=== PATIENT | female | born 1950 | race Caucasian/White ===

== ENCOUNTER 2024-02-16 07:30 | Outpatient (RCR) | payer MEDICARE, MEDICAID, SELFPAY | END 2024-02-23 23:59 | disposition home or self-care (01) | LOC: INF 07:30 | PROVIDERS: Visit Provider Internal Medicine Hematology & Oncology | DX: C34.92 Malignant neoplasm of unspecified part of left bronchus or lung (principal) | CPT/HCPCS: G0463 ==

== ENCOUNTER 2024-03-08 07:42 | Outpatient (RCR) | payer MEDICARE, MEDICAID, SELFPAY | END 2024-03-25 23:59 | disposition home or self-care (01) | LOC: INF 07:42 | PROVIDERS: Visit Provider Internal Medicine Hematology & Oncology | DX: C34.92 Malignant neoplasm of unspecified part of left bronchus or lung (principal); F17.210 Nicotine dependence, cigarettes, uncomplicated; Z90.710 Acquired absence of both cervix and uterus; J43.9 Emphysema, unspecified | CPT/HCPCS: G0463 ==

== ENCOUNTER 2024-05-03 07:30 | Outpatient (RCR) | payer MEDICARE, MEDICAID, SELFPAY | END 2024-05-05 15:27 | disposition home or self-care (01) | LOC: INF 07:30 | PROVIDERS: Visit Provider Internal Medicine Hematology & Oncology | DX: C34.92 Malignant neoplasm of unspecified part of left bronchus or lung (principal) | CPT/HCPCS: G0463 ==

== ENCOUNTER 2024-06-02 13:08 | Outpatient (OUT) | payer MEDICARE, MEDICAID, SELFPAY ==
--- NOTE | 2024-06-02 13:10 | VEIN_ITS ---
[place] [address] Patient Name: NICOLAS PATEL MRN: [id number] date: 1950 Sex: F Assigned Patient Location: Current Patient Location: Accession/Order Number: [id number] Exam Date: 06/02/2024 13:10 Report Date: 06/02/2024 15:39 At the request of: EUNICE TAYLOR Procedure: VC US Carotid EXAM: VC US Carotid HISTORY: Bilateral carotid bruit R09.89 COMPARISON: None. TECHNIQUE: Grayscale, color and Doppler FINDINGS: Right carotid artery PSV/EDV centimeters per second: Moderate atherosclerotic plaque CCA: 91/28 ICA: 99/33 Bulb: 81/26 ECA: 93/40 Vertebral: 43/12, antegrade ICA/CCA ratio 1.3 Maximum area of reduction 56% in the proximal ICA Left carotid artery PSV/EDV centimeters per second: Moderate atherosclerotic plaque CCA: 83/26 ICA: 167/55 Bulb: 87/31 ECA: 91/20 Vertebral: 29/14, antegrade ICA/CCA ratio 2.6 Maximum area of reduction 58% in the bulb, 75% in the proximal ICA VEIN/VC US Carotid IMPRESSION: 56% area reduction proximal right ICA 75% area reduction proximal left ICA Electronically authenticated by: NIK MONTEIRO Date: 06/02/2024 15:39
--- NOTE | 2024-06-02 13:10 | VEIN_ITS ---
The [address] [address] Patient Name: NICOLAS PATEL MRN: [id number] date: 1950 Sex: F Assigned Patient Location: Current Patient Location: Accession/Order Number: [id number] Exam Date: 06/02/2024 13:10 Report Date: 06/02/2024 16:42 At the request of: EUNICE TAYLOR Procedure: VC SEGMENTAL PRESSURES EXAM: VC SEGMENTAL PRESSURES HISTORY: I73.9 Peripheral vascular disease COMPARISON: None. FINDINGS: Segmental pressures presented as follows (right, left) in mmHg. Brachial: 120, 121 Upper thigh: 131, 130 Lower thigh: 138, 135 Calf: 138, 117 DPA: 106, 127 SCRAP HANDLER: 113, 117 1st Toe: 83, 85 DHEERAJ: 0.93, 1.05 TBI: 0.69, 0.70 The ABIs demonstrates mild right arterial occlusive disease, normal left The TBI's are normal PVR waveforms: Right leg: Thigh: Normal Above knee: Normal Below knee: Normal Right ankle: Normal Metatarsal: Mild ischemia Left leg: Thigh: Normal Above knee: Normal Below knee: Normal Right ankle: Normal Metatarsal: Normal VEIN/VC SEGMENTAL PRESSURES IMPRESSION: Mild ischemic waveform right metatarsal Normal left Electronically authenticated by: NIK MONTEIRO Date: 06/02/2024 16:42
--- OUTSIDE RECORDS SUMMARY | 2024-06-02 13:23 | XMS_ITS | CCD ---
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 Name Role Phone House DO, Sr Miguel Vargas Primary Care Provider WILLIE FORTUNE Admitting Unavailable WILLIE OFRTUNE Attending Unavailable WILLIE FORTUNE Referring Unavailable HOUSE, SR MIGUEL Vargas Primary Care Unavailable HOUSE, DR RIVERA Admitting Unavailable HOUSE, DR RIVERA Attending Unavailable HOUSE, DR RIVERA Primary Care Unavailable HOUSE, DR RIVERA Admitting Unavailable HOUSE, DR RIVERA Attending Unavailable HOUSE, DR RIVERA Consulting Unavailable HOUSE, DR RIVERA Primary Care Unavailable House Miguel NIÑO Primary Care Provider House Miguel NIÑO Primary Care Provider Urszula Etienne Attending Unavailable Miguel Brock Primary Care Unavailable Anisha Wolf Referring Unavailable Urszula Etienne Admitting Unavailable DO Miguel Brock Primary Care Provider MD Urszula Etienne Attending Provider MD Anisha Wolf Referring Provider EILEEN FONSECA Admitting Unavailable EILEEN FONSECA Attending Unavailable HOUSE MIGUEL Sam Primary Care Unavailable EILEEN FONSECA Attending Unavailable EILEEN FONSECA M Referring Unavailable MIGUEL BROCK Primary Care Unavailable FELIX BURNS Attending Unavailable HOUSEMIGUEL Primary Care Unavailable EILEEN FONSECA M Admitting Unavailable RAYMUNDOEILEEN M Attending Unavailable MIGUEL BROCK Primary Care Unavailable PAULA CARNES Attending Unavailable HOUSE, MIGUEL Vargas Primary Care Unavailable RAYMUNDOEILEEN FERNANDEZ M Attending Unavailable RAYMUNDO, EILEEN M Referring Unavailable HOUSE, MIGUEL P Primary Care Unavailable EILEEN FONSECA M Attending Unavailable RAYMUNDOMIANA M Referring Unavailable HOUSE, MIGUEL P Primary Care Unavailable HOUSE, MIGUEL P Primary Care Unavailable TERI, CHAUNCEY L Attending Unavailable TERI, CHAUNCEY L Attending Unavailable TERI, CHAUNCEY L Referring Unavailable HOUSE, MIGUEL P Primary Care Unavailable TERI, CHAUNCEY L Attending Unavailable TERI, CHAUNCEY L Referring Unavailable HOUSE, MIGUEL P Primary Care Unavailable RAYMUNDO, EILEEN M Referring Unavailable HOUSE, MIGUEL P Primary Care Unavailable HOUSE, MIGUEL P Primary Care Unavailable GHENCIAFATEMEH Olson Attending Unavailable GHENCIAN, FATEMEH Attending Unavailable GHENCIAN, FATEMEH Referring Unavailable HOUSE, MIGUEL P Primary Care Unavailable RAYMUNDO, EILEEN M Referring Unavailable HOUSE, MIGUEL P Primary Care Unavailable ANISHA WOLF Referring Unavailable HOUSE, MIGUEL P Primary Care Unavailable HOUSE, MIGUEL P Referring Unavailable HOUSE, MIGUEL P Primary Care Unavailable HOUSE, MIGUEL P Referring Unavailable HOUSE, MIGUEL P Primary Care Unavailable RAYMUNDO, EILEEN M Referring Unavailable HOUSE, MIGUEL P Primary Care Unavailable HOUSE, MIGUEL P Primary Care Unavailable BREANNE ANNE Attending Unavailable MONICA MANUEL Attending Unavailable MONICA MANUEL Referring Unavailable HOUSE, MIGUEL P Primary Care Unavailable RAYMUNDO, EILEEN M Attending Unavailable RAYMUNDO, EILEEN M Referring Unavailable HOUSE, MIGUEL P Primary Care Unavailable RAYMUNDO, EILEEN M Attending Unavailable RAYMUNDO, EILEEN M Referring Unavailable HOUSE, MIGUEL P Primary Care Unavailable RAYMUNDO, EILEEN M Attending Unavailable RAYMUNDO, EILEEN M Referring Unavailable HOUSE, MIGUEL P Primary Care Unavailable HOUSE, MIGUEL P Primary Care Unavailable SYL AMARO Attending Unavailable BETO BLACKWOOD Admitting Unavailable CARDIOLOGY, [facility] Consulting Unavailable SYL AMARO Attending Unavailable SYL AMARO Referring Unavailable HOUSE, MIGUEL P Primary Care Unavailable RAYMUNDO, EILEEN M Attending Unavailable HOUSE, MIGUEL P Referring Unavailable HOUSE, MIGUEL P Primary Care Unavailable RAYMUNDO, EILEEN M Attending Unavailable HOUSE, MIGUEL P Referring Unavailable HOUSE, MIGUEL P Primary Care Unavailable RAYMUNDO, EILEEN M Attending Unavailable HOUSE, MIGUEL P Referring Unavailable HOUSE, MIGUEL P Primary Care Unavailable House, DO Rivera Primary Care Provider [phone] MD Urszula Etienne Attending Provider MD Anisha Wolf Referring Provider VINOD, MIGUEL P Primary Care Unavailable Renzo Gilliland MD Attending Unavailable HOUSE, MIGUEL P Admitting Unavailable HOUSE, MIGUEL P Attending Unavailable HOUSE, MIGUEL P Primary Care Unavailable HOUSE, MIGUEL P Primary Care Unavailable Renzo Gilliland MD Attending Unavailable HOUSE, MIGUEL Vargas Primary Care Unavailable HOUSE, MIGUEL Vargas Primary Care Unavailable Renzo Gilliland MD Attending Unavailable HOUSE, MIGUEL Vargas Primary Care Unavailable Renzo Gilliland MD Attending Unavailable Allergies Allergy Classification Reported Allergen(s) Allergy Type Date of Onset Reaction(s) Facility (2 sources) Sulfamethoxazole / Trimethoprim; Translations: [Bactrim] Drug Allergy [facility] Repository (10 sources) Sulfamethoxazole / Trimethoprim; Translations: [SULFAMETHOXAZOLE-TR IMETHOPRIM] Drug Allergy [employer] Medications Current Medications Medication Drug Class(es) Dates Sig (Normalized) Sig (Original) acetaminophen 325 mg oral tablet (2 sources) Start: 02-12-2021 acetaminophen (TYLENOL) tablet 650 mg End: 02-13-2021 take 2 tablets by mouth every six hours as needed for pain acetaminophen (TYLENOL) 325 MG tablet Take 650 mg by mouth every 6 hours as needed for Pain 0 02/13/2021 Discontinued (Stop Taking at Discharge) [id number] 200 actuat albuterol 0.09 mg/actuat metered dose inhaler (19 sources) beta2-Adrenergic Agonist Start: 08-03-2023 take 2 puff(s) by mouth every four hours as needed albuterol (PROVENTIL HFA;VENTOLIN HFA) 90 mcg/actuation inhaler Indications: Moderate COPD (chronic obstructive pulmonary disease) ([facility]) TAKE 2 PUFFS BY MOUTH EVERY 4 HOURS NEEDED FOR WHEEZE 6.7 g 11 08/03/2023 Active Start: 05-11-2023 take 1 dose by inhal ation four times daily as needed for wheezing albuterol (PROVENTIL,VENTOLIN) 2.5 mg /3 mL (0.083 %) nebulizer solution Indications: Chronic obstructive pulmonary disease, unspecified COPD type ([facility]) INHALE ONE VIAL VIA NEBULIZER FOUR TIMES A DAY NEEDED FOR WHEEZING 360 mL 10 05/11/2023 Active Start: 10-09-2020 take 2 puff(s) by mo uth every four hours as needed for wheezing albuterol sulfate HFA 108 (90 Base) MCG/ACT inhaler INHALE 2 PUFFS BY MOUTH EVERY 4 HOURS NEEDED FOR WHEEZING 0 10/09/2020 Active Start: 09-07-2020 albuterol (PRO VENTIL) (2.5 MG/3ML) 0.083% nebulizer solution INHALE 3 ML VIA NEBULIZER FOUR TIMES A DAY NEEDED FOR WHEEZING 0 09/07/2020 Active Start: 01-12-2019 take 2.5 mg by inhal ation every four hours Albuterol Sulfate Active 2.5 MG INHALATION Q4H January 12, 2019 12:00am take 2 puff(s) by in halation every six hours as needed for wheezing albuterol sulfate HFA 108 (90 BASE) MCG/ACT inhaler Inhale 2 puffs into the lungs every 6 hours as needed for Wheezing 0 Active apixaban 5 mg oral tablet (11 sources) Factor Xa Inhibitor Start: 01-12-2019 End: 02-13-2021 take 1 tablet by mouth twice daily ELIQUIS 5 mg tablet Indications: Paroxysmal atrial fibrillation (CMS-HCC) TAKE 1 TABLET BY MOUTH TWICE DAILY 60 tablet 10 05/06/2022 Active aspirin 81 mg delayed release oral tablet (10 sources) Platelet Aggregation Inhibitor, Nonsteroidal Anti-inflammatory Drug Start: 02-18-2021 take 1 tablet by mouth once daily aspirin 81 mg Take 1 tablet (81 mg total) by mouth daily. 60 tablet 1 02/18/2021 Active Start: 02-13-2021 take 1 tablet by denae th once daily aspirin 81 MG chewable tablet Take 1 tablet by mouth daily 30 tablet 3 02/13/2021 Active Start: 02-13-2021 aspirin chewab le tablet 81 mg Start: 12-04-2015 End: 02-11-2021 take 1 tablet by mouth once daily aspirin (GUILHERME ASPIRIN) 325 MG tablet Take 1 tablet by mouth daily 30 tablet 0 12/04/2015 02/11/2021 Discontinued (LIST CLEANUP) atorvastatin 80 mg oral tablet (1 source) HMG-CoA Reductase Inhibitor Start: 02-13-2021 take 1 tablet by mouth once daily atorvastatin (LIPITOR) 80 MG tablet Take 1 tablet by mouth daily 30 tablet 3 02/13/2021 Active Start: 02-13-2021 take 1 tablet by denae th once daily atorvastatin (LIPITOR) 80 MG tablet Take 1 tablet by mouth daily 30 tablet 3 02/13/2021 Active calcium carbonate 1250 mg / cholecalciferol 200 unt oral tablet (8 sources) Vitamin D Start: 03-26-2022 take 2 tablets by mouth three times daily at mealtime OYSTER SHELL CALCIUM-VIT D3 500 mg-5 mcg (200 unit) per tablet TAKE 2 TABLETS BY MOUTH THREE TIMES DAILY WITH MEALS 540 tablet 1 03/26/2022 Active take 1 tablet by denae th three times daily calcium-vitamin D (OSCAL-500) 500-200 MG -UNIT per tablet Take 1 tablet by mouth 3 times daily 0 Active clopidogrel 75 mg oral tablet (2 sources) [id number] Platelet Inhibitor Start: 02-13-2021 take 1 tablet by mouth once daily clopidogrel (PLAVIX) 75 MG tablet Take 1 tablet by mouth daily 30 tablet 3 02/13/2021 Active Start: 02-13-2021 clopidogrel (P LAVIX) tablet 75 mg colloidal oatmeaL (AVEENO SOOTHING BATH) packet (7 sources) Start: 12-16-2021 colloidal oatm eaL (AVEENO SOOTHING BATH) packet Apply 1 application topically daily. 8 packet 0 12/16/2021 Active 24 hr dilTIAZem hydrochloride 120 mg extended release oral capsule (10 sources) Calcium Channel Nataly Start: 04-18-2019 take 120 mg by mouth once daily Diltiazem Hcl Active 120 MG PO Daily April 18, 2019 12:00am doxycycline hyclate 100 mg oral capsule (2 sources) Tetracycline-cl ass Drug Start: 01-28-2024 End: 02-11-2024 take 1 capsule by mouth in the morning, then take 1 capsule by mouth at bedtime doxycycline (VIBRAMYCIN) 100 mg capsule Take 1 capsule (100 mg total) by mouth in the morning and 1 capsule (100 mg total) before bedtime. Do all this for 14 days. 28 capsule 0 01/28/2024 02/11/2024 Active Start: 10-19-2023 End: 10-29-2023 take 1 capsule by mouth in the morning, then take 1 capsule by mouth at bedtime doxycycline (VIBRAMYCIN) 100 mg capsule Take 1 capsule (100 mg total) by mouth in the morning and 1 capsule (100 mg total) before bedtime. Do all this for 10 days. 20 capsule 0 10/19/2023 10/29/2023 Active ezetimibe 10 mg oral tablet (7 sources) Dietary Cholesterol Absorption Inhibitor Start: 12-02-2022 ezetimibe (ZETIA) 10 mg tablet fluticasone propionate 0.05 mg/actuat metered dose nasal spray (7 sources) Corticosteroid Start: 03-03-2023 take 1 spray(s) nasal route once daily fluticasone propionate (FLONASE) 50 mcg/actuation nasal spray Indications: Acute sinusitis, recurrence not specified, unspecified location SPRAY 1 SPRAY INTO EACH NOSTRIL EVERY DAY 32 mL 4 03/03/2023 Active 60 actuat fluticasone propionate 0.25 mg/actuat / salmeterol 0.05 mg/actuat dry powder inhaler (10 sources) Corticosteroid, beta2-Adrenergic Agonist Start: 11-27-2021 take 1 puff(s) by mouth twice daily WIXELA INHUB 250-50 mcg/dose DISKUS TAKE 1 PUFF BY MOUTH TWICE A DAY 60 each 9 11/27/2021 Active Start: 01-12-2019 Fluticasone Pr opion-Salmeterol (Advair Diskus) 250-50 mcg/dose Blister With Device Active 1 INH INHALATION Twice daily January 12, 2019 12:00am take 1 puff(s) by in halation twice daily fluticasone-salmeterol (ADVAIR) 250-50 MCG/DOSE AEPB Inhale 1 puff into the lungs 2 times daily 0 Active [id number] IN (1 source) take 1 puff(s) by inhalation once daily [id number] IN Inhale 1 puff into the lungs daily 0 Active insulin glargine 100 unt/ml injectable solution (17 sources) Insulin Analog St ar t: 03 -2 0 19 inject 16 [IU] by subcutaneous injection once daily Insulin Glargine (Lantus U-100 Insulin) 100 unit/mL Solution Active 16 UNIT SUBCUT Daily January 12, 2019 12:00am Start: 12-13-2017 LANTUS SOLOSTA R U-100 INSULIN 100 unit/mL (3 mL) insulin pen 16 Units in the morning. 0 12/13/2017 Active inject 0.16 mL by christine bcutaneous injection once daily insulin glargine (LANTUS) 100 unit/mL injection Inject 0.16 mL (16 Units total) under the skin Daily at 0700. 0 Active insulin glargine (LANTUS) 100 UNIT/ML injection vial Inject 16 Units into the skin nightly 0 Active 24 hr isosorbide mononitrate 30 mg extended release oral tablet (8 sources) Nitrate Vasodilator Start: 08-28-2022 take 1 tablet by mouth once daily isosorbide mononitrate (IMDUR) 30 mg 24 hr tablet TAKE 1 TABLET BY MOUTH EVERY DAY 90 tablet 0 08/28/2022 Active End: 02-13-2021 take 1 tablet by mouth once daily isosorbide mononitrate (IMDUR) 30 MG extended release tablet Take 30 mg by mouth daily 0 02/13/2021 Discontinued (Stop Taking at Discharge) ammonium lactate 120 mg/ml topical lotion (7 sources) Start: 12-16-2021 ammonium lacta te (LAC-HYDRIN) 12 % lotion Apply 1 application topically as needed for dry skin. 400 g 0 12/16/2021 Active levothyroxine sodium 0.125 mg oral tablet (16 sources) l-Thyroxi ne Start: 12-03-2022 take 1 tablet by mouth once daily in the morning levothyroxine (SYNTHROID, LEVOTHROID) 125 MCG tablet Indications: S/P total thyroidectomy TAKE 1 TABLET BY MOUTH EVERY DAY IN THE MORNING 90 tablet 1 09/23/2023 Active Start: 02-07-2021 take 1 tablet by denae th once daily levothyroxine (SYNTHROID) 100 MCG tablet Take 100 mcg by mouth daily 0 02/07/2021 Active lidocaine 0.05 mg/mg medicated patch (1 source) Antiarrhythmic, Amide Local Anesthetic Start: 05-17-2024 apply 1 dose topically once daily Lidocaine Active 2 PATCH TOPICAL Daily May 17, 2024 12:00am leave on most painful area for up to 12 hrs 1 ml morphine sulfate 2 mg/ml cartridge (2 sources) Opioid Agonist Start: 02-12-2021 morphine (PF) injection 2 mg Start: 02-12-2021 End: 02-12-2021 morphine 2 MG/ML injection mupirocin 0.02 mg/mg topical ointment (20 sources) RNA Synthetase Inhibitor Antibacterial Start: 08-03-2023 mupirocin (BACTR OBAN) 2 % ointment Indications: Erysipelas APPLY 1 APPLICATION TOPICALLY TO AFFECTED AREA THREE TIMES A DAY 22 g 0 08/03/2023 Active Start: 01-15-2023 mupirocin (SREEDHAR TROBAN) 2 % ointment Indications: Erysipelas Apply 1 Application topically in the morning and 1 Application before bedtime. Apply to affected area t.i.d.. 22 g 0 01/15/2023 Active Start: 01-07-2022 mupirocin (SREEDHAR TROBAN) 2 % ointment Indications: Nasal vestibulitis Applied intranasally bilaterally 2 times daily 15 g 0 01/07/2022 Active nicotine 4 mg inhalation solution (7 sources) Cholinergic Nicotinic Agonist Start: 05-22-2021 nicotine (NICOTROL) 10 mg inhaler Indications: Tobacco abuse , Personal history of nicotine dependence , Cigarette nicotine dependence, uncomplicated 6 or more cartridges/day PRN [4 mg/cartridge]; do not exceed 16 cartridges/day 42 each 0 05/22/2021 Active nitroglycerin 0.4 mg sublingual tablet (8 sources) Nitrate Vasodilator Start: 02-05-2021 nitroglyce rin (NITROSTAT) 0.4 MG SL tablet 1 under the tongue as needed for angina, may repeat q5mins for up three doses 25 tablet 1 02/05/2021 Active nitroGLYCERIN (N ITROSTAT) 0.[address] 0.4 mg under the tongue every 5 minutes as needed for Chest pain up to max of 3 total doses. If no relief after 1 dose, call 911. 0 Active 2 ml ondansetron 2 mg/ml injection (1 source) Serotonin-3 Receptor Antagonist Start: 02-12-2021 ondansetron (ZOFRAN) injection 4 mg oxyCODONE hydrochloride 5 mg oral tablet (2 sources) Opioid Agonist Start: 04-25-2019 take 5 mg by mouth every six hours Oxycodone Active 5 MG PO Q6H 30 7 April 25, 2019 rosuvastatin calcium 40 mg oral tablet (7 sources) HMG-CoA Reductase Inhibitor Start: 10-16-2022 take 1 tablet by mouth once daily rosuvastatin (CRESTOR) 40 mg tablet Indications: Paroxysmal atrial fibrillation (CMS-HCC) , Cerebrovascular accident (CVA), unspecified mechanism (CMS-HCC) , Atherosclerosis of [place] coronary artery of [place] heart without angina pectoris , Status post insertion of drug eluting coronary artery stent TAKE 1 TABLET BY MOUTH EVERY DAY 30 tablet 2 10/16/2022 Active 1000 ml sodium chloride 9 mg/ml injection (5 sources) Start: 02-12-2021 sodium chloride flush 0.9 % injection 5-40 mL Start: 02-12-2021 0.9 % sodium c hloride infusion sotalol hydrochloride 120 mg oral tablet (2 sources) Antiarrhythmic Start: 04-23-2019 take 120 mg by mouth twice daily Sotalol Active 120 MG PO Twice daily 60 April 23, 2019 12:00am 10 actuat tiotropium 0.0025 mg/actuat inhalation spray (10 sources) Anticholinergic Start: 09-05-2021 take 2 puff(s) by inhalation once daily tiotropium bromide (SPIRIVA RESPIMAT) 2.5 mcg/actuation mist Indications: COPD without exacerbation ([facility]) Inhale 2 puffs daily. 4 g 10 09/05/2021 Active Start: 01-12-2019 End: 02-12-2021 take 1 capsule by inhalation once daily Tiotropium [place] (Spiriva With Handihaler) 18 mcg Capsule, W/Inhalation Device Active 1 CAP INHALATION Daily January 12, 2019 12:00am tiZANidine 4 mg oral tablet (7 sources) Central alpha-2 Adrenergic Agonist Start: 04-15-2022 take 2 mg by mouth every six hours as needed tiZANidine (ZANAFLEX) 4 mg tablet Take 0.5 tablets (2 mg total) by mouth every 6 (six) hours as needed for muscle spasms. 30 tablet 0 04/15/2022 Active Completed/Discontinued Medications Medication Drug Class(es) Dates Sig (Normalized) Sig (Original) acetylcysteine 100 mg/ml inhalation solution (5 sources) Antidote, Mucolytic, Antidote for Acetaminophen Overdose Start: 06-02-2023 End: 01-07-2024 take 4 mL by inhalation in the morning acetylcysteine (MUCOMYST) 100 mg/mL (10 %) nebulizer solution Indications: Moderate COPD (chronic obstructive pulmonary disease) ([facility]) , Cough, persistent Inhale 4 mL by nebulization in the morning and 4 mL before bedtime. 240 mL 3 06/02/2023 01/07/2024 Discontinued gabapentin 100 mg oral capsule (2 sources) Anti-epileptic Agent Start: 04-18-2019 End: 04-18-2019 Gabapentin Discontinued April 18, 2019 12:00am April 18, 2019 8:41am metFORMIN hydrochloride 500 mg oral tablet (1 source) Biguanide End: 02-11-2021 take 1 tablet by mouth twice daily at mealtime metFORMIN (GLUCOPHAGE) 500 MG tablet Take 500 mg by mouth 2 times daily (with meals) 0 02/11/2021 Discontinued (LIST CLEANUP) predniSONE 20 mg oral tablet (3 sources) Start: 04-13-2024 End: 04-13-2024 take 3 tablets by mouth once daily Prednisone Discontinued 20 MG PO Twice daily 60 April 13, 2024 12:00am April 13, 2024 11:40am Take three tablets by mouth daily. Start: 04-13-2024 End: 05-17-2024 take 3 tablets by mouth once daily at mealtime Prednisone Discontinued 60 MG PO Once 60 April 13, 2024 12:00am May 17, 2024 9:30am TAKE THREE TABLETS DAILY, IN THE MORNING WITH FOOD. End: 02-11-2021 take 1 tablet by mouth twice daily predniSONE (DELTASONE) 10 MG tablet Take 10 mg by mouth 2 times daily 0 02/11/2021 Discontinued (LIST CLEANUP) traMADol hydrochloride 50 mg oral tablet (2 sources) Opioid Agonist Start: 01-12-2019 End: 04-25-2019 take 50 mg by mouth every six hours Tramadol Discontinued 50 MG PO Q6H January 12, 2019 12:00am April 25, 2019 12:34pm Problems Active Problems Problem Classification Problem Date Documented Date Episodic/Chronic Acute cerebrovascular disease (7 sources) Cerebrovascular accident; Translations: [Cerebral infarction, unspecified] Onset: 02-14-2021 02-14-2021 Chronic Cancer of bronchus; lung (9 sources) Malignant neoplasm of upper lobe, left bronchus or lung; Translations: [Adenocarcinoma of left lung] Onset: 02-12-2024 02-24-2024 Chronic Cardiac and circulatory congenital anomalies (8 sources) Pulmonary arteriovenous malformation; 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] Onset: 05-26-2019 05-26-2019 Chronic Cardiac dysrhythmias (9 sources) Paroxysmal atrial fibrillation; Translations: [Paroxysmal atrial fibrillation] Onset: 12-10-2018 05-07-2020 Chronic Chronic obstructive pulmonary disease and bronchiectasis (15 sources) Moderate chronic obstructive pulmonary disease; Translations: [Chronic obstructive pulmonary disease, unspecified] Onset: 09-23-2018 07-17-2022 Chronic Complications of surgical procedures or medical care (8 sources) Postoperative hypothyroidism; Translations: [Postprocedural hypothyroidism] Onset: 09-01-2022 09-01-2022 Chronic Coronary atherosclerosis and other heart disease (14 sources) New onset angina; Translations: [Angina pectoris, unspecified] Onset: 02-05-2021 02-05-2021 Chronic Diabetes mellitus with complications (7 sources) Type 2 diabetes mellitus with peripheral angiopathy; Translations: [Type 2 diabetes mellitus with diabetic peripheral angiopathy without gangrene] Onset: 08-09-2020 09-19-2020 Chronic Diabetes mellitus without complication (3 sources) Diabetes mellitus; Translations: [Type 2 diabetes mellitus without complications] Onset: 01-25-2024 10-07-2023 Chronic Esophageal disorders (1 source) Gastro-esophageal reflux disease without esophagitis; Translations: [Gastro-esophageal reflux disease without esophagitis] Onset: 04-26-2024 Chronic Malaise and fatigue (2 sources) Other fatigue; Translations: [Weakness] Onset: 02-01-2024 Episodic Nonspecific chest pain (2 sources) Chest pain, unspecified; Translations: [Chest pain] Onset: 04-25-2024 Episodic Other aftercare (2 sources) Patient encounter status; Translations: [Encounter for palliative care] 03-07-2024 Episodic Other ear and sense organ disorders (7 sources) Hearing loss; Translations: [Unspecified hearing loss, unspecified ear] Onset: 10-03-2021 10-03-2021 Chronic Other lower respiratory disease (8 sources) Dyspnea; Translations: [Shortness of breath] Onset: 02-05-2021 02-05-2021 Episodic Other lower respiratory disease (1 source) Dyspnea on exertion; Translations: [Other forms of dyspnea] 01-07-2024 Episodic Other nervous system disorders (2 sources) Pain due to neoplastic disease; Translations: [Neoplasm related pain (acute) (chronic)] 03-07-2024 Chronic Other nutritional; endocrine; and metabolic disorders (8 sources) Glunu-1-ncivyiaakez deficiency; Translations: [Jqimw-0-jqtfjbjzgiq deficiency] Onset: 08-09-2020 08-09-2020 Chronic Other nutritional; endocrine; and metabolic disorders (1 source) Hypocalcemia; Translations: [Hypocalcemia] Onset: 04-25-2024 Chronic Other nutritional; endocrine; and metabolic disorders (1 source) Iefba-7-cjbwztlpxat deficiency; Translations: [Miecr-9-mwmplghfnrl deficiency] Onset: 08-09-2020 Chronic Other screening for suspected conditions (not mental disorders or infectious disease) (9 sources) CT of chest abnormal; Translations: [Abnormal findings on diagnostic imaging of other specified body structures] Onset: 09-23-2018 09-23-2018 Chronic Peripheral and visceral atherosclerosis (15 sources) Peripheral vascular disease, unspecified; Translations: [Peripheral vascular disease] Onset: 05-24-2019 Chronic Residual codes; unclassified (1 source) Genetic carrier of other disease; Translations: [Genetic carrier of other disease] Onset: 03-03-2024 Episodic Spondylosis; intervertebral disc disorders; other back problems (7 sources) Cervical spondylosis; Translations: [Spondylosis without myelopathy or radiculopathy, cervical region] Onset: 12-15-2018 12-15-2018 Chronic Thyroid disorders (1 source) Hypothyroidism, unspecified; Translations: [Hypothyroidism, unspecified] Onset: 01-25-2024 Chronic Unclassified (1 source) LANGULAR OBSTRUCTION AND CHRONIC COUGH Onset: 01-26-2024 Unclassified (1 source) Subacute cough; Translations: [Subacute cough] Onset: 02-01-2024 Unclassified (1 source) Post-op Problem Onset: 02-01-2024 Unclassified (1 source) congestion, eye issue Onset: 10-19-2023 Past or Other Problems Problem Classification Problem Date Documented Date Episodic/Chronic Alcohol-related disorders (7 sources) Alcohol intoxication; Translations: [Alcohol use, unspecified with intoxication, unspecified] Onset: 08-09-2020 08-09-2020 Episodic Cardiac dysrhythmias (1 source) Tachycardia, unspecified; Translations: [Tachycardia, unspecified] Onset: 10-19-2023 Episodic Fracture of upper limb (7 sources) Closed fracture proximal humerus, four part; Translations: [Other displaced fracture of upper end of left humerus, initial encounter for closed fracture] Onset: 09-14-2018 09-14-2018 Episodic Joint disorders and dislocations; trauma-related (7 sources) Dislocation of joint of upper limb; Translations: [Anterior dislocation of left humerus, initial encounter] Onset: 09-14-2018 09-14-2018 Episodic Mood disorders (7 sources) Mood disorders Onset: 06-05-2021 06-05-2021 Other connective tissue disease (8 sources) Full thickness rotator cuff tear; Translations: [Complete rotator cuff tear or rupture of left shoulder, not specified as traumatic] Onset: 12-04-2015 12-04-2015 Episodic Other lower respiratory disease (8 sources) Nodule of lung; Translations: [Solitary pulmonary nodule] Onset: 05-26-2019 05-26-2019 Episodic Other lower respiratory disease (3 sources) Solitary pulmonary nodule; Translations: [Solitary pulmonary nodule] Onset: 05-26-2019 Episodic Other lower respiratory disease (1 source) Shortness of breath; Translations: [Shortness of breath] Onset: 01-25-2024 Episodic Other lower respiratory disease (1 source) Chronic cough; Translations: [Chronic cough] Onset: 12-02-2023 Episodic Other lower respiratory disease (1 source) Other nonspecific abnormal finding of lung field; Translations: [Other nonspecific abnormal finding of lung field] Onset: 10-19-2023 Episodic Other lower respiratory disease (1 source) Cough Onset: 10-19-2023 Episodic Other lower respiratory disease (1 source) Other forms of dyspnea; Translations: [Other forms of dyspnea] Onset: 01-07-2024 Episodic Other screening for suspected conditions (not mental disorders or infectious disease) (9 sources) Cardiovascular stress test abnormal; Translations: [Abnormal result of other cardiovascular function study] Onset: 02-05-2021 Episodic Other upper respiratory disease (7 sources) Nasal vestibulitis; Translations: [Other specified disorders of nose and nasal sinuses] Onset: 01-07-2022 01-07-2022 Episodic Other upper respiratory infections (7 sources) Acute sinusitis; Translations: [Acute sinusitis, unspecified] Onset: 08-22-2021 Resolved: 09-05-2021 09-05-2021 Episodic Pathological fracture (7 sources) Pathological fracture of humerus due to osteoporosis; Translations: [Age-related osteoporosis with current pathological fracture, left humerus, initial encounter for fracture] Onset: 09-14-2018 09-14-2018 Episodic Residual codes; unclassified (8 sources) Tobacco user; Translations: [Tobacco use] Onset: 09-23-2018 05-07-2020 Episodic Residual codes; unclassified (7 sources) Genetic disorder carrier; Translations: [Genetic carrier of other disease] Onset: 09-23-2018 09-23-2018 Episodic Residual codes; unclassified (1 source) Tobacco use; Translations: [Tobacco use] Onset: 05-07-2020 Episodic Spondylosis; intervertebral disc disorders; other back problems (7 sources) Neck pain; Translations: [Cervicalgia] Onset: 12-15-2018 12-15-2018 Episodic Results Test Name Value Interpretation Reference Range Facility Consultation/Specialist Note on 05-26-2024 Consultation/Specialist Note [id number] Consultation/Specialist Note on 05-19-2024 Consultation/Specialist Note [id number] [address] Consultation/Specialist Note on 05-12-2024 Consultation/Specialist Note [id number] [address] Consultation/Specialist Note [id number] [address] [place] [address] CBC AND AUTO DIFFon 04-27-20 24 ABSOLUTE BASOPHIL 0.1 X10E9/L Normal 0.0-0.2 [facility] Comment on above: Performed By: #### C JORGE CMP, 73948-4 ####[facility] ([id number])[address] [place] [address] 09352 ABSOLUTE NEUTROPHIL 6.3 X10E9/L Normal 1.5-6.[address] [facility] Comment on above: Performed By: #### C JORGE CMP, 51075-0 ####[facility] ([id number])[address] [place] [address] 85044 Basophils/100 WBC (Bld) 1.2 % Normal [facility] Comment on above: Performed By: #### C MOJGAN PATEL, ####[facility] ([id number])[address] [place] [address] 78102 Eosinophils (Bld) [#/Vol] 0.2 10*3/uL Normal 0.0-0.4 [facility] Comment on above: Performed By: #### Neymar PATEL CMP, ####[facility] ([id number])[address] [place] [address] 99164 Eosinophils/100 WBC (Bld) 2.8 % Normal [facility] Comment on above: Performed By: #### Neymar PATEL CMP, ####[facility] ([id number])[address] [place] [address] 35561 Erythrocyte distribution width (RBC) [Ratio] 15.1 % High 11.5-15.0 [facility] Comment on above: Performed By: #### Nyemar PATEL CMP, ####[facility] ([id number])[address] [place] [address] 85836 Hematocrit (Bld) [Volume fraction] 37.9 % Normal 35-47 [facility] Comment on above: Performed By: #### Neymar PATEL CMP, ####[facility] ([id number])[address] [place] [address] 51403 Hemoglobin (Bld) [Mass/Vol] 13.0 g/dL Normal 11.7-15.5 [facility] Comment on above: Performed By: #### Neymar PATEL CMP, ####[facility] ([id number])[address] [place] [address] 88679 Lymphocytes (Bld) [#/Vol] 0.8 10*3/uL Low 1.0-3.5 [facility] Comment on above: Performed By: #### C MOJGAN PATEL, ####[facility] ([id number])[address] [place] [address] 11111 Lymphocytes/100 WBC (Bld) 10.3 % Normal [facility] Comment on above: Performed By: #### C JORGE, CMP, ####[facility] ([id number])[address] [place] [address] 23993 MCH (RBC) [Entitic mass] 31.0 pg Normal 27-34 [facility] Comment on above: Performed By: #### C JORGE, CMP, ####[facility] ([id number])[address] [place] [address] 08453 MCHC (RBC) [Mass/Vol] 34.4 g/dL Normal 32-36 [facility] Comment on above: Performed By: #### Neymar PATEL, CMP, ####[facility] ([id number])[address] [place] [address] 90997 MCV (RBC) [Entitic vol] 90 fL Normal 80-100 [facility] Comment on above: Performed By: #### Neymar PATEL, CMP, ####[facility] ([id number])[address] [place] [address] 57831 Monocytes (Bld) [#/Vol] 0.7 10*3/uL Normal 0-0.9 [facility] Comment on above: Performed By: #### C JORGE, CMP, ####[facility] ([id number])[address] [place] [address] 73020 Monocytes/100 WBC (Bld) 8.4 % Normal [facility] Comment on above: Performed By: #### Neymar PATEL, CMP, ####[facility] ([id number])[address] [place] [address] 41202 Neutrophils/100 WBC (Bld) 77.3 % Normal [facility] Comment on above: Performed By: #### Neymar PATEL CMP, ####[facility] ([id number])[address] [place] [address] 95406 Platelet mean volume (Bld) [Entitic vol] 8.4 fL Normal 7-12 [facility] Comment on above: Performed By: #### Neymar PATEL CMP, ####[facility] ([id number])[address] [place] [address] 62841 Platelets (Bld) [#/Vol] 171 10*3/uL Normal 150-450 [facility] Comment on above: Performed By: #### Neymar PATEL CMP, ####[facility] ([id number])[address] [place] [address] 55238 RBC COUNT 4.21 X10E12/L Normal 3.80-5.20 [facility] Comment on above: Performed By: #### Neymar PATEL CMP, ####[facility] ([id number])[address] [place] [address] 02785 WBC (Bld) [#/Vol] 8.1 10*3/uL Normal 4.0-11.0 [facility] Comment on above: Performed By: #### Neymar PATEL CMP, ####[facility] ([id number])[address] [place] [address] 66945 COMPREHENSIVE METABOLIC PANE Kemal 04-27-2024 Albumin [Mass/Vol] 3.0 g/dL Low 3.2-5.3 [facility] Comment on above: Performed By: #### Neymar PATEL CMP, ####[facility] ([id number])[address] [place] [address] 91819 ALP [Catalytic activity/Vol] 43 U/L Normal 39-130 [facility] Comment on above: Performed By: #### C JORGE CMP, ####[facility] ([id number])[address] [place] [address] [place] [address] ALT [Catalytic activity/Vol] 27 U/L Normal 0-31 [facility] Comment on above: Performed By: #### C BCA, CMP, ####[facility] ([id number])[address] [place] [address] 80631 Anion gap [Moles/Vol] 7 mmol/L Normal 5-15 [facility] Comment on above: Performed By: #### Neymar PATEL CMP, ####[facility] ([id number])[address] [place] [address] 99566 AST [Catalytic activity/Vol] 15 U/L Normal 0-41 [facility] Comment on above: Performed By: #### C BCA, CMP, ####[facility] ([id number])[address] [place] [address] 00447 Bilirubin [Mass/Vol] 0.9 mg/dL Normal 0.3-1.[address] [facility] Comment on above: Performed By: #### Neymar BCA, CMP, ####[facility] ([id number])[address] [place] [address] [place] [address] Calcium [Mass/Vol] 7.5 mg/dL Low 8.5-10.5 [facility] Comment on above: Performed By: #### C BCA, CMP, ####[facility] ([id number])[address] [place] [address] 15926 Chloride [Moles/Vol] 97 mmol/L Low 98-[address] [facility] Comment on above: Performed By: #### Neymar BCA, CMP, ####[facility] ([id number])[address] [place] [address] [place] [address] CO2 [Moles/Vol] 29 mmol/L Normal 22-32 [facility] Comment on above: Performed By: #### C MOJGAN PATEL, 42000-7 ####[facility] ([id number])[address] [place] [address] [place] [address] Creatinine [Mass/Vol] 0.88 mg/dL Normal 0.40-1.00 [facility] Comment on above: Result Comment: METH OD TRACEABLE TO IDMS STANDARD Performed By: #### C MOJGAN PATEL, ####[facility] ([id number])[address] [place] [address] 77748 GFR/1.73 sq M.predicted among non-blacks MDRD (S/P/Bld) [Vol rate/Area] 70 mL/min/{1.73_m2} Normal >59 [facility] Comment on above: Result Comment: Reported eGFR is based on the CKD-EPI 2020 equation that does not use a race coefficient. Performed By: #### C MOJGAN PATEL, ####[facility] ([id number])[address] [place] [address] 11048 Glucose [Mass/Vol] 104 mg/dL High 65-99 [facility] Comment on above: Performed By: #### C MOJGAN PATEL, ####[facility] ([id number])[address] [place] [address] [place] [address] Potassium [Moles/Vol] 3.1 mmol/L Low 3.5-5.0 [facility] Comment on above: Performed By: #### C MOJGAN PATEL, ####[facility] ([id number])[address] [place] [address] [place] [address] Protein [Mass/Vol] 5.9 g/dL Low 6.0-8.0 [facility] Comment on above: Performed By: #### C JORGE [facility], 74059-2 ####[facility] ([id number])[address] [place] [address] 44047 Sodium [Moles/Vol] 133 mmol/L Low 134-146 [facility] Comment on above: Performed By: #### C MOJGAN PATEL, 90334-1 ####[facility] ([id number])[address] [place] [address] 29315 Urea nitrogen [Mass/Vol] 20 mg/dL Normal 5-27 [facility] Comment on above: Performed By: #### C MOJGAN PATEL, 51441-1 ####[facility] ([id number])[address] [place] [address] 05988 Glucose Glucometer (BldC) [M ass/Vol]on 04-27-2024 Glucose [Mass/Vol] 325 mg/dL High 65-99 [facility] MAGNESIUMon 04-27-2024 Magnesium [Mass/Vol] 2.2 mg/dL Normal 1.8-2.[address] [facility] Comment on above: Performed By: #### C JORGE [facility], 64304-5 ####[facility] ([id number])[address] [place] [address] 21152 CBC AND AUTO DIFFon 04-26-20 24 ABSOLUTE BASOPHIL 0.0 X10E9/L Normal 0.0-0.2 [facility] Comment on above: Performed By: #### C OVFLR #### [facility] ([id number]) [address] [place] [address] 00443 ABSOLUTE NEUTROPHIL 10.7 X10E9/L High 1.5-6.6 [facility] Comment on above: Performed By: #### C OVFLR #### [facility] ([id number]) [address] [place] [address] 34786 Basophils/100 WBC (Bld) 0.3 % Normal [facility] Comment on above: Performed By: #### C OVFLR #### [facility] ([id number]) [address] [place] [address] 78752 Eosinophils (Bld) [#/Vol] 0.1 10*3/uL Normal 0.0-0.4 [facility] Comment on above: Performed By: #### C OVFLR #### [facility] ([id number]) [address] [place] [address] 90524 Eosinophils/100 WBC (Bld) 0.7 % Normal [facility] Comment on above: Performed By: #### C OVFLR #### [facility] ([id number]) [address] [place] [address] 15330 Erythrocyte distribution width (RBC) [Ratio] 14.8 % Normal 11.5-15.0 [facility] Comment on above: Performed By: #### C OVFLR #### [facility] ([id number]) [address] [place] [address] 74988 Hematocrit (Bld) [Volume fraction] 41.2 % Normal 35-47 [facility] Comment on above: Performed By: #### C OVFLR #### [facility] ([id number]) [address] [place] [address] 89161 Hemoglobin (Bld) [Mass/Vol] 14.0 g/dL Normal 11.7-15.5 [facility] Comment on above: Performed By: #### C OVFLR #### [facility] ([id number]) [address] [place] [address] 25658 Lymphocytes (Bld) [#/Vol] 0.5 10*3/uL Low 1.0-3.5 [facility] Comment on above: Performed By: #### C OVFLR #### [facility] ([id number]) [address] [place] [address] 47697 Lymphocytes/100 WBC (Bld) 4.4 % Normal [facility] Comment on above: Performed By: #### C OVFLR #### [facility] ([id number]) [address] [place] [address] 92087 MCH (RBC) [Entitic mass] 30.9 pg Normal 27-34 [facility] Comment on above: Performed By: #### C OVFLR #### [facility] ([id number]) [address] [place] [address] 46717 MCHC (RBC) [Mass/Vol] 33.9 g/dL Normal 32-36 [facility] Comment on above: Performed By: #### C OVFLR #### [facility] ([id number]) [address] [place] [address] 29513 MCV (RBC) [Entitic vol] 91 fL Normal 80-100 [facility] Comment on above: Performed By: #### C OVFLR #### [facility] ([id number]) [address] [place] [address] 47991 Monocytes (Bld) [#/Vol] 1.0 10*3/uL High 0-0.9 [facility] Comment on above: Performed By: #### C OVFLR #### [facility] ([id number]) [address] [place] [address] 43394 Monocytes/100 WBC (Bld) 7.8 % Normal [facility] Comment on above: Performed By: #### C OVFLR #### [facility] ([id number]) [address] [place] [address] 77620 Neutrophils/100 WBC (Bld) 86.8 % Normal [facility] Comment on above: Performed By: #### C OVFLR #### [facility] ([id number]) [address] [place] [address] 09242 Platelet mean volume (Bld) [Entitic vol] 8.3 fL Normal 7-12 [facility] Comment on above: Performed By: #### C OVFLR #### [facility] ([id number]) [address] [place] [address] 39537 Platelets (Bld) [#/Vol] 168 10*3/uL Normal 150-450 [facility] Comment on above: Performed By: #### C OVFLR #### [facility] ([id number]) [address] [place] [address] 27237 RBC COUNT 4.52 X10E12/L Normal 3.80-5.20 [facility] Comment on above: Performed By: #### C OVFLR #### [facility] ([id number]) [address] [place] [address] 04030 WBC (Bld) [#/Vol] 12.3 10*3/uL High 4.0-11.0 [facility] Comment on above: Performed By: #### C OVFLR #### [facility] ([id number]) [address] [place] [address] 86265 COMPREHENSIVE METABOLIC PANE Kemal 04-26-2024 Albumin [Mass/Vol] 3.1 g/dL Low 3.2-5.3 [facility] Comment on above: Performed By: #### C OVFLR #### [facility] ([id number]) [address] [place] [address] 33883 ALP [Catalytic activity/Vol] 43 U/L Normal 39-130 [facility] Comment on above: Performed By: #### C OVFLR #### [facility] ([id number]) [address] [place] [address] 96199 ALT [Catalytic activity/Vol] 36 U/L High 0-31 [facility] Comment on above: Result Comment: SPEC IMEN HEMOLYZED, RESULTS INCREASED Performed By: #### C OVFLR #### [facility] ([id number]) [address] [place] [address] 00718 Anion gap [Moles/Vol] 10 mmol/L Normal 5-15 [facility] Comment on above: Performed By: #### C OVFLR #### [facility] ([id number]) [address] [place] [address] [place] [address] AST [Catalytic activity/Vol] 21 U/L Normal 0-41 [facility] Comment on above: Result Comment: SPEC IMEN HEMOLYZED, RESULTS INCREASED Performed By: #### C OVFLR #### [facility] ([id number]) [address] [place] [address] 64847 Bilirubin [Mass/Vol] 1.7 mg/dL High 0.3-1.[address] [facility] Comment on above: Result Comment: RESU LTS QUESTIONABLE DUE TO HEMOLYSIS Performed By: #### C OVFLR #### [facility] ([id number]) [address] [place] [address] 03638 Calcium [Mass/Vol] 7.2 mg/dL Low 8.5-10.5 [facility] Comment on above: Performed By: #### C OVFLR #### [facility] ([id number]) [address] [place] [address] [place] [address] Chloride [Moles/Vol] 96 mmol/L Low 98-[address] [facility] Comment on above: Performed By: #### C OVFLR #### [facility] ([id number]) [address] [place] [address] 11857 CO2 [Moles/Vol] 29 mmol/L Normal 22-32 [facility] Comment on above: Performed By: #### C OVFLR #### [facility] ([id number]) [address] [place] [address] 98780 Creatinine [Mass/Vol] 0.88 mg/dL Normal 0.40-1.00 [facility] Comment on above: Result Comment: METH OD TRACEABLE TO IDMS STANDARD Performed By: #### C OVFLR #### [facility] ([id number]) [address] [place] [address] 08126 GFR/1.73 sq M.predicted among non-blacks MDRD (S/P/Bld) [Vol rate/Area] 70 mL/min/{1.73_m2} Normal >59 [facility] Comment on above: Result Comment: Reported eGFR is based on the CKD-EPI 2020 equation that does not use a race coefficient. Performed By: #### C OVFLR #### [facility] ([id number]) [address] [place] [address] 04844 Glucose [Mass/Vol] 134 mg/dL High 65-99 [facility] Comment on above: Performed By: #### C OVFLR #### [facility] ([id number]) [address] [place] [address] 69260 Potassium [Moles/Vol] 3.8 mmol/L Normal 3.5-5.0 [facility] Comment on above: Result Comment: SPEC IMEN HEMOLYZED, RESULTS INCREASED Performed By: #### C OVFLR #### [facility] ([id number]) [address] [place] [address] 48085 Protein [Mass/Vol] 5.9 g/dL Low 6.0-8.0 [facility] Comment on above: Performed By: #### C OVFLR #### [facility] ([id number]) [address] [place] [address] 04074 Sodium [Moles/Vol] 135 mmol/L Normal 134-146 [facility] Comment on above: Performed By: #### C OVFLR #### [facility] ([id number]) [address] [place] [address] 20435 Urea nitrogen [Mass/Vol] 16 mg/dL Normal 5-27 [facility] Comment on above: Performed By: #### C OVFLR #### [facility] ([id number]) [address] [place] [address] 96399 Glucose Glucometer (BldC) [M ass/Vol]on 04-26-2024 Glucose [Mass/Vol] 118 mg/dL High 65-99 [facility] Glucose [Mass/Vol] 367 mg/dL High 65-99 [facility] BEDSIDE GLUCOSE LAB >500 Critically high 65-99 [facility] Comment on above: Result Comment: SEE LAB RESULTS FOR CONFIRMATION Glucose [Mass/Vol] 230 mg/dL High 65-99 [facility] Glucose [Mass/Vol] 106 mg/dL High 65-99 [facility] LIPASEon 04-26-2024 Lipase [Catalytic activity/Vol] 100 U/L High 17-40 [facility] Comment on above: Performed By: #### C OVFLR #### [facility] ([id number]) [address] [place] [address] 66560 Lactate (P dannie) [Moles/Vol]o n 04-26-2024 LACTATE W/REFLEX 1.7 mmol/L Normal 0.4-2.0 [facility] Comment on above: Result Comment: Result did not trigger repeat Lactate, re-order if needed. Performed By: #### 3 2133-1 ####[facility] ([id number])[address] [place] [address] 80669 MAGNESIUMon 04-26-2024 Magnesium [Mass/Vol] 1.9 mg/dL Normal 1.8-2.[address] [facility] Comment on above: Result Comment: SPEC IMEN HEMOLYZED, RESULTS INCREASED Performed By: #### C OVFLR #### [facility] ([id number]) [address] [place] [address] 50733 Troponin I.cardiac High sens itivity method [Mass/Vol]on 04-26-2024 1 HOUR TROP I, HIGH SENSITIVITY 10 ng/L Normal <16 [facility] Comment on above: Performed By: #### C OVFLR #### [facility] ([id number]) [address] [place] [address] 46302 TROPONIN I, HIGH SENSITIVITY 9 ng/L Normal <16 [facility] Comment on above: Performed By: #### C OVFLR #### [facility] ([id number]) [address] [place] [address] 89117 ACUTE HEPATITIS PANELon ANTI HCV W/PCR REFLX Non-Reactive Normal NRCT [facility] Comment on above: Result Comment: If recent infection suspected, recommend repeat testing (>2 months). Hwykrx-ib-lfbhae ratio is <0.80. Performed By: #### C BCA, 25188-4, BMP, 86564-0, 10674-4 #### [facility] ([id number]) [address] [place] [address] 91269 HEPATITIS A IGM Non-Reactive Normal NRCT [facility] Comment on above: Performed By: #### C BCA, 96033-9, BMP, 64955-2, 78943-6 #### [facility] ([id number]) [address] [place] [address] 74394 HEPATITIS B CORE IGM Negative Normal NEG [facility] Comment on above: Performed By: #### C BCA, 41079-6, BMP, 09584-1, 30354-7 #### [facility] ([id number]) [address] [place] [address] 28404 HEPATITIS B SURF AG Negative Normal [facility]G [facility] Comment on above: Performed By: #### C BCA, 67873-1, BMP, 16604-6, 44209-4 #### [facility] ([id number]) [address] [place] [address] 40706 CBC AND AUTO DIFFon 04-25-20 24 ABSOLUTE BASOPHIL 0.1 X10E9/L Normal 0.0-0.2 [facility] Comment on above: Performed By: #### Neymar PATEL, 75704-5, BMP, 35743-3, 88517-6 #### [facility] ([id number]) [address] [place] [address] 06427 ABSOLUTE NEUTROPHIL 12.8 X10E9/L High 1.5-6.6 [facility] Comment on above: Performed By: #### Neymar PATEL, 34193-9, BMP, 44084-8, 65327-7 #### [facility] ([id number]) [address] [place] [address] 55142 Basophils/100 WBC (Bld) 0.7 % Normal [facility] Comment on above: Performed By: #### Neymar PATEL, 48545-1, BMP, 95428-7, 28085-8 #### [facility] ([id number]) [address] [place] [address] 64780 Eosinophils (Bld) [#/Vol] 0.2 10*3/uL Normal 0.0-0.4 [facility] Comment on above: Performed By: #### Neymar PATEL, 42372-3, BMP, 94154-8, 81343-2 #### [facility] ([id number]) [address] [place] [address] 70745 Eosinophils/100 WBC (Bld) 1.3 % Normal [facility] Comment on above: Performed By: #### Neymar PATEL, 12744-9, BMP, 45553-2, 67848-5 #### [facility] ([id number]) [address] [place] [address] 42520 Erythrocyte distribution width (RBC) [Ratio] 14.9 % Normal 11.5-15.0 [facility] Comment on above: Performed By: #### Neymar PATEL, 41149-2, BMP, 79976-0, 96652-9 #### [facility] ([id number]) [address] [place] [address] 01653 Hematocrit (Bld) [Volume fraction] 45.4 % Normal 35-47 [facility] Comment on above: Performed By: #### Neymar PATEL, 42751-3, BMP, 69092-3, 54889-0 #### [facility] ([id number]) [address] [place] [address] 99209 Hemoglobin (Bld) [Mass/Vol] 15.7 g/dL High 11.7-15.5 [facility] Comment on above: Performed By: #### Neymar PATEL, 68190-8, BMP, 65213-2, 77247-5 #### [facility] ([id number]) [address] [place] [address] 69117 Lymphocytes (Bld) [#/Vol] 0.9 10*3/uL Low 1.0-3.5 [facility] Comment on above: Performed By: #### Neymar PATEL, 93291-4, BMP, 82329-8, 31271-0 #### [facility] ([id number]) [address] [place] [address] 32470 Lymphocytes/100 WBC (Bld) 6.2 % Normal [facility] Comment on above: Performed By: #### Neymar PATEL, 96108-9, BMP, 40163-6, 21286-1 #### [facility] ([id number]) [address] [place] [address] 74448 MCH (RBC) [Entitic mass] 30.8 pg Normal 27-34 [facility] Comment on above: Performed By: #### Neymar PATEL, 43656-5, BMP, 61673-2, 06412-1 #### [facility] ([id number]) [address] [place] [address] 37750 MCHC (RBC) [Mass/Vol] 34.6 g/dL Normal 32-36 [facility] Comment on above: Performed By: #### Neymar PATEL, 85476-4, BMP, 67363-0, 05727-6 #### [facility] ([id number]) [address] [place] [address] 01122 MCV (RBC) [Entitic vol] 89 fL Normal 80-100 [facility] Comment on above: Performed By: #### Neymar PATEL, 61690-1, BMP, 22081-1, 88413-9 #### [facility] ([id number]) [address] [place] [address] 04367 Monocytes (Bld) [#/Vol] 0.6 10*3/uL Normal 0-0.9 [facility] Comment on above: Performed By: #### Neymar PATEL, 72484-0, BMP, 17667-9, 96532-4 #### [facility] ([id number]) [address] [place] [address] 12664 Monocytes/100 WBC (Bld) 4.3 % Normal [facility] Comment on above: Performed By: #### Neymar PATEL, 77296-1, BMP, 91329-9, 96506-1 #### [facility] ([id number]) [address] [place] [address] 08122 Neutrophils/100 WBC (Bld) 87.5 % Normal [facility] Comment on above: Performed By: #### Neymar PATEL, 75686-1, BMP, 36002-1, 03419-6 #### [facility] ([id number]) [address] [place] [address] 21293 Platelet mean volume (Bld) [Entitic vol] 7.8 fL Normal 7-12 [facility] Comment on above: Performed By: #### C BCA, 15279-0, BMP, 84106-9, 47133-8 #### [facility] ([id number]) [address] [place] [address] 05009 Platelets (Bld) [#/Vol] 203 10*3/uL Normal 150-450 [facility] Comment on above: Performed By: #### Neymar BCA, 94493-6, BMP, 60349-9, 67800-2 #### [facility] ([id number]) [address] [place] [address] 82498 RBC COUNT 5.11 X10E12/L Normal 3.80-5.20 [facility] Comment on above: Performed By: #### Neymar BCA, 89801-2, BMP, 36287-5, 81720-7 #### [facility] ([id number]) [address] [place] [address] 49265 WBC (Bld) [#/Vol] 14.7 10*3/uL High 4.0-11.0 [facility] Comment on above: Performed By: #### Neymar BCA, 86154-2, BMP, 13887-6, 62263-1 #### [facility] ([id number]) [address] [place] [address] 15459 COMPREHENSIVE METABOLIC PANE Kemal 04-25-2024 Albumin [Mass/Vol] 3.6 g/dL Normal 3.2-5.3 [facility] Comment on above: Performed By: #### Neymar BCA, 63503-2, BMP, 55903-7, 89683-9 #### [facility] ([id number]) [address] [place] [address] 48139 ALP [Catalytic activity/Vol] 56 U/L Normal 39-130 [facility] Comment on above: Performed By: #### Neymar BCA, 51606-4, BMP, 64568-5, 61518-1 #### [facility] ([id number]) [address] [place] [address] 07509 ALT [Catalytic activity/Vol] 62 U/L High 0-31 [facility] Comment on above: Performed By: #### C BCA, 28487-9, BMP, 26046-9, 51400-7 #### [facility] ([id number]) [address] [place] [address] 65603 Anion gap [Moles/Vol] 8 mmol/L Normal 5-15 [facility] Comment on above: Performed By: #### C BCA, 30842-2, BMP, 39866-9, 86576-0 #### [facility] ([id number]) [address] [place] [address] 39107 AST [Catalytic activity/Vol] 38 U/L Normal 0-41 [facility] Comment on above: Performed By: #### Neymar BCA, 59489-3, BMP, 25108-3, 36333-8 #### [facility] ([id number]) [address] [place] [address] 12771 Bilirubin [Mass/Vol] 0.5 mg/dL Normal 0.3-1.[address] [facility] Comment on above: Performed By: #### Neymar BCA, 67373-6, BMP, 48759-3, 23045-6 #### [facility] ([id number]) [address] [place] [address] 66967 Calcium [Mass/Vol] 6.5 mg/dL Critically low 8.5-10.5 [facility] Comment on above: Performed By: #### C BCA, 90737-4, BMP, 37836-2, 35938-2 #### [facility] ([id number]) [address] [place] [address] 91631 Chloride [Moles/Vol] 102 mmol/L Normal 98-[address] [facility] Comment on above: Performed By: #### Neymar BCA, 41945-3, BMP, 10834-5, 55722-2 #### [facility] ([id number]) [address] [place] [address] 20084 CO2 [Moles/Vol] 29 mmol/L Normal 22-32 [facility] Comment on above: Performed By: #### C BCA, 77020-7, BMP, 52276-3, 16502-3 #### [facility] ([id number]) [address] [place] [address] 88705 Creatinine [Mass/Vol] 1.05 mg/dL High 0.40-1.00 [facility] Comment on above: Result Comment: METH OD TRACEABLE TO IDMS STANDARD Performed By: #### C BCA, 25241-1, BMP, 57643-8, 71615-3 #### [facility] ([id number]) [address] [place] [address] 51909 GFR/1.73 sq M.predicted among non-blacks MDRD (S/P/Bld) [Vol rate/Area] 57 mL/min/{1.73_m2} Low >59 [facility] Comment on above: Result Comment: Reported eGFR is based on the CKD-EPI 2020 equation that does not use a race coefficient. Performed By: #### C BCA, 08503-9, BMP, 85399-5, 60645-6 #### [facility] ([id number]) [address] [place] [address] 56243 Glucose [Mass/Vol] 147 mg/dL High 65-99 [facility] Comment on above: Performed By: #### C BCA, 71922-9, BMP, 19884-1, 28488-5 #### [facility] ([id number]) [address] [place] [address] 57000 Potassium [Moles/Vol] 3.3 mmol/L Low 3.5-5.0 [facility] Comment on above: Performed By: #### C BCA, 54746-1, BMP, 27098-5, 66748-6 #### [facility] ([id number]) [address] [place] [address] Protein [Mass/Vol] 6.6 g/dL Normal 6.0-8.0 [facility] Comment on above: Performed By: #### C BCA, 96802-7, BMP, 45878-0, 53176-1 #### [facility] ([id number]) [address] [place] [address] 48516 Sodium [Moles/Vol] 139 mmol/L Normal 134-146 [facility] Comment on above: Performed By: #### C BCA, 49852-2, BMP, 58585-7, 80443-6 #### [facility] ([id number]) [address] [place] [address] 92946 Urea nitrogen [Mass/Vol] 22 mg/dL Normal 5-27 [facility] Comment on above: Performed By: #### C BCA, 46617-3, BMP, 74187-9, 07977-2 #### [facility] ([id number]) [address] [place] [address] CTA ABD AND PELVISon CT CTA ABD AND PELVIS CT CTA ABD AND PELVIS CLINICAL INFORMATION: , Epigastric pain; chest pain, r/o aortic abnormality TECHNIQUE: CT angiography of the abdomen and pelvis with intravenous contrast. MIP and/or 3D reformats were generated on a separate workstation under concurrent physician supervision and reviewed to further define anatomy and possible pathology. Automated exposure control was utilized. All CT scans at this facility use dose modulation, iterative reconstruction, and/or weight based dosing when appropriate to reduce radiation dose to as low as reasonably achievable. COMPARISON: No relevant prior studies available. FINDINGS: CT chest performed concurrently, but reported separately. Normal hepatic morphology. No focal intrahepatic lesions. Gallbladder present. No biliary dilatation or portal venous gas. The pancreas is unremarkable. Pancreatic divisum is noted with prominent pancreatic duct, but not dilated by measurement criteria. Spleen is normal in size. The adrenal glands and kidneys are unremarkable. Urinary bladder is within normal limits. Uterus and ovaries are not identified. 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 Proximal radiograph there is eccentric predominantly calcified atherosclerotic disease as before resulting in approximately 50% luminal narrowing. The origins of the celiac and superior mesenteric arteries are patent. There is mild to moderate stenosis of the superior mesenteric artery origin. Renal arteries are patent. IVC is right-sided. No enlarged abdominal or pelvic lymph nodes. No bowel dilatation. Colonic diverticulosis. No free air or free fluid. No peritoneal nodularity. The osseous structures are age compatible. No aggressive osseous lesions or acute osseous abnormalities are identified. 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 Finalized by Kenny Chapman MD on 04/25/2024 10:10 AM Normal [facility] CT CTA CHESTon 04-25-[address] CTA CHEST STUDY: CT angiography of the chest with contrast CLINICAL HISTORY: Chest pain, shortness of breath. COMPARISON: PET/CT 02/12/2024. TECHNIQUE: CT angiography of the chest was performed utilizing thin section axial images with coronal and sagittal reformatted images generated. 3-D maximum intensity projection coronal and sagittal reformatted images generated and reviewed. Images acquired following the uneventful administration of 100 cc Omnipaque 350 nonionic intravenous contrast. Automated exposure control was utilized. FINDINGS: Mild cardiomegaly. Severe calcified coronary arterial disease. No acute aortic pathology. Moderate atherosclerotic disease of the aorta, irregular plaque within the descending thoracic aorta [series 5 image #72].. Asymmetric atherosclerosis left carotid bifurcation. Suboptimal pulmonary arterial opacification, no central pulmonary embolus. Moderate to severe emphysema. Confluent opacity within the lingula, circumscribed 1.4 cm observation in this general vicinity, site of abnormality on recent PET. Mild central bronchial wall thickening, which may be seen in the setting of airway infection/inflammati on. No acute findings at the thoracic inlet. Left shoulder arthroplasty, associated streak artifact. No acute findings body wall. Abdomen dictated separately. No aggressive osseous lesions. IMPRESSION: Irregular descending thoracic plaque, likely sequelae of age-indeterminate, likely nonacute, ruptured plaque. No definite acute thoracic aortic pathology. Apparent asymmetric atherosclerotic disease left carotid bifurcation, consider correlation with neck vascular studies. Nodular abnormality within the lingula, 1.4 cm, site of prior FDG avid nodule; finding may relate to posttreatment appearance, correlate with patient history. All CT scans at this facility use dose modulation, iterative reconstruction, and/or weight based dosing when appropriate to reduce radiation dose to as low as reasonably achievable. Finalized by Brett Gaytan MD on 04/25/2024 9:54 AM Normal [facility] Glucose Glucometer (BldC) [M ass/Vol]on 04-25-2024 Glucose [Mass/Vol] 162 mg/dL High 65-99 [facility] LIPASEon 04-25-2024 Lipase [Catalytic activity/Vol] 54 U/L High 17-40 [facility] Comment on above: Performed By: #### C JORGE, 10182-9, BMP, 09215-4, 12116-5 #### [facility] ([id number]) [address] [place] [address] 81270 MAGNESIUMon 04-25-2024 Magnesium [Mass/Vol] 1.9 mg/dL Normal 1.8-2.[address] [facility] Comment on above: Performed By: #### Neymar PATEL, 05646-4, BMP, 01340-9, 98933-2 #### [facility] ([id number]) [address] [place] [address] 31901 Natriuretic peptide B [Mass/ Vol]on 04-25-2024 Natriuretic peptide B (Bld) [Mass/Vol] 47 pg/mL Normal <100.0 [facility] Comment on above: Performed By: #### Neymar PAETL, 18048-1, BMP, 03512-5, 13180-1 #### [facility] ([id number]) [address] [place] [address] 34587 PROTIME AND INRon 04-25-2024 INR Coag (PPP) [Relative time] 1.0 {INR} Normal 0.8-1.1 [facility] Comment on above: Performed By: #### Neymar PATEL, 86392-8, BMP, 25585-8, 24588-3 #### [facility] ([id number]) [address] [place] [address] 84964 PT Coag (PPP) [Time] 11.9 s Normal 9.8-13.[address] [facility] Comment on above: Result Comment: NEW REFERENCE RANGE Performed By: #### C JORGE, 70081-3, BMP, 57614-4, 04582-7 #### [facility] ([id number]) [address] [place] [address] 24220 Procalcitonin IA [Mass/Vol]o n 04-25-2024 PROCALCITONIN 0.08 ng/mL High <0.05 [facility] Comment on above: Result Comment: NOTE <0.50 ng/mL - Low risk of severe sepsis and/or septic shock. <2.00 ng/mL - Recommend retesting within 6-24 hours. >2.00 ng/mL - High risk of sepsis and/or septic shock. Performed By: #### C JORGE, 00475-1, BMP, 70003-2, 51683-8 #### [facility] ([id number]) [address] [place] [address] 36721 Troponin I.cardiac High sens itivity method [Mass/Vol]on 04-25-2024 1 HOUR TROP I, HIGH SENSITIVITY 10 ng/L Normal <16 [facility] Comment on above: Performed By: #### C OVFLR #### [facility] ([id number]) [address] [place] [address] 18043 TROPONIN I, HIGH SENSITIVITY 11 ng/L Normal <16 [facility] Comment on above: Performed By: #### C JORGE, 87073-9, BMP, 04547-0, 98121-1 #### [facility] ([id number]) [address] [place] [address] 27280 Vitamin D+Metabolites [Mass/ Vol]on 04-25-2024 VITAMIN D 25 HYD TOT 23.3 ng/mL Low 30-[address] [facility] Comment on above: Result Comment: Vitamin D status 25 OH Vitamin D Deficiency <20 ng/mL Insufficiency 20-29 ng/mL Sufficiency 30-100 ng/mL Toxicity >100 ng/mL NOTE: A pediatric reference range has not been established by the electrical tech of this kit. The [place] [employer] recommends a Vitamin D level of = or >20ng/mL in infants and children. Performed By: #### C BCA, 68112-5, BMP, 68095-3, 16611-8 #### [facility] ([id number]) [address] [place] [address] 97742 aPTT Coag (PPP) [Time]on aPTT Coag (Bld) [Time] 26 s Normal 26-37 [facility] Comment on above: Result Comment: NEW REFERENCE RANGE Performed By: #### C BCA, 77434-9, [facility], 16934-0, 52782-6 #### [facility] ([id number]) [address] [place] [address] 92734 Outside Recordson 04-21-2024 Outside Records [id number] #1.00OTGTIFF [facility] Outside Records [id number] [facility] [place] SWALLOW MOTILITY FUNCTION on 04-20-2024 FL SWALLOW MOTILITY FUNCTION FL SWALLOW MOTILITY FUNCTION Indication: Oropharyngeal dysphasia. Coughing. TECHNIQUE: Fluoroscopic imaging is performed from lateral projection during patient's ingestion of multiple consistencies of liquids and solids. Comparison is made to prior exam dated 07/24/2021. Reference air kerma 1.7 milligray. FINDINGS: Patient did well with thick consistency by spoon, cup, and straw. Patient did well with pudding consistency. There was early spillover center portions of fruit consistency with some delay in the swallow. Mild residual noted within vallecula cracker consistency which cleared with spontaneous second swallow. No significant penetration or aspiration identified. IMPRESSION: 1. No significant penetration or aspiration identified. Please also see speech pathologist full report and dietary recommendation. Finalized by Sanaz Granger MD on 04/20/2024 3:12 PM Normal [facility] CBC AND AUTO DIFFon 04-18-20 ABSOLUTE BASOPHIL 0.1 X10E9/L Normal 0.0-0.2 [facility] Comment on above: Performed By: #### C BCA, 23235-3, BMP, 24944-5, 62527-7 #### [facility] ([id number]) [address] [place] [address] 12907 ABSOLUTE NEUTROPHIL 7.4 X10E9/L High 1.5-6.[address] [facility] Comment on above: Performed By: #### Neymar BCA, 80505-5, BMP, 67533-7, 71177-9 #### [facility] ([id number]) [address] [place] [address] 19356 Basophils/100 WBC (Bld) 0.7 % Normal [facility] Comment on above: Performed By: #### C BCA, 50282-8, BMP, 47671-3, 66180-2 #### [facility] ([id number]) [address] [place] [address] 57182 Eosinophils (Bld) [#/Vol] 0.0 10*3/uL Normal 0.0-0.4 [facility] Comment on above: Performed By: #### C BCA, 08033-6, BMP, 20403-1, 16157-3 #### [facility] ([id number]) [address] [place] [address] 23382 Eosinophils/100 WBC (Bld) 0.1 % Normal [facility] Comment on above: Performed By: #### Neymar BCA, 22345-7, BMP, 97287-8, 76076-4 #### [facility] ([id number]) [address] [place] [address] 86916 Erythrocyte distribution width (RBC) [Ratio] 14.9 % Normal 11.5-15.0 [facility] Comment on above: Performed By: #### Neymar PATEL, 82459-4, BMP, 63379-4, 01971-3 #### [facility] ([id number]) [address] [place] [address] 13642 Hematocrit (Bld) [Volume fraction] 40.3 % Normal 35-47 [facility] Comment on above: Performed By: #### Neymar PATEL, 66732-8, BMP, 81127-5, 13304-9 #### [facility] ([id number]) [address] [place] [address] 92072 Hemoglobin (Bld) [Mass/Vol] 13.5 g/dL Normal 11.7-15.5 [facility] Comment on above: Performed By: #### Neymar PATEL, 97097-3, BMP, 10193-3, 69968-6 #### [facility] ([id number]) [address] [place] [address] 16572 Lymphocytes (Bld) [#/Vol] 0.6 10*3/uL Low 1.0-3.5 [facility] Comment on above: Performed By: #### Neymar PATEL, 40377-9, BMP, 76160-4, 99569-1 #### [facility] ([id number]) [address] [place] [address] 52671 Lymphocytes/100 WBC (Bld) 6.9 % Normal [facility] Comment on above: Performed By: #### Neymar PATEL, 25493-3, BMP, 79868-8, 56947-6 #### [facility] ([id number]) [address] [place] [address] 29017 MCH (RBC) [Entitic mass] 30.5 pg Normal 27-34 [facility] Comment on above: Performed By: #### Neymar BCA, 78816-7, BMP, 94210-0, 33654-9 #### [facility] ([id number]) [address] [place] [address] 85769 MCHC (RBC) [Mass/Vol] 33.6 g/dL Normal 32-36 [facility] Comment on above: Performed By: #### Neymar BCA, 59287-2, BMP, 01011-7, 24118-2 #### [facility] ([id number]) [address] [place] [address] 03897 MCV (RBC) [Entitic vol] 91 fL Normal 80-100 [facility] Comment on above: Performed By: #### Neymar PATEL, 50828-0, BMP, 22488-9, 74600-5 #### [facility] ([id number]) [address] [place] [address] 31064 Monocytes (Bld) [#/Vol] 0.1 10*3/uL Normal 0-0.9 [facility] Comment on above: Performed By: #### Neymar PATEL, 81530-4, BMP, 79263-3, 28367-4 #### [facility] ([id number]) [address] [place] [address] 04255 Monocytes/100 WBC (Bld) 1.6 % Normal [facility] Comment on above: Performed By: #### Neymar BCA, 07697-3, BMP, 91867-3, 68969-1 #### [facility] ([id number]) [address] [place] [address] 47500 Neutrophils/100 WBC (Bld) 90.7 % Normal [facility] Comment on above: Performed By: #### Neymar BCA, 14709-9, BMP, 14145-4, 28666-7 #### [facility] ([id number]) [address] [place] [address] 57405 Platelet mean volume (Bld) [Entitic vol] 8.2 fL Normal 7-12 [facility] Comment on above: Performed By: #### Neymar PATEL, 82141-1, BMP, 08274-9, 72775-7 #### [facility] ([id number]) [address] [place] [address] 35381 Platelets (Bld) [#/Vol] 220 10*3/uL Normal 150-450 [facility] Comment on above: Performed By: #### Neymar PATEL, 71026-5, BMP, 05011-4, 06044-4 #### [facility] ([id number]) [address] [place] [address] 17870 RBC COUNT 4.44 X10E12/L Normal 3.80-5.20 [facility] Comment on above: Performed By: #### Neymar PATEL, 83184-1, BMP, 72399-8, 99887-4 #### [facility] ([id number]) [address] [place] [address] 54976 WBC (Bld) [#/Vol] 8.1 10*3/uL Normal 4.0-11.0 [facility] Comment on above: Performed By: #### Neymar PATEL, 30367-4, BMP, 77325-1, 17550-6 #### [facility] ([id number]) [address] [place] [address] 04767 COMPREHENSIVE METABOLIC PANE [facility] 04-18-2024 Albumin [Mass/Vol] 3.9 g/dL Normal 3.2-5.3 [facility] Comment on above: Performed By: #### Neymar PATEL, 27204-2, BMP, 96952-8, 89277-4 #### [facility] ([id number]) [address] [place] [address] 80841 ALP [Catalytic activity/Vol] 68 U/L Normal 39-130 [facility] Comment on above: Performed By: #### C BCA, 49752-0, BMP, 86753-0, 78456-9 #### [facility] ([id number]) [address] [place] [address] 93683 ALT [Catalytic activity/Vol] 31 U/L Normal 0-31 [facility] Comment on above: Performed By: #### Neymar BCA, 26578-4, BMP, 94329-8, 18962-0 #### [facility] ([id number]) [address] [place] [address] 91121 Anion gap [Moles/Vol] 11 mmol/L Normal 5-15 [facility] Comment on above: Performed By: #### Neymar BCA, 03175-9, BMP, 10157-5, 65375-5 #### [facility] ([id number]) [address] [place] [address] 04789 AST [Catalytic activity/Vol] 25 U/L Normal 0-41 [facility] Comment on above: Performed By: #### C BCA, 91387-9, BMP, 92700-4, 51797-7 #### [facility] ([id number]) [address] [place] [address] 89024 Bilirubin [Mass/Vol] 0.7 mg/dL Normal 0.3-1.[address] [facility] Comment on above: Performed By: #### Neymar BCA, 06881-6, BMP, 32942-8, 73137-4 #### [facility] ([id number]) [address] [place] [address] 68586 Calcium [Mass/Vol] 7.0 mg/dL Low 8.5-10.5 [facility] Comment on above: Performed By: #### C BCA, 29756-3, BMP, 07426-1, 53044-2 #### [facility] ([id number]) [address] [place] [address] 61118 Chloride [Moles/Vol] 98 mmol/L Normal 98-[address] [facility] Comment on above: Performed By: #### C BCA, 97878-5, BMP, 78770-6, 60820-9 #### [facility] ([id number]) [address] [place] [address] 52728 CO2 [Moles/Vol] 24 mmol/L Normal 22-32 [facility] Comment on above: Performed By: #### C BCA, 24564-7, BMP, 27752-1, 74434-4 #### [facility] ([id number]) [address] [place] [address] 79419 Creatinine [Mass/Vol] 1.03 mg/dL High 0.40-1.00 [facility] Comment on above: Result Comment: METH OD TRACEABLE TO IDMS STANDARD Performed By: #### C JORGE, 98736-7, BMP, 11016-7, 11877-3 #### [facility] ([id number]) [address] [place] [address]1644 GFR/1.73 sq M.predicted among non-blacks MDRD (S/P/Bld) [Vol rate/Area] 58 mL/min/{1.73_m2} Low >59 [facility] Comment on above: Result Comment: Reported eGFR is based on the CKD-EPI 2020 equation that does not use a race coefficient. Performed By: #### C BCA, 99045-5, BMP, 03000-9, 70939-5 #### [facility] ([id number]) [address] [place] [address]709 Glucose [Mass/Vol] 391 mg/dL High 65-99 [facility] Comment on above: Performed By: #### C BCA, 11136-7, BMP, 96664-1, 85965-8 #### [facility] ([id number]) [address] [place] [address] 99518 Potassium [Moles/Vol] 3.8 mmol/L Normal 3.5-5.0 [facility] Comment on above: Performed By: #### C BCA, 62970-8, BMP, 38276-9, 96238-7 #### [facility] ([id number]) [address] [place] [address] 79805 Protein [Mass/Vol] 6.9 g/dL Normal 6.0-8.0 [facility] Comment on above: Performed By: #### C BCA, 37440-6, BMP, 98722-3, 58119-1 #### [facility] ([id number]) [address] [place] [address] 89671 Sodium [Moles/Vol] 133 mmol/L Low 134-146 [facility] Comment on above: Performed By: #### C BCA, 98199-7, BMP, 44081-6, 82428-9 #### [facility] ([id number]) [address] [place] [address] 21679 Urea nitrogen [Mass/Vol] 26 mg/dL Normal 5-27 [facility] Comment on above: Performed By: #### C BCA, 13678-7, BMP, 91945-0, 19283-7 #### [facility] ([id number]) [address] [place] [address] 97885 Fibrin D-dimer DDU (PPP) [Ma ss/Vol]on 04-18-2024 D DIMER 179 ng/mL DDU Normal <255 [facility] Comment on above: Result Comment: Results <255 ng/mL DDU: The presence of a VTE can safely be excluded with a negative D-Dimer result and Wells score. A negative result doesn't exclude the possibility of DIC. The test be repeated along with other diagnostic tests if the patient's symptoms persist or worsen. [email or web address] Performed By: #### C BCA, 34381-3, BMP, 04456-0, 52473-2 #### [facility] ([id number]) [address] [place] [address] 04028 MAGNESIUMon 04-18-2024 Magnesium [Mass/Vol] 1.9 mg/dL Normal 1.8-2.[address] [facility] Comment on above: Performed By: #### Neymar PATEL, 53735-0, BMP, 24349-7, 46901-3 #### [facility] ([id number]) [address] [place] [address] 08756 Troponin I.cardiac High sens itivity method [Mass/Vol]on 04-18-2024 1 HOUR TROP I, HIGH SENSITIVITY 9 ng/L Normal <16 [facility] Comment on above: Performed By: #### Neymar PATEL, 14822-4, BMP, 74568-1, 89224-0 #### [facility] ([id number]) [address] [place] [address] 01898 TROPONIN I, HIGH SENSITIVITY 8 ng/L Normal <16 [facility] Comment on above: Performed By: #### Neymar PATEL, 33594-3, BMP, 15371-1, 66508-0 #### [facility] ([id number]) [address] [place] [address] 23252 Consultation/Specialist Note on 03-31-2024 Consultation/Specialist Note [id number]#1.00[facility] Coding Summaryon 03-30-2024 Coding Summary HTMLBase 64 GtbitisrIYh0dAm+PGhl YWQ+AQ3LXYKtI55vbKIv oQ5uF1DITLrXTzggIQPL QToVHjMvzhMjDU9qbIVl ZXJu IC8+AB6eHVLyOgiflGQs w8B8fID7O98xwl1xOAxc aSV9XKGoVsJzhaxgh5cg tNt3XTvfXuqnEiOk ZSCpdK91GZN4pC87Vn12 dLAfrYNbi3pkhMt9TyUp YUStYJU6eLsiHHrzw1Pk WQVvW60mcLCkl9O7 IGNvbGxhcHNlOyBlbXB0 wU9tZFbqvqgye0cwmstq Ccz4sz46jCPri4M8rOF7 C5BmgpC0FMSriRPj VemtrKEKkW6quxexg4eo dgjgOaVgYJXbHVe1CFz3 VEFfxZrwNyHwKR35UBK8 JHGwkoDzT4FlWBEo eSziBsQ9f5K1Vh5ZK2ZL LhfiL1SGCGUTTKcvcOZ+ MK96mh24Y2JiArbeMhn0 GCLmQIB7lOZ9pV8l VEIlGTwcm3Y2sAG6O6Re utBxsz3jc5lgEIZjREhi Z53arVIcm7H7SXWduRX6 BBKuaVseGvDgkL78 Oyc+SRUrsZckv0IlLyti l1gda1truWe1PfadWCXl lwSecPyiZMF3u9WvNx0s OMLprXX4vUH4rM4u VdZuPlN0XVcyL684PwDc bJYnGbouM82pY3XpkFH+ WQIeJbm9UWIurQqdVX1m T5DzZBVchyksrYQn cYevXP3jYWHpugxmCVZo gD7uNMPqK0k5ReQbYkG1 PQliP8BqLIIlcuniEs70 gE5wVcUhDpA3QXgc B4McshA6INWgtYMaJGjg OEQ9R96kh4E4YAAiTXCp WGF8cZE9sN6jtZrqwbvg bGVmdDsgdmVydGlj ETaxYAnfS509XBBidUrh PkNvZGluZyBEYXRlOiAg MDYvMDUvMjAyNDwvdGQ+ UGGnOVB9yQodDHFa vXKrUEnaZe3yoXrtoXcg WJ6gMYGydqbpGJFscG1i DVBjjAHnyRaeXS6nUVPc bcgob267SdXwOPN0 VHHkwNKjW0HzkP9eTeFk VTFpUSZwO4WnzJMqEVjg R727OAsdAzO3AEXwotJp B5YdAMXitGxyRiM4 v5A1Jo5Dd4AnoejsN9Hy oNHoJqTxZeqqGSy8J8Ot PjwvdHI+DC23BSCdRF83 FWu0WOK2xCgjOIhr TDCaN4UjmI5qDyHvCDNr ZGRkOyc+PHRhYmxlIHdp ZHRoPScxMDAlJyBzdHls RP8zZw2cGLCpIJLu wFyigCYdStEtc3cqJFZp ZCgtVH8kuLuxE2VjvGK3 YCTxn2k7Tv96O94eO0Hd dXA+KKRlxFT9vVB6 eW8kLtHkWlC5VZihE023 KbMlhZVsFuplb1upr6mg wIx4IqZ9BVBsjlDseLda OIA2q9RmDi06Z91m IHdpZHRoPSIxNSUiIHZh cNtpfo0paU3iSn8+PGNv gYB5zGW5pC2yLwBtIpK3 IOuaP375NcLgxQQv Eiofc0uqy1xipJd2IfSb NYSemaQdhRteHWK5e4Wa Ym22S2FarNxbq8FsGtm5 lc26wAPkz6K3qYU1 Q0LkOALbloftuWFpqMfg LG4qNHRueadxCUCarS0n IEEvC5c3DeExVtB2AYhf L5ApxyF7PHBdaRIe YGGztEPRsR8drhbqf7wi grfaIzWyFTMpHAy4DQl6 CJGswLduMyEiTLU9WvS2 HWL9uRSsyZ4wgOdm phbtbM6tOup+USB7cJJt uAZCKS2eDwbkkLC+PHRk QBQ3aRwrGEvzYBPtcN4p MKWxJ7t5QaPuPuR6 HLhwX9BqpkZ7BROdgSHs COVkaMIGyJ0jofluk5rs uvqmTgAxGLVwAXu7YMy9 LWFsaWduOiBsZWZ0 IeW8EVF6hUXmpY4nmFur qrevtX8wYlw+QmlydGgg QAT7TAb2H4PdHtp7LTAx dKgaXJ5yqMIuYNhz Yk5qkImufHjtMK5pVYNm xaqsp008YiWdo4oqILDz nZNbTJivETB1U60bg2E0 TAWqSJHwLAM7uJT2 wT7etYzvvfkpvKRwgNfn nzPirTjqWIhtPLoaT860 VODqoRpuOyVuZYn2E5Ei Mpy9SVVogYqwNQ5f nTZcPDwvBk3ymChcsCyz GZ9fOMUydhgia877CyKw x1qbIBSlvLQtXGimJQC6 S93fe9O8ZNIqZTPf DLW9cDG6lJ2veUlycdgm bGVmdDsgdmVydGljYWwt YXzsR389JPKszLllUcXg bCl5X6QbHtm6VBZo pBmmJI0uyVDmWRrmCs8f qZqboTahNU0xMPXeejkz h564YvAev4woCJDgbAXk JJofJDF3T05ts6N7 UNQxCHTqJWZ6aEI5iC9m bGlnbjogbGVmdDsgdmVy yCrgCAneIBzlQ819RMPq cDsnPlBhdGllbnQg YYnnEQu2H5NzXyylwYK+ XB28WLNtMV39iLAvnCDr a9royTu6ShRjSWJbDMV3 gJrsTGrra9YvNFIx V53mkGOua4A6RUJbxSuo vQMxAqSutZI7xD3eFKqs weqyg2etittgVofjk5qe hg22zP44R86fWQqm ZHRoPSIzMCUiIHZhbGln zw2bfA3hTd9+PGNvbCB3 mYJ1rN3mUPKqKdO5SWfb D211CsTrhRTpIklq i1njl8kthBj2GaZ1MQZz xtDprDioYKL7s9QnAc84 H41bNMhnNRCpSQTeONWb FDYnbYxrhl6jrF3a Ii8+DXHnpNS8fSP4tE2x LvWpSrJ1TZnoL925RhPr dRCnUvohU94dU0EvcHS+ VHGwLeq7CBImmGhe VS8deVPzQQtwSp3dVSY0 CuSaIpXbSItlO7DeTCKx wkruazdeoMC0PLHkVLVf kK65Rj0lbXeeACPv hDJZwW6cwctgt0zewknd IrVwOEOnPXq5IHa0TQTq qTmkLiMpQGB8BvI9ORE6 hDRkkG4mvAhvictl eH2pU4DdKGXxuszkOr62 jV3bOzVxMwG4BZrsVpy+ QL1IKCYIZDWWKuHVAVSh UzwvdGQ+PHRkIHN0 cObbICanLFEohM2eJTJc N9v7FyJmHoR3DQzxY4Lm VRNzhfxtHl19wL4lUjJu LoL1KTtgH4ZokaR3 GHGxbGThZLiaNRG0H46b u3W8SLThSBUhGYL7uNX2 aL4adBribdbieHMnjZyo dmVydGljYWwtYWxp H068VBHauCakGhPpTdYq TcE2LTY8E6NcLos3LNZf jGvoLD2esSApANdsSu3r cWxhnKftTJ1xSWDo ukmnYDCvgC1uIUSpsSRn eGegAQ6oEXMhhmbxm322 OkTgGQJ3VMCmdUEjY4Xk eS5sPpYyVRLwXTDa A1XduJTtEIahZ399XWrz StH5DGNzryIyR6BjLEPb pUuyIyB4p2W2Ud99BCAX ZWFyczwvdGQ+PHRk MXH2gLpiOYloIORdjZ3q YXJcP8l2BqIpYxT8WDim Y5YaXNRznlkhTj05zD4v WwNiHfP5EElvH1Cz ctI5ORIwtETaVQilPEU3 N68xw4B9ZVZxQKAxCPK9 lIP7wB2cgXhsjbzlzNMy dDsgdmVydGljYWwt NFjjT272VHFidExbCpUB TUFMRTwvdGQ+PHRkIHN0 hLhnZVviYGCcpE3kGBHz Y7o1LzTdSyF6HGhl N9BiODMjahhaRd16zP9y TiApMyI2BAxoP7AghpX0 QLIyaXVbQUswCRC0O32g h5S1DRTyZAPcSAG4 gHN8mS4oaTzfyscvbWIk dDsgdmVydGljYWwtYWxp I945NZDinUqeXg5CTG44 OM14G7MzKhhbrIDq bGU+PHRhYmxlIHdpZHRo HXgwLQYvFnPbcFwgYG8e Ma0mXHGrGDVbkBexzBNm NtQav3ojZKSiWRpl CZ4krUxrJ7BvdLD4TWMw a6i2Tn16T82oB6IowUN+ FHFyoLJ1kYI1mZ0uLrDh ItE2BCzfE962OdEp gEYdQzhoj6zvi2ymeNm5 IjMwJSIgdmFsaWduPSJ0 w9OgEj39F28hNPiySQKa PSIyMCUiIHZhbGln te5ooL1iHs6+PGNvbCB3 aJY3wI3qUtJrVqS3YKsz W159CiXqkCIiKzpsM45w X2IlxFY+PHRyPjx0 XUAraEttDC2znYRcNNin Xt5fZHM3AjMwHgXeFMyy T0GsQLEejiumsnzutVE7 SGXdEUZypD58Ss1l zLxyBy8pGEYgVOH9RARs tWXzW0EfxP6iTjLxKUZl SZLsO3JguLKoIXbhR764 KKrsIxD1JQAlleOl X5EpFYLsjJzxYhM6y0Y0 Lx7GsUnyeFTmGM4aDfYm PCh9Z6LwXnj4ZCVevTvr OX3xmOHwZCnxZq2d qPcqhHzgYO0hCZRnrezm o507UnJuu4cdPYFfpEHb DFjgQSO2F63dp9H6XQYa TORaISL8wPM0dW9g bGlnbjogbGVmdDsgdmVy jYteXZklBFxuO168ACVf kWfkIqEEWrj9Z3JmLoc2 BAPpkTwkIY0yjSDe WZvwVj9jaDvdhRyiJT1d NQXhkjbka211VaMbx9px YHGwuXLfNNvsGDW6C27w w9O9YGCxBQIoFRQ2 eQO9tV5yqYovptagnULn dDsgdmVydGljYWwtYWxp R177JXAukOmbTe0YDoc5 Q7GrSqs3AQEjuVtc CR0qsKMeLXzhBa9jcHli vLcvRF2lJLFsdnhzx253 HwAft9fyBLIwhTUsZEqb LBI1Z73bj8I6FERm QECgDYB4oDA7aU8dfLpc bjogbGVmdDsgdmVydGlj LInbDCwbI885ELNghApd PlBheWVyOjwvdGQ+ BL54tc31W5AkZvclUax0 SQElGZI5zZS6nP2rTLBj BVttp1I4hPS1A3XfesHu ez0as4caJEGmIHdp Y29 (more content not included)... [facility] Reminder Messageson 03-23-20 24 Reminder Messages - From: MIGUEL BROCK DO To: [facility] Clinical Pool ([facility]); Sent: 03/22/2024 16:38:55 EDT ! Show up: 03/22/2024 16:38:55 EDT Subject: Results Follow Up Actions: Call the patient with result(s) Due Date/Time: 03/23/2024 16:38:00 EDT Reminder Comments: birads 2 looks good repeat in 1 year Results: Date Result Type Result Name 03/22/2024 16:30 Radiology US Breast Left Complete. lvm with results and recommendations returned call to patient and reviewed results and recommendation with patient [Electronically Signed on: 03/24/2024 14:53 EDT] Erlinda Odom [facility] Reminder Messages - From: MIGUEL BROCK DO To: [facility] Clinical Pool ([facility]); Sent: 03/22/2024 16:36:57 EDT ! Show up: 03/22/2024 16:36:57 EDT Subject: Results Follow Up Actions: Call the patient with result(s) Due Date/Time: 03/23/2024 16:36:00 EDT Reminder Comments: looks good birads 2 recheck 1 year Results: Date Result Type Result Name 03/22/2024 16:30 Radiology US Breast Left Complete. lvm with results and recommendations [facility] Reminder Messages - From: MIGUEL BROCK DO To: [facility] Clinical Pool ([facility]); Sent: 03/22/2024 16:38:13 EDT ! Show up: 03/22/2024 16:38:13 EDT Subject: Results Follow Up Actions: Call the patient with result(s) Due Date/Time: 03/23/2024 16:37:00 EDT Reminder Comments: looks good birads 2 repeat in 1 year Results: Date Result Type Result Name 03/22/2024 16:25 Radiology [place] Mammo Diagnostic 3D Bilateral. LVM with results and recommendations Normal [facility] Mammo Diagnostic 3D Bilat eral.on 03-22-2024 [place] Mammo Diagnostic 3D Bilateral. MAMMOGRAM DIAGNOSTIC 3-D BILATERAL CLINICAL DATA: Left breast pain/lump. TECHNIQUE: Diagnostic digital mammogram study of both breasts was performed with 2-D and 3-D tomosynthesis imaging. Study was compared to the prior exam performed at an outside institution dated 06/13/2015. FINDINGS: Breast tissue is heterogeneously dense bilaterally. There is no evidence of interval dominant spiculated mass, grouped microcalcifications, or skin thickening which could be suggestive of malignancy. There is architectural distortion on the right compatible with postoperative and/or postradiation fibrosis which appears similar to the prior study. A postoperative clip is seen on the right similar to the prior study. Mildly scattered benign-appearing calcifications bilaterally. R2 image Compressed Gases Tester was utilized for this study. IMPRESSION: No specific evidence of malignancy seen in either breast. BIRADS: 2 - Benign, no evidence of malignancy. Normal interval followup is recommended in 12 months. OVERALL ASSESSMENT- BENIGN A letter of notification will be sent to the patient regarding the results. Assessment / Recommendation: 2-1 Normal interval follow-up Breast density: Heterogeneously Dense Recall interval: 012 months Final Dictated by: Titi Chi MD Dictated DT/TM: 03/22/24 3:28 Signed (Electronic Signature): Titi Chi MD 03/22/24 4:23 pm Technologist: EM Assessment: 2-Benign finding Recommendation: Normal interval follow-up Normal [facility] US Breast Left Complete.on 0 03-22-2024 US Breast Left Complete. EXAM: US Breast Left Complete. HISTORY: Unspecified lump in the left breast, lower inner quadrant COMPARISON: Diagnostic mammogram study of the breasts performed earlier today on 03/22/2024 TECHNIQUE: Complete left breast ultrasound study was performed to include all 4 quadrants and the subareolar region. FINDINGS: There is dense fibroglandular tissue noted throughout. No obvious solid or cystic mass. No obvious solid vascular mass to suggest neoplasm. No obvious abnormal calcifications or vascularity. In the area of clinically palpable lump superiorly there is no obvious focal abnormality. IMPRESSION: Unremarkable left breast ultrasound study as described. No convincing evidence of neoplasm. BI-RADS Category 2: Benign. Final Dictated by: Titi Chi MD Dictated DT/TM: 03/22/24 3:35 Signed (Electronic Signature): Titi Chi MD 03/22/24 4:28 pm Technologist: SMITHA DIEGO [facility] Outside Recordson 03-14-2024 Outside Records [id number] #1.[facility] - Other Lab [facility] Lab - Other Lab Results [id number] #[facility] CULTURE(CONCENTRATED)on 03-01-2024 Mycobacterium sp identified Org specific cx Nom (Unsp spec) SPECIMEN NOTES SPECIMEN 1 AFB SMEAR NO ACID FAST BACILLI (CONCENTRATED SMEAR) CULTURE RESULTS NO ACID FAST BACILLI ISOLATED IN 8 WEEKS Normal [facility] Comment on above: Performed By: #### 5 43-9 ####[facility] ([id number])[address], [place] [address] AND DIFFon 2023 BODY FLUID COMMENT Interpreta tion-------- Normal [facility] Comment on above: Result Comment: Refe rence values for this fluid type are undefined, as fluid accumulation is considered abnormal. Assorted lining cells present. Performed By: #### B FCT #### [facility] ([id number]) [address], [address] [place] [address] FLUID CLARITY CLEAR Normal [facility] Comment on above: Performed By: #### B FCT #### [facility] ([id number]) [address], [address] [place] [address] FLUID COLOR COLORLESS Normal [facility] Comment on above: Performed By: #### B FCT #### [facility] ([id number]) [address], [address] [place] [address] FLUID LYMPHOCYTE 15 % Normal [facility] Comment on above: Performed By: #### B FCT #### [facility] ([id number]) [address], [address] [place] [address] FLUID NEUTROPHILS 50 % Normal [facility] Comment on above: Performed By: #### B FCT #### [facility] ([id number]) [address], [address] [place] [address] 42 /uL Normal [facility] Comment on above: Performed By: #### B FCT #### [facility] ([id number]) [address], [address] [place] [address] FLUID SPECIMEN TYPE BRONCHOALVEOLAR LAVAGE Normal [facility] Comment on above: Result Comment: RIGH T LUNG, MIDDLE LOBE Performed By: #### B FCT #### [facility] ([id number]) [address], [address] [place] [address] MACROPHAGES 35 % Normal [facility] Comment on above: Performed By: #### B FCT #### [facility] ([id number]) [address], [address] [place] [address] 38 /uL Normal [facility] Comment on above: Performed By: #### B FCT #### [facility] ([id number]) [address], [address] [place] [address] Cytologyon 03-01-2024 Cytology Normal [facility] Comment on above: Result Comment: [facility] [address] [place] [address] Cytology Consultation Patient Name:JAZZMINE PATEL:1950 (Age: 73)Gender:FTaken:5/7/2024Reported:03/03/2024 10:42Physician(s):EILEEN FONSECA DO ([phone])Copy To: Rec. #:[id number]: #[id number] Final Cytologic Diagnosis 1. 4L fine needle aspirate: No malignant epithelial cells identified. Adequate lymphoid sample 2. Right middle lobe bronchoalveolar lavage: No malignant cells identified. k/03/03/2024 [place] [address], License number: [id number].Electronically Signed Out By Sangeeta German MD Clinical History Adenocarcinoma of lingula. lung cancer, need for staging Rapid On Site Interpretation 1. 4L fine needle aspirate: Passes 1-3: Negative, adequate lymphoid cells Dr. Cortes Interpretation provided at [facility], [address] [place] [address]. Gross Description 1.Prepared in Endoscopy were 6 slides (3DQ). Also received was a needle rinse in CytoLyt for cellblock. Needle rinse obtained at 10:40 and placed in formalin at 15:00 with a total formalin fixation time of 10 hours. 2.Received was 15mL of cloudy colorless fluid unfixed labeled as Homler, Right middle lobe, BAL . CytoLyt added in lab. Specimen placed in formalin at 15:00 and had a total fixation time of 10 hours. Source of Specimen 1: 4L fine needle aspirate Cell block for Non-pattern grader cutter (M), Level 2 H&E, Slides Made x 6 2: Right middle lobe bronchoalveolar lavage Cell block for Non-pattern grader cutter (M), Level 2 H&E, Non INSOLE PRESSER ThinPrep Fee Code(s): 1; 00005, 08018, 26481 2; 87383, 29577 FUNGAL CULTUREon 03-01-2024 Fungus identified Cx Nom (Unsp spec) SPECIMEN NOTES SPECIMEN 1 FUNGAL SMEAR NO FUNGAL ELEMENTS SEEN ON CONCENTRATED SMEAR CULTURE RESULTS NO FUNGUS ISOLATED AFTER 4 WEEKS Normal [facility] Comment on above: Performed By: #### 5 80-1 ####[facility] ([id number])[address] [place] [address], [address], [place] [address] Glucose Glucometer (BldC) [M ass/Vol]on 03-01-2024 Glucose [Mass/Vol] 124 mg/dL High 65-99 [facility] LOWER RESPIRATORY CULTUREon 03-01-2024 Bacteria identified Respiratory culture Nom (Sput) SPECIMEN NOTES SPECIMEN 1 GRAM STAIN 1 to 9 WHITE BLOOD CELLS/LPF 0 SQUAMOUS EPITHELIAL CELLS/LPF 0 CILIATED EPITHELIAL CELLS/LPF NO ORGANISMS SEEN CULTURE RESULTS RARE LACTOSE FERMENTING GRAM NEGATIVE RODS CALL MICROBIOLOGY IF FURTHER WORK DESIRED. ISOLATES HELD FOR 7 DAYS PAST FINAL DATE. RARE NORMAL ORAL SANA RARE Streptococcus Pneumoniae [ S = SUSCEPTIBLE R = RESISTANT I = INTERMEDIATE S-DO = Susceptible-dose dependent NS = Non-suscceptible NO = No Interpretation ] Organism: STREPTOCOCCUS PNEUMONIAE Antibiotic Interpretation UNIQUE Status AZITHROMYCIN R F CEFOTAXIME(meningiti s) S 0.5 F CEFOTAXIME S 0.5 F CLSI guidelines interpret Cefotaxime MICs based upon meningitis vs. nonmeningitis criteria. CEFTRIAXONE(meningit is) S 0.5 F CEFTRIAXONE S 0.5 F CLSI guidelines interpret Ceftriaxone MICs based upon meningitis vs. nonmeningitis criteria. ERYTHROMYCIN R >=8 F LEVOFLOXACIN S 0.5 F VANCOMYCIN S <=0.12 F PENICILLIN(IV,mening itis) R 1 F PENICILLIN (oral) I 1 F High doses of Penicillin may effectively treat intermediately susceptible cases of Streptococcus pneumoniae except when complicated (e.g. as in meningitis, empyema, or endocarditis). PENICILLIN(IV,nonmen ing.) S 1 F Susceptible [facility] Comment on above: Performed By: #### 6 24-7 ####[facility] ([id number])0 [facility], [address] [place] [address] BASIC METABOLIC PANLon 02-25 Anion gap [Moles/Vol] 10 mmol/L Normal 5-15 [facility] Comment on above: Performed By: #### C BCA, 52920-7, BMP, 12475-8, 22999-6 #### [facility] ([id number]) [address] [place] [address], [place] [address] Calcium [Mass/Vol] 8.5 mg/dL Normal [facility]5-10.5 [facility] Comment on above: Performed By: #### C BCA, 38010-2, BMP, 70447-8, 56675-6 #### [facility] ([id number]) [address] [place] [address] Chloride [Moles/Vol] 99 mmol/L Normal 98-[address] [facility] Comment on above: Performed By: #### C BCA, 25630-3, BMP, 16473-3, 10258-2 #### [facility] ([id number]) [address] [place] [address]186 CO2 [Moles/Vol] 32 mmol/L Normal 22-32 [facility] Comment on above: Performed By: #### C JORGE, 16493-9, BMP, 22109-1, 10362-1 #### [facility] ([id number]) [address] [place] [address] 47987 Creatinine [Mass/Vol] 0.90 mg/dL Normal 0.40-1.00 [facility] Comment on above: Result Comment: METH OD TRACEABLE TO IDMS STANDARD Performed By: #### C JORGE, 36861-5, BMP, 82041-5, 35036-9 #### [facility] ([id number]) [address] [place] [address] GFR/1.73 sq M.predicted among non-blacks MDRD (S/P/Bld) [Vol rate/Area] 68 mL/min/{1.73_m2} Normal >59 [facility] Comment on above: Result Comment: Reported eGFR is based on the CKD-EPI 2020 equation that does not use a race coefficient. Performed By: #### C BCA, 90630-2, BMP, 22877-4, 52959-0 #### [facility] ([id number]) [address] [place] [address]25 Glucose [Mass/Vol] 92 mg/dL Normal 65-99 [facility] Comment on above: Performed By: #### C BCA, 89501-9, BMP, 68821-1, 66186-5 #### [facility] ([id number]) [address] [place] [address] 32954 Potassium [Moles/Vol] 4.0 mmol/L Normal 3.5-5.0 [facility] Comment on above: Performed By: #### Neymar BCA, 63049-9, BMP, 63000-8, 56635-9 #### [facility] ([id number]) [address] [place] [address] 55473 Sodium [Moles/Vol] 141 mmol/L Normal 134-146 [facility] Comment on above: Performed By: #### Neymar BCA, 05472-8, BMP, 01276-1, 25485-2 #### [facility] ([id number]) [address] [place] [address] 32311 Urea nitrogen [Mass/Vol] 21 mg/dL Normal 5-27 [facility] Comment on above: Performed By: #### Neymar BCA, 27187-5, BMP, 36525-7, 83539-1 #### [facility] ([id number]) [address] [place] [address]116 CBC AND AUTO DIFFon 02-26-20 24 ABSOLUTE BASOPHIL 0.1 X10E9/L Normal 0.0-0.2 [facility] Comment on above: Performed By: #### Neymar BCA, 25202-6, BMP, 05309-7, 98397-5 #### [facility] ([id number]) [address] [place] [address] 09645 ABSOLUTE NEUTROPHIL 3.8 X10E9/L Normal 1.5-6.[address] [facility] Comment on above: Performed By: #### Neymar BCA, 53774-2, BMP, 56699-9, 51068-8 #### [facility] ([id number]) [address] [place] [address] 99567 Basophils/100 WBC (Bld) 1.2 % Normal [facility] Comment on above: Performed By: #### C JORGE, 97186-0, BMP, 06016-0, 58157-0 #### [facility] ([id number]) [address] [place] [address] 94190 Eosinophils (Bld) [#/Vol] 0.2 10*3/uL Normal 0.0-0.4 [facility] Comment on above: Performed By: #### C JORGE, 12825-9, BMP, 63875-2, 64412-6 #### [facility] ([id number]) [address] [place] [address] 47675 Eosinophils/100 WBC (Bld) 2.9 % Normal [facility] Comment on above: Performed By: #### C JORGE, 20117-7, BMP, 67617-2, 35689-0 #### [facility] ([id number]) [address] [place] [address] 62738 Erythrocyte distribution width (RBC) [Ratio] 14.3 % Normal 11.5-15.0 [facility] Comment on above: Performed By: #### C JORGE, 35002-2, BMP, 36209-4, 81691-0 #### [facility] ([id number]) [address] [place] [address] 63[address] Hematocrit (Bld) [Volume fraction] 42.1 % Normal 35-47 [facility] Comment on above: Performed By: #### C BCA, 39580-5, BMP, 82472-4, 67535-0 #### [facility] ([id number]) [address] [place] [address] 90890 Hemoglobin (Bld) [Mass/Vol] 14.4 g/dL Normal 11.7-15.5 [facility] Comment on above: Performed By: #### C BCA, 82234-8, BMP, 45167-5, 00166-9 #### [facility] ([id number]) [address] [place] [address] 71472 Lymphocytes (Bld) [#/Vol] 2.3 10*3/uL Normal 1.0-3.5 [facility] Comment on above: Performed By: #### Neymar PATEL, 54086-5, BMP, 22780-3, 78933-8 #### [facility] ([id number]) [address] [place] [address] 46433 Lymphocytes/100 WBC (Bld) 33.4 % Normal [facility] Comment on above: Performed By: #### Neymar PATEL, 46630-6, BMP, 17725-2, 18148-3 #### [facility] ([id number]) [address] [place] [address] 03462 MCH (RBC) [Entitic mass] 30.3 pg Normal 27-34 [facility] Comment on above: Performed By: #### C JORGE, 35327-6, BMP, 14089-4, 19189-3 #### [facility] ([id number]) [address] [place] [address] 09759 MCHC (RBC) [Mass/Vol] 34.1 g/dL Normal 32-36 [facility] Comment on above: Performed By: #### Neymar PATEL, 08845-9, BMP, 83549-5, 70119-9 #### [facility] ([id number]) [address] [place] [address] 55432 MCV (RBC) [Entitic vol] 89 fL Normal 80-100 [facility] Comment on above: Performed By: #### Neymar PATEL, 76622-7, BMP, 34302-4, 27802-5 #### [facility] ([id number]) [address] [place] [address] 51427 Monocytes (Bld) [#/Vol] 0.5 10*3/uL Normal 0-0.9 [facility] Comment on above: Performed By: #### Neymar BCA, 03980-9, BMP, 92024-1, 28535-5 #### [facility] ([id number]) [address] [place] [address] 81875 Monocytes/100 WBC (Bld) 7.1 % Normal [facility] Comment on above: Performed By: #### Neymar BCA, 58023-5, BMP, 63520-6, 28672-1 #### [facility] ([id number]) [address] [place] [address] 30382 Neutrophils/100 WBC (Bld) 55.4 % Normal [facility] Comment on above: Performed By: #### Neymar PATEL, 26005-2, BMP, 80741-3, 12510-7 #### [facility] ([id number]) [address] [place] [address] [place] [address] Platelet mean volume (Bld) [Entitic vol] 9.1 fL Normal 7-12 [facility] Comment on above: Performed By: #### Neymar PATEL, 98341-5, BMP, 74235-5, 36005-9 #### [facility] ([id number]) [address] [place] [address] 84390 Platelets (Bld) [#/Vol] 252 10*3/uL Normal 150-450 [facility] Comment on above: Performed By: #### Neymar BCA, 54343-0, BMP, 61057-4, 76988-6 #### [facility] ([id number]) [address] [place] [address] 60312 RBC COUNT 4.73 X10E12/L Normal 3.80-5.20 [facility] Comment on above: Performed By: #### Neymar PATEL, 10377-5, BMP, 91171-6, 94829-8 #### [facility] ([id number]) [address] [place] [address] 52924 WBC (Bld) [#/Vol] 6.9 10*3/uL Normal 4.0-11.0 [facility] Comment on above: Performed By: #### C JORGE, 33517-3, BMP, 30807-8, 46868-3 #### [facility] ([id number]) [address] [place] [address] 89329 HGB A1C (GLYCO-HGB)on 2023 Glucose [Mass/Vol] 140 mg/dL [facility] Comment on above: Performed By: #### Neymar PATEL, 65878-9, DMITRY, 50490-5, 97550-6 #### [facility] ([id number]) [address] [place] [address] 60251 HbA1c (Bld) [Mass fraction] 6.5 % High 4.4-5.6 [facility] Comment on above: Result Comment: NOTE ADA Guidelines Result HgbA1c Normal : less than 5.7 % Prediabetes : 5.7 % to 6.4 % Diabetes : > 6.4 % Use with caution in patients with abnormal hemoglobin variants as the half-life of red blood cells and in vivo glycation rates are affected. Performed By: #### Neymar PATEL, 65605-6, DMITRY, 75017-0, 33833-5 #### [facility] ([id number]) [address] [place] [address] 42691 PROTIME AND INRon 02-26-2024 INR Coag (PPP) [Relative time] 1.0 {INR} Normal 0.8-1.1 [facility] Comment on above: Performed By: #### Neymar PATEL, 77105-0, BMP, 73195-5, 95133-1 #### [facility] ([id number]) [address] [place] [address], [place] [address] PT Coag (PPP) [Time] 11.2 s Normal 9.8-13.[address] [facility] Comment on above: Result Comment: NEW REFERENCE RANGE Performed By: #### C BCA, 50558-2, BMP, 63019-8, 09978-9 #### [facility] ([id number]) [address] [place] [address] 17207 aPTT Coag (PPP) [Time]on aPTT Coag (Bld) [Time] 36 s Normal 26-37 [facility] Comment on above: Result Comment: NEW REFERENCE RANGE Performed By: #### C BCA, 93198-4, BMP, 98300-0, 31640-9 #### [facility] ([id number]) [address] [place] [address] 31289 BASIC METABOLIC PANLon 02-22 Anion gap [Moles/Vol] 12 mmol/L Normal 5-15 [facility] Comment on above: Performed By: #### C BCA, 36488-9, BMP, 98429-4, 82063-2 #### [facility] ([id number]) [address] [place] [address] 47083 Calcium [Mass/Vol] 8.0 mg/dL Low 8.5-10.5 [facility] Comment on above: Performed By: #### C BCA, 65775-4, BMP, 78953-2, 77735-2 #### [facility] ([id number]) [address] [place] [address] 53772 Chloride [Moles/Vol] 100 mmol/L Normal 98-[address] [facility] Comment on above: Performed By: #### C BCA, 01149-5, BMP, 49556-4, 16067-6 #### [facility] ([id number]) [address] [place] [address] 76349 CO2 [Moles/Vol] 29 mmol/L Normal 22-32 [facility] Comment on above: Performed By: #### C BCA, 54079-8, BMP, 71711-7, 23122-9 #### [facility] ([id number]) [address] [place] [address] 44801 Creatinine [Mass/Vol] 0.88 mg/dL Normal 0.40-1.00 [facility] Comment on above: Result Comment: METH OD TRACEABLE TO IDMS STANDARD Performed By: #### C BCA, 12661-2, BMP, 95041-5, 23343-7 #### [facility] ([id number]) [address] [place] [address] 92791 GFR/1.73 sq M.predicted among non-blacks MDRD (S/P/Bld) [Vol rate/Area] 70 mL/min/{1.73_m2} Normal >59 [facility] Comment on above: Result Comment: Reported eGFR is based on the CKD-EPI 2020 equation that does not use a race coefficient. Performed By: #### C BCA, 78920-1, BMP, 83528-2, 56295-7 #### [facility] ([id number]) [address] [place] [address] 42422 Glucose [Mass/Vol] 129 mg/dL High 65-99 [facility] Comment on above: Performed By: #### C BCA, 34992-4, BMP, 69877-0, 69473-9 #### [facility] ([id number]) [address] [place] [address] 81227 Potassium [Moles/Vol] 4.1 mmol/L Normal 3.5-5.0 [facility] Comment on above: Performed By: #### C BCA, 71117-5, BMP, 99614-8, 77105-8 #### [facility] ([id number]) [address] [place] [address] 09481 Sodium [Moles/Vol] 141 mmol/L Normal 134-146 [facility] Comment on above: Performed By: #### C BCA, 83341-3, BMP, 89969-0, 99664-8 #### [facility] ([id number]) [address] [place] [address] 93018 Urea nitrogen [Mass/Vol] 16 mg/dL Normal 5-27 [facility] Comment on above: Performed By: #### C BCA, 44508-2, BMP, 07654-8, 99092-6 #### [facility] ([id number]) [address] [place] [address] 29060 Consultation/Specialist Note on 02-23-2024 Consultation/Specialist Note [id number] #1.00OTGTIFF Normal [facility] Lipid 1996 panelon Cholesterol [Mass/Vol] 124 mg/dL Low 150-200 [facility] Comment on above: Performed By: #### Neymar BCA, 26807-6, BMP, 89405-4, 87678-4 #### [facility] ([id number]) [address] [place] [address] 12025 Cholesterol in HDL [Mass/Vol] 54 mg/dL Normal >39 [facility] Comment on above: Result Comment: HDL <40 mg/dL - High Risk HDL > or = 40mg/dL- Desirable HDL >60 mg/dL - Negative Risk Performed By: #### C BCA, 93167-9, BMP, 94418-2, 10130-4 #### [facility] ([id number]) [address] [place] [address] 77250 Cholesterol in LDL [Mass/Vol] 50 mg/dL Normal <130 [facility] Comment on above: Result Comment: LDL <100 mg/dL - Desirable LDL >160 mg/dL - High Risk Performed By: #### C BCA, 72137-3, BMP, 92050-7, 92746-5 #### [facility] ([id number]) [address] [place] [address] 05818 Cholesterol in VLDL [Mass/Vol] 20 mg/dL Normal 0-30 [facility] Comment on above: Performed By: #### C BCA, 37723-3, BMP, 54599-1, 37940-9 #### [facility] ([id number]) [address] [place] [address] 26517 CHOLESTEROL:HDL 2.3 Normal 1.0-5.0 [facility] Comment on above: Performed By: #### C BCA, 38848-5, BMP, 28721-4, 27313-2 #### [facility] ([id number]) [address] [place] [address] 52470 Triglyceride [Mass/Vol] 98 mg/dL Normal 27-150 [facility] Comment on above: Performed By: #### C BCA, 55861-1, BMP, 23048-5, 28714-8 #### [facility] ([id number]) [address] [place] [address] 65882 MR BRAIN W WO CONTon 024 MR BRAIN W WO CONT MR BRAIN W WO CONT HISTORY: A 73-year-old female with the history of the carcinoma of the left lung. Memory loss. Intracranial metastasis is suspected. TECHNIQUE: Multiplanar and multisequence MRI examination of brain is performed without and with intravenous contrast administration. COMPARISON: Comparison is made with MRI examination of brain of 02/14/2021. FINDINGS: The ventricular system is normal in size and configuration. There is generalized cortical atrophy. There is a focal area of encephalomalacia with gliosis in the right occipital and posterior parietal lobe. This is likely to be a sequelae of the prior infarction. Diffusion-weighted study demonstrates no evidence of restricted diffusion to suggest acute or subacute age of infarction. There is no evidence of intracranial mass, hemorrhage or acute pathology. The cerebellum and brainstem are unremarkable. No mass effect, midline shift of the structures or extra-axial fluid collections are noted. Postcontrast examination reveals no abnormal meningeal or parenchymal enhancement. No evidence of intracranial metastatic disease. Both distal internal carotid and vertebrobasilar arteries are patent. Dural venous sinuses are patent. Visualized paranasal sinuses and mastoid air cells are clear. IMPRESSION: * No evidence of intracranial metastatic disease. * Focal encephalomalacia with gliosis in the right occipital and posterior parietal lobe. This is a sequelae of the prior infarction. * Mild degree of cortical atrophy. * No evidence of intracranial mass or abnormal enhancing pathology. Finalized by Tramaine You MD on 02/23/2024 12:27 PM Normal [facility] THYROID PROFILEon 02-23-2024 Free T4 [Mass/Vol] 0.67 ng/dL Normal 0.61-1.60 [facility] Comment on above: Performed By: #### C BCA, 82868-4, BMP, 47111-7, 70907-8 #### [facility] ([id number]) [address] [place] [address] 71283 TSH 0.50 uIU/mL Normal 0.49-4.67 [facility] Comment on above: Performed By: #### C BCA, 42160-5, BMP, 90348-3, 77040-0 #### [facility] ([id number]) [address] [place] [address] 37674 Lab - Other Lab Resultson Lab - Other Lab Results [id number] 8#1.00OTGTIFF Normal [facility] Rad - Other Radiology Report on 02-16-2024 Rad - Other Radiology Report [id number] 0#1.00OTGTIFF Normal [facility] PET CT SKULL TO THIGHon 01-[address] SKULL TO THIGH PET CT SKULL TO THIGH PET CT SKULL TO THIGH CLINICAL HISTORY: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 Fasting glucose was 85 mg/dL at the time of administration. CT was performed utilizing free breathing technique and nondiagnostic collimation for the purposes attenuation correction and localization of radiotracer activity. FINDINGS: Physiologic distribution of radiotracer within the neck and frontal soft tissues. No abnormal enlarged cervical, supraclavicular or axillary lymph nodes. There is artifact associated with left shoulder hardware. Left lower lobe opacity demonstrates focal radiotracer activity likely related to neoplasm with maximum SUV of 8.3 with linear extension to the pleura. Physiologic distribution radiotracer within the abdomen and pelvis. Physiologic bowel and urinary activity. There are no abnormal enlarged mesenteric, retroperitoneal or pelvic lymph nodes. IMPRESSION: 1. Focal activity seen within the inferior lingular lesion likely related to neoplasm associated with parenchymal scarring which does extend to the pleura. No abnormal enlarged mediastinal or hilar lymph nodes are scintigraphic evidence of distant metastatic disease. Finalized by Eber Kumar MD on 02/15/2024 9:25 AM Normal [facility] Lab - Other Pathology Report on 02-04-2024 Lab - Other Pathology Report [id number] #1.00OTGTIFF Normal [facility] Outside Recordson 02-04-2024 Outside Records [id number] #1.00OTGTIFF [facility] CBC AND AUTO DIFFon 02-01-20 24 ABSOLUTE BASOPHIL 0.1 X10E9/L Normal 0.0-0.2 [facility] Comment on above: Performed By: #### C BCA, 34553-5, BMP, 67467-6, 19447-2 #### [facility] ([id number]) [address] [place] [address], [place] [address] ABSOLUTE NEUTROPHIL 6.5 X10E9/L Normal 1.5-6.[address] [facility] Comment on above: Performed By: #### C BCA, 64537-8, BMP, 85876-8, 36726-3 #### [facility] ([id number]) [address] [place] [address] 35654 Basophils/100 WBC (Bld) 0.7 % Normal [facility] Comment on above: Performed By: #### Neymar PATEL, 51054-1, BMP, 99920-7, 13478-2 #### [facility] ([id number]) [address] [place] [address] 28097 Eosinophils (Bld) [#/Vol] 0.2 10*3/uL Normal 0.0-0.4 [facility] Comment on above: Performed By: #### Neymar PATEL, 23742-0, BMP, 04622-7, 70341-9 #### [facility] ([id number]) [address] [place] [address] 46692 Eosinophils/100 WBC (Bld) 1.9 % Normal [facility] Comment on above: Performed By: #### Neymar PATEL, 67989-3, BMP, 35527-8, 93944-0 #### [facility] ([id number]) [address] [place] [address] 56879 Erythrocyte distribution width (RBC) [Ratio] 14.1 % Normal 11.5-15.0 [facility] Comment on above: Performed By: #### Neymar BCA, 83422-0, BMP, 09619-4, 04163-7 #### [facility] ([id number]) [address] [place] [address] 17444 Hematocrit (Bld) [Volume fraction] 38.7 % Normal 35-47 [facility] Comment on above: Performed By: #### Neymar PATEL, 42528-8, BMP, 01262-7, 86987-9 #### [facility] ([id number]) [address] [place] [address] 42123 Hemoglobin (Bld) [Mass/Vol] 13.0 g/dL Normal 11.7-15.5 [facility] Comment on above: Performed By: #### C JORGE, 29222-2, BMP, 99673-1, 13679-4 #### [facility] ([id number]) [address] [place] [address] 04138 Lymphocytes (Bld) [#/Vol] 2.2 10*3/uL Normal 1.0-3.5 [facility] Comment on above: Performed By: #### Neymar PATEL, 66553-3, BMP, 97069-3, 63146-6 #### [facility] ([id number]) [address] [place] [address] 61501 Lymphocytes/100 WBC (Bld) 22.5 % Normal [facility] Comment on above: Performed By: #### Neymar PATEL, 25037-4, BMP, 22244-0, 42520-6 #### [facility] ([id number]) [address] [place] [address] 22319 MCH (RBC) [Entitic mass] 30.0 pg Normal 27-34 [facility] Comment on above: Performed By: #### Neymar PATEL, 26208-4, BMP, 74590-8, 54044-3 #### [facility] ([id number]) [address] [place] [address] 11119 MCHC (RBC) [Mass/Vol] 33.7 g/dL Normal 32-36 [facility] Comment on above: Performed By: #### Neymar PATEL, 92495-0, BMP, 06507-1, 35106-4 #### [facility] ([id number]) [address] [place] [address] 15049 MCV (RBC) [Entitic vol] 89 fL Normal 80-100 [facility] Comment on above: Performed By: #### C BCA, 08629-0, BMP, 97170-7, 56476-1 #### [facility] ([id number]) [address] [place] [address] 50778 Monocytes (Bld) [#/Vol] 0.7 10*3/uL Normal 0-0.9 [facility] Comment on above: Performed By: #### Neymar BCA, 65148-3, BMP, 58300-3, 13994-3 #### [facility] ([id number]) [address] [place] [address] 21449 Monocytes/100 WBC (Bld) 7.4 % Normal [facility] Comment on above: Performed By: #### Neymar BCA, 74942-4, BMP, 60697-3, 71028-8 #### [facility] ([id number]) [address] [place] [address] 97402 Neutrophils/100 WBC (Bld) 67.5 % Normal [facility] Comment on above: Performed By: #### Neymar PATEL, 55546-2, BMP, 00695-8, 19331-3 #### [facility] ([id number]) [address] [place] [address] 07078 Platelet mean volume (Bld) [Entitic vol] 8.4 fL Normal 7-12 [facility] Comment on above: Performed By: #### Neymar BCA, 74673-7, BMP, 32219-1, 81568-6 #### [facility] ([id number]) [address] [place] [address] 63517 Platelets (Bld) [#/Vol] 256 10*3/uL Normal 150-450 [facility] Comment on above: Performed By: #### Neymar BCA, 82355-4, BMP, 01427-5, 73499-8 #### [facility] ([id number]) [address] [place] [address] 76093 RBC COUNT 4.34 X10E12/L Normal 3.80-5.20 [facility] Comment on above: Performed By: #### C BCA, 19319-3, BMP, 26144-2, 86396-4 #### [facility] ([id number]) [address] [place] [address] 99811 WBC (Bld) [#/Vol] 9.6 10*3/uL Normal 4.0-11.0 [facility] Comment on above: Performed By: #### C BCA, 66234-9, BMP, 10171-6, 04612-0 #### [facility] ([id number]) [address] [place] [address] 62039 COMPREHENSIVE METABOLIC PANE Kemal 02-01-2024 Albumin [Mass/Vol] 3.4 g/dL Normal 3.2-5.3 [facility] Comment on above: Performed By: #### Neymar BCA, 45639-3, BMP, 01899-5, 16325-3 #### [facility] ([id number]) [address] [place] [address] 34886 ALP [Catalytic activity/Vol] 63 U/L Normal 39-130 [facility] Comment on above: Performed By: #### Neymar BCA, 04152-0, BMP, 15232-3, 78406-6 #### [facility] ([id number]) [address] [place] [address] 89873 ALT [Catalytic activity/Vol] 31 U/L Normal 0-31 [facility] Comment on above: Performed By: #### C BCA, 77358-3, BMP, 88269-4, 13734-6 #### [facility] ([id number]) [address] [place] [address] 19928 Anion gap [Moles/Vol] 6 mmol/L Normal 5-15 [facility] Comment on above: Performed By: #### Neymar BCA, 80485-8, BMP, 04934-8, 85136-1 #### [facility] ([id number]) [address] [place] [address] 52499 AST [Catalytic activity/Vol] 29 U/L Normal 0-41 [facility] Comment on above: Performed By: #### C BCA, 97620-8, BMP, 94555-1, 12470-9 #### [facility] ([id number]) [address] [place] [address] 67436 Bilirubin [Mass/Vol] 0.4 mg/dL Normal 0.3-1.[address] [facility] Comment on above: Performed By: #### Neymar BCA, 56899-4, BMP, 93409-5, 10879-5 #### [facility] ([id number]) [address] [place] [address] 94550 Calcium [Mass/Vol] 6.8 mg/dL Critically low 8.5-10.5 [facility] Comment on above: Performed By: #### C BCA, 98743-1, BMP, 64012-4, 64416-2 #### [facility] ([id number]) [address] [place] [address] 24180 Chloride [Moles/Vol] 103 mmol/L Normal 98-[address] [facility] Comment on above: Performed By: #### Neymar BCA, 77409-0, BMP, 85873-5, 18765-0 #### [facility] ([id number]) [address] [place] [address] 07908 CO2 [Moles/Vol] 27 mmol/L Normal 22-32 [facility] Comment on above: Performed By: #### Neymar BCA, 55216-1, BMP, 84414-3, 22885-3 #### [facility] ([id number]) [address] [place] [address] 66638 Creatinine [Mass/Vol] 0.88 mg/dL Normal 0.40-1.00 [facility] Comment on above: Result Comment: METH OD TRACEABLE TO IDMS STANDARD Performed By: #### C BCA, 10490-6, BMP, 47731-3, 44496-6 #### [facility] ([id number]) [address] [place] [address] 29550 GFR/1.73 sq M.predicted among non-blacks MDRD (S/P/Bld) [Vol rate/Area] 70 mL/min/{1.73_m2} Normal >59 [facility] Comment on above: Result Comment: Reported eGFR is based on the CKD-EPI 2020 equation that does not use a race coefficient. Performed By: #### C JORGE, 42511-3, BMP, 48463-3, 19136-3 #### [facility] ([id number]) [address] [place] [address] 88059 Glucose [Mass/Vol] 159 mg/dL High 65-99 [facility] Comment on above: Performed By: #### C JORGE, 67899-9, BMP, 43388-9, 39910-7 #### [facility] ([id number]) [address] [place] [address] 25959 Potassium [Moles/Vol] 3.4 mmol/L Low 3.5-5.0 [facility] Comment on above: Performed By: #### C JORGE, 05074-0, BMP, 06855-4, 64408-0 #### [facility] ([id number]) [address] [place] [address] 81493 Protein [Mass/Vol] 7.0 g/dL Normal 6.0-8.0 [facility] Comment on above: Performed By: #### C BCA, 89898-4, BMP, 59985-0, 05411-0 #### [facility] ([id number]) [address] [place] [address] 25999 Sodium [Moles/Vol] 136 mmol/L Normal 134-146 [facility] Comment on above: Performed By: #### C BCA, 81625-7, BMP, 60324-0, 07147-4 #### [facility] ([id number]) [address] [place] [address] 47422 Urea nitrogen [Mass/Vol] 15 mg/dL Normal 5-27 [facility] Comment on above: Performed By: #### C BCA, 67938-3, BMP, 53849-2, 54460-9 #### [facility] ([id number]) [address] [place] [address] 62868 MAGNESIUMon 02-01-2024 Magnesium [Mass/Vol] 1.9 mg/dL Normal 1.8-2.[address] [facility] Comment on above: Performed By: #### C JORGE, 05989-5, BMP, 50979-5, 13748-0 #### [facility] ([id number]) [address] [place] [address] 38175 TROPONIN Ion 02-01-2024 Troponin I.cardiac [Mass/Vol] 0.04 ng/mL Normal 0.00-0.04 [facility] Comment on above: Performed By: #### C BCA, 24655-7, BMP, 91643-3, 42464-7 #### [facility] ([id number]) [address] [place] [address] 97599 XR CHEST 2 VWSon 02-01-2024 XR CHEST 2 VWS XR CHEST 2 VWS History: [Cough. Shortness of breath. Post bronchoscopy complication.] Frontal and lateral chest radiographs demonstrate [that the patient is rotated to the right, limiting evaluation of the chest. There is a band of opacity in the lingular segment of the left upper lobe with air bronchograms, best seen on the lateral view. There may be volume loss associated with this. There is no definite pneumothorax, pleural effusion or other significant abnormality] Impression: [Airspace disease, likely atelectasis, in the lingular segment of left upper lobe.] Finalized by Jurgen Barnard MD on 02/01/2024 12:51 PM Normal [facility] Outside Recordson 01-27-2024 Outside Records [id number] Normal [facility] AFB CULTURE(CONCENTRATED)on 01-26-2024 Mycobacterium sp identified Org specific cx Nom (Unsp spec) AFB SMEAR NO ACID FAST BACILLI (CONCENTRATED SMEAR) CULTURE RESULTS NO ACID FAST BACILLI ISOLATED IN 8 WEEKS Normal [facility] Comment on above: Performed By: #### 5 43-9 #### [facility] ([id number]) [address] [place] [address] AND DIFFon 2023 BODY FLUID COMMENT Interpreta tion-------- Normal [facility] Comment on above: Result Comment: Refe rence values for this fluid type are undefined, as fluid accumulation is considered abnormal. Performed By: #### B FCT #### [facility] ([id number]) [address], [address] [place] [address] FLUID CLARITY HAZY Normal [facility] Comment on above: Performed By: #### B FCT #### [facility] LAB ([id number]) [address], [address] [place] [address] FLUID COLOR COLORLESS Normal [facility] Comment on above: Performed By: #### B FCT #### [facility] ([id number]) [address], [address] [place] [address] FLUID NEUTROPHILS 98 % Normal [facility] Comment on above: Performed By: #### B FCT #### [facility] ([id number]) [address], [address] [place] [address] 42 /uL Normal [facility] Comment on above: Performed By: #### B FCT #### [facility] ([id number]) [address] [place] [address], [address] [place] [address] FLUID SPECIMEN TYPE BRONCHOALVEOLAR LAVAGE Normal [facility] Comment on above: Performed By: #### B FCT #### [facility] ([id number]) [address] [place] [address] [address] [place] [address] MACROPHAGES 2 % Normal [facility] Comment on above: Performed By: #### B FCT #### [facility] ([id number]) [address] [place] [address], [facility] [address] [place] [address] 2180 /uL Normal [facility] Comment on above: Performed By: #### B FCT #### [facility] ([id number]) [address] [place] [address], [address] [address] Cytologyon 01-26-2024 Cytology Normal [facility] Comment on above: Result Comment: [facility] [address] [place] [address] Cytology Consultation Patient Name:JAZZMINE PATEL:1950 (Age: 73)Gender:FTaken:01/26/2024eported:02/02/2024 15:31Physician(s):EILEEN FONSECA DO ([phone])Copy To: Rec. #:[id number]: #[id number] Final Cytologic Diagnosis Bronchoalveolar lavage, lingula: Atypical cells are present. cjb/02/02/2024 Interpretation performed at [facility], [address] [place] [address], License number: [id number].Electronically Signed Out By Breonna Molina MD Clinical History Langular obstruction and chronic cough. Gross Description Received was 20mL of cloudy colorless fluid unfixed labeled as Homler, BAL, lingula . CytoLyt added in lab. Specimen placed in formalin at 17:00 and had a total fixation time of 8 hours. Source of Specimen Bronchoalveolar lavage, lingula Cell block for Non-pattern grader cutter (M), Level 2 H&E, Non INSOLE PRESSER ThinPrep Fee Code(s): 1; 41164, 57766 FUNGAL CULTUREon 01-26-2024 Fungus identified Cx Nom (Unsp spec) FUNGAL SMEAR NO FUNGAL ELEMENTS SEEN ON CONCENTRATED SMEAR CULTURE RESULTS NO FUNGUS ISOLATED AFTER 4 WEEKS Normal [facility] Comment on above: Performed By: #### 5 80-1 #### [facility] ([id number]) [address], [address] [place] [address] Glucose Glucometer (BldC) [M ass/Vol]on 01-26-2024 Glucose [Mass/Vol] 71 mg/dL Normal 65-99 [facility] Glucose [Mass/Vol] 73 mg/dL Normal 65-99 [facility] LOWER RESPIRATORY CULTUREon 01-26-2024 Bacteria identified Respiratory culture Nom (Sput) GRAM STAIN >25 WHITE BLOOD CELLS/LPF 0 SQUAMOUS EPITHELIAL CELLS/LPF 0 CILIATED EPITHELIAL CELLS/LPF FEW GRAM POSITIVE COCCI FEW GRAM NEGATIVE RODS CULTURE RESULTS MODERATE Haemophilus Influenzae BETA LACTAMASE NEGATIVE FEW Streptococcus Pneumoniae RARE KLEBSIELLA PNEUMONIAE [ S = SUSCEPTIBLE R = RESISTANT I = INTERMEDIATE S-DO = Susceptible-dose dependent NS = Non-suscceptible NO = No Interpretation ] Organism: STREPTOCOCCUS PNEUMONIAE Antibiotic Interpretation UNIQUE Status AZITHROMYCIN R F CEFOTAXIME(meningiti s) S 0.5 F CEFOTAXIME S 0.5 F CLSI guidelines interpret Cefotaxime MICs based upon meningitis vs. nonmeningitis criteria. CEFTRIAXONE(meningit is) S 0.5 F CEFTRIAXONE S 0.5 F CLSI guidelines interpret Ceftriaxone MICs based upon meningitis vs. nonmeningitis criteria. ERYTHROMYCIN R >=8 F LEVOFLOXACIN S 0.5 F VANCOMYCIN S <=0.12 F PENICILLIN(IV,mening itis) R 1 F PENICILLIN (oral) I 1 F High doses of Penicillin may effectively treat intermediately susceptible cases of Streptococcus pneumoniae except when complicated (e.g. as in meningitis, empyema, or endocarditis). PENICILLIN(IV,nonmen ing.) S 1 F Susceptible [facility] Comment on above: Performed By: #### 6 24-7 #### [facility] ([id number]) [address] [place] [address], [address] [place] [address] Surgical Pathologyon 024 Surgical Pathology Normal [facility] Comment on above: Result Comment: [facility] [address] [place] [address] Surgical Pathology Consultation Patient Name:JAZZMINE PATEL:1950 (Age: 73)Gender:FTaken:01/26/2024eported:02/02/2024hysician(s):EILEEN FONSECA DO ([phone])Copy To: Rec. 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 Internal consultation with one additional pathologist and this is the consensus diagnosis. Comment Immunostains were performed to help evaluate the lesion: TTF1 is strong positive, P40 is positive in the basal cell layer, sox10 and Napsin A are negative. These results are supportive of the above diagnosis. All controls are adequate. Although no invasion is identified in this specimen, the adenocarcinoma in situ is extensive and therefore the possibility of invasive carcinoma in a non-biopsied area cannot be rule out. Report Electronically Signed Out cjb/02/02/2024niesha Molina MD Interpretation performed at [facility], [address] [place] [address], License number: [id number]. Clinical History Lingular obstruction and chronic cough. Gross Description Received in formalin labeled AMANDA endobronchial lesion, lingula are multiple thurston bits of soft tissue, aggregating to 0.9 x 0.1 x 0.1 cm. Filtered and submitted in a single cassette. (1, ns, [id number], m5) MG mjg/01/26/2024SSI Specimen(s) Received Endobronchial lesion, lingula Fee Codes(s): 1; 35898, 21510, 18468(3) BASIC METABOLIC PANLon 01-24 Anion gap [Moles/Vol] 12 mmol/L Normal 5-15 [facility] Comment on above: Performed By: #### C BCA, 79970-0, BMP, 56468-3, 78579-5 #### [facility] ([id number]) [address] [place] [address] Calcium [Mass/Vol] 7.4 mg/dL Low 8.5-10.5 [facility] Comment on above: Performed By: #### C BCA, 35012-6, BMP, 89799-6, 07516-6 #### [facility] ([id number]) [address] [place] [address] Chloride [Moles/Vol] 101 mmol/L Normal 98-[address] [facility] Comment on above: Performed By: #### C BCA, 87264-1, BMP, 23325-5, 46239-3 #### [facility] ([id number]) [address] [place] [address] CO2 [Moles/Vol] 29 mmol/L Normal 22-32 [facility] Comment on above: Performed By: #### C BCA, 24642-3, BMP, 13013-8, 92779-8 #### [facility] ([id number]) [address] [place] [address] Creatinine [Mass/Vol] 0.82 mg/dL Normal 0.40-1.00 [facility] Comment on above: Result Comment: METH OD TRACEABLE TO IDMS STANDARD Performed By: #### C BCA, 17341-8, BMP, 74661-2, 81403-1 #### [facility] ([id number]) [address] [place] [address] GFR/1.73 sq M.predicted among non-blacks MDRD (S/P/Bld) [Vol rate/Area] 76 mL/min/{1.73_m2} Normal >59 [facility] Comment on above: Result Comment: Reported eGFR is based on the CKD-EPI 2021 equation that does not use a race coefficient. Performed By: #### C BCA, 35553-8, BMP, 95606-1, 23259-0 #### [facility] ([id number]) [address] [place] [address] Glucose [Mass/Vol] 112 mg/dL High 65-99 [facility] Comment on above: Performed By: #### C BCA, 45512-0, BMP, 77556-6, 46504-8 #### [facility] ([id number]) [address] [place] [address] Potassium [Moles/Vol] 3.6 mmol/L Normal 3.5-5.0 [facility] Comment on above: Performed By: #### C BCA, 32993-9, BMP, 41818-0, 32871-1 #### [facility] ([id number]) [address] [place] [address] Sodium [Moles/Vol] 142 mmol/L Normal 134-146 [facility] Comment on above: Performed By: #### C BCA, 05762-6, BMP, 86613-5, 45967-2 #### [facility] ([id number]) [address] [place] [address] Urea nitrogen [Mass/Vol] 16 mg/dL Normal 5-27 [facility] Comment on above: Performed By: #### C BCA, 65064-4, BMP, 24629-0, 88210-5 #### [facility] ([id number]) [address] [place] [address] CBC AND AUTO DIFFon 01-25-20 24 ABSOLUTE BASOPHIL 0.1 X10E9/L Normal 0.0-0.2 [facility] Comment on above: Performed By: #### C BCA, 45690-8, BMP, 13890-0, 41583-2 #### [facility] ([id number]) [address] [place] [address], [place] [address] ABSOLUTE NEUTROPHIL 4.3 X10E9/L Normal 1.5-6.[address] [facility] Comment on above: Performed By: #### Neymar PATEL, 45455-1, BMP, 17857-5, 50873-4 #### [facility] ([id number]) [address] [place] [address] Basophils/100 WBC (Bld) 1.4 % Normal [facility] Comment on above: Performed By: #### C JORGE, 04457-9, BMP, 39510-7, 20395-0 #### [facility] ([id number]) [address] [place] [address] Eosinophils (Bld) [#/Vol] 0.1 10*3/uL Normal 0.0-0.4 [facility] Comment on above: Performed By: #### Neymar PATEL, 73330-5, BMP, 67330-5, 58093-9 #### [facility] ([id number]) [address] [place] [address] Eosinophils/100 WBC (Bld) 0.8 % Normal [facility] Comment on above: Performed By: #### Neymar PATEL, 46389-4, BMP, 12452-0, 18002-3 #### [facility] ([id number]) [address] [place] [address] Erythrocyte distribution width (RBC) [Ratio] 14.0 % Normal 11.5-15.0 [facility] Comment on above: Performed By: #### Neymar PATEL, 04310-8, BMP, 74628-7, 24853-1 #### [facility] ([id number]) [address] [place] [address] Hematocrit (Bld) [Volume fraction] 41.3 % Normal 35-47 [facility] Comment on above: Performed By: #### Neymar PATEL, 15524-1, BMP, 57732-3, 84736-0 #### [facility] ([id number]) [address] [place] [address] Hemoglobin (Bld) [Mass/Vol] 14.2 g/dL Normal 11.7-15.5 [facility] Comment on above: Performed By: #### Neymar PATEL, 36901-9, BMP, 95257-2, 42528-6 #### [facility] ([id number]) [address] [place] [address] Lymphocytes (Bld) [#/Vol] 2.0 10*3/uL Normal 1.0-3.5 [facility] Comment on above: Performed By: #### Neymar PATEL, 66323-4, BMP, 56783-6, 80955-1 #### [facility] ([id number]) [address] [place] [address] 75801 Lymphocytes/100 WBC (Bld) 29.5 % Normal [facility] Comment on above: Performed By: #### Neymar PATEL, 97149-8, BMP, 04086-2, 48998-7 #### [facility] ([id number]) [address] [place] [address] 63355 MCH (RBC) [Entitic mass] 30.8 pg Normal 27-34 [facility] Comment on above: Performed By: #### Neymar PATEL, 44531-9, BMP, 53015-6, 58719-4 #### [facility] ([id number]) [address] [place] [address] 80835 MCHC (RBC) [Mass/Vol] 34.5 g/dL Normal 32-36 [facility] Comment on above: Performed By: #### Neymar PATEL, 87714-1, BMP, 81104-2, 76121-0 #### [facility] ([id number]) [address] [place] [address] 93765 MCV (RBC) [Entitic vol] 89 fL Normal 80-100 [facility] Comment on above: Performed By: #### Neymar BCA, 28206-4, BMP, 62953-5, 40690-4 #### [facility] ([id number]) [address] [place] [address] 10449 Monocytes (Bld) [#/Vol] 0.4 10*3/uL Normal 0-0.9 [facility] Comment on above: Performed By: #### Neymar BCA, 85379-9, BMP, 77614-6, 21138-9 #### [facility] ([id number]) [address] [place] [address] 83284 Monocytes/100 WBC (Bld) 5.6 % Normal [facility] Comment on above: Performed By: #### Neymar PATEL, 44914-1, BMP, 63121-4, 77988-2 #### [facility] ([id number]) [address] [place] [address] 81505 Neutrophils/100 WBC (Bld) 62.7 % Normal [facility] Comment on above: Performed By: #### Neymar PATEL, 09010-9, BMP, 09023-3, 50894-1 #### [facility] ([id number]) [address] [place] [address] 62435 Platelet mean volume (Bld) [Entitic vol] 8.8 fL Normal 7-12 [facility] Comment on above: Performed By: #### Neymar BCA, 22189-9, BMP, 54920-7, 76044-9 #### [facility] ([id number]) [address] [place] [address] 62299 Platelets (Bld) [#/Vol] 230 10*3/uL Normal 150-450 [facility] Comment on above: Performed By: #### Neymar PATEL, 19959-7, BMP, 37396-5, 57514-3 #### [facility] ([id number]) [address] [place] [address] 74624 RBC COUNT 4.62 X10E12/L Normal 3.80-5.20 [facility] Comment on above: Performed By: #### C JORGE, 78946-7, BMP, 96246-7, 30415-3 #### [facility] ([id number]) [address] [place] [address] 35519 WBC (Bld) [#/Vol] 6.9 10*3/uL Normal 4.0-11.0 [facility] Comment on above: Performed By: #### C JORGE, 38514-4, BMP, 66463-4, 49198-5 #### [facility] ([id number]) [address] [place] [address] 51946 HGB A1C (GLYCO-HGB)on 2023 Glucose [Mass/Vol] 146 mg/dL Normal [facility] Comment on above: Performed By: #### C JORGE, 06723-8, BMP, 80557-1, 04258-3 #### [facility] ([id number]) [address] [place] [address] 64719 HbA1c (Bld) [Mass fraction] 6.7 % High 4.4-5.6 [facility] Comment on above: Result Comment: NOTE ADA Guidelines Result HgbA1c Normal : less than 5.7 % Prediabetes : 5.7 % to 6.4 % Diabetes : > 6.4 % Use with caution in patients with abnormal hemoglobin variants as the half-life of red blood cells and in vivo glycation rates are affected. Performed By: #### Neymar PATEL, 43644-5, BMP, 71501-2, 83588-5 #### [facility] ([id number]) [address] [place] [address] 11470 Lipid 1996 panelon 4 Cholesterol [Mass/Vol] 97 mg/dL Low 150-200 [facility] Comment on above: Performed By: ###Lily Blackmon BCA, 82011-5, BMP, 40867-9, 49888-8 #### [facility] ([id number]) [address] [place] [address] 24444 Cholesterol in HDL [Mass/Vol] 44 mg/dL Normal >39 [facility] Comment on above: Result Comment: HDL <40 mg/dL - High Risk HDL > or = 40mg/dL- Desirable HDL >60 mg/dL - Negative Risk Performed By: ###Lily Blackmon BCA, 06167-3, BMP, 59547-3, 49242-0 #### [facility] ([id number]) [address] [place] [address] 19079 Cholesterol in LDL [Mass/Vol] 41 mg/dL Normal <130 [facility] Comment on above: Result Comment: LDL <100 mg/dL - Desirable LDL >160 mg/dL - High Risk Performed By: ###Lily Blackmon BCA, 11911-2, BMP, 29691-2, 13013-6 #### [facility] ([id number]) [address] [place] [address] 98482 Cholesterol in VLDL [Mass/Vol] 12 mg/dL Normal 0-30 [facility] Comment on above: Performed By: #Angelic Blackmon BCA, 57921-7, BMP, 04935-4, 59499-7 #### [facility] ([id number]) [address] [place] [address] 75982 CHOLESTEROL:HDL 2.2 Normal 1.0-5.0 [facility] Comment on above: Performed By: #### C BCA, 83695-2, BMP, 64790-7, 64746-2 #### [facility] ([id number]) [address] [place] [address] 82258 Triglyceride [Mass/Vol] 62 mg/dL Normal 27-150 [facility] Comment on above: Performed By: #### C BCA, 70492-7, BMP, 37097-3, 81755-6 #### [facility] ([id number]) [address] [place] [address] 39864 PROTIME AND INRon 01-25-2024 INR Coag (PPP) [Relative time] 1.1 {INR} Normal 0.8-1.1 [facility] Comment on above: Performed By: #### P INR, 46206-6 #### [facility] ([id number]) [address] [place] [address] 37813 PT Coag (PPP) [Time] 13.1 s Normal 9.8-13.[address] [facility] Comment on above: Result Comment: NEW REFERENCE RANGE Performed By: #### P INR, 83004-9 #### [facility] ([id number]) [address] [place] [address] 82357 THYROID PROFILEon 01-25-2024 Free T4 [Mass/Vol] 1.41 ng/dL Normal 0.61-1.60 [facility] Comment on above: Performed By: #### C BCA, 41790-0, BMP, 37364-7, 28938-2 #### [facility] ([id number]) [address] [place] [address] 13143 TSH 0.22 uIU/mL Low 0.49-4.67 [facility] Comment on above: Performed By: #### C BCA, 23889-2, BMP, 86878-3, 40546-4 #### [facility] ([id number]) [address] [place] [address] 93436 aPTT Coag (PPP) [Time]on aPTT Coag (Bld) [Time] 36 s Normal 26-37 [facility] Comment on above: Result Comment: NEW REFERENCE RANGE Performed By: #### P INR, 16515-6 #### [facility] ([id number]) [address] [place] [address] CT CHEST WO CONTon CT CHEST WO CONT CT CHEST WO CONT CT CHEST WITHOUT CONTRAST HISTORY: Cough, lung nodules COMPARISON: 05/05/2023 TECHNIQUE: Routine CT chest without contrast. All CT scans at this facility use dose modulation, iterative reconstruction, and/or weight based dosing when appropriate to reduce radiation dose to as low as reasonably achievable. FINDINGS: Emphysema. Unchanged chronic lingular atelectasis/consolid ation with some subsegmental lingular bronchial occlusion. A few scattered noncalcified lung nodules are unchanged with the largest measuring 0.4 cm in the left lower lobe (axial image 105). Sequela of old granulomatous disease. Normal heart size. Nonobstructing right renal stones. No pleural or pericardial effusions. Normal heart size. The thoracic aorta is unremarkable. The central pulmonary arteries are unremarkable. Coronary artery calcifications. No enlarged thoracic lymph nodes. Visualized chest wall structures are unremarkable. No acute osseous abnormalities or aggressive osseous lesions. IMPRESSION: * Unchanged chronic area of atelectasis/consolid ation in the lingula with lingular subsegmental bronchial occlusion. * A few scattered noncalcified lung nodules are unchanged measuring up to 0.4 cm. No new lung nodules. * Emphysema. Finalized by Lalo Markham MD on 12/03/2023 11:02 AM Normal [facility] BASIC METABOLIC PANLon 10-19 Anion gap [Moles/Vol] 11 mmol/L Normal 5-15 [facility] Comment on above: Performed By: #### C BCA, 47155-1, BMP, 82386-4, 68780-9 #### [facility] ([id number]) [address] [place] [address] Calcium [Mass/Vol] 7.2 mg/dL Low 8.5-10.5 [facility] Comment on above: Performed By: #### C BCA, 18372-1, BMP, 85334-2, 36009-7 #### [facility] ([id number]) [address] [place] [address] 14046 Chloride [Moles/Vol] 99 mmol/L Normal 98-[address] [facility] Comment on above: Performed By: #### C BCA, 33435-5, BMP, 87616-0, 62584-6 #### [facility] ([id number]) [address] [place] [address] 89813 CO2 [Moles/Vol] 30 mmol/L Normal 22-32 [facility] Comment on above: Performed By: #### C BCA, 05487-5, BMP, 32028-1, 12799-1 #### [facility] ([id number]) [address] [place] [address] 70926 Creatinine [Mass/Vol] 1.00 mg/dL Normal 0.40-1.00 [facility] Comment on above: Result Comment: METH OD TRACEABLE TO IDMS STANDARD Performed By: #### C BCA, 52299-8, BMP, 88029-0, 46720-8 #### [facility] ([id number]) [address] [place] [address] 34460 GFR/1.73 sq M.predicted among non-blacks MDRD (S/P/Bld) [Vol rate/Area] 61 mL/min/{1.73_m2} Normal >59 [facility] Comment on above: Result Comment: Reported eGFR is based on the CKD-EPI 2020 equation that does not use a race coefficient. Performed By: #### C BCA, 37776-0, BMP, 05388-9, 98514-9 #### [facility] ([id number]) [address] [place] [address] 11237 Glucose [Mass/Vol] 150 mg/dL High 65-99 [facility] Comment on above: Performed By: #### C BCA, 01283-8, BMP, 12896-3, 09194-0 #### [facility] ([id number]) [address] [place] [address] 05528 Potassium [Moles/Vol] 4.2 mmol/L Normal 3.5-5.0 [facility] Comment on above: Result Comment: SPEC IMEN HEMOLYZED, RESULTS INCREASED Performed By: #### C BCA, 84467-2, BMP, 88659-2, 94210-8 #### [facility] ([id number]) [address] [place] [address] 78769 Sodium [Moles/Vol] 140 mmol/L Normal 134-146 [facility] Comment on above: Performed By: #### Neymar BCA, 93016-9, BMP, 48657-1, 28264-8 #### [facility] ([id number]) [address] [place] [address] 04734 Urea nitrogen [Mass/Vol] 14 mg/dL Normal 5-27 [facility] Comment on above: Performed By: #### C BCA, 65066-9, BMP, 65028-4, 37322-2 #### [facility] ([id number]) [address] [place] [address] 85081 CBC AND AUTO DIFFon 12-20 23 ABSOLUTE BASOPHIL 0.1 X10E9/L Normal 0.0-0.2 [facility] Comment on above: Performed By: #### Neymar BCA, 01626-8, BMP, 91367-0, 84175-9 #### [facility] ([id number]) [address] [place] [address] 44385 ABSOLUTE NEUTROPHIL 8.2 X10E9/L High 1.5-6.[address] [facility] Comment on above: Performed By: #### Neymar BCA, 16040-9, BMP, 65286-3, 01856-5 #### [facility] ([id number]) [address] [place] [address] 73062 Basophils/100 WBC (Bld) 0.9 % Normal [facility] Comment on above: Performed By: #### C JORGE, 74216-3, BMP, 49179-8, 76184-4 #### [facility] ([id number]) [address] [place] [address] 26825 Eosinophils (Bld) [#/Vol] 0.1 10*3/uL Normal 0.0-0.4 [facility] Comment on above: Performed By: #### Neymar PATEL, 12024-6, BMP, 17869-7, 54185-7 #### [facility] ([id number]) [address] [place] [address] 11412 Eosinophils/100 WBC (Bld) 1.0 % Normal [facility] Comment on above: Performed By: #### Neymar PATEL, 95706-7, BMP, 91329-7, 33907-0 #### [facility] ([id number]) [address] [place] [address] 59127 Erythrocyte distribution width (RBC) [Ratio] 13.6 % Normal 11.5-15.0 [facility] Comment on above: Performed By: #### Neymar PATEL, 24823-9, BMP, 63536-5, 73286-6 #### [facility] ([id number]) [address] [place] [address] 27977 Hematocrit (Bld) [Volume fraction] 42.1 % Normal 35-47 [facility] Comment on above: Performed By: #### Neymar PATEL, 14563-6, BMP, 12964-4, 01736-0 #### [facility] ([id number]) [address] [place] [address] 03440 Hemoglobin (Bld) [Mass/Vol] 14.4 g/dL Normal 11.7-15.5 [facility] Comment on above: Performed By: #### C BCA, 57327-2, BMP, 90227-6, 50761-2 #### [facility] ([id number]) [address] [place] [address] 81213 Lymphocytes (Bld) [#/Vol] 1.7 10*3/uL Normal 1.0-3.5 [facility] Comment on above: Performed By: #### Neymar BCA, 19809-1, BMP, 32685-5, 35535-1 #### [facility] ([id number]) [address] [place] [address] 16203 Lymphocytes/100 WBC (Bld) 16.0 % Normal [facility] Comment on above: Performed By: #### Neymar BCA, 01160-2, BMP, 34675-1, 50485-2 #### [facility] ([id number]) [address] [place] [address] 96379 MCH (RBC) [Entitic mass] 31.1 pg Normal 27-34 [facility] Comment on above: Performed By: #### Neymar BCA, 61759-9, BMP, 23791-9, 70500-6 #### [facility] ([id number]) [address] [place] [address] 38227 MCHC (RBC) [Mass/Vol] 34.1 g/dL Normal 32-36 [facility] Comment on above: Performed By: #### Neymar BCA, 41488-9, BMP, 66847-5, 89107-6 #### [facility] ([id number]) [address] [place] [address] 47030 MCV (RBC) [Entitic vol] 91 fL Normal 80-100 [facility] Comment on above: Performed By: #### Neymar BCA, 85548-8, BMP, 01466-8, 47801-4 #### [facility] ([id number]) [address] [place] [address] 49366 Monocytes (Bld) [#/Vol] 0.7 10*3/uL Normal 0-0.9 [facility] Comment on above: Performed By: #### Neymar PATEL, 26116-6, BMP, 89010-4, 47315-9 #### [facility] ([id number]) [address] [place] [address] 27250 Monocytes/100 WBC (Bld) 6.3 % Normal [facility] Comment on above: Performed By: #### Neymar PATEL, 56885-4, BMP, 58541-0, 69261-8 #### [facility] ([id number]) [address] [place] [address] 46023 Neutrophils/100 WBC (Bld) 75.8 % Normal [facility] Comment on above: Performed By: #### Neymar PATEL, 97179-6, BMP, 88327-1, 26213-6 #### [facility] ([id number]) [address] [place] [address] 81996 Platelet mean volume (Bld) [Entitic vol] 8.3 fL Normal 7-12 [facility] Comment on above: Performed By: #### Neymar PATEL, 41793-9, BMP, 35793-1, 96473-6 #### [facility] ([id number]) [address] [place] [address] 03190 Platelets (Bld) [#/Vol] 308 10*3/uL Normal 150-450 [facility] Comment on above: Performed By: #### Neymar PATEL, 56082-5, BMP, 13288-9, 27261-1 #### [facility] ([id number]) [address] [place] [address] 44351 RBC COUNT 4.63 X10E12/L Normal 3.80-5.20 [facility] Comment on above: Performed By: #### Neymar PATEL, 77033-8, BMP, 21461-3, 78547-0 #### [facility] ([id number]) [address] [place] [address] 74104 WBC (Bld) [#/Vol] 10.8 10*3/uL Normal 4.0-11.0 [facility] Comment on above: Performed By: #### C BCA, 64159-0, BMP, 81175-4, 65971-4 #### [facility] ([id number]) [address] [place] [address] 51967 Fibrin D-dimer DDU (PPP) [Ma ss/Vol]on 10-19-2023 D DIMER 206 ng/mL DDU Normal <255 [facility] Comment on above: Result Comment: Results <255 ng/mL DDU: The presence of a VTE can safely be excluded with a negative D-Dimer result and Wells score. A negative result doesn't exclude the possibility of DIC. The test be repeated along with other diagnostic tests if the patient's symptoms persist or worsen. [email or web address] Performed By: #### C BCA, 74064-4, BMP, 33506-4, 56309-9 #### [facility] ([id number]) [address] [place] [address] 80222 Natriuretic peptide B [Mass/ Vol]on 10-19-2023 Natriuretic peptide B (Bld) [Mass/Vol] 57 pg/mL Normal <100.0 [facility] Comment on above: Performed By: #### C BCA, 33171-1, BMP, 86406-3, 60090-4 #### [facility] ([id number]) [address] [place] [address] 92640 SARS/FLU A+B/RSV by NAAT/Mol ecularon 10-19-2023 SARS/FLU A+B/RSV by NAAT/Molecular FLU A PCR Negative (qualifier value) FLU B PCR Negative (qualifier value) RSV by PCR Negative (qualifier value) SARS CoV 2 Not detected (qualifier value) NOTE The Xpert Xpress SARS-CoV-2/Flu/RSV Plus test is a rapid, multiplexed real-time RT-PCR test intended for the simultaneous qualitative detection and differentiation of SARS-CoV-2, influenza A, influenza B and respiratory syncytial virus (RSV) viral RNA from individuals suspected of respiratory viral infection consistent with COVID-19 by their healthcare provider. This test has not been validated in asymptomatic patients. The Xpert Xpress SARS-CoV-2 test is intended for use by qualified and trained operators who are performing tests using either [employer] or [employer] systems and is limited to laboratories that meet the CLIA requirements to perform high and moderate complexity tests. The Xpert Xpress SARS-CoV-2/Flu/RSV Plus is only for use under the Food and Drug Administration's Emergency Use Authorization. Results are for the simultaneous detection and differentiation of SARS-CoV-2, influenza A, influenza B and RSV nucleic acids in clinical specimens. SARS-CoV-2, influenza A, influenza B and RSV RNA identified by this test are generally detectable in upper respiratory samples during the acute phase of infection. Positive results are indicative of the presence of the identified virus, but do not rule out bacterial infection or co-infection with other pathogens not detected by this test. Clinical correlation with patient history and other diagnostic information is necessary to determine patient infection status. The agent detected may not be the definite cause of disease. Negative results do not preclude SARS-CoV-2, influenza A, influenza B and RSV infection and should not be used as the sole basis for treatment or other patient management decisions. Negative results must be combined with clinical observations, patient history and epidemiological information. An Invalid result may occur with specimen-associated inhibition unable to be resolved with specimen repeat. Fact Sheet for Healthcare Providers: https://www.fda.gov/ media/899686/downloa d Fact Sheet for Patients: https://www.fda.gov/ media/799526/downloa d [facility] Comment on above: Performed By: #### C OVFLR #### [facility] ([id number]) [address] [place] [address], [place] [address] TROPONIN Ion 10-19-2023 Troponin I.cardiac [Mass/Vol] ng/mL Normal 0.00-0.04 [facility] Comment on above: Performed By: #### C BCA, 38069-6, [facility], 95184-5, 63632-0 #### [facility] ([id number]) [address], [place] [address] XR CHEST 1 VWon 10-19-2023 XR CHEST 1 VW XR CHEST 1 VW XR CHEST 1 VW 10/19/2023 1:04 PM INDICATION: cough and shortness of breath COMPARISON: XR chest 08/18/2023, CT chest 05/05/2023 TECHNIQUE: AP upright view of the chest obtained. FINDINGS: Lines/tubes: None. Lungs: No pneumothorax, pleural effusion. Persistent left lingular airspace opacity. Hyperinflation with chronic emphysematous changes. Cardiomediastinum: Unchanged. Bones: Partially visualized reverse left shoulder arthroplasty. IMPRESSION: * Persistent left lingular pulmonary opacity. Given chronicity, consider atypical sources of infection such as fungal or mycobacterial etiology. Approved by Resident: Stanislav Stein MD on 10/19/2023 1:38 PM Lance Bui have personally reviewed the image(s) and agree with and/or edited the report Finalized by Lance Wagner on 10/19/2023 2:00 PM Normal [facility] Patient Provided Health Data on 08-13-2023 Patient Provided Health Data [id number] #1.00OTGTIFF Normal [facility] Patient Handouton 07-24-2023 Patient Handout [id number] #1.00OTGTIFF [facility] CREATININEon 08-15-2022 Creatinine [Mass/Vol] 1.10 mg/dL Critically high 0.55-1.02 [facility] Comment on above: Performed By: #### C TRUPTI #### [facility] [address] [address] [address] Becky Gauthier EGFR-AF MACANESE =60 Normal >=60 [facility] Comment on above: Performed By: #### C TRUPTI #### [facility] [address] [place], [place] [address] Dr. Becky Gauthier EGFR-NON AF MACANESE 49 mL/min/1.73m2 Critically low >=[address] [facility] Comment on above: Performed By: #### C TRUPTI #### [facility] [address] [place], [place] [address] Dr. Becky Gauthier Basic Metabolic PanelOrdered By: Willie Fortune on 02-13-2021 Anion gap [Moles/Vol] 13 mmol/L 9 - 17 mmol/L [employer] Phone: Calcium [Mass/Vol] 7.7 mg/dL Low 8.6 - 10. 4 mg/dL [employer] Phone: Chloride [Moles/Vol] 105 mmol/L 98 - 10 7 mmol/L [employer] Phone: CO2 [Moles/Vol] 24 mmol/L 20 - 31 mmol/L [employer] Phone: Creatinine [Mass/Vol] 1.38 mg/dL High 0.50 - 0.90 mg/dL [employer] Phone: GFR 46 mL/min Low >60 [employer] Phone: GFR Non- 38 mL/min Low >60 [employer] Phone: GFR/1.73 sq M.predicted MDRD (S/P/Bld) [Vol rate/Area] [employer] Phone: Comment on above: Average GFR for 60-6 9 years old: 85 mL/min/1.73sq m Chronic Kidney Disease: <60 mL/min/1.73sq m Kidney failure: <15 mL/min/1.73sq m eGFR calculated using average adult body mass. Additional eGFR calculator available at: http://www.SoloStocks.Babble/multiple_crcl_2012.htm GFR/1.73 sq M.predicted MDRD (S/P/Bld) [Vol rate/Area] NOT REPORTED [employer] Phone: Glucose [Mass/Vol] 94 mg/dL 70 - 99 mg/dL [facility] [employer] Phone: Interpretation and review of laboratory results Abnormal [facility]: Potassium [Moles/Vol] 3.6 mmol/L Low 3.7 - 5.3 mmol/L [facility]: Sodium [Moles/Vol] 142 mmol/L 135 - 144 mmol/L [facility]: Urea nitrogen (BldV) [Mass/Vol] 16 mg/dL 8 - 23 mg/dL [facility] Phone: Urea nitrogen/Creatinine (Bld) [Mass ratio] 12 [facility] Phone: Basic Metabolic Profon 02-13 (cont.) Normal [facility] Comment on above: Result Comment: Aver age GFR for 60-69 years old: 85 mL/min/1.73sq m Chronic Kidney Disease: <60 mL/min/1.73sq m Kidney failure: <15 mL/min/1.73sq m eGFR calculated using average adult body mass. Additional eGFR calculator available at: http://www.[employer]/multiple_crcl_2012.htm Performed By: #### B MP #### [facility] [address] [facility] [place], [place] [id number] [employer] Designer: Oscar Mane MD Anion gap [Moles/Vol] 13 mmol/L Normal 9-17 [facility] Comment on above: Performed By: #### B MP #### [facility] [address] [facility] [place] [address] [employer] Designer: Oscar Mane MD BUN/CRE Ratio 12 Normal 9-20 [facility] Comment on above: Performed By: #### B MP #### [facility] [address] [place] [address] [employer] Designer: Oscar Mane MD Calcium [Mass/Vol] 7.7 mg/dL Low 8.6-10.4 [facility] Comment on above: Performed By: #### B MP #### [facility] [address] [place] [address] [employer] Designer: Oscar Mane MD Chloride [Moles/Vol] 105 mmol/L Normal 98-107 [facility] Comment on above: Performed By: #### B MP #### [facility] [address] [place] [address] [employer] Designer: Oscar Mane MD CO2 [Moles/Vol] 24 mmol/L Normal 20-31 [facility] Comment on above: Performed By: #### B MP #### [facility] [address] [place] [address] [employer] Designer: Oscar Mane MD Creatinine [Mass/Vol] 1.38 mg/dL High 0.50-0.90 [facility] Comment on above: Performed By: #### B MP #### [facility] [address] [place] [address] [employer] Designer: Oscar Mane MD GFR, Amer 46 mL/min Low >60 [facility] Comment on above: Performed By: #### B MP #### [facility] [address] [place] [address] [employer] Designer: Oscar Mane MD GFR,non Amer 38 mL/min Low >60 [facility] Comment on above: Performed By: #### B MP #### [facility] [address] [place] [address] [employer] Designer: Oscar Mane MD Glucose [Mass/Vol] 94 mg/dL Normal 70-99 [facility] Comment on above: Performed By: #### B MP #### [facility] [address] [facility] [place] [address] [employer] Designer: Oscar Mane MD Potassium [Moles/Vol] 3.6 mmol/L Low 3.7-5.3 [facility] Comment on above: Performed By: #### B MP #### [facility] [address] [place] [address] [employer] Designer: Oscar Mane MD Sodium [Moles/Vol] 142 mmol/L Normal 135-144 [facility] Comment on above: Performed By: #### B MP #### [facility] [address] [place] [address] [employer] Designer: Oscar Mane MD Urea nitrogen [Mass/Vol] 16 mg/dL Normal 8-23 [facility] Comment on above: Performed By: #### B MP #### [facility] [facility] [place] [address] [employer] Designer: Oscar Mane MD Staging: NOT REPORTED Normal [facility] Comment on above: Performed By: #### B MP #### [facility] [place] [address] [employer] Designer: Oscar Mane MD EKG 12 leadOrdered By: Willie Fortune on 02-13-2021 Atrial Rate 69 BPM [employer] Work Phone: P Plains 86 degrees [employer] Phone: P-R Interval 134 ms [employer] Phone: Q-T Interval 444 ms [employer] Phone: QRS Duration 84 ms [employer] Phone: QTc Calculation (Bazett) 475 ms [employer] Phone: R Plains 78 degrees [employer] Phone: T Plains 135 degrees [employer] Phone: Ventricular Rate 69 BPM [employer] Phone: Sinus rhythm with marked sinus arrhythmia ST & T wave abnormality, consider anterolateral ischemia Prolonged QT Abnormal ECG No previous ECGs available [employer] Phone: [place], Mhpn Incoming Ekg Results From [employer] - 02/13/2021 8:17 AM EDT Sinus rhythm with marked sinus arrhythmia ST & T wave abnormality, consider anterolateral ischemia Prolonged QT Abnormal ECG No previous ECGs available [employer] Phone: BUN + Creatinineon 1 (cont.) Normal [facility] Comment on above: Result Comment: Aver age GFR for 60-69 years old: 85 mL/min/1.73sq m Chronic Kidney Disease: <60 mL/min/1.73sq m Kidney failure: <15 mL/min/1.73sq m eGFR calculated using average adult body mass. Additional eGFR calculator available at: http://www.Car[employer]/multiple_crcl_2012.htm Performed By: #### B UNCRT #### [facility] [address] [place] [address] [employer] Designer: Oscar Mane MD Creatinine [Mass/Vol] 0.92 mg/dL High 0.50-0.90 [facility] Comment on above: Performed By: #### B UNCRT #### [facility] [address] [place] [address] [employer] Designer: Oscar Mane MD GFR, Amer >60 Normal >60 [facility] Comment on above: Performed By: #### B UNCRT #### [facility] [address] [place] [address] [employer] Designer: Oscar Mane MD GFR,non Amer >60 Normal >60 [facility] Comment on above: Performed By: #### B UNCRT #### [facility] [address] [facility] [place] [address] [employer] Designer: Oscar Mane MD Urea nitrogen [Mass/Vol] 14 mg/dL Normal 8-23 [facility] Comment on above: Performed By: #### B UNCRT #### [facility] [address] [facility] [place] [address] [employer] Designer: Oscar Mane MD Staging: NOT REPORTED Normal [facility] Comment on above: Performed By: #### B UNCRT #### [facility] [address] [facility] [place] [address] [employer] Designer: Oscar Mane MD BUN + CreatinineOrdered By: Willie Fortune on 02-12-2021 Creatinine [Mass/Vol] 0.92 mg/dL High 0.50 - 0.90 mg/dL [employer] Phone: GFR >60 >60 mL/min [facility] [employer] Phone: GFR Non- >60 >60 mL/min [employer] Phone: GFR/1.73 sq M.predicted MDRD (S/P/Bld) [Vol rate/Area] [employer] Phone: Comment on above: Average GFR for 60-6 9 years old: 85 mL/min/1.73sq m Chronic Kidney Disease: <60 mL/min/1.73sq m Kidney failure: <15 mL/min/1.73sq m eGFR calculated using average adult body mass. Additional eGFR calculator available at: http://www.globalrp.com/multiple_crcl_2012.htm GFR/1.73 sq M.predicted MDRD (S/P/Bld) [Vol rate/Area] NOT REPORTED [employer] Phone: Interpretation and review of laboratory results Abnormal [employer] Phone: Urea nitrogen (BldV) [Mass/Vol] 14 mg/dL 8 - 23 mg/dL [employer] Phone: Catheterization and angiogra phy procedure details panelOrdered By: Willie Fortune on 02-12-2021 Cardiac Diagnostic + PCI Report Demographics Patient AMANDA Sears Date of Study 02/12/2021 Name Date of 1950 Gender Female Age 70 year(s) Race Room [id number]^FIDEL^WILLIE Height: 67 inch, 170.18 cm Number Corporate [id number] Weight: 132 pounds, 59.9 kg ID # Patient [id number] BSA: 1.69 m^2 BMI: 20.67 Acct # kg/m^2 MR # [id number] Performing Physician Willie Fortune Referring Physician # Assisting Physician Additional Comments H&P reviewed and patient examined by performing physician prior to the procedure on 02/12/2021 at 1315 No changes noted. If changes, see note below. ASA Classification II / Mallampati 2 : per Physician. Procedure Procedure Type: Diagnostic procedure: Lt Heart, Coronary Angio, LVgram PCI procedure: PTCA / Drug Eluting Stent:, RCA and / or branches Complications: - No complication Indications: - Abnormal Cardiolyte/Myoview - Angina - Uncontrolled by meds Conclusions Procedure Summary Multi-vessel Coronary Artery Disease. Normal LV contractility. Successful PCI / Drug Eluting Stent of the ostial Posterolateral Coronary Artery. Recommendations 1. DAPT with ASA and plavix for 1 month then Plavix and eliquis 2. Medical therapy 3. risk factor modification Signature ---- ---- Angiographic Findings Cardiac Arteries and Lesion Findings LMCA: Normal 0% stenosis. LAD: Mild irregularities 30-40%.Mid LAD has 50-60% stenosis after Diagonal #1. IFR measured 0.92. First diagonal branch has mild luminal irregularities. Lesion on Mid LAD: Mid subsection.60% stenosis 15 mm length. Pre procedure ERLIN III flow was noted. Good runoff was present. Devices used - Verrata Pressure Wire .014. Number of passes: 1. LCx: Mild irregularities 20-30%.The proximal circumflex has a 50% stenosis and the IFR was 0.97. The large OMB has minimal luminal irregularities Lesion on Mid CX: Proximal subsection.60% stenosis 12 mm length. Pre procedure ERLIN III flow was noted. Good runoff was present. Devices used - [employer]ata Pressure Wire .014. Number of passes: 1. RCA: Mild irregularities 30-40%.The proximal and mid RCA is mild to moderately calcified. The PDA is normal. The ostium of the PL branch has a 90% stenosis. Lesion on 1st RPL: Ostial.90% stenosis 12 mm length reduced to 0%. Pre procedure ERLIN III flow was noted. Post Procedure ERLIN III flow was present. Good runoff was present. The lesion was diagnosed as Low Risk (A). Devices used - Whisper Wire 190 cm. Number of passes: 1. - Trek Balloon 2.5mm x 12mm. 1 inflation(s) to a max pressure of: 16 tomasa. - Xience Connie 3.25 x 18 JANI. 1 inflation(s) to a max pressure of: 15 tomasa. - Xience Connie 3.25 x 12 JANI. 1 inflation(s) to a max pressure of: 12 tomasa. Valves +------+ +------ ----+ + !Valve !Stenosis !Insufficiency !Comments ! +------+ +------ ----+ + !Mitral! !No insufficiency ! ! +------+ +------ ----+ + !Aortic!No stenosis ! ! ! +------+ +------ ----+ + Coronary Tree Dominance: Right LV Analysis LV function assessed as:Normal. Ejection Fraction + +---+ !Method !EF%! + +---+ !LV gram !65 ! + +---+ LV Segment Contractility 1 - Normal 3 - Mild 5 - Severe 7 - Dyskinesis hypokinesis hypokinesis 2 - 4 - Moderate 6 - Akinesis 8 - Aneurysm Hypokinesis hypokinesis Procedure Data Procedure Start Time: 02/12/2021 13:40. Procedure End Time: 02/12/2021 14:21. The procedure was explained in detail to the patient. Risks, complications and alternative treatments were reviewed. Written consent was obtained. Diagnostic Cath Status: Elective Interventional Cath Status: Elective Entry Locations - Retrograde Percutaneous access was performed through the Right Radial artery. A 6 Fr sheath was inserted. Hemostasis was successfully obtained using TR Band. Procedure Medications: - Fentanyl I.V. 50 mcg. - Lidocaine HCl 1% 10mg/ml S.Q. 5 ml. - Verapamil I.A. 4 mg. - Nitroglycerin I (more content not included)... [employer] Phone: Roshan, Mhpn Incoming Cardio Results From [facility] - 02/12/2021 2:56 PM EDT Cardiac Diagnostic + PCI Report Demographics Patient AMANDA Sears Date of Study 02/12/2021 Name Date of 1950 Gender Female Age 70 year(s) Race Room [id number]^YVES Height: 67 inch, 170.18 cm Number Corporate [id number] Weight: 132 pounds, 59.9 kg ID # Patient [id number] BSA: 1.69 m^2 BMI: 20.67 Acct # kg/m^2 MR # [id number] Performing Physician Willie Fortune Referring Physician # Assisting Physician Additional Comments H&P reviewed and patient examined by performing physician prior to the procedure on 02/12/2021 at 1315 No changes noted. If changes, see note below. ASA Classification II / Mallampati 2 : per Physician. Procedure Procedure Type: Diagnostic procedure: Lt Heart, Coronary Angio, LVgram PCI procedure: PTCA / Drug Eluting Stent:, RCA and / or branches Complications: - No complication Indications: - Abnormal Cardiolyte/Myoview - Angina - Uncontrolled by meds Conclusions Procedure Summary Multi-vessel Coronary Artery Disease. Normal LV contractility. Successful PCI / Drug Eluting Stent of the ostial Posterolateral Coronary Artery. Recommendations 1. DAPT with ASA and plavix for 1 month then Plavix and eliquis 2. Medical therapy 3. risk factor modification Signature ---- ---- Angiographic Findings Cardiac Arteries and Lesion Findings LMCA: Normal 0% stenosis. LAD: Mild irregularities 30-40%.Mid LAD has 50-60% stenosis after Diagonal #1. IFR measured 0.92. First diagonal branch has mild luminal irregularities. Lesion on Mid LAD: Mid subsection.60% stenosis 15 mm length. Pre procedure ERLIN III flow was noted. Good runoff was present. Devices used - Verrata Pressure Wire .014. Number of passes: 1. LCx: Mild irregularities 20-30%.The proximal circumflex has a 50% stenosis and the IFR was 0.97. The large OMB has minimal luminal irregularities Lesion on Mid CX: Proximal subsection.60% stenosis 12 mm length. Pre procedure ERLIN III flow was noted. Good runoff was present. Devices used - Verrata Pressure Wire .014. Number of passes: 1. RCA: Mild irregularities 30-40%.The proximal and mid RCA is mild to moderately calcified. The PDA is normal. The ostium of the PL branch has a 90% stenosis. Lesion on 1st RPL: Ostial.90% stenosis 12 mm length reduced to 0%. Pre procedure ERLIN III flow was noted. Post Procedure ERLIN III flow was present. Good runoff was present. The lesion was diagnosed as Low Risk (A). Devices used - Whisper Wire 190 cm. Number of passes: 1. - Trek Balloon 2.5mm x 12mm. 1 inflation(s) to a max pressure of: 16 tomasa. - Xience Connie 3.25 x 18 JANI. 1 inflation(s) to a max pressure of: 15 tomasa. - Xience Connie 3.25 x 12 JANI. 1 inflation(s) to a max pressure of: 12 tomasa. Valves +------+ +------ ----+ + !Valve !Stenosis !Insufficiency !Comments ! +------+ +------ ----+ + !Mitral! !No insufficiency ! ! +------+ +------ ----+ + !Aortic!No stenosis ! ! ! +------+ +------ ----+ + Coronary Tree Dominance: Right LV Analysis LV function assessed as:Normal. Ejection Fraction + +--- + !Method !EF%! + +--- + !LV gram !65 ! + +--- + LV Segment Contractility 1 - Normal 3 - Mild 5 - Severe 7 - Dyskinesis hypokinesis hypokinesis 2 - 4 - Moderate 6 - Akinesis 8 - Aneurysm Hypokinesis hypokinesis Procedure Data Procedure Start Time: 02/12/2021 13:40. Procedure End Time: 02/12/2021 14:21. The procedure was explained in detail to the patient. Risks, complications and alternative treatments were reviewed. Written consent was obtained. Diagnostic Cath Status: Elective Interventional Cath Status: Elective Entry Locations - Retrograde Percutaneous access was performed through the Right Radial artery. A 6 Fr sheath was inserted. Hemostasis was successfully obtained using TR Band. Procedure Medications: - Fentanyl I.V. 50 mcg. - Lidocaine HCl 1% 10mg/ml S.Q. 5 ml. - Verapamil I.A. 4 mg. - Nitroglycerin I.A. 400 mcg. - Versed 1 mg. - Fentanyl I.V. 50 mcg. - Heparin I.V. bolus 4000 units. - Heparin (more content not included)... [employer] Phone: POC Glucose FingerstickOrd ed By: Willie Fortune on 02-12-2021 Glucose [Mass/Vol] 89 mg/dL 65 - 105 mg/dL [employer] Phone: Glucose [Mass/Vol] 79 mg/dL 65 - 105 mg/dL [employer] Phone: Glucose [Mass/Vol] 100 mg/dL 65 - 105 mg/dL [facility]: Vital Signs Date Time Vital Sign Value Performing Clinician Facility 05-17-2024 09:27-0400 Body height 170.18 cm DO [employer] Work Phone: [facility] 05-17-2024 09:27-0400 Body mass index (BMI) [Ratio] 19.1 kg/m2 DO [employer] Work Phone: [facility] 05-17-2024 09:27-0400 Body temperature 97.1 [degF] DO [employer] Work Phone: [facility] 05-17-2024 09:27-0400 Body weight 55.33 kg DO [employer] Work Phone: [facility] 05-17-2024 09:27-0400 Diastolic blood pressure 73 mm[Hg] DO Miguel [employer] Work Phone: [facility] 05-17-2024 09:27-0400 Heart rate 87 /min DO [employer] Work Phone: [facility] 05-17-2024 09:27-0400 Respiratory rate 16 /min DO [employer] Work Phone: [facility] 05-17-2024 09:27-0400 SaO2% (BldA) [Mass fraction] 99 % DO Miguel [employer] Work Phone: [facility] 05-17-2024 09:27-0400 Systolic blood pressure 120 mm[Hg] DO [employer] Work Phone: [facility] 03-15-2024 10:00-0400 Body temperature 97.6 [degF] DO Miguel [employer] Work Phone: [facility] 03-15-2024 10:00-0400 Body weight 52.61 kg DO [employer] Work Phone: [facility] 03-15-2024 10:00-0400 Diastolic blood pressure 85 mm[Hg] DO Miguel [employer] Work Phone: [facility] 03-15-2024 10:00-0400 Heart rate 96 /min DO Miguel [employer] Work Phone: [facility] 03-15-2024 10:00-0400 Respiratory rate 20 /min DO [employer] Work Phone: [facility] 03-15-2024 10:00-0400 SaO2% (BldA) [Mass fraction] 64 % DO Miguel [employer] Work Phone: [facility] 03-15-2024 10:00-0400 Systolic blood pressure 136 mm[Hg] DO Miguel [employer] Work Phone: [facility] 02-24-2024 15:03-0400 Body height 170.18 cm DO [employer] Work Phone: [facility] 02-24-2024 14:33-0400 Body height 170.18 cm DO [employer] Work Phone: [facility] 02-24-2024 14:33-0400 Body mass index (BMI) [Ratio] 18.4 kg/m2 DO [employer] Work Phone: [facility] 02-24-2024 14:33-0400 Body weight 53.52 kg DO Miguel [facility] Work Phone: [facility] 02-24-2024 14:33-0400 Diastolic blood pressure 75 mm[Hg] DO Miguel [employer] Work Phone: [facility] 02-24-2024 14:33-0400 Heart rate 73 /min DO Miguel [facility] Work Phone: [facility] 02-24-2024 14:33-0400 Respiratory rate 18 /min DO Miguel House Work Phone: [facility] 02-24-2024 14:33-0400 SaO2% (BldA) [Mass fraction] 97 % DO Miguel House Work Phone: [facility] 02-24-2024 14:33-0400 Systolic blood pressure 123 mm[Hg] DO Miguel Brock Work Phone: [facility] 01-07-2024 11:27-0400 Body height 170.2 cm Eileen Fonseca DO Work Phone: [facility] [employer] 01-07-2024 11:27-0400 Body mass index (BMI) [Ratio] 18.14 kg/m2 Eileen Fonseca DO Work Phone: [facility] [employer] 01-07-2024 11:27-0400 Body weight 52.53 kg E[facility] 01-07-2024 11:27-0400 Diastolic blood pressure 65 mm[Hg] Eileen [facility]onseca DO [facility] 01-07-2024 11:27-0400 Heart rate 71 /min Eileen [facility]onseca DO [facility] 01-07-2024 11:27-0400 SaO2% (BldA) [Mass fraction] 93 % Eileen Fonseca DO [facility] 01-07-2024 11:27-0400 Systolic blood pressure 109 mm[Hg] Eileen Fonseca DO [facility] 02-13-2021 11:04-0400 Body temperature 98.29 [degF] Willie Fortune MD Work Phone: [employer] Work Phone: 02-13-2021 11:04-0400 Diastolic blood pressure 61 mm[Hg] Willie Fortune MD Work Phone: [employer] Work Phone: 02-13-2021 11:04-0400 Heart rate 81 /min Willie Fortune MD Work Phone: [employer] Work Phone: 02-13-2021 11:04-0400 Respiratory rate 20 /min Willie Fortune MD Work Phone: [employer] Work Phone: 02-13-2021 11:04-0400 SaO2% (BldA) [Mass fraction] 93 % Willie Fortune MD Work Phone: [employer] Work Phone: 02-13-2021 11:04-0400 Systolic blood pressure 119 mm[Hg] Willie Fortune MD Work Phone: [employer] Work Phone: 02-12-2021 11:29-0400 Body height 170.2 cm Willie Fortune MD Work Phone: [employer] Work Phone: 02-12-2021 11:29-0400 Body mass index (BMI) [Ratio] 20.75 kg/m2 Willie Fortune MD Work Phone: [employer] Work Phone: 02-12-2021 11:29-0400 Body weight 60.1 kg Willie Fortune MD Work Phone: [employer] Work Phone: Encounters Encounter Date Encounter Type Care Provider Facility Start: 05-17-2024 End: 05-17-2024 ambulatory DO Miguel Brock Work Phone: [facility] Work Phone: Start: 05-17-2024 End: 05-17-2024 Patient encounter procedure DO Miguel House Work Phone: [facility] Work Phone: Start: 05-17-2024 Registered Recurring DO Saad sears House Work Phone: [facility] Work Phone: Start: 05-05-2024 End: 05-05-2024 ambulatory [facility] Start: 05-02-2024 Non-patient / Non-visit DO Arielle rles House Work Phone: [facility] Work Phone: Start: 04-25-2024 End: 04-28-2024 Emergency department patient visit SYL Hernández CHERIC [facility] Start: 04-25-2024 End: 04-27-2024 ambulatory [facility] Start: 04-20-2024 End: 04-20-2024 ambulatory [facility] Start: 04-20-2024 End: 04-21-2024 ambulatory [facility] Start: 04-19-2024 Non-patient / Non-visit DO Arielle rles House Work Phone: [facility] Work Phone: Start: 04-18-2024 End: 04-19-2024 Emergency department patient visit MONICA MANUEL [facility] Start: 04-12-2024 Non-patient / Non-visit DO Arielle rles House Work Phone: [facility] Work Phone: Start: 04-04-2024 Non-patient / Non-visit DO Arielle rles House Work Phone: [facility] Work Phone: Start: 03-23-2024 Non-patient / Non-visit DO Arielle rles House Work Phone: [facility] Work Phone: Start: 03-22-2024 End: 03-22-2024 [facility] Start: 03-15-2024 Non-patient / Non-visit DO Arielle rles House Work Phone: [facility] Work Phone: Start: 03-15-2024 Registered Recurring DO Saad s House [facility] Work [facility]: Start: 03-15-2024 End: 03-15-2024 ambulatory DO Miguel Brock Work Phone: [facility] Work Phone: Start: 03-15-2024 End: 03-15-2024 Patient encounter procedure DO Miguel Brock Work Phone: [facility] Work Phone: Start: 03-14-2024 End: 03-14-2024 ambulatory MIGUEL P WHEELWRIGHT Facility:[facility] Start: 03-03-2024 End: 03-03-2024 ambulatory [facility] Start: 03-02-2024 End: 03-02-2024 Evaluation and management of inpatient [facility] Start: 03-01-2024 End: 03-02-2024 Evaluation and management of inpatient [facility] Start: 02-26-2024 End: 02-26-2024 ambulatory [facility] Start: 02-24-2024 ambulatory Urszula Najerai lity:[facility] Start: 02-24-2024 End: 02-24-2024 Patient encounter procedure DO Miguel Brock Work Phone: [facility] Work Phone: Start: 02-23-2024 End: 02-23-2024 ambulatory MIGUEL [facility] Start: 02-12-2024 End: 02-12-2024 ambulatory [facility] Start: 02-05-2024 End: 02-24-2024 ambulatory MIGUEL P [facility] Start: 02-01-2024 End: 02-02-2024 Emergency department patient visit FATEMEH [facility] Start: 01-28-2024 Orders Only Eileen Dover Elsdonovan john DO Work Phone: [facility] Start: 01-27-2024 End: 01-27-2024 Evaluation and management of inpatient FELIX BURNS [facility] Start: 01-26-2024 End: 01-27-2024 Evaluation and management of inpatient [facility] Start: 01-25-2024 End: 01-25-2024 ambulatory [facility] Start: 01-25-2024 Encounter for other preprocedural examination MIGUEL BROCK [facility] Start: 01-07-2024 Documentation procedure Beulah owens RN [facility] Start: 01-07-2024 End: 01-07-2024 Office outpatient visit 25 minutes Eileen M Raymundo DO Work Phone: [facility] Comment on above: Moderate COPD (chron ic obstructive pulmonary disease) (CMS- HCC) (Primary Dx); Pulmonary nodule; 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[facility]); Dyspnea on exertion; Abnormal CT of the chest; Tobacco abuse Start: 01-07-2024 End: 01-07-2024 ambulatory [facility] Start: 12-31-2023 Telephone encounter Eileen Hernández damir DO Work Phone: [facility] Start: 12-07-2023 Telephone encounter [facility] Start: 12-02-2023 End: 12-02-2023 ambulatory [facility] Start: 11-18-2023 End: 11-18-2023 ambulatory Renzo Gilliland MD Facility:[facility] Start: 11-12-2023 End: 11-12-2023 ambulatory MIGUEL BROCK Facility:[facility] Start: 10-21-2023 Telephone encounter [facility] Start: 10-19-2023 End: 10-20-2023 Emergency department patient visit CHAUNCEY WILLIAMSON [facility] Start: 10-19-2023 End: 10-20-2023 Emergency department patient visit CHAUNCEY WILLIAMSON [facility] Start: 08-10-2023 End: 08-10-2023 ambulatory MIGUEL BROCK Facility:[facility] Start: 07-23-2023 End: 07-23-2023 ambulatory MIGUEL BROCK Facility:[facility] Start: 02-17-[address] MIGUEL BROCK Facili ty:[facility] Start: 08-15-2022 End: 08-16-[address] MIGUEL BROCK Facility:[facility] Start: 02-12-2021 End: 02-13-2021 ambulatory WILLIE FORTUNE [facility] Start: 02-12-2021 End: 02-13-2021 Subsequent hospital visit by physician Willie Fortuen MD Work Phone: [facility] Comment on above: Abnormal stress test (Primary Dx) Procedures Date Procedure Procedure Detail Performing Clinician Start: 01-07-2024 Follow-up visit Follow-up EILEEN FONSECA Start: 02-04-2023 Microalbumin [Mass/volume] in Urine by Test strip Angie Gunn LPN Start: 12-11-2021 Colonoscopy Angie Gunn LPN Start: 06-05-2021 Adult depression screening assessment Angie Gunn LPN Start: 02-28-2021 History of placement of stent for coronary artery disease Status post insertion of drug eluting coronary artery stent Angie Gunn LPN Start: 02-13-2021 Basic metabolic panel calcium total Willie Fortune MD Work Phone: Start: 02-12-2021 Glucose blood reagent strip Willie Fortune MD Work Phone: Start: 02-12-2021 Ecg routine ecg w/least 12 lds w/i&r Willie Fortune MD Work Phone: Start: 02-12-2021 Glucose blood reagent strip Willie Fortune MD Work Phone: Start: 02-12-2021 End: 02-12-2021 Cardiac catheterization Willie Fortune MD Work Phone: Start: 02-12-2021 End: 02-12-2021 Glucose blood reagent strip Willie Fortune MD Work Phone: Start: 08-23-2020 History of thyroidectomy S/P total thyroidectomy Angie dutton LPN Plan of Treatment Date Care Activity Detail Author Start: 06-04-2032 DTaP,Tdap and Td Vaccines (3 - Td or Tdap) DTaP,Tdap and Td Vaccines (3 - Td or Tdap) [facility] Start: 09-11-2028 DTaP/Tdap/Td vaccine (2 - Td) DTaP/Tdap/Td vaccine (2 - Td) [facility] Work Phone: Start: 12-11-2026 Screening for malign ant neoplasm of colon Colonoscopy [facility] Start: 01-25-2025 Tobacco Screening Tobacco Screening [facility] Start: 01-06-2025 Adult BMI Screening Adult BMI Screen ing [facility] Start: 01-06-2025 Tobacco Screening Tobacco Screening [facility] Start: 10-19-2024 Adult BMI Screening Adult BMI Screen ing [facility] Start: 10-19-2024 Tobacco Screening Tobacco Screening [facility] Start: 06-26-2024 Influenza vaccination Influenza Vacc ine [facility] Start: 03-03-2024 End: 03-03-2024 Patient encounter procedure 03/03/2024 2:00 PM EDT Office Visit [facility] [address] [place] [address] [place] [address] [place] [address] [facility] Start: 02-24-2024 Patient referral [facility] Work Phone: Start: 02-05-2024 Urine screening for protein Urine Microalbumin [facility] Start: 01-26-2024 End: 01-26-2024 Admission to same day surgery center 01/26/2024 12:00 PM EDT - 01/26/2024 1:00 PM EDT Surgery [facility] [address] [place] [phone] Eileen Fonseca, DO [address] [address] BRONCHOSCOPY ALVEOLAR LAVAGE [37812 (CPT )] [facility] Comment on above: BRONCHOSCOPY ALVEOLA R LAVAGE [90187 (CPT )] Start: 01-26-2024 End: 01-26-2024 [facility] BRONCHOSCOPY ALVEOLAR LAVAGE LANGULAR OBSTRUCTION AND CHRONIC COUGH 01/26/2024 12:00 PM EDT [facility] Start: 01-26-2024 Subsequent hospital visit by physician 01/26/2024 12:00 PM EDT Hospital Encounter [facility] [address] [place] [phone] Eileen Fonseca, DO [address] [address] [facility] Start: 01-19-2024 End: 01-19-2024 Admission to establishment 01/19/2024 10:00 AM EDT Support Visit [facility] [address] [address] [facility] Start: 01-07-2024 End: 01-07-2024 Patient encounter procedure 01/07/2024 11:30 AM EDT Office Visit [facility] [address] [place] [id number] [place] [address] [place] [address] [facility] Start: 12-24-2023 End: 12-24-2023 Patient encounter procedure 12/24/2023 3:45 PM EST Office Visit [facility] [address] [place] [address] Eileen Fonseca, DO [address] [place] [address] [facility] Start: 06-26-2023 COVID-19 Vaccine ( season) COVID-19 Vaccine ( season) [facility] Start: 06-05-2022 Depression Screening [facility] Start: 06-26-2021 Influenza vaccination Flu vacc ine (Season Ended) [employer] Phone: Start: 02-08-2021 Annual Wellness Visi t (AWV) Annual Wellness Visit (AWV) [employer] Phone: Start: 11-10-2020 Administration of varicella zoster vaccine Zoster (Shingles) Vaccine (2 of 2) [employer] Start: 2017 Fall Risk Screening Fall Risk Screen ing [employer] Start: 2017 Pneumococcal 65+ yea rs Vaccine (2 of 2 - PPSV23) Pneumococcal 65+ years Vaccine (2 of 2 - PPSV23) [employer] Phone: Start: 2007 Screening for osteoporosis DEXA (modify frequency per FRAX score) [employer] Phone: Start: 2002 Screening for malign ant neoplasm of breast Breast cancer screen [employer] Phone: Start: 2002 Screening for malign ant neoplasm of colon Colon cancer screen colonoscopy [employer] Phone: Start: 2002 Shingles Vaccine (1 of 2) Shingles Vaccine (1 of 2) [employer] Phone: Start: 1970 Adult BMI Follow Up Plan Adult BMI Follow Up Plan [employer] Start: 1970 Diabetic foot examination [facility]abetic Foot Exam [facility] Start: 1968 COVID-19 Vaccine (1) COVID-19 Vaccin e (1) [employer] Phone: Start: 1962 Lipid panel [facility] screen [facility] Work Phone: Start: 1952 Glaucoma screening Diabetic Op [facility]thalmology Exam [facility] Start: 1952 Hepatitis C screening Hepatitis C sc reen [employer] Work Phone: Start: 1952 Medicare Annual Well ness Visit Medicare Annual Wellness Visit [facility] Start: 1952 Tobacco Counseling Tobacco Counselin g [employer] CT Chest WO contrast [facility] End: 02-12-2021 Glucose [Mass/volume] in Serum or Plasma POCT Glucose Point of Care Testing Routine One Time for 1 Occurrences starting 02/12/2021 until 02/12/2021 [employer] Phone: Comment on above: One Time for 1 Occur rences starting 02/12/2021 until 02/12/2021 End: 01-06-2025 Home O2 eval (desaturation screen) Home O2 eval (desaturation screen) Respiratory Care Routine Dyspnea on exertion 1 Occurrences starting 01/07/2024 until 01/06/2025 [employer] Work Phone: Comment on above: 1 Occurrences starti ng 01/07/2024 until 01/06/2025 Oxygen therapy [[facility] Data Set] Initiate Oxygen Therapy Protocol Respiratory Care Routine Daily until discontinued starting 02/12/2021 [employer] Work Phone: Comment on above: Daily until disconti nued starting 02/12/2021 Patient referral [facility] Work Phone: [facility] Immunizations Immunization Date Immunization Notes Care Provider Marium chatman 08-10-2023 influenza virus vaccine, unspecified formulation Eileen Fonseca DO Work Phone: [facility] 06-04-2022 tetanus toxoid, redu anthony diphtheria toxoid, and acellular pertussis vaccine, adsorbed Angiejudy Gunn LPN [facility] 09-15-2020 zoster vaccine recombinant Angie Luis [employer] [facility] 09-15-2020 zoster vaccine, unspecified formulation Angie Luis [employer] [facility] 08-10-2020 pneumococcal conjuga te vaccine, 13 valent Angie Luis [employer] [facility] 09-23-2018 influenza, injectabl e, quadrivalent, preservative free Angie Luis [employer] [facility] 09-11-2018 tetanus toxoid, redu anthony diphtheria toxoid, and acellular pertussis vaccine, adsorbed [facility] 11-01-2015 influenza, seasonal, injectable, preservative free Angie Luis [employer] [facility] 09-13-2009 novel [id number], preservative-free, injectable Angie Luis [employer] [facility] Payers Date Payer Category Payer Self-pay 2020 [id number] 2020-Present [phone] [address] [place] [address] [id number] 2020 Medicaid [id number] 2019 Private Health Insurance [id number] 2019 Medicare [employer] MEDICARE UHC MEDICARE DUAL COMPLETE [id number] 2019-Present [phone] [address] [address] [place] [address] [id number] [id number] 2017 Medicare [id number] 1.2.840.850964.1.13.239. 2.7.3.925657.315 1952 Unknown [id number] 2.16.840.1.544495.3.579. 2.177 1952 Unknown [id number] 2.16.840.1.361335.3.579. 2.593 1952 Unknown [id number] 2.16.840.1.612225.3.579. 2.593 1952 Unknown [id number] 2.16.840.1.548928.3.579. 2.1285 1952 Unknown [id number] 2.16.840.1.043610.3.579. 2.1285 1952 Unknown [id number] 2.16.840.1.099558.3.579. 2.1285 1952 Unknown [id number] 2.16.840.1.197231.3.579. 2.1285 1952 Unknown [id number] 2.16.840.1.805340.3.579. 2.1285 1952 Unknown [id number] 2.16.840.1.223428.3.579. 2.1285 1952 Unknown [id number] 2.16.840.1.448765.3.579. 2.1285 1952 Unknown [id number] 2.16.840.1.449107.3.579. 2.1285 1952 Unknown [id number] 2.16.840.1.638141.3.579. 2.1285 1952 Unknown [id number] 2.16.840.1.864069.3.579. 2.1285 1952 Unknown [id number] 2.16.840.1.456557.3.579. 2.1285 1952 Unknown [id number] 2.16.840.1.940101.3.579. 2.1285 1952 Unknown [id number] 2.16.840.1.724469.3.579. 2.1285 1952 Unknown [id number] 2.16.840.1.080872.3.579. 2.1285 1952 Unknown [id number] 2.16.840.1.822335.3.579. 2.1285 1952 Unknown [id number] 2.16.840.1.122485.3.579. 2.1285 1952 Unknown [id number] 2.16.840.1.635951.3.579. 2.1285 1952 Unknown [id number] 2.16.840.1.370004.3.579. 2.1285 1952 Unknown [id number] 2.16.840.1.695814.3.579. 2.1285 1952 Unknown [id number] 2.16.840.1.309745.3.579. 2.1285 1952 Unknown [id number] 2.16.840.1.080764.3.579. 2.1285 1952 Unknown [id number] 2.16.840.1.227080.3.579. 2.1285 1952 Unknown [id number] 2.16.840.1.181627.3.579. 2.1285 1952 Unknown [id number] 2.16.840.1.075913.3.579. 2.1285 1952 Unknown [id number] 2.16.840.1.604966.3.579. 2.1285 1952 Unknown [id number] 2.16.840.1.041753.3.579. 2.1285 1952 Unknown [id number] 2.16.840.1.525340.3.579. 2.1285 1952 Unknown [id number] 2.16.840.1.275166.3.579. 2.1285 1952 Unknown [id number] 2.16.840.1.985006.3.579. 2.1285 1952 Unknown [id number] 2.16.840.1.402104.3.579. 2.1285 1952 Unknown [id number] 2.16.840.1.902644.3.579. 2.718 1952 Unknown [id number] 2.16.840.1.303568.3.579. 2.718 1952 Unknown [id number] 2.16.840.1.724651.3.579. 2.718 1952 Unknown [id number] 2.16.840.1.266428.3.579. 2.718 1952 Unknown [id number] 2.16.840.1.518269.3.579. 2.718 Medicare Medicare [id number] Unknown [id number] 2.16.840.1.378147.3.579. 2.531 Social History Date Type Detail Facility Start: 02-12-2021 End: 01-26-2024 Tobacco smoking status [facility] Start: 02-12-2021 End: 02-14-2021 Cigarettes smoked current (pack per day) - Reported [employer] Phone: Start: 02-12-2021 End: 01-26-2024 Tobacco use and exposure Never used [employer] Start: 02-12-2021 End: 01-26-2024 Alcohol intake Current drinker of alcohol (finding) [employer] Phone: Start: 11-22-2015 Alcohol Comment RARE 1 DRINK E VERY 6 MONTHS [employer] Phone: Start: 1950 Sex Assigned At Not on file [employer] Phone: Exposure to SARS-CoV -2 (event) Not sure [employer] End: 10-16-2023 History of tobacco use [facility] Start: 02-14-2021 End: 10-19-2023 Social connection and isolation panel [facility] Do you belong to any clubs or organizations such as islam groups, unions, fraternal or athletic groups, or school groups? No [facility] Attends Club or Organization Meetings Not on file [facility] How often to you hav e a drink containing alcohol? Monthly or less [facility] How many standard dr inks containing alcohol do you have on a typical day? 1 or 2 [facility] How often do you hav e 6 or more drinks on 1 occasion? Never [facility] Do you feel stress - tense, restless, nervous, or anxious, or unable to sleep at night because your mind is troubled all the time - these days [OSQ] Not at all [facility] Start: 02-14-2021 Alcohol Comment rare [facility] Start: 01-07-2024 Tobacco smoking stat [facility] Ex-smoker [facility] Start: 02-24-2024 End: 05-17-2024 History of tobacco use Current smoker [facility] Start: 1950 Sex Assigned At Female F [facility] Medical Equipment Procedure Code Equipment Code Equipment Origin al Text Equipment Identifier Dates AAA repair with graft GRAFT HEMASHIELD [id number] FDA Start: 04-18-2019 AAA repair with graft GRAFT HEMASHIELD [id number] FDA Start: 04-18-2019 Brng Hum 36-44mm Std Shldr - [id number] Start: 09-13-[address] c Rpl [id number] - [id number] Start: 09-13-2018 Cbl Orth Lcp 750 mm Ss 1.7mm - [id number] Start: 09-13-2018 Lens Iol Ultrase rt 20.5d - [id number] - [id number] Start: 09-02-2018 Ty Hum Cmprh 44m m Cocr +5mm - [id number] Start: 09-13-2018 Scr Bn 25mm 4.75 mm Fx Ang Lck - [id number] Start: 09-13-2018 USE DIRECTED WITH LANTUS DAILY [id number] Start: 08-25-2022 USE TO TEST 2 TI MES DAILY [id number] Start: 07-22-2022 Goals Date Patient Goal Desired Activity /State Personal health goal Comment on above: Formatting of this n ote might be different from the original. Evaluation of progress towards goal: Return home with self care, quit smoking. - SUBHA Chase 09/12/18 2:02 PM Clinical Notes 02-12-2021 to 04-18-2024 Beulah Cho RN - 01/07/2024 12:11 PM Salena Fonseca DO - 01/07/2024 11:30 AM EDTTelephone Encounter - Beulah Cho RN - 12/31/2023 4:22 PM ESTDischarge Instr - ActivityAttachments Note Date & Type Note Facility 04-18-2024 Note XR CHEST 1 VW Procedure: Chest x-ray performed Number of views:AP portable History:Shortness of breath and cough Comparison:02/01/2024 Findings: The heart and lungs show no acute findings, and the mediastinum and sylwia are grossly negative . There is a left shoulder replacement Impression: No acute change. Finalized by Sanaz Burns DO on 04/18/2024 1:42 PM [facility] 03-14-2024 Note Entered by MATILDA BROCK DO on March 14, 2024 07:37:29 EDT From: MIGUEL BROCK DO To: [facility]/pharmacy #[id number] Sent: 03/14/2024 07:37:29 EDT Subject: Medication Management Documented Complete:fluticasone nasal (fluticasone 50 mcg/inh nasal spray) Signed by MIGUEL BROCK DO 03/14/2024 07:37:00 EDT Approved fluticasone nasal (FLUTICASONE PROP 50 MCG SPRAY) SPRAY 1 SPRAY INTO EACH NOSTRIL EVERY DAY Qty: 32 mL Days Supply: 120 Refills: 4 Substitutions Allowed Route To Pharmacy - [facility]/pharmacy #[id number] Patient matched by MIGUEL BROCK DO on 03/14/2024 07:37:12 EDT From: [employer] [id number] To: MIGUEL BROCK DO Sent: March 12, 2024 6:55:34 AM CDT Subject: Medication Management Due: March 13, 2024 12:03:07 AM CDT On Hold Pending Signature Dispensed Drug: fluticasone nasal (fluticasone 50 mcg/inh nasal spray), SPRAY 1 SPRAY INTO EACH NOSTRIL EVERY DAY Quantity: 32 mL Days Supply: 120 Refills: 4 Substitutions Allowed Notes from Pharmacy: [facility] 01-11-2024 Note Entered by MATILDA BROCK DO on January 11, 2024 07:47:51 EDT From: MIGUEL BROCK DO To: [facility]/pharmacy #[id number] Sent: 01/11/2024 07:47:51 EDT Subject: Medication Management Approved Durable Medical Equipment for Prescription (ONE TOUCH ULTRA BLUE TEST STRP) TEST TWICE DAILY Qty: 100 Strip Days Supply: 30 Refills: 4 Substitutions Allowed Route To Pharmacy - [facility]/pharmacy #[id number] From: [employer] [id number] To: MIGUEL BROCK DO Sent: January 10, 2024 11:22:06 PM CDT Subject: Medication Management Due: January 11, 2024 12:31:07 AM CDT On Hold Pending Signature Dispensed Drug: ONE TOUCH ULTRA BLUE TEST STRP, TEST TWICE DAILY Quantity: 100 Strip Days Supply: 30 Refills: 4 Substitutions Allowed Notes from Pharmacy: [facility] 01-07-2024 History of Presen t illness Narrative SENT CARDIAC CLEARANCE LETTER TO DR Servando ELLIS FOR UPCOMING BRONCHOSCOPY WITH BAL UNDER GENERAL ANESTHESIA documented in this encounter [facility] 01-07-2024 History of Presen t illness Narrative Images from the original note were not included. [facility] Pulmonary [facility] Sleep Progress Note Patient - Jazzmine Patel Age - 73 y.o. - 1950 ASSESSMENT 1. Moderately severe COPD with emphysema 2. Bilateral multiple pulmonary nodules -new in December 2019 3. MIYA asymptomatic pulmonary AVM 4. Alpha-1 mutation 5. Tobacco use 6. Atelectasis of the lingula 7. Chronic cough PLAN Given symptoms and radiographic findings, bronchoscopy for direct airway evaluation, therapeutic aspiration and BAL is advised. Risk and benefit reviewed. She is agreeable to proceed Will need cardiology clearance and advisement on holding Eliquis Plan for procedure presently 01/25 Pending findings on bronchoscopy and culture data, may benefit from 3 times weekly azithromycin, hypertonic saline aerosols and vest therapy for mucus clearance. Advised ongoing albuterol aerosols with Wixela and Spiriva. Insurance does not cover triple Repeat home oxygen evaluation. Will need repeat CT chest imaging and PFT data. All questions answered. MARLINE Dover presents for follow up of her COPD and to Discussed most recent CT scan of the chest imaging. She has had some persistent atelectatic collapse of the lingula with concern for possible endobronchial obstruction. We have discussed previous bronchoscopy in the past. Overall she reports that she has been feeling worse over the last 6 months since she was last seen. She has poor energy, increased sleeping, chronic daily cough productive of copious amounts of thick mucus. Sometimes it is hard to get out of her mouth. She does know that once she is finally able to clear out the mucus her breathing is improved. Last office visit we prescribed Mucomyst to attempt to facilitate mucus clearance but she has not obtained. She has been taking Mucinex b.i.d.. She is also taking albuterol aerosols twice per day allowing with her Wixela and Spiriva. She feels that she is getting more winded with exertion. She does wheeze more at night. Again once she can relieve the mucus she feels somewhat better. No recent need for antibiotics or steroids. Last home O2 evaluation July 2022. Last PFT data December 2022. She does not have home pulse oximeter to measure her home oxygen levels. She does continue to smoke VITALS BP 109/65 Pulse 71 Ht 170.2 cm (5' 7 ) Wt 52.5 kg (115 lb 12.8 oz) LMP (LMP Unknown) SpO2 93% BMI 18.14 kg/m Exam General: Alert, oriented, chronic ill, nontoxic, thin HEENT: Moist mucosal membranes, no oral lesions or oral thrush, trachea midline Chest: Diminished throughout Normal AP diameter. CV: Regular rate regular rhythm Extremities: No edema, erythema, distal cyanosis, clubbing Integumentary: Warm and dry. No rash or lesion Neuro: No lateralizing deficits. No tremors Meds Medications Reviewed. Lab Results PFT Results Radiology CT CHEST WITHOUT CONTRAST 12/02/23 HISTORY: Cough, lung nodules COMPARISON: 05/05/2023 TECHNIQUE: Routine CT chest without contrast. All CT scans at this facility use dose modulation, iterative reconstruction, and/or weight based dosing when appropriate to reduce radiation dose to as low as reasonably achievable. FINDINGS: Emphysema. Unchanged chronic lingular atelectasis/consolidation with some subsegmental lingular bronchial occlusion. A few scattered noncalcified lung nodules are unchanged with the largest measuring 0.4 cm in the left lower lobe (axial image 105). Sequela of old granulomatous disease. Normal heart size. Nonobstructing right renal stones. No pleural or pericardial effusions. Normal heart size. The thoracic aorta is unremarkable. The central pulmonary arteries are unremarkable. Coronary artery calcifications. No enlarged thoracic lymph nodes. Visualized chest wall structures are unremarkable. No acute osseous abnormalities or aggressive osseous lesions. IMPRESSION: * Unchanged chronic area of atelectasis/consolidation in the lingula with lingular subsegmental bronchial occlusion. * A few scattered noncalcified lung nodules are unchanged measuring up to 0.4 cm. No new lung nodules. * Emphysema. Dr. Eileen Fonseca DO. [facility] Office: [phone] documented in this encounter [email or web address] 12-31-2023 Miscellaneous Notes PATIENT RETURNED CALL. NOT SURE WHO CALLED PATIENT. PLEASE CALL HER BACK AT [phone] documented in this encounter [facility] 12-31-2023 Telephone encounter Note PATIENT RETURNED CALL. NOT SURE WHO CALLED PATIENT. PLEASE CALL HER BACK AT [phone] [facility] 12-31-2023 Miscellaneous Notes She has abnormal imaging from 12/03 and has been scheduled and not shown it looks like twice? Can we reach out to her and see if she can come in and notify PCP of imaging and efforts please just so he is up to date? Thank you documented in this encounter [facility] 12-31-2023 Telephone encounter Note She has abnormal imaging from 12/03 and has been scheduled and not shown it looks like twice? Can we reach out to her and see if she can come in and notify PCP of imaging and efforts please just so he is up to date? Thank you [facility] 12-07-2023 Miscellaneous Notes ----- Message from Eileen Fonseca DO sent at 12/07/2023 10:35 AM EST ----- Can she come in on at 3:45? Functional Consultant spoke with patient and informed her that SE would like to see her on 12/24/2023 at 3:45pm if patient is available. Patient stated that she is able to come into the office on 12/24/2023 at 3:45pm. Appointment moved to 12/24/2023. documented in this encounter [facility] 12-07-2023 Telephone encounter Note ----- Message from Eileen Fonseca DO sent at 12/07/2023 10:35 AM EST ----- Can she come in on at 3:45? [facility] 12-07-2023 Telephone encounter Note Functional Consultant spoke with patient and informed her that SE would like to see her on 12/24/2023 at 3:45pm if patient is available. Patient stated that she is able to come into the office on 12/24/2023 at 3:45pm. Appointment moved to 12/24/2023. [facility] 10-21-2023 Miscellaneous Notes Pt called again on SE nurse line stating she needs a return phone call JAMEEL. Returned pt's call and informed her once SE is back and reviews everything/ lets us know where we can add her, we will call her. Pt is aware + agreeable. Pt returned call. Pt agreeable to schedule CT chest - number to central scheduling provided. Advised pt once CT is scheduled to call office for follow up. Pt agreeable. documented in this encounter [facility] 10-21-2023 Telephone encounter Note Pt called again on SE nurse line stating she needs a return phone call JAMEEL. Returned pt's call and informed her once SE is back and reviews everything/ lets us know where we can add her, we will call her. Pt is aware + agreeable. [facility] 10-21-2023 Telephone encounter Note Pt returned call. Pt agreeable to schedule CT chest - number to central scheduling provided. Advised pt once CT is scheduled to call office for follow up. Pt agreeable. [facility] 09-10-2023 Note Entered by MATILDA BROCK DO on September 10, 2023 08:32:46 EST From: MIGUEL BROCK DO To: [facility]/pharmacy #[id number] Sent: 09/10/2023 08:32:45 EST Subject: Medication Management Approved Order:calcium-vitamin D (calcium (as carbonate)-vitamin D 250 mg-125 intl units oral tablet) TAKE 1 TABLET BY MOUTH TWICE A DAY Qty: 180 tab(s) Days Supply: 90 Refills: 2 Substitutions Allowed Route To Pharmacy - [facility] Note from Pharmacy: REQUEST FOR 90 DAYS PRESCRIPTION. Signed by MIGUEL BROCK DO Cancelled: Discontinue:calcium-vitamin D (Oyster Shell Calcium with Vitamin D 250 mg-3.125 mcg (125 intl units) oral tablet) Signed by MIGUEL BROCK DO From: [facility] To: MIGUEL BROCK DO Sent: September 10, 2023 7:30:39 AM ORDER DISPATCHER CHIEF Subject: Medication Management Due: September 11, 2023 7:30:39 AM ORDER DISPATCHER CHIEF Originally Prescribed Drug: Drug: calcium-vitamin D (calcium (as carbonate)-vitamin D 250 mg-125 intl units oral tablet), TAKE 1 TABLET BY MOUTH TWICE A DAY Quantity: 60 tab(s) Days Supply: 30 Refills: 5 Substitutions Allowed Notes from Pharmacy: REQUEST FOR 90 DAYS PRESCRIPTION. On Hold Pending Signature Preferred Alternative Drug: calcium-vitamin D (calcium (as carbonate)-vitamin D 250 mg-125 intl units oral tablet), TAKE 1 TABLET BY MOUTH TWICE A DAY Quantity: 180 tab(s) Days Supply: 90 Refills: 2 Substitutions Allowed Notes from Pharmacy: REQUEST FOR 90 DAYS PRESCRIPTION. [facility] 02-13-2021 Hospital Discharg e instructions Riley Solis APRN - CNP - 02/13/2021 7:49 AM EDT Arm activity for 3-4 days. No lifting greater than 5 pounds. Ambika Sheriff RN - 02/13/2021 7:49 AM EDT Good nutrition is important when healing from an illness, injury, or surgery. Follow any nutrition recommendations given to you during your hospital stay. If you were given an oral nutrition supplement while in the hospital, continue to take this supplement at home. You can take it with meals, in-between meals, and/or before bedtime. These supplements can be purchased at most local grocery stores, pharmacies, and chain [employer]-stores. If you have any questions about your diet or nutrition, call the hospital and ask for the dietitian. Cardiac diet low in fat and sodium Riley Solis APRN - CNP - 02/13/2021 7:50 AM EDT Follow-up in [place] office in 7 to 10 days for cath site evaluation and continued monitoring. The following attachments cannot be sent through Care Everywhere.PCI (Percutaneous Coronary Intervention): Post-op ([place])PCI (Percutaneous Coronary Intervention): General Info ([place])atorvastatin ([place])clopidogrel ([place])documented in this encounter [facility]: 02-12-2021 History of Presen t illness Narrative Patient admitted to room 1011 from PACU. VS taken, telemetry placed and call light given/within reach. Patient A&O and given room orientation. Orders released/reviewed, initial assessment completed and navigator started. See chart for more detail. documented in this encounter [facility]: Evaluation note Diagnosis Abnormal stress test- Primary Other nonspecific abnormal cardiovascular system function study documented in this encounter [employer] [facility]: evaluation note* Diagnosis Moderate COPD (chronic obstructive pulmonary disease) ([facility])- Primary Pulmonary nodule Other diseases of lung, not elsewhere classified [id number] deficiency ([facility]) Lukyy-[id number] deficiency Dyspnea on exertion Other dyspnea and respiratory abnormality Abnormal CT of the chest Nonspecific (abnormal) findings on radiological and other examination of other intrathoracic organs Tobacco abuse Tobacco use disorder [facility] Diagnosis Onset Date Resolution Status 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 [facility] Work Phone: Evaluation note* Diagnosis Onset Date Resolution Status 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 [facility] Work Phone: InstructionsNot on filedocumented in this encounter [facility] on filedocumented in this encounter [facility]ructionsNot on filedocumented in this encounter [facility]ructionsNot on filedocumented in this encounter [facility]ructionsNot on filedocumented in this encounter [facility]ructionsNot on filedocumented in this encounter [facility] note Author Urszula Etienne [facility] March 15, 2024 11:42am Note Date/Time March 15, 2024 9:58a m 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 Patient has undergone bronchoscopy and is not considered a surgical candidate due to her severe obstructive pulmonary disease. PET shows lepidic pattern of spread disseminating along the fissure. While exact measurements are difficult it would appear there is involvement endobronchially extending approximately 5 cm to the left lung pleura. She returns to clinic today having undergone a screening EBUS in [place] on March 01, 2024. A single abnormal 4L lymph node was seen and FNA was negative. BAL was also negative. Patient declined chemotherapy. I recommend delivery of definitive radiation 60 Silverio in 15 fractions. I again provided a general overview of radiation treatment planning and delivery. We discussed the need for immobilization and CT simulation. Short and long-term side effects were reviewed in detail and her questions were answered. Patient is already experiencing pleuritic pain which is concordant with her imaging showing retraction of the pleura along the ribs near the tumor. I am gravely concerned regarding her COPD which appears to be end-stage. I emphasized at length that while radiation can treat this cancer her underlying lung damage may ultimately be her demise. She was encouraged to discuss with pulmonology as she continues to have multiple complaints regarding her breathing. We will attempt to expedite the PFTs. CHEMO PLAN No Active Chemotherapy History of Present Illness HPI 73-year-old female with past medical history notable for COPD as well as an alpha-1 mutation/alpha 1 antitrypsin deficiency. Oncologic history: December 03, 2023 CT of the chest showed a few scattered lung nodules measuring up to 4 mm in size largely unchanged. Chronic area of atelectasis and consolidation in the lingula with lingular subsegmental bronchial occlusion. January 26, 2024 bronchoscopy was completed. Patient was noted to have mucous plugging bilaterally. There was also abnormal tissue of the lingular inferior segment with purulent drainage from the lingula. She had bumpy abnormal tissue seen endobronchially in the left lingular region without clear obstructive tumor. Biopsies were taken. Biopsy revealed at least adenocarcinoma in situ involving the bronchial mucosa. TTF-1 was strongly positive. Although no invasive adenocarcinoma was identifiedin the specimen the in situ disease is extensive and invasive adenocarcinoma cannot be ruled out. document embedded image February 19, 2024 left lower lobe opacity demonstrates focal radiotracer activity right likely related to neoplasm with a maximum SUV of 8.3 with linear extensionto the pleura. PET notes focal activity with parenchymal scarring. There is noabnormal enlarged mediastinal nor hilar lymph nodes. Last PFTs were December 2022. FEV1 is 45% of predicted or 0.95 L. FVC is 71% of predicted. Significant postbronchodilator response with 17% improvement in FEV1. Impression was severe obstructive airflow defect with significant postbronchodilator response. I do not see a DLCO. Patient has smoked 5 packs/day in the past and continues to smoke occasionally. At consult she was accompanied by her sister. She has a chronic smoker's cough. Her brain MRI was done yesterday. Patient is concerned because her mother and brother had brain cancer . She also has peripheral vascular disease and has undergone bypass bilateral lower extremities. She also reported an aortic aneurysm. She also has injury to the left shoulder requiring pascual placement which limits her range of motion. Patient also reports left-sided flank pain consistent with the area of tumor. She returns to clinic today having undergone EBUS in [place]. EBUS was completedon March 01, 2024 copious amounts of mucus were noted in the bilateral left and right endobronchial tree with purulent drainage streaming from the medial subsegment of the lingula. Subsegments were irrigated with saline and aspiratedtill clear. The endobronchial ultrasound was passed through the tube into the trachea. EBUS survey of the bilateral hilar lymph nodes as well as the central mediastinum was done. The only enlarged lymph node greater than 5 mm identifiedfor biopsy with station 4L. This FNA was completed. Path from the EBUS for 4L was negative. There was an adequate lymphoid sample. BAL was also negative. Brain MRI was done and reported negative. I have images but no report today. She was placed on Levaquin for 10 days maintenance azithromycin 3 times weekly due to mucous. Also recommended for video swallow evaluation. She has not had her PFTs repeated apparently the order needed to be faxed to [facility]. Today she reports worsening shortness of breath and cough. She states the mucus is so thick she has to manually extracted from her throat. She has completed her antibiotic regimen. She continues on her nebulizers and inhaler. Intake Vitals/Pain Assessment 03/15/24 10:00 Weight 52.617 kg BP 136/85 Blood Pressure Location Lt brachial Position Sitting Temp 97.6 F Temp Source Temporal Pulse 96 Pulse Source NIBP Respiration 20 Pulse Oximetry (%) 64 L Oxygen Delivery Method room air Are you having pain? Yes Pain Location left rib Pain scale (0-10) 4 Intake Visit Reasons: Follow Up Prior to CT-SIM, follow up visit Allergies bactrim Adverse Reaction (Uncoded 03/15/24 10:04) Difficulty Breathing - Last Reconciled 03/15/24 by Leeanna Parsons albuterol sulfate 2.5 mg inhalation Q4H PRN apixaban (Eliquis) 5 mg PO BID diltiazem HCl ER 120 mg PO DAILY fluticasone propion-salmeterol 250-50 mcg/dose (Advair Diskus) 1 inh inhalation BID insulin glargine (Lantus U-100 Insulin) 16 units subcut DAILY oxycodone 5 mg PO Q6H PRN 7 days sotalol 120 mg PO BID tiotropium bromide (Spiriva with HandiHaler) 1 cap inhalation DAILY Gastrointestinal Bowel Protocol for Opioids Given: Yes Nurse's Note: Patient is here today for a 3 week follow up visit before [facility] Medical History Medical History Bronchiolo-alveolar adenocarcinoma of left lung Atrial fibrillation Diabetes COPD (chronic obstructive pulmonary disease) Surgical History Surgical History H/O repair of rotator cuff History of hysterectomy H/O shoulder replacement Family History Family History Father Myocardial infarction Lung cancer Brother Lung cancer Mother Brain cancer Social History Social History Smoking status: Current every day smoker Physical Exam EXAM Physical Exam: KPS 80 General: alert thin female in no acute distress HEENT: normocephalic, extra ocular movements intact Lungs: normal work of breathing on room air, decreased breath sounds bilaterally. Abdomen: non acute MSK: Left shoulder has limited external rotation as well as abduction. Neuro: grossly intact [facility] LAB RESULTS No Data to Display Dictated By: Urszula Etienne MD DD/ [id number] Signed By: <Electronically signed by Urszula Etienne MD> 03/15/24 1142 [facility] [facility] Work Phone: Reason for Referral Status Reason Specialty Diagnoses / Procedures Referred By Contact Referred To Contact Open Specialty Services Required Cardiac Rehabilitation Diagnoses Abnormal stress test [address] [address] Scheduling Instructions S/p stents Specialty Diagnoses / Procedures Referred By Contac t Referred To Contact Diagnoses Dyspnea on exertion Procedures Home O2 eval (desaturation screen) Eileen Fonseca DO [address] [address] Referral ID Status Reason Start Date Expiration Date V isits Requested Visits Authorized [id number] Pending Review 01/07/2024 01/06/2025 1 1 Advance Directives No Advanced Directives Records FoundDocuments on File Type Date Recorded 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 ACP-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 Latest Code Status on File Code Status Date Activated Date Inactivated Comments Full Code 02/12/2021 7:33 PM Full Code 12/04/2015 10:41 AM 12/04/2015 7:30 PM Documents on File Type Date Recorded 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 Latest Code Status on File Code Status Date Activated Date Inactivated Comments Full Code 08/09/2020 3:44 PM 08/10/2020 7:03 PM Code Status History Code Status Date Activated Date Inactivated Comments Full Code 09/12/2018 5:17 AM 09/16/2018 7:33 PM Documents on File Type Date Recorded 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 Latest Code Status on File Code Status Date Activated Date Inactivated Comments Full Code 08/09/2020 3:44 PM 08/10/2020 7:03 PM Code Status History Code Status Date Activated Date Inactivated Comments Full Code 09/12/2018 5:17 AM 09/16/2018 7:33 PM Advance Directive Response Recorded Date/ Time Advance Directives No March 15, 9 5:26pm Summary Purpose Family History No Family History Records Found Relationship Condition Age at Onset Recorded Date/T erum father Myocardial infarction Unknown Malignant neoplasm of lung Unknown brother Malignant neoplasm of lung Unknown Not Specified Malignant neoplasm of brain Unknown Relationship Condition Age at Onset Recorded Date/T erum father Myocardial infarction Unknown Malignant neoplasm of lung Unknown brother Malignant neoplasm of lung Unknown mother Malignant neoplasm of brain Unknown Chief Complaint and Reason for Visit Chief Complaint New Patient- Lung Ca ncer Follow Up Prior to CT-SIM Lung Cancer Reason for Visit 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 Chief Complaint New Patient- Lung Ca ncer Follow Up Prior to CT-SIM Lung Cancer Lung Cancer Lung Cancer Lung Cancer Lung Cancer Lung Cancer Lung Cancer Follow Up 1 Month Reason for Visit 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 Additional Source Comments Reason for Visit (unrecogniz ed section and content) Status Reason Specialty Diagnoses / Procedures Referre d By Contact Referred To Contact [facility] [address] [place] [address] [facility] Reason Comments Follow-up [id number] deficiencyPulmonary NoduleCT: 12/02/2023Lower Respiratory Culture: 06/12/2023 Ordered Prescriptions (unrec ognized section and content) Prescription Sig Dispensed Refills Start Date End Da te atorvastatin (LIPITOR) 80 MG tablet Take 1 tablet by mouth daily 30 tablet 3 02/13/2021 aspirin 81 MG chewable tablet Take 1 tablet by mouth daily 30 tablet 3 02/13/2021 clopidogrel (PLAVIX) 75 MG tablet Take 1 tablet by mouth daily 30 tablet 3 02/13/2021 INFORMATION SOURCE (unrecogn ized section and content) DATE CREATED AUTHOR 02/15/[address] [facility] DATE CREATED AUTHOR AUTHOR'S ORGANIZ ATION 03/03/2023 [facility] DATE CREATED AUTHOR AUTHOR'S ORGANIZ ATION 03/17/2024 [facility] DATE CREATED AUTHOR AUTHOR'S ORGANIZ ATION 04/27/2024 [facility] DATE CREATED AUTHOR AUTHOR'S ORGANIZ ATION 04/28/2024 [facility] DATE CREATED AUTHOR AUTHOR'S ORGANIZ ATION 05/11/2024 [facility] DATE CREATED AUTHOR AUTHOR'S ORGANIZ ATION 05/29/2024 [facility] Care Teams (unrecognized sec tion and content) 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 Start Date End Date Miguel Brock DO [address] [place] [address] PCP - General 10/17/16 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 Start Date End Date Miguel Brock DO [address] [place] [address] PCP - General 10/17/16 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 Start Date End Date Miguel Brock DO [address] [place] [address] PCP - General 10/17/16 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 Start Date End Date Migule Brock DO [address] [place] [id number] PCP - General Family Medicine 01/25/24 Team Status: Active Member Role Status Dates Miguel Brock DO Primary Care Provider Active Team Status: Inactive Member Role Status Dates Urszula Etienne MD Attending Provider Active Start: February 24, 2024 End: February 24, 2024 Miguel Brock DO Primary Care Provider Active Start: February 24, 2024 End: February 24, 2024 Anisha Wolf MD Referring Provider Active St art: February 24, 2024 End: February 24, 2024 Team Status: Inactive Member Role Status Dates Miguel Brock DO Primary Care Provider Active Start: March 15, 2024 End: March 15, 2024 Urszula Etienne MD Attending Provider Active Start: March 15, 2024 End: March 15, 2024 Team Status: Active Member Role Status Dates Miguel Brock DO Primary Care Provider Active Start: March 15, 2024 Urszula Etienne MD Attending Provider Active Start: March 15, 2024 Anisha Wolf MD Referring Provider Active St art: March 15, 2024 Team Status: Active Member Role Status Dates Miguel Brock DO Primary Care Provider Active Start: March 15, 2024 Urszula Etienne MD Attending Provid er, Other Provider Active Start: March 15, 2024 Anisha Wolf MD Referring Provider Active St art: March 15, 2024 Team Status: Active Member Role Status Dates Miguel Brock DO Primary Care Provider Active Start: March 23, 2024 Urszula Etienne MD Attending Provid er, Other Provider Active Start: March 23, 2024 Anisha Wolf MD Referring Provider Active St art: March 23, 2024 Team Status: Active Member Role Status Dates Miguel Brock DO Primary Care Provider Active Start: April 04, 2024 Urszula Etienne MD Attending Provid er, Other Provider Active Start: April 04, 2024 Anisha Wolf MD Referring Provider Active St art: April 04, 2024 Team Status: Active Member Role Status Dates Miguel Brock DO Primary Care Provider Active Start: April 12, 2024 Urszula Etienne MD Attending Provid er, Other Provider Active Start: April 12, 2024 Anisha Wolf MD Referring Provider Active St art: April 12, 2024 Team Status: Active Member Role Status Dates Miguel Brock DO Primary Care Provider Active Start: April 19, 2024 Urszula Etienne MD Attending Provid er, Other Provider Active Start: April 19, 2024 Anisha Wolf MD Referring Provider Active St art: April 19, 2024 Team Status: Active Member Role Status Dates Miguel Brock DO Primary Care Provider Active Start: May 02, 2024 Urszula Etienne MD Attending Provid er, Other Provider Active Start: May 02, 2024 Anisha Wolf MD Referring Provider Active St art: May 02, 2024 Team Status: Active Member Role Status Dates Miguel Brock DO Primary Care Provider Active Start: May 17, 2024 Urszula Etienne MD Attending Provider Active Start: May 17, 2024 Anisha Wolf MD Referring Provider Active St art: May 17, 2024 Team Status: Inactive Member Role Status Nikos Brock DO Primary Care Provider Active Start: May 17, 2024 End: May 17, 2024 Urszula Etienne MD Attending Provider Active Start: May 17, 2024 End: May 17, 2024 Goals (unrecognized section and content) Goals may be documented in a n alternate sectionGoals may be documented in an alternate section FOR RECORDS PERTAINING TO PATIENTS WHO ARE OR HAVE BEEN ENROLLED IN A CHEMICAL DEPENDENCY/SUBSTANCEABUSE PROGRAM, SOME INFORMATION MAY BE OMITTED. This clinical summary was aggregated from multiple sources. Caution should be exercised in using it in the provision of clinical care. This summary normalizes information from multiple sources, and as a consequence, information in this document may materially change the coding, format and clinical context of patient data. In addition, data may be omitted in some cases. CLINICAL DECISIONS SHOULD BE BASED ON THE PRIMARY CLINICAL RECORDS. [facility] [employer] provides no warranty or guarantee of the accuracy or completeness of information in this document.
== END 2024-06-02 13:09 | disposition home or self-care (01) ==
LOC: VC 13:08
PROVIDERS: Visit Provider Student in an Organized Health Care Education/Training Program
DX: R09.89 Other specified symptoms and signs involving the circulatory and respiratory systems (principal); I73.9 Peripheral vascular disease, unspecified
CPT/HCPCS: 93880; 93923

== ENCOUNTER 2024-06-21 07:59 | Outpatient (RCR) | payer MEDICARE, MEDICAID, SELFPAY | END 2024-06-25 23:59 | disposition home or self-care (01) | LOC: HEMC 07:59 | PROVIDERS: PCP Family Medicine; Visit Provider Internal Medicine Hematology & Oncology | DX: C34.92 Malignant neoplasm of unspecified part of left bronchus or lung (principal); R05.3 Chronic cough; R06.02 Shortness of breath | CPT/HCPCS: G0463 ==

== ENCOUNTER 2024-06-21 09:54 | Outpatient (OUT) | payer MEDICARE, MEDICAID, SELFPAY ==
--- OUTSIDE RECORDS SUMMARY | 2024-06-21 10:12 | XMS_ITS | CCD ---
Author Organization [facility] Care Team Providers Care School Psychology Specialist Name Role Phone House DO, Sr Miguel Vargas Primary Care Provider [phone] WILLIE FORTUNE Admitting Unavailable WILLIE FORTUNE Attending Unavailable WILLIE FORTUNE Referring Unavailable HOUSE, [...] Unavailable DO Miguel Brock Primary Care Provider [phone] MD Urszula Etienne Attending Provider MD Anisha [...] Unavailable House, DO Rivera Primary Care Provider MD Urszula Etienne Attending [...] Renzo Gilliland MD Attending Unavailable HOUSE, MIGUEL Vargsa Primary Care Unavailable Renzo Gilliland MD Attending Unavailable Allergies Allergy Classification Reported Allergen(s) Allergy Type Date of Onset Reaction(s) Facility (2 sources) Sulfamethoxazole / Trimethoprim; Translations: [Bactrim] Drug Allergy [facility] Repository (10 sources) Sulfamethoxazole / Trimethoprim; Translations: [SULFAMETHOXAZOLE-TR IMETHOPRIM] Drug Allergy [employer] Medications Current Medications Medication Drug Class(es) Dates Sig (Normalized) Sig (Original) acetaminophen 325 mg oral tablet (2 sources) Start: 02-12-2021 acetaminophen (TYLENOL) tablet 650 mg End: 02-13-2021 take 2 tablets by mouth every six hours as needed for pain acetaminophen (TYLENOL) 325 MG tablet Take 650 mg by mouth every 6 hours as needed for Pain 0 02/13/2021 Discontinued (Stop Taking at Discharge) [id number] 200 actuat albuterol 0.09 mg/actuat metered dose inhaler (19 sources) beta2-Adrenergic Agonist Start: 08-03-2023 take 2 puff(s) by mouth every four hours as needed albuterol (PROVENTIL HFA;VENTOLIN HFA) 90 mcg/actuation inhaler Indications: Moderate COPD (chronic obstructive pulmonary disease) ([facility]) TAKE 2 PUFFS BY MOUTH EVERY 4 HOURS NEEDED FOR WHEEZE 6.7 g 11 08/03/2023 Active Start: 05-11-2023 take 1 dose by inhal ation four times daily as needed for wheezing albuterol (PROVENTIL,VENTOLIN) 2.5 mg /3 mL (0.083 %) nebulizer solution Indications: Chronic obstructive pulmonary disease, unspecified COPD type ([facility]) INHALE ONE VIAL VIA NEBULIZER FOUR TIMES [...] the lungs 2 times daily 0 Active WPHGXQAKVTC-ZXNKJVSCF-OVVWDP IN (1 source) take 1 puff(s) by inhalation once daily BKXLVLFRFCI-NPFZXLCIX-GNBBEH IN Inhale 1 puff into the lungs [...] (CVA), unspecified mechanism (CMS-HCC) , Atherosclerosis of [place] coronary artery of [place] heart without angina pectoris , Status post [...] 2.5 mcg/actuation mist Indications: COPD without exacerbation ([facility]) Inhale 2 puffs daily. 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] Onset: 08-09-2020 08-09-2020 Chronic Other nutritional; endocrine; and metabolic disorders (1 source) Hypocalcemia; Translations: [Hypocalcemia] Onset: 04-25-2024 Chronic Other nutritional; endocrine; and metabolic disorders (1 source) Qqvak-5-oalsjzfbgux deficiency; 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-8-plctafqpijq deficiency] Onset: 08-09-2020 Chronic Other screening for [...] Facility Consultation/Specialist Note on 05-26-2024 Consultation/Specialist Note [id number] [address] Consultation/Specialist Note on 05-19-2024 Consultation/Specialist Note [id number] [address] Consultation/Specialist Note on 05-12-2024 Consultation/Specialist Note [id number] [address] Consultation/Specialist Note [id number] [address] [place] [address] CBC AND AUTO DIFFon 04-27-20 24 ABSOLUTE BASOPHIL 0.1 X10E9/L Normal 0.0-0.2 [facility] Comment on above: Performed By: #### C JORGE CMP, 41961-6 #### ([id number])[address] [place] [address] 57044 ABSOLUTE NEUTROPHIL 6.3 X10E9/L Normal 1.5-6.6 [facility] Comment on above: Performed By: #### C JORGE CMP, 65550-0 #### ([id number])[address] [place] [address] 39946 Basophils/100 WBC (Bld) 1.2 % Normal [facility] Comment on above: Performed By: #### C MOJGAN PATEL, #### ([id number])[address] [place] [address] 63102 Eosinophils (Bld) [#/Vol] 0.2 10*3/uL Normal 0.0-0.4 [facility] Comment on above: Performed By: #### Neymar PTAEL CMP, #### ([id number])[address] [place] [address] 20930 Eosinophils/100 WBC (Bld) 2.8 % Normal [facility] Comment on above: Performed By: #### Neymar PATEL CMP, #### ([id number])[address] [place] [address] 90829 Erythrocyte distribution width (RBC) [Ratio] 15.1 % High 11.5-15.0 [facility] Comment on above: Performed By: #### Neymar PATEL CMP, #### ([id number])[address] [place] [address] 99052 Hematocrit (Bld) [Volume fraction] 37.9 % Normal 35-47 [facility] Comment on above: Performed By: #### Neymar PATEL CMP, #### ([id number])[address] [place] [address] 98932 Hemoglobin (Bld) [Mass/Vol] 13.0 g/dL Normal 11.7-15.5 [facility] Comment on above: Performed By: #### Neymar PATEL CMP, #### ([id number])[address] [place] [address] 73399 Lymphocytes (Bld) [#/Vol] 0.8 10*3/uL Low 1.0-3.5 [facility] Comment on above: Performed By: #### C MOJGAN PATEL, #### ([id number])[address] [place] [address] 97426 Lymphocytes/100 WBC (Bld) 10.3 % Normal [facility] Comment on above: Performed By: #### C JORGE, CMP, #### ([id number])[address] [place] [address] 41718 MCH (RBC) [Entitic mass] 31.0 pg Normal 27-34 [facility] Comment on above: Performed By: #### C JORGE, CMP, #### ([id number])[address] [place] [address] 99966 MCHC (RBC) [Mass/Vol] 34.4 g/dL Normal 32-36 [facility] Comment on above: Performed By: #### Neymar PATEL, CMP, #### ([id number])[address] [place] [address] 69423 MCV (RBC) [Entitic vol] 90 fL Normal 80-100 [facility] Comment on above: Performed By: #### Neymar PATEL, CMP, #### ([id number])[address] [place] [address] 33594 Monocytes (Bld) [#/Vol] 0.7 10*3/uL Normal 0-0.9 [facility] Comment on above: Performed By: #### C JORGE, CMP, #### ([id number])[address] [place] [address] 68504 Monocytes/100 WBC (Bld) 8.4 % Normal [facility] Comment on above: Performed By: #### Neymar PATEL, CMP, #### ([id number])[address] [place] [address] 65139 Neutrophils/100 WBC (Bld) 77.3 % Normal [facility] Comment on above: Performed By: #### Neymar PATEL CMP, #### ([id number])[address] [place] [address] 16748 Platelet mean volume (Bld) [Entitic vol] 8.4 fL Normal 7-12 [facility] Comment on above: Performed By: #### Neymar PATEL CMP, #### ([id number])[address] [place] [address] 92138 Platelets (Bld) [#/Vol] 171 10*3/uL Normal 150-450 [facility] Comment on above: Performed By: #### Neymar PATEL CMP, #### ([id number])[address] [place] [address] 39722 RBC COUNT 4.21 X10E12/L Normal 3.80-5.20 [facility] Comment on above: Performed By: #### Neymar PATEL CMP, #### ([id number])[address] [place] [address] 86145 WBC (Bld) [#/Vol] 8.1 10*3/uL Normal 4.0-11.0 [facility] Comment on above: Performed By: #### Neymar PATEL CMP, #### ([id number])[address] [place] [address] 13434 COMPREHENSIVE METABOLIC PANE Kemal 04-27-2024 Albumin [Mass/Vol] 3.0 g/dL Low 3.2-5.3 [facility] Comment on above: Performed By: #### Neymar PATEL CMP, #### ([id number])[address] [place] [address] 39426 ALP [Catalytic activity/Vol] 43 U/L Normal 39-130 [facility] Comment on above: Performed By: #### C JORGE CMP, #### ([id number])[address] [place] [address] [place] [address] ALT [Catalytic activity/Vol] 27 U/L Normal 0-31 [facility] Comment on above: Performed By: #### C BCA, CMP, #### ([id number])[address] [place] [address] 38174 Anion gap [Moles/Vol] 7 mmol/L Normal 5-15 [facility] Comment on above: Performed By: #### Neymra PATEL CMP, #### ([id number])[address] [place] [address] 97226 AST [Catalytic activity/Vol] 15 U/L Normal 0-41 [facility] Comment on above: Performed By: #### C BCA, CMP, #### ([id number])[address] [place] [address] 91170 Bilirubin [Mass/Vol] 0.9 mg/dL Normal 0.3-1.2 [facility] Comment on above: Performed By: #### Neymar BCA, CMP, #### ([id number])[address] [place] [address] [place] [address] Calcium [Mass/Vol] 7.5 mg/dL Low 8.5-10.5 [facility] Comment on above: Performed By: #### C BCA, CMP, #### ([id number])[address] [place] [address] 76518 Chloride [Moles/Vol] 97 mmol/L Low 98-109 [facility] Comment on above: Performed By: #### Neymar BCA, CMP, #### ([id number])[address] [place] [address] [place] [address] CO2 [Moles/Vol] 29 mmol/L Normal 22-32 [facility] Comment on above: Performed By: #### C MOJGAN PATEL, 95993-7 #### ([id number])[address] [place] [address] [place] [address] Creatinine [Mass/Vol] 0.88 mg/dL Normal 0.40-1.00 [facility] Comment on above: Result Comment: METH OD TRACEABLE TO IDMS STANDARD Performed By: #### C MOJGAN PATEL, #### ([id number])[address] [place] [address] 71669 GFR/1.73 sq M.predicted among non-blacks MDRD (S/P/Bld) [Vol rate/Area] 70 mL/min/{1.73_m2} Normal >59 [facility] Comment on above: Result Comment: Reported eGFR is based on the CKD-EPI 2020 equation that does not use a race coefficient. Performed By: #### C MOJGAN PATEL, #### ([id number])[address] [place] [address] 16270 Glucose [Mass/Vol] 104 mg/dL High 65-99 [facility] Comment on above: Performed By: #### C MOJGAN PATEL, #### ([id number])[address] [place] [address] [place] [address] Potassium [Moles/Vol] 3.1 mmol/L Low 3.5-5.0 [facility] Comment on above: Performed By: #### C MOJGAN PATEL, #### ([id number])[address] [place] [address] [place] [address] Protein [Mass/Vol] 5.9 g/dL Low 6.0-8.0 [facility] Comment on above: Performed By: #### C JORGE [facility], 13266-1 #### ([id number])[address] [place] [address] 16043 Sodium [Moles/Vol] 133 mmol/L Low 134-146 [facility] Comment on above: Performed By: #### C MOJGAN PATEL, 88192-2 #### ([id number])[address] [place] [address] 51274 Urea nitrogen [Mass/Vol] 20 mg/dL Normal 5-27 [facility] Comment on above: Performed By: #### C MOJGAN PATEL, 38898-4 #### ([id number])[address] [place] [address] 72839 Glucose Glucometer (BldC) [M ass/Vol]on 04-27-2024 Glucose [Mass/Vol] 325 mg/dL High 65-99 [facility] MAGNESIUMon 04-27-2024 Magnesium [Mass/Vol] 2.2 mg/dL Normal 1.8-2.6 [facility] Comment on above: Performed By: #### C JORGE [facility], 01732-4 #### ([id number])[address] [place] [address] 18021 CBC AND AUTO DIFFon 04-26-20 24 ABSOLUTE BASOPHIL 0.0 X10E9/L Normal 0.0-0.2 [facility] Comment on above: Performed By: #### C OVFLR #### ([id number]) [address] [place] [address] 15463 ABSOLUTE NEUTROPHIL 10.7 X10E9/L High 1.5-6.6 [facility] Comment on above: Performed By: #### C OVFLR #### ([id number]) [address] [place] [address] 10565 Basophils/100 WBC (Bld) 0.3 % Normal [facility] Comment on above: Performed By: #### C OVFLR #### ([id number]) [address] [place] [address] 04824 Eosinophils (Bld) [#/Vol] 0.1 10*3/uL Normal 0.0-0.4 [facility] Comment on above: Performed By: #### C OVFLR #### ([id number]) [address] [place] [address] 24789 Eosinophils/100 WBC (Bld) 0.7 % Normal [facility] Comment on above: Performed By: #### C OVFLR #### ([id number]) [address] [place] [address] 94184 Erythrocyte distribution width (RBC) [Ratio] 14.8 % Normal 11.5-15.0 [facility] Comment on above: Performed By: #### C OVFLR #### ([id number]) [address] [place] [address] 43349 Hematocrit (Bld) [Volume fraction] 41.2 % Normal 35-47 [facility] Comment on above: Performed By: #### C OVFLR #### ([id number]) [address] [place] [address] 80852 Hemoglobin (Bld) [Mass/Vol] 14.0 g/dL Normal 11.7-15.5 [facility] Comment on above: Performed By: #### C OVFLR #### ([id number]) [address] [place] [address] 40126 Lymphocytes (Bld) [#/Vol] 0.5 10*3/uL Low 1.0-3.5 [facility] Comment on above: Performed By: #### C OVFLR #### ([id number]) [address] [place] [address] 36184 Lymphocytes/100 WBC (Bld) 4.4 % Normal [facility] Comment on above: Performed By: #### C OVFLR #### ([id number]) [address] [place] [address] 60711 MCH (RBC) [Entitic mass] 30.9 pg Normal 27-34 [facility] Comment on above: Performed By: #### C OVFLR #### ([id number]) [address] [place] [address] 95422 MCHC (RBC) [Mass/Vol] 33.9 g/dL Normal 32-36 [facility] Comment on above: Performed By: #### C OVFLR #### ([id number]) [address] [place] [address] 95638 MCV (RBC) [Entitic vol] 91 fL Normal 80-100 [facility] Comment on above: Performed By: #### C OVFLR #### ([id number]) [address] [place] [address] 46721 Monocytes (Bld) [#/Vol] 1.0 10*3/uL High 0-0.9 [facility] Comment on above: Performed By: #### C OVFLR #### ([id number]) [address] [place] [address] 14925 Monocytes/100 WBC (Bld) 7.8 % Normal [facility] Comment on above: Performed By: #### C OVFLR #### ([id number]) [address] [place] [address] 08105 Neutrophils/100 WBC (Bld) 86.8 % Normal [facility] Comment on above: Performed By: #### C OVFLR #### ([id number]) [address] [place] [address] 04083 Platelet mean volume (Bld) [Entitic vol] 8.3 fL Normal 7-12 [facility] Comment on above: Performed By: #### C OVFLR #### ([id number]) [address] [place] [address] 50256 Platelets (Bld) [#/Vol] 168 10*3/uL Normal 150-450 [facility] Comment on above: Performed By: #### C OVFLR #### ([id number]) [address] [place] [address] 16441 RBC COUNT 4.52 X10E12/L Normal 3.80-5.20 [facility] Comment on above: Performed By: #### C OVFLR #### ([id number]) [address] [place] [address] 45803 WBC (Bld) [#/Vol] 12.3 10*3/uL High 4.0-11.0 [facility] Comment on above: Performed By: #### C OVFLR #### ([id number]) [address] [place] [address] 21196 COMPREHENSIVE METABOLIC PANE Kemal 04-26-2024 Albumin [Mass/Vol] 3.1 g/dL Low 3.2-5.3 [facility] Comment on above: Performed By: #### C OVFLR #### ([id number]) [address] [place] [address] 44145 ALP [Catalytic activity/Vol] 43 U/L Normal 39-130 [facility] Comment on above: Performed By: #### C OVFLR #### ([id number]) [address] [place] [address] 51300 ALT [Catalytic activity/Vol] 36 U/L High 0-31 [facility] Comment on above: Result Comment: SPEC IMEN HEMOLYZED, RESULTS INCREASED Performed By: #### C OVFLR #### ([id number]) [address] [place] [address] 69689 Anion gap [Moles/Vol] 10 mmol/L Normal 5-15 [facility] Comment on above: Performed By: #### C OVFLR #### ([id number]) [address] [place] [address] [place] [address] AST [Catalytic activity/Vol] 21 U/L Normal 0-41 [facility] Comment on above: Result Comment: SPEC IMEN HEMOLYZED, RESULTS INCREASED Performed By: #### C OVFLR #### ([id number]) [address] [place] [address] 19203 Bilirubin [Mass/Vol] 1.7 mg/dL High 0.3-1.2 [facility] Comment on above: Result Comment: RESU LTS QUESTIONABLE DUE TO HEMOLYSIS Performed By: #### C OVFLR #### ([id number]) [address] [place] [address] 62470 Calcium [Mass/Vol] 7.2 mg/dL Low 8.5-10.5 [facility] Comment on above: Performed By: #### C OVFLR #### ([id number]) [address] [place] [address] [place] [address] Chloride [Moles/Vol] 96 mmol/L Low 98-109 [facility] Comment on above: Performed By: #### C OVFLR #### ([id number]) [address] [place] [address] 60391 CO2 [Moles/Vol] 29 mmol/L Normal 22-32 [facility] Comment on above: Performed By: #### C OVFLR #### ([id number]) [address] [place] [address] 01239 Creatinine [Mass/Vol] 0.88 mg/dL Normal 0.40-1.00 [facility] Comment on above: Result Comment: METH OD TRACEABLE TO IDMS STANDARD Performed By: #### C OVFLR #### ([id number]) [address] [place] [address] 67807 GFR/1.73 sq M.predicted among non-blacks MDRD (S/P/Bld) [Vol rate/Area] 70 mL/min/{1.73_m2} Normal >59 [facility] Comment on above: Result Comment: Reported eGFR is based on the CKD-EPI 2020 equation that does not use a race coefficient. Performed By: #### C OVFLR #### ([id number]) [address] [place] [address] 88354 Glucose [Mass/Vol] 134 mg/dL High 65-99 [facility] Comment on above: Performed By: #### C OVFLR #### ([id number]) [address] [place] [address] 85487 Potassium [Moles/Vol] 3.8 mmol/L Normal 3.5-5.0 [facility] Comment on above: Result Comment: SPEC IMEN HEMOLYZED, RESULTS INCREASED Performed By: #### C OVFLR #### ([id number]) [address] [place] [address] 38763 Protein [Mass/Vol] 5.9 g/dL Low 6.0-8.0 [facility] Comment on above: Performed By: #### C OVFLR #### ([id number]) [address] [place] [address] 97658 Sodium [Moles/Vol] 135 mmol/L Normal 134-146 [facility] Comment on above: Performed By: #### C OVFLR #### [facility] ([id number]) [address] [place] [address] 28739 Urea nitrogen [Mass/Vol] 16 mg/dL Normal 5-27 [facility] Comment on above: Performed By: #### C OVFLR #### ([id number]) [address] [place] [address] 50632 Glucose Glucometer (BldC) [M ass/Vol]on 04-26-2024 Glucose [Mass/Vol] 118 mg/dL High 65-99 [facility] Glucose [Mass/Vol] 367 mg/dL High 65-99 [facility] BEDSIDE GLUCOSE LAB >500 Critically high 65-99 [facility] Comment on above: Result Comment: SEE LAB RESULTS FOR CONFIRMATION Glucose [Mass/Vol] 230 mg/dL High 65-99 [facility] Glucose [Mass/Vol] 106 mg/dL High 65-99 [facility] LIPASEon 04-26-2024 Lipase [Catalytic activity/Vol] 100 U/L High 17-40 [facility] Comment on above: Performed By: #### C OVFLR #### ([id number]) [address] [place] [address] 38677 Lactate (P dannie) [Moles/Vol]o n 04-26-2024 LACTATE W/REFLEX 1.7 mmol/L Normal 0.4-2.0 [facility] Comment on above: Result Comment: Result did not trigger repeat Lactate, re-order if needed. Performed By: #### 3 2133-1 #### ([id number])[address] [place] [address] 50184 MAGNESIUMon 04-26-2024 Magnesium [Mass/Vol] 1.9 mg/dL Normal 1.8-2.6 [facility] Comment on above: Result Comment: SPEC IMEN HEMOLYZED, RESULTS INCREASED Performed By: #### C OVFLR #### ([id number]) [address] [place] [address] 41452 Troponin I.cardiac High sens itivity method [Mass/Vol]on 04-26-2024 1 HOUR TROP I, HIGH SENSITIVITY 10 ng/L Normal <16 [facility] Comment on above: Performed By: #### C OVFLR #### ([id number]) [address] [place] [address] 32627 TROPONIN I, HIGH SENSITIVITY 9 ng/L Normal <16 [facility] Comment on above: Performed By: #### C OVFLR #### ([id number]) [address] [place] [address] 32212 ACUTE HEPATITIS PANELon ANTI HCV W/PCR REFLX Non-Reactive Normal NRCT [facility] Comment on above: Result Comment: If recent infection suspected, recommend repeat testing (>2 months). Ngdoub-xd-jlsrcg ratio is <0.80. Performed By: #### C BCA, 00457-6, BMP, 68828-5, 87496-3 #### ([id number]) [address] [place] [address] 86196 HEPATITIS A IGM Non-Reactive Normal [facility] Comment on above: Performed By: #### C BCA, 02716-9, BMP, 50764-5, 48218-3 #### ([id number]) [address] [place] [address] 55056 HEPATITIS B CORE IGM Negative Normal NEG [facility] Comment on above: Performed By: #### C BCA, 62100-9, BMP, 81358-0, 09659-7 #### ([id number]) [address] [place] [address] 59880 HEPATITIS B SURF AG Negative Normal NEG [facility] Comment on above: Performed By: #### C BCA, 35681-0, BMP, 56995-6, 51399-3 #### ([id number]) [address] [place] [address] 28368 CBC AND AUTO DIFFon 04-25-20 24 ABSOLUTE BASOPHIL 0.1 X10E9/L Normal 0.0-0.2 [facility] Comment on above: Performed By: #### Neymar PATEL, 29932-7, BMP, 53622-6, 91262-0 #### ([id number]) [address] [place] [address] 94275 ABSOLUTE NEUTROPHIL 12.8 X10E9/L High 1.5-6.6 [facility] Comment on above: Performed By: #### Neymar PATEL, 17990-9, BMP, 19041-9, 36220-7 #### ([id number]) [address] [place] [address] 21964 Basophils/100 WBC (Bld) 0.7 % Normal [facility] Comment on above: Performed By: #### Neymar PATEL, 72154-2, BMP, 70528-8, 95485-2 #### ([id number]) [address] [place] [address] 65171 Eosinophils (Bld) [#/Vol] 0.2 10*3/uL Normal 0.0-0.4 [facility] Comment on above: Performed By: #### Neymar PATEL, 41707-7, BMP, 63885-8, 55327-2 #### ([id number]) [address] [place] [address] 32136 Eosinophils/100 WBC (Bld) 1.3 % Normal [facility] Comment on above: Performed By: #### Neymar PATEL, 76355-8, BMP, 78501-3, 64235-7 #### ([id number]) [address] [place] [address] 03134 Erythrocyte distribution width (RBC) [Ratio] 14.9 % Normal 11.5-15.0 [facility] Comment on above: Performed By: #### Neymar PATEL, 86786-1, BMP, 23114-6, 72061-3 #### ([id number]) [address] [place] [address] 67043 Hematocrit (Bld) [Volume fraction] 45.4 % Normal 35-47 [facility] Comment on above: Performed By: #### Neymar PATEL, 73702-5, BMP, 22366-8, 77570-8 #### ([id number]) [address] [place] [address] 25614 Hemoglobin (Bld) [Mass/Vol] 15.7 g/dL High 11.7-15.5 [facility] Comment on above: Performed By: #### Neymar PATEL, 95999-0, BMP, 95227-8, 68925-6 #### ([id number]) [address] [place] [address] 75186 Lymphocytes (Bld) [#/Vol] 0.9 10*3/uL Low 1.0-3.5 [facility] Comment on above: Performed By: #### Neymar PATEL, 00624-3, BMP, 49258-0, 08825-7 #### ([id number]) [address] [place] [address] 38970 Lymphocytes/100 WBC (Bld) 6.2 % Normal [facility] Comment on above: Performed By: #### Neymar PATEL, 05427-1, BMP, 81529-3, 09427-8 #### ([id number]) [address] [place] [address] 99539 MCH (RBC) [Entitic mass] 30.8 pg Normal 27-34 [facility] Comment on above: Performed By: #### Neymar PATEL, 67632-7, BMP, 93055-6, 32984-9 #### ([id number]) [address] [place] [address] 19752 MCHC (RBC) [Mass/Vol] 34.6 g/dL Normal 32-36 [facility] Comment on above: Performed By: #### Neymar PATEL, 57996-0, BMP, 98737-7, 48192-1 #### ([id number]) [address] [place] [address] 24607 MCV (RBC) [Entitic vol] 89 fL Normal 80-100 [facility] Comment on above: Performed By: #### Neymar PATEL, 71610-6, BMP, 06178-0, 35207-7 #### ([id number]) [address] [place] [address] 66039 Monocytes (Bld) [#/Vol] 0.6 10*3/uL Normal 0-0.9 [facility] Comment on above: Performed By: #### Neymar PATEL, 06369-4, BMP, 07529-0, 34317-5 #### ([id number]) [address] [place] [address] 06515 Monocytes/100 WBC (Bld) 4.3 % Normal [facility] Comment on above: Performed By: #### Neymar PATEL, 90995-5, BMP, 84873-7, 90001-6 #### ([id number]) [address] [place] [address] 74604 Neutrophils/100 WBC (Bld) 87.5 % Normal [facility] Comment on above: Performed By: #### Neymar PATEL, 08685-9, BMP, 77646-6, 85244-8 #### ([id number]) [address] [place] [address] 19269 Platelet mean volume (Bld) [Entitic vol] 7.8 fL Normal 7-12 [facility] Comment on above: Performed By: #### C BCA, 73918-6, BMP, 36963-4, 83435-7 #### ([id number]) [address] [place] [address] 65906 Platelets (Bld) [#/Vol] 203 10*3/uL Normal 150-450 [facility] Comment on above: Performed By: #### Neymar BCA, 93582-8, BMP, 70878-2, 69084-5 #### ([id number]) [address] [place] [address] 62956 RBC COUNT 5.11 X10E12/L Normal 3.80-5.20 [facility] Comment on above: Performed By: #### Neymar BCA, 41670-7, BMP, 83684-7, 29049-9 #### ([id number]) [address] [place] [address] 17438 WBC (Bld) [#/Vol] 14.7 10*3/uL High 4.0-11.0 [facility] Comment on above: Performed By: #### Neymar BCA, 26240-5, BMP, 62560-9, 35615-5 #### ([id number]) [address] [place] [address] 01504 COMPREHENSIVE METABOLIC PANE Kemal 04-25-2024 Albumin [Mass/Vol] 3.6 g/dL Normal 3.2-5.3 [facility] Comment on above: Performed By: #### Neymar BCA, 40880-7, BMP, 03849-8, 03103-7 #### ([id number]) [address] [place] [address] 94525 ALP [Catalytic activity/Vol] 56 U/L Normal 39-130 [facility] Comment on above: Performed By: #### Neymar BCA, 97183-1, BMP, 56196-5, 57786-6 #### ([id number]) [address] [place] [address] 44947 ALT [Catalytic activity/Vol] 62 U/L High 0-31 [facility] Comment on above: Performed By: #### C BCA, 78056-4, BMP, 48397-9, 19679-7 #### ([id number]) [address] [place] [address] 36003 Anion gap [Moles/Vol] 8 mmol/L Normal 5-15 [facility] Comment on above: Performed By: #### C BCA, 97759-8, BMP, 17885-9, 64788-9 #### ([id number]) [address] [place] [address] 21572 AST [Catalytic activity/Vol] 38 U/L Normal 0-41 [facility] Comment on above: Performed By: #### Neymar BCA, 74627-0, BMP, 18630-2, 67703-5 #### ([id number]) [address] [place] [address] 90548 Bilirubin [Mass/Vol] 0.5 mg/dL Normal 0.3-1.2 [facility] Comment on above: Performed By: #### Neymar BCA, 90009-6, BMP, 87960-5, 19961-5 #### ([id number]) [address] [place] [address] 09890 Calcium [Mass/Vol] 6.5 mg/dL Crit[facility] 8[facility]5-10.5 [facility] Comment on above: Performed By: #### C BCA, 34204-7, BMP, 70661-3, 85101-8 #### ([id number]) [address] [place] [address] 26582 Chloride [Moles/Vol] 102 mmol/L Normal 98-109 [facility] Comment on above: Performed By: #### Neymar BCA, 48002-8, BMP, 96785-2, 91873-7 #### ([id number]) [address] [place] [address] 41653 CO2 [Moles/Vol] 29 mmol/L Normal 22-32 [facility] Comment on above: Performed By: #### C BCA, 06672-1, BMP, 97432-8, 43129-8 #### ([id number]) [address] [place] [address] 58234 Creatinine [Mass/Vol] 1.05 mg/dL High 0.40-1.00 [facility] Comment on above: Result Comment: METH OD TRACEABLE TO IDMS STANDARD Performed By: #### C BCA, 66300-2, BMP, 32493-9, 28067-6 #### ([id number]) [address] [place] [address] 55818 GFR/1.73 sq M.predicted among non-blacks MDRD (S/P/Bld) [Vol rate/Area] 57 mL/min/{1.73_m2} Low >59 [facility] Comment on above: Result Comment: Reported eGFR is based on the CKD-EPI 2020 equation that does not use a race coefficient. Performed By: #### C BCA, 33276-7, BMP, 01371-3, 87664-8 #### ([id number]) [address] [place] [address] 25670 Glucose [Mass/Vol] 147 mg/dL High 65-99 [facility] Comment on above: Performed By: #### C BCA, 32335-9, BMP, 62465-5, 10842-7 #### ([id number]) [address] [place] [address] 22696 Potassium [Moles/Vol] 3.3 mmol/L Low 3.5-5.0 [facility] Comment on above: Performed By: #### C BCA, 69530-4, BMP, 71450-2, 45276-2 #### ([id number]) [address] [place] [address] Protein [Mass/Vol] 6.6 g/dL Normal 6.0-8.0 [facility] Comment on above: Performed By: #### C BCA, 40496-5, BMP, 91833-9, 11566-9 #### ([id number]) [address] [place] [address] 49575 Sodium [Moles/Vol] 139 mmol/L Normal 134-146 [facility] Comment on above: Performed By: #### C BCA, 19089-1, BMP, 69192-0, 28502-8 #### ([id number]) [address] [place] [address] 13370 Urea nitrogen [Mass/Vol] 22 mg/dL Normal 5-27 [facility] Comment on above: Performed By: #### C BCA, 81429-9, BMP, 35049-7, 84690-8 #### ([id number]) [address] [place] [address] CTA ABD AND PELVISon CT CTA [...] Chapman MD on 04/25/2024 10:10 AM Normal [facility] CT CTA CHESTon 04-25-2024 CT CTA [...] Gaytan MD on 04/25/2024 9:54 AM Normal [facility] Glucose Glucometer (BldC) [M ass/Vol]on 04-25-2024 Glucose [Mass/Vol] 162 mg/dL High 65-99 [facility] LIPASEon 04-25-2024 Lipase [Catalytic activity/Vol] 54 U/L High 17-40 [facility] Comment on above: Performed By: #### C JORGE, 09335-4, BMP, 67099-9, 19568-3 #### ([id number]) [address] [place] [address] 96900 MAGNESIUMon 04-25-2024 Magnesium [Mass/Vol] 1.9 mg/dL Normal 1.8-2.6 [facility] Comment on above: Performed By: #### Neymar PATEL, 94025-4, BMP, 24091-1, 64363-3 #### ([id number]) [address] [place] [address] 56930 Natriuretic peptide B [Mass/ Vol]on 04-25-2024 Natriuretic peptide B (Bld) [Mass/Vol] 47 pg/mL Normal <100.0 [facility] Comment on above: Performed By: #### Neymar PATEL, 06380-5, BMP, 19162-6, 62091-7 #### ([id number]) [address] [place] [address] 63787 PROTIME AND INRon 04-25-2024 INR Coag (PPP) [Relative time] 1.0 {INR} Normal 0.8-1.1 [facility] Comment on above: Performed By: #### Neymar PATEL, 59511-1, BMP, 36765-3, 61646-2 #### ([id number]) [address] [place] [address] 87880 PT Coag (PPP) [Time] 11.9 s Normal 9.8-13.2 [facility] Comment on above: Result Comment: NEW REFERENCE RANGE Performed By: #### C JORGE, 87472-7, BMP, 23503-7, 57411-4 #### ([id number]) [address] [place] [address] 81370 Procalcitonin IA [Mass/Vol]o n 04-25-2024 PROCALCITONIN 0.08 ng/mL High <0.05 [facility] Comment on above: Result Comment: NOTE <0.50 ng/mL - Low risk of severe sepsis and/or septic shock. <2.00 ng/mL - Recommend retesting within 6-24 hours. >2.00 ng/mL - High risk of sepsis and/or septic shock. Performed By: #### C JORGE, 91058-7, BMP, 80518-6, 68079-4 #### ([id number]) [address] [place] [address] 63223 Troponin I.cardiac High sens itivity method [Mass/Vol]on 04-25-2024 1 HOUR TROP I, HIGH SENSITIVITY 10 ng/L Normal <16 [facility] Comment on above: Performed By: #### C OVFLR #### ([id number]) [address] [place] [address] 86774 TROPONIN I, HIGH SENSITIVITY 11 ng/L Normal <16 [facility] Comment on above: Performed By: #### C JORGE, 25951-7, BMP, 18902-0, 41107-4 #### ([id number]) [address] [place] [address] 42499 Vitamin D+Metabolites [Mass/ Vol]on 04-25-2024 VITAMIN D 25 HYD TOT 23.3 ng/mL Low 30-100 [facility] Comment on above: Result Comment: Vitamin D status 25 [place] Vitamin D Deficiency <20 ng/mL Insufficiency 20-29 ng/mL Sufficiency 30-100 ng/mL Toxicity >100 ng/mL NOTE: A pediatric reference range has not been established by the application processor of this kit. The [place] [employer] recommends a Vitamin D level of = or >20ng/mL in infants and children. Performed By: #### C BCA, 86999-9, BMP, 51624-6, 68340-1 #### ([id number]) [address] [place] [address] 38216 aPTT Coag (PPP) [Time]on aPTT Coag (Bld) [Time] 26 s Normal 26-37 [facility] Comment on above: Result Comment: NEW REFERENCE RANGE Performed By: #### C BCA, 92117-6, [facility], 26426-8, 34131-6 #### ([id number]) [address] [place] [address] 33666 Outside Recordson 04-21-2024 Outside Records [id number] #1.00OTGTIFF [facility] Outside Records [id number] [facility] [place] SWALLOW MOTILITY FUNCTION on 04-20-2024 FL [...] Granger MD on 04/20/2024 3:12 PM Normal [facility] CBC AND AUTO DIFFon 04-18-20 ABSOLUTE BASOPHIL 0.1 X10E9/L Normal 0.0-0.2 [facility] Comment on above: Performed By: #### C BCA, 38555-0, BMP, 39545-9, 16943-1 #### ([id number]) [address] [place] [address] 51807 ABSOLUTE NEUTROPHIL 7.4 X10E9/L High 1.5-6.6 [facility] Comment on above: Performed By: #### Neymar BCA, 73262-6, BMP, 67435-1, 55976-9 #### ([id number]) [address] [place] [address] 51921 Basophils/100 WBC (Bld) 0.7 % Normal [facility] Comment on above: Performed By: #### C BCA, 27938-1, BMP, 07293-5, 77727-3 #### ([id number]) [address] [place] [address] 01490 Eosinophils (Bld) [#/Vol] 0.0 10*3/uL Normal 0.0-0.4 [facility] Comment on above: Performed By: #### C BCA, 92156-6, BMP, 99535-0, 60655-0 #### ([id number]) [address] [place] [address] 06745 Eosinophils/100 WBC (Bld) 0.1 % Normal [facility] Comment on above: Performed By: #### Neymar BCA, 56169-0, BMP, 95646-0, 68195-9 #### ([id number]) [address] [place] [address] 18887 Erythrocyte distribution width (RBC) [Ratio] 14.9 % Normal 11.5-15.0 [facility] Comment on above: Performed By: #### Neymar PATEL, 65858-1, BMP, 97167-1, 93061-5 #### ([id number]) [address] [place] [address] 95368 Hematocrit (Bld) [Volume fraction] 40.3 % Normal 35-47 [facility] Comment on above: Performed By: #### Neymar PATEL, 58598-5, BMP, 46806-7, 03569-1 #### ([id number]) [address] [place] [address] 58847 Hemoglobin (Bld) [Mass/Vol] 13.5 g/dL Normal 11.7-15.5 [facility] Comment on above: Performed By: #### Neymar PATEL, 16305-0, BMP, 31463-4, 40677-9 #### ([id number]) [address] [place] [address] 79766 Lymphocytes (Bld) [#/Vol] 0.6 10*3/uL Low 1.0-3.5 [facility] Comment on above: Performed By: #### Neymar PATEL, 37594-9, BMP, 97586-4, 79275-5 #### ([id number]) [address] [place] [address] 98483 Lymphocytes/100 WBC (Bld) 6.9 % Normal [facility] Comment on above: Performed By: #### Neymar PATEL, 10159-5, BMP, 32806-7, 11084-3 #### ([id number]) [address] [place] [address] 15515 MCH (RBC) [Entitic mass] 30.5 pg Normal 27-34 [facility] Comment on above: Performed By: #### Neymar BCA, 47328-7, BMP, 08512-6, 17444-9 #### ([id number]) [address] [place] [address] 37596 MCHC (RBC) [Mass/Vol] 33.6 g/dL Normal 32-36 [facility] Comment on above: Performed By: #### Neymar BCA, 52451-4, BMP, 19182-8, 97702-5 #### ([id number]) [address] [place] [address] 84421 MCV (RBC) [Entitic vol] 91 fL Normal 80-100 [facility] Comment on above: Performed By: #### Neymar PATEL, 92497-2, BMP, 77466-4, 29992-9 #### ([id number]) [address] [place] [address] 25553 Monocytes (Bld) [#/Vol] 0.1 10*3/uL Normal 0-0.9 [facility] Comment on above: Performed By: #### Neymar PATEL, 85437-2, BMP, 71184-9, 82770-2 #### ([id number]) [address] [place] [address] 43087 Monocytes/100 WBC (Bld) 1.6 % Normal [facility] Comment on above: Performed By: #### Neymar BCA, 62784-4, BMP, 68930-3, 06933-8 #### ([id number]) [address] [place] [address] 97106 Neutrophils/100 WBC (Bld) 90.7 % Normal [facility] Comment on above: Performed By: #### Neymar BCA, 16077-5, BMP, 48176-4, 55374-1 #### ([id number]) [address] [place] [address] 78353 Platelet mean volume (Bld) [Entitic vol] 8.2 fL Normal 7-12 [facility] Comment on above: Performed By: #### Neymar PATEL, 16791-7, BMP, 82436-4, 64713-2 #### ([id number]) [address] [place] [address] 27962 Platelets (Bld) [#/Vol] 220 10*3/uL Normal 150-450 [facility] Comment on above: Performed By: #### Neymar PATEL, 92433-7, BMP, 04644-2, 01148-7 #### ([id number]) [address] [place] [address] 03866 RBC COUNT 4.44 X10E12/L Normal 3.80-5.20 [facility] Comment on above: Performed By: #### Neymar PATEL, 86069-8, BMP, 29108-6, 47860-7 #### ([id number]) [address] [place] [address] 31641 WBC (Bld) [#/Vol] 8.1 10*3/uL Normal 4.0-11.0 [facility] Comment on above: Performed By: #### Neymar PATEL, 61103-6, BMP, 80524-6, 42764-2 #### ([id number]) [address] [place] [address] 21222 COMPREHENSIVE METABOLIC PANE [facility] 04-18-2024 Albumin [Mass/Vol] 3.9 g/dL Normal 3.2-5.3 [facility] Comment on above: Performed By: #### Neymar PATEL, 29902-8, BMP, 18394-9, 98352-5 #### ([id number]) [address] [place] [address] 33079 ALP [Catalytic activity/Vol] 68 U/L Normal 39-130 [facility] Comment on above: Performed By: #### C BCA, 90263-8, BMP, 25269-3, 28342-3 #### ([id number]) [address] [place] [address] 39889 ALT [Catalytic activity/Vol] 31 U/L Normal 0-31 [facility] Comment on above: Performed By: #### Neymar BCA, 40348-5, BMP, 94148-4, 90409-2 #### ([id number]) [address] [place] [address] 96857 Anion gap [Moles/Vol] 11 mmol/L Normal 5-15 [facility] Comment on above: Performed By: #### Neymar BCA, 56182-8, BMP, 88765-0, 61063-8 #### ([id number]) [address] [place] [address] 06484 AST [Catalytic activity/Vol] 25 U/L Normal 0-41 [facility] Comment on above: Performed By: #### C BCA, 90427-4, BMP, 87512-1, 53027-0 #### ([id number]) [address] [place] [address] 64530 Bilirubin [Mass/Vol] 0.7 mg/dL Normal 0.3-1.2 [facility] Comment on above: Performed By: #### Neyamr BCA, 24395-9, BMP, 97172-5, 01016-1 #### ([id number]) [address] [place] [address] 54198 Calcium [Mass/Vol] 7.0 mg/dL Low 8.5-10.5 [facility] Comment on above: Performed By: #### C BCA, 17248-3, BMP, 72963-2, 55627-7 #### ([id number]) [address] [place] [address] 08840 Chloride [Moles/Vol] 98 mmol/L Normal 98-109 [facility] Comment on above: Performed By: #### C BCA, 59246-3, BMP, 40581-2, 85202-4 #### ([id number]) [address] [place] [address] 60713 CO2 [Moles/Vol] 24 mmol/L Normal 22-32 [facility] Comment on above: Performed By: #### C BCA, 97575-7, BMP, 54402-4, 22475-9 #### ([id number]) [address] [place] [address] 58729 Creatinine [Mass/Vol] 1.03 mg/dL High 0.40-1.00 [facility] Comment on above: Result Comment: METH OD TRACEABLE TO IDMS STANDARD Performed By: #### C JORGE, 76394-0, BMP, 01595-4, 26829-9 #### ([id number]) [address] [place] [address] 64638 GFR/1.73 sq M.predicted among non-blacks MDRD (S/P/Bld) [Vol rate/Area] 58 mL/min/{1.73_m2} Low >59 [facility] Comment on above: Result Comment: Reported eGFR is based on the CKD-EPI 2020 equation that does not use a race coefficient. Performed By: #### C BCA, 67635-4, BMP, 82543-9, 90922-6 #### ([id number]) [address] [place] [address] 44049 Glucose [Mass/Vol] 391 mg/dL High 65-99 [facility] Comment on above: Performed By: #### C BCA, 07206-6, BMP, 37724-5, 98488-1 #### ([id number]) [address] [place] [address] 83191 Potassium [Moles/Vol] 3.8 mmol/L Normal 3.5-5.0 [facility] Comment on above: Performed By: #### C BCA, 34972-2, BMP, 79405-1, 10834-0 #### ([id number]) [address] [place] [address] 13518 Protein [Mass/Vol] 6.9 g/dL Normal 6.0-8.0 [facility] Comment on above: Performed By: #### C BCA, 19249-5, BMP, 74418-7, 47917-4 #### ([id number]) [address] [place] [address] 30419 Sodium [Moles/Vol] 133 mmol/L Low 134-146 [facility] Comment on above: Performed By: #### C BCA, 24969-5, BMP, 56970-5, 63011-4 #### ([id number]) [address] [place] [address] 25558 Urea nitrogen [Mass/Vol] 26 mg/dL Normal 5-27 [facility] Comment on above: Performed By: #### C BCA, 02373-6, BMP, 79835-0, 15980-6 #### ([id number]) [address] [place] [address] 30477 Fibrin D-dimer DDU (PPP) [Ma ss/Vol]on 04-18-2024 D DIMER 179 ng/mL DDU Normal <255 [facility] Comment on above: Result Comment: Results <255 ng/mL DDU: The presence of a VTE can safely be excluded with a negative D-Dimer result and Wells score. A negative result doesn't exclude the possibility of DIC. The test be repeated along with other diagnostic tests if the patient's symptoms persist or worsen. [email or web address] Performed By: #### C BCA, 00007-6, BMP, 44736-3, 11307-9 #### ([id number]) [address] [place] [address] 57011 MAGNESIUMon 04-18-2024 Magnesium [Mass/Vol] 1.9 mg/dL Normal 1.8-2.6 [facility] Comment on above: Performed By: #### Neymar PATEL, 43825-7, BMP, 38120-2, 41626-4 #### ([id number]) [address] [place] [address] 33892 Troponin I.cardiac High sens itivity method [Mass/Vol]on 04-18-2024 1 HOUR TROP I, HIGH SENSITIVITY 9 ng/L Normal <16 [facility] Comment on above: Performed By: #### Neymar PATEL, 51053-5, BMP, 35475-8, 29223-8 #### ([id number]) [address] [place] [address] 48610 TROPONIN I, HIGH SENSITIVITY 8 ng/L Normal <16 [facility] Comment on above: Performed By: #### Neymar PATEL, 06972-4, BMP, 75933-2, 74751-4 #### ([id number]) [address] [place] [address] 95635 Consultation/Specialist Note on 03-31-2024 Consultation/Specialist Note [id number] Summaryon 03-30-2024 Coding Summary HTMLBase 64 YbhlkztlZFg3gPx+PGhl YWQ+NW3ZLTQoF98tmYAz cB7gU7YSKGgUKdywTKBA FUdFFcTgeuCbSA6txMQa ZXJu IC8+VW5iYFOkBqdfxOWg j4L7gJK2U77rxz7jKYqz lNF5WMLnPvMwkpphz5bd mQn0JJsrMabbYwZo HTVosM14VHJ1aU95Az39 hKUcpVNbg2nxgXt9QmSg XHZiNWN9mAwcKLlwd8Au ESOpS90ybTImt3W1 IGNvbGxhcHNlOyBlbXB0 nC5cVLdgpjpef6gdpgdx Pyi1ql42bSTiu2O5fZC5 Z3XsftI5TAQkeWHp IrhgmQZEzL3qeuklz1bu zpyyZlOtPQDhUOd5ITb0 QBIcaCwdUhZzZL29NGZ0 JBNxfxNpV4BeYHQe cMmjBuB4p3O1Gr6TD7GZ BkarE6RIPOUDSRzcoDZ+ WJ46du07O3LmRoruZwf9 DHPyWRO4lLP8yW1p PDWtISugy7M2dUJ6X1Ey hnMkrh4at1bgHRIcXUfj N90ysHDgn6B3WFOdjGR2 VPStcPnoGiOatN80 Oyc+VYPztVtvv0TvLnri o8gdc7ccqJl6HbspMPSr qqTvqYadRVO3n5MxCh0l OHFvbYT4lIW0wB2q ZdTzCaD1XXeaE487NfNh sABoDmcxK07gZ2ZkjEX+ QATzTja3EIJcfGnqFO7g B5NxCZPzjmarvORo fEgeTZ1jOTPdsgurGZGd wU2eFXNkY1b5JyCyRcV8 IPsrM4PgYWSfzeqkAn82 pU3vVuHaHaU5KFda R5LpebJ8TLCenJSaVXxk WLD5K20ft1F6SEMvWKHt CPS0oAN5fV5jkRdovqyt bGVmdDsgdmVydGlj APbyHUkcW104UMTohBby PkNvZGluZyBEYXRlOiAg MDYvMDUvMjAyNDwvdGQ+ XAHbARO6wEnhCTZl fVMbGWmcDi1ulPrqzPjy VN2qUBChiqtsMWGfrT1s PCVkxIIpmQgzYK9yNPBh vzqhn960CtEgBOA8 OCBaqUNlF9FqkX3zBuWm UFCxMAJiN8PugEEuUXbu E627UArpNeA2WGIvlvId F0VoMPIqkPatKwL9 z8W6Ru2Hs8IblkduS3Cp zNJrIkUwFgezPZi5U8Mm PjwvdHI+YI02MJQwSY51 LLr7PYY6eKivCTea NRXqV8GfhL7sBmOxAQMn ZGRkOyc+PHRhYmxlIHdp ZHRoPScxMDAlJyBzdHls JC1kGk1oHMEcAFPd hOstbAPqBxXic9hqBUHi ZVlcIZ4irDucA7IuwUY3 ZPOzk7n4Zn16H14vI2Lx dXA+HNEniQU8tXN2 pR8nHuLkVhH4HTxhC957 GxFpmVGnSrteq5hfv9hd hCe3DyZ4EEFtsgVvuTfh CVR9i8DmLn87O48v IHdpZHRoPSIxNSUiIHZh oUmfih7hsX8xNh9+PGNv dEL0pVO4mH6pYkIxTnR8 OQveQ958AhSrkHYc Gusfz5xln7ojqWo5AzWp CRIhshYswGtwPIT1x4Al Il45Z3SnyTmhm7DdRdb4 ru51vKDzm0F3oQY6 A5EiDOEfaqclhWXnnPkd DT0vZFLwvbbqVJUngN6a KNGxI1v9VsFdAtS8UHnj T5HeitL5HQYgpBRf NCKhkUEHoI3rtfzeh1nh gzbfVoZbYANqQQv5PMp8 HFLzfRjuFqVzESO6BpA7 NVO8vIWkzN2ouLko lcimgF2uIje+VOT5xBSp mWCUTN5oTjzdzQV+PHRk VTY3kQcgREmtSVSshD4q EGNlT3r7RfIxFgF3 SMhhW2RtyuA6ITRwxCVt OVMdtPDHoH9nbqxus6fy zrvaOsRxRYDwTZc9VQe2 LWFsaWduOiBsZWZ0 GfB5NWS4oZSmjA2sdHgd pzdphM1vQmh+QmlydGgg OFH1QVo7M8AhHvv2FBOt sHvpPZ8ynJOdWXak Bf5uiRgvpBvaAB9fSCJz ercor153JfMlp6vdIQLq hTNbJZjvFHZ9P10bi8X0 ZBLnAUZiAXB7zEB9 sF9jwQwsolanlSYlbUdj ctTevHoyDUrwGUoxU933 MDWtiGofDpUuPLs1N9Ly Fcc9GRJnfLlxNW1e tZKbHJgjRg4giHurjDif FM2aGGZrfdtxe325UgLv s7chZFIxmHNiVVcjRIA7 A44kr1O2ABCzDERw CAX3uBP5jD1xkYsxctkq bGVmdDsgdmVydGljYWwt JMcfP618DDXpoUmjOaFu hIe7W0ObZtk1AOWo rWfrLH4acMGrIJfzMu2v sEitbCfqUF7aESTtyoxb o189SpUiz1ujNPElmGLi HXyvFTS5V98dq0T1 KUJxLKJmKCE7tUW4tB9m bGlnbjogbGVmdDsgdmVy tZvoPXfyEQbtU369DWKf cDsnPlBhdGllbnQg BUuhQOn7R1NeRhrjkLH+ ED11XDIeCT96cOCyaDWv u7wkbOv6LbRrHTWcCXB1 dWwsSVcnf0ChFXPp K29skPJdf5Y9LJYcnTed iVOzHvRsyBP9tS7dCVai ubvvu9saeizlJjwsy2rs zw00tV05S61iGNui ZHRoPSIzMCUiIHZhbGln sx6xqG9pKn6+PGNvbCB3 tJV2sY8uBUOmZhU9CPyv Y500NtWefEFdDsnf j5loj3covUw1VrZ4TRGd lrNtvZvmMOM0f7ZrBx52 E31mBTlxSDJjSXOdYDMe WAVjfRgbsd3ooT3x Ii8+HSMfjVN5eEB1pK6a ZqDdXgO2LAmqE857UcLh tZXeMelhD97cI6JdiMQ+ TZYzLqf0NEXwnQbv YP9mnHWoVHuoGt4aPSR4 NcOwInQxIUjrN6KdNUEg mxntksruiTT9CBToYMVb zJ04Uv3jiAtkLSHy vEYKnK6dcdjed1farweu WaRfBJUsVVh9TUr5FEJc fKxjBwOzCEE9BgZ1QLM9 kNTgyH6dhEppfbbb aG8cS0JmEVSdrwwkLa66 sT0mGlAvTnK6DBecHzh+ WT3KSHNXVAITRfZVIGBk UzwvdGQ+PHRkIHN0 pWywHFexYWQakS5qGGNs W4p5CeWaOyJ4CLxhY5Rj RESijqpsQg17hI1sArGu DaH0HDzmF1XgnoF1 AVGjcAHuSVktWLU4Z83k e9I4JTQxHJBqDWJ9xEX4 oI4lcRbrjohrvOHdiZuk dmVydGljYWwtYWxp T899GVWgjOuhCgQqKwKa SyY4GNC3U8MhOmd5HILd jZpoYO7iqNPjHOeuDx1o iQqvfLpvPP9vVRPl avjwAXEgaB9xEVSuyPKc eWocRL5hMMKulvtza081 IjQmFNG8BAGoeDVyZ1Hq dO4rGbWfZYGdSGOt C9AswFSyFFxpL593UFdc BbN2NNWsdgZvS1DcRIQr nFfiQyB2v1M4Ne84XUTH ZWFyczwvdGQ+PHRk FFU5xVjsDOguQXPciY2o UJZoO1e2OlTnDvR7LWks D1MgBZYodelvCr89aW7f DyAcNpE9XBiiX5Lc nhL2IHAbkHRnGPbqJNO0 M80od0U4EHBkCWRmWJA2 mHR1iD3rjZznkzaqcNWg dDsgdmVydGljYWwt HLblD304SZFesAodHpFG TUFMRTwvdGQ+PHRkIHN0 sAcsMWokDBHanU9jNZDk H7i4YlXfWiB9WTso I4RwMAIihkknXj82nE4c QiVcZgZ7VJmaQ9BwwtC7 PZIdhSEcSNwuULD8J68w m4F4LMXqJEKpNFO3 eMQ3fK2rsHpacjtaqICu dDsgdmVydGljYWwtYWxp Y301VEVwmIltPy5GSX11 WS27Q3JsDrvslQBp bGU+PHRhYmxlIHdpZHRo PVziXYAuJqBozLaqID2r Cy3sCKGhLOYwaHkdaMLa UjJkn5osQVLxRPjk KA9vhVdbO5PhlHM0WBVw x0f9Vr83V14xK0LunQL+ QYEipPS9xHL0mE0fIzOh EdG0FFbwT315VsYm oKNcEcqjc3bac9xypWd7 IjMwJSIgdmFsaWduPSJ0 m8KcRr66I34jVEceLFVf PSIyMCUiIHZhbGln ux0kiU0tKp6+PGNvbCB3 wLL1xZ0fQvGfJbN4QRdm J742FxIgiTQrKxuuA38z L4QcyAK+PHRyPjx0 NQErkFfkLR7iyEXzNXur Yn0lBDU8ImUvWjFjWLbq H9KlQKNqgtmjnlmnmTU2 FRAmNOZokB21Zh9n dXhuNm6sJBVeLRT3OQJm aVYfZ1CznU3yDyGoZBQq QVIjH9LkwENpOWmeL489 ACsqNkK1WMHhjkUn H2OhNDYfwJufUiI0n0L0 Ov6DiXamjCIgJY7lUtZd GGd8Z6GjBri4TKIkcLab AF4lnNDsBOolUr0i mFiiyBjzXB1mWRQegijp s795TtPeu7qzFDSbjMNt NIojHTE7J40cy8P0OQMz ATCiWOY5jLG0dV7p bGlnbjogbGVmdDsgdmVy gJdeYNdcFJzcZ203AVPv hGtmSzWFPyq9O9XwBvy6 IAXjqUrfOD9pdKFr OIkxWy5uzVpbqEzzAT9f CCLilrwap102KtIcr2yh IUZpzLEcTWzvQHT2K94j g7F4VIBdVIQnWES4 hSW5kA6yuTxaaopheINq dDsgdmVydGljYWwtYWxp N955FUGheDgvPj1DGfv8 N2LbAzt5FHShwRfo XN0vlMKgDEakHs1qkLlw dCetZZ6pGCLgmoaps906 TuLhm0mkLFMmaMEcWKwa VMG9S38al8T5NDKn DTZfSLZ7mCO3bB6abYmc bjogbGVmdDsgdmVydGlj TBauAOhpO659DXLsnFxo PlBheWVyOjwvdGQ+ HN65fz62T3GzDhzhKxg5 PGObNHO5wHZ0qP2lCMNj UVjqn7R7oJX3Y3GswxVo at9wx4gdKVGcOAwr Y29 (more content not included)... [facility] Reminder Messageson 03-23-20 24 Reminder Messages - From: MIGUEL BROCK DO To: [facility] Clinical Pool ([facility]); Sent: 03/22/2024 16:38:55 EDT ! [...] Signed on: 03/24/2024 14:53 EDT] Erlinda Odom [facility] Reminder Messages - From: MIGUEL BROCK DO To: [facility] [facility] ([facility] Sent: 03/22/2024 16:36:57 EDT ! Show up: 03/22/2024 16:36:57 EDT Subject: Results Follow Up Actions: Call the patient with result(s) Due Date/Time: 03/23/2024 16:36:00 EDT Reminder Comments: looks good birads 2 recheck 1 year Results: Date Result Type Result Name 03/22/2024 16:30 Radiology US Breast Left Complete. lvm with results and recommendations [facility] Reminder Messages - From: MIGUEL BROCK DO To: [facility] Clinical Pool ([facility]); Sent: 03/22/2024 16:38:13 EDT ! Show up: 03/22/2024 16:38:13 EDT Subject: Results Follow Up Actions: Call the patient with result(s) Due Date/Time: 03/23/2024 16:37:00 EDT Reminder Comments: looks good birads 2 repeat in 1 year Results: Date Result Type Result Name 03/22/2024 16:25 Radiology [place] Mammo Diagnostic 3D Bilateral. LVM with results and recommendations Normal [facility] Mammo Diagnostic 3D Bilat eral.on 03-22-2024 [facility] Mammo Diagnostic 3D Bilateral. MAMMOGRAM DIAGNOSTIC 3-D [...] Mildly scattered benign-appearing calcifications bilaterally. R2 image [employer] Developer was utilized for this study. IMPRESSION: No [...] 2-Benign finding Recommendation: Normal interval follow-up Normal [facility] US Breast Left Complete.on 0 03-22-2024 US [...] BI-RADS Category 2: Benign. Final Dictated by: iTti Chi MD Dictated DT/TM: 03/22/24 3:35 Signed (Electronic Signature): Titi Chi MD 03/22/24 4:28 pm Technologist: SMITHA DIEGO [facility] Outside [facility] 03-14-2024 Outside Records [id number] #1.00[facility] - Other Lab [facility] - Other Lab Results [id number] [facility](CONCENTRATED)on 03-01-2024 Mycobacterium sp identified Org specific cx Nom (Unsp spec) SPECIMEN NOTES SPECIMEN 1 AFB SMEAR NO ACID FAST BACILLI (CONCENTRATED SMEAR) CULTURE RESULTS NO ACID FAST BACILLI ISOLATED IN 8 WEEKS Normal [facility] Comment on above: Performed By: #### 5 43-9 ####[facility] ([id number])[address] [address] AND DIFFon 2023 BODY FLUID COMMENT Interpreta tion-------- Normal [facility] Comment on above: Result Comment: Refe rence values for this fluid type are undefined, as fluid accumulation is considered abnormal. Assorted lining cells present. Performed By: #### B FCT #### [facility] ([id number]) [address] [place] [address] FLUID CLARITY CLEAR Normal [facility] Comment on above: Performed By: #### B FCT #### [facility] ([id number]) [address], [address] [place] [address] FLUID COLOR COLORLESS Normal [facility] Comment on above: Performed By: #### B FCT #### [facility] ([id number]) [address] [place] [address] FLUID LYMPHOCYTE 15 % Normal [facility] Comment on above: Performed By: #### B FCT #### [facility] ([id number]) [address], [address] [place] [address] FLUID NEUTROPHILS 50 % Normal [facility] Comment on above: Performed By: #### B FCT #### [facility] ([id number]) [address] [place] [address] 42 /uL Normal [facility] Comment on above: Performed By: #### B FCT #### [facility] ([id number]) [address] [place] [address] FLUID SPECIMEN TYPE BRONCHOALVEOLAR LAVAGE Normal [facility] Comment on above: Result Comment: RIGH T LUNG, MIDDLE LOBE Performed By: #### B FCT #### [facility] ([id number]) [address] [place] [address] MACROPHAGES 35 % Normal [facility] Comment on above: Performed By: #### B FCT #### [facility] ([id number]) [address] [place] [address] 38 /uL Normal [facility] Comment on above: Performed By: #### B FCT #### [facility] ([id number]) [address] [place] [address] Cytologyon 03-01-2024 Cytology Normal [facility] Comment on above: Result Comment: [facility] [address] [place] [address] Cytology Consultation Patient Name:JAZZMINE PATEL:1950 (Age: 73)Gender:FTaken:5/7/2024Reported:03/03/2024 10:42Physician(s):EILEEN FONSECA DO ([phone])Copy To: Rec. #:[id number]: #[id number] Final Cytologic Diagnosis 1. 4L fine needle aspirate: No malignant epithelial cells identified. Adequate lymphoid sample 2. Right middle lobe bronchoalveolar lavage: No malignant cells identified. k/03/03/2024 [place] [address], License number: [id number].Electronically Signed Out By Sangeeta German MD Clinical History Adenocarcinoma of lingula. lung cancer, need for staging Rapid On Site Interpretation 1. 4L fine needle aspirate: Passes 1-3: Negative, adequate lymphoid cells Dr. Cortes Interpretation provided at [facility], [address] [place] [address]. Gross Description 1.Prepared in Endoscopy were 6 [...] 4L fine needle aspirate Cell block for Non-back feeder plywood layup line (M), Level 2 H&E, Slides Made x 6 2: Right middle lobe bronchoalveolar lavage Cell block for Non-back feeder plywood layup line (M), Level 2 H&E, Non WHEEL TRUER ThinPrep Fee Code(s): 1; 42584, 86808, 19605 2; 69624, 02512 FUNGAL CULTUREon 03-01-2024 Fungus identified Cx Nom (Unsp spec) SPECIMEN NOTES SPECIMEN 1 FUNGAL SMEAR NO FUNGAL ELEMENTS SEEN ON CONCENTRATED SMEAR CULTURE RESULTS NO FUNGUS ISOLATED AFTER 4 WEEKS Normal [facility] Comment on above: Performed By: #### 5 80-1 ####[facility] ([id number])[address] [place] [address], [address] [address] Glucose Glucometer (BldC) [M ass/Vol]on 03-01-2024 Glucose [Mass/Vol] 124 mg/dL High 65-99 [facility] LOWER RESPIRATORY CULTUREon 03-01-2024 Bacteria identified Respiratory [...] endocarditis). PENICILLIN(IV,nonmen ing.) S 1 F Susceptible [facility] Comment on above: Performed By: #### 6 24-7 ####[facility] ([id number])0 [facility], [address] [place] [address] BASIC METABOLIC PANLon 02-25 Anion gap [Moles/Vol] 10 mmol/L Normal 5-15 [facility] Comment on above: Performed By: #### C BCA, 24419-1, BMP, 20880-4, 85682-8 #### ([id number]) [address] [place] [address], [place] [address] Calcium [Mass/Vol] 8.5 mg/dL Normal 8.5-10.5 [facility] Comment on above: Performed By: #### C BCA, 94136-2, BMP, 22604-4, 50662-0 #### ([id number]) [address] [place] [address] 35823 Chloride [Moles/Vol] 99 mmol/L Normal 98-109 [facility] Comment on above: Performed By: #### C BCA, 00538-3, BMP, 71503-9, 93650-2 #### ([id number]) [address] [place] [address] 03685 CO2 [Moles/Vol] 32 mmol/L Normal 22-32 [facility] Comment on above: Performed By: #### C JORGE, 23808-7, BMP, 37176-8, 10536-1 #### ([id number]) [address] [place] [address] 84272 Creatinine [Mass/Vol] 0.90 mg/dL Normal 0.40-1.00 [facility] Comment on above: Result Comment: METH OD TRACEABLE TO IDMS STANDARD Performed By: #### C JORGE, 13618-5, BMP, 39709-8, 01780-7 #### ([id number]) [address] [place] [address] 05012 GFR/1.73 sq M.predicted among non-blacks MDRD (S/P/Bld) [Vol rate/Area] 68 mL/min/{1.73_m2} Normal >59 [facility] Comment on above: Result Comment: Reported eGFR is based on the CKD-EPI 2020 equation that does not use a race coefficient. Performed By: #### C BCA, 18348-3, BMP, 70679-7, 25294-4 #### ([id number]) [address] [place] [address] 68778 Glucose [Mass/Vol] 92 mg/dL Normal 65-99 [facility] Comment on above: Performed By: #### C BCA, 34536-3, BMP, 32224-8, 73126-0 #### ([id number]) [address] [place] [address]24 Potassium [Moles/Vol] 4.0 mmol/L Normal 3.5-5.0 [facility] Comment on above: Performed By: #### Neymar BCA, 20672-2, BMP, 68160-5, 80306-9 #### ([id number]) [address] [place] [address] 98716 Sodium [Moles/Vol] 141 mmol/L Normal 134-146 [facility] Comment on above: Performed By: #### Neymar BCA, 08602-5, BMP, 40646-0, 99349-4 #### ([id number]) [address] [place] [address] 60083 Urea nitrogen [Mass/Vol] 21 mg/dL Normal 5-27 [facility] Comment on above: Performed By: #### Neymar BCA, 82377-6, BMP, 85267-3, 69667-4 #### ([id number]) [address] [place] [address] 62117 CBC AND AUTO DIFFon 02-26-20 24 ABSOLUTE BASOPHIL 0.1 X10E9/L Normal 0.0-0.2 [facility] Comment on above: Performed By: #### Neymar BCA, 06101-1, BMP, 43967-6, 48297-9 #### ([id number]) [address] [place] [address] 60959 ABSOLUTE NEUTROPHIL 3.8 X10E9/L Normal 1.5-6.6 [facility] Comment on above: Performed By: #### Neymar BCA, 66195-2, BMP, 68723-5, 32168-7 #### ([id number]) [address] [place] [address] 46112 Basophils/100 WBC (Bld) 1.2 % Normal [facility] Comment on above: Performed By: #### C JORGE, 93759-5, BMP, 95619-6, 02131-9 #### ([id number]) [address] [place] [address] 91647 Eosinophils (Bld) [#/Vol] 0.2 10*3/uL Normal 0.0-0.4 [facility] Comment on above: Performed By: #### C JORGE, 89514-0, BMP, 55432-4, 25751-0 #### ([id number]) [address] [place] [address] 77352 Eosinophils/100 WBC (Bld) 2.9 % Normal [facility] Comment on above: Performed By: #### C JORGE, 54680-7, BMP, 97230-7, 54648-5 #### ([id number]) [address] [place] [address] 18893 Erythrocyte distribution width (RBC) [Ratio] 14.3 % Normal 11.5-15.0 [facility] Comment on above: Performed By: #### C JORGE, 63422-6, BMP, 46933-3, 45005-5 #### ([id number]) [address] [place] [address] 22925 Hematocrit (Bld) [Volume fraction] 42.1 % Normal 35-47 [facility] Comment on above: Performed By: #### C BCA, 19368-6, BMP, 52907-9, 45105-9 #### ([id number]) [address] [place] [address] 82169 Hemoglobin (Bld) [Mass/Vol] 14.4 g/dL Normal 11.7-15.5 [facility] Comment on above: Performed By: #### C BCA, 56410-9, BMP, 15673-5, 95421-1 #### ([id number]) [address] [place] [address] 75729 Lymphocytes (Bld) [#/Vol] 2.3 10*3/uL Normal 1.0-3.5 [facility] Comment on above: Performed By: #### Neymar PATEL, 22707-2, BMP, 40090-3, 87882-6 #### ([id number]) [address] [place] [address] 86157 Lymphocytes/100 WBC (Bld) 33.4 % Normal [facility] Comment on above: Performed By: #### Neymar PATEL, 14777-4, BMP, 37819-8, 79595-8 #### ([id number]) [address] [place] [address] 83525 MCH (RBC) [Entitic mass] 30.3 pg Normal 27-34 [facility] Comment on above: Performed By: #### C JORGE, 96623-0, BMP, 33066-3, 38590-8 #### ([id number]) [address] [place] [address] 87519 MCHC (RBC) [Mass/Vol] 34.1 g/dL Normal 32-36 [facility] Comment on above: Performed By: #### Neymar PATEL, 89527-4, BMP, 35544-9, 30785-0 #### ([id number]) [address] [place] [address] 69949 MCV (RBC) [Entitic vol] 89 fL Normal 80-100 [facility] Comment on above: Performed By: #### Neymar PATEL, 42356-8, BMP, 86488-0, 17487-2 #### ([id number]) [address] [place] [address] 55604 Monocytes (Bld) [#/Vol] 0.5 10*3/uL Normal 0-0.9 [facility] Comment on above: Performed By: #### Neymar BCA, 24320-3, BMP, 11389-5, 49250-1 #### ([id number]) [address] [place] [address] 38480 Monocytes/100 WBC (Bld) 7.1 % Normal [facility] Comment on above: Performed By: #### Neymar BCA, 03778-4, BMP, 27942-2, 85470-0 #### ([id number]) [address] [place] [address] 04031 Neutrophils/100 WBC (Bld) 55.4 % Normal [facility] Comment on above: Performed By: #### Neymar PATEL, 43807-5, BMP, 53440-3, 13730-5 #### ([id number]) [address] [place] [address] [place] [address] Platelet mean volume (Bld) [Entitic vol] 9.1 fL Normal 7-12 [facility] Comment on above: Performed By: #### Neymar PATEL, 70145-6, BMP, 95675-2, 91012-7 #### ([id number]) [address] [place] [address] 44023 Platelets (Bld) [#/Vol] 252 10*3/uL Normal 150-450 [facility] Comment on above: Performed By: #### Neymar BCA, 45337-8, BMP, 04139-0, 97198-9 #### ([id number]) [address] [place] [address] 25788 RBC COUNT 4.73 X10E12/L Normal 3.80-5.20 [facility] Comment on above: Performed By: #### Neymar PATEL, 92507-3, BMP, 21754-7, 68156-7 #### ([id number]) [address] [place] [address] 74366 WBC (Bld) [#/Vol] 6.9 10*3/uL Normal 4.0-11.0 [facility] Comment on above: Performed By: #### C JORGE, 21375-1, BMP, 19750-6, 55816-6 #### ([id number]) [address] [place] [address] 03496 HGB A1C (GLYCO-HGB)on 2023 Glucose [Mass/Vol] 140 mg/dL Normal [facility] Comment on above: Performed By: #### Neymar PATEL, 74070-7, MDITRY, 04268-6, 81783-2 #### ([id number]) [address] [place] [address] 06147 HbA1c (Bld) [Mass fraction] 6.5 % High 4.4-5.6 [facility] Comment on above: Result Comment: NOTE ADA Guidelines Result HgbA1c Normal : less than 5.7 % Prediabetes : 5.7 % to 6.4 % Diabetes : > 6.4 % Use with caution in patients with abnormal hemoglobin variants as the half-life of red blood cells and in vivo glycation rates are affected. Performed By: #### Neymar PATEL, 33903-9, DMITRY, 12023-4, 84956-2 #### ([id number]) [address] [place] [address] 20013 PROTIME AND INRon 02-26-2024 INR Coag (PPP) [Relative time] 1.0 {INR} Normal 0.8-1.1 [facility] Comment on above: Performed By: #### Neymar PATEL, 97483-9, BMP, 45234-2, 95988-2 #### ([id number]) [address] [place] [address], [place] [address] PT Coag (PPP) [Time] 11.2 s Normal 9.8-13.2 [facility] Comment on above: Result Comment: NEW REFERENCE RANGE Performed By: #### C BCA, 09309-3, BMP, 16329-4, 39308-3 #### ([id number]) [address] [place] [address] 69652 aPTT Coag (PPP) [Time]on aPTT Coag (Bld) [Time] 36 s Normal 26-37 [facility] Comment on above: Result Comment: NEW REFERENCE RANGE Performed By: #### C BCA, 16517-8, BMP, 48388-2, 26172-7 #### ([id number]) [address] [place] [address] 17067 BASIC METABOLIC PANLon 02-22 Anion gap [Moles/Vol] 12 mmol/L Normal 5-15 [facility] Comment on above: Performed By: #### C BCA, 92204-0, BMP, 84831-1, 43771-8 #### ([id number]) [address] [place] [address] 66845 Calcium [Mass/Vol] 8.0 mg/dL Low 8.5-10.5 [facility] Comment on above: Performed By: #### C BCA, 67002-0, BMP, 95370-2, 71053-4 #### ([id number]) [address] [place] [address] 51548 Chloride [Moles/Vol] 100 mmol/L Normal 98-109 [facility] Comment on above: Performed By: #### C BCA, 33065-4, BMP, 86575-1, 10376-9 #### ([id number]) [address] [place] [address] 03729 CO2 [Moles/Vol] 29 mmol/L Normal 22-32 [facility] Comment on above: Performed By: #### C BCA, 43997-2, BMP, 26451-7, 97968-9 #### ([id number]) [address] [place] [address] 76911 Creatinine [Mass/Vol] 0.88 mg/dL Normal 0.40-1.00 [facility] Comment on above: Result Comment: METH OD TRACEABLE TO IDMS STANDARD Performed By: #### C BCA, 46117-0, BMP, 64388-3, 64741-2 #### ([id number]) [address] [place] [address] 62394 GFR/1.73 sq M.predicted among non-blacks MDRD (S/P/Bld) [Vol rate/Area] 70 mL/min/{1.73_m2} Normal >59 [facility] Comment on above: Result Comment: Reported eGFR is based on the CKD-EPI 2020 equation that does not use a race coefficient. Performed By: #### C BCA, 72189-6, BMP, 05533-4, 08073-4 #### ([id number]) [address] [place] [address] 88089 Glucose [Mass/Vol] 129 mg/dL High 65-99 [facility] Comment on above: Performed By: #### C BCA, 09677-3, BMP, 69214-1, 91808-6 #### ([id number]) [address] [place] [address] 80840 Potassium [Moles/Vol] 4.1 mmol/L Normal 3.5-5.0 [facility] Comment on above: Performed By: #### C BCA, 93981-7, BMP, 20368-6, 78208-5 #### ([id number]) [address] [place] [address] 51019 Sodium [Moles/Vol] 141 mmol/L Normal 134-146 [facility] Comment on above: Performed By: #### C BCA, 68076-4, BMP, 13167-5, 14717-1 #### ([id number]) [address] [place] [address] 80584 Urea nitrogen [Mass/Vol] 16 mg/dL Normal 5-27 [facility] Comment on above: Performed By: #### C BCA, 76212-5, BMP, 93080-9, 03490-7 #### ([id number]) [address] [place] [address] 22862 Consultation/Specialist Note on 02-23-2024 Consultation/Specialist Note [id number] #1.00OTGTIFF Normal [facility] Lipid 1996 panelon Cholesterol [Mass/Vol] 124 mg/dL Low 150-200 [facility] Comment on above: Performed By: #### Neymar BCA, 71158-0, BMP, 50623-2, 72360-7 #### ([id number]) [address] [place] [address] 07869 Cholesterol in HDL [Mass/Vol] 54 mg/dL Normal >39 [facility] Comment on above: Result Comment: HDL <40 mg/dL - High Risk HDL > or = 40mg/dL- Desirable HDL >60 mg/dL - Negative Risk Performed By: #### C BCA, 26554-7, BMP, 80059-6, 42929-3 #### ([id number]) [address] [place] [address] 22500 Cholesterol in LDL [Mass/Vol] 50 mg/dL Normal <130 [facility] Comment on above: Result Comment: LDL <100 mg/dL - Desirable LDL >160 mg/dL - High Risk Performed By: #### C BCA, 92610-7, BMP, 92839-6, 50298-9 #### ([id number]) [address] [place] [address] 57062 Cholesterol in VLDL [Mass/Vol] 20 mg/dL Normal 0-30 [facility] Comment on above: Performed By: #### C BCA, 10257-5, BMP, 69993-8, 59244-2 #### ([id number]) [address] [place] [address] 75889 CHOLESTEROL:HDL 2.3 Normal 1.0-5.0 [facility] Comment on above: Performed By: #### C BCA, 48802-9, BMP, 15218-5, 19736-5 #### ([id number]) [address] [place] [address] 31002 Triglyceride [Mass/Vol] 98 mg/dL Normal 27-150 [facility] Comment on above: Performed By: #### C BCA, 79480-8, BMP, 00746-6, 09639-8 #### ([id number]) [address] [place] [address] 95486 MR BRAIN W WO CONTon 024 MR [...] You MD on 02/23/2024 12:27 PM Normal [facility] THYROID PROFILEon 02-23-2024 Free T4 [Mass/Vol] 0.67 ng/dL Normal 0.61-1.60 [facility] Comment on above: Performed By: #### C BCA, 47559-7, BMP, 27923-0, 96023-3 #### ([id number]) [address] [place] [address] 28209 TSH 0.50 uIU/mL Normal 0.49-4.67 [facility] Comment on above: Performed By: #### C BCA, 90487-4, BMP, 11405-5, 61747-3 #### ([id number]) [address] [place] [address] 01069 Lab - Other Lab [facility] Lab - Other Lab Results [id number] 8#1.00OTGTIFF Normal [facility] Rad - Other Radiology Report on 02-16-2024 Rad - Other Radiology Report [id number] 0#1.00OTGTIFF Normal [facility] PET CT SKULL TO THIGHon 01-25 PET [...] Kumar MD on 02/15/2024 9:25 AM Normal [facility] Lab - Other Pathology Report on 02-04-2024 Lab - Other Pathology Report [id number] #1.00OTGTIFF Normal [facility] Outside Recordson 02-04-2024 Outside Records [id number] #1.00OTGTIFF [facility] CBC AND AUTO DIFFon 02-01-20 24 ABSOLUTE BASOPHIL 0.1 X10E9/L Normal 0.0-0.2 [facility] Comment on above: Performed By: #### C BCA, 22290-7, BMP, 12525-8, 64381-1 #### ([id number]) [address] [place] [address], [place] [address] ABSOLUTE NEUTROPHIL 6.5 X10E9/L Normal 1.5-6.6 [facility] Comment on above: Performed By: #### C BCA, 62988-5, BMP, 44071-8, 68052-0 #### ([id number]) [address] [place] [address] 23185 Basophils/100 WBC (Bld) 0.7 % Normal [facility] Comment on above: Performed By: #### Neymar PATEL, 52973-7, BMP, 97144-8, 53239-0 #### ([id number]) [address] [place] [address] 37657 Eosinophils (Bld) [#/Vol] 0.2 10*3/uL Normal 0.0-0.4 [facility] Comment on above: Performed By: #### Neymar PATEL, 31552-4, BMP, 96657-3, 67140-3 #### ([id number]) [address] [place] [address] 45088 Eosinophils/100 WBC (Bld) 1.9 % Normal [facility] Comment on above: Performed By: #### Neymar PATEL, 04735-3, BMP, 74631-2, 78943-7 #### ([id number]) [address] [place] [address] 64915 Erythrocyte distribution width (RBC) [Ratio] 14.1 % Normal 11.5-15.0 [facility] Comment on above: Performed By: #### Neymar BCA, 11023-0, BMP, 44683-6, 89095-4 #### ([id number]) [address] [place] [address] 46790 Hematocrit (Bld) [Volume fraction] 38.7 % Normal 35-47 [facility] Comment on above: Performed By: #### Neymar PATEL, 69625-8, BMP, 39447-8, 99048-3 #### ([id number]) [address] [place] [address] 05487 Hemoglobin (Bld) [Mass/Vol] 13.0 g/dL Normal 11.7-15.5 [facility] Comment on above: Performed By: #### C JORGE, 44977-4, BMP, 02731-5, 83506-5 #### ([id number]) [address] [place] [address] 52466 Lymphocytes (Bld) [#/Vol] 2.2 10*3/uL Normal 1.0-3.5 [facility] Comment on above: Performed By: #### Neymar PATEL, 98043-3, BMP, 92396-5, 10750-5 #### ([id number]) [address] [place] [address] 79408 Lymphocytes/100 WBC (Bld) 22.5 % Normal [facility] Comment on above: Performed By: #### Neymar PATEL, 25020-4, BMP, 23699-8, 00243-1 #### ([id number]) [address] [place] [address] 92676 MCH (RBC) [Entitic mass] 30.0 pg Normal 27-34 [facility] Comment on above: Performed By: #### Neymar PATEL, 06098-7, BMP, 60292-0, 14845-4 #### ([id number]) [address] [place] [address] 06941 MCHC (RBC) [Mass/Vol] 33.7 g/dL Normal 32-36 [facility] Comment on above: Performed By: #### Neymar PATEL, 53812-4, BMP, 20815-8, 61615-9 #### ([id number]) [address] [place] [address] 84600 MCV (RBC) [Entitic vol] 89 fL Normal 80-100 [facility] Comment on above: Performed By: #### C BCA, 20682-6, BMP, 18767-5, 90183-6 #### ([id number]) [address] [place] [address] 00224 Monocytes (Bld) [#/Vol] 0.7 10*3/uL Normal 0-0.9 [facility] Comment on above: Performed By: #### Neymar BCA, 08142-1, BMP, 31881-6, 40941-0 #### ([id number]) [address] [place] [address] 98796 Monocytes/100 WBC (Bld) 7.4 % Normal [facility] Comment on above: Performed By: #### Neymar BCA, 60385-4, BMP, 26950-5, 14453-0 #### ([id number]) [address] [place] [address] 11613 Neutrophils/100 WBC (Bld) 67.5 % Normal [facility] Comment on above: Performed By: #### Neymar PATEL, 87792-0, BMP, 54453-7, 26507-8 #### ([id number]) [address] [place] [address] 95395 Platelet mean volume (Bld) [Entitic vol] 8.4 fL Normal 7-12 [facility] Comment on above: Performed By: #### Neymar BCA, 24146-8, BMP, 87346-0, 37353-5 #### ([id number]) [address] [place] [address] 93323 Platelets (Bld) [#/Vol] 256 10*3/uL Normal 150-450 [facility] Comment on above: Performed By: #### Neymar BCA, 90896-6, BMP, 59238-9, 43005-6 #### ([id number]) [address] [place] [address] 33787 RBC COUNT 4.34 X10E12/L Normal 3.80-5.20 [facility] Comment on above: Performed By: #### C BCA, 52469-9, BMP, 00560-5, 37303-5 #### ([id number]) [address] [place] [address] 48709 WBC (Bld) [#/Vol] 9.6 10*3/uL Normal 4.0-11.0 [facility] Comment on above: Performed By: #### C BCA, 32293-8, BMP, 71758-8, 95100-6 #### ([id number]) [address] [place] [address] 22937 COMPREHENSIVE METABOLIC PANE Kemal 02-01-2024 Albumin [Mass/Vol] 3.4 g/dL Normal 3.2-5.3 [facility] Comment on above: Performed By: #### Neymar BCA, 80230-2, BMP, 47934-3, 76657-9 #### ([id number]) [address] [place] [address] 15538 ALP [Catalytic activity/Vol] 63 U/L Normal 39-130 [facility] Comment on above: Performed By: #### Neymar BCA, 78017-0, BMP, 18980-6, 94212-7 #### ([id number]) [address] [place] [address] 25334 ALT [Catalytic activity/Vol] 31 U/L Normal 0-31 [facility] Comment on above: Performed By: #### C BCA, 30397-1, BMP, 37879-1, 01296-6 #### ([id number]) [address] [place] [address] 31838 Anion gap [Moles/Vol] 6 mmol/L Normal 5-15 [facility] Comment on above: Performed By: #### Neymar BCA, 33732-1, BMP, 81759-6, 27902-6 #### ([id number]) [address] [place] [address] 96152 AST [Catalytic activity/Vol] 29 U/L Normal 0-41 [facility] Comment on above: Performed By: #### C BCA, 67239-5, BMP, 98691-1, 38306-6 #### ([id number]) [address] [place] [address] 07211 Bilirubin [Mass/Vol] 0.4 mg/dL Normal 0.3-1.2 [facility] Comment on above: Performed By: #### Neymar BCA, 74649-3, BMP, 38104-8, 15408-4 #### ([id number]) [address] [place] [address] 21767 Calcium [Mass/Vol] 6.8 mg/dL Critically low 8.5-10.5 [facility] Comment on above: Performed By: #### C BCA, 76673-2, BMP, 28561-7, 21975-8 #### ([id number]) [address] [place] [address] 11717 Chloride [Moles/Vol] 103 mmol/L Normal 98-109 [facility] Comment on above: Performed By: #### Neymar BCA, 15827-8, BMP, 06289-7, 53701-1 #### ([id number]) [address] [place] [address] 90091 CO2 [Moles/Vol] 27 mmol/L Normal 22-32 [facility] Comment on above: Performed By: #### Neymar BCA, 97123-1, BMP, 41646-5, 49534-1 #### ([id number]) [address] [place] [address] 39412 Creatinine [Mass/Vol] 0.88 mg/dL Normal 0.40-1.00 [facility] Comment on above: Result Comment: METH OD TRACEABLE TO IDMS STANDARD Performed By: #### C BCA, 21870-8, BMP, 42283-5, 07689-9 #### ([id number]) [address] [place] [address] 11318 GFR/1.73 sq M.predicted among non-blacks MDRD (S/P/Bld) [Vol rate/Area] 70 mL/min/{1.73_m2} Normal >59 [facility] Comment on above: Result Comment: Reported eGFR is based on the CKD-EPI 2020 equation that does not use a race coefficient. Performed By: #### C JORGE, 56684-2, BMP, 58385-3, 63594-9 #### ([id number]) [address] [place] [address] 04624 Glucose [Mass/Vol] 159 mg/dL High 65-99 [facility] Comment on above: Performed By: #### C JORGE, 41985-1, BMP, 03127-6, 19538-8 #### ([id number]) [address] [place] [address] 76890 Potassium [Moles/Vol] 3.4 mmol/L Low 3.5-5.0 [facility] Comment on above: Performed By: #### C JORGE, 20646-7, BMP, 80630-3, 85020-8 #### ([id number]) [address] [place] [address] 68902 Protein [Mass/Vol] 7.0 g/dL Normal 6.0-8.0 [facility] Comment on above: Performed By: #### C BCA, 06170-9, BMP, 14635-9, 24343-0 #### ([id number]) [address] [place] [address] 15729 Sodium [Moles/Vol] 136 mmol/L Normal 134-146 [facility] Comment on above: Performed By: #### C BCA, 95826-1, BMP, 86929-6, 83052-3 #### ([id number]) [address] [place] [address] 04571 Urea nitrogen [Mass/Vol] 15 mg/dL Normal 5-27 [facility] Comment on above: Performed By: #### C BCA, 34244-2, BMP, 17051-0, 58227-3 #### ([id number]) [address] [place] [address] 45396 MAGNESIUMon 02-01-2024 Magnesium [Mass/Vol] 1.9 mg/dL Normal 1.8-2.6 [facility] Comment on above: Performed By: #### C JORGE, 28074-7, BMP, 70563-0, 38466-2 #### ([id number]) [address] [place] [address] 36568 TROPONIN Ion 02-01-2024 Troponin I.cardiac [Mass/Vol] 0.04 ng/mL Normal 0.00-0.04 [facility] Comment on above: Performed By: #### C BCA, 58217-9, BMP, 64476-4, 97457-5 #### ([id number]) [address] [place] [address] 84441 XR CHEST 2 VWSon 02-01-2024 XR CHEST [...] Barnard MD on 02/01/2024 12:51 PM Normal [facility] Outside Recordson 01-27-2024 Outside Records [id number] #[id number] Normal [facility] AFB CULTURE(CONCENTRATED)on 01-26-2024 Mycobacterium sp identified Org specific cx Nom (Unsp spec) AFB SMEAR NO ACID FAST BACILLI (CONCENTRATED SMEAR) CULTURE RESULTS NO ACID FAST BACILLI ISOLATED IN 8 WEEKS Normal [facility] Comment on above: Performed By: #### 5 43-9 #### [facility] ([id number]) [address] [place] [address] AND DIFFon 2023 BODY FLUID COMMENT Interpreta tion-------- Normal [facility] Comment on above: Result Comment: Refe rence values for this fluid type are undefined, as fluid accumulation is considered abnormal. Performed By: #### B FCT #### [facility] ([id number]) [address] [place] [address] FLUID CLARITY HAZY Normal [facility] Comment on above: Performed By: #### B FCT #### [facility] ([id number]) [address], [address] [place] [address] FLUID COLOR COLORLESS Normal [facility] Comment on above: Performed By: #### B FCT #### [facility] ([id number]) [address], [address] [place] [address] FLUID NEUTROPHILS 98 % Normal [facility] Comment on above: Performed By: #### B FCT #### [facility] ([id number]) [address] [place] [address] 42 /uL Normal [facility] Comment on above: Performed By: #### B FCT #### [facility] ([id number]) [address] [place] [address], [address] [place] [address] FLUID SPECIMEN TYPE BRONCHOALVEOLAR LAVAGE Normal [facility] Comment on above: Performed By: #### B FCT #### [facility] ([id number]) [address] [place] [address] [address] [place] [address] MACROPHAGES 2 % Normal [facility] Comment on above: Performed By: #### B FCT #### [facility] ([id number]) [address] [place] [address], [facility] [address] [place] [address] 2180 /uL Normal [facility] Comment on above: Performed By: #### B FCT #### [facility] ([id number]) [address] [place] [address], [address] [address] Cytologyon 01-26-2024 Cytology Normal [facility] Comment on above: Result Comment: [facility] [address] [place] [address] Cytology Consultation Patient Name:JAZZMINE PATEL:1950 (Age: 73)Gender:FTaken:01/26/2024eported:02/02/2024 15:31Physician(s):EILEEN FONSECA DO ([phone])Copy To: Rec. #:[id number]: #[id number] Final Cytologic Diagnosis Bronchoalveolar lavage, lingula: Atypical cells are present. cjb/02/02/2024 Interpretation performed at [facility], [address] [place] [address], License number: [id number].Electronically Signed Out By Breonna Molina MD Clinical History Langular obstruction and chronic cough. Gross Description Received was 20mL of cloudy colorless fluid unfixed labeled as Homler, BAL, lingula . CytoLyt added in lab. Specimen placed in formalin at 17:00 and had a total fixation time of 8 hours. Source of Specimen Bronchoalveolar lavage, lingula Cell block for Non-back feeder plywood layup line (M), Level 2 H&E, Non WHEEL TRUER ThinPrep Fee Code(s): 1; 80670, 98363 FUNGAL CULTUREon 01-26-2024 Fungus identified Cx Nom (Unsp spec) FUNGAL SMEAR NO FUNGAL ELEMENTS SEEN ON CONCENTRATED SMEAR CULTURE RESULTS NO FUNGUS ISOLATED AFTER 4 WEEKS Normal [facility] Comment on above: Performed By: #### 5 80-1 #### [facility] ([id number]) [address] [facility] [place] [address] Glucose Glucometer (BldC) [M ass/Vol]on 01-26-2024 Glucose [Mass/Vol] 71 mg/dL Normal 65-99 [facility] Glucose [Mass/Vol] 73 mg/dL Normal 65-99 [facility] LOWER RESPIRATORY CULTUREon 01-26-2024 Bacteria identified Respiratory [...] endocarditis). PENICILLIN(IV,nonmen ing.) S 1 F Susceptible [facility] Comment on above: Performed By: #### 6 24-7 #### [facility] ([id number]) [address] [place] [address], [address] [place] [address] Surgical Pathologyon 024 Surgical Pathology Normal [facility] Comment on above: Result Comment: [facility] [address] [place] [address] Surgical Pathology Consultation Patient Name:JAZZMINE PATEL:1950 (Age: 73)Gender:FTaken:01/26/2024eported:02/02/2024hysician(s):EILEEN FONSECA DO ([phone])Copy To: Rec. #:[id number]: #[id number] Final Pathologic Diagnosis Endobronchial lesion, lingula: AT [...] Out cjb/02/02/2024niesha Molina MD Interpretation performed at [facility], [address] [place] [address], License number: [id number]. Clinical History Lingular obstruction and chronic cough. Gross Description Received in formalin labeled AMANDA endobronchial lesion, lingula are multiple thurston bits of soft tissue, aggregating to 0.9 x 0.1 x 0.1 cm. Filtered and submitted in a single cassette. (1, ns, [id number], m5) MG mjg/01/26/2024SSI Specimen(s) Received Endobronchial lesion, lingula Fee Codes(s): 1; 56264, 35307, 04181(3) BASIC METABOLIC PANLon 01-24 Anion gap [Moles/Vol] 12 mmol/L Normal 5-15 [facility] Comment on above: Performed By: #### C BCA, 66261-7, BMP, 63566-0, 87481-2 #### ([id number]) [address] [place] [address] 06052 Calcium [Mass/Vol] 7.4 mg/dL Low 8.5-10.5 [facility] Comment on above: Performed By: #### C BCA, 73070-2, BMP, 14950-3, 31819-6 #### ([id number]) [address] [place] [address] 75839 Chloride [Moles/Vol] 101 mmol/L Normal 98-109 [facility] Comment on above: Performed By: #### C BCA, 58515-6, BMP, 17500-1, 43643-6 #### ([id number]) [address] [place] [address] 36729 CO2 [Moles/Vol] 29 mmol/L Normal 22-32 [facility] Comment on above: Performed By: #### C BCA, 76288-7, BMP, 93148-2, 24834-9 #### ([id number]) [address] [place] [address] 87886 Creatinine [Mass/Vol] 0.82 mg/dL Normal 0.40-1.00 [facility] Comment on above: Result Comment: METH OD TRACEABLE TO IDMS STANDARD Performed By: #### C BCA, 86916-3, BMP, 27556-5, 32597-4 #### ([id number]) [address] [place] [address] 88757 GFR/1.73 sq M.predicted among non-blacks MDRD (S/P/Bld) [Vol rate/Area] 76 mL/min/{1.73_m2} Normal >59 [facility] Comment on above: Result Comment: Reported eGFR is based on the CKD-EPI 2021 equation that does not use a race coefficient. Performed By: #### C BCA, 04470-5, BMP, 81335-8, 92420-1 #### ([id number]) [address] [place] [address] 57268 Glucose [Mass/Vol] 112 mg/dL High 65-99 [facility] Comment on above: Performed By: #### C BCA, 57569-0, BMP, 16056-1, 51299-4 #### ([id number]) [address] [place] [address] 40490 Potassium [Moles/Vol] 3.6 mmol/L Normal 3.5-5.0 [facility] Comment on above: Performed By: #### C BCA, 96649-9, BMP, 39803-2, 55131-6 #### ([id number]) [address] [place] [address] 61099 Sodium [Moles/Vol] 142 mmol/L Normal 134-146 [facility] Comment on above: Performed By: #### C BCA, 23017-6, BMP, 51467-8, 17360-8 #### ([id number]) [address] [place] [address] 46316 Urea nitrogen [Mass/Vol] 16 mg/dL Normal 5-27 [facility] Comment on above: Performed By: #### C BCA, 39997-2, BMP, 53568-8, 45472-9 #### ([id number]) [address] [place] [address] 31798 CBC AND AUTO DIFFon 01-25-20 24 ABSOLUTE BASOPHIL 0.1 X10E9/L Normal 0.0-0.2 [facility] Comment on above: Performed By: #### C BCA, 38562-0, BMP, 06823-7, 57601-7 #### ([id number]) [address] [place] [address], [place] [address] ABSOLUTE NEUTROPHIL 4.3 X10E9/L Normal 1.5-6.6 [facility] Comment on above: Performed By: #### Neymar PATEL, 51907-9, BMP, 52692-6, 52993-1 #### ([id number]) [address] [place] [address] 18515 Basophils/100 WBC (Bld) 1.4 % Normal [facility] Comment on above: Performed By: #### C JORGE, 88256-6, BMP, 01095-8, 58860-1 #### ([id number]) [address] [place] [address] 35480 Eosinophils (Bld) [#/Vol] 0.1 10*3/uL Normal 0.0-0.4 [facility] Comment on above: Performed By: #### Neymar PATEL, 13448-6, BMP, 05946-1, 78758-4 #### ([id number]) [address] [place] [address] 87267 Eosinophils/100 WBC (Bld) 0.8 % Normal [facility] Comment on above: Performed By: #### Neymar PATEL, 66637-0, BMP, 87395-8, 94127-7 #### ([id number]) [address] [place] [address] 76816 Erythrocyte distribution width (RBC) [Ratio] 14.0 % Normal 11.5-15.0 [facility] Comment on above: Performed By: #### Neymar PATEL, 97807-8, BMP, 30019-3, 08247-9 #### ([id number]) [address] [place] [address] 78278 Hematocrit (Bld) [Volume fraction] 41.3 % Normal 35-47 [facility] Comment on above: Performed By: #### Neymar PATEL, 51521-7, BMP, 97623-1, 01293-1 #### ([id number]) [address] [place] [address] 73616 Hemoglobin (Bld) [Mass/Vol] 14.2 g/dL Normal 11.7-15.5 [facility] Comment on above: Performed By: #### Neymar PATEL, 56802-6, BMP, 50646-8, 02914-7 #### ([id number]) [address] [place] [address] 07913 Lymphocytes (Bld) [#/Vol] 2.0 10*3/uL Normal 1.0-3.5 [facility] Comment on above: Performed By: #### Neymar PATEL, 80879-4, BMP, 01387-5, 98647-8 #### ([id number]) [address] [place] [address] 67039 Lymphocytes/100 WBC (Bld) 29.5 % Normal [facility] Comment on above: Performed By: #### Neymar PATEL, 66858-9, BMP, 85381-1, 07714-2 #### ([id number]) [address] [place] [address] 99885 MCH (RBC) [Entitic mass] 30.8 pg Normal 27-34 [facility] Comment on above: Performed By: #### Neymar PATEL, 34442-5, BMP, 84019-0, 42421-8 #### ([id number]) [address] [place] [address] 07621 MCHC (RBC) [Mass/Vol] 34.5 g/dL Normal 32-36 [facility] Comment on above: Performed By: #### Neymar PATEL, 61516-1, BMP, 82743-2, 30222-7 #### ([id number]) [address] [place] [address] 18059 MCV (RBC) [Entitic vol] 89 fL Normal 80-100 [facility] Comment on above: Performed By: #### Neymar BCA, 26000-7, BMP, 03582-1, 50453-6 #### ([id number]) [address] [place] [address] 74235 Monocytes (Bld) [#/Vol] 0.4 10*3/uL Normal 0-0.9 [facility] Comment on above: Performed By: #### Neymar BCA, 47541-3, BMP, 54393-0, 10376-6 #### ([id number]) [address] [place] [address] 74289 Monocytes/100 WBC (Bld) 5.6 % Normal [facility] Comment on above: Performed By: #### Neymar PATEL, 73584-2, BMP, 46596-3, 74699-8 #### ([id number]) [address] [place] [address] 36446 Neutrophils/100 WBC (Bld) 62.7 % Normal [facility] Comment on above: Performed By: #### Neymar PATEL, 19583-1, BMP, 06233-4, 93463-6 #### ([id number]) [address] [place] [address] 25095 Platelet mean volume (Bld) [Entitic vol] 8.8 fL Normal 7-12 [facility] Comment on above: Performed By: #### Neymar BCA, 16130-8, BMP, 90707-6, 59568-0 #### ([id number]) [address] [place] [address] 98763 Platelets (Bld) [#/Vol] 230 10*3/uL Normal 150-450 [facility] Comment on above: Performed By: #### Neymar PATEL, 21572-3, BMP, 72773-8, 13364-1 #### ([id number]) [address] [place] [address] 56628 RBC COUNT 4.62 X10E12/L Normal 3.80-5.20 [facility] Comment on above: Performed By: #### C JORGE, 87270-9, BMP, 12473-1, 46630-8 #### ([id number]) [address] [place] [address] 83300 WBC (Bld) [#/Vol] 6.9 10*3/uL Normal 4.0-11.0 [facility] Comment on above: Performed By: #### C JORGE, 60172-4, BMP, 27530-6, 85997-0 #### ([id number]) [address] [place] [address] 64643 HGB A1C (GLYCO-HGB)on 2023 Glucose [Mass/Vol] 146 mg/dL Normal [facility] Comment on above: Performed By: #### C JORGE, 27171-1, BMP, 00743-0, 84898-0 #### ([id number]) [address] [place] [address] 27645 HbA1c (Bld) [Mass fraction] 6.7 % High 4.4-5.6 [facility] Comment on above: Result Comment: NOTE ADA Guidelines Result HgbA1c Normal : less than 5.7 % Prediabetes : 5.7 % to 6.4 % Diabetes : > 6.4 % Use with caution in patients with abnormal hemoglobin variants as the half-life of red blood cells and in vivo glycation rates are affected. Performed By: #### Neymar PATEL, 16214-9, BMP, 01066-3, 32827-0 #### ([id number]) [address] [place] [address] 71643 Lipid 1996 panelon 4 Cholesterol [Mass/Vol] 97 mg/dL Low 150-200 [facility] Comment on above: Performed By: ###Lily Blackmon BCA, 66121-3, BMP, 37830-0, 61337-1 #### ([id number]) [address] [place] [address] 03102 Cholesterol in HDL [Mass/Vol] 44 mg/dL Normal >39 [facility] Comment on above: Result Comment: HDL <40 mg/dL - High Risk HDL > or = 40mg/dL- Desirable HDL >60 mg/dL - Negative Risk Performed By: ###Lily Blackmon BCA, 49207-0, BMP, 52414-8, 19533-2 #### ([id number]) [address] [place] [address] 54552 Cholesterol in LDL [Mass/Vol] 41 mg/dL Normal <130 [facility] Comment on above: Result Comment: LDL <100 mg/dL - Desirable LDL >160 mg/dL - High Risk Performed By: ###Lily Blackmon BCA, 30176-6, BMP, 42767-6, 59876-5 #### ([id number]) [address] [place] [address] 96201 Cholesterol in VLDL [Mass/Vol] 12 mg/dL Normal 0-30 [facility] Comment on above: Performed By: #Angelic Blackmon BCA, 55102-8, BMP, 81682-4, 27369-4 #### ([id number]) [address] [place] [address] 41945 CHOLESTEROL:HDL 2.2 Normal 1.0-5.0 [facility] Comment on above: Performed By: #### C BCA, 63758-7, BMP, 06459-0, 66507-9 #### ([id number]) [address] [place] [address] 99316 Triglyceride [Mass/Vol] 62 mg/dL Normal 27-150 [facility] Comment on above: Performed By: #### C BCA, 27349-8, BMP, 14014-9, 13886-7 #### ([id number]) [address] [place] [address] 01619 PROTIME AND INRon 01-25-2024 INR Coag (PPP) [Relative time] 1.1 {INR} Normal 0.8-1.1 [facility] Comment on above: Performed By: #### P INR, 44153-4 #### ([id number]) [address] [place] [address] 03462 PT Coag (PPP) [Time] 13.1 s Normal 9.8-13.2 [facility] Comment on above: Result Comment: NEW REFERENCE RANGE Performed By: #### P INR, 58695-2 #### ([id number]) [address] [place] [address] 82626 THYROID PROFILEon 01-25-2024 Free T4 [Mass/Vol] 1.41 ng/dL Normal 0.61-1.60 [facility] Comment on above: Performed By: #### C BCA, 43729-2, BMP, 27376-3, 74136-1 #### ([id number]) [address] [place] [address] 68895 TSH 0.22 uIU/mL Low 0.49-4.67 [facility] Comment on above: Performed By: #### C BCA, 48328-0, BMP, 23814-1, 19689-3 #### ([id number]) [address] [place] [address] 77064 aPTT Coag (PPP) [Time]on aPTT Coag (Bld) [Time] 36 s Normal 26-37 [facility] Comment on above: Result Comment: NEW REFERENCE RANGE Performed By: #### P INR, 54942-8 #### ([id number]) [address] [place] [address] CT CHEST WO CONTon CT CHEST WO [...] Markham MD on 12/03/2023 11:02 AM Normal [facility] BASIC METABOLIC PANLon 10-19 Anion gap [Moles/Vol] 11 mmol/L Normal 5-15 [facility] Comment on above: Performed By: #### C BCA, 78394-5, BMP, 01962-7, 25090-9 #### ([id number]) [address] [place] [address] Calcium [Mass/Vol] 7.2 mg/dL Low 8.5-10.5 [facility] Comment on above: Performed By: #### C BCA, 69471-3, BMP, 44358-5, 41083-7 #### ([id number]) [address] [place] [address] 07836 Chloride [Moles/Vol] 99 mmol/L Normal 98-109 [facility] Comment on above: Performed By: #### C BCA, 15124-3, BMP, 07990-7, 07820-0 #### ([id number]) [address] [place] [address] 14999 CO2 [Moles/Vol] 30 mmol/L Normal 22-32 [facility] Comment on above: Performed By: #### C BCA, 58070-1, BMP, 67649-5, 02674-3 #### ([id number]) [address] [place] [address] 00706 Creatinine [Mass/Vol] 1.00 mg/dL Normal 0.40-1.00 [facility] Comment on above: Result Comment: METH OD TRACEABLE TO IDMS STANDARD Performed By: #### C BCA, 06468-0, BMP, 94996-8, 35396-3 #### ([id number]) [address] [place] [address] 55569 GFR/1.73 sq M.predicted among non-blacks MDRD (S/P/Bld) [Vol rate/Area] 61 mL/min/{1.73_m2} Normal >59 [facility] Comment on above: Result Comment: Reported eGFR is based on the CKD-EPI 2020 equation that does not use a race coefficient. Performed By: #### C BCA, 77263-2, BMP, 18502-7, 64813-2 #### ([id number]) [address] [place] [address] 57463 Glucose [Mass/Vol] 150 mg/dL High 65-99 [facility] Comment on above: Performed By: #### C BCA, 61229-8, BMP, 97275-4, 09572-5 #### ([id number]) [address] [place] [address] 34751 Potassium [Moles/Vol] 4.2 mmol/L Normal 3.5-5.0 [facility] Comment on above: Result Comment: SPEC IMEN HEMOLYZED, RESULTS INCREASED Performed By: #### C BCA, 27077-2, BMP, 30302-3, 53948-9 #### ([id number]) [address] [place] [address] 04485 Sodium [Moles/Vol] 140 mmol/L Normal 134-146 [facility] Comment on above: Performed By: #### Neymar BCA, 59557-2, BMP, 04373-2, 39300-7 #### ([id number]) [address] [place] [address] 59213 Urea nitrogen [Mass/Vol] 14 mg/dL Normal 5-27 [facility] Comment on above: Performed By: #### C BCA, 93231-4, BMP, 87569-2, 16497-1 #### ([id number]) [address] [place] [address] 36773 CBC AND AUTO DIFFon 12-20 23 ABSOLUTE BASOPHIL 0.1 X10E9/L Normal 0.0-0.2 [facility] Comment on above: Performed By: #### Neymar BCA, 50861-4, BMP, 55587-8, 53695-6 #### ([id number]) [address] [place] [address] 62213 ABSOLUTE NEUTROPHIL 8.2 X10E9/L High 1.5-6.6 [facility] Comment on above: Performed By: #### Neymar BCA, 67461-4, BMP, 62886-6, 90324-4 #### ([id number]) [address] [place] [address] 99688 Basophils/100 WBC (Bld) 0.9 % Normal [facility] Comment on above: Performed By: #### C JORGE, 62420-8, BMP, 93729-3, 78739-1 #### ([id number]) [address] [place] [address] 90792 Eosinophils (Bld) [#/Vol] 0.1 10*3/uL Normal 0.0-0.4 [facility] Comment on above: Performed By: #### Neymar PATEL, 32682-1, BMP, 06157-5, 11107-0 #### ([id number]) [address] [place] [address] 27148 Eosinophils/100 WBC (Bld) 1.0 % Normal [facility] Comment on above: Performed By: #### Neymar PATEL, 17103-9, BMP, 57301-8, 54639-8 #### ([id number]) [address] [place] [address] 02023 Erythrocyte distribution width (RBC) [Ratio] 13.6 % Normal 11.5-15.0 [facility] Comment on above: Performed By: #### Neymar PATEL, 57575-4, BMP, 96777-3, 39512-9 #### ([id number]) [address] [place] [address] 15337 Hematocrit (Bld) [Volume fraction] 42.1 % Normal 35-47 [facility] Comment on above: Performed By: #### Neymar PATEL, 47320-9, BMP, 63198-5, 13098-1 #### ([id number]) [address] [place] [address] 67709 Hemoglobin (Bld) [Mass/Vol] 14.4 g/dL Normal 11.7-15.5 [facility] Comment on above: Performed By: #### C BCA, 42133-7, BMP, 75033-9, 40425-5 #### ([id number]) [address] [place] [address] 50658 Lymphocytes (Bld) [#/Vol] 1.7 10*3/uL Normal 1.0-3.5 [facility] Comment on above: Performed By: #### Neymar BCA, 74766-1, BMP, 56165-2, 34666-3 #### ([id number]) [address] [place] [address] 66022 Lymphocytes/100 WBC (Bld) 16.0 % Normal [facility] Comment on above: Performed By: #### Neymar BCA, 80963-8, BMP, 23231-0, 18812-3 #### ([id number]) [address] [place] [address] 37299 MCH (RBC) [Entitic mass] 31.1 pg Normal 27-34 [facility] Comment on above: Performed By: #### Neymar BCA, 02813-8, BMP, 85462-2, 46851-5 #### ([id number]) [address] [place] [address] 61096 MCHC (RBC) [Mass/Vol] 34.1 g/dL Normal 32-36 [facility] Comment on above: Performed By: #### Neymar BCA, 45199-2, BMP, 53568-1, 08101-8 #### ([id number]) [address] [place] [address] 44630 MCV (RBC) [Entitic vol] 91 fL Normal 80-100 [facility] Comment on above: Performed By: #### Neymar BCA, 57611-8, BMP, 41733-2, 64051-1 #### ([id number]) [address] [place] [address] 95763 Monocytes (Bld) [#/Vol] 0.7 10*3/uL Normal 0-0.9 [facility] Comment on above: Performed By: #### Neymar PATEL, 90928-2, BMP, 68323-6, 59740-9 #### ([id number]) [address] [place] [address] 74431 Monocytes/100 WBC (Bld) 6.3 % Normal [facility] Comment on above: Performed By: #### Neymar PATEL, 19574-4, BMP, 72338-9, 95479-3 #### ([id number]) [address] [place] [address] 80346 Neutrophils/100 WBC (Bld) 75.8 % Normal [facility] Comment on above: Performed By: #### Neymar PATEL, 80335-2, BMP, 38285-5, 47142-3 #### ([id number]) [address] [place] [address] 16655 Platelet mean volume (Bld) [Entitic vol] 8.3 fL Normal 7-12 [facility] Comment on above: Performed By: #### Neymar PATEL, 81682-3, BMP, 40748-3, 59475-7 #### ([id number]) [address] [place] [address] 66762 Platelets (Bld) [#/Vol] 308 10*3/uL Normal 150-450 [facility] Comment on above: Performed By: #### Neymar PATEL, 15291-5, BMP, 66908-4, 59105-0 #### ([id number]) [address] [place] [address] 45402 RBC COUNT 4.63 X10E12/L Normal 3.80-5.20 [facility] Comment on above: Performed By: #### Neymar PATEL, 82984-9, BMP, 77517-7, 99131-6 #### ([id number]) [address] [place] [address] 21113 WBC (Bld) [#/Vol] 10.8 10*3/uL Normal 4.0-11.0 [facility] Comment on above: Performed By: #### C BCA, 58339-0, BMP, 74253-1, 81417-5 #### ([id number]) [address] [place] [address] 78172 Fibrin D-dimer DDU (PPP) [Ma ss/Vol]on 10-19-2023 D DIMER 206 ng/mL DDU Normal <255 [facility] Comment on above: Result Comment: Results <255 ng/mL DDU: The presence of a VTE can safely be excluded with a negative D-Dimer result and Wells score. A negative result doesn't exclude the possibility of DIC. The test be repeated along with other diagnostic tests if the patient's symptoms persist or worsen. [email or web address] Performed By: #### C BCA, 15332-4, BMP, 81161-3, 39887-4 #### ([id number]) [address] [place] [address] 92159 Natriuretic peptide B [Mass/ Vol]on 10-19-2023 Natriuretic peptide B (Bld) [Mass/Vol] 57 pg/mL Normal <100.0 [facility] Comment on above: Performed By: #### C BCA, 49203-8, BMP, 82007-5, 05519-3 #### ([id number]) [address] [place] [address] 51145 SARS/FLU A+B/RSV by NAAT/Mol ecularon 10-19-2023 SARS/FLU [...] operators who are performing tests using either Versus DX or CAD Best systems and is limited to laboratories that [...] repeat. Fact Sheet for Healthcare Providers: https://www.fda.gov/ media/654153/downloa d Fact Sheet for Patients: https://www.fda.gov/ media/363844/downloa d [facility] Comment on above: Performed By: #### C OVFLR #### ([id number]) [address] [place] [address], [place] [address] TROPONIN Ion 10-19-2023 Troponin I.cardiac [Mass/Vol] ng/mL Normal 0.00-0.04 [facility] Comment on above: Performed By: #### C BCA, 64468-4, [facility], 96278-1, 51641-9 #### ([id number]) [address] [facility] [place] [address] XR CHEST 1 VWon 10-19-2023 XR CHEST [...] Lance Wagner on 10/19/2023 2:00 PM Normal [facility] Patient Provided Health Data on 08-13-2023 Patient Provided Health Data [id number] #1.00OTGTIFF Normal [facility] Patient Handouton 07-24-2023 Patient Handout [id number] #1.00OTGTIFF [facility] CREATININEon 08-15-2022 Creatinine [Mass/Vol] 1.10 mg/dL Critically high 0.55-1.02 [facility] Comment on above: Performed By: #### C TRUPTI #### [facility] [address] [address] [address] Becky Gauthier EGFR-AF PORTUGUESE =60 Normal >=60 [facility] Comment on above: Performed By: #### C TRUPTI #### [facility] [address] [place], [place] [address] Dr. Becky Gauthier EGFR-NON AF PORTUGUESE 49 mL/min/1.73m2 Critically low >=60 [facility] Comment on above: Performed By: #### C TRUPTI #### [facility] [address] [place], [place] [address] Dr. Becky Gauthier Basic Metabolic PanelOrdered By: Willie Fortune on 02-13-2021 Anion gap [Moles/Vol] 13 mmol/L 9 - 17 mmol/L [employer] Phone: Calcium [Mass/Vol] 7.7 mg/dL Low 8.6 - 10. 4 mg/dL [employer] Phone: Chloride [Moles/Vol] 105 mmol/L 98 - 10 7 mmol/L [employer] Phone: CO2 [Moles/Vol] 24 mmol/L 20 - 31 mmol/L [employer] Phone: Creatinine [Mass/Vol] 1.38 mg/dL High 0.50 - 0.90 mg/dL [employer] Phone: GFR 46 mL/min Low >60 [employer] Phone: GFR Non- 38 mL/min Low >60 [employer] Phone: GFR/1.73 sq M.predicted MDRD (S/P/Bld) [Vol rate/Area] [employer] Phone: Comment on above: Average GFR for 60-6 9 years old: 85 mL/min/1.73sq m Chronic Kidney Disease: <60 mL/min/1.73sq m Kidney failure: <15 mL/min/1.73sq m eGFR calculated using average adult body mass. Additional eGFR calculator available at: http://www.HunterOn.Eat Your Kimchi/multiple_crcl_2012.htm GFR/1.73 sq M.predicted MDRD (S/P/Bld) [Vol rate/Area] NOT REPORTED [employer] Phone: Glucose [Mass/Vol] 94 mg/dL 70 - 99 mg/dL [facility] Phone: Interpretation and review of laboratory results Abnormal [facility] Phone: Potassium [Moles/Vol] 3.6 mmol/L Low 3.7 - 5.3 mmol/L [facility] Phone: Sodium [Moles/Vol] 142 mmol/L 135 - 144 mmol/L [facility] Phone: Urea nitrogen (BldV) [Mass/Vol] 16 mg/dL 8 - 23 mg/dL [facility] Phone: Urea nitrogen/Creatinine (Bld) [Mass ratio] 12 [facility] Phone: Basic Metabolic Profon 02-13 (cont.) Normal [facility] [place] [facility] Comment on above: Result Comment: Aver age GFR for 60-69 years old: 85 mL/min/1.73sq m Chronic Kidney Disease: <60 mL/min/1.73sq m Kidney failure: <15 mL/min/1.73sq m eGFR calculated using average adult body mass. Additional eGFR calculator available at: http://www.Noosh/multiple_crcl_2012.htm Performed By: #### B MP #### [facility] [address] [facility] [place], [place] [id number] Television Presenter: Oscar Mane MD Anion gap [Moles/Vol] 13 mmol/L Normal 9-17 [facility] Comment on above: Performed By: #### B MP #### [facility] [address] [facility] [place] [address] Television Presenter: Oscar Mane MD BUN/CRE Ratio 12 Normal 9-20 [facility] [place] [facility] Comment on above: Performed By: #### B MP #### [facility] [address] [place] [address] Television Presenter: Oscar Mane MD Calcium [Mass/Vol] 7.7 mg/dL Low 8.6-10.4 [facility] [place] [facility] Comment on above: Performed By: #### B MP #### [facility] [address] [place] [address] Television Presenter: Oscar Mane MD Chloride [Moles/Vol] 105 mmol/L Normal 98-107 [facility] Comment on above: Performed By: #### B MP #### [facility] [address] [place] [address] Television Presenter: Oscar Mane MD CO2 [Moles/Vol] 24 mmol/L Normal 20-31 [facility] [place] [facility] Comment on above: Performed By: #### B MP #### [facility] [address] [place] [address] Television Presenter: Oscar Mane MD Creatinine [Mass/Vol] 1.38 mg/dL High 0.50-0.90 [facility] Comment on above: Performed By: #### B MP #### [facility] [address] [place] [address] Television Presenter: Oscar Mane MD GFR, Amer 46 mL/min Low >60 [facility] Comment on above: Performed By: #### B MP #### [facility] [address] [place] [address] Television Presenter: Oscar Mane MD GFR,non Amer 38 mL/min Low >60 [facility] Comment on above: Performed By: #### B MP #### [facility] [address] [place] [address] Television Presenter: Oscar Mane MD Glucose [Mass/Vol] 94 mg/dL Normal 70-99 [facility] [place] [facility] Comment on above: Performed By: #### B MP #### [facility] [address] [facility] [place] [address] Television Presenter: Oscar Mane MD Potassium [Moles/Vol] 3.6 mmol/L Low 3.7-5.3 [facility] Comment on above: Performed By: #### B MP #### [facility] [address] [place] [address] Television Presenter: Oscar Mane MD Sodium [Moles/Vol] 142 mmol/L Normal 135-144 [facility] [place] [facility] Comment on above: Performed By: #### B MP #### [facility] [address] [place] [address] Television Presenter: Oscar Mane MD Urea nitrogen [Mass/Vol] 16 mg/dL Normal 8-23 [facility] [place] [facility] Comment on above: Performed By: #### B MP #### [facility] [facility] [place] [address] Television Presenter: Oscar Mane MD Staging: NOT REPORTED Normal [facility] [place] [facility] Comment on above: Performed By: #### B MP #### [facility] [place] [address] Television Presenter: Oscar Mane MD EKG 12 leadOrdered By: Willie Fortune on 02-13-2021 Atrial Rate 69 BPM [employer] Work Phone: P [place] 86 degrees [employer] Phone: P-R Interval 134 ms [employer] Phone: Q-T Interval 444 ms [employer] Phone: QRS Duration 84 ms [employer] Phone: QTc Calculation (Bazett) 475 ms [employer] Phone: R [place] 78 degrees [employer] Phone: T [place] 135 degrees [employer] Phone: Ventricular Rate 69 BPM [employer] Phone: Sinus rhythm with marked sinus arrhythmia ST & T wave abnormality, consider anterolateral ischemia Prolonged QT Abnormal ECG No previous ECGs available [employer] Phone: [place], [employer] Incoming Ekg Results From [employer] - 02/13/2021 8:17 AM EDT Sinus rhythm with marked sinus arrhythmia ST & T wave abnormality, consider anterolateral ischemia Prolonged QT Abnormal ECG No previous ECGs available [employer] Phone: BUN + Creatinineon 1 (cont.) Normal [facility] [place] [facility] Comment on above: Result Comment: Aver age GFR for 60-69 years old: 85 mL/min/1.73sq m Chronic Kidney Disease: <60 mL/min/1.73sq m Kidney failure: <15 mL/min/1.73sq m eGFR calculated using average adult body mass. Additional eGFR calculator available at: http://www.Noosh/multiple_crcl_2012.htm Performed By: #### B UNCRT #### [facility] [address] [place] [address] Television Presenter: Oscar Mane MD Creatinine [Mass/Vol] 0.92 mg/dL High 0.50-0.90 [facility] Comment on above: Performed By: #### B UNCRT #### [facility] [address] [place] [address] Television Presenter: Oscar Mane MD GFR, Amer >60 Normal >60 [facility] Comment on above: Performed By: #### B UNCRT #### [facility] [address] [place] [address] Television Presenter: Oscar Mane MD GFR,non Amer >60 Normal >60 [facility] Comment on above: Performed By: #### B UNCRT #### [facility] [address] [facility] [place] [address] Television Presenter: Oscar Mane MD Urea nitrogen [Mass/Vol] 14 mg/dL Normal 8-23 [facility] [place] [facility] Comment on above: Performed By: #### B UNCRT #### [facility] [address] [facility] [place] [address] Television Presenter: Oscar Mane MD Staging: NOT REPORTED Normal [facility] [place] [facility] Comment on above: Performed By: #### B UNCRT #### [facility] [address] [facility] [place] [address] Television Presenter: Oscar Mane MD BUN + CreatinineOrdered By: Willie Fortune on 02-12-2021 Creatinine [Mass/Vol] 0.92 mg/dL High 0.50 - 0.90 mg/dL [employer] Phone: GFR >60 >60 mL/min [facility] Phone: GFR Non- >60 >60 mL/min [employer] Phone: GFR/1.73 sq M.predicted MDRD (S/P/Bld) [Vol rate/Area] [employer] Phone: Comment on above: Average GFR for 60-6 9 years old: 85 mL/min/1.73sq m Chronic Kidney Disease: <60 mL/min/1.73sq m Kidney failure: <15 mL/min/1.73sq m eGFR calculated using average adult body mass. Additional eGFR calculator available at: http://www.globalrp.com/multiple_crcl_2012.htm GFR/1.73 sq M.predicted MDRD (S/P/Bld) [Vol rate/Area] NOT REPORTED [employer] Phone: Interpretation and review of laboratory results Abnormal [employer] Phone: Urea nitrogen (BldV) [Mass/Vol] 14 mg/dL 8 - 23 mg/dL [employer] Phone: Catheterization and angiogra phy procedure details panelOrdered By: Willie Fortune on 02-12-2021 Cardiac Diagnostic + PCI Report Demographics Patient AMANDA Sears Date of Study 02/12/2021 Name Date of 1950 Gender Female Age 70 year(s) Race Room [id number]^FIDEL^WILLIE Height: 67 inch, 170.18 cm Number Corporate [id number] Weight: 132 pounds, 59.9 kg ID # Patient [id number] BSA: 1.69 m^2 BMI: 20.67 Acct # kg/m^2 MR # [id number] Performing Physician Willie Fortune Referring Physician # [...] therapy 3. risk factor modification Signature ---- Electronically signed by Willie Fortune([facility]) on 02/12/2021 14:56 ---- Angiographic Findings Cardiac Arteries and Lesion [...] - Nitroglycerin I (more content not included)... [employer] Phone: [place], Mhpn Incoming Cardio Results From [facility] - 02/12/2021 2:56 PM EDT Cardiac Diagnostic + PCI Report Demographics Patient AMANDA Sears Date of Study 02/12/2021 Name Date of 1950 Gender Female Age 70 year(s) Race Room [id number]^YVES Height: 67 inch, 170.18 cm Number Corporate [id number] Weight: 132 pounds, 59.9 kg ID # Patient [id number] BSA: 1.69 m^2 BMI: 20.67 Acct # kg/m^2 MR # [id number] Performing Physician Willie Fortune Referring Physician # [...] therapy 3. risk factor modification Signature ---- Electronically signed by Willie Fortune([facility]ician) on 02/12/2021 14:56 ---- Angiographic Findings Cardiac Arteries and Lesion [...] units. - Heparin (more content not included)... [employer] Phone: POC Glucose FingerstickOrd ed By: Willie Fortune on 02-12-2021 Glucose [Mass/Vol] 89 mg/dL 65 - 105 mg/dL [employer] Phone: Glucose [Mass/Vol] 79 mg/dL 65 - 105 mg/dL [employer] Phone: Glucose [Mass/Vol] 100 mg/dL 65 - 105 mg/dL [facility] Work Phone: Vital Signs Date Time Vital Sign Value Performing Clinician Facility 05-17-2024 09:27-0400 Body height 170.18 cm DO [employer] Work Phone: [facility] 05-17-2024 09:27-0400 Body mass index (BMI) [Ratio] 19.1 kg/m2 DO [employer] Work Phone: [facility] 05-17-2024 09:27-0400 Body temperature 97.1 [degF] DO [employer] Work Phone: [facility] 05-17-2024 09:27-0400 Body weight 55.33 kg DO [employer] Work Phone: [facility] 05-17-2024 09:27-0400 Diastolic blood pressure 73 mm[Hg] DO Miguel [employer] Work Phone: [facility] 05-17-2024 09:27-0400 Heart rate 87 /min DO [employer] Work Phone: [facility] 05-17-2024 09:27-0400 Respiratory rate 16 /min DO [employer] Work Phone: [facility] 05-17-2024 09:27-0400 SaO2% (BldA) [Mass fraction] 99 % DO Miguel [employer] Work Phone: [facility] 05-17-2024 09:27-0400 Systolic blood pressure 120 mm[Hg] DO [employer] Work Phone: [facility] 03-15-2024 10:00-0400 Body temperature 97.6 [degF] DO Miguel [employer] Work Phone: [facility] 03-15-2024 10:00-0400 Body weight 52.61 kg DO [employer] Work Phone: [facility] 03-15-2024 10:00-0400 Diastolic blood pressure 85 mm[Hg] DO Miguel [employer] Work Phone: [facility] 03-15-2024 10:00-0400 Heart rate 96 /min DO Miguel [employer] Work Phone: [facility] 03-15-2024 10:00-0400 Respiratory rate 20 /min DO Miguel [facility] Work Phone: [facility] 03-15-2024 10:00-0400 SaO2% (BldA) [Mass fraction] 64 % DO Miguel [facility] Work Phone: [facility] 03-15-2024 10:00-0400 Systolic blood pressure 136 mm[Hg] DO Miguel [facility] Work Phone: [facility] 02-24-2024 15:03-0400 Body height 170.18 cm DO Miguel [facility] Work Phone: [facility] 02-24-2024 14:33-0400 Body height 170.18 cm DO Miguel [facility] Work Phone: [facility] 02-24-2024 14:33-0400 Body mass index (BMI) [Ratio] 18.4 kg/m2 DO [facility] [employer] Work Phone: [facility] 02-24-2024 14:33-0400 Body weight 53.52 kg DO Miguel [facility] Work Phone: [facility] 02-24-2024 14:33-0400 Diastolic blood pressure 75 mm[Hg] DO Miguel [facility] Work Phone: [facility] 02-24-2024 14:33-0400 Heart rate 73 /min DO Miguel House Work Phone: [facility] 02-24-2024 14:33-0400 Respiratory rate 18 /min DO Miguel House Work Phone: [facility] 02-24-2024 14:33-0400 SaO2% (BldA) [Mass fraction] 97 % DO Miguel House Work Phone: [facility] 02-24-2024 14:33-0400 Systolic blood pressure 123 mm[Hg] DO Miguel Brock Work Phone: [facility] 01-07-2024 11:27-0400 Body height 170.2 cm Eileen Fonseca DO Work Phone: [facility] [employer] 01-07-2024 11:27-0400 Body mass index (BMI) [Ratio] 18.14 kg/m2 Eileen Fonseca DO Work Phone: [facility] [employer] 01-07-2024 11:27-0400 Body weight 52.53 kg Eileen Fonseca DO [facility]: [facility] 01-07-2024 11:27-0400 Diastolic blood pressure 65 mm[Hg] Eileen Fonseca DO Work Phone: [facility] 01-07-2024 11:27-0400 Heart rate 71 /min Eileen Fonseca DO Work Phone: [facility] 01-07-2024 11:27-0400 SaO2% (BldA) [Mass fraction] 93 % Eileen Fonseca DO Work [facility]: [facility] 01-07-2024 11:27-0400 Systolic blood pressure 109 mm[Hg] Eileen Fonseca DO Work Phone: [facility] 02-13-2021 11:04-0400 Body temperature 98.29 [degF] Willie Fortune MD Work Phone: [employer] Work Phone: 02-13-2021 11:04-0400 Diastolic blood pressure 61 mm[Hg] Willie Fortune MD Work Phone: [employer] Work Phone: 02-13-2021 11:04-0400 Heart rate 81 /min Willie Fortune MD Work Phone: [employer] Work Phone: 02-13-2021 11:04-0400 Respiratory rate 20 /min Willie Fortune MD Work Phone: [employer] Work Phone: 02-13-2021 11:04-0400 SaO2% (BldA) [Mass fraction] 93 % Willie Fortune MD Work Phone: [employer] Work Phone: 02-13-2021 11:04-0400 Systolic blood pressure 119 mm[Hg] Willie Fortune MD Work Phone: [employer] Work Phone: 02-12-2021 11:29-0400 Body height 170.2 cm Willie Fortune MD Work Phone: [employer] Work Phone: 02-12-2021 11:29-0400 Body mass index (BMI) [Ratio] 20.75 kg/m2 Willie Fortune MD Work Phone: [employer] Work Phone: 02-12-2021 11:29-0400 Body weight 60.1 kg Willie Fortune MD Work Phone: [employer] Work Phone: Encounters Encounter Date Encounter Type Care Provider Facility Start: 05-17-2024 End: 05-17-2024 ambulatory DO Miguel Brock Work Phone: [facility] Work Phone: Start: 05-17-2024 End: 05-17-2024 Patient encounter procedure DO Miguel House Work Phone: [facility] Work Phone: Start: 05-17-2024 Registered Recurring DO Saad sears House Work Phone: [facility] Work Phone: Start: 05-05-2024 End: 05-05-2024 ambulatory [facility] Start: 05-02-2024 Non-patient / Non-visit DO Arielle rles House Work Phone: [facility] Work Phone: Start: 04-25-2024 End: 04-28-2024 Emergency department patient visit SYL Hernández CHERIC [facility] Start: 04-25-2024 End: 04-27-2024 ambulatory [facility] Start: 04-20-2024 End: 04-20-2024 ambulatory [facility] Start: 04-20-2024 End: 04-21-2024 ambulatory [facility] Start: 04-19-2024 Non-patient / Non-visit DO Arielle rles House Work Phone: [facility] Work Phone: Start: 04-18-2024 End: 04-19-2024 Emergency department patient visit MONICA MANUEL [facility] Start: 04-12-2024 Non-patient / Non-visit DO Arielle rles House Work Phone: [facility] Work Phone: Start: 04-04-2024 Non-patient / Non-visit DO Arielle rles House Work Phone: [facility] Work Phone: Start: 03-23-2024 Non-patient / Non-visit DO Arielle rles House Work Phone: [facility] Work Phone: Start: 03-22-2024 End: 03-22-2024 [facility] [place] [facility] Start: 03-15-2024 Non-patient / Non-visit DO Arielle rles House Work Phone: [facility] Work Phone: Start: 03-15-2024 Registered Recurring DO Saad s House [facility] Work [facility]: Start: 03-15-2024 End: 03-15-2024 ambulatory DO Miguel Brock Work Phone: [facility] Work Phone: Start: 03-15-2024 End: 03-15-2024 Patient encounter procedure DO Miguel Brock Work Phone: [facility] Work Phone: Start: 03-14-2024 End: 03-14-2024 ambulatory [place]IGUEL P [place] Facility:[facility] [address] Start: 03-03-2024 End: 03-03-2024 ambulatory [facility] Start: 03-02-2024 End: 03-02-2024 Evaluation and management of inpatient [facility] Start: 03-01-2024 End: 03-02-2024 Evaluation and management of inpatient [facility] Start: 02-26-2024 End: 02-26-2024 ambulatory [facility] Start: 02-24-2024 ambulatory Urszula Najerai lity:[facility] Start: 02-24-2024 End: 02-24-2024 Patient encounter procedure DO Miguel Brock Work Phone: [facility] Work Phone: Start: 02-23-2024 End: 02-23-2024 ambulatory [facility] Start: 02-12-2024 End: 02-12-2024 ambulatory [facility] Start: 02-05-2024 End: 02-24-2024 ambulatory [facility] Start: 02-01-2024 End: 02-02-2024 Emergency department patient visit FATEMEH [facility] Start: 01-28-2024 Orders Only Eileen Dover Elsdonovan john DO Work Phone: [facility] Start: 01-27-2024 End: 01-27-2024 Evaluation and management of inpatient FELIX BURNS [facility] Start: 01-26-2024 End: 01-27-2024 Evaluation and management of inpatient [facility] Start: 01-25-2024 End: 01-25-2024 ambulatory [facility] Start: 01-25-2024 Encounter for other preprocedural examination MIGUEL BROCK [facility] Start: 01-07-2024 Documentation procedure Beulah owens RN [facility] Start: 01-07-2024 End: 01-07-2024 Office outpatient visit 25 minutes Eileen M Raymundo DO Work Phone: [facility] Comment on above: Moderate COPD (chron ic obstructive pulmonary disease) (CMS- HCC) (Primary Dx); Pulmonary nodule; Xlxgk-7-xhvzxhfesxg deficiency ([facility]-H[facility]); Dyspnea on exertion; Abnormal CT of the chest; Tobacco abuse Start: 01-07-2024 End: 01-07-2024 ambulatory [facility] Start: 12-31-2023 Telephone encounter Eileen Hernández damir DO Work Phone: [facility] Start: 12-07-2023 Telephone encounter [facility] Start: 12-02-2023 End: 12-02-2023 ambulatory [facility] Start: 11-18-2023 End: 11-18-2023 ambulatory Renzo Gilliland MD Facility:[facility] Start: 11-12-2023 End: 11-12-2023 ambulatory MIGUEL BROCK Facility:[facility] Start: 10-21-2023 Telephone encounter [facility] Start: 10-19-2023 End: 10-20-2023 Emergency department patient visit CHAUNCEY WILLIAMSON [facility] Start: 10-19-2023 End: 10-20-2023 Emergency department patient visit CHAUNCEY WILLIAMSON [facility] Start: 08-10-2023 End: 08-10-2023 ambulatory MIGUEL BROCK Facility:[facility] [address] Start: 07-23-2023 End: 07-23-2023 ambulatory MIGUEL BROCK Facility:[facility] [address] Start: 02-17-[address] MIGUEL BROCK Facili ty:[facility] Start: 08-15-2022 End: 08-16-[address] MIGUEL BROCK Facility:[facility] Start: 02-12-2021 End: 02-13-2021 ambulatory WILLIE FORTUNE [facility] Start: 02-12-2021 End: 02-13-2021 Subsequent hospital visit by physician Willie Fortune MD Work Phone: [facility] Comment on above: Abnormal [...] Td Vaccines (3 - Td or Tdap) [facility] Start: 09-11-2028 DTaP/Tdap/Td vaccine (2 - Td) DTaP/Tdap/Td vaccine (2 - Td) [facility] Work Phone: Start: 12-11-2026 Screening for malign ant neoplasm of colon Colonoscopy [facility] Start: 01-25-2025 Tobacco Screening Tobacco Screening [facility] Start: 01-06-2025 Adult BMI Screening Adult BMI Screen ing [facility] Start: 01-06-2025 Tobacco Screening Tobacco Screening [facility] Start: 10-19-2024 Adult BMI Screening Adult BMI Screen ing [facility] Start: 10-19-2024 Tobacco Screening Tobacco Screening [facility] Start: 06-26-2024 Influenza vaccination Influenza Vacc ine [facility] Start: 03-03-2024 End: 03-03-2024 Patient encounter procedure 03/03/2024 2:00 PM EDT Office Visit [facility] [address] [place] [address] [place] [address] [place] [address] [facility] Start: 02-24-2024 Patient referral [facility] Work Phone: Start: 02-05-2024 Urine screening for protein Urine Microalbumin [facility] Start: 01-26-2024 End: 01-26-2024 Admission to same day surgery center 01/26/2024 12:00 PM EDT - 01/26/2024 1:00 PM EDT Surgery [facility] [address] [place] [phone] Eileen Fonseca, DO [address] [address] BRONCHOSCOPY ALVEOLAR LAVAGE [24223 (CPT )] [facility] Comment on above: BRONCHOSCOPY ALVEOLA R LAVAGE [62723 (CPT )] Start: 01-26-2024 End: 01-26-2024 [facility] alveolar lavage BRONCHOSCOPY ALVEOLAR LAVAGE LANGULAR OBSTRUCTION AND CHRONIC COUGH 01/26/2024 12:00 PM EDT [facility] Start: 01-26-2024 Subsequent hospital visit by physician 01/26/2024 12:00 PM EDT Hospital Encounter [facility] [address] [place] [phone] Eileen Fonseca, DO [address] [address] [facility] Start: 01-19-2024 End: 01-19-2024 Admission to establishment 01/19/2024 10:00 AM EDT Support Visit [facility] [address] [address] [facility] Start: 01-07-2024 End: 01-07-2024 Patient encounter procedure 01/07/2024 11:30 AM EDT Office Visit [facility] [address] [place] [id number] [place] [address] [place] [id number] [facility] Start: 12-24-2023 End: 12-24-2023 Patient encounter procedure 12/24/2023 3:45 PM EST Office Visit [facility] [address] [place] [address] Eileen Fonseca, DO [address] [place] [address] [facility] Start: 06-26-2023 COVID-19 Vaccine ( season) COVID-19 Vaccine ( season) [facility] Start: 06-05-2022 [facility] Start: 06-26-2021 Influenza vaccination Flu vacc ine (Season Ended) [employer] Phone: Start: 02-08-2021 Annual Wellness Visi t (AWV) Annual Wellness Visit (AWV) [employer] Phone: Start: 11-10-2020 Administration of varicella zoster vaccine Zoster (Shingles) Vaccine (2 of 2) This Week In Start: 2017 Fall Risk Screening Fall Risk Screen ing This Week In Start: 2017 Pneumococcal 65+ yea rs Vaccine (2 of 2 - PPSV23) Pneumococcal 65+ years Vaccine (2 of 2 - PPSV23) [employer] Phone: Start: 2007 Screening for osteoporosis DEXA (modify frequency per FRAX score) [employer] Phone: Start: 2002 Screening for malign ant neoplasm of breast Breast cancer screen [employer] Phone: Start: 2002 Screening for malign ant neoplasm of colon Colon cancer screen colonoscopy [employer] Phone: Start: 2002 Shingles Vaccine (1 of 2) Shingles Vaccine (1 of 2) [employer] Phone: Start: 1970 Adult BMI Follow Up Plan Adult BMI Follow Up Plan This Week In Start: 1970 Diabetic foot examination Diabetic Foot Exam [facility] Start: 1968 COVID-19 Vaccine (1) COVID-19 Vaccin e (1) [employer] Phone: Start: 1962 Lipid panel Lipid screen [facility] Work Phone: Start: 1952 Glaucoma screening Diabetic Op hthalmology Exam [facility] Start: 1952 Hepatitis C screening Hepatitis C sc reen [employer] Work Phone: Start: 1952 Medicare Annual Well ness Visit Medicare Annual Wellness Visit [facility] Start: 1952 Tobacco Counseling Tobacco Counselin g This Week In CT Chest WO contrast [facility] End: 02-12-2021 Glucose [Mass/volume] in Serum or Plasma POCT Glucose Point of Care Testing Routine One Time for 1 Occurrences starting 02/12/2021 until 02/12/2021 [employer] Phone: Comment on above: One Time for 1 Occur rences starting 02/12/2021 until 02/12/2021 End: 01-06-2025 Home O2 eval (desaturation screen) Home O2 eval (desaturation screen) Respiratory Care Routine Dyspnea on exertion 1 Occurrences starting 01/07/2024 until 01/06/2025 [employer] Work Phone: Comment on above: 1 Occurrences starti ng 01/07/2024 until 01/06/2025 Oxygen therapy [[facility] Data Set] Initiate Oxygen Therapy Protocol Respiratory Care Routine Daily until discontinued starting 02/12/2021 [employer] Work Phone: Comment on above: Daily until disconti nued starting 02/12/2021 Patient referral [facility] Work Phone: [facility] Immunizations Immunization Date Immunization Notes Care Provider Marium chatman 08-10-2023 influenza virus vaccine, unspecified formulation Eileen Fonseca DO Work Phone: [facility] 06-04-2022 tetanus toxoid, redu anthony diphtheria toxoid, and acellular pertussis vaccine, adsorbed Angiejudy Gunn LPN [facility] 09-15-2020 zoster vaccine recombinant Angie Luis A PULMONARY DISEASE SPECIALIST [facility] 09-15-2020 zoster vaccine, unspecified formulation Angie Luis A PULMONARY DISEASE SPECIALIST [facility] 08-10-2020 pneumococcal conjuga te vaccine, 13 valent Angie Luis A PULMONARY DISEASE SPECIALIST [facility] 09-23-2018 influenza, injectabl e, quadrivalent, preservative free Angie Luis A PULMONARY DISEASE SPECIALIST [facility] 09-11-2018 tetanus toxoid, redu anthony diphtheria toxoid, and acellular pertussis vaccine, adsorbed [facility] 11-01-2015 influenza, seasonal, injectable, preservative free Angie Luis A PULMONARY DISEASE SPECIALIST [facility] 09-13-2009 novel [id number], preservative-free, injectable Angie Luis A PULMONARY DISEASE SPECIALIST [facility] Payers Date Payer Category Payer Self-pay 2020 Medicaid [place]ICAID [id number] ONLY [id number] 2020-Present [phone] [address] [place] [address] [id number] 2020 Medicaid [id number] 2019 Private Health Insurance [id number] 2019 Medicare [employer] MEDICARE UHC MEDICARE DUAL COMPLETE [id number] 2019-Present [phone] [address] [address] [place] [address] [id number]. [id number] 2017 Medicare [id number] 1.2.840.453028.1.13.239. 2.7.3.950112.315 1952 Unknown [id number] 2.16.840.1.109104.3.579. 2.177 1952 Unknown [id number] 2.16.840.1.208496.3.579. 2.593 1952 Unknown [id number] 2.16.840.1.847707.3.579. 2.593 1952 Unknown [id number] 2.16.840.1.811801.3.579. 2.1285 1952 Unknown [id number] 2.16.840.1.149398.3.579. 2.1285 1952 Unknown [id number] 2.16.840.1.770873.3.579. 2.1285 1952 Unknown [id number] 2.16.840.1.674010.3.579. 2.1285 1952 Unknown [id number] 2.16.840.1.971372.3.579. 2.1285 1952 Unknown [id number] 2.16.840.1.462670.3.579. 2.1285 1952 Unknown [id number] 2.16.840.1.123386.3.579. 2.1285 1952 Unknown [id number] 2.16.840.1.039304.3.579. 2.1285 1952 Unknown [id number] 2.16.840.1.123614.3.579. 2.1285 1952 Unknown [id number] 2.16.840.1.102674.3.579. 2.1285 1952 Unknown [id number] 2.16.840.1.933541.3.579. 2.1285 1952 Unknown [id number] 2.16.840.1.738229.3.579. 2.1285 1952 Unknown [id number] 2.16.840.1.211182.3.579. 2.1285 1952 Unknown [id number] 2.16.840.1.473249.3.579. 2.1285 1952 Unknown [id number] 2.16.840.1.285473.3.579. 2.1285 1952 Unknown [id number] 2.16.840.1.898502.3.579. 2.1285 1952 Unknown [id number] 2.16.840.1.756077.3.579. 2.1285 1952 Unknown [id number] 2.16.840.1.581689.3.579. 2.1285 1952 Unknown [id number] 2.16.840.1.009406.3.579. 2.1285 1952 Unknown [id number] 2.16.840.1.645140.3.579. 2.1285 1952 Unknown [id number] 2.16.840.1.643741.3.579. 2.1285 1952 Unknown [id number] 2.16.840.1.711078.3.579. 2.1285 1952 Unknown [id number] 2.16.840.1.499153.3.579. 2.1285 1952 Unknown [id number] 2.16.840.1.471921.3.579. 2.1285 1952 Unknown [id number] 2.16.840.1.975150.3.579. 2.1285 1952 Unknown [id number] 2.16.840.1.866138.3.579. 2.1285 1952 Unknown [id number] 2.16.840.1.128609.3.579. 2.1285 1952 Unknown [id number] 2.16.840.1.505019.3.579. 2.1285 1952 Unknown [id number] 2.16.840.1.474211.3.579. 2.1285 1952 Unknown [id number] 2.16.840.1.064471.3.579. 2.1285 1952 Unknown [id number] 2.16.840.1.117693.3.579. 2.718 1952 Unknown [id number] 2.16.840.1.883020.3.579. 2.718 1952 Unknown [id number] 2.16.840.1.246200.3.579. 2.718 1952 Unknown [id number] 2.16.840.1.556177.3.579. 2.718 1952 Unknown [id number] 2.16.840.1.115458.3.579. 2.718 Medicare Medicare [id number] Unknown [id number] 2.16.840.1.617683.3.579. 2.531 Social History Date Type Detail Facility Start: 02-12-2021 End: 01-26-2024 Tobacco smoking status [facility]oker [facility] Start: 02-12-2021 End: 02-14-2021 Cigarettes smoked current (pack per day) - Reported [employer] Phone: Start: 02-12-2021 End: 01-26-2024 Tobacco use and exposure Never used [employer] Start: 02-12-2021 End: 01-26-2024 Alcohol intake Current drinker of alcohol (finding) [employer] Phone: Start: 11-22-2015 Alcohol Comment RARE 1 DRINK E VERY 6 MONTHS [employer] Phone: Start: 1950 Sex Assigned At Not on file [facility] Phone: Exposure to SARS-CoV -2 (event) Not sure [employer] End: 10-16-2023 History of tobacco use Cigarette Smoker [facility] Start: 02-14-2021 End: 10-19-2023 Social connection and isolation panel [facility] [employer] [facility] Do you belong to any clubs or organizations such as buddhist groups, unions, fraternal or athletic groups, or school groups? No [facility] Attends Club or Organization Meetings Not on file [facility] How often to you hav e a drink containing alcohol? Monthly or less [facility] How many standard dr inks containing alcohol do you have on a typical day? 1 or 2 [facility] How often do you hav e 6 or more drinks on 1 occasion? Never [facility] Do you feel stress - tense, restless, nervous, or anxious, or unable to sleep at night because your mind is troubled all the time - these days [OSQ] Not at all [facility] Start: 02-14-2021 Alcohol Comment rare [facility] Start: 01-07-2024 Tobacco smoking stat [facility] Ex-smoker [facility] Start: 02-24-2024 End: 05-17-2024 History of tobacco use Current smoker [facility] Start: 1950 Sex Assigned At Female F [facility] Medical Equipment Procedure Code Equipment Code Equipment Origin al Text Equipment Identifier Dates AAA repair with graft GRAFT HEMASHIELD [id number] FDA Start: 04-18-2019 AAA repair with graft GRAFT HEMASHIELD [id number] FDA Start: 04-18-2019 Brng Hum 36-44mm Std Shldr - [id number] Start: 09-13-[address] c Rpl [id number] - [id number] Start: 09-13-2018 Cbl Orth Lcp 750 mm Ss 1.7mm - [id number] Start: 09-13-2018 Lens Iol Ultrase rt 20.5d - [id number] - [id number] Start: 09-02-2018 Ty Hum Cmprh 44m m Cocr +5mm - [id number] Start: 09-13-2018 Scr Bn 25mm 4.75 mm Fx Ang Lck - [id number] Start: 09-13-2018 USE DIRECTED WITH LANTUS DAILY [id number] Start: 08-25-2022 USE TO TEST 2 TI MES DAILY [id number] Start: 07-22-2022 Goals Date Patient Goal Desired Activity /State Personal health goal Comment on above: Formatting of this n ote might be different from the original. Evaluation of progress towards goal: Return home with self care, quit smoking. - SUBHA Chase 09/12/18 2:02 PM Clinical Notes 02-12-2021 to 04-18-2024 Beulah Coh RN - 01/07/2024 12:11 PM Salena Fonseca [...] Sanaz Burns DO on 04/18/2024 1:42 PM [facility] 03-14-2024 Note Entered by MATILDA BROCK DO on March 14, 2024 07:37:29 EDT From: MIGUEL BROCK DO To: [facility]/pharmacy #[id number] Sent: 03/14/2024 07:37:29 EDT Subject: Medication Management Documented Complete:fluticasone nasal (fluticasone 50 mcg/inh nasal spray) Signed by MIGUEL BROCK DO 03/14/2024 07:37:00 EDT Approved fluticasone nasal (FLUTICASONE PROP 50 MCG SPRAY) SPRAY 1 SPRAY INTO EACH NOSTRIL EVERY DAY Qty: 32 mL Days Supply: 120 Refills: 4 Substitutions Allowed Route To Pharmacy - [facility]/pharmacy #[id number] Patient matched by MIGUEL BROCK DO on 03/14/2024 07:37:12 EDT From: [employer] [id number] To: MIGUEL BROCK DO Sent: March 12, 2024 6:55:34 AM CDT Subject: Medication Management Due: March 13, 2024 12:03:07 AM CDT On Hold Pending Signature Dispensed Drug: fluticasone nasal (fluticasone 50 mcg/inh nasal spray), SPRAY 1 SPRAY INTO EACH NOSTRIL EVERY DAY Quantity: 32 mL Days Supply: 120 Refills: 4 Substitutions Allowed Notes from Pharmacy: [facility] 01-11-2024 Note Entered by MATILDA BROCK DO on January 11, 2024 07:47:51 EDT From: MIGUEL BROCK DO To: [facility]/pharmacy #[id number] Sent: 01/11/2024 07:47:51 EDT Subject: Medication Management Approved Durable Medical Equipment for Prescription (ONE TOUCH ULTRA BLUE TEST STRP) TEST TWICE DAILY Qty: 100 Strip Days Supply: 30 Refills: 4 Substitutions Allowed Route To Pharmacy - [facility]/pharmacy #[id number] From: [employer] [id number] To: MIGUEL BROCK DO Sent: January 10, 2024 11:22:06 PM CDT Subject: Medication Management Due: January 11, 2024 12:31:07 AM CDT On Hold Pending Signature Dispensed Drug: ONE TOUCH ULTRA BLUE TEST STRP, TEST TWICE DAILY Quantity: 100 Strip Days Supply: 30 Refills: 4 Substitutions Allowed Notes from Pharmacy: [facility] 01-07-2024 History of Presen t illness Narrative SENT CARDIAC CLEARANCE LETTER TO DR Servando ELLIS FOR UPCOMING BRONCHOSCOPY WITH BAL UNDER GENERAL ANESTHESIA documented in this encounter [facility] 01-07-2024 History of Presen t illness Narrative Images from the original note were not included. [facility] Sleep Progress Note Patient - [...] nodules. * Emphysema. Dr. Eileen Fonseca DO. [facility] Office: [phone] documented in this encounter This Week In 12-31-2023 Miscellaneous Notes PATIENT RETURNED CALL. NOT SURE WHO CALLED PATIENT. PLEASE CALL HER BACK AT [phone] documented in this encounter [facility] 12-31-2023 Telephone encounter Note PATIENT RETURNED CALL. NOT SURE WHO CALLED PATIENT. PLEASE CALL HER BACK AT [phone] [facility] 12-31-2023 Miscellaneous Notes She has abnormal imaging from 12/03 and has been scheduled and not shown it looks like twice? Can we reach out to her and see if she can come in and notify PCP of imaging and efforts please just so he is up to date? Thank you documented in this encounter [facility] 12-31-2023 Telephone encounter Note She has abnormal imaging from 12/03 and has been scheduled and not shown it looks like twice? Can we reach out to her and see if she can come in and notify PCP of imaging and efforts please just so he is up to date? Thank you [facility] 12-07-2023 Miscellaneous Notes ----- Message from Eileen Fonseca DO sent at 12/07/2023 10:35 AM EST ----- Can she come in on at 3:45? Division Order Analyst spoke with patient and informed her that SE would like to see her on 12/24/2023 at 3:45pm if patient is available. Patient stated that she is able to come into the office on 12/24/2023 at 3:45pm. Appointment moved to 12/24/2023. documented in this encounter [facility] 12-07-2023 Telephone encounter Note ----- Message from Eileen Fonseca DO sent at 12/07/2023 10:35 AM EST ----- Can she come in on at 3:45? [facility] 12-07-2023 Telephone encounter Note Division Order Analyst spoke with patient and informed her that SE would like to see her on 12/24/2023 at 3:45pm if patient is available. Patient stated that she is able to come into the office on 12/24/2023 at 3:45pm. Appointment moved to 12/24/2023. [facility] 10-21-2023 Miscellaneous Notes Pt called again [...] up. Pt agreeable. documented in this encounter [facility] 10-21-2023 Telephone encounter Note Pt called again on SE nurse line stating she needs a return phone call JAMEEL. Returned pt's call and informed her once SE is back and reviews everything/ lets us know where we can add her, we will call her. Pt is aware + agreeable. [facility] 10-21-2023 Telephone encounter Note Pt returned call. Pt agreeable to schedule CT chest - number to central scheduling provided. Advised pt once CT is scheduled to call office for follow up. Pt agreeable. [facility] 09-10-2023 Note Entered by MATILDA BROCK DO on September 10, 2023 08:32:46 EST From: MIGUEL BROCK DO To: [facility]/pharmacy #[id number] Sent: 09/10/2023 08:32:45 EST Subject: Medication Management Approved Order:calcium-vitamin D (calcium (as carbonate)-vitamin D 250 mg-125 intl units oral tablet) TAKE 1 TABLET BY MOUTH TWICE A DAY Qty: 180 tab(s) Days Supply: 90 Refills: 2 Substitutions Allowed Route To Pharmacy - [facility] Note from Pharmacy: REQUEST FOR 90 DAYS PRESCRIPTION. Signed by MIGUEL BROCK DO Cancelled: Discontinue:calcium-vitamin D (Oyster Shell Calcium with Vitamin D 250 mg-3.125 mcg (125 intl units) oral tablet) Signed by MIGUEL BROCK DO From: [facility] To: MIGUEL BROCK DO Sent: September 10, 2023 7:30:39 AM NEEDLE BAR MOLDER Subject: Medication Management Due: September 11, 2023 7:30:39 AM NEEDLE BAR MOLDER Originally Prescribed Drug: Drug: calcium-vitamin D (calcium [...] from Pharmacy: REQUEST FOR 90 DAYS PRESCRIPTION. [facility] 02-13-2021 Hospital Discharg e instructions Riley Solis [...] most local grocery stores, pharmacies, and chain [employer]. If you have any questions about your diet or nutrition, call the hospital and ask for the dietitian. Cardiac diet low in fat and sodium Riley Solis APRN - CNP - 02/13/2021 7:50 AM EDT Follow-up in [place] office in 7 to 10 days for cath site evaluation and continued monitoring. The following attachments cannot be sent through Care Everywhere.PCI (Percutaneous Coronary Intervention): Post-op (Gambian)PCI (Percutaneous Coronary Intervention): General Info (Gambian)atorvastatin (Gambian)clopidogrel (Gambian)documented in this encounter [facility] Phone: 02-12-2021 History of Presen t illness Narrative Patient admitted to room 1011 from PACU. VS taken, telemetry placed and call light given/within reach. Patient A&O and given room orientation. Orders released/reviewed, initial assessment completed and navigator started. See chart for more detail. 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[facility]) Axvjo-4-myspoxixbik deficiency Dyspnea on exertion Other dyspnea and respiratory abnormality Abnormal CT of the chest Nonspecific (abnormal) findings on radiological and other examination of other intrathoracic organs Tobacco abuse Tobacco use disorder [facility] Diagnosis Onset Date Resolution Status 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 [facility] Work Phone: Evaluation note* Diagnosis Onset Date Resolution Status 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 March 15, 2024 11:42am Note Date/Time March 15, 2024 9:58a m [facility] [place] [address] Cancer Center Note Signed Patient: Jazzmine Patel MR#: [id number] : 1950 Acct:[id number] Age/Sex: 73 / F Type: DEP AMB [...] today having undergone a screening EBUS in [place] on March 01, 2024. A single abnormal [...] to clinic today having undergone EBUS in [place]. EBUS was completedon March 01, 2024 copious [...] a 3 week follow up visit before [facility] Medical History Medical History Bronchiolo-alveolar adenocarcinoma of [...] signed by Urszula Etienne MD> 03/15/24 1142 [facility] Work Phone: Reason for Referral Status Reason Specialty Diagnoses / Procedures Referred By Contact Referred To Contact Open Specialty Services Required Cardiac Rehabilitation Diagnoses Abnormal stress test [address] [address] Scheduling Instructions S/p stents Specialty Diagnoses / Procedures Referred By Contac t Referred To Contact Diagnoses Dyspnea on exertion Procedures Home O2 eval (desaturation screen) Eileen Fonseca DO [address] [address] Referral ID Status Reason Start Date Expiration Date V isits Requested Visits Authorized [id number] Pending Review 01/07/2024 01/06/2025 1 1 Advance Directives No Advanced Directives Records FoundDocuments on File Type Date Recorded 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 [employer] anation ACP-Advance Directive ACP-Power of Access Nurse Latest Code Status on File Code Status Date Activated Date Inactivated Comments Full Code 02/12/2021 7:33 PM Full Code 12/04/2015 10:41 AM 12/04/2015 7:30 PM Documents on File Type Date Recorded 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 [employer] Durable Power of Access Nurse Latest Code Status on File Code Status Date Activated Date Inactivated Comments Full Code 08/09/2020 3:44 PM 08/10/2020 7:03 PM Code Status History Code Status Date Activated Date Inactivated Comments Full Code 09/12/2018 5:17 AM 09/16/2018 7:33 PM Documents on File Type Date Recorded 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 DATE CREATED AUTHOR AUTHOR'S ORGANIZ ATION 03/03/2023 [facility] DATE CREATED AUTHOR AUTHOR'S ORGANIZ ATION 03/17/2024 [facility] DATE CREATED AUTHOR AUTHOR'S ORGANIZ ATION 04/27/2024 [facility] DATE CREATED AUTHOR AUTHOR'S ORGANIZ ATION 04/28/2024 [facility] DATE CREATED AUTHOR AUTHOR'S ORGANIZ ATION 05/11/2024 [facility] DATE CREATED AUTHOR AUTHOR'S ORGANIZ ATION 05/29/2024 [facility] Care Teams (unrecognized sec tion and content) [employer] Specialist Relationship Specialty Start Date End Date Miguel Brock DO [address] [place] [address] PCP - General 10/17/16 School Psychology Specialist Relationship Specialty Start Date End Date Miguel Brock DO [address] [place] [address] PCP - General 10/17/16 School Psychology Specialist Relationship Specialty Start Date End Date Miguel Brock DO [address] [place] [address] PCP - General 10/17/16 School Psychology Specialist Relationship Specialty Start Date End Date Miguel Brock DO [address] [place] [id number] PCP - General Family Medicine 01/25/24 Team [...] Provider Active Start: April 12, 2024 Urszula Eteinne MD Attending Provid er, Other Provider Active [...] BE BASED ON THE PRIMARY CLINICAL RECORDS. [facility] [employer] provides no warranty or guarantee of the accuracy or completeness of information in this document.
--- NOTE | 2024-06-21 10:17 | CT_ITS ---
[address] [address] Patient Name: NICOLAS PATEL MRN: [id number] date: 1950 Sex: F Assigned Patient Location: CT Current Patient Location: Accession/Order Number: [id number] Exam Date: 06/21/2024 10:10 Report Date: 06/22/2024 05:26 At the request of: NON-STAFF PHYSICIAN Procedure: CT chest wo con EXAMINATION: CT chest wo con HISTORY: Bronchiolo-Alveolar Adenocarcinoma Of Left Lung ; history of left lung cancer; post radiation treatment COMPARISON: CT chest 10/22/2016 TECHNIQUE: Axial, Coronal, and Sagittal images were created without the administration of IV contrast material. Dose reduction techniques were achieved by using automated exposure control and/or adjustment of mA and/or kV according to patient size and/or use of iterative reconstruction technique. FINDINGS: LUNGS: Thick curvilinear soft tissue opacity within posterior aspect of lingula extending from near hilum to the lateral chest wall, 4.3 x 1.2 x 2.6 cm. Moderate emphysematous changes throughout the lungs. A few scattered tiny nodules within left lung. Mild biapical pleural scarring. PLEURA: No mass, effusion, or pneumothorax. VASCULATURE: No abnormality. CRISTINA: No mass or pathologic adenopathy. MEDIASTINUM: No mass or pathologic adenopathy. CARDIAC: No enlargement, pericardial thickening, or pericardial effusion. Coronary Artery calcifications: Coronary calcifications are moderate. AORTA: Marked atherosclerotic disease of the descending thoracic and upper abdominal aorta. The CHEST WALL: No mass or axillary adenopathy BONES: No bone lesion or fracture. LIMITED ABDOMEN: No suspicious findings. Limited images of the upper abdomen. OTHER: Negative. CT/CT chest wo con IMPRESSION: 1. Thickened band of soft tissue within lingula extending from near the hilum to the lateral chest wall 4.3 x 1.2 x 2.6 cm of uncertain etiology. This was not present on 10/22/2016. Postsurgical scarring versus infiltrates versus neoplasm. 2. Moderate emphysematous changes. 3. Marked atherosclerotic disease of descending thoracic and upper abdominal aorta. Electronically authenticated by: ANTHONY PALOMARES Date: 06/22/2024 05:26
== END 2024-06-21 09:55 | disposition home or self-care (01) ==
LOC: CT 09:54
PROVIDERS: PCP Family Medicine
DX: C34.92 Malignant neoplasm of unspecified part of left bronchus or lung (principal); R05.3 Chronic cough; R06.02 Shortness of breath
CPT/HCPCS: 71250; G0463

== ENCOUNTER 2024-07-07 07:50 | Outpatient (RCR) | payer MEDICARE, MEDICAID, SELFPAY | END 2024-07-25 23:59 | disposition home or self-care (01) | LOC: HEMC 07:50 | PROVIDERS: PCP Family Medicine; Visit Provider Internal Medicine Hematology & Oncology | DX: C34.92 Malignant neoplasm of unspecified part of left bronchus or lung (principal); R06.02 Shortness of breath; R05.3 Chronic cough | CPT/HCPCS: G0463 ==

== ENCOUNTER 2024-08-04 08:00 | Outpatient (RCR) | payer MEDICARE, SELFPAY | END 2024-08-25 23:59 | disposition home or self-care (01) | LOC: HEMC 08:00 | PROVIDERS: PCP Family Medicine; Visit Provider Internal Medicine Hematology & Oncology | DX: C34.92 Malignant neoplasm of unspecified part of left bronchus or lung (principal); F17.210 Nicotine dependence, cigarettes, uncomplicated; J43.9 Emphysema, unspecified | CPT/HCPCS: G0463 ==

== ENCOUNTER 2024-08-10 08:58 | Outpatient (OUT) | payer MEDICARE, SELFPAY ==
--- OUTSIDE RECORDS SUMMARY | 2024-08-10 09:11 | XMS_ITS | CCD ---
Author Organization [facility] InformFormerly [facility] Care Team Providers Care Brick Paver Name Role Phone House DO, Sr Miguel Vargas Primary Care Provider WILLIE PARRA Admitting Unavailable WILLIE PARRA Attending Unavailable WILLIE PARRA Referring Unavailable HOUSE, SR MIGUEL Vargas Primary [...] Attending Provider MD Anisha Wolf Referring Provider [phone] MIGUEL BROCK Primary Care Unavailable CHAUNCEY WILLIAMSON Attending Unavailable CHAUNCEY WILLIAMSON Attending Unavailable CHAUNCEY WILLIAMSON Referring Unavailable MIGUEL BROCK Primary Care Unavailable CHAUNCEY WILLIAMSON Attending Unavailable TERIGALLOA L Referring Unavailable MIGUEL BROCK Primary Care Unavailable EILEEN FONSECA Referring Unavailable VINOD, MIGUEL Vargas Primary Care Unavailable MIGUEL BROCK Primary Care Unavailable FATEMEH ALAMO Attending Unavailable FATEMEH ALAMO Attending Unavailable FATEMEH ALAMO Referring Unavailable MIGUEL BROCK Primary Care Unavailable EILEEN FONSECA Referring Unavailable VINOD, MIGUEL Vargas Primary Care Unavailable BRENNON, ANISHA Referring Unavailable HOUSE, MIGUEL P Primary Care Unavailable HOUSE, MIGUEL P Referring Unavailable HOUSE, MIGUEL P Primary Care Unavailable HOUSE, MIGUEL P Referring Unavailable HOUSE, MIGUEL P Primary Care Unavailable LOLA, EILEEN M Referring Unavailable HOUSE, MIGUEL P Primary Care Unavailable HOUSE, MIGUEL P Primary Care Unavailable BREANNE ANNE Attending Unavailable MONICA MANUEL Attending Unavailable MONICA MANUEL Referring Unavailable HOUSE, MIGUEL P Primary Care Unavailable LOLA, EILEEN M Attending Unavailable LOLA, EILEEN M Referring Unavailable HOUSE, MIGUEL P Primary Care Unavailable LOLA, EILEEN M Attending Unavailable LOLA, EILEEN M Referring Unavailable HOUSE, MIGUEL P Primary Care Unavailable LOLA, EILEEN M Attending Unavailable LOLA, EILEEN M Referring Unavailable HOUSE, MIGUEL P Primary Care Unavailable HOUSE, MIGUEL P Primary Care Unavailable SYL AMARO Attending Unavailable BETO BLACKWOOD Admitting Unavailable [facility]ARDIOLOG[facility], [facility] Consult[facility] Unavailable SYL AMARO Attending Unavailable SYL AMARO Referring Unavailable HOUSE, MIGUEL P Primary Care Unavailable [place], DO Rivera Primary Care Provider MD Urszula Etienne Attending Provider MD Anisha Wolf Referring Provider [phone] DO Miguel Brock Primary Care Provider MD Urszula Etienne Attending Provider MD Anisha Wolf Referring Provider EILEEN FONSECA Admitting Unavailable LOLAMIANA M Attending Unavailable HOUSE, MIGUEL P Primary Care Unavailable LOLA, EILEEN M Attending Unavailable LOLA, EILEEN M Referring Unavailable HOUSE, MIGUEL P Primary Care Unavailable FELIX BURNS Attending Unavailable HOUSE, MIGUEL P Primary Care Unavailable LOLA, EILEEN M Admitting Unavailable LOLA, EILEEN M Attending Unavailable HOUSE, MIGUEL P Primary Care Unavailable PAULA CARNES Attending Unavailable HOUSE, MIGUEL P Primary Care Unavailable LOLA, EILEEN M Attending Unavailable LOLA, EILEEN M Referring Unavailable HOUSE, MIGUEL P Primary Care Unavailable LOLA, EILEEN M Attending Unavailable LOLA, EILEEN M Referring Unavailable HOUSE, MIGUEL P Primary Care Unavailable HOUSE, MIGUEL P Referring Unavailable HOUSE, MIGUEL P Primary Care Unavailable LOLA, EILEEN M Attending Unavailable HOUSE, MIGUEL P Referring Unavailable HOUSE, MIGUEL P Primary Care Unavailable LOLA, EILEEN M Attending Unavailable HOUSE, MIGUEL P Referring Unavailable HOUSE, MIGUEL P Primary Care Unavailable LOLAEILEEN M Attending Unavailable HOUSE, MIGUEL P Referring Unavailable HOUSE, MIGUEL P Primary Care Unavailable LOLA, EILEEN M Attending Unavailable HOUSE, IMGUEL P Referring Unavailable HOUSE, MIGUEL P Primary Care Unavailable House DO, Miguel Vargas Primary Care Provider HOUSE, MIGUEL P Primary Care Unavailable Renzo Gilliland MD Attending Unavailable HOUSE, MIGUEL P Primary Care Unavailable Renzo Gilliland MD Attending Unavailable HOUSE, MIGUEL P Primary Care Unavailable Renzo Gilliland MD Attending Unavailable HOUSE, DO MIGUEL P Admitting Unavailable HOUSE, DO MIGUEL P Attending Unavailable HOUSE, MIGUEL P Primary Care Unavailable HOUSE, MIGUEL P Primary Care Unavailable Allergies Allergy Classification Reported Allergen(s) Allergy Type Date of Onset Reaction(s) Facility (2 sources) Sulfamethoxazole / Trimethoprim; Translations: [Bactrim] Drug Allergy [facility] Repository (11 sources) Sulfamethoxazole / Trimethoprim; Translations: [SULFAMETHOXAZOLE-TR IMETHOPRIM] Drug Allergy [facility] Medications Current Medications Medication Drug Class(es) Dates Sig (Normalized) Sig (Original) acetaminophen 325 mg oral tablet (2 sources) Start: 02-12-2021 acetaminophen (TYLENOL) tablet 650 mg End: 02-13-2021 take 2 tablets by mouth every six hours as needed for pain acetaminophen (TYLENOL) 325 MG tablet Take 650 mg by mouth every 6 hours as needed for Pain 0 02/13/2021 Discontinued (Stop Taking at Discharge) [id number] 200 actuat albuterol 0.09 mg/actuat metered dose inhaler (20 sources) beta2-Adrenergic Agonist Start: 04-27-2024 take 2 puff(s) by inhalation every four hours as needed for wheezing albuterol (PROVENTIL HFA;VENTOLIN HFA) 90 mcg/actuation inhaler Indications: Moderate COPD (chronic obstructive pulmonary disease) ([facility]) Inhale 2 puffs every 4 (four) hours as needed for wheezing. 6.7 g 11 04/27/2024 Active Start: 08-03-2023 take 2 puff(s) by mo uth every four hours as needed albuterol (PROVENTIL HFA;VENTOLIN HFA) 90 mcg/actuation inhaler Indications: Moderate COPD (chronic obstructive pulmonary disease) ([place]) TAKE 2 PUFFS BY MOUTH EVERY 4 HOURS NEEDED FOR WHEEZE 6.7 g 11 08/03/2023 Active Start: 05-11-2023 take 1 dose by inhal ation four times daily as needed for wheezing albuterol (PROVENTIL,VENTOLIN) 2.5 mg /3 mL (0.083 %) nebulizer solution Indications: Chronic obstructive pulmonary disease, unspecified COPD type ([place]) INHALE ONE VIAL VIA NEBULIZER FOUR TIMES [...] 0 Active apixaban 5 mg oral tablet (13 sources) Factor Xa Inhibitor Start: 05-06-2022 take 1 tablet by mouth twice daily ELIQUIS 5 mg tablet Indications: Paroxysmal atrial fibrillation ([place]) TAKE 1 TABLET BY MOUTH TWICE DAILY 60 tablet 10 05/06/2022 Active Start: 01-12-2019 End: 02-13-2021 take 1 tablet by mouth twice daily Apixaban (Eliquis) 5 mg Tablet Active 5 MG PO Twice daily January 12, 2019 12:00am aspirin 81 mg chewable tablet (12 sources) Platelet Aggregation Inhibitor, Nonsteroidal Anti-inflammatory Drug Start: 06-16-2024 aspirin 81 mg chewable tablet Chew 1 tablet (81 mg total) and swallow in the morning. 90 tablet 4 06/16/2024 Active Start: 02-18-2021 take 1 tablet by denae th once daily aspirin 81 mg Take 1 [...] mouth daily 30 tablet 3 02/13/2021 Active 120 actuat budesonide 0.16 mg/actuat / formoterol fumarate 0.0048 mg/actuat / glycopyrrolate 0.009 mg/actuat metered dose inhaler (1 source) Corticosteroid, beta2-Adrenergic Agonist take 2 puff(s) by inhalation at bedtime wwansqdpto-mjwibwvl-rsxtzamdrj (BREZTRI AEROSPHERE) 160-9-4.8 mcg/actuation HFA aerosol inhaler Inhale 2 puffs in the morning and at bedtime. Active calcium carbonate 1250 mg / cholecalciferol 200 unt oral tablet (9 sources) Vitamin D Sta rt: 2 take 2 tablets by mouth three times [...] mg colloidal oatmeaL (AVEENO SOOTHING BATH) packet (8 sources) Start: 12-16-2021 colloidal oatm eaL (AVEENO SOOTHING BATH) packet Apply 1 application topically daily. 8 packet 12/16/2021 Active Start: 12-16-2021 colloidal oatm eaL (AVEENO SOOTHING BATH) packet Apply 1 application topically daily. 8 packet 0 12/16/2021 Active 24 hr dilTIAZem hydrochloride 180 mg extended release oral capsule (12 sources) Calcium Channel Nataly Start: 04-28-2024 take 1 capsule by mouth every twenty-four hours in the morning dilTIAZem CD (CARDIZEM CD) 180 mg 24 hr capsule Take 1 capsule (180 mg total) by mouth in the morning. 30 capsule 04/28/2024 Active Start: 04-18-2019 take 120 mg by mouth once ivania y Diltiazem Hcl Active 120 MG PO Daily April 18, 2019 12:00am doxycycline hyclate 100 mg oral capsule (3 sources) Tetracycline-class Drug Start: 05-06-2024 End: 08-04-2024 take 1 capsule by mouth three times weekly doxycycline (VIBRAMYCIN) 100 mg capsule Indications: Moderate COPD (chronic obstructive pulmonary disease) ([facility]) , Bronchiectasis without complication ([facility]) Take 1 capsule (100 mg total) by mouth 3 (three) times a week for 90 days. 36 capsule 3 05/06/2024 08/04/2024 Active Start: 01-28-2024 End: 02-11-2024 take 1 capsule [...] 10/29/2023 Active ezetimibe 10 mg oral tablet (8 sources) Dietary Cholesterol Absorption Inhibitor Start: 12-02-2022 take 1 tablet by mouth in the morning ezetimibe (ZETIA) 10 mg tablet Take 1 tablet (10 mg total) by mouth in the morning. 12/02/2022 Active fluticasone propionate 0.05 mg/actuat metered dose nasal spray (7 sources) Corticosteroid Start: 03-03-2023 take 1 spray(s) nasal route once daily fluticasone propionate (FLONASE) 50 mcg/actuation nasal spray Indications: Acute sinusitis, recurrence not specified, unspecified location SPRAY 1 SPRAY INTO EACH NOSTRIL EVERY DAY 32 mL 4 03/03/2023 Active 60 actuat fluticasone propionate 0.25 mg/actuat / salmeterol 0.05 mg/actuat dry powder inhaler (11 sources) Corticosteroid, beta2-Adrenergic Agonist Start: 11-27-2021 take [...] the lungs 2 times daily 0 Active FSWKPRBWNHN-JSEGSBUCR-GQYWSD IN (1 source) take 1 puff(s) by inhalation once daily OEMUMXRDZQJ-BWVMCGSRH-ARTSDM IN Inhale 1 puff into the lungs daily 0 Active 12 hr guaiFENesin 600 mg extended release oral tablet (1 source) St ar t: 24 guaiFENesin (MUCINEX) 600 mg tablet extended release 12hr Indications: Moderate COPD (chronic obstructive pulmonary disease) ([facility]) , Bronchiectasis without complication ([facility]) Take 2 tablets (1,200 mg total) by mouth every 12 (twelve) hours. 120 tablet 6 05/05/2024 Active 3 ml insulin glargine 100 unt/ml pen injector (20 sources) Insulin Analog St ar t: 10 inject 100 [IU] by subcutaneous injection in the morning insulin glargine (LANTUS SOLOSTAR U-100 INSULIN) 100 unit/mL (3 mL) insulin pen Inject 100 Units under the skin in the morning. 08/10/2023 Active Start: 01-12-2019 inject 16 [IU] by christine bcutaneous injection once daily Insulin Glargine (Lantus U-100 [...] total) under the skin Daily at 0700. Active insulin glargine (LANTUS) 100 UNIT/ML injection vial Inject 16 Units into the skin nightly 0 Active 24 hr isosorbide mononitrate 30 mg extended release oral tablet (9 sources) Nitrate Vasodilator Start: 08-28-2022 take 1 tablet by mouth once daily isosorbide mononitrate (IMDUR) 30 mg 24 hr tablet Take 1 tablet (30 mg total) by mouth daily. 07/07/2023 Active End: 02-13-2021 take 1 tablet by [...] Active levothyroxine sodium 0.125 mg oral tablet (17 sources) l-Thyrox ine Start: 12-03-2022 take 1 tablet by mouth in the morning levothyroxine (SYNTHROID) 125 MCG tablet Indications: Postoperative hypothyroidism Take 1 tablet (125 mcg total) by mouth in the morning. 30 tablet 1 12/03/2022 Active Start: 02-07-2021 take 1 tablet by denae th once daily levothyroxine (SYNTHROID) 100 MCG tablet Take 100 mcg by mouth daily 0 02/07/2021 Active lidocaine 0.05 mg/mg medicated patch (2 sources) Antiarrhythmic, Amide Local Anesthetic Start: 05-17-2024 apply [...] intranasally bilaterally 2 times daily 15 g 01/07/2022 Active nicotine 4 mg inhalation solution [...] mg oxyCODONE hydrochloride 5 mg oral tablet (3 sources) Opioid Agonist Start: 04-25-2019 take 5 mg by mouth every six hours Oxycodone Active 5 MG PO Q6H 30 April 25, 2019 rosuvastatin calcium 5 mg oral tablet (9 sources) HMG-CoA Reductase Inhibitor Start: 06-16-2024 take 1 tablet by mouth in the morning rosuvastatin (CRESTOR) 5 mg tablet Take 1 tablet (5 mg total) by mouth in the morning. 90 tablet 4 06/16/2024 Active Start: 10-16-2022 take 1 tablet by denae th once daily rosuvastatin (CRESTOR) 40 mg tablet Indications: Paroxysmal atrial fibrillation ([facility]) , Cerebrovascular accident (CVA), unspecified mechanism (CMS-HCC) , Atherosclerosis of [place] coronary artery of [place] heart without angina pectoris , Status post insertion of drug eluting coronary artery stent TAKE 1 TABLET BY MOUTH EVERY DAY 30 tablet 2 10/16/2022 Active sodium chloride 30 mg/ml inhalation solution (6 sources) Start: 05-05-2024 take 120 mL by inhalation once daily sodium chloride 3 % nebulizer solution Indications: Moderate COPD (chronic obstructive pulmonary disease) (CMS-HCC) , Bronchiectasis without complication ([facility]) Inhale by nebulization daily. 120 mL 12 05/05/2024 Active Start: 02-12-2021 sodium chlorid e flush 0.9 % injection 5-40 mL Start: 02-12-2021 0.9 % sodium c hloride infusion sotalol hydrochloride 120 mg oral tablet (3 sources) Antiarrhythmic Start: 04-23-2019 take 120 mg by mouth twice daily Sotalol Active 120 MG PO Twice daily 60 April 23, 2019 12:00am 10 actuat tiotropium 0.0025 mg/actuat inhalation spray (11 sources) Anticholinergic Start: 09-05-2021 take 2 puff(s) by inhalation once daily tiotropium bromide (SPIRIVA RESPIMAT) 2.5 mcg/actuation mist Indications: COPD without exacerbation ([facility]) Inhale 2 puffs daily. 4 g 10 09/05/2021 Active Start: 01-12-2019 End: 02-12-2021 take 1 capsule by inhalation once daily Tiotropium Ulysses (Spiriva With Handihaler) 18 mcg Capsule, W/Inhalation [...] Indications: Moderate COPD (chronic obstructive pulmonary disease) ([facility]) , Cough, persistent Inhale 4 mL by nebulization in the morning and 4 mL before bedtime. 240 mL 3 06/02/2023 01/07/2024 Discontinued gabapentin 100 mg oral capsule (3 sources) Anti-epileptic Agent Start: 04-18-2019 End: 04-18-2019 Gabapentin Discontinued April 18, 2019 12:00am April 18, 2019 8:41am metFORMIN hydrochloride 500 mg oral tablet (1 source) Biguanide End: 02-11-2021 take 1 tablet by mouth twice daily at mealtime metFORMIN (GLUCOPHAGE) 500 MG tablet Take 500 mg by mouth 2 times daily (with meals) 0 02/11/2021 Discontinued (LIST CLEANUP) predniSONE 20 mg oral tablet (5 sources) Start: 04-13-2024 End: 04-13-2024 take 3 [...] CLEANUP) traMADol hydrochloride 50 mg oral tablet (3 sources) Opioid Agonist Start: 01-12-2019 End: 04-25-2019 take 50 mg by mouth every six hours Tramadol Discontinued 50 MG PO Q6H January 12, 2019 12:00am April 25, 2019 12:34pm Problems Active Problems Problem Classification Problem Date Documented Date Episodic/Chronic Acute cerebrovascular disease (8 sources) Cerebrovascular accident; Translations: [Cerebral infarction, unspecified] Onset: 02-14-2021 02-14-2021 Chronic Cancer of bronchus; lung (15 sources) Malignant neoplasm of upper lobe, left bronchus or lung; Translations: [Adenocarcinoma of left lung] Onset: 05-26-2019 02-24-2024 Chronic Cardiac and circulatory congenital anomalies (9 sources) Pulmonary arteriovenous malformation; 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] Onset: 05-26-2019 05-26-2019 Chronic Cardiac dysrhythmias (11 sources) Paroxysmal atrial fibrillation; Translations: [Paroxysmal atrial fibrillation] Onset: 12-10-2018 05-07-2020 Chronic Chronic obstructive pulmonary disease and bronchiectasis (20 sources) Moderate chronic obstructive pulmonary disease; Translations: [Chronic obstructive pulmonary disease, unspecified] Onset: 09-23-2018 07-17-2022 Chronic Complications of surgical procedures or medical care (9 sources) Postoperative hypothyroidism; Translations: [Postprocedural hypothyroidism] Onset: 09-01-2022 09-01-2022 Chronic Coronary atherosclerosis and other heart disease (16 sources) New onset angina; Translations: [Angina pectoris, unspecified] Onset: 02-05-2021 1 Chronic Diabetes mellitus with complications (8 sources) Type 2 diabetes mellitus with peripheral angiopathy; Translations: [Type 2 diabetes mellitus with diabetic peripheral angiopathy without gangrene] Onset: 08-09-2020 09-19-2020 Chronic Diabetes mellitus without complication (4 sources) Diabetes mellitus; Translations: [Type 2 diabetes mellitus without complications] Onset: 01-25-2024 10-07-2023 Chronic Disorders of lipid metabolism (1 source) Mixed hyperlipidemia; Translations: [Mixed hyperlipidemia] Onset: 04-25-2024 04-25-2024 Chronic Esophageal disorders (2 sources) Gastro-esophageal reflux disease without esophagitis; Translations: [Gastroesophageal reflux disease without esophagitis] Onset: 04-26-2024 04-26-2024 Chronic Malaise and fatigue (2 sources) Other fatigue; Translations: [Weakness] Onset: 02-01-2024 Episodic Occlusion or stenosis of precerebral arteries (1 source) Bilateral stenosis of carotid arteries; Translations: [Occlusion and stenosis of bilateral carotid arteries] Onset: 06-16-2024 06-16-2024 Chronic Other aftercare (3 sources) Patient encounter status; Translations: [Encounter for palliative care] 03-07-2024 Episodic Other circulatory disease (1 source) Carotid bruit; Translations: [Other specified symptoms and signs involving the circulatory and respiratory systems] Onset: 05-26-2024 05-26-2024 Episodic Other ear and sense organ disorders (8 sources) Hearing loss; Translations: [Unspecified hearing loss, unspecified ear] Onset: 10-03-2021 10-03-2021 Chronic Other lower respiratory disease (1 source) Dyspnea on exertion; Translations: [Other forms of dyspnea] 01-07-2024 Episodic Other nervous system disorders (3 sources) Pain due to neoplastic disease; Translations: [Neoplasm related pain (acute) (chronic)] 03-07-2024 Chronic Other nutritional; endocrine; and metabolic disorders (8 sources) Qmyyz-3-inyyljgijvo deficiency; Translations: [Mppph-0-zxlfkmsbqoj deficiency] Onset: 08-09-2020 08-09-2020 Chronic Other nutritional; endocrine; and metabolic disorders (1 source) Hypocalcemia; Translations: [Hypocalcemia] Onset: 04-25-2024 Chronic Other nutritional; endocrine; and metabolic disorders (1 source) Uspcg-1-ugczojyghjm deficiency; Translations: [Nzpjl-7-rmnkrjzujcd deficiency] Onset: 08-09-2020 Chronic Other nutritional; endocrine; and metabolic disorders (1 source) Hypocalcemia; Translations: [Hypocalcemia] Onset: 04-25-2024 04-25-2024 Chronic Other screening for suspected conditions (not mental disorders or infectious disease) (10 sources) CT of chest abnormal; Translations: [Abnormal findings on diagnostic imaging of other specified body structures] Onset: 09-23-2018 Resolved: 07-28-2024 09-23-2018 Chronic Peripheral and visceral atherosclerosis (20 sources) Peripheral vascular disease, unspecified; Translations: [Peripheral vascular disease] Onset: 05-24-2019 Chronic Residual codes; unclassified (10 sources) Tobacco user; Translations: [Tobacco use] Onset: 09-23-2018 05-07-2020 Episodic Residual codes; unclassified (10 sources) Genetic disorder carrier; Translations: [Genetic carrier of other disease] Onset: 09-23-2018 Resolved: 03-03-2024 09-23-2018 Episodic Spondylosis; intervertebral disc disorders; other back problems (8 sources) Cervical spondylosis; Translations: [Spondylosis without myelopathy or radiculopathy, cervical region] Onset: 12-15-2018 12-15-2018 Chronic Substance-related disorders (1 source) Cigarette smoker ; Translations: [Nicotine dependence, cigarettes, uncomplicated] Onset: 06-16-2024 06-16-2024 Chronic Thyroid disorders (2 sources) Hypothyroidism, unspecified; Translations: [Hypothyroidism] Onset: 01-25-2024 04-25-2024 Chronic Unclassified (1 source) Subacute cough; Translations: [Subacute cough] Onset: 02-01-2024 Unclassified (1 source) Post-op Problem Onset: 02-01-2024 Unclassified (1 source) congestion, eye issue Onset: 10-19-2023 Unclassified (1 source) LANGULAR OBSTRUCTION AND CHRONIC COUGH Onset: 01-26-2024 Past or Other Problems Problem Classification Problem Date Documented Date Episodic/Chronic Alcohol-related disorders (8 sources) Alcohol intoxication; Translations: [Alcohol use, unspecified with intoxication, unspecified] Onset: 08-09-2020 08-09-2020 Episodic Cardiac dysrhythmias (1 source) Tachycardia, unspecified; Translations: [Tachycardia, unspecified] Onset: 10-19-2023 Episodic Fluid and electrolyte disorders (1 source) Hypokalemia; Translations: [Hypokalemia] Onset: 04-25-2024 04-25-2024 Episodic Fracture of upper limb (8 sources) Closed fracture proximal humerus, four part; Translations: [Other displaced fracture of upper end of left humerus, initial encounter for closed fracture] Onset: 09-14-2018 09-14-2018 Episodic Joint disorders and dislocations; trauma-related (8 sources) Dislocation of joint of upper limb; Translations: [Anterior dislocation of left humerus, initial encounter] Onset: 09-14-2018 09-14-2018 Episodic Mood disorders (8 sources) Mood disorders Onset: 06-05-2021 06-05-2021 Nonspecific chest pain (3 sources) Chest pain, unspecified; Translations: [Chest pain] Onset: 04-25-2024 04-25-2024 Episodic Other connective tissue disease (9 sources) Full thickness rotator cuff tear; Translations: [Complete rotator cuff tear or rupture of left shoulder, not specified as traumatic] Onset: 12-04-2015 12-04-2015 Episodic Other lower respiratory disease (8 sources) Nodule of lung; Translations: [Solitary pulmonary nodule] Onset: 05-26-2019 05-26-2019 Episodic Other lower respiratory disease (9 sources) Dyspnea; Translations: [Shortness of breath] Onset: 02-05-2021 02-05-2021 Episodic Other lower respiratory disease (3 sources) [...] conditions (not mental disorders or infectious disease) (11 sources) Cardiovascular stress test abnormal; Translations: [Abnormal result of other cardiovascular function study] Onset: 02-05-2021 Episodic Other upper respiratory disease (8 sources) Nasal vestibulitis; Translations: [Other specified disorders of nose and nasal sinuses] Onset: 01-07-2022 01-07-2022 Episodic Other upper respiratory infections (8 sources) Acute sinusitis; Translations: [Acute sinusitis, unspecified] Onset: 08-22-2021 Resolved: 09-05-2021 09-05-2021 Episodic Pathological fracture (8 sources) Pathological fracture of humerus due to osteoporosis; Translations: [Age-related osteoporosis with current pathological fracture, left humerus, initial encounter for fracture] Onset: 09-14-2018 09-14-2018 Episodic Residual codes; unclassified (1 source) Genetic carrier of other disease; Translations: [Genetic carrier of other disease] Onset: 03-03-2024 Episodic Residual codes; unclassified (1 source) Tobacco use; Translations: [Tobacco use] Onset: 05-07-2020 Episodic Spondylosis; intervertebral disc disorders; other back problems (8 sources) Neck pain; Translations: [Cervicalgia] Onset: 12-15-2018 12-15-2018 Episodic Results Test Name Value Interpretation Reference Range Facility Consultation/Specialist Note on 08-08-2024 Consultation/Specialist Note [id number] 7#1.00[facility] Rad - CT Reporton 07-20-2024 Rad - CT Report [id number] 6#2.00[facility] Consultation/Specialist Note on 07-12-2024 Consultation/Specialist Note [id number] 4#1.00[facility] Consultation/Specialist Note on 07-08-2024 Consultation/Specialist Note [id number]# 1.00[facility] Consultation/Specialist Note on 06-22-2024 Consultation/Specialist Note [id number] 6#1.00[facility] Consultation/Specialist Note [id number] 5#1.00[facility] Consultation/Specialist Note on 05-26-2024 Consultation/Specialist Note [id number] 59#1.00[facility] Consultation/Specialist Note on 05-19-2024 Consultation/Specialist Note [id number] #1.00[facility] Consultation/Specialist Note on 05-12-2024 Consultation/Specialist Note [id number] 8#1.00[facility] Consultation/Specialist Note [id number] 8#[address] CBC AND AUTO DIFFon 04-27-20 24 ABSOLUTE BASOPHIL 0.1 X10E9/L Normal 0.0-0.2 [facility] Comment on above: Performed By: #### C JORGE [facility], ####[facility] ([id number])[address] [place] [address] 12783 ABSOLUTE NEUTROPHIL 6.3 X10E9/L Normal 1.5-6.6 [facility] Comment on above: Performed By: #### C JORGE [facility], 62260-9 ####[facility] ([id number])[address] [place] [address] 21721 Basophils/100 WBC (Bld) 1.2 % Normal P [facility] Comment on above: Performed By: #### C JORGE [facility], ####[facility] ([id number])[address] [place] [address] 24854 Eosinophils (Bld) [#/Vol] 0.2 10*3/uL Normal 0.0-0.4 [facility] Comment on above: Performed By: #### C MOJGAN PATEL, ####[facility] ([id number])[address] [place] [address] 49516 Eosinophils/100 WBC (Bld) 2.8 % Normal [facility] Comment on above: Performed By: #### Neymar PATEL CMP, ####[facility] ([id number])[address] [place] [address] 67499 Erythrocyte distribution width (RBC) [Ratio] 15.1 % High 11.5-15.0 [facility] Comment on above: Performed By: #### Neymar PATEL CMP, ####[facility] ([id number])[address] [place] [address] 68848 Hematocrit (Bld) [Volume fraction] 37.9 % Normal 35-47 [facility] Comment on above: Performed By: #### Neymar PATEL [facility], ####[facility] ([id number])[address] [place] [address] 53184 Hemoglobin (Bld) [Mass/Vol] 13.0 g/dL Normal 11.7-15.5 [facility] Comment on above: Performed By: #### Neymar PATEL CMP, ####[facility] ([id number])[address] [place] [address] 50861 Lymphocytes (Bld) [#/Vol] 0.8 10*3/uL Low 1.0-3.5 [facility] Comment on above: Performed By: #### Neymar PATEL CMP, ####[facility] ([id number])[address] [place] [address] 52187 Lymphocytes/100 WBC (Bld) 10.3 % Normal [facility] Comment on above: Performed By: #### Neymar PATEL CMP, ####[facility] ([id number])[address] [place] [address] 73026 MCH (RBC) [Entitic mass] 31.0 pg Normal 27-34 [facility] Comment on above: Performed By: #### Neymar PATEL CMP, ####[facility] ([id number])[address] [place] [address] 86355 MCHC (RBC) [Mass/Vol] 34.4 g/dL Normal 32-36 [facility] Comment on above: Performed By: #### Neymar PATEL CMP, ####[facility] ([id number])[address] [place] [address] 84954 MCV (RBC) [Entitic vol] 90 fL Normal 80-100 [facility] Comment on above: Performed By: #### Neymar PATEL CMP, ####[facility] ([id number])[address] [place] [address] 09980 Monocytes (Bld) [#/Vol] 0.7 10*3/uL Normal 0-0.9 [facility] Comment on above: Performed By: #### Neymar PATEL CMP, ####[facility] ([id number])[address] [place] [address] 44931 Monocytes/100 WBC (Bld) 8.4 % Normal [facility] Comment on above: Performed By: #### Neymar PATEL, CMP, ####[facility] ([id number])[address] [place] [address] 39865 Neutrophils/100 WBC (Bld) 77.3 % Normal [facility] Comment on above: Performed By: #### Neymar PATEL, CMP, ####[facility] ([id number])[address] [place] [address] 99979 Platelet mean volume (Bld) [Entitic vol] 8.4 fL Normal 7-12 [facility] Comment on above: Performed By: #### C JORGE CMP, 59527-0 ####[facility] ([id number])[address] [place] [address] 03633 Platelets (Bld) [#/Vol] 171 10*3/uL Normal 150-450 [facility] Comment on above: Performed By: #### Neymar PATEL CMP, 13171-5 ####[facility] ([id number])[address] [place] [address] 03410 RBC COUNT 4.21 X10E12/L Normal 3.80-5.20 [facility] Comment on above: Performed By: #### Neymar PATEL CMP, 50328-5 ####[facility] ([id number])[address] [place] [address] 79603 WBC (Bld) [#/Vol] 8.1 10*3/uL Normal 4.0-11.0 [facility] Comment on above: Performed By: #### Neymar PATEL CMP, 18931-1 ####[facility] ([id number])[address] [place] [address] 98031 COMPREHENSIVE METABOLIC PANE Kemal 04-27-2024 Albumin [Mass/Vol] 3.0 g/dL Low 3.2-5.3 [facility] Comment on above: Performed By: #### C JORGE CMP, 92696-7 ####[facility] ([id number])[address] [place] [address] 84212 ALP [Catalytic activity/Vol] 43 U/L Normal 39-130 [facility] Comment on above: Performed By: #### C BCA, CMP, 92559-2 ####[facility] ([id number])[address] [place] [address] 64100 ALT [Catalytic activity/Vol] 27 U/L Normal 0-31 [facility] Comment on above: Performed By: #### C BCA, CMP, 88710-0 ####[facility] ([id number])[address] [place] [address] 17135 Anion gap [Moles/Vol] 7 mmol/L Normal 5-15 [facility] Comment on above: Performed By: #### C BCA, CMP, ####[facility] ([id number])[address] [place] [address] [place] [address] AST [Catalytic activity/Vol] 15 U/L Normal 0-41 [facility] Comment on above: Performed By: #### C BCA, CMP, ####[facility] ([id number])[address] [place] [address] 19820 Bilirubin [Mass/Vol] 0.9 mg/dL Normal 0.3-1.2 [facility] Comment on above: Performed By: #### C BCA, CMP, ####[facility] ([id number])[address] [place] [address] 93388 Calcium [Mass/Vol] 7.5 mg/dL Low 8.5-10.5 [facility] Comment on above: Performed By: #### C BCA, CMP, ####[facility] ([id number])[address] [place] [address] [place] [address] Chloride [Moles/Vol] 97 mmol/L Low 98-109 [facility] Comment on above: Performed By: #### C BCA, CMP, ####[facility] ([id number])[address] [place] [address] 01265 CO2 [Moles/Vol] 29 mmol/L Normal 22-32 [facility] Comment on above: Performed By: #### C BCA, CMP, ####[facility] ([id number])[address] [place] [address] 63727 Creatinine [Mass/Vol] 0.88 mg/dL Normal 0.40-1.00 [facility] Comment on above: Result Comment: METH OD TRACEABLE TO IDMS STANDARD Performed By: #### C MOJGAN PATEL, ####[facility] ([id number])[address] [place] [address] 97583 GFR/1.73 sq M.predicted among non-blacks MDRD (S/P/Bld) [Vol rate/Area] 70 mL/min/{1.73_m2} Normal >59 [facility] Comment on above: Result Comment: Reported eGFR is based on the CKD-EPI 2020 equation that does not use a race coefficient. Performed By: #### C MOJGAN PATEL, ####[facility] ([id number])[address] [place] [address] 33831 Glucose [Mass/Vol] 104 mg/dL High 65-99 [facility] Comment on above: Performed By: #### C MOJGAN PATEL, ####[facility] ([id number])[address] [place] [address] 65859 Potassium [Moles/Vol] 3.1 mmol/L Low 3.5-5.0 [facility] Comment on above: Performed By: #### C MOJGAN PATEL, ####[facility] ([id number])[address] [place] [address] 37740 Protein [Mass/Vol] 5.9 g/dL Low 6.0-8.0 [facility] Comment on above: Performed By: #### C MOJGAN PATEL, ####[facility] ([id number])[address] [place] [address] 43475 Sodium [Moles/Vol] 133 mmol/L Low 134-146 [facility] Comment on above: Performed By: #### C MOJGAN PATEL, 52327-0 ####[facility] ([id number])[address] [place] [address] 70599 Urea nitrogen [Mass/Vol] 20 mg/dL Normal 5-27 [facility] Comment on above: Performed By: #### C MOJGAN PATEL, 78123-8 ####[facility] ([id number])[address] [place] [address] 34824 Glucose Glucometer (BldC) [M ass/Vol]on 04-27-2024 Glucose [Mass/Vol] 325 mg/dL High 65-99 [facility] MAGNESIUMon 04-27-2024 Magnesium [Mass/Vol] 2.2 mg/dL Normal 1.8-2.6 [facility] Comment on above: Performed By: #### C MOJGAN PATEL, 28873-0 ####[facility] ([id number])[address] [place] [address] 75225 CBC AND AUTO DIFFon 04-26-20 24 ABSOLUTE BASOPHIL 0.0 X10E9/L Normal 0.0-0.2 [facility] Comment on above: Performed By: #### C OVFLR #### [facility] ([id number]) [address] [place] [address] 35964 ABSOLUTE NEUTROPHIL 10.7 X10E9/L High 1.5-6.6 [facility] Comment on above: Performed By: #### C OVFLR #### [facility] ([id number]) [address] [place] [address] 85621 Basophils/100 WBC (Bld) 0.3 % Normal P [facility] Comment on above: Performed By: #### C OVFLR #### [facility] ([id number]) [address] [place] [address] 46959 Eosinophils (Bld) [#/Vol] 0.1 10*3/uL Normal 0.0-0.4 [facility] Comment on above: Performed By: #### C OVFLR #### [facility] ([id number]) [address] [place] [address] 93140 Eosinophils/100 WBC (Bld) 0.7 % Normal [facility] Comment on above: Performed By: #### C OVFLR #### [facility] ([id number]) [address] [place] [address] 36889 Erythrocyte distribution width (RBC) [Ratio] 14.8 % Normal 11.5-15.0 [facility] Comment on above: Performed By: #### C OVFLR #### [facility] ([id number]) [address] [place] [address] 99398 Hematocrit (Bld) [Volume fraction] 41.2 % Normal 35-47 [facility] Comment on above: Performed By: #### C OVFLR #### [facility] ([id number]) [address] [place] [address] 06465 Hemoglobin (Bld) [Mass/Vol] 14.0 g/dL Normal 11.7-15.5 [facility] Comment on above: Performed By: #### C OVFLR #### [facility] ([id number]) [address] [place] [address] 89245 Lymphocytes (Bld) [#/Vol] 0.5 10*3/uL Low 1.0-3.5 [facility] Comment on above: Performed By: #### C OVFLR #### [facility] ([id number]) [address] [place] [address] 00461 Lymphocytes/100 WBC (Bld) 4.4 % Normal [facility] Comment on above: Performed By: #### C OVFLR #### [facility] ([id number]) [address] [place] [address] 07307 MCH (RBC) [Entitic mass] 30.9 pg Normal 27-34 [facility] Comment on above: Performed By: #### C OVFLR #### [facility] ([id number]) [address] [place] [address] 81055 MCHC (RBC) [Mass/Vol] 33.9 g/dL Normal 32-36 [facility] Comment on above: Performed By: #### C OVFLR #### [facility] ([id number]) [address] [place] [address] 96870 MCV (RBC) [Entitic vol] 91 fL Normal 80-100 [facility] Comment on above: Performed By: #### C OVFLR #### [facility] ([id number]) [address] [place] [address] 02762 Monocytes (Bld) [#/Vol] 1.0 10*3/uL High 0-0.9 [facility] Comment on above: Performed By: #### C OVFLR #### [facility] ([id number]) [address] [place] [address] 01861 Monocytes/100 WBC (Bld) 7.8 % Normal [facility] Comment on above: Performed By: #### C OVFLR #### [facility] ([id number]) [address] [place] [address] 03228 Neutrophils/100 WBC (Bld) 86.8 % Normal [facility] Comment on above: Performed By: #### C OVFLR #### [facility] ([id number]) [address] [place] [address] 83155 Platelet mean volume (Bld) [Entitic vol] 8.3 fL Normal 7-12 [facility] Comment on above: Performed By: #### C OVFLR #### [facility] ([id number]) [address] [place] [address] 73291 Platelets (Bld) [#/Vol] 168 10*3/uL Normal 150-450 [facility] Comment on above: Performed By: #### C OVFLR #### [facility] ([id number]) [address] [place] [address] 50847 RBC COUNT 4.52 X10E12/L Normal 3.80-5.20 [facility] Comment on above: Performed By: #### C OVFLR #### [facility] ([id number]) [address] [place] [address] 59339 WBC (Bld) [#/Vol] 12.3 10*3/uL High 4.0-11.0 [facility] Comment on above: Performed By: #### C OVFLR #### [facility] ([id number]) [address] [place] [address] 80209 COMPREHENSIVE METABOLIC PANE Kemal 04-26-2024 Albumin [Mass/Vol] 3.1 g/dL Low 3.2-5.3 [facility] Comment on above: Performed By: #### C OVFLR #### [facility] ([id number]) [address] [place] [address] 34744 ALP [Catalytic activity/Vol] 43 U/L Normal 39-130 [facility] Comment on above: Performed By: #### C OVFLR #### [facility] ([id number]) [address] [place] [address] 40869 ALT [Catalytic activity/Vol] 36 U/L High 0-31 [facility] Comment on above: Result Comment: SPEC IMEN HEMOLYZED, RESULTS INCREASED Performed By: #### C OVFLR #### [facility] ([id number]) [address] [place] [address] 92414 Anion gap [Moles/Vol] 10 mmol/L Normal 5-15 [facility] Comment on above: Performed By: #### C OVFLR #### [facility] ([id number]) [address] [place] [address] 69159 AST [Catalytic activity/Vol] 21 U/L Normal 0-41 [facility] Comment on above: Result Comment: SPEC IMEN HEMOLYZED, RESULTS INCREASED Performed By: #### C OVFLR #### [facility] ([id number]) [address] [place] [address] 29400 Bilirubin [Mass/Vol] 1.7 mg/dL High 0.3-1.2 [facility] Comment on above: Result Comment: RESU LTS QUESTIONABLE DUE TO HEMOLYSIS Performed By: #### C OVFLR #### [facility] ([id number]) [address] [place] [address] 56183 Calcium [Mass/Vol] 7.2 mg/dL Low 8.5-10.5 [facility] Comment on above: Performed By: #### C OVFLR #### [facility] ([id number]) [address] [place] [address] 32714 Chloride [Moles/Vol] 96 mmol/L Low 98-109 [facility] Comment on above: Performed By: #### C OVFLR #### [facility] ([id number]) [address] [place] [address] 79731 CO2 [Moles/Vol] 29 mmol/L Normal 22-32 [facility] Comment on above: Performed By: #### C OVFLR #### [facility] ([id number]) [address] [place] [address] 38869 Creatinine [Mass/Vol] 0.88 mg/dL Normal 0.40-1.00 [facility] Comment on above: Result Comment: METH OD TRACEABLE TO IDMS STANDARD Performed By: #### C OVFLR #### [facility] ([id number]) [address] [place] [address] 78808 GFR/1.73 sq M.predicted among non-blacks MDRD (S/P/Bld) [Vol rate/Area] 70 mL/min/{1.73_m2} Normal >59 [facility] Comment on above: Result Comment: Reported eGFR is based on the CKD-EPI 2020 equation that does not use a race coefficient. Performed By: #### C OVFLR #### [facility] ([id number]) [address] [place] [address] 44674 Glucose [Mass/Vol] 134 mg/dL High 65-99 [facility] Comment on above: Performed By: #### C OVFLR #### [facility] ([id number]) [address] [place] [address] 57984 Potassium [Moles/Vol] 3.8 mmol/L Normal 3.5-5.0 [facility] Comment on above: Result Comment: SPEC IMEN HEMOLYZED, RESULTS INCREASED Performed By: #### C OVFLR #### [facility] ([id number]) [address] [place] [address] 51250 Protein [Mass/Vol] 5.9 g/dL Low 6.0-8.0 [facility] Comment on above: Performed By: #### C OVFLR #### [facility] ([id number]) [address] [place] [address] 40741 Sodium [Moles/Vol] 135 mmol/L Normal 134-146 [facility] Comment on above: Performed By: #### C OVFLR #### [facility] ([id number]) [address] [place] [address] 55011 Urea nitrogen [Mass/Vol] 16 mg/dL Normal 5-27 [facility] Comment on above: Performed By: #### C OVFLR #### [facility] ([id number]) [address] [place] [address] 46576 Glucose Glucometer (BldC) [M ass/Vol]on 04-26-2024 Glucose [Mass/Vol] 118 mg/dL High 65-99 [facility] Glucose [Mass/Vol] 367 mg/dL High 65-99 [facility] BEDSIDE GLUCOSE LAB >500 Critically high 65-99 [facility] Comment on above: Result Comment: SEE LAB RESULTS FOR CONFIRMATION Glucose [Mass/Vol] 230 mg/dL High 65-99 [facility] Glucose [Mass/Vol] 106 mg/dL High 65-99 [facility] LIPASEon 04-26-2024 Lipase [Catalytic activity/Vol] 100 U/L High 17-40 [facility] Comment on above: Performed By: #### C OVFLR #### [facility] ([id number]) [address] [place] [address] 30280 Lactate (P dannie) [Moles/Vol]o n 04-26-2024 LACTATE W/REFLEX 1.7 mmol/L Normal 0.4-2.[address] [facility] Comment on above: Result Comment: Result did not trigger repeat Lactate, re-order if needed. Performed By: #### 3 2133-1 ####[facility] ([id number])[address] [place] [address] 34778 MAGNESIUMon 04-26-2024 Magnesium [Mass/Vol] 1.9 mg/dL Normal 1.8-2.6 [facility] Comment on above: Result Comment: SPEC IMEN HEMOLYZED, RESULTS INCREASED Performed By: #### C OVFLR #### [facility] ([id number]) [address] [place] [address] 64844 Troponin I.cardiac High sens itivity method [Mass/Vol]on 04-26-2024 1 HOUR TROP I, HIGH SENSITIVITY 10 ng/L Normal <16 [facility] Comment on above: Performed By: #### C OVFLR #### [facility] ([id number]) [address] [place] [address] 97499 TROPONIN I, HIGH SENSITIVITY 9 ng/L Normal <16 [facility] Comment on above: Performed By: #### C OVFLR #### [facility] ([id number]) [address] [place] [address] 61862 ACUTE HEPATITIS PANELon 07-0 ANTI HCV W/PCR REFLX Non-Reactive Normal NRCT Pr [facility] Comment on above: Result Comment: If recent infection suspected, recommend repeat testing (>2 months). Ersmpy-jq-ffemut ratio is <0.80. Performed By: #### C BCA, 19719-2, BMP, 63627-0, 15909-4 #### [facility] ([id number]) [address] [place] [address] 72648 HEPATITIS A IGM Non-Reactive Normal NRCT [facility] Comment on above: Performed By: #### C BCA, 41435-4, BMP, 76688-2, 16495-7 #### [facility] ([id number]) [address] [place] [address] 80647 HEPATITIS B CORE IGM Negative Normal NEG [facility] Comment on above: Performed By: #### C BCA, 45152-9, BMP, 28037-0, 47597-6 #### [facility] ([id number]) [address] [place] [address] 49059 HEPATITIS B SURF AG Negative Normal NEG [facility] Comment on above: Performed By: #### C BCA, 60688-2, BMP, 79673-8, 64683-6 #### [facility] ([id number]) [address] [place] [address] 80110 CBC AND AUTO DIFFon 04-25-20 24 ABSOLUTE BASOPHIL 0.1 X10E9/L Normal 0.0-0.2 [facility] Comment on above: Performed By: #### C BCA, 78359-1, BMP, 19822-6, 58118-4 #### [facility] ([id number]) [address] [place] [address] 92905 ABSOLUTE NEUTROPHIL 12.8 X10E9/L High 1.5-6.6 [facility] Comment on above: Performed By: #### Neymar PATEL, 71589-1, BMP, 15492-7, 21623-6 #### [facility] ([id number]) [address] [place] [address] 38926 Basophils/100 WBC (Bld) 0.7 % Normal [facility] Comment on above: Performed By: #### Neymar PATEL, 86722-2, BMP, 66976-7, 13071-1 #### [facility] ([id number]) [address] [place] [address] 45681 Eosinophils (Bld) [#/Vol] 0.2 10*3/uL Normal 0.0-0.4 [facility] Comment on above: Performed By: #### Neymar PATEL, 60381-7, BMP, 61605-1, 58024-3 #### [facility] ([id number]) [address] [place] [address] 61157 Eosinophils/100 WBC (Bld) 1.3 % Normal [facility] Comment on above: Performed By: #### Neymar PATEL, 52795-0, BMP, 98851-0, 90640-5 #### [facility] ([id number]) [address] [place] [address] 33906 Erythrocyte distribution width (RBC) [Ratio] 14.9 % Normal 11.5-15.0 [facility] Comment on above: Performed By: #### Neymar PATEL, 88594-5, BMP, 89935-2, 92942-1 #### [facility] ([id number]) [address] [place] [address] 18502 Hematocrit (Bld) [Volume fraction] 45.4 % Normal 35-47 [facility] Comment on above: Performed By: #### Neymar BCA, 25677-7, BMP, 27649-5, 74694-7 #### [facility] ([id number]) [address] [place] [address] 64884 Hemoglobin (Bld) [Mass/Vol] 15.7 g/dL High 11.7-15.5 [facility] Comment on above: Performed By: #### Neymar BCA, 93225-2, BMP, 10699-8, 16062-8 #### [facility] ([id number]) [address] [place] [address] 76672 Lymphocytes (Bld) [#/Vol] 0.9 10*3/uL Low 1.0-3.5 [facility] Comment on above: Performed By: #### Neymar PATEL, 88593-5, BMP, 55291-9, 70023-3 #### [facility] ([id number]) [address] [place] [address] 90987 Lymphocytes/100 WBC (Bld) 6.2 % Normal [facility] Comment on above: Performed By: #### Neymar PATEL, 20623-8, BMP, 12077-7, 21748-0 #### [facility] ([id number]) [address] [place] [address] 99715 MCH (RBC) [Entitic mass] 30.8 pg Normal 27-34 [facility] Comment on above: Performed By: #### Neymar BCA, 08978-7, BMP, 18682-7, 49532-7 #### [facility] ([id number]) [address] [place] [address] 94536 MCHC (RBC) [Mass/Vol] 34.6 g/dL Normal 32-36 [facility] Comment on above: Performed By: #### Neymar PATEL, 53573-9, BMP, 60433-4, 88620-4 #### [facility] ([id number]) [address] [place] [address] 39814 MCV (RBC) [Entitic vol] 89 fL Normal 80-100 [facility] Comment on above: Performed By: #### Neymar PATEL, 90326-2, BMP, 04654-2, 80360-6 #### [facility] ([id number]) [address] [place] [address] 16130 Monocytes (Bld) [#/Vol] 0.6 10*3/uL Normal 0-0.9 [facility] Comment on above: Performed By: #### Neymar PATEL, 16239-7, BMP, 61027-3, 02089-3 #### [facility] ([id number]) [address] [place] [address] 98198 Monocytes/100 WBC (Bld) 4.3 % Normal [facility] Comment on above: Performed By: #### Neymar PATEL, 03211-0, BMP, 65310-2, 05511-0 #### [facility] ([id number]) [address] [place] [address] 06347 Neutrophils/100 WBC (Bld) 87.5 % Normal [facility] Comment on above: Performed By: #### Neymar PATEL, 84515-5, BMP, 23327-4, 43439-6 #### [facility] ([id number]) [address] [place] [address] 67862 Platelet mean volume (Bld) [Entitic vol] 7.8 fL Normal 7-12 [facility] Comment on above: Performed By: #### Neymar PATEL, 67032-8, BMP, 61562-8, 07140-7 #### [facility] ([id number]) [address] [place] [address] 23654 Platelets (Bld) [#/Vol] 203 10*3/uL Normal 150-450 [facility] Comment on above: Performed By: #### C BCA, 05368-3, BMP, 57504-4, 64594-5 #### [facility] ([id number]) [address] [place] [address] 17677 RBC COUNT 5.11 X10E12/L Normal 3.80-5.20 [facility] Comment on above: Performed By: #### C BCA, 91699-6, BMP, 52824-1, 30609-3 #### [facility] ([id number]) [address] [place] [address] 77268 WBC (Bld) [#/Vol] 14.7 10*3/uL High 4.0-11.0 [facility] Comment on above: Performed By: #### C BCA, 07272-2, BMP, 23428-9, 32105-3 #### [facility] ([id number]) [address] [place] [address] 25824 COMPREHENSIVE METABOLIC PANE [facility] 04-25-2024 Albumin [Mass/Vol] 3.6 g/dL Normal 3.2-5.3 [facility] Comment on above: Performed By: #### C BCA, 22218-8, BMP, 95632-9, 13168-5 #### [facility] ([id number]) [address] [place] [address] 92292 ALP [Catalytic activity/Vol] 56 U/L Normal 39-130 [facility] Comment on above: Performed By: #### C BCA, 59902-1, BMP, 33194-3, 39376-7 #### [facility] ([id number]) [address] [place] [address] 58809 ALT [Catalytic activity/Vol] 62 U/L High 0-31 [facility] Comment on above: Performed By: #### C BCA, 81788-8, BMP, 18769-3, 04079-1 #### [facility] ([id number]) [address] [place] [address] 44536 Anion gap [Moles/Vol] 8 mmol/L Normal 5-15 [facility] Comment on above: Performed By: #### C BCA, 39843-7, BMP, 45359-0, 52053-4 #### [facility] ([id number]) [address] [place] [address] 51170 AST [Catalytic activity/Vol] 38 U/L Normal 0-41 [facility] Comment on above: Performed By: #### C BCA, 91870-5, BMP, 44915-9, 24193-7 #### [facility] ([id number]) [address] [place] [address] 04770 Bilirubin [Mass/Vol] 0.5 mg/dL Normal 0.3-1.2 [facility] Comment on above: Performed By: #### Neymar BCA, 91072-3, BMP, 07903-9, 31452-5 #### [facility] ([id number]) [address] [place] [address] 91972 Calcium [Mass/Vol] 6.5 mg/dL Critically low 8.5-10.5 [facility] Comment on above: Performed By: #### Neymar BCA, 59853-1, BMP, 03956-2, 38828-7 #### [facility] ([id number]) [address] [place] [address] 03285 Chloride [Moles/Vol] 102 mmol/L Normal 98-109 [facility] Comment on above: Performed By: #### C BCA, 08610-3, BMP, 36330-8, 08214-9 #### [facility] ([id number]) [address] [place] [address] 27909 CO2 [Moles/Vol] 29 mmol/L Normal 22-32 [facility] Comment on above: Performed By: #### Neymar BCA, 21311-4, BMP, 15109-5, 83649-2 #### [facility] ([id number]) [address] [place] [address] 35893 Creatinine [Mass/Vol] 1.05 mg/dL High 0.40-1.00 [facility] Comment on above: Result Comment: METH OD TRACEABLE TO IDMS STANDARD Performed By: #### C BCA, 42843-7, BMP, 92734-0, 25136-1 #### [facility] ([id number]) [address] [place] [address] 31809 GFR/1.73 sq M.predicted among non-blacks MDRD (S/P/Bld) [Vol rate/Area] 57 mL/min/{1.73_m2} Low >59 [facility] Comment on above: Result Comment: Reported eGFR is based on the CKD-EPI 2020 equation that does not use a race coefficient. Performed By: #### C BCA, 67880-9, BMP, 86510-0, 92727-6 #### [facility] ([id number]) [address] [place] [address] 02515 Glucose [Mass/Vol] 147 mg/dL High 65-99 [facility] Comment on above: Performed By: #### C BCA, 20160-8, BMP, 82902-3, 10534-5 #### [facility] ([id number]) [address] [place] [address] 30897 Potassium [Moles/Vol] 3.3 mmol/L Low 3.5-5.0 [facility] Comment on above: Performed By: #### C BCA, 93385-0, BMP, 72727-3, 65942-0 #### [facility] ([id number]) [address] [place] [address] 08185 Protein [Mass/Vol] 6.6 g/dL Normal 6.0-8.0 [facility] Comment on above: Performed By: #### C BCA, 35401-4, BMP, 71260-5, 23696-5 #### [facility] ([id number]) [address] [place] [address] Sodium [Moles/Vol] 139 mmol/L Normal 134-146 [facility] Comment on above: Performed By: #### C BCA, 41679-1, BMP, 51069-9, 47434-6 #### [facility] ([id number]) [address] [place] [address] Urea nitrogen [Mass/Vol] 22 mg/dL Normal 5-27 [facility] Comment on above: Performed By: #### C BCA, 79151-9, BMP, 61370-8, 05299-9 #### [facility] ([id number]) [address] [place] [address] CT CTA ABD AND PELVISon 07-0 CT CTA ABD AND PELVIS CT CTA [...] Chapman MD on 04/25/2024 10:10 AM Normal [facility] CT CTA CHESTon 04-25-2024 CT CTA CHEST [...] Gaytan MD on 04/25/2024 9:54 AM Normal [facility] Glucose Glucometer (BldC) [M ass/Vol]on 04-25-2024 Glucose [Mass/Vol] 162 mg/dL High 65-99 [facility] LIPASEon 04-25-2024 Lipase [Catalytic activity/Vol] 54 U/L High 17-40 [facility] Comment on above: Performed By: #### Neymar PATEL, 46325-5, DMITRY, 92883-9, 70167-5 #### [facility] ([id number]) [address] [place] [address] 83936 MAGNESIUMon 04-25-2024 Magnesium [Mass/Vol] 1.9 mg/dL Normal 1.8-2.6 [facility] Comment on above: Performed By: #### Neymar PATEL, 44989-7, DMITRY, 09907-6, 05378-6 #### [facility] ([id number]) [address] [place] [address] 03763 Natriuretic peptide B [Mass/ Vol]on 04-25-2024 Natriuretic peptide B (Bld) [Mass/Vol] 47 pg/mL Normal <100.0 [facility] Comment on above: Performed By: #### Neymar PATEL, 81102-4, DMITRY, 52616-6, 55895-3 #### [facility] ([id number]) [address] [place] [address] 34681 PROTIME AND INRon 04-25-2024 INR Coag (PPP) [Relative time] 1.0 {INR} Normal 0.8-1.1 [facility] Comment on above: Performed By: #### Neymar PATEL, 63571-2, DMITRY, 46612-0, 84357-5 #### [facility] ([id number]) [address] [place] [address] 33241 PT Coag (PPP) [Time] 11.9 s Normal 9.8-13.2 [facility] Comment on above: Result Comment: NEW REFERENCE RANGE Performed By: #### Neymar PATEL, 17773-3, BMP, 44277-1, 29664-7 #### [facility] ([id number]) [address] [place] [address] 41821 Procalcitonin IA [Mass/Vol]o n 04-25-2024 PROCALCITONIN 0.08 ng/mL High <0.05 [facility] Comment on above: Result Comment: NOTE <0.50 ng/mL - Low risk of severe sepsis and/or septic shock. <2.00 ng/mL - Recommend retesting within 6-24 hours. >2.00 ng/mL - High risk of sepsis and/or septic shock. Performed By: #### C JORGE, 54342-8, [facility], 41746-5, 21910-0 #### [facility] ([id number]) [address] [place] [address] 52989 Troponin I.cardiac High sens itivity method [Mass/Vol]on 04-25-2024 1 HOUR TROP I, HIGH SENSITIVITY 10 ng/L Normal <16 [facility] Comment on above: Performed By: #### C OVFLR #### [facility] ([id number]) [address] [place] [address] 95835 TROPONIN I, HIGH SENSITIVITY 11 ng/L Normal <16 [facility] Comment on above: Performed By: #### C JORGE, 16620-4, [facility], 42510-6, 58689-0 #### [facility] ([id number]) [address] [place] [address] 97240 Vitamin D+Metabolites [Mass/ Vol]on 04-25-2024 VITAMIN D 25 HYD TOT 23.3 ng/mL Low 30-100 [facility] Comment on above: Result Comment: Vitamin D status 25 [place] Vitamin D Deficiency <20 ng/mL Insufficiency 20-29 ng/mL Sufficiency 30-100 ng/mL Toxicity >100 ng/mL NOTE: A pediatric reference range has not been established by the java j2ee software engineer of this kit. The [place] [employer] recommends a Vitamin D level of = or >20ng/mL in infants and children. Performed By: #### C JORGE, 76808-6, BMP, 60441-6, 69049-5 #### [facility] ([id number]) [address] [place] [address] aPTT Coag (PPP) [Time]on aPTT Coag (Bld) [Time] 26 s Normal 26-37 Pr [facility] Comment on above: Result Comment: NEW REFERENCE RANGE Performed By: #### C JORGE, 24026-4, [facility], 97202-7, 93353-6 #### [facility] ([id number]) [address] [place] [address] Outside Recordson 04-21-2024 Outside Records [id number] #1.00OT[facility]IFF [facility] Outside Records [id number] [facility] [place] [facility] on 04-20-2024 [...] Granger MD on 04/20/2024 3:12 PM Normal [facility] CBC AND AUTO DIFFon 06-24-20 24 ABSOLUTE BASOPHIL 0.1 X10E9/L Normal 0.0-0.2 [facility] Comment on above: Performed By: #### Neymar PATEL, 28487-9, BMP, 38868-0, 74874-1 #### [facility] ([id number]) [address] [place] [address] 62634 ABSOLUTE NEUTROPHIL 7.4 X10E9/L High 1.5-6.6 [facility] Comment on above: Performed By: #### Neymar PATEL, 72970-2, BMP, 29945-2, 44788-5 #### [facility] ([id number]) [address] [place] [address] 31453 Basophils/100 WBC (Bld) 0.7 % Normal [facility] Comment on above: Performed By: #### Neymar PATEL, 00962-7, BMP, 66670-7, 95365-4 #### [facility] ([id number]) [address] [place] [address] 71759 Eosinophils (Bld) [#/Vol] 0.0 10*3/uL Normal 0.0-0.4 [facility] Comment on above: Performed By: #### Neymra PATEL, 08803-6, BMP, 85576-9, 41669-8 #### [facility] ([id number]) [address] [place] [address] 15494 Eosinophils/100 WBC (Bld) 0.1 % Normal [facility] Comment on above: Performed By: #### Neymar PATEL, 10955-6, BMP, 16908-4, 69950-3 #### [facility] ([id number]) [address] [place] [address] 49798 Erythrocyte distribution width (RBC) [Ratio] 14.9 % Normal 11.5-15.0 [facility] Comment on above: Performed By: #### Neymar PATEL, 52266-2, BMP, 61333-2, 47631-6 #### [facility] ([id number]) [address] [place] [address] 84335 Hematocrit (Bld) [Volume fraction] 40.3 % Normal 35-47 [facility] Comment on above: Performed By: #### Neymar PATEL, 06937-6, BMP, 16720-6, 57191-4 #### [facility] ([id number]) [address] [place] [address] 00820 Hemoglobin (Bld) [Mass/Vol] 13.5 g/dL Normal 11.7-15.5 [facility] Comment on above: Performed By: #### Neymar PATEL, 07063-1, BMP, 24276-5, 52702-1 #### [facility] ([id number]) [address] [place] [address] 56464 Lymphocytes (Bld) [#/Vol] 0.6 10*3/uL Low 1.0-3.5 [facility] Comment on above: Performed By: #### Neymar PATEL, 23015-7, BMP, 79995-4, 97583-2 #### [facility] ([id number]) [address] [place] [address] 61609 Lymphocytes/100 WBC (Bld) 6.9 % Normal [facility] Comment on above: Performed By: #### Neymar PATEL, 43221-1, BMP, 32448-2, 42734-5 #### [facility] ([id number]) [address] [place] [address] 67258 MCH (RBC) [Entitic mass] 30.5 pg Normal 27-34 [facility] Comment on above: Performed By: #### Neymar PATEL, 61412-2, BMP, 35698-9, 63546-5 #### [facility] ([id number]) [address] [place] [address] 56762 MCHC (RBC) [Mass/Vol] 33.6 g/dL Normal 32-36 [facility] Comment on above: Performed By: #### Neymar PATEL, 16770-4, BMP, 58348-4, 16595-7 #### [facility] ([id number]) [address] [place] [address] 40857 MCV (RBC) [Entitic vol] 91 fL Normal 80-100 [facility] Comment on above: Performed By: #### Neymar PATEL, 16666-6, BMP, 30978-1, 00808-1 #### [facility] ([id number]) [address] [place] [address] 30955 Monocytes (Bld) [#/Vol] 0.1 10*3/uL Normal 0-0.9 [facility] Comment on above: Performed By: #### Neymar PATEL, 29068-5, BMP, 27389-7, 05571-6 #### [facility] ([id number]) [address] [place] [address] 66325 Monocytes/100 WBC (Bld) 1.6 % Normal [facility] Comment on above: Performed By: #### Neymar PATEL, 12550-4, BMP, 02298-1, 56447-8 #### [facility] ([id number]) [address] [place] [address] 74917 Neutrophils/100 WBC (Bld) 90.7 % Normal [facility] Comment on above: Performed By: #### Neymar PATEL, 16452-4, BMP, 50247-0, 00975-7 #### [facility] ([id number]) [address] [place] [address] 19510 Platelet mean volume (Bld) [Entitic vol] 8.2 fL Normal 7-12 [facility] Comment on above: Performed By: #### Neymar PATEL, 91577-0, BMP, 05635-1, 00277-7 #### [facility] ([id number]) [address] [place] [address] [place] [address] Platelets (Bld) [#/Vol] 220 10*3/uL Normal 150-450 [facility] Comment on above: Performed By: #### C BCA, 36112-7, BMP, 77380-5, 90243-1 #### [facility] ([id number]) [address] [place] [address] 24926 RBC COUNT 4.44 X10E12/L Normal 3.80-5.20 [facility] Comment on above: Performed By: #### C BCA, 96338-0, BMP, 25878-4, 18853-1 #### [facility] ([id number]) [address] [place] [address] 76281 WBC (Bld) [#/Vol] 8.1 10*3/uL Normal 4.0-11.0 [facility] Comment on above: Performed By: #### C JORGE, 80682-9, BMP, 85308-1, 20774-7 #### [facility] ([id number]) [address] [place] [address] 92251 COMPREHENSIVE METABOLIC PANE [facility] 04-18-2024 Albumin [Mass/Vol] 3.9 g/dL Normal 3.2-5.3 [facility] Comment on above: Performed By: #### C JORGE, 82601-9, BMP, 58886-7, 48125-3 #### [facility] ([id number]) [address] [place] [address] 86489 ALP [Catalytic activity/Vol] 68 U/L Normal 39-130 [facility] Comment on above: Performed By: #### C BCA, 43641-1, BMP, 89136-2, 97538-2 #### [facility] ([id number]) [address] [place] [address] 96789 ALT [Catalytic activity/Vol] 31 U/L Normal 0-31 [facility] Comment on above: Performed By: #### C JORGE, 98177-5, BMP, 03067-1, 97647-8 #### [facility] ([id number]) [address] [place] [address] 05268 Anion gap [Moles/Vol] 11 mmol/L Normal 5-15 [facility] Comment on above: Performed By: #### Neymar BCA, 76818-7, BMP, 09804-4, 62270-1 #### [facility] ([id number]) [address] [place] [address] 27872 AST [Catalytic activity/Vol] 25 U/L Normal 0-41 [facility] Comment on above: Performed By: #### Neymar BCA, 64586-0, BMP, 37884-6, 62738-2 #### [facility] ([id number]) [address] [place] [address] 69170 Bilirubin [Mass/Vol] 0.7 mg/dL Normal 0.3-1.2 [facility] Comment on above: Performed By: #### C BCA, 16173-9, BMP, 91967-1, 94672-8 #### [facility] ([id number]) [address] [place] [address] 44637 Calcium [Mass/Vol] 7.0 mg/dL Low 8.5-10.5 [facility] Comment on above: Performed By: #### C BCA, 39409-0, BMP, 56591-4, 92481-4 #### [facility] ([id number]) [address] [place] [address] 18789 Chloride [Moles/Vol] 98 mmol/L Normal 98-109 [facility] Comment on above: Performed By: #### C BCA, 44442-5, BMP, 26250-3, 74128-5 #### [facility] ([id number]) [address] [place] [address] 74328 CO2 [Moles/Vol] 24 mmol/L Normal 22-32 [facility] Comment on above: Performed By: #### C BCA, 20398-4, BMP, 31831-1, 03976-6 #### [facility] ([id number]) [address] [place] [address] 06476 Creatinine [Mass/Vol] 1.03 mg/dL High 0.40-1.00 [facility] Comment on above: Result Comment: METH OD TRACEABLE TO IDMS STANDARD Performed By: #### C BCA, 09760-2, BMP, 09102-3, 43519-7 #### [facility] ([id number]) [address] [place] [address] 49959 GFR/1.73 sq M.predicted among non-blacks MDRD (S/P/Bld) [Vol rate/Area] 58 mL/min/{1.73_m2} Low >59 [facility] Comment on above: Result Comment: Reported eGFR is based on the CKD-EPI 2020 equation that does not use a race coefficient. Performed By: #### C BCA, 43864-5, BMP, 91680-8, 30892-4 #### [facility] ([id number]) [address] [place] [address] 12688 Glucose [Mass/Vol] 391 mg/dL High 65-99 [facility] Comment on above: Performed By: #### C BCA, 60978-6, BMP, 98263-3, 36573-1 #### [facility] ([id number]) [address] [place] [address] 12091 Potassium [Moles/Vol] 3.8 mmol/L Normal 3.5-5.0 [facility] Comment on above: Performed By: #### C BCA, 66800-5, BMP, 19902-6, 28939-9 #### [facility] ([id number]) [address] [place] [address] 22975 Protein [Mass/Vol] 6.9 g/dL Normal 6.0-8.0 [facility] Comment on above: Performed By: #### C JORGE, 98792-2, BMP, 04596-2, 82614-2 #### [facility] ([id number]) [address] [place] [address] 55692 Sodium [Moles/Vol] 133 mmol/L Low 134-146 [facility] Comment on above: Performed By: #### C JORGE, 45148-4, BMP, 24439-3, 83092-7 #### [facility] ([id number]) [address] [place] [address] 64834 Urea nitrogen [Mass/Vol] 26 mg/dL Normal 5-27 [facility] Comment on above: Performed By: #### C JORGE, 02713-3, BMP, 86941-3, 53839-4 #### [facility] ([id number]) [address] [place] [address] 68732 Fibrin D-dimer DDU (PPP) [Ma ss/Vol]on 04-18-2024 D DIMER 179 ng/mL DDU Normal <255 [facility] Comment on above: Result Comment: Results <255 ng/mL DDU: The presence of a VTE can safely be excluded with a negative D-Dimer result and Wells score. A negative result doesn't exclude the possibility of DIC. The test be repeated along with other diagnostic tests if the patient's symptoms persist or worsen. [email or web address] Performed By: #### C BCA, 64591-4, BMP, 73563-5, 82808-7 #### [facility] ([id number]) [address] [place] [address] 72723 MAGNESIUMon 04-18-2024 Magnesium [Mass/Vol] 1.9 mg/dL Normal 1.8-2.6 [facility] Comment on above: Performed By: #### C JORGE, 12168-7, BMP, 24162-6, 36762-2 #### [facility] ([id number]) [address] [place] [address] 19535 Troponin I.cardiac High sens itivity method [Mass/Vol]on 04-18-2024 1 HOUR TROP I, HIGH SENSITIVITY 9 ng/L Normal <16 [facility] Comment on above: Performed By: #### C BCA, 83929-1, BMP, 91272-7, 11037-6 #### [facility] ([id number]) [address] [place] [address] 83877 TROPONIN I, HIGH SENSITIVITY 8 ng/L Normal <16 [facility] Comment on above: Performed By: #### C BCA, 26177-9, BMP, 28960-8, 70219-2 #### [facility] ([id number]) [address] [place] [address] 68388 Consultation/Specialist Note on 03-31-2024 Consultation/Specialist Note [id number]#1.00OTGTIFF [facility] Coding Summaryon 03-30-2024 Coding Summary [employer] 64 XzqfpioqENw7lUz+PGhl YWQ+HX8AQQPwH28knWXi cO1uV3GTSRdBOxbtGOZJ MEaDQfXlcmIyUF6grUIk ZXJu IC8+FR1rKNZwMrxuwKTt m1Y9rKE0Y00fby9kJYic dFV8QNBuJaBfixqlo9it fFj1IJagCyrxKiTe JLMpvI74PZS6tD11Rv71 fAPmkIKor3tlgMn7PcQn BNToHDP4lAyjKTbpp8Il ODMcG71peLLff4L5 IGNvbGxhcHNlOyBlbXB0 sO3bOVhheommh7ckwqqq Ezw6rc59tWIvf0W0cBK9 N1IwocI2VFDllHYa MmylmJTUjL8ebgfua3zf hdnoAfLzNWPlXTj3YTx6 GTLzhLojWaJhIE47XJS9 JZBzvuAcT8OaECKf uNiwGkZ2t8W2Rh2BO8MT BedqF5KELTNDEAuvpGM+ IP65ig87Y0PxNqlpOkg8 JXKqKWC0zIA3oG7v UQMyKQvfg8E5fTV2P6Py ogZiuy4es7fmZXBjKHgl V05whIWuo3D4UTMpzGM0 NLXedCrwUkIgfY53 Oyc+SOPrpRxdq6HiNiwa y4tvv8jodOt4PleoEOPa hsKzkGdoZTK2d7KqDv4t LLGvuNY5hTK9dH5j HtWvGkT3KSnlM588DvEd cKZaKhrmO35mN5TpqUQ+ HLSgBzd0NTVzmIdnOM0s H9SsFKGdhvxtyCMn oRblKF7eBBLigvjcNIRq aU6tVLRsK5s0CgMaWaZ3 EFkeD9PhKAKjpnsnVr19 bQ1rXeTtPcU9NPjb U0AomlG1HXYjnDCeMOcg RSD0R30am1V3ZPIyCYTm TQR2fKU9nT9agIqhihtr bGVmdDsgdmVydGlj UPktXVnjL621QIAsvAid PkNvZGluZyBEYXRlOiAg MDYvMDUvMjAyNDwvdGQ+ LMHuWEQ4aFheBETc oHJtCMmaUd6ibFbhvWtc EQ3oNPRwrikpESGtlV1q VYApjMSzmYlmNH7zFMYi wmrct557PiHgMQK1 OENzgRGtS0RdqD5xUsTy BIIbGVWwF4PupSCtPDyn L409LIasNsG7BJMtgiYx D2HeKJCxnWmgWkZ0 a0H4Nw7Bp2ChvfxhP7Vl yGAqYaDgHxbiITg5N2Wk PjwvdHI+YH92MMSwZP11 QEs3JNO0fPwoMLfx XKNdW3EhdU3aKbMtTRGa ZGRkOyc+PHRhYmxlIHdp ZHRoPScxMDAlJyBzdHls TP8vEf5qGXWhGQDd mNqjlGUeNiOyx9dsAJRi UXzuHW5qwLtyS9SxsDY1 GZQsb2t9Gr24I60zQ8Av dXA+JMNdtVO6lLI1 wD1aXwGkKnM8EFllR912 AcKlnXCdNkrqs8mwv2vi iHj4LtI8GKFllsRjiPav FER2e5VtFz33X86d IHdpZHRoPSIxNSUiIHZh jHgycf0zaV3aPq3+PGNv tAD5xDO5jG6lZzUuNqW6 FXixN624ShUgsLTe Civyj3zha9vwlUw5JbJz JNHiyhGrkXyaYJQ9w3Qh Dk98X0JihYcio4GtNgk6 xy41tBZkt4E9wNP1 T6GxDKTiqaczzJAafLqj OP1rZOIuezeaPQZlsH8r CAYsA1q1SeKxDvR7FKsb O5KxexE8VHLimOMh BTFmeNNRdB3qzebnj0bc rpwuOdEwWXNmNDf3KMx7 IPZvmBwhKuLdPBP4OiR2 DGF0yJLicJ0zlJww lecmvG4gPdo+VVO1dGSj kVTHPU9gFbzfdMR+PHRk DFS3xVytSJobLCKwpO3p GPPhS7b9BsTxLzM8 ITlqI0PswwQ6YLRveBMo TPLuhPNPkT7ckmkpd6kt snxxThQgVOBvYJk7EMm4 LWFsaWduOiBsZWZ0 RxK1QIZ7dVTaiI5wfJht vhminD1zWkw+QmlydGgg MKA9IZo1Z3AuIzt9HJSv aZwbVX8ylLLgCJqs Qi4jvAvzhPdxIQ3sVJAn uhyfs408HgInr0inLFYv aFPrIKidNPG5Y37mx0N9 FPTcIRGhXAB7jZJ2 xG9vaLphilmzaMUedAby bcCizXhoXAfpAZznD576 JSAjwCfgDoOkNBi0E3Ot Zqx0WBJhbFbnMX1h uXNjPHzbGk3gePhblPli JS6cVNIwmdobt381HtJi l3bpPOWojGPuTImqTWM9 X93ww8S3NNRoSZGz XMG6iLX9fO1lpDzqmzve bGVmdDsgdmVydGljYWwt BYlyJ934WYXgrYuiQqDh lUu4Y2MlDzv2RCRl dTksCG8fmVEkPHjuSk4s gJlsnCphMO5vZGEntcel o138YuEbb9rdUJXkfENa CBktAJM7L69zt3W8 FHBoOIUwMYV1rBX1wX6a bGlnbjogbGVmdDsgdmVy vVjrECxxGHvtJ852VSZp cDsnPlBhdGllbnQg REjnHXd0P6IvVqlsdPK+ EK16EOIpNG06eKLjiRPq q0ebsIi8VkGtLHSuDZS6 wFmwHGlza9NeLXUb N43knZDzb6S8VNLvvFev pRUfBrTthDA7mB0gFAhu emhjc0ylhmfjYpedt6dv so99rU96S73fREzx ZHRoPSIzMCUiIHZhbGln wb7piE5aCk9+PGNvbCB3 nOK9eO9dXIWsZyO9HHrw E253TeSomOLwLegn m8szc1bgaIx2XaH7HZDm poCxxYnmKKD2u2CpQv41 O17dNXrdGQOnSIJwHAGi XGZmcCaeis7bwZ2d Ii8+TQHwoAU4pKM5cD4l NlUhSuK4IBjvD034KuLp kZDtGyygU61oR7VrhQL+ ESGeGcr9TPAuqEfa KN0bkHQbFAvfHd5yUUD1 FbUaSaTtMVuxT9WyXPFy ddlfyysjoYZ3WZInAOIu tH75Mb9ydPeqULXp dNLRaM8ahtddz2hmcnwp DnDeZBReZSb1GCz5YELy dLavFqMgHNE5RdL4BJF8 lKJykZ5hbKehrimn nB1vQ4NsSKStmdkfEe49 uB1nGkPrRtJ7FMlgHnj+ QA9TIRVAOBDUMwRQXLLy UzwvdGQ+PHRkIHN0 qDqaCMdpCSXmrJ4gHHSk Q7d2KqPqPyF1WHgbC2Nc ZTUwstktVd04mW9pMzOe VbM4IPcnQ5NlzcS5 WPRaeJIbFSxgSXD6G65t p0O2FTQeFZZwKGO4lMW5 hU3kzNkbvnpvwWCxsQzg dmVydGljYWwtYWxp D895SAAriKbnWaQqKjGv TvB8HKZ2E2WuYow8WEUn fBigUB3iwKJbRKlyUd5z kIkfwCioMU4oLBVp tkkzNQWlbL0jCFHncMBm oJvgLV9yDTHxjpezd646 DnIcPSS6CWJujEGzU8It jL2dCbOkHMReRDTa W0NsiIQwQDymL819BMqb IgB9JZDpxpUnC5LdCRWf kVlkOqJ6c7T1Tg83FUFD ZWFyczwvdGQ+PHRk FMO9sXryHVvkWLBebX3w MENdT5m7ZtAhLmO0IHht Y7DzUVIqulpjGw74yZ9h WaLhQsB4GSkwK6Ae jaH2AHBynHVdNMwzDSW2 W11zz9S2FNQgRGOxXLJ1 gIT9yI0nkVqcwlsxmGYt dDsgdmVydGljYWwt FDdqF219ILKzkJzmXwGQ TUFMRTwvdGQ+PHRkIHN0 hWwbCEiwVVGwkL1kKYTi C5d4YjVnAbP2YFvv E0IeQTMewqzkPi92xV1f VhXcRqI6GCwuE2AphxK7 JJJspYWqRClaQPA5B60n c2W9ZGOcGNOeRWX7 sYN5fF0qeOcxnwcvhSYz dDsgdmVydGljYWwtYWxp P005XAJycPzlUo4ROS42 GW80N8AdCepnvFLg bGU+PHRhYmxlIHdpZHRo ZCqcIJGbBrQunHrsNR5q Jz6cRRYnZUNqoSrkeYFn PfZek6reKFCnWKix SW3waYvoP8JdtRI3IXYs y4h5Ih35H10iJ6XidNA+ DOHxoAF0vXJ8yP1kDkWy BvQ0DEkjE680FgZd wIMiBklju3nfs3qbqTj7 IjMwJSIgdmFsaWduPSJ0 k6MuQk09N13oJCfxZAQe PSIyMCUiIHZhbGln nm8heJ1cWk5+PGNvbCB3 xLK0sY7iLbOeDrU3WXjn T020JkAlzUKfJngaE12v F3ZfsRL+PHRyPjx0 CGDzsHobUE7jeCIdWOvg Qm8cUZI1KfXyCfFhKSwk I2EqXXAudxiscmjrnMV1 SUNqREEpsT50Rs0p sSrnMr9lLVJyVOS5BCEu nVBkO7HlbZ5dUkJoDPCb GHLbU4NmtSDwNZbjT536 OAlhXkK3FHBepoXo D3QbZLJymBawGfN7h3X5 Ql4FoEinaUNwKT2kQfHz IGo0C2HxOfj1HOMttKys DS6pvMZxNTjmQi1w eJkjnStwCA8oVVBbcitq z476OuYfm6wuYIOhkHUm CLnfPIH6X57hq3K6YVQv BKObJEE0zPT2cE6g bGlnbjogbGVmdDsgdmVy zNqiYCjrAKuyK512PBZu jNfoKeGQKlu0X9RrHnn4 TTYmpEsuMY5jqVXa KUxrFa4cyTlmeIgeLT3d XNZrbvrxa013KbMfs4dd ANElyLNgOUerBMA2H83l s5I6YNIiGMKsGRE8 lDP8iI2miGnnyykacOZn dDsgdmVydGljYWwtYWxp V793QSUmvJmwPr1WIbd9 D1HiVim8GUQatOjz EA4cbFLoAYbwNa5uhEwj uQukOW2uWPKwdzfbx905 SkHmv9stVTBdsFDxQQlk KNX8Y65ox0W4ZZXd WSByQPB7aJQ5vG9wxNtl bjogbGVmdDsgdmVydGlj RJyrJZkhZ140LDKbhSlr PlBheWVyOjwvdGQ+ EV74nl88H6LzPwjjGeq8 WEGvUOQ8cQK0tR7aTVBi WQfmm8O4xPC0Y6RwrzVs sy2mi9tdWUJwJAsl Y29 (more content not included)... Normal [facility] Reminder Messageson 03-23-20 24 Reminder Messages - From: MIGUEL BROCK DO To: [facility] Clinical Pool ([facility] Sent: 03/22/2024 16:38:55 EDT ! Show up: [...] patient [Electronically Signed on: 03/24/2024 14:53 EDT] Lei Erlinda [facility] Reminder Messages - From: MIGUEL BROCK DO To: [facility] Clinical Pool ([facility]); Sent: 03/22/2024 16:36:57 EDT ! Show up: 03/22/2024 16:36:57 EDT Subject: Results Follow Up Actions: Call the patient with result(s) Due Date/Time: 03/23/2024 16:36:00 EDT Reminder Comments: looks good birads 2 recheck 1 year Results: Date Result Type Result Name 03/22/2024 16:30 Radiology US Breast Left Complete. lvm with results and recommendations [facility] Reminder Messages - From: MIGUEL BROCK DO To: [facility] Clinical Pool ([facility] Sent: 03/22/2024 16:38:13 EDT ! Show up: 03/22/2024 16:38:13 EDT Subject: Results Follow Up Actions: Call the patient with result(s) Due Date/Time: 03/23/2024 16:37:00 EDT Reminder Comments: looks good birads 2 repeat in 1 year Results: Date Result Type Result Name 03/22/2024 16:25 Radiology [place] Mammo Diagnostic 3D Bilateral. LVM with results and recommendations [facility] Mammo Diagnostic 3D Bilat eral.on 03-22-2024 [place] Mammo Diagnostic 3D Bilateral. MAMMOGRAM DIAGNOSTIC 3-D [...] Mildly scattered benign-appearing calcifications bilaterally. R2 image Investigator Vice was utilized for this study. IMPRESSION: No [...] Titi Chi MD 03/22/24 4:23 pm Technologist: YVETTE Assessment: 2-Benign finding Recommendation: Normal interval follow-up [facility] US Breast Left Complete.on 0 03-22-2024 [...] MD 03/22/24 4:28 pm Technologist: SMITHA DIEGO [facility] Outside Recordson 03-14-2024 Outside Records [id number] #1.00OTGTIFF Normal [facility] Lab - Other Lab [facility] Lab - Other Lab Results [id number] #1.00OTGTIFF Normal [facility] AFB CULTURE(CONCENTRATED)on 03-01-2024 Mycobacterium sp identified Org specific cx Nom (Unsp spec) SPECIMEN NOTES SPECIMEN 1 AFB SMEAR NO ACID FAST BACILLI (CONCENTRATED SMEAR) CULTURE RESULTS NO ACID FAST BACILLI ISOLATED IN 8 WEEKS Normal [facility] Comment on above: Performed By: #### 5 43-9 ####[facility] ([id number])[address], [place] [address] AND DIFFon 2023 BODY FLUID COMMENT Interpreta tion-------- Normal [facility] Comment on above: Result Comment: Refe rence values for this fluid type are undefined, as fluid accumulation is considered abnormal. Assorted lining cells present. Performed By: #### B FCT #### [facility] ([id number]) [address], [address] [place] [address] FLUID CLARITY CLEAR Normal [facility] Comment on above: Performed By: #### B FCT #### [facility] ([id number]) [address], [address] [place] [address] FLUID COLOR COLORLESS Normal [facility] Comment on above: Performed By: #### B FCT #### [facility] ([id number]) [address], [address] [place] [address] FLUID LYMPHOCYTE 15 % Normal [facility] Comment on above: Performed By: #### B FCT #### [facility] ([id number]) [address], [address] [place] [address] FLUID NEUTROPHILS 50 % Normal [facility] Comment on above: Performed By: #### B FCT #### [facility] ([id number]) [address] [place] [address], [address] [place] [address] 42 /uL Normal [facility] Comment on above: Performed By: #### B FCT #### [facility] ([id number]) [address] [place] [address], [address] [place] [address] FLUID SPECIMEN TYPE BRONCHOALVEOLAR LAVAGE Normal [facility] Comment on above: Result Comment: RIGH T LUNG, MIDDLE LOBE Performed By: #### B FCT #### [facility] ([id number]) [address] [place] [address], [address] [place] [address] MACROPHAGES 35 % Normal [facility] Comment on above: Performed By: #### B FCT #### [facility] ([id number]) [address] [place] [address], [address] [place] [address] 38 /uL Normal [facility] Comment on above: Performed By: #### B FCT #### [facility] ([id number]) [address] [place] [address], [address] [place] [address] Cytologyon 03-01-2024 Cytology Normal [facility] Comment on above: Result Comment: [facility] [address] [place] [address] Cytology Consultation Patient Name:JAZZMINE PATEL:1950 (Age: 73)Gender:FTaken:03/01/2024eported:03/03/2024 10:42Physician(s):EILEEN FONSECA DO ([phone])Copy To: Rec. #:[id number]: #[id number] Final Cytologic Diagnosis 1. 4L fine needle aspirate: No malignant epithelial cells identified. Adequate lymphoid sample 2. Right middle lobe bronchoalveolar lavage: No malignant cells identified. nsk/03/03/2024 Interpretation performed at [facility], [address] [place] [address], License number: [id number].Electronically Signed Out By Sangeeta German MD Clinical History Adenocarcinoma of lingula. lung cancer, need for staging Rapid On Site Interpretation 1. 4L fine needle aspirate: Passes 1-3: Negative, adequate lymphoid cells Dr. Cortes Interpretation provided at [facility], [address] [place] [address]. Gross Description 1.Prepared in Endoscopy were 6 [...] 4L fine needle aspirate Cell block for Non-winch operator (M), Level 2 H&E, Slides Made x 6 2: Right middle lobe bronchoalveolar lavage Cell block for Non-winch operator (M), Level 2 H&E, Non BATCH TESTER ThinPrep Fee Code(s): 1; 95222, 03588, 94801 2; 98962, 48205 FUNGAL CULTUREon 03-01-2024 Fungus identified Cx Nom (Unsp spec) SPECIMEN NOTES SPECIMEN 1 FUNGAL SMEAR NO FUNGAL ELEMENTS SEEN ON CONCENTRATED SMEAR CULTURE RESULTS NO FUNGUS ISOLATED AFTER 4 WEEKS Normal [facility] Comment on above: Performed By: #### 5 80-1 ####[facility] ([id number])[address] [place], [place] [address] Glucose Glucometer (BldC) [M ass/Vol]on 03-01-2024 Glucose [Mass/Vol] 124 mg/dL High 65-99 [facility] LOWER RESPIRATORY CULTUREon 03-01-2024 Bacteria identified Respiratory [...] Interpretation ] Organism: STREPTOCOCCUS PNEUMONIAE Antibiotic Interpretation UNIQEU Status AZITHROMYCIN R F CEFOTAXIME(meningiti s) S [...] endocarditis). PENICILLIN(IV,nonmen ing.) S 1 F Susceptible [facility] Comment on above: Performed By: #### 6 24-7 ####[facility] ([id number])[address] [place] [address], [address] [place] [address] BASIC METABOLIC PANLon 02-25 Anion gap [Moles/Vol] 10 mmol/L Normal 5-15 [facility] Comment on above: Performed By: #### C JORGE, 07845-6, BMP, 16448-2, 93612-3 #### [facility] ([id number]) [address] [place] [address]45 Calcium [Mass/Vol] 8.5 mg/dL Normal 8.5-10.5 [facility] Comment on above: Performed By: #### C JORGE, 47181-7, BMP, 68282-0, 11510-8 #### [facility] ([id number]) [address] [place] [address] 97148 Chloride [Moles/Vol] 99 mmol/L Normal 98-109 [facility] Comment on above: Performed By: #### C BCA, 42824-9, BMP, 87232-0, 52625-7 #### [facility] ([id number]) [address] [place] [address] 27795 CO2 [Moles/Vol] 32 mmol/L Normal 22-32 [facility] Comment on above: Performed By: #### C BCA, 33170-6, BMP, 49245-3, 99035-9 #### [facility] ([id number]) [address] [place] [address] 74297 Creatinine [Mass/Vol] 0.90 mg/dL Normal 0.40-1.00 [facility] Comment on above: Result Comment: METH OD TRACEABLE TO IDMS STANDARD Performed By: #### C JORGE, 19239-3, BMP, 17172-0, 78164-9 #### [facility] ([id number]) [address] [place] [address] 82621 GFR/1.73 sq M.predicted among non-blacks MDRD (S/P/Bld) [Vol rate/Area] 68 mL/min/{1.73_m2} Normal >59 [facility] Comment on above: Result Comment: Reported eGFR is based on the CKD-EPI 2020 equation that does not use a race coefficient. Performed By: #### C BCA, 47805-8, BMP, 27712-0, 06314-3 #### [facility] ([id number]) [address] [place] [address] 02995 Glucose [Mass/Vol] 92 mg/dL Normal 65-99 [facility] Comment on above: Performed By: #### C BCA, 65461-5, BMP, 84770-3, 37589-6 #### [facility] ([id number]) [address] [place] [address] 76909 Potassium [Moles/Vol] 4.0 mmol/L Normal 3.5-5.0 [facility] Comment on above: Performed By: #### C BCA, 08697-4, BMP, 28092-1, 31558-6 #### [facility] ([id number]) [address] [place] [address] 03181 Sodium [Moles/Vol] 141 mmol/L Normal 134-146 [facility] Comment on above: Performed By: #### Neymar BCA, 73984-2, BMP, 83615-4, 30341-3 #### [facility] ([id number]) [address] [place] [address] 63065 Urea nitrogen [Mass/Vol] 21 mg/dL Normal 5-27 [facility] Comment on above: Performed By: #### Neymar BCA, 89552-6, BMP, 53518-4, 50339-1 #### [facility] ([id number]) [address] [place] [address] 43228 CBC AND AUTO DIFFon 02-26-20 24 ABSOLUTE BASOPHIL 0.1 X10E9/L Normal 0.0-0.2 [facility] Comment on above: Performed By: #### Neymar BCA, 51033-3, BMP, 70235-2, 83742-9 #### [facility] ([id number]) [address] [place] [address] 82201 ABSOLUTE NEUTROPHIL 3.8 X10E9/L Normal 1.5-6.6 [facility] Comment on above: Performed By: #### C BCA, 01839-8, BMP, 65189-8, 37603-6 #### [facility] ([id number]) [address] [place] [address] 00287 Basophils/100 WBC (Bld) 1.2 % Normal [facility] Comment on above: Performed By: #### Neymar BCA, 99702-1, BMP, 38197-2, 04524-3 #### [facility] ([id number]) [address] [place] [address] 09287 Eosinophils (Bld) [#/Vol] 0.2 10*3/uL Normal 0.0-0.4 [facility] Comment on above: Performed By: #### Neymar PATEL, 39885-0, BMP, 22988-1, 31349-8 #### [facility] ([id number]) [address] [place] [address] 89091 Eosinophils/100 WBC (Bld) 2.9 % Normal [facility] Comment on above: Performed By: #### Neymar PATEL, 50301-0, BMP, 98331-1, 70745-7 #### [facility] ([id number]) [address] [place] [address] 36617 Erythrocyte distribution width (RBC) [Ratio] 14.3 % Normal 11.5-15.0 [facility] Comment on above: Performed By: #### Neymar PATEL, 47067-4, BMP, 10520-9, 33136-9 #### [facility] ([id number]) [address] [place] [address] 27485 Hematocrit (Bld) [Volume fraction] 42.1 % Normal 35-47 [facility] Comment on above: Performed By: #### Neymar PATEL, 86172-2, BMP, 53080-2, 08174-0 #### [facility] ([id number]) [address] [place] [address] 67369 Hemoglobin (Bld) [Mass/Vol] 14.4 g/dL Normal 11.7-15.5 [facility] Comment on above: Performed By: #### Neymar PATEL, 45588-7, BMP, 41918-9, 05762-6 #### [facility] ([id number]) [address] [place] [address] 72807 Lymphocytes (Bld) [#/Vol] 2.3 10*3/uL Normal 1.0-3.5 [facility] Comment on above: Performed By: #### C JORGE, 22961-0, BMP, 05959-1, 98268-7 #### [facility] ([id number]) [address] [place] [address] 77074 Lymphocytes/100 WBC (Bld) 33.4 % Normal [facility] Comment on above: Performed By: #### Neymar PATEL, 05991-3, BMP, 95299-0, 98647-2 #### [facility] ([id number]) [address] [place] [address] 17361 MCH (RBC) [Entitic mass] 30.3 pg Normal 27-34 [facility] Comment on above: Performed By: #### Neymar PATEL, 84806-4, BMP, 35149-0, 29266-1 #### [facility] ([id number]) [address] [place] [address] 89837 MCHC (RBC) [Mass/Vol] 34.1 g/dL Normal 32-36 [facility] Comment on above: Performed By: #### Neymar PATEL, 71978-6, BMP, 96062-0, 91548-2 #### [facility] ([id number]) [address] [place] [address] 26858 MCV (RBC) [Entitic vol] 89 fL Normal 80-100 [facility] Comment on above: Performed By: #### Neymar PATEL, 44346-4, BMP, 31693-0, 85339-0 #### [facility] ([id number]) [address] [place] [address] 49981 Monocytes (Bld) [#/Vol] 0.5 10*3/uL Normal 0-0.9 [facility] Comment on above: Performed By: #### Neymar PATEL, 89828-2, BMP, 48064-0, 47757-5 #### [facility] ([id number]) [address] [place] [address] 10610 Monocytes/100 WBC (Bld) 7.1 % Normal [facility] Comment on above: Performed By: #### Neymar BCA, 26633-1, BMP, 49274-6, 96853-9 #### [facility] ([id number]) [address] [place] [address] 77390 Neutrophils/100 WBC (Bld) 55.4 % Normal [facility] Comment on above: Performed By: #### Neymar BCA, 35547-6, BMP, 43092-3, 45716-0 #### [facility] ([id number]) [address] [place] [address] 19170 Platelet mean volume (Bld) [Entitic vol] 9.1 fL Normal 7-12 [facility] Comment on above: Performed By: #### Neymar PATEL, 84664-7, BMP, 91112-9, 09366-1 #### [facility] ([id number]) [address] [place] [address] 31492 Platelets (Bld) [#/Vol] 252 10*3/uL Normal 150-450 [facility] Comment on above: Performed By: #### Neymar PATEL, 23441-6, BMP, 26496-8, 87740-1 #### [facility] ([id number]) [address] [place] [address] 22752 RBC COUNT 4.73 X10E12/L Normal 3.80-5.20 [facility] Comment on above: Performed By: #### Neymar BCA, 46743-5, BMP, 35605-0, 10723-0 #### [facility] ([id number]) [address] [place] [address] 91065 WBC (Bld) [#/Vol] 6.9 10*3/uL Normal 4.0-11.0 [facility] Comment on above: Performed By: #### Neymar BCA, 78963-6, BMP, 54573-6, 68405-1 #### [facility] ([id number]) [address] [place] [address] 68284 HGB A1C (GLYCO-HGB)on 2023 Glucose [Mass/Vol] 140 mg/dL Normal [facility] Comment on above: Performed By: #### C JORGE, 01000-2, BMP, 46801-8, 99335-3 #### [facility] ([id number]) [address] [place] [address] 69673 HbA1c (Bld) [Mass fraction] 6.5 % High 4.4-5.6 [facility] Comment on above: Result Comment: NOTE ADA Guidelines Result HgbA1c Normal : less than 5.7 % Prediabetes : 5.7 % to 6.4 % Diabetes : > 6.4 % Use with caution in patients with abnormal hemoglobin variants as the half-life of red blood cells and in vivo glycation rates are affected. Performed By: #### C JORGE, 32628-3, BMP, 67510-2, 29545-9 #### [facility] ([id number]) [address] [place] [address] 02142 PROTIME AND INRon 02-26-2024 INR Coag (PPP) [Relative time] 1.0 {INR} Normal 0.8-1.1 [facility] Comment on above: Performed By: #### Neymar PATEL, 47066-9, BMP, 94080-9, 20996-2 #### [facility] ([id number]) [address] [place] [address] 23765 PT Coag (PPP) [Time] 11.2 s Normal 9.8-13.2 [facility] Comment on above: Result Comment: NEW REFERENCE RANGE Performed By: #### Neymar PATEL, 46199-3, BMP, 08031-4, 63250-1 #### [facility] ([id number]) [address] [place] [address] 67449 aPTT Coag (PPP) [Time]on aPTT Coag (Bld) [Time] 36 s Normal 26-37 [facility] Comment on above: Result Comment: NEW REFERENCE RANGE Performed By: #### C BCA, 71305-5, BMP, 10274-3, 07920-5 #### [facility] ([id number]) [address] [place] [address] 44256 BASIC METABOLIC PANLon 02-22 Anion gap [Moles/Vol] 12 mmol/L Normal 5-15 [facility] Comment on above: Performed By: #### C BCA, 64351-6, BMP, 18932-6, 04307-2 #### [facility] ([id number]) [address] [place] [address] 95004 Calcium [Mass/Vol] 8.0 mg/dL Low 8.5-10.5 [facility] Comment on above: Performed By: #### C BCA, 30904-4, BMP, 29741-0, 31785-6 #### [facility] ([id number]) [address] [place] [address] 97875 Chloride [Moles/Vol] 100 mmol/L Normal 98-109 [facility] Comment on above: Performed By: #### Neymar BCA, 80931-0, BMP, 49248-8, 23691-3 #### [facility] ([id number]) [address] [place] [address] 20466 CO2 [Moles/Vol] 29 mmol/L Normal 22-32 [facility] Comment on above: Performed By: #### C BCA, 95977-3, BMP, 32844-6, 73574-4 #### [facility] ([id number]) [address] [place] [address] 79734 Creatinine [Mass/Vol] 0.88 mg/dL Normal 0.40-1.00 [facility] Comment on above: Result Comment: METH OD TRACEABLE TO IDMS STANDARD Performed By: #### C JORGE, 49485-8, BMP, 22622-5, 67564-0 #### [facility] ([id number]) [address] [place] [address] 71745 GFR/1.73 sq M.predicted among non-blacks MDRD (S/P/Bld) [Vol rate/Area] 70 mL/min/{1.73_m2} Normal >59 [facility] Comment on above: Result Comment: Reported eGFR is based on the CKD-EPI 2020 equation that does not use a race coefficient. Performed By: #### C JORGE, 31109-2, BMP, 60567-3, 63867-6 #### [facility] ([id number]) [address] [place] [address] 87735 Glucose [Mass/Vol] 129 mg/dL High 65-99 [facility] Comment on above: Performed By: #### C JORGE, 24810-6, BMP, 07907-7, 68519-1 #### [facility] ([id number]) [address] [place] [address] 45531 Potassium [Moles/Vol] 4.1 mmol/L Normal 3.5-5.0 [facility] Comment on above: Performed By: #### C JORGE, 48124-1, BMP, 70061-9, 64564-7 #### [facility] ([id number]) [address] [place] [address] 41455 Sodium [Moles/Vol] 141 mmol/L Normal 134-146 [facility] Comment on above: Performed By: #### C JORGE, 27626-9, BMP, 80023-9, 19019-3 #### [facility] ([id number]) [address] [place] [address] 95299 Urea nitrogen [Mass/Vol] 16 mg/dL Normal 5-27 [facility] Comment on above: Performed By: #### Neymar PATEL, 28244-3, BMP, 38870-7, 00805-2 #### [facility] ([id number]) [address] [place] [address] 19672 Consultation/Specialist Note on 02-23-2024 Consultation/Specialist Note [id number] #1.00[facility] Lipid 1996 panelon Cholesterol [Mass/Vol] 124 mg/dL Low 150-200 [facility] Comment on above: Performed By: ###Lily Blackmon BCA, 09725-8, BMP, 10558-6, 34668-4 #### [facility] ([id number]) [address] [place] [address] 95411 Cholesterol in HDL [Mass/Vol] 54 mg/dL Normal >39 [facility] Comment on above: Result Comment: HDL <40 mg/dL - High Risk HDL > or = 40mg/dL- Desirable HDL >60 mg/dL - Negative Risk Performed By: ##Kamila Blackmon BCA, 25387-7, BMP, 90920-3, 72770-6 #### [facility] ([id number]) [address] [place] [address] 50180 Cholesterol in LDL [Mass/Vol] 50 mg/dL Normal <130 [facility] Comment on above: Result Comment: LDL <100 mg/dL - Desirable LDL >160 mg/dL - High Risk Performed By: ###Lily Blackmon BCA, 34788-1, BMP, 46194-5, 05577-2 #### [facility] ([id number]) [address] [place] [address] 33507 Cholesterol in VLDL [Mass/Vol] 20 mg/dL Normal 0-30 [facility] Comment on above: Performed By: #### C BCA, 56347-5, BMP, 30238-8, 72198-4 #### [facility] ([id number]) [address] [place] [address] 35957 CHOLESTEROL:HDL 2.3 Normal 1.0-5.0 [facility] Comment on above: Performed By: #### C BCA, 15461-4, BMP, 30620-0, 32810-1 #### [facility] ([id number]) [address] [place] [address] 47047 Triglyceride [Mass/Vol] 98 mg/dL Normal 27-150 P [facility] Comment on above: Performed By: #### C BCA, 19206-6, BMP, 58435-7, 91719-2 #### [facility] ([id number]) [address] [place] [address] 28176 MR BRAIN W WO CONTon 024 MR [...] You MD on 02/23/2024 12:27 PM Normal [facility] THYROID PROFILEon 02-23-2024 Free T4 [Mass/Vol] 0.67 ng/dL Normal 0.61-1.60 [facility] Comment on above: Performed By: #### C BCA, 06311-6, BMP, 40023-4, 82063-2 #### [facility] ([id number]) [address] [place] [address] 40990 TSH 0.50 uIU/mL Normal 0.49-4.67 [facility] Comment on above: Performed By: #### C BCA, 04508-3, BMP, 95162-8, 39592-3 #### [facility] ([id number]) [address] [place] [address] 69418 Lab - Other Lab Resultson Lab - Other Lab Results [id number] 8#1.00OTGTIFF [facility] Rad - Other Radiology Report on 02-16-2024 Rad - Other Radiology Report [id number] 0#1.00OTGTIFF [facility] PET CT SKULL TO THIGHon 01-25 [...] Kumar MD on 02/15/2024 9:25 AM Normal [facility] Lab - Other Pathology Report on 02-04-2024 Lab - Other Pathology Report [id number] #1.00OTGTIFF [facility] Outside Recordson 02-04-2024 Outside Records [id number] [facility] AND [facility]O DIFFon 02-01-20 24 ABSOLUTE BASOPHIL 0.1 X10E9/L Normal 0.0-0.2 [facility] Comment on above: Performed By: #### C JORGE, 54615-3, [facility], 67508-3, 34116-0 #### [facility] ([id number]) [address] [place] [address] 75845 ABSOLUTE NEUTROPHIL 6.5 X10E9/L Normal 1.5-6.6 [facility] Comment on above: Performed By: #### C JORGE, 99265-3, [facility], 30072-8, 57685-2 #### [facility] ([id number]) [address] [place] [address] 76371 Basophils/100 WBC (Bld) 0.7 % Normal [facility] Comment on above: Performed By: #### C BCA, 46475-1, BMP, 58477-8, 09933-9 #### [facility] ([id number]) [address] [place] [address] Eosinophils (Bld) [#/Vol] 0.2 10*3/uL Normal 0.0-0.4 [facility] Comment on above: Performed By: #### Neymar BCA, 89243-2, BMP, 55365-4, 44638-9 #### [facility] ([id number]) [address] [place], [place] [address] Eosinophils/100 WBC (Bld) 1.9 % Normal [facility] Comment on above: Performed By: #### Neymar PATEL, 25163-3, BMP, 42929-3, 67752-9 #### [facility] ([id number]) [address] [place], [place] [address] Erythrocyte distribution width (RBC) [Ratio] 14.1 % Normal 11.5-15.0 [facility] Comment on above: Performed By: #### Neymar PATEL, 84416-7, BMP, 61824-2, 69160-6 #### [facility] ([id number]) [address] [place], [place] [address] Hematocrit (Bld) [Volume fraction] 38.7 % Normal 35-47 [facility] Comment on above: Performed By: #### Neymar BCA, 58487-4, BMP, 42068-0, 88163-3 #### [facility] ([id number]) [address] [place], [place] [address] Hemoglobin (Bld) [Mass/Vol] 13.0 g/dL Normal 11.7-15.5 [facility] Comment on above: Performed By: #### Neymar PATEL, 67922-2, BMP, 16133-9, 56686-9 #### [facility] ([id number]) [address] [place] [address] 94324 Lymphocytes (Bld) [#/Vol] 2.2 10*3/uL Normal 1.0-3.5 [facility] Comment on above: Performed By: #### Neymar BCA, 92149-3, BMP, 43453-6, 27373-3 #### [facility] ([id number]) [address] [place] [address] 77057 Lymphocytes/100 WBC (Bld) 22.5 % Normal [facility] Comment on above: Performed By: #### Neymar PATEL, 65301-2, BMP, 97307-8, 83698-1 #### [facility] ([id number]) [address] [place] [address] 77709 MCH (RBC) [Entitic mass] 30.0 pg Normal 27-34 [facility] Comment on above: Performed By: #### Neymar PATEL, 92158-5, BMP, 89317-0, 12469-9 #### [facility] ([id number]) [address] [place] [address] 40122 MCHC (RBC) [Mass/Vol] 33.7 g/dL Normal 32-36 [facility] Comment on above: Performed By: #### Neymar PATEL, 19916-8, BMP, 31037-2, 11964-9 #### [facility] ([id number]) [address] [place] [address] 57950 MCV (RBC) [Entitic vol] 89 fL Normal 80-100 [facility] Comment on above: Performed By: #### Neymar PATEL, 80823-9, BMP, 32128-0, 79410-0 #### [facility] ([id number]) [address] [place] [address] 40995 Monocytes (Bld) [#/Vol] 0.7 10*3/uL Normal 0-0.9 [facility] Comment on above: Performed By: #### Neymar BCA, 93955-7, BMP, 58963-6, 66857-6 #### [facility] ([id number]) [address] [place] [address] 44088 Monocytes/100 WBC (Bld) 7.4 % Normal [facility] Comment on above: Performed By: #### Neymar BCA, 53539-3, BMP, 75202-8, 69171-9 #### [facility] ([id number]) [address] [place] [address] 78143 Neutrophils/100 WBC (Bld) 67.5 % Normal [facility] Comment on above: Performed By: #### Neymar BCA, 76607-5, BMP, 47604-7, 33950-2 #### [facility] ([id number]) [address] [place] [address] 36191 Platelet mean volume (Bld) [Entitic vol] 8.4 fL Normal 7-12 [facility] Comment on above: Performed By: #### Neymar PATEL, 83425-6, BMP, 46867-3, 42721-3 #### [facility] ([id number]) [address] [place] [address] 88932 Platelets (Bld) [#/Vol] 256 10*3/uL Normal 150-450 [facility] Comment on above: Performed By: #### Neymar BCA, 17807-6, BMP, 08790-2, 10786-6 #### [facility] ([id number]) [address] [place] [address] 99527 RBC COUNT 4.34 X10E12/L Normal 3.80-5.20 [facility] Comment on above: Performed By: #### Neymar BCA, 69138-1, BMP, 35459-4, 46413-5 #### [facility] ([id number]) [address] [place] [address] 11396 WBC (Bld) [#/Vol] 9.6 10*3/uL Normal 4.0-11.0 [facility] Comment on above: Performed By: #### C BCA, 41717-0, BMP, 38232-9, 66417-4 #### [facility] ([id number]) [address] [place] [address] 64843 COMPREHENSIVE METABOLIC PANE Kemal 02-01-2024 Albumin [Mass/Vol] 3.4 g/dL Normal 3.2-5.3 [facility] Comment on above: Performed By: #### C BCA, 07818-5, BMP, 40778-1, 46224-3 #### [facility] ([id number]) [address] [place] [address] 15844 ALP [Catalytic activity/Vol] 63 U/L Normal 39-130 [facility] Comment on above: Performed By: #### Neymar BCA, 80897-0, BMP, 11832-4, 62182-7 #### [facility] ([id number]) [address] [place] [address] 51767 ALT [Catalytic activity/Vol] 31 U/L Normal 0-31 [facility] Comment on above: Performed By: #### Neymar BCA, 38281-5, BMP, 93388-8, 82445-4 #### [facility] ([id number]) [address] [place] [address] 11904 Anion gap [Moles/Vol] 6 mmol/L Normal 5-15 [facility] Comment on above: Performed By: #### C BCA, 06018-3, BMP, 10157-8, 81259-7 #### [facility] ([id number]) [address] [place] [address] 45620 AST [Catalytic activity/Vol] 29 U/L Normal 0-41 [facility] Comment on above: Performed By: #### Neymar BCA, 96896-9, BMP, 65498-1, 06206-5 #### [facility] ([id number]) [address] [place] [address] 91101 Bilirubin [Mass/Vol] 0.4 mg/dL Normal 0.3-1.2 [facility] Comment on above: Performed By: #### C BCA, 83616-7, BMP, 26659-7, 37094-8 #### [facility] ([id number]) [address] [place] [address] 14695 Calcium [Mass/Vol] 6.8 mg/dL Critically low 8.5-10.5 [facility] Comment on above: Performed By: #### C BCA, 16231-4, BMP, 75595-1, 43636-6 #### [facility] ([id number]) [address] [place] [address] 84272 Chloride [Moles/Vol] 103 mmol/L Normal 98-109 [facility] Comment on above: Performed By: #### C BCA, 60572-3, BMP, 07898-9, 09049-4 #### [facility] ([id number]) [address] [place] [address] 92143 CO2 [Moles/Vol] 27 mmol/L Normal 22-32 [facility] Comment on above: Performed By: #### C BCA, 54477-7, BMP, 83509-8, 79915-6 #### [facility] ([id number]) [address] [place] [address] 05764 Creatinine [Mass/Vol] 0.88 mg/dL Normal 0.40-1.00 [facility] Comment on above: Result Comment: METH OD TRACEABLE TO IDMS STANDARD Performed By: #### C BCA, 96577-4, BMP, 87873-8, 23762-1 #### [facility] ([id number]) [address] [place] [address] 16766 GFR/1.73 sq M.predicted among non-blacks MDRD (S/P/Bld) [Vol rate/Area] 70 mL/min/{1.73_m2} Normal >59 [facility] Comment on above: Result Comment: Reported eGFR is based on the CKD-EPI 2020 equation that does not use a race coefficient. Performed By: #### C BCA, 01351-1, BMP, 16091-4, 58414-4 #### [facility] ([id number]) [address] [place] [address] 65378 Glucose [Mass/Vol] 159 mg/dL High 65-99 [facility] Comment on above: Performed By: #### C BCA, 67101-4, BMP, 49631-6, 84628-4 #### [facility] ([id number]) [address] [place] [address] 69085 Potassium [Moles/Vol] 3.4 mmol/L Low 3.5-5.0 [facility] Comment on above: Performed By: #### C BCA, 04538-6, BMP, 35669-3, 09513-2 #### [facility] ([id number]) [address] [place] [address] 38206 Protein [Mass/Vol] 7.0 g/dL Normal 6.0-8.0 [facility] Comment on above: Performed By: #### C BCA, 32390-7, BMP, 14741-2, 47643-5 #### [facility] ([id number]) [address] [place] [address] 40354 Sodium [Moles/Vol] 136 mmol/L Normal 134-146 [facility] Comment on above: Performed By: #### C BCA, 21727-8, BMP, 67742-4, 83611-3 #### [facility] ([id number]) [address] [place] [address] 47719 Urea nitrogen [Mass/Vol] 15 mg/dL Normal 5-27 [facility] Comment on above: Performed By: #### C BCA, 64770-7, BMP, 23147-5, 07952-4 #### [facility] ([id number]) [address] [place] [address] 53816 MAGNESIUMon 02-01-2024 Magnesium [Mass/Vol] 1.9 mg/dL Normal 1.8-2.6 [facility] Comment on above: Performed By: #### C BCA, 17856-9, BMP, 80289-3, 96345-9 #### [facility] ([id number]) [address] [place] [address] 68794 TROPONIN Ion 02-01-2024 Troponin I.cardiac [Mass/Vol] 0.04 ng/mL Normal 0.00-0.04 [facility] Comment on above: Performed By: #### C BCA, 84826-7, BMP, 50043-3, 62689-6 #### [facility] ([id number]) [address] [place] [address] 51265 XR CHEST 2 VWSon 02-01-2024 XR CHEST [...] Barnard MD on 02/01/2024 12:51 PM Normal [facility] Outside Recordson 01-27-2024 Outside Records [id number] #1.00OTGTIFF Normal [facility] AFB CULTURE(CONCENTRATED)on 01-26-2024 Mycobacterium sp identified Org specific cx Nom (Unsp spec) AFB SMEAR NO ACID FAST BACILLI (CONCENTRATED SMEAR) CULTURE RESULTS NO ACID FAST BACILLI ISOLATED IN 8 WEEKS Normal [facility] Comment on above: Performed By: #### 5 43-9 #### [facility] ([id number]) [address], [address] [place] [address] AND DIFFon 2023 BODY FLUID COMMENT Interpreta tion-------- Normal [facility] Comment on above: Result Comment: Refe rence values for this fluid type are undefined, as fluid accumulation is considered abnormal. Performed By: #### B FCT #### [facility] ([id number]) [address], [address] [place] [address] FLUID CLARITY HAZY Normal [facility] Comment on above: Performed By: #### B FCT #### [facility] ([id number]) [address], [address] [place] [address] FLUID COLOR COLORLESS Normal [facility] Comment on above: Performed By: #### B FCT #### [facility] ([id number]) [address], [address] [place] [address] FLUID NEUTROPHILS 98 % Normal [facility] Comment on above: Performed By: #### B FCT #### [facility] ([id number]) [address], [address] [place] [address] 42 /uL Normal [facility] Comment on above: Performed By: #### B FCT #### [facility] ([id number]) [address], [address] [place] [address] FLUID SPECIMEN TYPE BRONCHOALVEOLAR LAVAGE Normal [facility] Comment on above: Performed By: #### B FCT #### [facility] ([id number]) [address], [address] [place] [address] MACROPHAGES 2 % Normal [facility] Comment on above: Performed By: #### B FCT #### [facility] ([id number]) [address] [place] [address], [address] [place] [address] 2180 /uL Normal [facility] Comment on above: Performed By: #### B FCT #### [facility] ([id number]) [address] [place] [address], [address] [place] [address] Cytologyon 01-26-2024 Cytology Normal [facility] Comment on above: Result Comment: [facility] [address] [place] [address] Cytology Consultation Patient Name:JAZZMINE PATEL:1950 (Age: 73)Gender:FTaken:01/26/2024eported:02/02/2024 15:31Physician(s):EILEEN FONSECA DO ([phone])Copy To: Rec. #:[id number]: #[id number] Final Cytologic Diagnosis Bronchoalveolar lavage, lingula: Atypical cells are present. cjb/02/02/2024 Interpretation performed at [facility], [address] [place] [address], License number: [id number].Electronically Signed Out By Breonna Molina MD Clinical History Langular obstruction and chronic cough. Gross Description Received was 20mL of cloudy colorless fluid unfixed labeled as Homler, BAL, lingula . CytoLyt added in lab. Specimen placed in formalin at 17:00 and had a total fixation time of 8 hours. Source of Specimen Bronchoalveolar lavage, lingula Cell block for Non-winch operator (M), Level 2 H&E, Non BATCH TESTER ThinPrep Fee Code(s): 1; 25836, 67070 FUNGAL CULTUREon 01-26-2024 Fungus identified Cx Nom (Unsp spec) FUNGAL SMEAR NO FUNGAL ELEMENTS SEEN ON CONCENTRATED SMEAR CULTURE RESULTS NO FUNGUS ISOLATED AFTER 4 WEEKS Normal [facility] Comment on above: Performed By: #### 5 80-1 #### [facility] ([id number]) [address] [place] [address], [address] [place] [address] Glucose Glucometer (BldC) [M ass/Vol]on 01-26-2024 Glucose [Mass/Vol] 71 mg/dL Normal 65-99 [facility] Glucose [Mass/Vol] 73 mg/dL Normal 65-99 [facility] LOWER RESPIRATORY CULTUREon 01-26-2024 Bacteria identified Respiratory [...] endocarditis). PENICILLIN(IV,nonmen ing.) S 1 F Susceptible [facility] Comment on above: Performed By: #### 6 24-7 #### [facility] ([id number]) [address] [place] [address], [address] [place] [address] Surgical Pathologyon 024 Surgical Pathology Normal [facility] Comment on above: Result Comment: [facility] [address] [place] [address] Surgical Pathology Consultation Patient Name:JAZZMINE PATEL:1950 (Age: 73)Gender:FTaken:4Reported:02/02/2024hysician(s):EILEEN FONSECA DO ([phone])Copy To: Rec. #:[id number]: #[id number] Final Pathologic Diagnosis Endobronchial lesion, lingula: AT [...] be rule out. Report Electronically Signed Out cjb/4Cniesha Molina MD Interpretation performed at [facility], [address] [place] [address], License number: [id number]. Clinical History Lingular obstruction and chronic cough. Gross Description Received in formalin labeled AMANDA endobronchial lesion, lingula are multiple thurston bits of soft tissue, aggregating to 0.9 x 0.1 x 0.1 cm. Filtered and submitted in a single cassette. (1, ns, X40-63120, m5) MG mj/01/26/2024SSI Specimen(s) Received Endobronchial lesion, lingula Fee Codes(s): 1; 62286, 12393, 30658(3) BASIC METABOLIC PANLon 01-24 Anion gap [Moles/Vol] 12 mmol/L Normal 5-15 [facility] Comment on above: Performed By: #### C BCA, 77105-5, BMP, 67277-9, 55313-4 #### [facility] ([id number]) [address] [place] [address], [place] [address] Calcium [Mass/Vol] 7.4 mg/dL Low 8.5-10.5 [facility] Comment on above: Performed By: #### C BCA, 01884-1, BMP, 88264-3, 82266-1 #### [facility] ([id number]) [address] [place] [address] 57566 Chloride [Moles/Vol] 101 mmol/L Normal 98-109 [facility] Comment on above: Performed By: #### C BCA, 97159-8, BMP, 11108-9, 39092-4 #### [facility] ([id number]) [address] [place] [address] 03694 CO2 [Moles/Vol] 29 mmol/L Normal 22-32 [facility] Comment on above: Performed By: #### C BCA, 69571-7, BMP, 62174-7, 72518-7 #### [facility] ([id number]) [address] [place] [address] 75475 Creatinine [Mass/Vol] 0.82 mg/dL Normal 0.40-1.00 [facility] Comment on above: Result Comment: METH OD TRACEABLE TO IDMS STANDARD Performed By: #### C BCA, 99548-3, BMP, 78678-1, 43824-7 #### [facility] ([id number]) [address] [place] [address] 01691 GFR/1.73 sq M.predicted among non-blacks MDRD (S/P/Bld) [Vol rate/Area] 76 mL/min/{1.73_m2} Normal >59 [facility] Comment on above: Result Comment: Reported eGFR is based on the CKD-EPI 2020 equation that does not use a race coefficient. Performed By: #### C BCA, 48964-9, BMP, 47614-5, 32560-1 #### [facility] ([id number]) [address] [place] [address] 00128 Glucose [Mass/Vol] 112 mg/dL High 65-99 [facility] Comment on above: Performed By: #### C BCA, 71836-8, BMP, 24398-6, 59090-9 #### [facility] ([id number]) [address] [place] [address] 41607 Potassium [Moles/Vol] 3.6 mmol/L Normal 3.5-5.0 [facility] Comment on above: Performed By: #### Neymar BCA, 06546-9, BMP, 37207-4, 99417-9 #### [facility] ([id number]) [address] [place] [address] 58989 Sodium [Moles/Vol] 142 mmol/L Normal 134-146 [facility] Comment on above: Performed By: #### Neymar BCA, 95197-1, BMP, 17743-5, 13137-0 #### [facility] ([id number]) [address] [place] [address] 22453 Urea nitrogen [Mass/Vol] 16 mg/dL Normal 5-27 [facility] Comment on above: Performed By: #### C BCA, 32627-2, BMP, 46632-3, 90750-6 #### [facility] ([id number]) [address] [place] [address] 89414 CBC AND AUTO DIFFon 01-25-20 24 ABSOLUTE BASOPHIL 0.1 X10E9/L Normal 0.0-0.2 [facility] Comment on above: Performed By: #### C BCA, 51132-1, BMP, 85747-5, 01404-0 #### [facility] ([id number]) [address] [place] [address] 81618 ABSOLUTE NEUTROPHIL 4.3 X10E9/L Normal 1.5-6.6 [facility] Comment on above: Performed By: #### Neymar BCA, 63319-3, BMP, 41044-3, 19189-6 #### [facility] ([id number]) [address] [place] [address] 53620 Basophils/100 WBC (Bld) 1.4 % Normal [facility] Comment on above: Performed By: #### C JORGE, 90915-5, BMP, 61622-7, 91948-6 #### [facility] ([id number]) [address] [place] [address] 67545 Eosinophils (Bld) [#/Vol] 0.1 10*3/uL Normal 0.0-0.4 [facility] Comment on above: Performed By: #### C JORGE, 98456-8, BMP, 98087-2, 52249-9 #### [facility] ([id number]) [address] [place] [address] 56101 Eosinophils/100 WBC (Bld) 0.8 % Normal [facility] Comment on above: Performed By: #### Neymar PATEL, 57462-9, BMP, 88374-6, 57685-4 #### [facility] ([id number]) [address] [place] [address] 02026 Erythrocyte distribution width (RBC) [Ratio] 14.0 % Normal 11.5-15.0 [facility] Comment on above: Performed By: #### Neymar PATEL, 88789-9, BMP, 61003-3, 86282-1 #### [facility] ([id number]) [address] [place] [address] 63866 Hematocrit (Bld) [Volume fraction] 41.3 % Normal 35-47 [facility] Comment on above: Performed By: #### Neymar PATEL, 50336-5, BMP, 57225-0, 80717-8 #### [facility] ([id number]) [address] [place] [address] 34218 Hemoglobin (Bld) [Mass/Vol] 14.2 g/dL Normal 11.7-15.5 [facility] Comment on above: Performed By: #### Neymar PATEL, 67183-6, BMP, 10067-1, 12421-1 #### [facility] ([id number]) [address] [place] [address] 40760 Lymphocytes (Bld) [#/Vol] 2.0 10*3/uL Normal 1.0-3.5 [facility] Comment on above: Performed By: #### C BCA, 09890-0, BMP, 06691-5, 15103-0 #### [facility] ([id number]) [address] [place] [address] 81098 Lymphocytes/100 WBC (Bld) 29.5 % Normal [facility] Comment on above: Performed By: #### C BCA, 77478-7, BMP, 16734-1, 52476-9 #### [facility] ([id number]) [address] [place] [address] 07140 MCH (RBC) [Entitic mass] 30.8 pg Normal 27-34 [facility] Comment on above: Performed By: #### C BCA, 48194-0, BMP, 53858-2, 05252-9 #### [facility] ([id number]) [address] [place] [address] 76828 MCHC (RBC) [Mass/Vol] 34.5 g/dL Normal 32-36 [facility] Comment on above: Performed By: #### C BCA, 64110-3, BMP, 14481-2, 43851-6 #### [facility] ([id number]) [address] [place] [address] 18971 MCV (RBC) [Entitic vol] 89 fL Normal 80-100 [facility] Comment on above: Performed By: #### C BCA, 26071-0, BMP, 59663-6, 25511-9 #### [facility] ([id number]) [address] [place] [address] 79540 Monocytes (Bld) [#/Vol] 0.4 10*3/uL Normal 0-0.9 [facility] Comment on above: Performed By: #### Neymar PATEL, 34899-4, BMP, 51382-2, 90911-4 #### [facility] ([id number]) [address] [place] [address] 32060 Monocytes/100 WBC (Bld) 5.6 % Normal [facility] Comment on above: Performed By: #### Neymar BCA, 75679-6, BMP, 48441-6, 74646-9 #### [facility] ([id number]) [address] [place] [address] 49085 Neutrophils/100 WBC (Bld) 62.7 % Normal [facility] Comment on above: Performed By: #### Neymar PATEL, 24064-4, BMP, 77488-7, 78807-0 #### [facility] ([id number]) [address] [place] [address] 82843 Platelet mean volume (Bld) [Entitic vol] 8.8 fL Normal 7-12 [facility] Comment on above: Performed By: #### Neymar PATEL, 00287-3, BMP, 06934-4, 31310-7 #### [facility] ([id number]) [address] [place] [address] 53735 Platelets (Bld) [#/Vol] 230 10*3/uL Normal 150-450 [facility] Comment on above: Performed By: #### Neymar BCA, 65488-0, BMP, 06760-6, 27464-5 #### [facility] ([id number]) [address] [place] [address] 08454 RBC COUNT 4.62 X10E12/L Normal 3.80-5.20 [facility] Comment on above: Performed By: #### Neymar PATEL, 84488-8, BMP, 39126-9, 70112-8 #### [facility] ([id number]) [address] [place] [address] 03990 WBC (Bld) [#/Vol] 6.9 10*3/uL Normal 4.0-11.0 [facility] Comment on above: Performed By: #### C JORGE, 88905-6, BMP, 48837-1, 14170-9 #### [facility] ([id number]) [address] [place] [address] 89887 HGB A1C (GLYCO-HGB)on 2023 Glucose [Mass/Vol] 146 mg/dL Normal [facility] Comment on above: Performed By: #### C JORGE, 19824-0, BMP, 08256-7, 59829-7 #### [facility] ([id number]) [address] [place] [address] 53066 HbA1c (Bld) [Mass fraction] 6.7 % High 4.4-5.6 [facility] Comment on above: Result Comment: NOTE ADA Guidelines Result HgbA1c Normal : less than 5.7 % Prediabetes : 5.7 % to 6.4 % Diabetes : > 6.4 % Use with caution in patients with abnormal hemoglobin variants as the half-life of red blood cells and in vivo glycation rates are affected. Performed By: #### C JORGE, 61814-3, DMITRY, 34651-8, 52729-5 #### [facility] ([id number]) [address] [place] [address] 99028 Lipid 1996 panelon Cholesterol [Mass/Vol] 97 mg/dL Low 150-200 Pr [facility] Comment on above: Performed By: #### C JORGE, 14920-5, BMP, 36855-5, 22503-4 #### [facility] ([id number]) [address] [place] [address] 92635 Cholesterol in HDL [Mass/Vol] 44 mg/dL Normal >39 [facility] Comment on above: Result Comment: HDL <40 mg/dL - High Risk HDL > or = 40mg/dL- Desirable HDL >60 mg/dL - Negative Risk Performed By: ###Lily Blackmon BCA, 78699-0, BMP, 41164-0, 64329-4 #### [facility] ([id number]) [address] [place] [address] 63172 Cholesterol in LDL [Mass/Vol] 41 mg/dL Normal <130 [facility] Comment on above: Result Comment: LDL <100 mg/dL - Desirable LDL >160 mg/dL - High Risk Performed By: ###Lily Blackmon BCA, 69861-4, BMP, 58989-5, 33099-1 #### [facility] ([id number]) [address] [place] [address] 73012 Cholesterol in VLDL [Mass/Vol] 12 mg/dL Normal 0-30 [facility] Comment on above: Performed By: ###Lily Blackmon BCA, 57049-4, BMP, 64420-5, 78764-7 #### [facility] ([id number]) [address] [place] [address] 55904 CHOLESTEROL:HDL 2.2 Normal 1.0-5.0 [facility] Comment on above: Performed By: ##Kamila Blackmon BCA, 71480-2, BMP, 73368-2, 98912-0 #### [facility] ([id number]) [address] [place] [address] 87040 Triglyceride [Mass/Vol] 62 mg/dL Normal 27-150 [facility] Comment on above: Performed By: #### Neymar PATEL, 55568-4, BMP, 53057-5, 54386-6 #### [facility] ([id number]) [address] [place] [address] 06775 PROTIME AND INRon 01-25-2024 INR Coag (PPP) [Relative time] 1.1 {INR} Normal 0.8-1.1 [facility] Comment on above: Performed By: #### P INR, 61250-2 #### [facility] ([id number]) [address] [place] [address] 07907 PT Coag (PPP) [Time] 13.1 s Normal 9.8-13.2 [facility] Comment on above: Result Comment: NEW REFERENCE RANGE Performed By: #### P INR, 98519-6 #### [facility] ([id number]) [address] [place] [address] 98389 THYROID PROFILEon 01-25-2024 Free T4 [Mass/Vol] 1.41 ng/dL Normal 0.61-1.60 [facility] Comment on above: Performed By: #### C JORGE, 75768-2, BMP, 17897-1, 67782-3 #### [facility] ([id number]) [address] [place] [address] 07087 TSH 0.22 uIU/mL Low 0.49-4.67 [facility] Comment on above: Performed By: #### C JORGE, 53563-8, BMP, 71518-2, 75670-4 #### [facility] ([id number]) [address] [place] [address] 98633 aPTT Coag (PPP) [Time]on aPTT Coag (Bld) [Time] 36 s Normal 26-37 [facility] Comment on above: Result Comment: NEW REFERENCE RANGE Performed By: #### P INR, 03680-7 #### [facility] ([id number]) [address] [place] [address] CHEST WO CONTon CT CHEST WO [...] Markham MD on 12/03/2023 11:02 AM Normal [facility] BASIC METABOLIC PANLon 10-19 Anion gap [Moles/Vol] 11 mmol/L Normal 5-15 [facility] Comment on above: Performed By: #### C BCA, 25618-9, BMP, 68216-4, 63827-6 #### [facility] ([id number]) [address] [place] [address] 30250 Calcium [Mass/Vol] 7.2 mg/dL Low 8.5-10.5 [facility] Comment on above: Performed By: #### C BCA, 43774-7, BMP, 89523-1, 86878-6 #### [facility] ([id number]) [address] [place] [address] 44330 Chloride [Moles/Vol] 99 mmol/L Normal 98-109 [facility] Comment on above: Performed By: #### C BCA, 03142-4, BMP, 34738-1, 03759-7 #### [facility] ([id number]) [address] [place] [address] 46618 CO2 [Moles/Vol] 30 mmol/L Normal 22-32 [facility] Comment on above: Performed By: #### C BCA, 74614-7, BMP, 50992-1, 64619-4 #### [facility] ([id number]) [address] [place] [address] 85593 Creatinine [Mass/Vol] 1.00 mg/dL Normal 0.40-1.00 [facility] Comment on above: Result Comment: METH OD TRACEABLE TO IDMS STANDARD Performed By: #### C JORGE, 74021-9, BMP, 29154-2, 79256-1 #### [facility] ([id number]) [address] [place] [address] 86381 GFR/1.73 sq M.predicted among non-blacks MDRD (S/P/Bld) [Vol rate/Area] 61 mL/min/{1.73_m2} Normal >59 [facility] Comment on above: Result Comment: Reported eGFR is based on the CKD-EPI 2020 equation that does not use a race coefficient. Performed By: #### C BCA, 30049-2, BMP, 95432-1, 89230-0 #### [facility] ([id number]) [address] [place] [address] 89724 Glucose [Mass/Vol] 150 mg/dL High 65-99 [facility] Comment on above: Performed By: #### C BCA, 64011-2, BMP, 44635-3, 51234-4 #### [facility] ([id number]) [address] [place] [address] 39932 Potassium [Moles/Vol] 4.2 mmol/L Normal 3.5-5.0 [facility] Comment on above: Result Comment: SPEC IMEN HEMOLYZED, RESULTS INCREASED Performed By: #### C BCA, 79796-2, BMP, 14328-7, 09979-6 #### [facility] ([id number]) [address] [place] [address] 36933 Sodium [Moles/Vol] 140 mmol/L Normal 134-146 [facility] Comment on above: Performed By: #### C BCA, 01531-5, BMP, 37223-8, 18010-4 #### [facility] ([id number]) [address] [place] [address] 20309 Urea nitrogen [Mass/Vol] 14 mg/dL Normal 5-27 [facility] Comment on above: Performed By: #### Neymar PATEL, 84759-3, BMP, 05332-8, 58167-2 #### [facility] ([id number]) [address] [place] [address] 89093 CBC AND AUTO DIFFon 10-19- 23 ABSOLUTE BASOPHIL 0.1 X10E9/L Normal 0.0-0.2 [facility] Comment on above: Performed By: #### Neymar BCA, 89789-1, BMP, 48712-4, 81229-9 #### [facility] ([id number]) [address] [place] [address] 02656 ABSOLUTE NEUTROPHIL 8.2 X10E9/L High 1.5-6.6 [facility] Comment on above: Performed By: #### C BCA, 32392-1, BMP, 03677-0, 08471-6 #### [facility] ([id number]) [address] [place] [address] 80751 Basophils/100 WBC (Bld) 0.9 % Normal [facility] Comment on above: Performed By: #### Neymar BCA, 03705-2, BMP, 87007-1, 41372-8 #### [facility] ([id number]) [address] [place] [address] 96922 Eosinophils (Bld) [#/Vol] 0.1 10*3/uL Normal 0.0-0.4 [facility] Comment on above: Performed By: #### Neymar PATEL, 17114-4, BMP, 54037-1, 69560-3 #### [facility] ([id number]) [address] [place] [address] 02643 Eosinophils/100 WBC (Bld) 1.0 % Normal [facility] Comment on above: Performed By: #### Neymar PATEL, 89553-5, BMP, 22363-5, 35614-7 #### [facility] ([id number]) [address] [place] [address] 47246 Erythrocyte distribution width (RBC) [Ratio] 13.6 % Normal 11.5-15.0 [facility] Comment on above: Performed By: #### Neymar PATEL, 27376-2, BMP, 41587-9, 25905-4 #### [facility] ([id number]) [address] [place] [address] 82415 Hematocrit (Bld) [Volume fraction] 42.1 % Normal 35-47 [facility] Comment on above: Performed By: #### Neymar PATEL, 62369-2, BMP, 94190-8, 57568-0 #### [facility] ([id number]) [address] [place] [address] 07687 Hemoglobin (Bld) [Mass/Vol] 14.4 g/dL Normal 11.7-15.5 [facility] Comment on above: Performed By: #### Neymar PATEL, 16905-1, BMP, 92334-8, 04914-8 #### [facility] ([id number]) [address] [place] [address] 85242 Lymphocytes (Bld) [#/Vol] 1.7 10*3/uL Normal 1.0-3.5 [facility] Comment on above: Performed By: #### Neymar PATEL, 64560-2, BMP, 24584-5, 33749-1 #### [facility] ([id number]) [address] [place] [address] 44995 Lymphocytes/100 WBC (Bld) 16.0 % Normal [facility] Comment on above: Performed By: #### Neymar PATEL, 46742-3, BMP, 57930-7, 92656-5 #### [facility] ([id number]) [address] [place] [address] 74555 MCH (RBC) [Entitic mass] 31.1 pg Normal 27-34 [facility] Comment on above: Performed By: #### Neymar PATEL, 49269-4, BMP, 69964-0, 05993-5 #### [facility] ([id number]) [address] [place] [address] 84778 MCHC (RBC) [Mass/Vol] 34.1 g/dL Normal 32-36 [facility] Comment on above: Performed By: #### Neymar PATEL, 69524-3, BMP, 30195-9, 63188-1 #### [facility] ([id number]) [address] [place] [address] 98553 MCV (RBC) [Entitic vol] 91 fL Normal 80-100 [facility] Comment on above: Performed By: #### Neymar PATEL, 20749-4, BMP, 64791-5, 96717-7 #### [facility] ([id number]) [address] [place] [address] 11478 Monocytes (Bld) [#/Vol] 0.7 10*3/uL Normal 0-0.9 [facility] Comment on above: Performed By: #### Neymar PATEL, 65359-9, BMP, 98445-9, 81090-7 #### [facility] ([id number]) [address] [place] [address] 76415 Monocytes/100 WBC (Bld) 6.3 % Normal [facility] Comment on above: Performed By: #### Neymar PATEL, 34247-1, BMP, 06289-9, 79931-7 #### [facility] ([id number]) [address] [place] [address] 25333 Neutrophils/100 WBC (Bld) 75.8 % Normal [facility] Comment on above: Performed By: #### Neymar BCA, 18239-0, BMP, 91819-5, 37133-2 #### [facility] ([id number]) [address] [place] [address] 72912 Platelet mean volume (Bld) [Entitic vol] 8.3 fL Normal 7-12 [facility] Comment on above: Performed By: #### Nemyar PATEL, 57112-2, BMP, 14581-8, 08204-4 #### [facility] ([id number]) [address] [place] [address] 03727 Platelets (Bld) [#/Vol] 308 10*3/uL Normal 150-450 [facility] Comment on above: Performed By: #### Neymar PATEL, 83254-0, BMP, 82454-6, 62081-3 #### [facility] ([id number]) [address] [place] [address] 81531 RBC COUNT 4.63 X10E12/L Normal 3.80-5.20 [facility] Comment on above: Performed By: #### Neymar BCA, 60367-4, BMP, 97575-3, 98937-4 #### [facility] ([id number]) [address] [place] [address] 72028 WBC (Bld) [#/Vol] 10.8 10*3/uL Normal 4.0-11.0 [facility] Comment on above: Performed By: #### Neymar PATEL, 26757-9, BMP, 70981-8, 84973-5 #### [facility] ([id number]) [address] [place] [address] 20624 Fibrin D-dimer DDU (PPP) [Ma ss/Vol]on 10-19-2023 D DIMER 206 ng/mL DDU Normal <255 [facility] Comment on above: Result Comment: Results <255 ng/mL DDU: The presence of a VTE can safely be excluded with a negative D-Dimer result and Wells score. A negative result doesn't exclude the possibility of DIC. The test be repeated along with other diagnostic tests if the patient's symptoms persist or worsen. [email or web address] Performed By: #### C BCA, 04268-2, BMP, 53307-6, 25880-6 #### [facility] ([id number]) [address] [place] [address] 30213 Natriuretic peptide B [Mass/ Vol]on 10-19-2023 Natriuretic peptide B (Bld) [Mass/Vol] 57 pg/mL Normal <100.0 [facility] Comment on above: Performed By: #### C BCA, 66445-6, BMP, 46405-9, 72446-7 #### [facility] ([id number]) [address] [place] [address] 38257 SARS/FLU A+B/RSV by NAAT/Mol ecularon 10-19-2023 SARS/FLU [...] operators who are performing tests using either [employer] or [employer] systems and is limited to laboratories that [...] repeat. Fact Sheet for Healthcare Providers: https://www.fda.gov/ media/880957/downloa d Fact Sheet for Patients: https://www.fda.gov/ media/549979/downloa d Normal [facility] Comment on above: Performed By: #### C OVFLR #### [facility] ([id number]) [address] [place] [address] 54567 TROPONIN Ion 10-19-2023 Troponin I.cardiac [Mass/Vol] ng/mL Normal 0.00-0.04 [facility] Comment on above: Performed By: #### C BCA, 78358-6, BMP, 87593-4, 61917-1 #### [facility] ([id number]) [address] [place] [address] 40222 XR CHEST 1 VWon 10-19-2023 XR CHEST [...] Lance Wagner on 10/19/2023 2:00 PM Normal [facility] CREATININEon 08-15-2022 Creatinine [Mass/Vol] 1.10 mg/dL Critically high 0.55-1.02 [facility] Comment on above: Performed By: #### C TRUPTI #### [facility] [address] [address] [address] Becky Gauthier EGFR-AF ENGLISH =60 Normal >=60 [facility] Comment on above: Performed By: #### C TRUPTI #### [facility] [address] [address] [address] Becky Gauthier EGFR-NON AF ENGLISH 49 mL/min/1.73m2 Critically low >=60 [facility] Comment on above: Performed By: #### C TRUPTI #### [facility] [address] [address] [address] Becky Gauthier Basic Metabolic PanelOrdered By: Willie Parra on 02-13-2021 Anion gap [Moles/Vol] 13 mmol/L 9 - 17 mmol/L [employer] Phone: Calcium [Mass/Vol] 7.7 mg/dL Low 8.6 - 10. 4 mg/dL [employer] Phone: Chloride [Moles/Vol] 105 mmol/L 98 - 10 7 mmol/L [employer] Phone: CO2 [Moles/Vol] 24 mmol/L 20 - 31 mmol/L [employer] Phone: Creatinine [Mass/Vol] 1.38 mg/dL High 0.50 - 0.90 mg/dL [employer] Phone: GFR 46 mL/min Low >60 [employer] Phone: GFR Non- 38 mL/min Low >60 [employer] Phone: GFR/1.73 sq M.predicted MDRD (S/P/Bld) [Vol rate/Area] [employer] Phone: Comment on above: Average GFR for 60-6 9 years old: 85 mL/min/1.73sq m Chronic Kidney Disease: <60 mL/min/1.73sq m Kidney failure: <15 mL/min/1.73sq m eGFR calculated using average adult body mass. Additional eGFR calculator available at: http://www.[employer]multiple_crcl_2012.htm GFR/1.73 sq M.predicted MDRD (S/P/Bld) [Vol rate/Area] NOT REPORTED [facility] Phone: Glucose [Mass/Vol] 94 mg/dL 70 - 99 mg/dL [facility] [employer] Phone: Interpretation and review of laboratory results Abnormal [facility] Phone: Potassium [Moles/Vol] 3.6 mmol/L Low 3.7 - 5.3 mmol/L [employer] Phone: Sodium [Moles/Vol] 142 mmol/L 135 - 144 mmol/L [facility] Phone: Urea nitrogen (BldV) [Mass/Vol] 16 mg/dL 8 - 23 mg/dL [employer] Phone: Urea nitrogen/Creatinine (Bld) [Mass ratio] 12 [facility] Work Phone: Basic Metabolic Profon 02-13 (cont.) Normal [facility] Comment on above: Result Comment: Aver age GFR for 60-69 years old: 85 mL/min/1.73sq m Chronic Kidney Disease: <60 mL/min/1.73sq m Kidney failure: <15 mL/min/1.73sq m eGFR calculated using average adult body mass. Additional eGFR calculator available at: http://www.[employer]multiple_crcl_2012.htm Performed By: #### B MP #### [facility] [address] [place] [address] Upkeep Mechanic: Oscar Mane MD Anion gap [Moles/Vol] 13 mmol/L Normal 9-17 [facility] Comment on above: Performed By: #### B MP #### [facility] [address] [place] [address] Upkeep Mechanic: Oscar Mane MD BUN/CRE Ratio 12 Normal 9-20 [facility] Comment on above: Performed By: #### B MP #### [facility] [address] [place] [address] Upkeep Mechanic: Oscar Mane MD Calcium [Mass/Vol] 7.7 mg/dL Low 8.6-10.4 [facility] Comment on above: Performed By: #### B MP #### [facility] [address] [place] [address] Upkeep Mechanic: Oscar Mane MD Chloride [Moles/Vol] 105 mmol/L Normal 98-107 [facility] Comment on above: Performed By: #### B MP #### [facility] [address] [place] [address] Upkeep Mechanic: Oscar Mane MD CO2 [Moles/Vol] 24 mmol/L Normal 20-31 [facility] Comment on above: Performed By: #### B MP #### [facility] [address] [place] [address] Upkeep Mechanic: Oscar Mane MD Creatinine [Mass/Vol] 1.38 mg/dL High 0.50-0.90 [facility] Comment on above: Performed By: #### B MP #### [facility] [address] [place] [address] Upkeep Mechanic: Oscar Mane MD GFR, Amer 46 mL/min Low >60 [facility] Comment on above: Performed By: #### B MP #### [facility] [address] [place] [address] Upkeep Mechanic: Oscar Mane MD GFR,non Amer 38 mL/min Low >60 [facility] Comment on above: Performed By: #### B MP #### [facility] [address] [place] [address] Upkeep Mechanic: Oscar Mane MD Glucose [Mass/Vol] 94 mg/dL Normal 70-99 [facility] Comment on above: Performed By: #### B MP #### [facility] [address] [place] [address] Upkeep Mechanic: Oscar Mane MD Potassium [Moles/Vol] 3.6 mmol/L Low 3.7-5.3 [facility] Comment on above: Performed By: #### B MP #### [facility] [address] [place] [address] Upkeep Mechanic: Oscar Mane MD Sodium [Moles/Vol] 142 mmol/L Normal 135-144 [facility] Comment on above: Performed By: #### B MP #### [facility] [address] [facility] [place] [address] Upkeep Mechanic: Oscar Mane MD Urea nitrogen [Mass/Vol] 16 mg/dL Normal 8-23 [facility] Comment on above: Performed By: #### B MP #### [facility] [address] [facility] [place] [address] Upkeep Mechanic: Oscar Mane MD Staging: NOT REPORTED Normal [facility] Comment on above: Performed By: #### B MP #### [facility] [address] [facility] [place] [address] Upkeep Mechanic: Oscar Mane MD EKG 12 leadOrdered By: Willie Parra on 02-13-2021 Atrial Rate 69 BPM [employer] Work Phone: P [place] 86 degrees [employer] Phone: P-R Interval 134 ms [employer] Phone: Q-T Interval 444 ms [employer] Phone: QRS Duration 84 ms [employer] Phone: QTc Calculation (Bazett) 475 ms [employer] Phone: R [place] 78 degrees [employer] Phone: T [place] 135 degrees [employer] Phone: Ventricular Rate 69 BPM [employer] Work Phone: Sinus rhythm with marked sinus arrhythmia ST & T wave abnormality, consider anterolateral ischemia Prolonged QT Abnormal ECG No previous ECGs available [employer] Phone: Ros[place], pn Incoming Ekg Results From [facility] - 02/13/2021 8:17 AM EDT Sinus rhythm with marked sinus arrhythmia ST & T wave abnormality, consider anterolateral ischemia Prolonged QT Abnormal ECG No previous ECGs available [facility] Work Phone: BUN + Creatinineon 1 (cont.) Normal [facility] Comment on above: Result Comment: Aver age GFR for 60-69 years old: 85 mL/min/1.73sq m Chronic Kidney Disease: <60 mL/min/1.73sq m Kidney failure: <15 mL/min/1.73sq m eGFR calculated using average adult body mass. Additional eGFR calculator available at: http://www.[employer]multiple_crcl_2012.htm Performed By: #### B UNCRT #### [facility] [address] [facility] [place] [address] Upkeep Mechanic: Oscar Mane MD Creatinine [Mass/Vol] 0.92 mg/dL High 0.50-0.90 [facility] Comment on above: Performed By: #### B UNCRT #### [facility] [address] [facility] [place] [address] Upkeep Mechanic: Oscar Mane MD GFR, Amer >60 Normal >60 [facility] Comment on above: Performed By: #### B UNCRT #### [facility] [address] [place] [address] Upkeep Mechanic: Oscar Mane MD GFR,non Amer >60 Normal >60 [facility] Comment on above: Performed By: #### B UNCRT #### [facility] [address] [facility] [place] [address] Upkeep Mechanic: Oscar Mane MD Urea nitrogen [Mass/Vol] 14 mg/dL Normal 8-23 [facility] Comment on above: Performed By: #### B UNCRT #### [facility] [address] [facility], [place] [id number] Upkeep Mechanic: Oscar Mane MD Staging: NOT REPORTED Normal [facility] Comment on above: Performed By: #### B UNCRT #### [facility] [address] [place], [place] [address] Upkeep Mechanic: Oscar Mane MD BUN + CreatinineOrdered By: Willie Parra on 02-12-2021 Creatinine [Mass/Vol] 0.92 mg/dL High 0.50 - 0.90 mg/dL [employer] Phone: GFR >60 >60 mL/min [employer] Phone: GFR Non- >60 >60 mL/min [facility] [facility] Phone: GFR/1.73 sq M.predicted MDRD (S/P/Bld) [Vol rate/Area] [employer] Phone: Comment on above: Average GFR for 60-6 9 years old: 85 mL/min/1.73sq m Chronic Kidney Disease: <60 mL/min/1.73sq m Kidney failure: <15 mL/min/1.73sq m eGFR calculated using average adult body mass. Additional eGFR calculator available at: http://www.[employer]multiple_crcl_2012.htm GFR/1.73 sq M.predicted MDRD (S/P/Bld) [Vol rate/Area] NOT REPORTED [employer] Phone: Interpretation and review of laboratory results Abnormal [employer] Phone: Urea nitrogen (BldV) [Mass/Vol] 14 mg/dL 8 - 23 mg/dL [employer] Phone: Catheterization and angiogra phy procedure details panelOrdered By: Willie Parra on 02-12-2021 Cardiac Diagnostic + PCI Report Demographics Patient AMANDA Sears Date of Study 02/12/2021 Name Date of 1950 Gender Female Age 70 year(s) Race Room [id number]^YVES Height: 67 inch, 170.18 cm Number Corporate [id number] Weight: 132 pounds, 59.9 kg ID # Patient [id number] BSA: 1.69 m^2 BMI: 20.67 Acct # kg/m^2 MR # [id number] Performing Physician FidelWillie Referring Physician # Assisting Physician Additional Comments [...] branch has a 90% stenosis. 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 [employer] Phone: Roshan, pn Incoming Cardio Results From [facility]/ - 02/12/2021 2:56 PM EDT Cardiac Diagnostic + PCI Report Demographics Patient AMANDA DOVER S Date of Study 02/12/2021 Name Date of 1950 Gender Female Age 70 year(s) Race Room [id number]^FIDEL^WILLIE Height: 67 inch, 170.18 cm Number Corporate [id number] Weight: 132 pounds, 59.9 kg ID # Patient [id number] BSA: 1.69 m^2 BMI: 20.67 Acct # kg/m^2 MR # [id number] Performing Physician Willie Parra Referring Physician # Assisting Physician Additional Comments [...] units. - Heparin (more content not included)... [employer] Phone: POC Glucose FingerstickOrder ed By: Willie Parra on 02-12-2021 Glucose [Mass/Vol] 89 mg/dL 65 - 105 mg/dL [employer] Phone: Glucose [Mass/Vol] 79 mg/dL 65 - 105 mg/dL [employer] Phone: Glucose [Mass/Vol] 100 mg/dL 65 - 105 mg/dL [employer] Phone: Vital Signs Date Time Vital Sign Value Performing Clinician Facility 07-28-2024 13:29-0400 Body height 170.2 cm [facility] Phone: [facility] 07-28-2024 13:29-0400 Body mass index (BMI) [Ratio] 18.78 kg/m2 [facility] Phone: [facility] 07-28-2024 13:29-0400 Body weight 54.39 kg [facility] Phone: [facility] 07-28-2024 13:29-0400 Diastolic blood pressure 66 mm[Hg] Eileen Fonseca DO Work Phone: [facility] 07-28-2024 13:29-0400 Heart rate 91 /min Eileen Fonseca DO Work Phone: [facility] 07-28-2024 13:29-0400 SaO2% (BldA) [Mass fraction] 100 % Eileen Fonseca DO Work Phone: [facility] 07-28-2024 13:29-0400 Systolic blood pressure 106 mm[Hg] Eileen Fonseca DO Work Phone: [facility] 05-17-2024 09:27-0400 Body height 170.18 cm DO Miguel House Work Phone: [facility] 05-17-2024 09:27-0400 Body mass index (BMI) [Ratio] 19.1 kg/m2 DO Miguel House Work Phone: [facility] 05-17-2024 09:27-0400 Body temperature 97.1 [degF] DO Miguel House Work Phone: [facility] 05-17-2024 09:27-0400 Body weight 55.33 kg DO Miguel House Work Phone: [facility] 05-17-2024 09:27-0400 Diastolic blood pressure 73 mm[Hg] DO Miguel House Work Phone: [facility] 05-17-2024 09:27-0400 Heart rate 87 /min DO Miguel House Work Phone: [facility] 05-17-2024 09:27-0400 Respiratory rate 16 /min DO Miguel House Work Phone: [facility] 05-17-2024 09:27-0400 SaO2% (BldA) [Mass fraction] 99 % DO Miguel House Work Phone: [facility] 05-17-2024 09:27-0400 Systolic blood pressure 120 mm[Hg] DO Miguel House Work Phone: [facility] 03-15-2024 10:00-0400 Body temperature 97.6 [degF] DO Miguel House Work Phone: [facility] 03-15-2024 10:00-0400 Body weight 52.61 kg DO Miguel House Work Phone: [facility] 03-15-2024 10:00-0400 Diastolic blood pressure 85 mm[Hg] DO Miguel House Work Phone: [facility] 03-15-2024 10:00-0400 Heart rate 96 /min DO Miguel House Work Phone: [facility] 03-15-2024 10:00-0400 Respiratory rate 20 /min DO Miguel House Work Phone: [facility] 03-15-2024 10:00-0400 SaO2% (BldA) [Mass fraction] 64 % DO Miguel House Work Phone: [facility] 03-15-2024 10:00-0400 Systolic blood pressure 136 mm[Hg] DO Miguel House Work Phone: [facility] 02-24-2024 15:03-0400 Body height 170.18 cm DO Miguel House Work Phone: [facility] 02-24-2024 14:33-0400 Body height 170.18 cm DO Miguel House Work Phone: [facility] 02-24-2024 14:33-0400 Body mass index (BMI) [Ratio] 18.4 kg/m2 DO Miguel House Work Phone: [facility] 02-24-2024 14:33-0400 Body weight 53.52 kg DO Miguel House Work Phone: [facility] 02-24-2024 14:33-0400 Diastolic blood pressure 75 mm[Hg] DO Miguel House Work Phone: [facility] 02-24-2024 14:33-0400 Heart rate 73 /min DO Miguel Brock Work Phone: [facility] 02-24-2024 14:33-0400 Respiratory rate 18 /min DO Miguel Brock Work Phone: [facility] 02-24-2024 14:33-0400 SaO2% (BldA) [Mass fraction] 97 % DO Miguel Brock Work Phone: [facility] 02-24-2024 14:33-0400 Systolic blood pressure 123 mm[Hg] DO Miguel Brock Work Phone: [facility] 01-07-2024 11:27-0400 Body height 170.2 cm Eileen Fonseca DO Work Phone: [facility] [employer] [facility] 01-07-2024 11:27-0400 Body mass index (BMI) [Ratio] 18.14 kg/m2 Eileen Fonseca DO Work Phone: [facility] 01-07-2024 11:27-0400 Body weight 52.53 kg Eileen Fonseca DO Work Phone: [facility] 01-07-2024 11:27-0400 Diastolic blood pressure 65 mm[Hg] Eileen Fonseca DO Work Phone: [facility] 01-07-2024 11:27-0400 Heart rate 71 /min Eileen Fonseca DO Work Phone: [facility] [employer] 01-07-2024 11:27-0400 SaO2% (BldA) [Mass fraction] 93 % Eileen Fonseca DO Work Phone: [facility] [employer] 01-07-2024 11:27-0400 Systolic blood pressure 109 mm[Hg] Eileen Fonseca DO Work Phone: [facility] [employer] [facility] 02-13-2021 11:04-0400 Body temperature 98.29 [degF] Willie Parra MD Work Phone: [employer] Work Phone: 02-13-2021 11:04-0400 Diastolic blood pressure 61 mm[Hg] Willie Parra MD Work Phone: [employer] Work Phone: 02-13-2021 11:04-0400 Heart rate 81 /min Willie Parra MD Work Phone: [employer] Work Phone: 02-13-2021 11:04-0400 Respiratory rate 20 /min Willie Parra MD Work Phone: [employer] Work Phone: 02-13-2021 11:04-0400 SaO2% (BldA) [Mass fraction] 93 % Willie Parra MD Work Phone: [employer] Work Phone: 02-13-2021 11:04-0400 Systolic blood pressure 119 mm[Hg] Willie Parra MD Work Phone: [employer] Work Phone: 02-12-2021 11:29-0400 Body height 170.2 cm Willie Parra MD Work Phone: [employer] Work Phone: 02-12-2021 11:29-0400 Body mass index (BMI) [Ratio] 20.75 kg/m2 Willie Parra MD Work Phone: [employer] Work Phone: 02-12-2021 11:29-0400 Body weight 60.1 kg Willie Parra MD Work Phone: [employer] Work Phone: Encounters Encounter Date Encounter Type Care Provider Facility Start: 07-28-2024 End: 07-28-2024 ambulatory EILEEN FONSECA [facility] Start: 07-28-2024 End: 07-28-2024 Office outpatient visit 25 minutes Eileen Fonseca DO Work Phone: [facility] Comment on above: Moderate COPD (chron ic obstructive pulmonary disease) ([facility]) (Primary Dx); Tobacco abuse; 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; Primary lung adenocarcinoma, left ([place]) Start: 07-13-2024 ambulatory MIGUEL BROCK [facility] Start: 07-12-2024 Registered Recurring DO Saad sears House Work Phone: [facility] Work Phone: Start: 07-12-2024 End: 07-12-2024 ambulatory DO Miguel Brock Work Phone: [facility] Work Phone: Start: 07-12-2024 End: 07-12-2024 Patient encounter procedure DO Miguel Brock Work Phone: [facility] Work Phone: Start: 05-17-2024 End: 05-17-2024 ambulatory DO Miguel Brock Work Phone: [facility] Work Phone: Start: 05-17-2024 End: 05-17-2024 Patient encounter procedure DO Miguel Brock Work Phone: [facility] Work Phone: Start: 05-17-2024 Registered Recurring DO Saad Brock Work Phone: [facility] Work Phone: Start: 05-05-2024 End: 05-05-2024 [facility] Start: 05-02-2024 Non-patient / Non-visit DO Arielle culver House Work Phone: [facility] Work Phone: Start: 04-25-2024 End: 04-28-2024 Emergency department patient visit SYL AMARO [facility] Start: 04-25-2024 End: 04-27-2024 ambulatory MIGUEL P HOUSE [facility] Start: 04-20-2024 End: 04-20-[address] [facility] Start: 04-20-2024 End: 04-21-[address] [facility] Start: 04-19-2024 Non-patient / Non-visit DO Arielle rles House Work Phone: [facility] Work Phone: Start: 04-18-2024 End: 04-19-2024 Emergency department [facility] Start: 04-12-2024 Non-patient / Non-visit DO Arielle rles House Work Phone: [facility] Work Phone: Start: 04-04-2024 Non-patient / Non-visit DO Arielle rles House Work Phone: [facility] Work Phone: Start: 03-23-2024 Non-patient / Non-visit DO Arielle rles House Work Phone: [facility] Work Phone: Start: 03-22-2024 End: 03-22-2024 ambulatory DO MIGUEL P HOUSE Facility:[facility] Start: 03-15-2024 Non-patient / Non-visit DO Arielle rles House Work Phone: [facility] Work Phone: Start: 03-15-2024 Registered Recurring DO Saad s House Work Phone: [facility] Work Phone: Start: 03-15-2024 End: 03-15-2024 ambulatory DO Miguel House Work Phone: [facility] Work Phone: Start: 03-15-2024 End: 03-15-2024 Patient encounter procedure DO Miguel Brock Work Phone: [facility] Work Phone: Start: 03-14-2024 End: 03-14-2024 ambulatory [facility] Facility:[facility] Start: 03-03-2024 End: 03-03-2024 ambulatory [facility] Start: 03-02-2024 End: 03-02-2024 [facility] Start: 03-01-2024 End: 03-02-2024 Evaluation and management of inpatient [facility] Start: 02-26-2024 End: 02-26-[address] [facility] Start: 02-24-2024 ambulatory Urszula Najerai lity:[facility] Start: 02-24-2024 End: 02-24-2024 Patient encounter procedure DO Miguel Brock Work Phone: [facility] Work Phone: Start: 02-23-2024 End: 02-23-2024 ambulatory [facility] Start: 02-12-2024 End: 02-12-[address] [facility] Start: 02-05-2024 End: 02-24-2024 ambulatory [facility] Start: 02-01-2024 End: 02-02-2024 Emergency department patient visit [facility] Start: 01-28-2024 Orders Only Eileen lopez DO [facility] Start: 01-27-2024 End: 01-27-2024 Evaluation and management of inpatient [facility]ELIX [facility] Start: 01-26-2024 End: 01-27-2024 Evaluation and management of inpatient [facility] Start: 01-25-2024 End: 01-25-[address] [facility] Start: 01-25-2024 Encounter for other preprocedural examination MIGUEL BROCK [facility] Start: 01-07-2024 Documentation procedure [facility] Start: 01-07-2024 End: 01-07-2024 Office outpatient visit 25 minutes [facility] DO Work Phone: [facility] Comment on above: Moderate COPD (chron ic obstructive pulmonary disease) ([facility]) (Primary Dx); Pulmonary nodule; Hmuie-6-gciegjhlphq deficiency ([facility]); Dyspnea on exertion; Abnormal CT of the chest; Tobacco abuse Start: 01-07-2024 End: 01-07-2024 ambulatory [facility] Start: 12-31-2023 Telephone encounter Eileen reich DO Work Phone: [facility] Start: 12-07-2023 Telephone encounter [facility] Start: 12-02-2023 End: 12-02-[address] [facility] Start: 11-18-2023 End: 11-18-2023 ambulatory MIGUEL BROCK Facility:[facility] Start: 11-12-2023 End: 11-12-2023 ambulatory MIGUEL BROCK Facility:[facility] Start: 10-21-2023 Telephone encounter [facility] Start: 10-19-2023 End: 10-20-2023 Emergency department patient visit [facility] Start: 10-19-2023 End: 10-20-2023 [facility] Start: 08-10-2023 End: 08-10-2023 ambulatory MIGUEL BROCK Facility:[facility] Start: 02-17-[address] MIGUEL BROCK Facili ty:[facility] Start: 08-15-2022 End: 10-22-[address] MIGUEL BROCK Facility:[facility] Start: 02-12-2021 End: 02-13-2021 ambulatory WILLIE PARRA [facility] Start: 02-12-2021 End: 02-13-2021 Subsequent hospital visit by physician Willie Parra MD Work Phone: [facility] Comment on above: Abnormal stress [...] 02-13-2021 Basic metabolic panel calcium total Willie Parra MD Work Phone: Start: 02-12-2021 Glucose blood reagent strip Willie Parra MD Work Phone: Start: 02-12-2021 Ecg routine ecg w/least 12 lds w/i&r Willie Parra MD Work Phone: Start: 02-12-2021 Glucose blood reagent strip Willie Parra MD Work Phone: Start: 02-12-2021 End: 02-12-2021 Cardiac catheterization Willie Parra MD Work Phone: Start: 02-12-2021 End: 02-12-2021 Glucose blood reagent strip Willie Parra MD Work Phone: Start: 08-23-2020 History of thyroidectomy S/P total thyroidectomy Angie dutton LPN Plan of Treatment Date Care Activity Detail Author Start: 06-04-2032 DTaP,Tdap and Td Vaccines (3 - Td or Tdap) DTaP,Tdap and Td Vaccines (3 - Td or Tdap) [facility] Start: 09-11-2028 DTaP/Tdap/Td vaccine (2 - Td) DTaP/Tdap/Td vaccine (2 - Td) [employer] [facility] Work Phone: Start: 12-11-2026 Screening for malign ant neoplasm of colon Colonoscopy [facility] Start: 07-28-2025 Adult BMI Screening Adult BMI Screen ing [facility] Start: 07-28-2025 Tobacco Screening Tobacco Screening [facility] Start: 01-25-2025 Tobacco Screening Tobacco Screening [facility] Start: 01-06-2025 Adult BMI Screening Adult BMI Screen ing [facility] Start: 01-06-2025 Tobacco Screening Tobacco Screening [facility] Start: 11-03-2024 End: 11-03-2024 Patient encounter procedure 11/03/2024 1:30 PM EST Office Visit [facility] [address] [place] [address] Eileen Fonseca, DO [address] [address] [facility] Start: 10-19-2024 Adult BMI Screening Adult BMI Screen ing [facility] Start: 10-19-2024 Tobacco Screening Tobacco Screening [facility] Start: 06-26-2024 Influenza vaccination Influenza Vacc ine [facility] Start: 03-03-2024 End: 03-03-2024 Patient encounter procedure 03/03/2024 2:00 PM EDT Office Visit [facility] [address] [place] [address] Eileen Fonseca, DO [address] [address] [facility] Start: 02-24-2024 Patient referral [facility] Work Phone: Start: 02-05-2024 Urine screening for protein Urine Microalbumin [facility] Start: 01-26-2024 End: 01-26-2024 Admission to same day surgery center 01/26/2024 12:00 PM EDT - 01/26/2024 1:00 PM EDT Surgery [facility] [address] [place] [phone] Eileen Fonseca, DO [address] [address] BRONCHOSCOPY ALVEOLAR LAVAGE [44369 (CPT )] [facility] Comment on above: BRONCHOSCOPY ALVEOLA R LAVAGE [35370 (CPT )] Start: 01-26-2024 End: 01-26-2024 Brncc w/brncl alveolar lavage BRONCHOSCOPY ALVEOLAR LAVAGE LANGULAR OBSTRUCTION AND CHRONIC COUGH 01/26/2024 12:00 PM EDT [facility] Start: 01-26-2024 Subsequent hospital visit by physician 01/26/2024 12:00 PM EDT Hospital Encounter [facility] [address] [place] [phone] Eileen Fonseca, DO [address] [address] [facility] Start: 01-19-2024 End: 01-19-2024 Admission to establishment 01/19/2024 10:00 AM EDT Support Visit [facility] [address] [address] [facility] Start: 01-07-2024 End: 01-07-2024 Patient encounter procedure 01/07/2024 11:30 AM EDT Office Visit [facility] [address] [place] [address] [place] [address] [place] [address] [facility] Start: 12-24-2023 End: 12-24-2023 Patient encounter procedure 12/24/2023 3:45 PM EST Office Visit [facility] [address] [address] Eileen Fonseca, [address] [address] [facility] Start: 06-26-2023 COVID-19 Vaccine ( season) COVID-19 Vaccine ( season) [facility] Start: 06-05-2022 Depression Screening [facility] Scre ening [facility] Start: 09-11-2021 COVID-19 Vaccine (3 - Moderna risk series) COVID-19 Vaccine (3 - Moderna risk series) [facility] Start: 06-26-2021 Influenza vaccination Flu vacc ine (Season Ended) [employer] Phone: Start: 02-08-2021 Annual Wellness Visi t (AWV) Annual Wellness Visit (AWV) [employer] Phone: Start: 11-10-2020 Administration of varicella zoster vaccine Zoster (Shingles) Vaccine (2 of 2) [facility] Start: 2017 Fall Risk Screening Fall Risk Screen ing [facility] Start: 2017 Pneumococcal 65+ yea rs Vaccine (2 of 2 - PPSV23) Pneumococcal 65+ years Vaccine (2 of 2 - PPSV23) [employer] Phone: Start: 2007 Screening for osteoporosis DEXA (modify frequency per FRAX score) [employer] Phone: Start: 2002 Screening for malign ant neoplasm of breast Breast cancer screen [employer] Phone: Start: 2002 Screening for malign ant neoplasm of colon Colon cancer screen colonoscopy [employer] Phone: Start: 2002 Shingles Vaccine (1 of 2) Shingles Vaccine (1 of 2) [employer] Phone: Start: 1970 Adult BMI Follow Up Plan Adult BMI Follow Up Plan [facility] Start: 1970 Diabetic foot examination Diabetic Foot Exam [facility] Start: 1968 COVID-19 Vaccine (1) COVID-19 Vaccin e (1) [employer] Phone: Start: 1964 Depression Screening Depression Scre ening [facility] Start: 1962 Lipid panel Lipid screen [facility] [place] Work Phone: Start: 1950 Glaucoma screening Diabetic Op [facility]thalmology Exam [facility] Start: 1950 Hepatitis C screening Hepatitis C sc reen [employer] Phone: Start: 1950 Medicare Annual Well ness Visit Medicare Annual Wellness Visit [facility] Start: 1952 Tobacco Counseling Tobacco Counselin g [facility] WO contrast [facility] End: 02-12-2021 Glucose [Mass/volume] in Serum or Plasma POCT Glucose Point of Care Testing Routine One Time for 1 Occurrences starting 02/12/2021 until 02/12/2021 [employer] Phone: Comment on above: One Time for 1 Occur rences starting 02/12/2021 until 02/12/2021 End: 01-06-2025 Home O2 eval (desaturation screen) Home O2 eval (desaturation screen) Respiratory Care Routine Dyspnea on exertion 1 Occurrences starting 01/07/2024 until 01/06/2025 [email or web address] Phone: Comment on above: 1 Occurrences starti ng 01/07/2024 until 01/06/2025 Oxygen therapy [[facility] Data Set] Initiate Oxygen Therapy Protocol Respiratory Care Routine Daily until discontinued starting 02/12/2021 [employer] Phone: Comment on above: Daily until disconti nued starting 02/12/2021 [facility] Work Phone: [facility] Immunizations Immunization Date Immunization Notes Care Provider Marium chatman 08-10-2023 influenza virus vaccine, unspecified formulation Eileen Fonseca DO Work Phone: [facility] 06-04-2022 tetanus toxoid, redu anthony diphtheria toxoid, and acellular pertussis vaccine, adsorbed Angie Luis A BRONZE CHASER [facility] 09-15-2020 zoster vaccine recombinant Angie Luis A BRONZE CHASER [facility] 09-15-2020 zoster vaccine, unspecified formulation Angie Luis A BRONZE CHASER [facility] 08-10-2020 pneumococcal conjuga te vaccine, 13 valent Angie Luis A BRONZE CHASER [facility] 09-23-2018 influenza, injectabl e, quadrivalent, preservative free Angie Luis A BRONZE CHASER [facility] 09-11-2018 tetanus toxoid, redu anthony diphtheria toxoid, and acellular pertussis vaccine, adsorbed Angie Luis A BRONZE CHASER [facility] 11-01-2015 influenza, seasonal, injectable, preservative free Angie Luis A BRONZE CHASER [facility] 09-13-2009 novel [id number], preservative-free, injectable Angie Luis A BRONZE CHASER [facility] Payers Date Payer Category Payer Self-pay 2020 Medicaid [id number] 2020-Present [phone] [address] [place] [address] [id number] 2020 Medicaid [id number] 2019 Private Health Insurance [id number] 2019 Medicare [employer] MEDICARE UHC MEDICARE DUAL COMPLETE [id number] 2019-Present [phone] [address] [address] [place] [address] [id number] 2017 Medicare [id number] [id number] 1952 Unknown [id number] 2.16.840.1.335996.3.579. 2.177 1952 Unknown [id number] 2.16.840.1.685556.3.579. 2.593 1952 Unknown [id number] 2.16.840.1.246737.3.579. 2.593 1952 Unknown [id number] 2.16.840.1.613831.3.579. 2.1286 1952 Unknown [id number] 2.16.840.1.759128.3.579. 2.6 1952 Unknown [id number] 2.16.840.1.952814.3.579. 2.1286 1952 Unknown [id number] 2.16.840.1.797422.3.579. 2.1286 1952 Unknown [id number] 2.16.840.1.189432.3.579. 2.1286 1952 Unknown [id number] 2.16.840.1.064814.3.579. 2.1286 1952 Unknown [id number] 2.16.840.1.487678.3.579. 2.1286 1952 Unknown [id number] 2.16.840.1.943406.3.579. 2.1286 1952 Unknown [id number] 2.16.840.1.369966.3.579. 2.128 1952 Unknown [id number] 2.16.840.1.864096.3.579. 2.128 1952 Unknown [id number] 2.16.840.1.031181.3.579. 2.128 1952 Unknown [id number] 2.16.840.1.247072.3.579. 2.1281953 Unknown [id number] 2.16.840.1.588115.3.579. 2.1285 1952 Unknown [id number] 2.16.840.1.706184.3.579. 2.1285 1950 Unknown [id number] 2.16.840.1.302328.3.579. 2.1285 1950 Unknown [id number] 2.16.840.1.766981.3.579. 2.1285 1950 Unknown [id number] 2.16.840.1.049490.3.579. 2.1285 1950 Unknown [id number] 2.16.840.1.265734.3.579. 2.1285 1950 Unknown [id number] 2.16.840.1.579943.3.579. 2.1285 1950 Unknown [id number] 2.16.840.1.520608.3.579. 2.1285 1950 Unknown [id number] 2.16.840.1.897002.3.579. 2.1285 1950 Unknown [id number] 2.16.840.1.355683.3.579. 2.1285 1950 Unknown [id number] 2.16.840.1.831429.3.579. 2.1285 1950 Unknown [id number] 2.16.840.1.639159.3.579. 2.1285 1950 Unknown [id number] 2.16.840.1.835551.3.579. 2.1285 1950 Unknown [id number] 2.16.840.1.845206.3.579. 2.1285 1950 Unknown [id number] 2.16.840.1.914898.3.579. 2.1285 1950 Unknown [id number] 2.16.840.1.175635.3.579. 2.1286 1950 Unknown [id number] 2.16.840.1.385333.3.579. 2.1286 1950 Unknown [id number] 2.16.840.1.053922.3.579. 2.6 1950 Unknown [id number] 2.16.840.1.317937.3.579. 2.1286 1950 Unknown [id number] 2.16.840.1.295142.3.579. 2.1286 1950 Unknown [id number] 2.16.840.1.638006.3.579. 2.8 1950 Unknown [id number] 2.16.840.1.336364.3.579. 2.718 1950 Unknown [id number] 2.16.840.1.657925.3.579. 2.718 1950 Unknown [id number] 2.16.840.1.143767.3.579. 2.718 Medicare Medicare [id number] Unknown [id number] 2.16.840.1.755677.3.579. 2.531 Social History Date Type Detail Facility Start: 02-12-2021 End: 01-26-2024 Tobacco smoking status [facility] Current every day smoker [facility] Start: 02-12-2021 End: 02-14-2021 Cigarettes smoked current (pack per day) - Reported [employer] Phone: Start: 02-12-2021 End: 04-25-2024 Tobacco use and exposure Never used [employer] Start: 02-12-2021 End: 01-26-2024 Alcohol intake Current drinker of alcohol (finding) [employer] Phone: Start: 11-22-2015 Alcohol Comment RARE 1 DRINK E VERY 6 MONTHS [employer] Work Phone: Start: 1950 Sex Assigned At Not on file M [employer] Work Phone: Exposure to SARS-CoV -2 (event) Not sure [employer] End: 10-16-2023 History of tobacco use Cigarette Smoker [facility] [employer] Start: 02-14-2021 End: 06-16-2024 Social connection and isolation panel [facility] Do you belong to any clubs or organizations such as voodoo groups, unions, fraternal or athletic groups, or school groups? No [facility] Attends Club or Organization Meetings Not on file [facility] How often to you hav e a drink containing alcohol? Monthly or less [facility] How many standard dr inks containing alcohol do you have on a typical day? 1 or 2 [facility] How often do you hav e 6 or more drinks on 1 occasion? Never [facility] Do you feel stress - tense, restless, nervous, or anxious, or unable to sleep at night because your mind is troubled all the time - these days [OSQ] Not at all [facility] Start: 02-14-2021 Alcohol Comment rare [facility] Start: 01-07-2024 Tobacco smoking stat [facility] Ex-smoker [facility] Start: 02-24-2024 End: 05-17-2024 History of tobacco use Current smoker [facility] Start: 1950 Sex Assigned At Female F [facility] Start: 04-25-2024 Tobacco smoking stat [facility] Occasional tobacco smoker [facility] Start: 07-28-2024 Alcoholic beverage intake Ex-drinker (finding) [facility] Has the [employer], [employer], or water company threatened to shut off services in your home in past 12Mo Yes [facility] Start: 04-25-2024 Tobacco Comment Every now and then will have a cigarrette [facility] Medical Equipment Procedure Code Equipment Code Equipment Origin al Text Equipment Identifier Dates AAA repair with graft GRAFT HEMASHIELD [id number] FDA Start: 04-18-2019 AAA repair with graft GRAFT HEMASHIELD [id number] FDA Start: 04-18-2019 AAA repair with graft GRAFT HEMASHIELD [id number] FDA Start: 04-18-2019 Brng Hum 36-44mm Std Shldr - [id number] Start: 09-13-[address] c Rpl [id number] - [id number] Start: 09-13-2018 Cbl Orth Lcp 750 mm Ss 1.7mm - [id number] Start: 09-13-2018 Lens Iol Ultrase rt 20.5d - [id number] - [id number] Start: 09-02-2018 Ty Hum Cmprh 44m m Cocr +5mm - [id number] Start: 09-13-2018 Scr Bn 25mm 4.75 mm Fx Ang Lck - [id number] Start: 09-13-2018 [id number] Start: 07-22-2022 USE TO TEST 2 TI MES DAILY [id number] Start: 07-22-2022 Plg Bn Cmnt Med 11-13mm Im Cnl - [id number] Start: 09-13-2018 Gd Pin Orth 3.2m m 9in Stnm - [id number] Start: 09-13-2018 Bsplt Kim Cmprh 25mm Mn Tpr - [id number] Start: 09-13-2018 Bsplt Kim 36mm Cmprh - [id number] Start: 09-13-2018 Stm Hum 122mm 10 mm Cmprh Por - [id number] Start: 09-13-2018 Scr Bn 20mm 4.75 mm Fx Ang Lck - [id number] Start: 09-13-2018 Scr Bn 25mm 6.5m m Cntr Hex - [id number] Start: 09-13-2018 Scr Bn 20mm 4.75 mm Va Nonlock - [id number] Start: 09-13-2018 Scr Bn 15mm 4.75 mm Va Nonlock - [id number] Start: 09-13-2018 Goals Date Patient Goal Desired Activity /State Personal health goal Comment on above: Formatting of this n ote might be different from the original. Evaluation of progress towards goal: Return home with self care, quit smoking. - SUBHA Chase 09/12/18 2:02 PM Personal health goal Comment on above: Formatting of this n ote might be different from the original. Evaluation of progress towards goal: does not feel well Clinical Notes 02-12-2021 to 07-28-2024 Eileen Fonseca, DO - 07/28/2024 1:15 PM EDTCkizzy Cho RN - 01/07/2024 12:11 PM Salena Fonseca, DO - 01/07/2024 11:30 AM EDTTelephone Encounter - Beulah Cho RN - 12/31/2023 4:22 PM EST Note Date & Type Note Facility 07-28-2024 History of Presen t illness Narrative [facility] Progress Note Patient - Jazzmine Patel Age - 73 y.o. 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 She is agreeable to prescription and will proceed with set up. Rx has already been sent to the DME and awaiting delivery Continue Breztri with spacer along with albuterol aerosols up to 4 times daily Continue doxycycline 1 capsule 3 times weekly Hold off on therapeutic bronchoscopy given patient's report of improved mucus symptoms with flutter valve Ongoing follow-up with her oncology and radiation oncology team Age-appropriate routine vaccination advised Tobacco cessation discussed and she has no plans to quit She was requested to schedule PFT that has been ordered since February RTC in 3 months or earlier if needed. MARLINE [place] presents for follow-up of her COPD, tobacco use, history of endobronchial adenocarcinoma status post radiation. She continues to follow-up with radiation and Oncology. She has had issues with mucus production, chronic bronchitis features. She has been very fatigued since radiation and feels as though she can sleep all the time. She denies any recent exacerbation requiring antibiotics or steroids. No episodes of hemoptysis. No unintentional weight loss. She recently had home oxygen evaluation and did not qualify for supplemental oxygen therapy while awake but did drop her oxygen levels with sleep and qualified for 2 L with supplemental oxygen with sleep. She has not yet received equipment and due to need for lnrm-pl-hhxz apparently in additional documentation from the DME. She reports that her mucus has actually been significantly improved most recently. She has been using her flutter valve which does help and her mucus has not been sick for several weeks. It was a little bit more yellow today. She has not been using her hypertonic saline aerosols. She has not felt the need to use her p.r.n. rescue aerosols. VITALS BP 106/66 Pulse 91 Ht 170.2 cm (5' 7 ) Wt 54.4 kg (119 lb 14.4 oz) LMP (LMP Unknown) SpO2 100% BMI 18.78 kg/m Exam General: Alert, oriented, no acute distress, Chest: Clear to auscultation bilaterally without any crackles, wheezes, rhonchi. Increased AP diameter. CV: Regular rate regular rhythm Extremities: No edema, erythema, distal cyanosis, clubbing Integumentary: Warm and dry. No rash or lesion Neuro: No lateralizing deficits. No tremors Meds Medications Reviewed. Radiology CTA CHEST 04/25/24 STUDY: CT angiography of the chest with [...] be seen in the setting of airway infection/inflammation. No acute findings at the thoracic inlet. [...] to posttreatment appearance, correlate with patient history. Dr. Eileen Fonseca DO. [facility] Office: [phone] documented in this encounter [facility] 04-18-2024 Note XR CHEST 1 VW Procedure: Chest x-ray performed Number of views:AP portable History:Shortness of breath and cough Comparison:02/01/2024 Findings: The heart and lungs show no acute findings, and the mediastinum and sylwia are grossly negative . There is a left shoulder replacement Impression: No acute change. Finalized by Sanaz Burns DO on 04/18/2024 1:42 PM [facility] 03-14-2024 Note Entered by MATILDA BROCK DO on March 14, 2024 07:37:29 EDT From: MIGUEL BROCK DO To: [facility]/pharmacy #[id number] Sent: 03/14/2024 07:37:29 EDT Subject: Medication Management Documented Complete:fluticasone nasal (fluticasone 50 mcg/inh nasal spray) Signed by MIGUEL BROCK DO 03/14/2024 07:37:00 EDT Approved fluticasone nasal (FLUTICASONE PROP 50 MCG SPRAY) SPRAY 1 SPRAY INTO EACH NOSTRIL EVERY DAY Qty: 32 mL Days Supply: 120 Refills: 4 Substitutions Allowed Route To Pharmacy - [id number] Patient matched by MIGUEL BROCK DO on 03/14/2024 07:37:12 EDT From: [employer] [id number] To: MIGUEL BROCK DO Sent: March 12, 2024 6:55:34 AM CDT Subject: Medication Management Due: March 13, 2024 12:03:07 AM CDT On Hold Pending Signature Dispensed Drug: fluticasone nasal (fluticasone 50 mcg/inh nasal spray), SPRAY 1 SPRAY INTO EACH NOSTRIL EVERY DAY Quantity: 32 mL Days Supply: 120 Refills: 4 Substitutions Allowed Notes from Pharmacy: [facility] 01-11-2024 Note Entered by MATILDA BROCK DO on January 11, 2024 07:47:51 EDT From: MIGUEL BROCK DO To: [facility]/pharmacy #[id number] Sent: 01/11/2024 07:47:51 EDT Subject: Medication Management Approved Durable Medical Equipment for Prescription (ONE TOUCH ULTRA BLUE TEST STRP) TEST TWICE DAILY Qty: 100 Strip Days Supply: 30 Refills: 4 Substitutions Allowed Route To Pharmacy - [facility]/pharmacy #[id number] From: [employer] [id number] To: MIGUEL BROCK DO Sent: January 10, 2024 11:22:06 PM CDT Subject: Medication Management Due: January 11, 2024 12:31:07 AM CDT On Hold Pending Signature Dispensed Drug: ONE TOUCH ULTRA BLUE TEST STRP, TEST TWICE DAILY Quantity: 100 Strip Days Supply: 30 Refills: 4 Substitutions Allowed Notes from Pharmacy: [facility] 01-07-2024 History of Presen t illness Narrative SENT CARDIAC CLEARANCE LETTER TO DR Servando ELLIS FOR UPCOMING BRONCHOSCOPY WITH BAL UNDER GENERAL ANESTHESIA documented in this encounter [facility] 01-07-2024 History of Presen t illness Narrative Images from the original note were not included. [facility] Progress Note [...] nodules. * Emphysema. Dr. Eileen Fonseca DO. [facility] Office: [phone] documented in this encounter [facility] 12-31-2023 Miscellaneous Notes PATIENT RETURNED CALL. NOT SURE WHO CALLED PATIENT. PLEASE CALL HER BACK AT [phone] documented in this encounter [facility] 12-31-2023 Telephone encounter Note PATIENT RETURNED CALL. NOT SURE WHO CALLED PATIENT. PLEASE CALL HER BACK AT [phone] [facility] 12-31-2023 Miscellaneous Notes She has abnormal imaging from 12/03 and has been scheduled and not shown it looks like twice? Can we reach out to her and see if she can come in and notify PCP of imaging and efforts please just so he is up to date? Thank you documented in this encounter [facility] 12-31-2023 Telephone encounter Note She has abnormal imaging from 12/03 and has been scheduled and not shown it looks like twice? Can we reach out to her and see if she can come in and notify PCP of imaging and efforts please just so he is up to date? Thank you [facility] 12-07-2023 Miscellaneous Notes ----- Message from Eileen Fonseca DO sent at 12/07/2023 10:35 AM EST ----- Can she come in on at 3:45? Signwriter spoke with patient and informed her that SE would like to see her on 12/24/2023 at 3:45pm if patient is available. Patient stated that she is able to come into the office on 12/24/2023 at 3:45pm. Appointment moved to 12/24/2023. documented in this encounter [facility] 12-07-2023 Telephone encounter Note ----- Message from Eileen Fonseca DO sent at 12/07/2023 10:35 AM EST ----- Can she come in on at 3:45? [facility] 12-07-2023 Telephone encounter Note Signwriter spoke with patient and informed her that SE would like to see her on 12/24/2023 at 3:45pm if patient is available. Patient stated that she is able to come into the office on 12/24/2023 at 3:45pm. Appointment moved to 12/24/2023. [facility] 10-21-2023 Miscellaneous Notes Pt called again on [...] up. Pt agreeable. documented in this encounter [facility] 10-21-2023 Telephone encounter Note Pt called again on SE nurse line stating she needs a return phone call JAMEEL. Returned pt's call and informed her once SE is back and reviews everything/ lets us know where we can add her, we will call her. Pt is aware + agreeable. [facility] 10-21-2023 Telephone encounter Note Pt returned call. Pt agreeable to schedule CT chest - number to central scheduling provided. Advised pt once CT is scheduled to call office for follow up. Pt agreeable. [facility] 09-10-2023 Note Entered by MATILDA BROCK DO on September 10, 2023 08:32:46 EST From: MIGUEL BROCK DO To: [facility]/pharmacy #[id number] Sent: 09/10/2023 08:32:45 EST Subject: Medication Management Approved Order:calcium-vitamin D (calcium (as carbonate)-vitamin D 250 mg-125 intl units oral tablet) TAKE 1 TABLET BY MOUTH TWICE A DAY Qty: 180 tab(s) Days Supply: 90 Refills: 2 Substitutions Allowed Route To Pharmacy - [id number] Note from Pharmacy: REQUEST FOR 90 DAYS PRESCRIPTION. Signed by MIGUEL BROCK DO Cancelled: Discontinue:calcium-vitamin D (Oyster Shell Calcium with Vitamin D 250 mg-3.125 mcg (125 intl units) oral tablet) Signed by MIGUEL BROCK DO From: [id number] To: MIGUEL BROCK DO Sent: September 10, 2023 7:30:39 AM MORTGAGE LOAN ORIGINATOR Subject: Medication Management Due: September 11, 2023 7:30:39 AM MORTGAGE LOAN ORIGINATOR Originally Prescribed Drug: Drug: calcium-vitamin D (calcium [...] from Pharmacy: REQUEST FOR 90 DAYS PRESCRIPTION. [facility] 02-13-2021 Hospital Discharg e Riley Hurst APRN - CNP - 02/13/2021 7:49 AM [...] most local grocery stores, pharmacies, and chain super-stores. If you have any questions about your diet or nutrition, call the hospital and ask for the dietitian. Cardiac diet low in fat and sodium Riley Solis APRN - CNP - 02/13/2021 7:50 AM EDT Follow-up in [place] office in 7 to 10 days for cath site evaluation and continued monitoring. The following attachments cannot be sent through Care Everywhere.PCI (Percutaneous Coronary Intervention): Post-op (Urdu)PCI (Percutaneous Coronary Intervention): General Info (Urdu)atorvastatin (Urdu)clopidogrel (Urdu)documented in this encounter [employer] Phone: 02-12-2021 History of Presen t illness Narrative Patient admitted to room 1011 from PACU. VS taken, telemetry placed and call light given/within reach. Patient A&O and given room orientation. Orders released/reviewed, initial assessment completed and navigator started. See chart for more detail. 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 Dyspnea on exertion Other dyspnea and respiratory abnormality Abnormal CT of the chest Nonspecific (abnormal) findings on radiological and other examination of other intrathoracic organs Tobacco abuse Tobacco use disorder [facility] Diagnosis Onset Date Resolution Status 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 [facility] Work Phone: Evaluation note* Diagnosis Onset Date Resolution Status 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 [facility] Work Phone: Evaluation note* Diagnosis Moderate COPD (chronic obstructive pulmonary disease) ([facility])- Primary Tobacco abuse Tobacco use disorder 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 Primary lung adenocarcinoma, left ([facility]) documented [facility] filedocumented in this encounter [facility] on filedocumented in this encounter [facility]ructions[facility] on filedocumented in this encounter [facility] on filedocumented in this encounter [facility]ructions[facility] on filedocumented in this encounter [facility] on filedocumented in this encounter [facility]ructionsNot on filedocumented in this encounter [facility] Author Urszula Etienne [facility] March 15, 2024 11:42am Note Date/Time March 15, 2024 9:58a m [facility] [place] [address] Cancer Center Note Signed Patient: Jazzmine Patel MR#: [id number] : 1950 Acct:[id number] Age/Sex: 73 / F Type: DEP AMB Date of Service: 03/15/24 Copies to: MD Miguel Estrada, DO~ Assessment [...] today having undergone a screening EBUS in [place] on March 01, 2024. A single abnormal [...] to clinic today having undergone EBUS in [place]. EBUS was completedon March 01, 2024 copious [...] the order needed to be faxed to [place]. Today she reports worsening shortness of breath [...] a 3 week follow up visit before [facility] Medical History Medical History Bronchiolo-alveolar adenocarcinoma [...] signed by Urszula Etienne MD> 03/15/24 1142 [facility] Work Phone: Reason for Referral Status Reason Specialty Diagnoses / Procedures Referred By Contact Referred To Contact [facility] Required Cardiac Rehabilitation Diagnoses Abnormal stress test [facility] [address] [place] [id number] Scheduling Instructions S/p stents Specialty Diagnoses / Procedures Referred By Contac t Referred To Contact Diagnoses Dyspnea on exertion Procedures Home O2 eval (desaturation screen[place] [address] [place] [id number] Referral ID Status Reason Start Date Expiration Date V isits Requested Visits Authorized [id number] Pending Review 01/07/2024 01/06/2025 1 1 Advance Directives No Advanced Directives Records FoundDocuments on File Type Date Recorded Patient Pasting Inspector Expl anation Durable Power of Prison Officer Date Activated Date Inactivated Comments 04/25/2024 11:30 AM 04/27/2024 3:46 PM Date Activated Date Inactivated Comments 08/09/2020 3:44 PM 08/10/2020 7:03 PM Date Activated Date Inactivated Comments 09/12/2018 5:17 AM 09/16/2018 7:33 PM Documents on File Type Date Recorded Patient Pasting Inspector Expl anation ACP-Advance Directive ACP-Power of Prison Officer Latest Code Status on File Code Status Date Activated Date Inactivated Comments Full Code 02/12/2021 7:33 PM Full Code 12/04/2015 10:41 AM 12/04/2015 7:30 PM Latest Code Status on File Code Status Date Activated Date Inactivated Comments Full Code 08/09/2020 3:44 PM 08/10/2020 7:03 PM Code Status History Code Status Date Activated Date Inactivated Comments Full Code 09/12/2018 5:17 AM 09/16/2018 7:33 PM Documents on File Type Date Recorded Patient Pasting Inspector Expl anation Durable Power of Prison Officer Latest Code Status on File Code Status [...] Bronchiolo-alveolar adenocarcinoma of left lung Chief Complaint Lung Cancer Lung Cancer Follow Up 1 Month Follow Up after CT Lung Cancer Reason for Visit 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 Additional Source Comments Reason for Visit (unrecogniz ed section and content) Status Reason Specialty Diagnoses / Procedures Referre d By Contact Referred To Contact Stasangita Roving Department End Finder [address] [place] [address] [facility] Reason Comments Follow-up Cspvq-7-dwsgzctyaku deficiencyPulmonary NoduleCT: 12/02/2023Lower Respiratory Culture: 06/12/2023 Reason Comments COPD Home O2 Evaluation: 07/15/2024 Follow-up Ordered Prescriptions (unrec ognized section and content) [...] section and content) DATE CREATED AUTHOR 02/15/2021 [facility] DATE CREATED AUTHOR AUTHOR'S ORGANIZ ATION 03/03/2023 [facility] DATE CREATED AUTHOR AUTHOR'S ORGANIZ ATION 03/17/2024 [facility] DATE CREATED AUTHOR AUTHOR'S ORGANIZ ATION 04/28/2024 [facility] DATE CREATED AUTHOR AUTHOR'S ORGANIZ ATION 07/15/2024 [facility] DATE CREATED AUTHOR AUTHOR'S ORGANIZ ATION 07/30/2024 [facility] DATE CREATED AUTHOR AUTHOR'S ORGANIZ ATION 08/09/2024 [facility] l Care Teams (unrecognized sec tion and content) Team Status: Active Member Role Status Dates Miguel Brock DO Primary Care Provider Active Team Status: Active Member Role Status Dates Miguel Brock DO Primary Care Provider Active Start: April 19, 2024 Urszula Etienne MD Attending [facility] er, Other Provider Active Start: April 19, 2024 Anisha Wolf MD Referring Provider Active St art: April 19, 2024 Team Status: Active Member Role Status Dates Miguel Brock DO Primary Care Provider Active Start: May 02, 2024 Urszula Etienne MD Attending [facility] er, Other Provider Active Start: May 02, 2024 Anisha Wolf MD Referring Provider Active St art: May 02, 2024 Team Status: Inactive Member Role Status Dates Miguel Brock DO Primary Care Provider Active Start: May 17, 2024 End: May 17, 2024 Urszula Etienne MD Attending Provider Active Start: May 17, 2024 End: May 17, 2024 Team Status: Inactive Member Role Status Dates Miguel Brock DO Primary Care Provider Active Start: July 12, 2024 End: July 12, 2024 Urszula Etienne MD Attending Provider Active Start: July 12, 2024 End: July 12, 2024 Team Status: Active Member Role Status Dates Miguel Brock DO Primary Care Provider Active Start: July 12, 2024 Urszula Etienne MD Attending Provider Active Start: July 12, 2024 Anisha Wolf MD Referring Provider Active St art: July 12, 2024 Brick Paver Relationship Specialty Start Date End Date Miguel Brock DO [address] [place] [address] PCP - General 10/17/16 Brick Paver Relationship Specialty Start Date End Date Miguel Brock DO [address] [place] [address] PCP - General 10/17/16 Brick Paver Relationship Specialty Start Date End Date Miguel Brock DO [address] [place] [address] PCP - General 10/17/16 Brick Paver Relationship Specialty Start Date End Date Miguel Brock DO [address] [place] [id number] PCP - General Family Medicine 01/25/24 Team Status: Inactive Member Role Status Dates [...] Provider Active St art: May 17, 2024 Brick Paver Relationship Specialty Start Date End Date Miguel Brock DO [address] [place] [address] PCP - General Family Medicine 04/25/24 Goals (unrecognized section and content) Goals may be documented in a n alternate sectionGoals may be documented in an alternate sectionGoals may be documented in an [...] BE BASED ON THE PRIMARY CLINICAL RECORDS. [facility] [email or web address] [facility]. provides no warranty or guarantee of the accuracy or completeness of information in this document.
--- NOTE | 2024-08-10 09:12 | CT_ITS ---
[address] [address] Patient Name: NICOLAS PATEL MRN: [id number] date: 1950 Sex: F Assigned Patient Location: LAB Current Patient Location: LAB Accession/Order Number: [id number] Exam Date: 08/10/2024 09:30 Report Date: 08/11/2024 11:30 At the request of: WEI WILLETT Procedure: CT soft tissue neck w con EXAMINATION: CT soft tissue neck w con HISTORY: Malignant Neoplasm Of Lung. Difficulty swallowing. Lump at the right side of the neck. COMPARISON: CT chest 06/21/2024. TECHNIQUE: CT images through the soft tissues of the neck with intravenous contrast. Dose reduction techniques were achieved by using: automated exposure control and/or adjustment of mA and /or kV according to patient size and/or use of iterative reconstruction technique. FINDINGS: No focal lesions in the included brain. No mass lesions in the nasopharynx, oropharynx, oral cavity, hypopharynx. No lesions in the larynx and upper trachea. No cervical adenopathy. The thyroid gland is not definitively identified, which could be hypoplastic or surgically removed. The bilateral submandibular glands are symmetric. There is a BB placed on the skin at the right side of the neck, directly overlying the right submandibular glands. There may be subtle hyperemia of the bilateral submandibular glands. No ductal dilatation or calculi. No lesions in the parotid glands. Heavy atherosclerotic calcification of the bilateral carotid bulbs. Significant stenosis of the origin of the left internal carotid artery may appear present on this CT of the neck. Heavy atherosclerotic calcification of the bilateral vertebral arteries with possible significant stenosis on the left at the level of the skull base. No airspace consolidation in the included lung apices. CT/CT soft tissue neck w con IMPRESSION: 1. There is a skin marker placed at the right side of the neck, designating area of palpable concern. This directly overlies the right submandibular gland. The bilateral submandibular glands are symmetric, and may be mildly hyperemic, which could potentially be secondary to subtle bilateral sialoadenitis. No ductal dilatation or calculi. 2. No mass lesions in the pharyngeal mucosal spaces. No mass lesions or adenopathy in the remaining neck. 3. Heavy atherosclerotic calcification at the bilateral carotid bulbs, with significant stenosis of the origin of the left internal carotid artery suspected. There is also atherosclerotic calcification of the distal bilateral vertebral arteries at the level of the skull base, with possible significant stenosis of the left vertebral artery at the skull base. Please refer to carotid ultrasound 06/02/2024 for additional details. Electronically authenticated by: LATA QUACH Date: 08/11/2024 11:30
[2024-08-10 09:17] LABS: Estimated GFR (African America 53 (>=60 mL/min/1.73m^2); Estimated GFR (Non-African Ame 44 (>=60 mL/min/1.73m^2)
== END 2024-08-10 08:59 | disposition home or self-care (01) ==
LOC: LAB 08:58
PROVIDERS: PCP Family Medicine; Visit Provider Internal Medicine Hematology & Oncology
DX: C34.92 Malignant neoplasm of unspecified part of left bronchus or lung (principal); R22.1 Localized swelling, mass and lump, neck
CPT/HCPCS: 36415; 70491; 82565; 84520; Q9967

== ENCOUNTER 2024-10-11 07:33 | Outpatient (RCR) | payer MEDICARE, SELFPAY ==
--- OUTSIDE RECORDS SUMMARY | 2024-10-11 07:37 | XMS_ITS | CCD ---
Author Organization [facility] Care Team Providers Care Securities Teller Name Role Phone House , Sr Miguel Vargas Primary Care Provider [phone] WILLIE PARRA Admitting Unavailable WILLIE PARRA Attending Unavailable WILLIE PARRA Referring Unavailable MILLER PLACE, SR MIGUEL Vargas Primary Care Unavailable MILLER PLACE, DR BLISS Admitting Unavailable MILLER PLACE, DR BLISS Attending Unavailable MILLER PLACE, DR BLISS Primary Care Unavailable MILLER PLACE, DR BLISS Admitting Unavailable MILLER PLACE, DR BLISS Attending Unavailable MILLER PLACE, DR BLISS Consulting Unavailable MILLER PLACE, DR BLISS Primary Care Unavailable House Miguel NIÑO Primary Care Provider Miguel Brock DO Primary Care Provider DO Miguel Brock Primary Care Provider MD Urszula Etienne Attending Provider MD Anisha Wolf Referring Provider DO Miguel Brock Primary Care Provider MD Urszula Etienne Attending Provider MD Anisha Wolf Referring Provider DO Miguel Brock Primary Care Provider MD Urszula Etienne Attending Provider MD Anisha Wolf Referring Provider [phone] EILEEN FONSECA Admitting Unavailable EILEEN FONSECA Attending Unavailable MIGUEL BROCK Primary Care Unavailable EILEEN FONSECA Attending Unavailable EILEEN FONSECA Referring Unavailable MIGUEL BROCK Primary Care Unavailable FELIX BURNS Attending Unavailable HOUSE, MIGUEL P Primary Care Unavailable LOLAEILEEN M Admitting Unavailable LOLA, EILEEN M Attending [...] P Primary Care Unavailable House DO, Miguel P Primary Care Provider HOUSE, MIGUEL P Primary Care Unavailable Renzo Gilliland MD Attending Unavailable HOUSE, MIGUEL P Primary Care Unavailable HOUSE, MIGUEL P Primary Care Unavailable Renzo Gilliland MD Attending Unavailable HOUSE, MIGUEL P Primary Care Unavailable HOUSE, DO MIGUEL P Admitting Unavailable HOUSE, DO MIGUEL P Attending Unavailable House DO, Miguel P Primary Care Provider HOUSE, MIGUEL P Primary Care Unavailable CHAUNCEY WILLIAMSON Attending Unavailable TERICHAUNCEY Attending Unavailable TERI, CHAUNCEY L Referring Unavailable HOUSE, MIGULE P Primary Care Unavailable TERICHAUNCEY L Attending Unavailable TERI, CHAUNCEY L Referring Unavailable HOUSE, MIGUEL P Primary Care Unavailable LOLAEILEEN M Referring Unavailable HOUSE, MIGUEL P Primary Care Unavailable HOUSE, MIGUEL P Primary Care Unavailable GHENCIAFATEMEH Lopez Attending Unavailable GHENCIANFATEMEH Attending Unavailable GHENCIAN, FATEMEH Referring Unavailable HOUSE, MIGUEL P Primary Care Unavailable LOLA, EILEEN M Referring Unavailable HOUSE, MIGUEL P Primary Care Unavailable HOUSE, MIGUEL P Primary Care Unavailable BRENNON, ANISHA Referring Unavailable HOUSE, MIGUEL P Referring Unavailable HOUSE, MIGUEL P Primary Care Unavailable HOUSE, MIGUEL P Referring Unavailable HOUSE, MIGUEL P Primary Care Unavailable LOLA, EILEEN M Referring Unavailable HOUSE, MIGUEL P Primary Care Unavailable HOUSE, MIGUEL P Primary Care Unavailable BREANNE ANNE Attending Unavailable MONICA MANUEL Attending Unavailable MONICA MANUEL Referring Unavailable HOUSE, MIGUEL P Primary Care Unavailable EILEEN FONSECA Attending Unavailable LOLAEILEEN Referring Unavailable HOUSE, MIGUEL P Primary Care Unavailable EILEEN FONSECA Attending Unavailable EILEEN FONSECA Referring Unavailable HOUSE, MIGUEL P Primary Care Unavailable LOLA, EILEEN Dover Attending Unavailable LOLA, EILEEN Dover Referring Unavailable HOUSE, MIGUEL P Primary Care Unavailable HOUSE, MIGUEL P Primary Care Unavailable SYL AMARO Attending Unavailable BETO BLACKWOOD Admitting Unavailable [facility] Consulting Unavailable SYL AMARO Attending Unavailable SYL AMARO Referring Unavailable HOUSE, MIGUEL P Primary Care Unavailable HOUSE, MIGUEL P Primary Care Unavailable MARCO DOHERTY Attending Unavailable EILEEN FONSECA Attending Unavailable EILEEN FONSECA Referring Unavailable HOUSE, MIGUEL P Primary Care Unavailable LOLA, EILEEN Dover Referring Unavailable HOUSE, MIGUEL P Primary Care Unavailable LowellUrszula collins R Admitting Unavailable Urszula Etienne R Attending Unavailable Anisha Wolf Referring Unavailable House, Miguel Primary Care Unavailable Allergies Allergy Classification Reported Allergen(s) Allergy Type Date of Onset Reaction(s) Facility (2 sources) Sulfamethoxazole / Trimethoprim; Translations: [Bactrim] Drug Allergy [facility] (17 sources) Sulfamethoxazole / Trimethoprim; Translations: [SULFAMETHOXAZOLE-TR IMETHOPRIM] Drug Allergy 1 [facility] Medications Current Medications Medication Drug Class(es) Dates Sig (Normalized) Sig (Original) acetaminophen 325 mg oral tablet (2 sources) Start: 02-12-2021 acetaminophen (TYLENOL) tablet 650 mg End: 02-13-2021 take 2 tablets by mouth every six hours as needed for pain acetaminophen (TYLENOL) 325 MG tablet Take 650 mg by mouth every 6 hours as needed for Pain 0 02/13/2021 Discontinued (Stop Taking at Discharge) [id number] 200 actuat albuterol 0.09 mg/actuat metered dose inhaler (20 sources) beta2-Adrenergic Agonist Start: 04-27-2024 take 2 puff(s) by inhalation every four hours as needed for wheezing albuterol (PROVENTIL HFA;VENTOLIN HFA) 90 mcg/actuation inhaler Indications: Moderate COPD (chronic obstructive pulmonary disease) ([facility]) Inhale 2 puffs every 4 (four) hours as needed for wheezing. 6.7 g 11 04/27/2024 Active Start: 08-03-2023 take 2 puff(s) by mo uth every four hours as needed albuterol (PROVENTIL HFA;VENTOLIN HFA) 90 mcg/actuation inhaler Indications: Moderate COPD (chronic obstructive pulmonary disease) ([facility] TAKE 2 PUFFS BY MOUTH EVERY 4 HOURS NEEDED FOR WHEEZE 6.7 g 11 08/03/2023 Active Start: 05-11-2023 take 1 dose by inhal ation four times daily as needed for wheezing albuterol (PROVENTIL,VENTOLIN) 2.5 mg /3 mL (0.083 %) nebulizer solution Indications: Chronic obstructive pulmonary disease, unspecified COPD type ([facility] [place]) INHALE ONE VIAL VIA NEBULIZER FOUR TIMES [...] 0 Active apixaban 5 mg oral tablet (19 sources) Factor Xa Inhibitor Start: 05-06-2022 take 1 tablet by mouth twice daily ELIQUIS 5 mg tablet Indications: Paroxysmal atrial fibrillation ([facility] [place]) TAKE 1 TABLET BY MOUTH TWICE DAILY 60 tablet 05/06/2022 Active Start: 01-12-2019 End: 02-13-2021 take 1 tablet by mouth twice daily Apixaban (Eliquis) 5 mg Tablet Active 5 MG PO Twice daily January 12, 2019 12:00am aspirin 81 mg chewable tablet (20 sources) Platelet Aggregation Inhibitor, Nonsteroidal Anti-inflammatory Drug [...] mouth daily 30 tablet 3 02/13/2021 Active azithromycin 250 mg oral tablet (3 sources) Macrolide Antimicrobial Start: 09-27-2024 End: 10-01-2024 azithromycin (ZITHROMAX) 250 mg tablet Take 2 by mouth today then 1 daily for 4 days 6 tablet 09/27/2024 10/01/2024 Active 120 actuat budesonide 0.16 mg/actuat / formoterol fumarate 0.0048 mg/actuat / glycopyrrolate 0.009 mg/actuat metered dose inhaler (7 sources) Corticosteroid, beta2-Adrenergic Agonist take 2 puff(s) by inhalation at bedtime budesonide-glycop yr-formoterol (BREZTRI AEROSPHERE) 160-9-4.8 mcg/actuation HFA aerosol inhaler Inhale 2 puffs in the morning and at bedtime. Active calcium carbonate 1250 mg / cholecalciferol 200 unt oral tablet (15 sources) Vitamin D Start: 03-26-2022 take 2 [...] by mouth 3 times daily 0 Active cefdinir 300 mg oral capsule (3 sources) Cephalosporin Antibacterial Start: 09-27-2024 End: 10-07-2024 take 1 capsule by mouth in the morning, then take 1 capsule by mouth at bedtime cefDINIR (OMNICEF) 300 mg capsule Take 1 capsule (300 mg total) by mouth in the morning and 1 capsule (300 mg total) before bedtime. Do all this for 10 days. 20 capsule 09/27/2024 10/07/2024 Active clopidogrel 75 mg oral tablet (2 sources) P2Y12 Platelet Inhibitor Start: 02-13-2021 take 1 tablet by mouth once daily clopidogrel (PLAVIX) 75 MG tablet Take 1 tablet by mouth daily 30 tablet 3 02/13/2021 Active Start: 02-13-2021 clopidogrel (P LAVIX) tablet 75 mg colloidal oatmeaL (AVEENO SOOTHING BATH) packet (14 sources) Start: 12-16-2021 colloidal oatm eaL (AVEENO SOOTHING BATH) packet Apply 1 application topically daily. 8 packet 12/16/2021 Active Start: 12-16-2021 colloidal oatm eaL (AVEENO SOOTHING BATH) packet Apply 1 application topically daily. 8 packet 0 12/16/2021 Active 24 hr dilTIAZem hydrochloride 180 mg extended release oral capsule (18 sources) Calcium Channel Nataly Start: 04-28-2024 take [...] Indications: Moderate COPD (chronic obstructive pulmonary disease) ([facility]) , Bronchiectasis without complication ([facility]) Take 1 capsule (100 mg total) [...] 10/29/2023 Active ezetimibe 10 mg oral tablet (14 sources) Dietary Cholesterol Absorption Inhibitor Start: 12-02-2022 [...] the lungs 2 times daily 0 Active MQRPHTRDIUN-RVFHUGSPD-KPVMLZ IN (1 source) take 1 puff(s) by inhalation once daily [id number]-BHAPJEUBK-RNDSQJ IN Inhale 1 puff into the lungs daily 0 Active 12 hr guaiFENesin 600 mg extended release oral tablet (7 sources) [facility] t: 24 guaiFENesin (MUCINEX) 600 mg tablet extended release 12hr Indications: Moderate COPD (chronic obstructive pulmonary disease) ([facility]) , Bronchiectasis without complication ([facility]) Take 2 tablets (1,200 mg total) by mouth every 12 (twelve) hours. 120 tablet 6 05/05/2024 Active 3 ml insulin glargine 100 unt/ml pen injector (20 sources) Insulin Analog [facility] t: 23 inject 100 [IU] by subcutaneous injection in [...] mononitrate 30 mg extended release oral tablet (15 sources) Nitrate Vasodilator Start: 08-28-2022 take 1 [...] Active levothyroxine sodium 0.125 mg oral tablet (20 sources) l-Thyrox ine Start: 12-03-2022 take 1 [...] PO Q6H 30 7 April 25, 2019 predniSONE 10 mg oral tablet (8 sources) Start: 09-27-2024 predniSONE (DELTASONE) 10 mg tablet Take 4 tabs daily x 3 days, then take 3 tabs daily x 3 days, then take 2 tabs daily x 3 days, then take 1 tab daily x 3 days 31 tablet 09/27/2024 Active Start: 04-13-2024 End: 04-13-2024 take 3 tablets [...] times daily 0 02/11/2021 Discontinued (LIST CLEANUP) rosuvastatin calcium 5 mg oral tablet (20 sources) HMG-CoA Reductase Inhibitor Start: 06-16-2024 take 1 tablet by mouth in the morning rosuvastatin (CRESTOR) 5 mg tablet Take 1 tablet (5 mg total) by mouth in the morning. 90 tablet 4 06/16/2024 Active Start: 10-16-2022 take 1 tablet by denae th once daily rosuvastatin (CRESTOR) 40 mg tablet Indications: Paroxysmal atrial fibrillation ([facility]) , Cerebrovascular accident (CVA), unspecified mechanism ([facility]) , Atherosclerosis of [place] coronary artery of [place] heart without angina pectoris , Status post insertion of drug eluting coronary artery stent TAKE 1 TABLET BY MOUTH EVERY DAY 30 tablet 2 10/16/2022 Active sodium chloride 30 mg/ml inhalation solution (12 sources) Start: 05-05-2024 take 120 mL by inhalation once daily sodium chloride 3 % nebulizer solution Indications: Moderate COPD (chronic obstructive pulmonary disease) ([facility]) , Bronchiectasis without complication ([facility]) Inhale by nebulization daily. 120 mL 12 [...] 2.5 mcg/actuation mist Indications: COPD without exacerbation ([facility]) Inhale 2 puffs daily. 4 g 10 09/05/2021 Active Start: 01-12-2019 End: 02-12-2021 take 1 capsule by inhalation once daily Tiotropium [place] (Spiriva With Handihaler) 18 mcg Capsule, W/Inhalation [...] Indications: Moderate COPD (chronic obstructive pulmonary disease) ([facility]) , Cough, persistent Inhale 4 mL by [...] (with meals) 0 02/11/2021 Discontinued (LIST CLEANUP) traMADol hydrochloride 50 mg oral tablet (3 sources) Opioid Agonist Start: 01-12-2019 End: 04-25-2019 take 50 mg by mouth every six hours Tramadol Discontinued 50 MG PO Q6H January 12, 2019 12:00am April 25, 2019 12:34pm Problems Active Problems Problem Classification Problem Date Documented Date Episodic/Chronic Acute cerebrovascular disease (14 sources) Cerebrovascular accident; Translations: [Cerebral infarction, unspecified] Onset: 02-14-2021 02-14-2021 Chronic Cancer of bronchus; lung (20 sources) Adenocarcinoma of left lung; Translations: [Malignant neoplasm of unspecified part of left bronchus or lung] Onset: 05-26-2019 02-24-2024 Chronic Cardiac and circulatory congenital anomalies (15 sources) Pulmonary arteriovenous malformation; 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] Onset: 05-26-2019 05-26-2019 Chronic Cardiac dysrhythmias (17 sources) Paroxysmal atrial fibrillation; Translations: [Paroxysmal atrial fibrillation] Onset: 12-10-2018 05-07-2020 Chronic Chronic obstructive pulmonary disease and bronchiectasis (20 sources) Moderate chronic obstructive pulmonary disease; Translations: [Chronic obstructive pulmonary disease, unspecified] Onset: 09-23-2018 07-17-2022 Chronic Chronic obstructive pulmonary disease and bronchiectasis (1 source) Bronchitis, not specified as acute or chronic; Translations: [Bronchitis, not specified as acute or chronic] Onset: 08-17-2024 Episodic Complications of surgical procedures or medical care (15 sources) Postoperative hypothyroidism; Translations: [Postprocedural hypothyroidism] Onset: 09-01-2022 09-01-2022 Chronic Coronary atherosclerosis and other heart disease (20 sources) New onset angina; Translations: [Angina pectoris, unspecified] Onset: 02-05-2021 02-05-2021 Chronic Diabetes mellitus with complications (14 sources) Type 2 diabetes mellitus with peripheral angiopathy; Translations: [Type 2 diabetes mellitus with diabetic peripheral angiopathy without gangrene] Onset: 08-09-2020 09-19-2020 Chronic Diabetes mellitus without complication (4 sources) Diabetes mellitus; Translations: [Type 2 diabetes mellitus without complications] Onset: 01-25-2024 10-07-2023 Chronic Disorders of lipid metabolism (7 sources) Mixed hyperlipidemia; Translations: [Mixed hyperlipidemia] Onset: 04-25-2024 04-25-2024 Chronic Esophageal disorders (8 sources) Gastroesophageal reflux disease without esophagitis; Translations: [Gastro-esophageal reflux disease without esophagitis] Onset: 04-26-2024 04-26-2024 Chronic Occlusion or stenosis of precerebral arteries (7 sources) Bilateral stenosis of carotid arteries; Translations: [Occlusion and stenosis of bilateral carotid arteries] Onset: 06-16-2024 06-16-2024 Chronic Other aftercare (3 sources) Patient encounter status; Translations: [Encounter for palliative care] 03-07-2024 Episodic Other ear and sense organ disorders (14 sources) Hearing loss; Translations: [Unspecified hearing loss, unspecified ear] Onset: 10-03-2021 10-03-2021 Chronic Other lower respiratory disease (1 source) Dyspnea on exertion; Translations: [Other forms of dyspnea] 01-07-2024 Episodic Other nervous system disorders (3 sources) Pain due to neoplastic disease; Translations: [Neoplasm related pain (acute) (chronic)] 03-07-2024 Chronic Other nutritional; endocrine; and metabolic disorders (8 sources) Vrzcl-8-igbfyklbfpf deficiency; Translations: [Tvxxw-7-icszvifsxsj deficiency] Onset: 08-09-2020 08-09-2020 Chronic Other nutritional; endocrine; and metabolic disorders (1 source) Tethf-9-cryqyzyrtuq deficiency; Translations: [Sewth-3-tgbwerwmkjt deficiency] Onset: 08-09-2020 Chronic Other nutritional; endocrine; and metabolic disorders (7 sources) Hypocalcemia; Translations: [Hypocalcemia] Onset: 04-25-2024 04-25-2024 Chronic Other nutritional; endocrine; and metabolic disorders (1 source) Hypocalcemia; Translations: [Hypocalcemia] Onset: 04-25-2024 Chronic Peripheral and visceral atherosclerosis (20 sources) Peripheral vascular disease, unspecified; Translations: [Peripheral vascular disease] Onset: 05-24-2019 Chronic Pneumonia (except that caused by tuberculosis or sexually transmitted disease) (1 source) Left lower zone pneumonia; Translations: [Pneumonia, unspecified organism] 09-27-2024 Episodic Spondylosis; intervertebral disc disorders; other back problems (14 sources) Cervical spondylosis; Translations: [Spondylosis without myelopathy or radiculopathy, cervical region] Onset: 12-15-2018 12-15-2018 Chronic Substance-related disorders (7 sources) Cigarette smoker ; Translations: [Nicotine dependence, cigarettes, uncomplicated] Onset: 06-16-2024 06-16-2024 Chronic Thyroid disorders (8 sources) Hypothyroidism; Translations: [Hypothyroidism, unspecified] Onset: 01-25-2024 04-25-2024 Chronic Unclassified (1 source) LANGULAR OBSTRUCTION AND CHRONIC COUGH Onset: 01-26-2024 Unclassified (1 source) Cold Like Symptoms Onset: 08-17-2024 Unclassified (1 source) Subacute cough; Translations: [Subacute cough] Onset: 02-01-2024 Unclassified (1 source) Post-op Problem Onset: 02-01-2024 Unclassified (1 source) congestion, eye issue Onset: 10-19-2023 Past or Other Problems Problem Classification Problem Date Documented Date Episodic/Chronic Alcohol-related disorders (14 sources) Alcohol intoxication; Translations: [Alcohol use, unspecified with intoxication, unspecified] Onset: 08-09-2020 08-09-2020 Episodic Cardiac dysrhythmias (1 source) Tachycardia, unspecified; Translations: [Tachycardia, unspecified] Onset: 10-19-2023 Episodic Fluid and electrolyte disorders (7 sources) Hypokalemia; Translations: [Hypokalemia] Onset: 04-25-2024 04-25-2024 Episodic Fracture of upper limb (14 sources) Closed fracture proximal humerus, four part; Translations: [Other displaced fracture of upper end of left humerus, initial encounter for closed fracture] Onset: 09-14-2018 09-14-2018 Episodic Joint disorders and dislocations; trauma-related (14 sources) Dislocation of joint of upper limb; Translations: [Anterior dislocation of left humerus, initial encounter] Onset: 09-14-2018 09-14-2018 Episodic Malaise and fatigue (2 sources) Other fatigue; Translations: [Weakness] Onset: 02-01-2024 Episodic Mood disorders (14 sources) Mood disorders Onset: 06-05-2021 06-05-2021 Nonspecific chest pain (10 sources) Chest pain; Translations: [Chest pain, unspecified] Onset: 04-25-2024 04-25-2024 Episodic Other circulatory disease (7 sources) Carotid bruit; Translations: [Other specified symptoms and signs involving the circulatory and respiratory systems] Onset: 05-26-2024 05-26-2024 Episodic Other connective tissue disease (15 sources) Full thickness rotator cuff tear; Translations: [Complete rotator cuff tear or rupture of left shoulder, not specified as traumatic] Onset: 12-04-2015 12-04-2015 Episodic Other lower respiratory disease (8 sources) Nodule of lung; Translations: [Solitary pulmonary nodule] Onset: 05-26-2019 05-26-2019 Episodic Other lower respiratory disease (15 sources) Dyspnea; Translations: [Shortness of breath] Onset: 02-05-2021 02-05-2021 Episodic Other lower respiratory disease (3 sources) Solitary pulmonary nodule; Translations: [Solitary pulmonary nodule] Onset: 05-26-2019 Episodic Other lower respiratory disease (1 source) Other forms of dyspnea; Translations: [Other forms of dyspnea] Onset: 01-07-2024 Episodic Other lower respiratory disease (1 source) [...] (1 source) Cough Onset: 10-19-2023 Episodic Other screening for suspected conditions (not mental disorders or infectious disease) (16 sources) CT of chest abnormal; Translations: [Abnormal findings on diagnostic imaging of other specified body structures] Onset: 09-23-2018 Resolved: 07-28-2024 09-23-2018 Chronic Other screening for suspected conditions (not mental disorders or infectious disease) (20 sources) Cardiovascular stress test abnormal; Translations: [Abnormal result of other cardiovascular function study] Onset: 02-05-2021 Episodic Other upper respiratory disease (14 sources) Nasal vestibulitis; Translations: [Other specified disorders of nose and nasal sinuses] Onset: 01-07-2022 01-07-2022 Episodic Other upper respiratory infections (14 sources) Acute sinusitis; Translations: [Acute sinusitis, unspecified] Onset: 08-22-2021 Resolved: 09-05-2021 09-05-2021 Episodic Pathological fracture (14 sources) Pathological fracture of humerus due to osteoporosis; Translations: [Age-related osteoporosis with current pathological fracture, left humerus, initial encounter for fracture] Onset: 09-14-2018 09-14-2018 Episodic Residual codes; unclassified (16 sources) Tobacco user; Translations: [Tobacco use] Onset: 09-23-2018 05-07-2020 Episodic Residual codes; unclassified (20 sources) Genetic disorder carrier; Translations: [Genetic carrier of other disease] Onset: 09-23-2018 Resolved: 03-03-2024 09-23-2018 Episodic Residual codes; unclassified (1 source) Genetic carrier of other disease; Translations: [Genetic carrier of other disease] Onset: 03-03-2024 Episodic Residual codes; unclassified (1 source) Tobacco use; Translations: [Tobacco use] Onset: 05-07-2020 Episodic Spondylosis; intervertebral disc disorders; other back problems (14 sources) Neck pain; Translations: [Cervicalgia] Onset: 12-15-2018 12-15-2018 Episodic Results Test Name Value Interpretation Reference Range Facility CT chest wo [facility] 10-06-2024 CT chest [place] [facility] [place] [address] CT Scan Report Signed Patient: Jazzmine Patel MR#: [id number] : 1950 Acct:[id number] Age/Sex: 73 / F ADM Date: 10/06/24 Loc: Room: Type: [facility] Attending Dr: Urszula Etienne MD Copies to: Urszula Etienne MD Ordering Provider: Urszula Etienne MD Date of Service: 10/06/24 CT/CT chest wo con: C34.92 - Malignant neoplasm of unspecified part of left b... CT CHEST WITHOUT IV CONTRAST: CLINICAL HISTORY: Lung cancer follow-up COMPARISON: Outside CT chest 06/21/2024 no report TECHNIQUE: Spiral images were obtained through the chest without IV contrast. This CT exam was performed using one or more following dose reduction techniques: Automated exposure control, adjustment of the mA and/or kV according to patient size, or use of iterative reconstruction technique. FINDINGS: Mediastinum:Thoracic aorta demonstrates moderate calcification without aneurysm. Pulmonary trunk appears nondilated. No pericardial effusion or lymphadenopathy. The esophagus is grossly unremarkable. Lungs:Emphysema. Presumed posttreatment changes are seen involving the lingula. Finding is similar to the prior study. New noncalcified pulmonary nodule involving the left lower lobe measuring 6 mm series 4 image 41. Calcified granulomas. No pneumothorax or pleural effusion. Abd:No acute findings. Bilateral nephrolithiasis. Soft tissues/Bones: No acute findings. Osseous structures demonstrate degenerative change. CT/CT chest wo con IMPRESSION: Two new noncalcified pulmonary nodules involving the left lung, largest measuring 6 mm within the left lower lobe. Progression of disease cannot BE excluded. Impression dictated by: Jose Kimbrough Jr., D.O.10/06/2024 10:44 AM Dictation Location: [place] [address] Transcribed By: [facility] 10/06/24 1044 Dictated By: Jose Kimbrough Jr, DO 10/06/24 1041 Signed By: 10/06/24 1044 Normal [facility] BASIC METABOLIC PANLon 09-27 Anion gap [Moles/Vol] 13 mmol/L Normal 5-15 [facility] Comment on above: Performed By: #### 4 [id number] ####[facility] ([id number])[address] [place] [id number]#### CBCA, BMP ####[facility] ([id number])[address], [address] [place] [id number] Calcium [Mass/Vol] 6.7 mg/dL Critically low 8.5-10.5 [facility] Comment on above: Performed By: #### 4 [id number] ####[facility] ([id number])[address] [place] [id number]#### CBCA, BMP ####[facility] ([id number])[address], [address] [place] [address] Chloride [Moles/Vol] 101 mmol/L Normal 98-109 [facility] Comment on above: Performed By: #### 4 8066-5 ####[facility] ([id number])[address] [place] [address] 7[address]40#### CBCA, BMP ####[facility] ([id number])[address], [address] [address] CO2 [Moles/Vol] 28 mmol/L Normal 22-32 [facility] Comment on above: Performed By: #### 4 8066-5 ####[facility] ([id number])[address] [place] [address] 44002#### CBCA, BMP ####[facility] ([id number])[address], [address] [place] [address] Creatinine [Mass/Vol] 0.89 mg/dL Normal 0.40-1.00 [facility] Comment on above: Result Comment: METH OD TRACEABLE TO IDMS STANDARD Performed By: #### 4 8066-5 ####[facility] ([id number])[address] [place] [address] 43935#### CBCA, BMP ####[facility] ([id number])[address] [address] GFR/1.73 sq M.predicted among non-blacks MDRD (S/P/Bld) [Vol rate/Area] 69 mL/min/{1.73_m2} Normal >59 [facility] Comment on above: Result Comment: Reported eGFR is based on the CKD-EPI 1 equation that does not use a race coefficient. Performed By: #### 4 8066-5 ####[facility] ([id number])[address] [place] [address] 80934#### CBCA, BMP ####[facility] ([id number])[address] [address] Glucose [Mass/Vol] 147 mg/dL High 65-99 [facility] Comment on above: Performed By: #### 4 8066-5 ####[facility] ([id number])[address] [place] [address] 19038#### CBCA, BMP ####[facility] ([id number])[address], [address] [place] [address] Potassium [Moles/Vol] 3.8 mmol/L Normal 3.5-5.0 [facility] Comment on above: Performed By: #### 4 8066-5 ####[facility] ([id number])[address] [place] [address] 49704#### CBCA, BMP ####[facility] ([id number])[address], [address] [place] [address] Sodium [Moles/Vol] 142 mmol/L Normal 134-146 [facility] Comment on above: Performed By: #### 4 8066-5 ####[facility] ([id number])[address] [place] [address] 66213#### CBCA, BMP ####[facility] ([id number])[address], [address], [place] [address] Urea nitrogen [Mass/Vol] 18 mg/dL Normal 5-27 [facility] Comment on above: Performed By: #### 4 8066-5 ####[facility] ([id number])[address] [place] [address] 06726#### CBCA, BMP ####[facility] ([id number])[address], [address], [place] [address] CBC AND AUTO DIFFon 09-27-20 24 ABSOLUTE BASOPHIL 0.1 X10E9/L Normal 0.0-0.2 [facility] Comment on above: Performed By: #### 4 8066-5 ####[facility] ([id number])[address] [place] [address] 86131#### CBCA, BMP ####[facility] ([id number])[address], [address], [place] [address] ABSOLUTE NEUTROPHIL 5.3 X10E9/L Normal 1.5-6.6 [facility] Comment on above: Performed By: #### 4 8066-5 ####[facility] ([id number])[address] [place] [address] 53262#### CBCA, BMP ####[facility] ([id number])[address], [address] [place] [address] Basophils/100 WBC (Bld) 1.7 % Normal [facility] Comment on above: Performed By: #### 4 8066-5 ####[facility] ([id number])[address] [place] [address] 54834#### CBCA, BMP ####[facility] ([id number])[address], [address] [place] [address] Eosinophils (Bld) [#/Vol] 0.1 10*3/uL Normal 0.0-0.4 [facility] Comment on above: Performed By: #### 4 8066-5 ####[facility] ([id number])[address] [place] [address] 73489#### CBCA, BMP ####[facility] ([id number])[address], [address] [place] [address]398 Eosinophils/100 WBC (Bld) 1.5 % Normal [facility] Comment on above: Performed By: #### 4 8066-5 ####[facility] ([id number])[address] [place] [address] 81073#### CBCA, BMP ####[facility] ([id number])[address], [address] [place] [address] Erythrocyte distribution width (RBC) [Ratio] 14.3 % Normal 11.5-15.0 [facility] Comment on above: Performed By: #### 4 8066-5 ####[facility] ([id number])[address] [place] [address] 64718#### CBCNetta, BMP ####[facility] ([id number])[address], [address], [place] [address] Hematocrit (Bld) [Volume fraction] 37.3 % Normal 35-47 [facility] Comment on above: Performed By: #### 4 8066-5 ####[facility] ([id number])[address] [place] [address] 22589#### CBCNetta, BMP ####[facility] ([id number])[address], [address] [place] [address] Hemoglobin (Bld) [Mass/Vol] 12.5 g/dL Normal 11.7-15.5 [facility] Comment on above: Performed By: #### 4 8066-5 ####[facility] ([id number])[address] [place] [address] 53212#### CBCNetta, BMP ####[facility] ([id number])[address], [address] [place] [address] Lymphocytes (Bld) [#/Vol] 1.1 10*3/uL Normal 1.0-3.5 [facility] Comment on above: Performed By: #### 4 8066-5 ####[facility] ([id number])[address] [place] [address] 23949#### CBCNetta, BMP ####[facility] ([id number])[address], [address] [place] [address] Lymphocytes/100 WBC (Bld) 15.4 % Normal [facility] Comment on above: Performed By: #### 4 8066-5 ####[facility] ([id number])[address] [place] [address] 10090#### CBCA, BMP ####[facility] ([id number])[address], [address] [place] [address] 16393 MCH (RBC) [Entitic mass] 30.4 pg Normal 27-34 [facility] Comment on above: Performed By: #### 4 8066-5 ####[facility] ([id number])[address] [place] [address] 75842#### CBCA, BMP ####[facility] ([id number])[address], [address] [place] [address]9086 MCHC (RBC) [Mass/Vol] 33.6 g/dL Normal 32-36 [facility] Comment on above: Performed By: #### 4 8066-5 ####[facility] ([id number])[address] [place] [address] 68847#### CBCA, BMP ####[facility] ([id number])[address], [address] [place] [address]776 MCV (RBC) [Entitic vol] 91 fL Normal 80-100 P [facility] Comment on above: Performed By: #### 4 8066-5 ####[facility] ([id number])[address] [place] [address] 58190#### CBCA, BMP ####[facility] ([id number])[address] [address] [place] [address]361 Monocytes (Bld) [#/Vol] 0.5 10*3/uL Normal 0-0.9 [facility] Comment on above: Performed By: #### 4 8066-5 ####[facility] ([id number])[address] [place] [address] 90322#### CBCA, BMP ####[facility] ([id number])[address], [address], [place] [address] Monocytes/100 WBC (Bld) 7.3 % Normal [facility] Comment on above: Performed By: #### 4 8066-5 ####[facility] ([id number])[address] [place] [address] 45444#### CBCA, BMP ####[facility] ([id number])[address], [address], [place] [address] Neutrophils/100 WBC (Bld) 74.1 % Normal [facility] Comment on above: Performed By: #### 4 8066-5 ####[facility] ([id number])[address] [place] [address] 35044#### CBCA, BMP ####[facility] ([id number])[address] [address] [place] [address] Platelet mean volume (Bld) [Entitic vol] 7.8 fL Normal 7-12 [facility] Comment on above: Performed By: #### 4 8066-5 ####[facility] ([id number])[address] [place] [address] 34158#### CBCA, BMP ####[facility] ([id number])[address] [address], [place] [address] Platelets (Bld) [#/Vol] 279 10*3/uL Normal 150-450 [facility] Comment on above: Performed By: #### 4 8066-5 ####[facility] ([id number])[address] [place] [address] 38855#### CBCA, BMP ####[facility] ([id number])[address] [address] [address] RBC COUNT 4.12 X10E12/L Normal 3.80-5.20 [facility] Comment on above: Performed By: #### 4 8066-5 ####[facility] ([id number])[address] [place] [address] 69836#### CBCA, BMP ####[facility] ([id number])[address], [address] [place] [address] 26152 WBC (Bld) [#/Vol] 7.1 10*3/uL Normal 4.0-11.0 [facility] Comment on above: Performed By: #### 4 8066-5 ####[facility] ([id number])[address] [place] [address] 90395#### CBCA, BMP ####[facility] ([id number])[address], [address] [place] [address] Fibrin D-dimer DDU (PPP) [Ma ss/Vol]on 09-27-2024 D DIMER 212 ng/mL DDU Normal <255 [facility] Comment on above: Result Comment: Results <255 ng/mL DDU: The presence of a VTE can safely be excluded with a negative D-Dimer result and Wells score. A negative result doesn't exclude the possibility of DIC. The test be repeated along with other diagnostic tests if the patient's symptoms persist or worsen. [email or web address] Performed By: #### 4 8066-5 ####[facility] ([id number])[address] [place] [address] 31125#### CBCA, BMP ####[facility] ([id number])[address], [address] [place] [address] 18270 XR CHEST 2 VWSon 09-27-2024 XR CHEST 2 VWS XR CHEST 2 VWS PA and lateral chest: HISTORY: Chest pain. 2 views of the chest are obtained. Cardiac and mediastinal contours are within normal limits. There is left lower lobe infiltrate or atelectasis. Upper lobe vessels are attenuated suggesting COPD. No pneumothorax seen. IMPRESSION: COPD and left lower lobe infiltrate. Recommend follow-up until complete clearance. Finalized by Garo Ernst MD on 09/27/2024 1:35 PM Normal [facility] SARS/FLU A+B/RSV by NAAT/Mol ecularon 08-17-2024 SARS/FLU A+B/RSV by NAAT/Molecular FLU A PCR [...] operators who are performing tests using either [employer] or [employer] systems and is limited to laboratories that [...] repeat. Fact Sheet for Healthcare Providers: https://www.fda.gov/ media/929509/downloa d Fact Sheet for Patients: https://www.fda.gov/ media/083556/downloa d [facility] Comment on above: Performed By: #### C OVFLR ####[facility] ([id number])[address] [place] [address] XR CHEST 1 VWon 08-17-2024 XR CHEST 1 VW XR CHEST 1 VW Portable chest: HISTORY: Cough. Single view the chest was obtained and compared to prior exam dated 04/18/2024. Cardiac and mediastinal contours are unchanged. Left lower lobe opacity again seen, as visualized on previous CT dated 04/25/2024. No pneumothorax seen. Upper lobe vessels are attenuated suggesting COPD. IMPRESSION: Suspect COPD. Left lower lobe opacity, also visualized previously. Please correlate clinically. Finalized by Garo Ernst MD on 08/17/2024 11:52 AM [facility] Rad - CT Reporton 08-11-2024 Rad - CT Report [id number] 0#1.00[facility] Consultation/Specialist Note on 08-08-2024 Consultation/Specialist Note [id number] 7#1.00[facility] Reporton 07-20-2024 Rad - CT Report [id number] 6#2.00[facility] Consultation/Specialist Note on 07-12-2024 Consultation/Specialist Note [id number] 4[facility] 07-08-2024 Consultation/Specialist Note [id number]# 1[facility]Specialist Note on 06-22-2024 Consultation/Specialist Note [id number] 6#1.00[facility] Consultation/Specialist Note [id number] 5#1.00[facility] Consultation/Specialist Note on 05-26-2024 Consultation/Specialist Note [id number] 59#1.00[facility] Consultation/Specialist Note on 05-19-2024 Consultation/Specialist Note [id number] #1.00[facility] Consultation/Specialist Note on 05-12-2024 Consultation/Specialist Note [id number] 8#1.00[facility] Consultation/Specialist Note [id number] 8#1.00[facility] CBC AND AUTO DIFFon 04-27-20 24 ABSOLUTE BASOPHIL 0.1 X10E9/L Normal 0.0-0.2 [facility] Comment on above: Performed By: #### C JORGE [facility], 06331-0 ####[facility] ([id number])[address] [place] [address] ABSOLUTE NEUTROPHIL 6.3 X10E9/L Normal 1.5-6.6 [facility] Comment on above: Performed By: #### C JORGE CMP, 72557-4 ####[facility] ([id number])[address] [place] [address] 47501 Basophils/100 WBC (Bld) 1.2 % Normal [facility] Comment on above: Performed By: #### C JORGE [facility], ####[facility] ([id number])[address] [place] [address] 66386 Eosinophils (Bld) [#/Vol] 0.2 10*3/uL Normal 0.0-0.4 [facility] Comment on above: Performed By: #### Neymar PATEL CMP, ####[facility] ([id number])[address] [place] [address] 69285 Eosinophils/100 WBC (Bld) 2.8 % Normal [facility] Comment on above: Performed By: #### Neymar PATEL CMP, ####[facility] ([id number])[address] [place] [address] 08961 Erythrocyte distribution width (RBC) [Ratio] 15.1 % High 11.5-15.0 [facility] Comment on above: Performed By: #### Neymar PATEL CMP, ####[facility] ([id number])[address] [place] [address] 29492 Hematocrit (Bld) [Volume fraction] 37.9 % Normal 35-47 [facility] Comment on above: Performed By: #### Neymar PATEL [facility], ####[facility] ([id number])[address] [place] [address] 66133 Hemoglobin (Bld) [Mass/Vol] 13.0 g/dL Normal 11.7-15.5 [facility] Comment on above: Performed By: #### Neymar PATEL CMP, ####[facility] ([id number])[address] [place] [address] 06434 Lymphocytes (Bld) [#/Vol] 0.8 10*3/uL Low 1.0-3.5 [facility] Comment on above: Performed By: #### Neymar PATEL CMP, ####[facility] ([id number])[address] [place] [address] 31199 Lymphocytes/100 WBC (Bld) 10.3 % Normal [facility] Comment on above: Performed By: #### C JORGE, CMP, ####[facility] ([id number])[address] [place] [address] 24106 MCH (RBC) [Entitic mass] 31.0 pg Normal 27-34 [facility] Comment on above: Performed By: #### Neymar PATEL, CMP, ####[facility] ([id number])[address] [place] [address] 01565 MCHC (RBC) [Mass/Vol] 34.4 g/dL Normal 32-36 [facility] Comment on above: Performed By: #### Neymar PATEL CMP, ####[facility] ([id number])[address] [place] [address] 68856 MCV (RBC) [Entitic vol] 90 fL Normal 80-100 [facility] Comment on above: Performed By: #### Neymar PATEL, CMP, ####[facility] ([id number])[address] [place] [address] 45930 Monocytes (Bld) [#/Vol] 0.7 10*3/uL Normal 0-0.9 [facility] Comment on above: Performed By: #### Neymar PATEL, CMP, ####[facility] ([id number])[address] [place] [address] 81483 Monocytes/100 WBC (Bld) 8.4 % Normal [facility] Comment on above: Performed By: #### C JORGE, CMP, ####[facility] ([id number])[address] [place] [address] 26537 Neutrophils/100 WBC (Bld) 77.3 % Normal [facility] Comment on above: Performed By: #### Neymar PATEL, CMP, ####[facility] ([id number])[address] [place] [address] 32045 Platelet mean volume (Bld) [Entitic vol] 8.4 fL Normal 7-12 [facility] Comment on above: Performed By: #### C JORGE, CMP, 98426-4 ####[facility] ([id number])[address] [place] [address] 47866 Platelets (Bld) [#/Vol] 171 10*3/uL Normal 150-450 [facility] Comment on above: Performed By: #### C JORGE, CMP, 73124-5 ####[facility] ([id number])[address] [place] [address] 64327 RBC COUNT 4.21 X10E12/L Normal 3.80-5.20 [facility] Comment on above: Performed By: #### Neymar PATEL, CMP, ####[facility] ([id number])[address] [place] [address] 23767 WBC (Bld) [#/Vol] 8.1 10*3/uL Normal 4.0-11.0 [facility] Comment on above: Performed By: #### Neymar PATEL, CMP, ####[facility] ([id number])[address] [place] [address] 74367 COMPREHENSIVE METABOLIC PANE Kemal 04-27-2024 Albumin [Mass/Vol] 3.0 g/dL Low 3.2-5.3 [facility] Comment on above: Performed By: #### Neymar BCA, CMP, ####[facility] ([id number])[address] [place] [address] 03312 ALP [Catalytic activity/Vol] 43 U/L Normal 39-130 [facility] Comment on above: Performed By: #### Neymar BCA, CMP, ####[facility] ([id number])[address] [place] [address], [place] [address] ALT [Catalytic activity/Vol] 27 U/L Normal 0-31 [facility] Comment on above: Performed By: #### C JORGE [facility], ####[facility] ([id number])[address] [place] [address], [place] [address] Anion gap [Moles/Vol] 7 mmol/L Normal 5-15 [facility] Comment on above: Performed By: #### C JORGE [facility], ####[facility] ([id number])[address] [place] [address] [place] [address] AST [Catalytic activity/Vol] 15 U/L Normal 0-41 [facility] Comment on above: Performed By: #### C JORGE [facility], ####[facility] ([id number])[address] [place] [address], [place] [address] Bilirubin [Mass/Vol] 0.9 mg/dL Normal 0.3-1.2 [facility] Comment on above: Performed By: #### C JORGE [facility], ####[facility] ([id number])[address] [place] [address] [place] [address] Calcium [Mass/Vol] 7.5 mg/dL Low 8.5-10.5 [facility] Comment on above: Performed By: #### C JORGE [facility], ####[facility] ([id number])[address] [place] [address], [place] [address] Chloride [Moles/Vol] 97 mmol/L Low 98-109 [facility] Comment on above: Performed By: #### C JORGE CMP, ####[facility] ([id number])[address] [place] [address], [place] [address] CO2 [Moles/Vol] 29 mmol/L Normal 22-32 [facility] Comment on above: Performed By: #### C MOJGAN PATEL, ####[facility] ([id number])[address] [place] [address] 04029 Creatinine [Mass/Vol] 0.88 mg/dL Normal 0.40-1.00 [facility] Comment on above: Result Comment: METH OD TRACEABLE TO IDMS STANDARD Performed By: #### C JORGE [facility], ####[facility] ([id number])[address] [place] [address] 58839 GFR/1.73 sq M.predicted among non-blacks MDRD (S/P/Bld) [Vol rate/Area] 70 mL/min/{1.73_m2} Normal >59 [facility] Comment on above: Result Comment: Reported eGFR is based on the CKD-EPI 2020 equation that does not use a race coefficient. Performed By: #### C JORGE [facility], ####[facility] ([id number])[address] [place] [address] 43837 Glucose [Mass/Vol] 104 mg/dL High 65-99 [facility] Comment on above: Performed By: #### C JORGE [facility], 00625-6 ####[facility] ([id number])[address] [place] [address] 56120 Potassium [Moles/Vol] 3.1 mmol/L Low 3.5-5.0 [facility] Comment on above: Performed By: #### C JORGE [facility], ####[facility] ([id number])[address] [place] [address] 71574 Protein [Mass/Vol] 5.9 g/dL Low 6.0-8.0 [facility] Comment on above: Performed By: #### C JORGE [facility], ####[facility] ([id number])[address] [place] [address] 63663 Sodium [Moles/Vol] 133 mmol/L Low 134-146 [facility] Comment on above: Performed By: #### C MOJGAN PATEL, 16600-3 ####[facility] ([id number])[address] [place] [address] 18045 Urea nitrogen [Mass/Vol] 20 mg/dL Normal 5-27 [facility] Comment on above: Performed By: #### C MOJGAN PATEL, 83168-0 ####[facility] ([id number])[address] [place] [address] 26342 Glucose Glucometer (BldC) [M ass/Vol]on 04-27-2024 Glucose [Mass/Vol] 325 mg/dL High 65-99 [facility] MAGNESIUMon 04-27-2024 Magnesium [Mass/Vol] 2.2 mg/dL Normal 1.8-2.6 [facility] Comment on above: Performed By: #### C MOJGAN PATEL, [id number] ####[facility] ([id number])[address] [place] [address] 32619 CBC AND AUTO DIFFon 04-26-20 24 ABSOLUTE BASOPHIL 0.0 X10E9/L Normal 0.0-0.2 [facility] Comment on above: Performed By: #### C OVFLR #### [facility] ([id number]) [address] [place] [address] 98748 ABSOLUTE NEUTROPHIL 10.7 X10E9/L High 1.5-6.6 [facility] Comment on above: Performed By: #### C OVFLR #### [facility] ([id number]) [address] [place] [address] 31717 Basophils/100 WBC (Bld) 0.3 % Normal P [facility] Comment on above: Performed By: #### C OVFLR #### [facility] [facility] ([id number]) [address] [place] [address] [place] [address] Eosinophils (Bld) [#/Vol] 0.1 10*3/uL Normal 0.0-0.4 [facility] Comment on above: Performed By: #### C OVFLR #### [facility] ([id number]) [address] [place] [address] 56119 Eosinophils/100 WBC (Bld) 0.7 % Normal [facility] Comment on above: Performed By: #### C OVFLR #### [facility] ([id number]) [address] [place] [address] 50163 Erythrocyte distribution width (RBC) [Ratio] 14.8 % Normal 11.5-15.0 [facility] Comment on above: Performed By: #### C OVFLR #### [facility] ([id number]) [address] [place] [address] 84576 Hematocrit (Bld) [Volume fraction] 41.2 % Normal 35-47 [facility] Comment on above: Performed By: #### C OVFLR #### [facility] ([id number]) [address] [place] [address] 73933 Hemoglobin (Bld) [Mass/Vol] 14.0 g/dL Normal 11.7-15.5 [facility] Comment on above: Performed By: #### C OVFLR #### [facility] ([id number]) [address] [place] [address] 85551 Lymphocytes (Bld) [#/Vol] 0.5 10*3/uL Low 1.0-3.5 [facility] Comment on above: Performed By: #### C OVFLR #### [facility] ([id number]) [address] [place] [address] 12220 Lymphocytes/100 WBC (Bld) 4.4 % Normal [facility] Comment on above: Performed By: #### C OVFLR #### [facility] ([id number]) [address] [place] [address] 75978 MCH (RBC) [Entitic mass] 30.9 pg Normal 27-34 [facility] Comment on above: Performed By: #### C OVFLR #### [facility] ([id number]) [address] [place] [address] 72278 MCHC (RBC) [Mass/Vol] 33.9 g/dL Normal 32-36 [facility] Comment on above: Performed By: #### C OVFLR #### [facility] ([id number]) [address] [place] [address] 71871 MCV (RBC) [Entitic vol] 91 fL Normal 80-100 [facility] Comment on above: Performed By: #### C OVFLR #### [facility] ([id number]) [address] [place] [address] 58433 Monocytes (Bld) [#/Vol] 1.0 10*3/uL High 0-0.9 [facility] Comment on above: Performed By: #### C OVFLR #### [facility] ([id number]) [address] [place] [address] 08693 Monocytes/100 WBC (Bld) 7.8 % Normal [facility] Comment on above: Performed By: #### C OVFLR #### [facility] ([id number]) [address] [place] [address] 67861 Neutrophils/100 WBC (Bld) 86.8 % Normal [facility] Comment on above: Performed By: #### C OVFLR #### [facility] ([id number]) [address] [place] [address] 79784 Platelet mean volume (Bld) [Entitic vol] 8.3 fL Normal 7-12 [facility] Comment on above: Performed By: #### C OVFLR #### [facility] ([id number]) [address] [place] [address] 26122 Platelets (Bld) [#/Vol] 168 10*3/uL Normal 150-450 [facility] Comment on above: Performed By: #### C OVFLR #### [facility] ([id number]) [address] [place] [address] 44026 RBC COUNT 4.52 X10E12/L Normal 3.80-5.20 [facility] Comment on above: Performed By: #### C OVFLR #### [facility] ([id number]) [address] [place] [address] 11288 WBC (Bld) [#/Vol] 12.3 10*3/uL High 4.0-11.0 [facility] Comment on above: Performed By: #### C OVFLR #### [facility] ([id number]) [address] [place] [address] 25927 COMPREHENSIVE METABOLIC PANE Kemal 04-26-2024 Albumin [Mass/Vol] 3.1 g/dL Low 3.2-5.3 [facility] Comment on above: Performed By: #### C OVFLR #### [facility] ([id number]) [address] [place] [address] 07417 ALP [Catalytic activity/Vol] 43 U/L Normal 39-130 [facility] Comment on above: Performed By: #### C OVFLR #### [facility] ([id number]) [address] [place] [address] 71310 ALT [Catalytic activity/Vol] 36 U/L High 0-31 [facility] Comment on above: Result Comment: SPEC IMEN HEMOLYZED, RESULTS INCREASED Performed By: #### C OVFLR #### [facility] ([id number]) [address] [place] [address] 13901 Anion gap [Moles/Vol] 10 mmol/L Normal 5-15 [facility] Comment on above: Performed By: #### C OVFLR #### [facility] ([id number]) [address] [place] [address] 27182 AST [Catalytic activity/Vol] 21 U/L Normal 0-41 [facility] Comment on above: Result Comment: SPEC IMEN HEMOLYZED, RESULTS INCREASED Performed By: #### C OVFLR #### [facility] ([id number]) [address] [place] [address] 85956 Bilirubin [Mass/Vol] 1.7 mg/dL High 0.3-1.2 [facility] Comment on above: Result Comment: RESU LTS QUESTIONABLE DUE TO HEMOLYSIS Performed By: #### C OVFLR #### [facility] ([id number]) [address] [place] [address] 07283 Calcium [Mass/Vol] 7.2 mg/dL Low 8.5-10.5 [facility] Comment on above: Performed By: #### C OVFLR #### [facility] ([id number]) [address] [place] [address] 68376 Chloride [Moles/Vol] 96 mmol/L Low 98-109 [facility] Comment on above: Performed By: #### C OVFLR #### [facility] ([id number]) [address] [place] [address] 99077 CO2 [Moles/Vol] 29 mmol/L Normal 22-32 [facility] Comment on above: Performed By: #### C OVFLR #### [facility] ([id number]) [address] [place] [address] 98569 Creatinine [Mass/Vol] 0.88 mg/dL Normal 0.40-1.00 [facility] Comment on above: Result Comment: METH OD TRACEABLE TO IDMS STANDARD Performed By: #### C OVFLR #### [facility] ([id number]) [address] [place] [address] 75891 GFR/1.73 sq M.predicted among non-blacks MDRD (S/P/Bld) [Vol rate/Area] 70 mL/min/{1.73_m2} Normal >59 [facility] Comment on above: Result Comment: Reported eGFR is based on the CKD-EPI 2020 equation that does not use a race coefficient. Performed By: #### C OVFLR #### [facility] ([id number]) [address] [place] [address] 37963 Glucose [Mass/Vol] 134 mg/dL High 65-99 [facility] Comment on above: Performed By: #### C OVFLR #### [facility] ([id number]) [address] [place] [address] 03026 Potassium [Moles/Vol] 3.8 mmol/L Normal 3.5-5.0 [facility] Comment on above: Result Comment: SPEC IMEN HEMOLYZED, RESULTS INCREASED Performed By: #### C OVFLR #### [facility] ([id number]) [address] [place] [address] 18190 Protein [Mass/Vol] 5.9 g/dL Low 6.0-8.0 [facility] Comment on above: Performed By: #### C OVFLR #### [facility] ([id number]) [address] [place] [address] 52779 Sodium [Moles/Vol] 135 mmol/L Normal 134-146 [facility] Comment on above: Performed By: #### C OVFLR #### [facility] ([id number]) [address] [place] [address] 31897 Urea nitrogen [Mass/Vol] 16 mg/dL Normal 5-27 [facility] Comment on above: Performed By: #### C OVFLR #### [facility] ([id number]) [address] [place] [address] 06741 Glucose Glucometer (BldC) [M ass/Vol]on 04-26-2024 Glucose [Mass/Vol] 118 mg/dL High 65-99 [facility] Glucose [Mass/Vol] 367 mg/dL High 65-99 [facility] BEDSIDE GLUCOSE LAB >500 Critically high 65-99 [facility] Comment on above: Result Comment: SEE LAB RESULTS FOR CONFIRMATION Glucose [Mass/Vol] 230 mg/dL High 65-99 [facility] Glucose [Mass/Vol] 106 mg/dL High 65-99 [facility] LIPASEon 04-26-2024 Lipase [Catalytic activity/Vol] 100 U/L High 17-40 [facility] Comment on above: Performed By: #### C OVFLR #### [facility] ([id number]) [address] [place] [address] 18044 Lactate (P dannie) [Moles/Vol]o n 04-26-2024 LACTATE W/REFLEX 1.7 mmol/L Normal 0.4-2.0 [facility] Comment on above: Result Comment: Result did not trigger repeat Lactate, re-order if needed. Performed By: #### 3 2133-1 ####[facility] ([id number])[address] [place] [address] 09922 MAGNESIUMon 04-26-2024 Magnesium [Mass/Vol] 1.9 mg/dL Normal 1.8-2.6 [facility] Comment on above: Result Comment: SPEC IMEN HEMOLYZED, RESULTS INCREASED Performed By: #### C OVFLR #### [facility] ([id number]) [address] [place] [address] 56629 Troponin I.cardiac High sens itivity method [Mass/Vol]on 04-26-2024 1 HOUR TROP I, HIGH SENSITIVITY 10 ng/L Normal <16 [facility] Comment on above: Performed By: #### C OVFLR #### [facility] ([id number]) [address] [place] [address] 79658 TROPONIN I, HIGH SENSITIVITY 9 ng/L Normal <16 [facility] Comment on above: Performed By: #### C OVFLR #### [facility] ([id number]) [address] [place] [address] 02964 ACUTE HEPATITIS PANELon 07-0 ANTI HCV W/PCR REFLX Non-Reactive Normal NRCT Pr [facility] Comment on above: Result Comment: If recent infection suspected, recommend repeat testing (>2 months). Kktjyo-wv-mhtxbk ratio is <0.80. Performed By: #### C BCA, 20464-0, BMP, 96033-3, 07207-5 #### [facility] ([id number]) [address] [place] [address] 05934 HEPATITIS A IGM Non-Reactive Normal NRCT [facility] Comment on above: Performed By: #### C BCA, 10569-2, BMP, 39201-6, 75258-6 #### [facility] ([id number]) [address] [place] [address] 78676 HEPATITIS B CORE IGM Negative Normal NEG [facility] Comment on above: Performed By: #### C BCA, 92486-4, BMP, 33908-6, 76930-5 #### [facility] ([id number]) [address] [place] [address] 88139 HEPATITIS B SURF AG Negative Normal NEG [facility] Comment on above: Performed By: #### C BCA, 11437-7, BMP, 18905-0, 30612-4 #### [facility] ([id number]) [address] [place] [address] 57623 CBC AND AUTO DIFFon 04-25-20 24 ABSOLUTE BASOPHIL 0.1 X10E9/L Normal 0.0-0.2 [facility] Comment on above: Performed By: #### Neymar PATEL, 84822-6, BMP, 72815-3, 46506-2 #### [facility] ([id number]) [address] [place] [address] 86873 ABSOLUTE NEUTROPHIL 12.8 X10E9/L High 1.5-6.6 [facility] Comment on above: Performed By: #### Neymar PATEL, 85935-6, BMP, 91698-7, 09161-1 #### [facility] ([id number]) [address] [place] [address] 33314 Basophils/100 WBC (Bld) 0.7 % Normal [facility] Comment on above: Performed By: #### Neymar PATEL, 40184-5, BMP, 99937-6, 70037-1 #### [facility] ([id number]) [address] [place] [address] 68629 Eosinophils (Bld) [#/Vol] 0.2 10*3/uL Normal 0.0-0.4 [facility] Comment on above: Performed By: #### Neymar PATEL, 59649-7, BMP, 84609-4, 65815-6 #### [facility] ([id number]) [address] [place] [address] 52851 Eosinophils/100 WBC (Bld) 1.3 % Normal [facility] Comment on above: Performed By: #### Neymar PATEL, 67125-3, BMP, 50025-7, 73823-7 #### [facility] ([id number]) [address] [place] [address] 89706 Erythrocyte distribution width (RBC) [Ratio] 14.9 % Normal 11.5-15.0 [facility] Comment on above: Performed By: #### Neymar PATEL, 66744-4, BMP, 79956-8, 08104-3 #### [facility] ([id number]) [address] [place] [address] 48865 Hematocrit (Bld) [Volume fraction] 45.4 % Normal 35-47 [facility] Comment on above: Performed By: #### C JORGE, 04364-0, BMP, 20072-1, 21922-0 #### [facility] ([id number]) [address] [place] [address] 32833 Hemoglobin (Bld) [Mass/Vol] 15.7 g/dL High 11.7-15.5 [facility] Comment on above: Performed By: #### C JORGE, 13741-8, BMP, 41584-1, 80074-4 #### [facility] ([id number]) [address] [place] [address] 69189 Lymphocytes (Bld) [#/Vol] 0.9 10*3/uL Low 1.0-3.5 [facility] Comment on above: Performed By: #### C JORGE, 75711-4, BMP, 41451-1, 84127-7 #### [facility] ([id number]) [address] [place] [address] 77642 Lymphocytes/100 WBC (Bld) 6.2 % Normal [facility] Comment on above: Performed By: #### C JORGE, 17383-7, BMP, 04930-0, 41684-1 #### [facility] ([id number]) [address] [place] [address] 46542 MCH (RBC) [Entitic mass] 30.8 pg Normal 27-34 [facility] Comment on above: Performed By: #### Neymar PATEL, 92047-7, BMP, 87783-6, 78661-2 #### [facility] ([id number]) [address] [place] [address] 53320 MCHC (RBC) [Mass/Vol] 34.6 g/dL Normal 32-36 [facility] Comment on above: Performed By: #### C BCA, 50850-2, BMP, 80903-5, 02751-8 #### [facility] ([id number]) [address] [place] [address] 45248 MCV (RBC) [Entitic vol] 89 fL Normal 80-100 [facility] Comment on above: Performed By: #### Neymar PATEL, 44266-3, BMP, 85255-4, 87592-9 #### [facility] ([id number]) [address] [place] [address] 89848 Monocytes (Bld) [#/Vol] 0.6 10*3/uL Normal 0-0.9 [facility] Comment on above: Performed By: #### Neymar PATEL, 97740-3, BMP, 17449-3, 62761-8 #### [facility] ([id number]) [address] [place] [address] 65111 Monocytes/100 WBC (Bld) 4.3 % Normal [facility] Comment on above: Performed By: #### Neymar PATEL, 76946-5, BMP, 63114-0, 52708-4 #### [facility] ([id number]) [address] [place] [address] 78712 Neutrophils/100 WBC (Bld) 87.5 % Normal [facility] Comment on above: Performed By: #### Neymar PATEL, 80542-6, BMP, 43029-9, 03414-1 #### [facility] ([id number]) [address] [place] [address] 78021 Platelet mean volume (Bld) [Entitic vol] 7.8 fL Normal 7-12 [facility] Comment on above: Performed By: #### Neymar PATEL, 61774-0, BMP, 10029-9, 90508-7 #### [facility] ([id number]) [address] [place] [address] 70750 Platelets (Bld) [#/Vol] 203 10*3/uL Normal 150-450 [facility] Comment on above: Performed By: #### C BCA, 23033-8, BMP, 01420-8, 80127-4 #### [facility] ([id number]) [address] [place] [address] 42479 RBC COUNT 5.11 X10E12/L Normal 3.80-5.20 [facility] Comment on above: Performed By: #### C BCA, 01953-4, BMP, 87294-3, 79530-8 #### [facility] ([id number]) [address] [place] [address] 43126 WBC (Bld) [#/Vol] 14.7 10*3/uL High 4.0-11.0 [facility] Comment on above: Performed By: #### Neymar BCA, 06703-5, BMP, 63433-4, 32586-7 #### [facility] ([id number]) [address] [place] [address] 66449 COMPREHENSIVE METABOLIC PANE Kemal 04-25-2024 Albumin [Mass/Vol] 3.6 g/dL Normal 3.2-5.3 [facility] Comment on above: Performed By: #### C BCA, 43911-4, BMP, 87651-9, 94023-1 #### [facility] ([id number]) [address] [place] [address] 78734 ALP [Catalytic activity/Vol] 56 U/L Normal 39-130 [facility] Comment on above: Performed By: #### C BCA, 58739-9, BMP, 17688-6, 23922-1 #### [facility] ([id number]) [address] [place] [address] 46603 ALT [Catalytic activity/Vol] 62 U/L High 0-31 [facility] Comment on above: Performed By: #### C BCA, 69864-4, BMP, 79076-9, 40223-9 #### [facility] ([id number]) [address] [place] [address] 88600 Anion gap [Moles/Vol] 8 mmol/L Normal 5-15 [facility] Comment on above: Performed By: #### C BCA, 69461-4, BMP, 48499-1, 38228-8 #### [facility] ([id number]) [address] [place] [address] 36491 AST [Catalytic activity/Vol] 38 U/L Normal 0-41 [facility] Comment on above: Performed By: #### Neymar BCA, 57820-3, BMP, 49580-4, 27948-9 #### [facility] ([id number]) [address] [place] [address] 73342 Bilirubin [Mass/Vol] 0.5 mg/dL Normal 0.3-1.2 [facility] Comment on above: Performed By: #### Neymar BCA, 60164-6, BMP, 32901-0, 59284-0 #### [facility] ([id number]) [address] [place] [address] 93422 Calcium [Mass/Vol] 6.5 mg/dL Critically low 8.5-10.5 [facility] Comment on above: Performed By: #### Neymar BCA, 75827-4, BMP, 93023-6, 82576-1 #### [facility] ([id number]) [address] [place] [address] 95581 Chloride [Moles/Vol] 102 mmol/L Normal 98-109 [facility] Comment on above: Performed By: #### Neymar BCA, 10074-2, BMP, 70007-2, 20250-5 #### [facility] ([id number]) [address] [place] [address] 06291 CO2 [Moles/Vol] 29 mmol/L Normal 22-32 [facility] Comment on above: Performed By: #### C BCA, 98030-8, BMP, 34202-1, 11075-9 #### [facility] ([id number]) [address] [place] [address] 76643 Creatinine [Mass/Vol] 1.05 mg/dL High 0.40-1.00 [facility] Comment on above: Result Comment: METH OD TRACEABLE TO IDMS STANDARD Performed By: #### C BCA, 38943-1, BMP, 72588-7, 58400-0 #### [facility] ([id number]) [address] [place] [address] 11976 GFR/1.73 sq M.predicted among non-blacks MDRD (S/P/Bld) [Vol rate/Area] 57 mL/min/{1.73_m2} Low >59 [facility] Comment on above: Result Comment: Reported eGFR is based on the CKD-EPI 2020 equation that does not use a race coefficient. Performed By: #### C BCA, 25267-5, BMP, 81528-0, 14349-0 #### [facility] ([id number]) [address] [place] [address] 65656 Glucose [Mass/Vol] 147 mg/dL High 65-99 [facility] Comment on above: Performed By: #### C BCA, 15641-6, BMP, 82693-2, 07356-4 #### [facility] ([id number]) [address] [place] [address] 40115 Potassium [Moles/Vol] 3.3 mmol/L Low 3.5-5.0 [facility] Comment on above: Performed By: #### C BCA, 39592-6, BMP, 91168-5, 58601-1 #### [facility] ([id number]) [address] [place] [address] 59088 Protein [Mass/Vol] 6.6 g/dL Normal 6.0-8.0 [facility] Comment on above: Performed By: #### C BCA, 67414-4, BMP, 05166-3, 72376-8 #### [facility] ([id number]) [address] [place] [address] 39124 Sodium [Moles/Vol] 139 mmol/L Normal 134-146 [facility] Comment on above: Performed By: #### C BCA, 16955-0, BMP, 27242-4, 76652-8 #### [facility] ([id number]) [address] [place] [address] 68899 Urea nitrogen [Mass/Vol] 22 mg/dL Normal 5-27 [facility] Comment on above: Performed By: #### C BCA, 26270-7, BMP, 20797-2, 06691-3 #### [facility] ([id number]) [address] [place] [address] CTA ABD AND PELVISon CT CTA [...] Chapman MD on 04/25/2024 10:10 AM Normal [facility] CT CTA CHESTon 04-25-2024 CT CTA CHEST [...] Gaytan MD on 04/25/2024 9:54 AM Normal [facility] Glucose Glucometer (BldC) [M ass/Vol]on 04-25-2024 Glucose [Mass/Vol] 162 mg/dL High 65-99 [facility] LIPASEon 04-25-2024 Lipase [Catalytic activity/Vol] 54 U/L High 17-40 [facility] Comment on above: Performed By: #### C JORGE, 36713-3, BMP, 51501-3, 15643-7 #### [facility] ([id number]) [address] [place] [address] 12104 MAGNESIUMon 04-25-2024 Magnesium [Mass/Vol] 1.9 mg/dL Normal 1.8-2.6 [facility] Comment on above: Performed By: #### Neymar PATEL, 40922-6, BMP, 91482-2, 52881-9 #### [facility] ([id number]) [address] [place] [address] 17141 Natriuretic peptide B [Mass/ Vol]on 04-25-2024 Natriuretic peptide B (Bld) [Mass/Vol] 47 pg/mL Normal <100.0 [facility] Comment on above: Performed By: #### Neymar PATEL, 87280-8, BMP, 38976-8, 22317-2 #### [facility] ([id number]) [address] [place] [address] 57076 PROTIME AND INRon 04-25-2024 INR Coag (PPP) [Relative time] 1.0 {INR} Normal 0.8-1.1 [facility] Comment on above: Performed By: #### Neymar PATEL, 06290-7, BMP, 80768-7, 94956-7 #### [facility] ([id number]) [address] [place] [address] 75990 PT Coag (PPP) [Time] 11.9 s Normal 9.8-13.2 [facility] Comment on above: Result Comment: NEW REFERENCE RANGE Performed By: #### C JORGE, 86908-7, DMITRY, 93358-6, 32844-9 #### [facility] ([id number]) [address] [place] [address]190 Procalcitonin IA [Mass/Vol]o n 04-25-2024 PROCALCITONIN 0.08 ng/mL High <0.05 [facility] Comment on above: Result Comment: NOTE <0.50 ng/mL - Low risk of severe sepsis and/or septic shock. <2.00 ng/mL - Recommend retesting within 6-24 hours. >2.00 ng/mL - High risk of sepsis and/or septic shock. Performed By: #### C JORGE, 11103-7, DMITRY, 27180-4, 54404-7 #### [facility] ([id number]) [address] [place] [address] 41081 Troponin I.cardiac High sens itivity method [Mass/Vol]on 04-25-2024 1 HOUR TROP I, HIGH SENSITIVITY 10 ng/L Normal <16 [facility] Comment on above: Performed By: #### C OVFLR #### [facility] ([id number]) [address] [place] [address] 41237 TROPONIN I, HIGH SENSITIVITY 11 ng/L Normal <16 [facility] Comment on above: Performed By: #### C JORGE, 21696-0, DMITRY, 63797-7, 80001-9 #### [facility] ([id number]) [address] [place] [address] 36551 Vitamin D+Metabolites [Mass/ Vol]on 04-25-2024 VITAMIN D 25 HYD TOT 23.3 ng/mL Low 30-100 [facility] Comment on above: Result Comment: Vitamin D status 25 [place] Vitamin D Deficiency <20 ng/mL Insufficiency 20-29 ng/mL Sufficiency 30-100 ng/mL Toxicity >100 ng/mL NOTE: A pediatric reference range has not been established by the director of group counseling program of this kit. The [place] [employer] recommends a Vitamin D level of = or >20ng/mL in infants and children. Performed By: #### C BCA, 86812-7, BMP, 15876-6, 16760-7 #### [facility] ([id number]) [address] [place] [address] 17245 aPTT Coag (PPP) [Time]on aPTT Coag (Bld) [Time] 26 s Normal 26-37 [facility] Comment on above: Result Comment: NEW REFERENCE RANGE Performed By: #### C BCA, 89715-7, BMP, 72690-6, 05043-5 #### [facility] ([id number]) [address] [place] [address] [employer] 04-21-2024 Outside Records [id number] #1.00OTGTIFF [facility] Outside Records [id number] #1.00OTGTIFF [facility] FL SWALLOW MOTILITY FUNCTION on 04-20-2024 FL [...] Granger MD on 04/20/2024 3:12 PM Normal [facility] CBC AND AUTO DIFFon 04-18-20 ABSOLUTE BASOPHIL 0.1 X10E9/L Normal 0.0-0.2 [facility] Comment on above: Performed By: #### Neymar PATEL, 53010-9, BMP, 82698-6, 89408-7 #### [facility] ([id number]) [address] [place] [address] 81555 ABSOLUTE NEUTROPHIL 7.4 X10E9/L High 1.5-6.6 [facility] Comment on above: Performed By: #### Neymar PATEL, 05925-3, BMP, 67942-9, 05961-1 #### [facility] ([id number]) [address] [place] [address] 94028 Basophils/100 WBC (Bld) 0.7 % Normal [facility] Comment on above: Performed By: #### Neymar PATEL, 34457-5, BMP, 49782-2, 25159-6 #### [facility] ([id number]) [address] [place] [address] 99827 Eosinophils (Bld) [#/Vol] 0.0 10*3/uL Normal 0.0-0.4 [facility] Comment on above: Performed By: #### Neymar PATEL, 37343-3, BMP, 14738-0, 19647-3 #### [facility] ([id number]) [address] [place] [address] 64646 Eosinophils/100 WBC (Bld) 0.1 % Normal [facility] Comment on above: Performed By: #### Neymar PATEL, 82337-0, BMP, 28184-7, 52347-7 #### [facility] ([id number]) [address] [place] [address] 51558 Erythrocyte distribution width (RBC) [Ratio] 14.9 % Normal 11.5-15.0 [facility] Comment on above: Performed By: #### C BCA, 80153-8, BMP, 26647-2, 21824-0 #### [facility] ([id number]) [address] [place] [address] 99926 Hematocrit (Bld) [Volume fraction] 40.3 % Normal 35-47 [facility] Comment on above: Performed By: #### Nemyar BCA, 44591-5, BMP, 60515-4, 64068-2 #### [facility] ([id number]) [address] [place] [address] 43982 Hemoglobin (Bld) [Mass/Vol] 13.5 g/dL Normal 11.7-15.5 [facility] Comment on above: Performed By: #### Neymar BCA, 32349-6, BMP, 76096-3, 16328-0 #### [facility] ([id number]) [address] [place] [address] 57362 Lymphocytes (Bld) [#/Vol] 0.6 10*3/uL Low 1.0-3.5 [facility] Comment on above: Performed By: #### Neymar PATEL, 43332-8, BMP, 63472-4, 04485-8 #### [facility] ([id number]) [address] [place] [address] 16219 Lymphocytes/100 WBC (Bld) 6.9 % Normal [facility] Comment on above: Performed By: #### C BCA, 01352-8, BMP, 81419-5, 71882-7 #### [facility] ([id number]) [address] [place] [address] 41283 MCH (RBC) [Entitic mass] 30.5 pg Normal 27-34 [facility] Comment on above: Performed By: #### Neymar BCA, 35411-0, BMP, 03266-1, 05627-6 #### [facility] ([id number]) [address] [place] [address] MCHC (RBC) [Mass/Vol] 33.6 g/dL Normal 32-36 [facility] Comment on above: Performed By: #### Neymar PATEL, 70147-3, BMP, 44084-5, 26617-6 #### [facility] ([id number]) [address] [place] [address] 30551 MCV (RBC) [Entitic vol] 91 fL Normal 80-100 [facility] Comment on above: Performed By: #### Neymar PATEL, 36347-9, BMP, 67984-0, 94842-9 #### [facility] ([id number]) [address] [place] [address] 20110 Monocytes (Bld) [#/Vol] 0.1 10*3/uL Normal 0-0.9 [facility] Comment on above: Performed By: #### Neymar PATEL, 28128-7, BMP, 38586-7, 51796-7 #### [facility] ([id number]) [address] [place] [address] 34147 Monocytes/100 WBC (Bld) 1.6 % Normal [facility] Comment on above: Performed By: #### Neymar PATEL, 61516-5, BMP, 75684-0, 40095-9 #### [facility] ([id number]) [address] [place] [address] 43364 Neutrophils/100 WBC (Bld) 90.7 % Normal [facility] Comment on above: Performed By: #### Neymar PATEL, 41714-4, BMP, 24098-2, 24077-6 #### [facility] ([id number]) [address] [place] [address] 83493 Platelet mean volume (Bld) [Entitic vol] 8.2 fL Normal 7-12 [facility] Comment on above: Performed By: #### Neymar PATEL, 99164-4, BMP, 16451-5, 78587-7 #### [facility] ([id number]) [address] [place] [address] 86428 Platelets (Bld) [#/Vol] 220 10*3/uL Normal 150-450 [facility] Comment on above: Performed By: #### Neymar BCA, 73453-8, BMP, 72001-0, 06306-4 #### [facility] ([id number]) [address] [place] [address] 55824 RBC COUNT 4.44 X10E12/L Normal 3.80-5.20 [facility] Comment on above: Performed By: #### Neymar BCA, 05271-5, BMP, 44412-2, 31476-2 #### [facility] ([id number]) [address] [place] [address] 79594 WBC (Bld) [#/Vol] 8.1 10*3/uL Normal 4.0-11.0 [facility] Comment on above: Performed By: #### C BCA, 91932-9, BMP, 01619-3, 78560-1 #### [facility] ([id number]) [address] [place] [address] 16588 COMPREHENSIVE METABOLIC PANE Kemal 04-18-2024 Albumin [Mass/Vol] 3.9 g/dL Normal 3.2-5.3 [facility] Comment on above: Performed By: #### Neymar BCA, 93303-3, BMP, 47045-8, 63791-2 #### [facility] ([id number]) [address] [place] [address] 15105 ALP [Catalytic activity/Vol] 68 U/L Normal 39-130 [facility] Comment on above: Performed By: #### Neymar BCA, 08351-4, BMP, 59330-3, 18535-9 #### [facility] ([id number]) [address] [place] [address] ALT [Catalytic activity/Vol] 31 U/L Normal 0-31 [facility] Comment on above: Performed By: #### C BCA, 33801-7, BMP, 82415-4, 06476-3 #### [facility] ([id number]) [address] [place] [address] 71673 Anion gap [Moles/Vol] 11 mmol/L Normal 5-15 [facility] Comment on above: Performed By: #### C BCA, 22672-0, BMP, 28999-8, 01244-6 #### [facility] ([id number]) [address] [place] [address] 16240 AST [Catalytic activity/Vol] 25 U/L Normal 0-41 [facility] Comment on above: Performed By: #### Neymar BCA, 37274-4, BMP, 42229-5, 29284-7 #### [facility] ([id number]) [address] [place] [address] 30829 Bilirubin [Mass/Vol] 0.7 mg/dL Normal 0.3-1.2 [facility] Comment on above: Performed By: #### C BCA, 23111-9, BMP, 11322-2, 11738-0 #### [facility] ([id number]) [address] [place] [address] 57449 Calcium [Mass/Vol] 7.0 mg/dL Low 8.5-10.5 [facility] Comment on above: Performed By: #### C BCA, 72029-9, BMP, 86459-4, 78337-9 #### [facility] ([id number]) [address] [place] [address] 39763 Chloride [Moles/Vol] 98 mmol/L Normal 98-109 [facility] Comment on above: Performed By: #### Neymar BCA, 66173-6, BMP, 08015-8, 68777-6 #### [facility] ([id number]) [address] [place] [address] 03023 CO2 [Moles/Vol] 24 mmol/L Normal 22-32 [facility] Comment on above: Performed By: #### C BCA, 40698-8, BMP, 68320-7, 62615-9 #### [facility] ([id number]) [address] [place] [address] 74952 Creatinine [Mass/Vol] 1.03 mg/dL High 0.40-1.00 [facility] Comment on above: Result Comment: METH OD TRACEABLE TO IDMS STANDARD Performed By: #### C BCA, 38719-6, BMP, 92186-8, 11488-5 #### [facility] ([id number]) [address] [place] [address] 30395 GFR/1.73 sq M.predicted among non-blacks MDRD (S/P/Bld) [Vol rate/Area] 58 mL/min/{1.73_m2} Low >59 [facility] Comment on above: Result Comment: Reported eGFR is based on the CKD-EPI 2020 equation that does not use a race coefficient. Performed By: #### C BCA, 40021-4, BMP, 59957-0, 29101-9 #### [facility] ([id number]) [address] [place] [address] 30565 Glucose [Mass/Vol] 391 mg/dL High 65-99 [facility] Comment on above: Performed By: #### C BCA, 98828-8, BMP, 42224-3, 86492-1 #### [facility] ([id number]) [address] [place] [address] 80876 Potassium [Moles/Vol] 3.8 mmol/L Normal 3.5-5.0 [facility] Comment on above: Performed By: #### C BCA, 81441-8, BMP, 20031-4, 01648-0 #### [facility] ([id number]) [address] [place] [address] 95856 Protein [Mass/Vol] 6.9 g/dL Normal 6.0-8.0 [facility] Comment on above: Performed By: #### C BCA, 66758-2, BMP, 40740-2, 95096-7 #### [facility] ([id number]) [address] [place] [address] 95746 Sodium [Moles/Vol] 133 mmol/L Low 134-146 [facility] Comment on above: Performed By: #### C BCA, 37990-6, BMP, 14178-8, 58621-6 #### [facility] ([id number]) [address] [place] [address] 17844 Urea nitrogen [Mass/Vol] 26 mg/dL Normal 5-27 [facility] Comment on above: Performed By: #### C BCA, 57139-8, BMP, 19014-8, 85798-3 #### [facility] ([id number]) [address] [place] [address] 31321 Fibrin D-dimer DDU (PPP) [Ma ss/Vol]on 04-18-2024 D DIMER 179 ng/mL DDU Normal <255 [facility] Comment on above: Result Comment: Results <255 ng/mL DDU: The presence of a VTE can safely be excluded with a negative D-Dimer result and Wells score. A negative result doesn't exclude the possibility of DIC. The test be repeated along with other diagnostic tests if the patient's symptoms persist or worsen. [email or web address] Performed By: #### C BCA, 63007-1, BMP, 05048-6, 83809-7 #### [facility] ([id number]) [address] [place] [address] 50452 MAGNESIUMon 04-18-2024 Magnesium [Mass/Vol] 1.9 mg/dL Normal 1.8-2.6 [facility] Comment on above: Performed By: #### C JORGE, 36981-7, BMP, 40264-4, 68315-8 #### [facility] ([id number]) [address] [place] [address] 27559 Troponin I.cardiac High sens itivity method [Mass/Vol]on 04-18-2024 1 HOUR TROP I, HIGH SENSITIVITY 9 ng/L Normal <16 [facility] Comment on above: Performed By: #### C JORGE, 91236-9, BMP, 14035-6, 76974-6 #### [facility] ([id number]) [address] [place] [address] 94699 TROPONIN I, HIGH SENSITIVITY 8 ng/L Normal <16 [facility] Comment on above: Performed By: #### Neymar PATEL, 70333-1, BMP, 64684-4, 13246-8 #### [facility] ([id number]) [address] [place] [address] 42585 Consultation/Specialist Note on 03-31-2024 Consultation/Specialist Note [id number] 28#1.00OTGTIFF [facility] Coding Summaryon 03-30-2024 [facility] QppihirnXJq9wVx+PGhl YWQ+HA0OIELpW61ghKUg xL1oP4HAYZqNEjxnPVXN GPvUJpFbxnMgRT9leNBl ZXJu IC8+EI0aZIZxZessqDZd v1H9iOH6B15cvb1hDBen mJP9ENYkKtSxxrxim9lc xYy0EKkjMhilHrLz CVYuxW20RMZ5lH71Ll84 yOKeyRTpk4xpjNh7YkPn LWEaZBH4pOooUBrek0Eq NWSjZ63ebUObe1F6 IGNvbGxhcHNlOyBlbXB0 nT4wAZhpsanwm8lfoqyk Rxv0cc25bUAgc0P9jOA1 E8FrutB7JLIvvRYk MdalkWIQwO3zlttlf1jt saxbDdAeLNSwAQe4MJf2 LAZhnOtdEyEoOJ25GVV8 ZUBoqlUaA2XcILGm vBabDyS1y9P7Cd8WY0BD RssnQ0ZKVVONTHblgFI+ KJ68mh39F1DxNqwqLsj9 KLWxLNY1xFU2nF9e KAIrQDsjb4G8bBM1Y1Qo iuSfeq5yq6joOUZlMEsy B77ygYVcm8U1KJJmhXJ0 DVFagEysUlHpnS52 Oyc+XYFkwRdci9AzVegu k5hht9tddRm2HauyZHPs qyQyuMeoOLS8m0GrJm0v HRTcxXN2xJP6gH3a YnJlAgN2MBaqY839VyPk gPJrPorlG28pI2PzmTK+ FSDyDvr0LYJktKrjMD7o C6AeFCVedttitLGm uLafGR7wTZXnqdexIMTb nT8lWWSzW0q4QpHzZlZ2 MElhO0OpOPHlumpfYa82 pV5bFyRyDgZ4YPwz T4CirnF5UTVslMMdBUdg KWR8H53yd0G4TJPxPSRs LVA9yHW3eN8rtDopfnlz bGVmdDsgdmVydGlj ICjeMGosV388FKXafMzl PkNvZGluZyBEYXRlOiAg MDYvMDUvMjAyNDwvdGQ+ ISVnOUG8tUhpSRGk oKTpPNqhVs3icNytcGdg BG1xIHXixqbpVKPuwL9v EYZohKQgvLfkIX3tPFLi mkcwr799YwWnNYN9 PTKyiMMnJ4SlnI5bBdTs QIElYSIkL7EzoEAiVIqb I081NKvyEbL0SDQeoyFd I6ImXMYzcNxeEpM7 j9K9Ti5Rw0PukzrfX3Ra kAUpAgJiPtmtWEe2U8Uv PjwvdHI+GA82ROInLP34 TLz0AGI1vUkzGBvr WJJiU6ShfE9sLyYlGTNq ZGRkOyc+PHRhYmxlIHdp ZHRoPScxMDAlJyBzdHls VH0nTu7xFJRzILFz bKwrgLTcBkFtq2cnSVCv IFmyGC9cbTxgH2PnxVC8 RJRzq9w1Ih74F31sW4Fj dXA+PFIpwUK1iQA1 jN9yLrHpUwT7PDhyJ011 AeRgbINuWljkg5mwx2of hLl8ApE3JDAwalPxvBtc XNV8y9KvFg99C67g IHdpZHRoPSIxNSUiIHZh bIiqrp8suV7oOh5+PGNv dFO4ySW4iP9eNiWkFbY6 YOojX330SuFxkKRr Lyorv9vys9pguFv6SbMg CMStgoGufDftOFS4w1Xa Zk38I0TyuSpga7ToVtv9 ms56mDRxp8J1lXV1 D1TnDJSufvcfyGXdyXmj UD5kESPjwvquMPOqaU9t ZTVhJ9g9AzGzWkG6ZJny D9HqyvN2HEMneUDs ZRSxqUDCqC7xtisev4of iyppRpRiNOXlTTe2ZJm8 GZSxzSjnBqPmMCN0ZeP6 IFX1bRPbtR1reDvg luichH2sZzm+RTQ6sADs nPYIOM3pHpzllQX+PHRk WKK3vHvnVTqmUNGgqK8i HYSdP7h4IcPvUdI9 IVvuS7QngeC7XSDyrZMm QZIikGTQkE3ariiqb7oi utcoVyYbGMEcPXv1QKv5 LWFsaWduOiBsZWZ0 BdT0OUR4oAErnL3ssJgf lnywrY4xMev+QmlydGgg DVG0XDf8I9NvQjp7DWIl fVwtUO1vcKQqRWgi Df8goZshbGbdZZ6kNHBt inkyq588NoFei2qfDHCv hTGeRFnyKQJ1U72qn4V8 PGPkHYYkXWV4dLB4 mQ4akHnxlwshtNSvrJcf heGuiIejVGseUWhwC554 OOEtlNywMcXzLZb3V5Qc Vwm1JAUokCtpUY2e mUIlZVtuAc5arYcmpRic HY5zHRCubfcfx015YpJy d1uaYDQkgKQeMPgtNBY3 N91yr0G3FDOiUCXk LAH7uIX9gQ9feNnfmdaz bGVmdDsgdmVydGljYWwt IBcnQ266VLDgkWbsAwFq iCy8D0UqAuz1EQHt dLwcRF7nqZRqSUzlTs1r vSzmhDjqJK2tPUUeyusp f519HnOhq2qiCXQggCIb VLwcRFP7D10me7T1 YYYsUODtQEN3eYN5sW1z bGlnbjogbGVmdDsgdmVy sQsvLPwmYSlsG245VHCi cDsnPlBhdGllbnQg YFgrBUa5P1NhFuyokSQ+ CT82OUIkCW59qKEvfMYa m4yfvCv8YqLnTWXcODR2 iOeoEKkmg6VrNYOk K45upVCbq8S0LZBzqYsz fVBrUiPcyKV8vU1rYRph joslc5ruyahbCdfjo4wm nh00xS50F21rJUyi ZHRoPSIzMCUiIHZhbGln yp6swL4nKc5+PGNvbCB3 hNX3wS2gUZNbDkJ0VNsg Q284TbGcsMSaDdge l0now7jioQh4YlU7RUHc zxNdgCpjPOA1f5XxKz56 K90dIXxyBUPhOHSdWLTe HTRekXqrma3fjC5u Ii8+RFBuuUM3aTH3uJ7q LuJpWpV5PPkeQ185QeAg aOKoZwyzB21wS4JikPV+ JLDrGkr0PHUauMhz JK8kaIIwGEsdUp5aFSW1 QlErTfGxKQslP2AxWPXb pwsxakcybUB6AKDmNOSp dI37St4rwBhbKIYo iGGIfO2ydhsjy9gnlpik DtYxQTBrKWe3WAc5GCXv sJvmEdMeRLS3BfW1WXD3 oEKwiX8suYrgezsc eF8pH3VpQBRjidybYm87 nB0qDeBvWjA1JUeqCls+ AY3PXZTPTQNPUyVHFZSj UzwvdGQ+PHRkIHN0 pSwoGQspZBGjlC3aLTFe Y3s9RyFqQnE4EIfzT4Bt TBWsvsegSp86vX4hGwPt MzS5WNsbL2DcxpF6 SVLknTLnVFflDNP1O40p g6T5AKBnUPWfHQH8gGX4 rG9dwYegftepnJHqxYka dmVydGljYWwtYWxp W257ZIVziZrcOnKnVaCs RzR7EGP1E8EfLda1DDCd bOziQB1vmZHgICoaCp8f oYnajSonMD4rGTIj ovepFNVouF6eGVAwsDGx aNofXM8zEPSowspfq089 LePpLRL1PGCxdPVrU3Km bF8eOfRwQFJlKABr J8ErrQEtUPkiN522UZic KwP8DKMhpoWvY6BpCZIa lVraZhF6x0O9Kv29BRBG ZWFyczwvdGQ+PHRk CJM3nRozBAwaJHTedR6d YRUpG4c1IeJjIbV9NVte G1PzULXwziraOy65pU6o LdKfGxJ3IYnfG2Sf kuF9KHNapTDfHXwdHRO4 B47zd9D6ZEAgSVDkTGO1 bPE7cJ5lyNtxvxqjeQEt dDsgdmVydGljYWwt KDgqG128CXPdzPmxPjEP TUFMRTwvdGQ+PHRkIHN0 lHcyMYclKFOpoV9fMMSz I6i2VpGuBnA9JCwr L8GdOFFvlekfXq66yV5c HgSiJsJ4QZokG6TqnbB1 CAHsbFHbADlrHZK4Z60z u5V7CEPiDOAbKLF1 eKT3nH1fqKimfentyOPd dDsgdmVydGljYWwtYWxp M908WIYevOimDb2KLQ32 CY22U9ZsMrfejCBm bGU+PHRhYmxlIHdpZHRo PPqvYZDpHrUkxBokRG9l Am3cXTEnNBWmzIosxJGv QjZsr1mkGSPoJMxh GV7leQvgZ7OspSU6CAIy i1s0Ri47X49dQ0YiaIA+ RHPtcOI3sIE1aC6kMsKv XhJ0XAbaV739IkPx sQTbSptzl5qhk5pziWf6 IjMwJSIgdmFsaWduPSJ0 k6TcOd91Z00vYBqlGXSh PSIyMCUiIHZhbGln ge2agO9fSk2+PGNvbCB3 oAN0xT6sCjJrClQ3KOsr M590XzGmtCOnFsjaB09s W1BpeQY+PHRyPjx0 QXDoiZkiFL0alURdPBiw Qw2eWXJ7RsHwNnDeYMbo O3ScEZRacqwldabgcBT4 TYYhSVPjqE96Yi0a pSveVv4oCTDqEPH0CXBv hASuR3HggU8mIeDhQNMa GNOkH3BefOToQRhvN206 RJkpYcH3UXLaypBx A3VfZDNfiAblDgV9x9I5 Xi3WuZlhuTMzCG0dOfKp ZGo7G9SbKie7KFLlhMrp GU5clQCrRRjcRs5q dTdrdTjsKP1vBDFwnadg k547VwBrv8olNGKcpARg UCcfJHL7G86vh3C1KHTl DCOrPQH6lNP6uA3y bGlnbjogbGVmdDsgdmVy gGrxCDarXDfiO174BOKl vDbuQtBPEnz8A9UpVis6 EWYlnGfaUS9ilETa CUowEq9uhVwdqPuqJT6p NYRffnwxu220IyZrr9ym PFUraWQaYEobJGZ6S32i n2J5LFYqMENvEBK1 aDG7kQ9fjKdbqrozzXAw dDsgdmVydGljYWwtYWxp B682ODVxaGgfLl2XGed4 I5LlOmi2CDWuiBmc MR7joVJsMEaeKe9vvDnb zHbuPA8tJPKvhuime433 YiDjd6rjVZMjySPgVGfv ACT1U00zh7I6HMXz ZKJkUSJ5cUP6tX4jvQhe bjogbGVmdDsgdmVydGlj NUzmMBuyU569ZRAmwPmf PlBheWVyOjwvdGQ+ OT47xs62X7OwNcrvWze1 NSZcJQF3aPZ8vX5bLGDc DWieh9W8yBN0D7ZkgbMq pg5xn4mxOGTbHPft Y29 (more content not included)... Normal [facility] Reminder Messageson 03-23-20 24 Reminder Messages - From: MIGUEL BROCK DO To: [facility] [place] [place] Sent: 03/22/2024 16:38:55 EDT ! Show up: [...] Signed on: 03/24/2024 14:53 EDT] Erlinda Odom [facility] Reminder Messages - From: MIGUEL BROCK DO To: [facility] [place] [place] Sent: 03/22/2024 16:36:57 EDT ! Show up: 03/22/2024 16:36:57 EDT Subject: Results Follow Up Actions: Call the patient with result(s) Due Date/Time: 03/23/2024 16:36:00 EDT Reminder Comments: looks good birads 2 recheck 1 year Results: Date Result Type Result Name 03/22/2024 16:30 Radiology US Breast Left Complete. lvm with results and recommendations [facility] Reminder Messages - From: MIGUEL BROCK DO To: [facility] Clinical [place] [place] Sent: 03/22/2024 16:38:13 EDT ! Show up: 03/22/2024 16:38:13 EDT Subject: Results Follow Up Actions: Call the patient with result(s) Due Date/Time: 03/23/2024 16:37:00 EDT Reminder Comments: looks good birads 2 repeat in 1 year Results: Date Result Type Result Name 03/22/2024 16:25 Radiology [place] Mammo Diagnostic 3D Bilateral. LVM with results and recommendations [facility] Mammo Diagnostic 3D Bilat eral.on 03-22-2024 [place] Mammo Diagnostic 3D Bilateral. MAMMOGRAM DIAGNOSTIC 3-D [...] Mildly scattered benign-appearing calcifications bilaterally. R2 image Rotary Planer Set Up Operator was utilized for this study. IMPRESSION: No [...] 2-Benign finding Recommendation: Normal interval follow-up Normal [facility] US Breast Left Complete.on 0 03-22-2024 [...] MD 03/22/24 4:28 pm Technologist: SMITHA DIEGO [facility] Outside Recordson 03-14-2024 Outside Records [id number] #[facility] Result[facility] Lab - Other Lab Results [id number] [facility]00[facility](CONCENTRATED)on 03-01-2024 Mycobacterium sp identified Org specific cx Nom (Unsp spec) SPECIMEN NOTES SPECIMEN 1 AFB SMEAR NO ACID FAST BACILLI (CONCENTRATED SMEAR) CULTURE RESULTS NO ACID FAST BACILLI ISOLATED IN 8 WEEKS Normal [facility] Comment on above: Performed By: #### 5 43-9 ####[facility] ([id number])[address], [place] [address] AND DIFFon 2023 BODY FLUID COMMENT Interpreta tion-------- Normal [facility] Comment on above: Result Comment: Refe rence values for this fluid type are undefined, as fluid accumulation is considered abnormal. Assorted lining cells present. Performed By: #### B FCT #### [facility] ([id number]) [address], [address] [place] [address] FLUID CLARITY CLEAR Normal [facility] Comment on above: Performed By: #### B FCT #### [facility] ([id number]) [address], [address] [place] [address] FLUID COLOR COLORLESS Normal [facility] Comment on above: Performed By: #### B FCT #### [facility] ([id number]) [address], [address] [place] [address] FLUID LYMPHOCYTE 15 % Normal [facility] Comment on above: Performed By: #### B FCT #### [facility] ([id number]) [address], [address] [place] [address] FLUID NEUTROPHILS 50 % Normal [facility] Comment on above: Performed By: #### B FCT #### [facility] ([id number]) [address], [address] [place] [address] 42 /uL Normal [facility] Comment on above: Performed By: #### B FCT #### [facility] ([id number]) [address], [address] [place] [address] FLUID SPECIMEN TYPE BRONCHOALVEOLAR LAVAGE Normal [facility] Comment on above: Result Comment: RIGH T LUNG, MIDDLE LOBE Performed By: #### B FCT #### [facility] ([id number]) [address], [address] [place] [address] MACROPHAGES 35 % Normal [facility] Comment on above: Performed By: #### B FCT #### [facility] ([id number]) [address], [address] [place] [address] 38 /uL Normal [facility] Comment on above: Performed By: #### B FCT #### [facility] ([id number]) [address], [address] [place] [address] Cytologyon 03-01-2024 Cytology Normal [facility] Comment on above: Result Comment: [facility] [address] [place] [address] Cytology Consultation Patient Name:JAZZMINE PATEL:1950 (Age: 73)Gender:FTaken:03/01/2024eported:03/03/2024 10:42Physician(s):EILEEN FONSECA DO ([phone])Copy To: Rec. #:[id number]: #[id number] Final Cytologic Diagnosis 1. 4L fine needle aspirate: No malignant epithelial cells identified. Adequate lymphoid sample 2. Right middle lobe bronchoalveolar lavage: No malignant cells identified. k/03/03/2024 Interpretation performed at [facility], [address] [place] [address], License number: [id number].Electronically Signed Out By Sangeeta German MD Clinical History Adenocarcinoma of lingula. lung cancer, need for staging Rapid On Site Interpretation 1. 4L fine needle aspirate: Passes 1-3: Negative, adequate lymphoid cells Dr. Cortes Interpretation provided at [facility], [address] [place] [address]. Gross Description 1.Prepared in Endoscopy were 6 [...] 4L fine needle aspirate Cell block for Non-weight control engineer (M), Level 2 H&E, Slides Made x 6 2: Right middle lobe bronchoalveolar lavage Cell block for Non-weight control engineer (M), Level 2 H&E, Non MOLDER CLOSED MOLDS ThinPrep Fee Code(s): 1; 38627, 69235, 71135 2; 93184, 28805 FUNGAL CULTUREon 03-01-2024 Fungus identified Cx Nom (Unsp spec) SPECIMEN NOTES SPECIMEN 1 FUNGAL SMEAR NO FUNGAL ELEMENTS SEEN ON CONCENTRATED SMEAR CULTURE RESULTS NO FUNGUS ISOLATED AFTER 4 WEEKS Normal [facility] Comment on above: Performed By: #### 5 80-1 ####[facility] ([id number])0 [facility], [address] [place] [address] Glucose Glucometer (BldC) [M ass/Vol]on 03-01-2024 Glucose [Mass/Vol] 124 mg/dL High 65-99 [facility] LOWER RESPIRATORY CULTUREon 03-01-2024 Bacteria identified [...] endocarditis). PENICILLIN(IV,nonmen ing.) S 1 F Susceptible [facility] Comment on above: Performed By: #### 6 24-7 ####[facility] ([id number])[address] [place] [address], [address] [place] [address] BASIC METABOLIC PANLon 02-25 Anion gap [Moles/Vol] 10 mmol/L Normal 5-15 [facility] Comment on above: Performed By: #### C BCA, 91488-6, BMP, 41453-9, 04017-6 #### [facility] ([id number]) [address] [place] [address], [place] [address] Calcium [Mass/Vol] 8.5 mg/dL Normal 8.5-10.5 [facility] Comment on above: Performed By: #### C BCA, 27290-1, BMP, 75910-9, 49514-7 #### [facility] ([id number]) [address] [place] [address] Chloride [Moles/Vol] 99 mmol/L Normal 98-109 [facility] Comment on above: Performed By: #### C BCA, 60562-3, BMP, 57824-8, 43071-1 #### [facility] ([id number]) [address] [place] [address] 98327 CO2 [Moles/Vol] 32 mmol/L Normal 22-32 [facility] Comment on above: Performed By: #### C BCA, 05630-0, BMP, 96289-7, 32393-9 #### [facility] ([id number]) [address] [place] [address] 58460 Creatinine [Mass/Vol] 0.90 mg/dL Normal 0.40-1.00 [facility] Comment on above: Result Comment: METH OD TRACEABLE TO IDMS STANDARD Performed By: #### C BCA, 23183-8, BMP, 98249-5, 29037-8 #### [facility] ([id number]) [address] [place] [address] 97274 GFR/1.73 sq M.predicted among non-blacks MDRD (S/P/Bld) [Vol rate/Area] 68 mL/min/{1.73_m2} Normal >59 [facility] Comment on above: Result Comment: Reported eGFR is based on the CKD-EPI 1 equation that does not use a race coefficient. Performed By: #### C BCA, 79665-5, BMP, 09297-8, 65313-5 #### [facility] ([id number]) [address] [place] [address] 10697 Glucose [Mass/Vol] 92 mg/dL Normal 65-99 [facility] Comment on above: Performed By: #### C BCA, 67359-7, BMP, 58729-4, 73588-2 #### [facility] ([id number]) [address] [place] [address] 32051 Potassium [Moles/Vol] 4.0 mmol/L Normal 3.5-5.0 [facility] Comment on above: Performed By: #### C JORGE, 82866-1, BMP, 72938-4, 70162-9 #### [facility] ([id number]) [address] [place] [address] 05970 Sodium [Moles/Vol] 141 mmol/L Normal 134-146 [facility] Comment on above: Performed By: #### C JORGE, 13829-3, BMP, 59322-6, 67392-1 #### [facility] ([id number]) [address] [place] [address] 23419 Urea nitrogen [Mass/Vol] 21 mg/dL Normal 5-27 [facility] Comment on above: Performed By: #### Neymar PATEL, 58509-9, BMP, 62336-4, 47670-1 #### [facility] ([id number]) [address] [place] [address] 66250 CBC AND AUTO DIFFon 02-26-20 24 ABSOLUTE BASOPHIL 0.1 X10E9/L Normal 0.0-0.2 [facility] Comment on above: Performed By: #### C JORGE, 54087-2, BMP, 66615-7, 57940-7 #### [facility] ([id number]) [address] [place] [address] 50883 ABSOLUTE NEUTROPHIL 3.8 X10E9/L Normal 1.5-6.6 [facility] Comment on above: Performed By: #### Neymar PATEL, 23938-9, BMP, 76646-9, 27286-6 #### [facility] ([id number]) [address] [place] [address] 93845 Basophils/100 WBC (Bld) 1.2 % Normal [facility] Comment on above: Performed By: #### C JORGE, 27948-1, BMP, 49469-6, 07147-0 #### [facility] ([id number]) [address] [place] [address] 79817 Eosinophils (Bld) [#/Vol] 0.2 10*3/uL Normal 0.0-0.4 [facility] Comment on above: Performed By: #### Neymar PATEL, 46659-6, BMP, 52736-5, 66261-2 #### [facility] ([id number]) [address] [place] [address] 46566 Eosinophils/100 WBC (Bld) 2.9 % Normal [facility] Comment on above: Performed By: #### Neymar PATEL, 66895-3, BMP, 05688-5, 13247-3 #### [facility] ([id number]) [address] [place] [address] 86954 Erythrocyte distribution width (RBC) [Ratio] 14.3 % Normal 11.5-15.0 [facility] Comment on above: Performed By: #### Neymar PATEL, 79502-4, BMP, 77469-2, 12151-9 #### [facility] ([id number]) [address] [place] [address] 14380 Hematocrit (Bld) [Volume fraction] 42.1 % Normal 35-47 [facility] Comment on above: Performed By: #### Neymar PATEL, 73008-0, BMP, 40971-2, 73666-1 #### [facility] ([id number]) [address] [place] [address] 40917 Hemoglobin (Bld) [Mass/Vol] 14.4 g/dL Normal 11.7-15.5 [facility] Comment on above: Performed By: #### Neymar PATEL, 93817-1, BMP, 58400-8, 60884-3 #### [facility] ([id number]) [address] [place] [address] 54764 Lymphocytes (Bld) [#/Vol] 2.3 10*3/uL Normal 1.0-3.5 [facility] Comment on above: Performed By: #### C BCA, 67061-4, BMP, 18053-1, 57512-7 #### [facility] ([id number]) [address] [place] [address] 05361 Lymphocytes/100 WBC (Bld) 33.4 % Normal [facility] Comment on above: Performed By: #### Neymar BCA, 98959-1, BMP, 75781-0, 24610-4 #### [facility] ([id number]) [address] [place] [address] 93982 MCH (RBC) [Entitic mass] 30.3 pg Normal 27-34 [facility] Comment on above: Performed By: #### Neymar PATEL, 92482-3, BMP, 30676-8, 66106-2 #### [facility] ([id number]) [address] [place] [address] 26851 MCHC (RBC) [Mass/Vol] 34.1 g/dL Normal 32-36 [facility] Comment on above: Performed By: #### Neymar PATEL, 08902-2, BMP, 64711-7, 16959-5 #### [facility] ([id number]) [address] [place] [address] 89044 MCV (RBC) [Entitic vol] 89 fL Normal 80-100 [facility] Comment on above: Performed By: #### Neymar BCA, 39878-0, BMP, 91038-2, 49803-7 #### [facility] ([id number]) [address] [place] [address] 85095 Monocytes (Bld) [#/Vol] 0.5 10*3/uL Normal 0-0.9 [facility] Comment on above: Performed By: #### Neymar PATEL, 90412-6, BMP, 31446-6, 27266-4 #### [facility] ([id number]) [address] [place] [address] 64091 Monocytes/100 WBC (Bld) 7.1 % Normal [facility] Comment on above: Performed By: #### Neymar BCA, 60403-6, BMP, 32532-9, 38618-7 #### [facility] ([id number]) [address] [place] [address] 04586 Neutrophils/100 WBC (Bld) 55.4 % Normal [facility] Comment on above: Performed By: #### Neymar BCA, 30845-7, BMP, 73433-8, 98091-6 #### [facility] ([id number]) [address] [place] [address] 29539 Platelet mean volume (Bld) [Entitic vol] 9.1 fL Normal 7-12 [facility] Comment on above: Performed By: #### Neymar PATEL, 46373-8, BMP, 88798-9, 71573-3 #### [facility] ([id number]) [address] [place] [address] 24963 Platelets (Bld) [#/Vol] 252 10*3/uL Normal 150-450 [facility] Comment on above: Performed By: #### Neymar PATEL, 31225-8, BMP, 10452-9, 06089-4 #### [facility] ([id number]) [address] [place] [address] 60106 RBC COUNT 4.73 X10E12/L Normal 3.80-5.20 [facility] Comment on above: Performed By: #### Neymar BCA, 01173-5, BMP, 10178-9, 60336-2 #### [facility] ([id number]) [address] [place] [address] 20310 WBC (Bld) [#/Vol] 6.9 10*3/uL Normal 4.0-11.0 [facility] Comment on above: Performed By: #### C JORGE, 66047-7, BMP, 28525-3, 08911-1 #### [facility] ([id number]) [address] [place] [address] 66759 HGB A1C (GLYCO-HGB)on 2023 Glucose [Mass/Vol] 140 mg/dL Normal [facility] Comment on above: Performed By: #### C JORGE, 30914-7, BMP, 29376-4, 31072-4 #### [facility] ([id number]) [address] [place] [address] 99569 HbA1c (Bld) [Mass fraction] 6.5 % High 4.4-5.6 [facility] Comment on above: Result Comment: NOTE ADA Guidelines Result HgbA1c Normal : less than 5.7 % Prediabetes : 5.7 % to 6.4 % Diabetes : > 6.4 % Use with caution in patients with abnormal hemoglobin variants as the half-life of red blood cells and in vivo glycation rates are affected. Performed By: #### C JORGE, 43562-7, DMITRY, 28494-4, 65590-2 #### [facility] ([id number]) [address] [place] [address] 99745 PROTIME AND INRon 02-26-2024 INR Coag (PPP) [Relative time] 1.0 {INR} Normal 0.8-1.1 [facility] Comment on above: Performed By: #### Neymar PATEL, 52047-7, BMP, 72594-4, 97548-4 #### [facility] ([id number]) [address] [place] [address] 90199 PT Coag (PPP) [Time] 11.2 s Normal 9.8-13.2 [facility] Comment on above: Result Comment: NEW REFERENCE RANGE Performed By: #### Neymar PATEL, 44337-5, BMP, 30084-7, 16842-9 #### [facility] ([id number]) [address] [place] [address] 66453 aPTT Coag (PPP) [Time]on aPTT Coag (Bld) [Time] 36 s Normal 26-37 [facility] Comment on above: Result Comment: NEW REFERENCE RANGE Performed By: #### C BCA, 00913-5, BMP, 28523-4, 17161-1 #### [facility] ([id number]) [address] [place] [address] 30539 BASIC METABOLIC PANLon 02-22 Anion gap [Moles/Vol] 12 mmol/L Normal 5-15 [facility] Comment on above: Performed By: #### C BCA, 24854-3, BMP, 87187-3, 17326-9 #### [facility] ([id number]) [address] [place] [address] 09879 Calcium [Mass/Vol] 8.0 mg/dL Low 8.5-10.5 [facility] Comment on above: Performed By: #### C BCA, 77523-4, BMP, 44116-1, 77814-1 #### [facility] ([id number]) [address] [place] [address] 06827 Chloride [Moles/Vol] 100 mmol/L Normal 98-109 [facility] Comment on above: Performed By: #### C BCA, 23927-9, BMP, 15438-8, 88441-9 #### [facility] ([id number]) [address] [place] [address] 78753 CO2 [Moles/Vol] 29 mmol/L Normal 22-32 [facility] Comment on above: Performed By: #### C BCA, 95797-0, BMP, 02259-0, 89907-3 #### [facility] ([id number]) [address] [place] [address] 50123 Creatinine [Mass/Vol] 0.88 mg/dL Normal 0.40-1.00 [facility] Comment on above: Result Comment: METH OD TRACEABLE TO IDMS STANDARD Performed By: #### C BCA, 43779-2, BMP, 69986-3, 16389-9 #### [facility] ([id number]) [address] [place] [address] 69531 GFR/1.73 sq M.predicted among non-blacks MDRD (S/P/Bld) [Vol rate/Area] 70 mL/min/{1.73_m2} Normal >59 [facility] Comment on above: Result Comment: Reported eGFR is based on the CKD-EPI 2020 equation that does not use a race coefficient. Performed By: #### C BCA, 91721-6, BMP, 82649-9, 74178-4 #### [facility] ([id number]) [address] [place] [address] 84766 Glucose [Mass/Vol] 129 mg/dL High 65-99 [facility] Comment on above: Performed By: #### C BCA, 61586-1, BMP, 37556-8, 04516-9 #### [facility] ([id number]) [address] [place] [address] 46394 Potassium [Moles/Vol] 4.1 mmol/L Normal 3.5-5.0 [facility] Comment on above: Performed By: #### C BCA, 75195-7, BMP, 80996-7, 23371-6 #### [facility] ([id number]) [address] [place] [address] 24647 Sodium [Moles/Vol] 141 mmol/L Normal 134-146 [facility] Comment on above: Performed By: #### C BCA, 82981-7, BMP, 42739-2, 34829-7 #### [facility] ([id number]) [address] [place] [address] 53352 Urea nitrogen [Mass/Vol] 16 mg/dL Normal 5-27 [facility] Comment on above: Performed By: ###Lily Blackmon BCA, 81502-3, DMITRY, 43106-8, 86162-7 #### [facility] ([id number]) [address] [place] [address] 06913 Consultation/Specialist Note on 02-23-2024 Consultation/Specialist Note [id number] #1.00OTGTIFF [facility] Lipid 1996 panelon Cholesterol [Mass/Vol] 124 mg/dL Low 150-200 [facility] Comment on above: Performed By: ###Lily Blackmon BCA, 89882-4, DMITRY, 49379-7, 23706-9 #### [facility] ([id number]) [address] [place] [address] 42006 Cholesterol in HDL [Mass/Vol] 54 mg/dL Normal >39 [facility] Comment on above: Result Comment: HDL <40 mg/dL - High Risk HDL > or = 40mg/dL- Desirable HDL >60 mg/dL - Negative Risk Performed By: ###Lily Blackmon BCA, 60789-7, DMITRY, 36964-8, 95318-2 #### [facility] ([id number]) [address] [place] [address] 20861 Cholesterol in LDL [Mass/Vol] 50 mg/dL Normal <130 [facility] Comment on above: Result Comment: LDL <100 mg/dL - Desirable LDL >160 mg/dL - High Risk Performed By: #### Neymar PATEL, 28235-2, BMP, 19780-5, 75623-1 #### [facility] ([id number]) [address] [place] [address] 15680 Cholesterol in VLDL [Mass/Vol] 20 mg/dL Normal 0-30 [facility] Comment on above: Performed By: #### C BCA, 96851-6, BMP, 78327-7, 96940-9 #### [facility] ([id number]) [address] [place] [address] 59770 CHOLESTEROL:HDL 2.3 Normal 1.0-5.0 [facility] Comment on above: Performed By: #### C BCA, 35373-6, BMP, 02506-4, 11158-7 #### [facility] ([id number]) [address] [place] [address] 41993 Triglyceride [Mass/Vol] 98 mg/dL Normal 27-150 [facility] Comment on above: Performed By: #### C BCA, 39762-1, BMP, 66891-1, 16082-0 #### [facility] ([id number]) [address] [place] [address] 28921 MR BRAIN W WO CONTon 024 MR [...] You MD on 02/23/2024 12:27 PM Normal [facility] THYROID PROFILEon 02-23-2024 Free T4 [Mass/Vol] 0.67 ng/dL Normal 0.61-1.60 [facility] Comment on above: Performed By: #### C BCA, 28793-7, BMP, 88226-5, 58277-2 #### [facility] ([id number]) [address] [place] [address] TSH 0.50 uIU/mL Normal 0.49-4.67 [facility] Comment on above: Performed By: #### C BCA, 65165-6, BMP, 59295-2, 66681-7 #### [facility] ([id number]) [address] [place] [address] Lab - Other Lab Resultson Lab - Other Lab Results [id number] 8#[facility] Rad - Other Radiology Report on 02-16-2024 Rad - Other Radiology Report [id number] 0#1.00OTGTIFF [facility] PET CT SKULL TO THIGHon [...] Kumar MD on 02/15/2024 9:25 AM Normal [facility] Lab - Other Pathology Report on 02-04-2024 Lab - Other Pathology Report [id number] #1.00OTGTIFF [facility] Outside Recordson 02-04-2024 Outside Records [id number] #1.[facility] CBC AND AUTO DIFFon 02-01-20 24 ABSOLUTE BASOPHIL 0.1 X10E9/L Normal 0.0-0.2 [facility] Comment on above: Performed By: #### C BCA, 33447-2, BMP, 45880-6, 96591-5 #### [facility] ([id number]) [address] [place] [address] ABSOLUTE NEUTROPHIL 6.5 X10E9/L Normal 1.5-6.6 [facility] Comment on above: Performed By: #### C BCA, 44209-3, BMP, 27039-3, 81422-9 #### [facility] ([id number]) [address] [place] [address] 96100 Basophils/100 WBC (Bld) 0.7 % Normal [facility] Comment on above: Performed By: #### C JORGE, 45374-2, BMP, 25689-8, 73628-7 #### [facility] ([id number]) [address] [place] [address] 96890 Eosinophils (Bld) [#/Vol] 0.2 10*3/uL Normal 0.0-0.4 [facility] Comment on above: Performed By: #### Neymar PATEL, 95134-7, BMP, 21113-9, 05669-6 #### [facility] ([id number]) [address] [place] [address] 21147 Eosinophils/100 WBC (Bld) 1.9 % Normal [facility] Comment on above: Performed By: #### Neymar PATEL, 52223-0, BMP, 16010-1, 94846-8 #### [facility] ([id number]) [address] [place] [address] 78594 Erythrocyte distribution width (RBC) [Ratio] 14.1 % Normal 11.5-15.0 [facility] Comment on above: Performed By: #### Neymar PATEL, 93630-0, BMP, 15873-3, 10355-1 #### [facility] ([id number]) [address] [place] [address] 08669 Hematocrit (Bld) [Volume fraction] 38.7 % Normal 35-47 [facility] Comment on above: Performed By: #### Neymar PATEL, 22755-3, BMP, 58956-8, 20770-8 #### [facility] ([id number]) [address] [place] [address] 11785 Hemoglobin (Bld) [Mass/Vol] 13.0 g/dL Normal 11.7-15.5 [facility] Comment on above: Performed By: #### Neymar PATEL, 76275-9, BMP, 01416-8, 47027-1 #### [facility] ([id number]) [address] [place] [address] 03741 Lymphocytes (Bld) [#/Vol] 2.2 10*3/uL Normal 1.0-3.5 [facility] Comment on above: Performed By: #### Neymar PATEL, 48246-3, BMP, 84592-3, 13222-9 #### [facility] ([id number]) [address] [place] [address] 57586 Lymphocytes/100 WBC (Bld) 22.5 % Normal [facility] Comment on above: Performed By: #### Neymar PATEL, 73439-1, BMP, 63260-4, 04702-7 #### [facility] ([id number]) [address] [place] [address] 51352 MCH (RBC) [Entitic mass] 30.0 pg Normal 27-34 [facility] Comment on above: Performed By: #### Neymar PATEL, 85013-8, BMP, 80888-6, 38595-7 #### [facility] ([id number]) [address] [place] [address] 81948 MCHC (RBC) [Mass/Vol] 33.7 g/dL Normal 32-36 [facility] Comment on above: Performed By: #### Neymar PATEL, 71464-4, BMP, 09211-9, 91091-9 #### [facility] ([id number]) [address] [place] [address] 52064 MCV (RBC) [Entitic vol] 89 fL Normal 80-100 [facility] Comment on above: Performed By: #### Neymar PATEL, 42988-6, BMP, 02324-9, 41115-8 #### [facility] ([id number]) [address] [place] [address] 24387 Monocytes (Bld) [#/Vol] 0.7 10*3/uL Normal 0-0.9 [facility] Comment on above: Performed By: #### Neymar BCA, 24578-0, BMP, 58833-1, 83723-0 #### [facility] ([id number]) [address] [place] [address] 35138 Monocytes/100 WBC (Bld) 7.4 % Normal [facility] Comment on above: Performed By: #### Neymar BCA, 28443-8, BMP, 08127-6, 16558-2 #### [facility] ([id number]) [address] [place] [address] 79312 Neutrophils/100 WBC (Bld) 67.5 % Normal [facility] Comment on above: Performed By: #### Neymar PATEL, 09800-0, BMP, 33587-8, 86474-2 #### [facility] ([id number]) [address] [place] [address] 77711 Platelet mean volume (Bld) [Entitic vol] 8.4 fL Normal 7-12 [facility] Comment on above: Performed By: #### Neymar BCA, 56459-7, BMP, 47144-1, 18038-3 #### [facility] ([id number]) [address] [place] [address] 47107 Platelets (Bld) [#/Vol] 256 10*3/uL Normal 150-450 [facility] Comment on above: Performed By: #### Neymar BCA, 98526-0, BMP, 59693-1, 60228-4 #### [facility] ([id number]) [address] [place] [address] 90292 RBC COUNT 4.34 X10E12/L Normal 3.80-5.20 [facility] Comment on above: Performed By: #### Neymar BCA, 21662-4, BMP, 22777-9, 60902-3 #### [facility] ([id number]) [address] [place] [address] 80418 WBC (Bld) [#/Vol] 9.6 10*3/uL Normal 4.0-11.0 [facility] Comment on above: Performed By: #### C BCA, 79297-7, BMP, 16400-7, 24122-8 #### [facility] ([id number]) [address] [place] [address] 60387 COMPREHENSIVE METABOLIC PANE Kemal 02-01-2024 Albumin [Mass/Vol] 3.4 g/dL Normal 3.2-5.3 [facility] Comment on above: Performed By: #### C BCA, 73182-2, BMP, 41874-9, 91302-9 #### [facility] ([id number]) [address] [place] [address] 55484 ALP [Catalytic activity/Vol] 63 U/L Normal 39-130 [facility] Comment on above: Performed By: #### C BCA, 17897-8, BMP, 29412-3, 01682-5 #### [facility] ([id number]) [address] [place] [address] 41450 ALT [Catalytic activity/Vol] 31 U/L Normal 0-31 [facility] Comment on above: Performed By: #### C BCA, 41037-8, BMP, 32897-6, 38809-6 #### [facility] ([id number]) [address] [place] [address] 55778 Anion gap [Moles/Vol] 6 mmol/L Normal 5-15 [facility] Comment on above: Performed By: #### C BCA, 46909-1, BMP, 04640-6, 32533-4 #### [facility] ([id number]) [address] [place] [address] 35777 AST [Catalytic activity/Vol] 29 U/L Normal 0-41 [facility] Comment on above: Performed By: #### C BCA, 47274-8, BMP, 08521-5, 20513-1 #### [facility] ([id number]) [address] [place] [address] 84275 Bilirubin [Mass/Vol] 0.4 mg/dL Normal 0.3-1.2 [facility] Comment on above: Performed By: #### C BCA, 78706-7, BMP, 38693-7, 50262-8 #### [facility] ([id number]) [address] [place] [address] 89549 Calcium [Mass/Vol] 6.8 mg/dL Critically low 8.5-10.5 [facility] Comment on above: Performed By: #### C BCA, 28802-5, BMP, 13004-7, 56021-0 #### [facility] ([id number]) [address] [place] [address] 19713 Chloride [Moles/Vol] 103 mmol/L Normal 98-109 [facility] Comment on above: Performed By: #### C BCA, 75499-9, BMP, 19696-4, 57771-4 #### [facility] ([id number]) [address] [place] [address] 20190 CO2 [Moles/Vol] 27 mmol/L Normal 22-32 [facility] Comment on above: Performed By: #### C BCA, 89576-3, BMP, 26920-3, 14375-3 #### [facility] ([id number]) [address] [place] [address] 42014 Creatinine [Mass/Vol] 0.88 mg/dL Normal 0.40-1.00 [facility] Comment on above: Result Comment: METH OD TRACEABLE TO IDMS STANDARD Performed By: #### C BCA, 35289-9, BMP, 91215-6, 95638-9 #### [facility] ([id number]) [address] [place] [address] 10867 GFR/1.73 sq M.predicted among non-blacks MDRD (S/P/Bld) [Vol rate/Area] 70 mL/min/{1.73_m2} Normal >59 [facility] Comment on above: Result Comment: Reported eGFR is based on the CKD-EPI 2020 equation that does not use a race coefficient. Performed By: #### C BCA, 94575-3, BMP, 43438-3, 75678-9 #### [facility] ([id number]) [address] [place] [address] 06831 Glucose [Mass/Vol] 159 mg/dL High 65-99 [facility] Comment on above: Performed By: #### C BCA, 47237-7, BMP, 74461-0, 07128-9 #### [facility] ([id number]) [address] [place] [address] 55569 Potassium [Moles/Vol] 3.4 mmol/L Low 3.5-5.0 [facility] Comment on above: Performed By: #### C BCA, 83223-2, BMP, 63316-7, 49089-0 #### [facility] ([id number]) [address] [place] [address] 92563 Protein [Mass/Vol] 7.0 g/dL Normal 6.0-8.0 [facility] Comment on above: Performed By: #### C BCA, 56179-6, BMP, 42058-8, 16287-0 #### [facility] ([id number]) [address] [place] [address] 93906 Sodium [Moles/Vol] 136 mmol/L Normal 134-146 [facility] Comment on above: Performed By: #### C BCA, 32036-8, BMP, 32914-5, 84856-3 #### [facility] ([id number]) [address] [place] [address] 89236 Urea nitrogen [Mass/Vol] 15 mg/dL Normal 5-27 [facility] Comment on above: Performed By: #### C BCA, 51678-5, BMP, 19028-3, 66661-7 #### [facility] ([id number]) [address] [place] [address] 14539 MAGNESIUMon 02-01-2024 Magnesium [Mass/Vol] 1.9 mg/dL Normal 1.8-2.6 [facility] Comment on above: Performed By: #### C BCA, 71903-8, BMP, 54203-0, 68047-3 #### [facility] ([id number]) [address] [place] [address] 11472 TROPONIN Ion 02-01-2024 Troponin I.cardiac [Mass/Vol] 0.04 ng/mL Normal 0.00-0.04 [facility] Comment on above: Performed By: #### C JORGE, 15383-7, BMP, 63995-9, 53441-3 #### [facility] ([id number]) [address] [place] [address] 09850 XR CHEST 2 VWSon 02-01-2024 XR CHEST [...] segment of left upper lobe.] Finalized by Jugren Barnard MD on 02/01/2024 12:51 PM Normal [facility] Outside Recordson 01-27-2024 Outside Records [id number] #[id number] Normal [facility] AFB CULTURE(CONCENTRATED)on 01-26-2024 Mycobacterium sp identified Org specific cx Nom (Unsp spec) AFB SMEAR NO ACID FAST BACILLI (CONCENTRATED SMEAR) CULTURE RESULTS NO ACID FAST BACILLI ISOLATED IN 8 WEEKS Normal [facility] Comment on above: Performed By: #### 5 43-9 #### [facility] ([id number]) [address] [place] [address] AND DIFFon 2023 BODY FLUID COMMENT Interpreta tion-------- Normal [facility] Comment on above: Result Comment: Refe rence values for this fluid type are undefined, as fluid accumulation is considered abnormal. Performed By: #### B FCT #### [facility] ([id number]) [address] [place] [address] FLUID CLARITY HAZY Normal [facility] Comment on above: Performed By: #### B FCT #### [facility] ([id number]) [address], [address] [place] [address] FLUID COLOR COLORLESS Normal [facility] Comment on above: Performed By: #### B FCT #### [facility] ([id number]) [address] [place] [address] FLUID NEUTROPHILS 98 % Normal [facility] Comment on above: Performed By: #### B FCT #### [facility] ([id number]) [address] [place] [address] 42 /uL Normal [facility] Comment on above: Performed By: #### B FCT #### [facility] ([id number]) [address] [place] [address] FLUID SPECIMEN TYPE BRONCHOALVEOLAR LAVAGE Normal [facility] Comment on above: Performed By: #### B FCT #### [facility] ([id number]) [address] [place] [address], [address] [place] [address] MACROPHAGES 2 % Normal [facility] Comment on above: Performed By: #### B FCT #### [facility] ([id number]) [address] [place] [address], [address] [place] [address] 2180 /uL Normal [facility] Comment on above: Performed By: #### B FCT #### [facility] ([id number]) [address] [place] [address], [address] [place] [address] Cytologyon 01-26-2024 Cytology Normal [facility] Comment on above: Result Comment: [facility] [address] [place] [address] Cytology Consultation Patient Name:JAZZMINE PATEL:1950 (Age: 73)Gender:FTaken:01/26/2024eported:02/02/2024 15:31Physician(s):EILEEN FONSECA DO ([phone])Copy To: Rec. #:[id number]: #[id number] Final Cytologic Diagnosis Bronchoalveolar lavage, lingula: Atypical cells are present. cjb/02/02/2024 Interpretation performed at [facility], [address] [place] [address], License number: [id number].Electronically Signed Out By Breonna Molina MD Clinical History Langular obstruction and chronic cough. Gross Description Received was 20mL of cloudy colorless fluid unfixed labeled as Homler, BAL, lingula . CytoLyt added in lab. Specimen placed in formalin at 17:00 and had a total fixation time of 8 hours. Source of Specimen Bronchoalveolar lavage, lingula Cell block for Non-weight control engineer (M), Level 2 H&E, Non MOLDER CLOSED MOLDS ThinPrep Fee Code(s): 1; 18857, 02286 FUNGAL CULTUREon 01-26-2024 Fungus identified Cx Nom (Unsp spec) FUNGAL SMEAR NO FUNGAL ELEMENTS SEEN ON CONCENTRATED SMEAR CULTURE RESULTS NO FUNGUS ISOLATED AFTER 4 WEEKS Normal [facility] Comment on above: Performed By: #### 5 80-1 #### [facility] ([id number]) [address] [place] [address], [address] [place] [address] Glucose Glucometer (BldC) [M ass/Vol]on 01-26-2024 Glucose [Mass/Vol] 71 mg/dL Normal 65-99 [facility] Glucose [Mass/Vol] 73 mg/dL Normal 65-99 [facility] LOWER RESPIRATORY CULTUREon 01-26-2024 Bacteria identified [...] endocarditis). PENICILLIN(IV,nonmen ing.) S 1 F Susceptible [facility] Comment on above: Performed By: #### 6 24-7 #### [facility] ([id number]) [address] [place] [address], [address] [place] [address] Surgical Pathologyon 024 Surgical Pathology Normal [facility] Comment on above: Result Comment: [facility] [address] [place] [address] Surgical Pathology Consultation Patient Name:JAZZMINE PATEL:1950 (Age: 73)Gender:FTaken:01/26/2024eported:02/02/2024hysician(s):EILEEN FONSECA DO ([phone])Copy To: Rec. #:[id number]: #[id number] Final Pathologic Diagnosis Endobronchial lesion, lingula: AT [...] Out cjb/02/02/2024niesha Molina MD Interpretation performed at [facility], [address] [place] [address], License number: [id number]. Clinical History Lingular obstruction and chronic cough. Gross Description Received in formalin labeled AMANDA endobronchial lesion, lingula are multiple thurston bits of soft tissue, aggregating to 0.9 x 0.1 x 0.1 cm. Filtered and submitted in a single cassette. (1, ns, [id number], m5) MG [facility]/01/26/2024SSI Specimen(s) Received Endobronchial lesion, lingula Fee Codes(s): 1; 40998, 18577, 81780(3) BASIC METABOLIC PANLon 01-24 Anion gap [Moles/Vol] 12 mmol/L Normal 5-15 [facility] Comment on above: Performed By: #### C BCA, 02258-8, BMP, 58919-1, 29183-9 #### [facility] ([id number]) [address] [place] [address] Calcium [Mass/Vol] 7.4 mg/dL Low 8.5-10.5 [facility] Comment on above: Performed By: #### C BCA, 03292-6, BMP, 05679-4, 55839-2 #### [facility] ([id number]) [address] [place] [address] 37687 Chloride [Moles/Vol] 101 mmol/L Normal 98-109 [facility] Comment on above: Performed By: #### C BCA, 82979-0, BMP, 67268-6, 41129-0 #### [facility] ([id number]) [address] [place] [address] 61197 CO2 [Moles/Vol] 29 mmol/L Normal 22-32 [facility] Comment on above: Performed By: #### C BCA, 65618-6, BMP, 56433-9, 44444-5 #### [facility] ([id number]) [address] [place] [address] 55024 Creatinine [Mass/Vol] 0.82 mg/dL Normal 0.40-1.00 [facility] Comment on above: Result Comment: METH OD TRACEABLE TO IDMS STANDARD Performed By: #### C BCA, 81171-6, BMP, 14149-1, 56323-2 #### [facility] ([id number]) [address] [place] [address] 64195 GFR/1.73 sq M.predicted among non-blacks MDRD (S/P/Bld) [Vol rate/Area] 76 mL/min/{1.73_m2} Normal >59 [facility] Comment on above: Result Comment: Reported eGFR is based on the CKD-EPI 2020 equation that does not use a race coefficient. Performed By: #### C BCA, 72719-5, BMP, 20529-7, 78593-7 #### [facility] ([id number]) [address] [place] [address] 31494 Glucose [Mass/Vol] 112 mg/dL High 65-99 [facility] Comment on above: Performed By: #### Neymar PATEL, 83931-5, BMP, 08950-3, 82858-3 #### [facility] ([id number]) [address] [place] [address] 77520 Potassium [Moles/Vol] 3.6 mmol/L Normal 3.5-5.0 [facility] Comment on above: Performed By: #### C BCA, 91999-6, BMP, 99043-7, 12495-0 #### [facility] ([id number]) [address] [place] [address] 16805 Sodium [Moles/Vol] 142 mmol/L Normal 134-146 [facility] Comment on above: Performed By: #### Neymar PATEL, 88193-5, BMP, 62185-5, 28126-6 #### [facility] ([id number]) [address] [place] [address] 09026 Urea nitrogen [Mass/Vol] 16 mg/dL Normal 5-27 [facility] Comment on above: Performed By: #### Neymar PATEL, 54522-1, BMP, 52564-3, 23021-3 #### [facility] ([id number]) [address] [place] [address] 97362 CBC AND AUTO DIFFon 01-25-20 24 ABSOLUTE BASOPHIL 0.1 X10E9/L Normal 0.0-0.2 [facility] Comment on above: Performed By: #### Neymar PATEL, 13696-6, BMP, 95464-7, 51219-4 #### [facility] ([id number]) [address] [place] [address] 00025 ABSOLUTE NEUTROPHIL 4.3 X10E9/L Normal 1.5-6.6 [facility] Comment on above: Performed By: #### Neymar BCA, 45868-4, BMP, 64876-3, 90707-3 #### [facility] ([id number]) [address] [place] [address] 48740 Basophils/100 WBC (Bld) 1.4 % Normal [facility] Comment on above: Performed By: #### C BCA, 63734-1, BMP, 45036-5, 08673-0 #### [facility] ([id number]) [address] [place] [address] 78439 Eosinophils (Bld) [#/Vol] 0.1 10*3/uL Normal 0.0-0.4 [facility] Comment on above: Performed By: #### Neymar PATEL, 96445-4, BMP, 53170-1, 94053-9 #### [facility] ([id number]) [address] [place] [address] 26349 Eosinophils/100 WBC (Bld) 0.8 % Normal [facility] Comment on above: Performed By: #### Neymar PATEL, 77419-6, BMP, 13426-7, 86427-2 #### [facility] ([id number]) [address] [place] [address] 00825 Erythrocyte distribution width (RBC) [Ratio] 14.0 % Normal 11.5-15.0 [facility] Comment on above: Performed By: #### Neymar PATEL, 71195-8, BMP, 97886-7, 56616-1 #### [facility] ([id number]) [address] [place] [address] 03847 Hematocrit (Bld) [Volume fraction] 41.3 % Normal 35-47 [facility] Comment on above: Performed By: #### Neymar BCA, 45488-8, BMP, 75423-3, 02876-5 #### [facility] ([id number]) [address] [place] [address] 36195 Hemoglobin (Bld) [Mass/Vol] 14.2 g/dL Normal 11.7-15.5 [facility] Comment on above: Performed By: #### C BCA, 27151-6, BMP, 73824-4, 74033-8 #### [facility] ([id number]) [address] [place] [address] 85175 Lymphocytes (Bld) [#/Vol] 2.0 10*3/uL Normal 1.0-3.5 [facility] Comment on above: Performed By: #### Neymar BCA, 41378-3, BMP, 02756-4, 80743-8 #### [facility] ([id number]) [address] [place] [address] 82710 Lymphocytes/100 WBC (Bld) 29.5 % Normal [facility] Comment on above: Performed By: #### Neymar PATEL, 43247-3, BMP, 73855-0, 91015-6 #### [facility] ([id number]) [address] [place] [address] 34624 MCH (RBC) [Entitic mass] 30.8 pg Normal 27-34 [facility] Comment on above: Performed By: #### Neymar BCA, 04603-7, BMP, 29935-6, 18517-0 #### [facility] ([id number]) [address] [place] [address] 18316 MCHC (RBC) [Mass/Vol] 34.5 g/dL Normal 32-36 [facility] Comment on above: Performed By: #### Neymar BCA, 03050-9, BMP, 21010-8, 10743-4 #### [facility] ([id number]) [address] [place] [address] 98285 MCV (RBC) [Entitic vol] 89 fL Normal 80-100 [facility] Comment on above: Performed By: #### Neymar BCA, 37268-4, BMP, 50271-3, 45472-9 #### [facility] ([id number]) [address] [place] [address] 68420 Monocytes (Bld) [#/Vol] 0.4 10*3/uL Normal 0-0.9 [facility] Comment on above: Performed By: #### C BCA, 52543-1, BMP, 49667-3, 57759-7 #### [facility] ([id number]) [address] [place] [address] 08883 Monocytes/100 WBC (Bld) 5.6 % Normal [facility] Comment on above: Performed By: #### Neymar PATEL, 99163-8, BMP, 47901-2, 99420-7 #### [facility] ([id number]) [address] [place] [address] 49283 Neutrophils/100 WBC (Bld) 62.7 % Normal [facility] Comment on above: Performed By: #### Neymar PATEL, 59384-1, BMP, 23789-0, 71886-0 #### [facility] ([id number]) [address] [place] [address] 23488 Platelet mean volume (Bld) [Entitic vol] 8.8 fL Normal 7-12 [facility] Comment on above: Performed By: #### Neymar PATEL, 36640-4, BMP, 15828-8, 61763-6 #### [facility] ([id number]) [address] [place] [address] 88679 Platelets (Bld) [#/Vol] 230 10*3/uL Normal 150-450 [facility] Comment on above: Performed By: #### Neymar PATEL, 87461-1, BMP, 18394-8, 51587-0 #### [facility] ([id number]) [address] [place] [address] 97898 RBC COUNT 4.62 X10E12/L Normal 3.80-5.20 [facility] Comment on above: Performed By: #### C BCA, 46551-6, BMP, 19196-5, 68259-5 #### [facility] ([id number]) [address] [place] [address] 03262 WBC (Bld) [#/Vol] 6.9 10*3/uL Normal 4.0-11.0 [facility] Comment on above: Performed By: #### Neymar PATEL, 18471-7, BMP, 69149-4, 62682-4 #### [facility] ([id number]) [address] [place] [address] 28047 HGB A1C (GLYCO-HGB)on 2023 Glucose [Mass/Vol] 146 mg/dL Normal [facility] Comment on above: Performed By: #### Neymar PATEL, 88435-9, BMP, 32045-8, 71268-1 #### [facility] ([id number]) [address] [place] [address] 89217 HbA1c (Bld) [Mass fraction] 6.7 % High 4.4-5.6 [facility] Comment on above: Result Comment: NOTE ADA Guidelines Result HgbA1c Normal : less than 5.7 % Prediabetes : 5.7 % to 6.4 % Diabetes : > 6.4 % Use with caution in patients with abnormal hemoglobin variants as the half-life of red blood cells and in vivo glycation rates are affected. Performed By: #### C JORGE, 19788-6, BMP, 89299-3, 97701-0 #### [facility] ([id number]) [address] [place] [address] 95844 Lipid 1996 panelon 4 Cholesterol [Mass/Vol] 97 mg/dL Low 150-200 [facility] Comment on above: Performed By: #### Neymar PATEL, 97453-1, BMP, 31566-4, 72326-0 #### [facility] ([id number]) [address] [place] [address] 97499 Cholesterol in HDL [Mass/Vol] 44 mg/dL Normal >39 [facility] Comment on above: Result Comment: HDL <40 mg/dL - High Risk HDL > or = 40mg/dL- Desirable HDL >60 mg/dL - Negative Risk Performed By: #### Neymar PATEL, 65446-1, BMP, 99679-0, 48776-0 #### [facility] ([id number]) [address] [place] [address] 65393 Cholesterol in LDL [Mass/Vol] 41 mg/dL Normal <130 [facility] Comment on above: Result Comment: LDL <100 mg/dL - Desirable LDL >160 mg/dL - High Risk Performed By: ###Lily Blackmon BCA, 47613-7, BMP, 42045-0, 64048-2 #### [facility] ([id number]) [address] [place] [address] 27636 Cholesterol in VLDL [Mass/Vol] 12 mg/dL Normal 0-30 [facility] Comment on above: Performed By: ###Lily Blackmon BCA, 12743-8, BMP, 86980-8, 80864-8 #### [facility] ([id number]) [address] [place] [address] 72046 CHOLESTEROL:HDL 2.2 Normal 1.0-5.0 [facility] Comment on above: Performed By: ###Lily Blackmon BCA, 38787-7, BMP, 11508-7, 73815-6 #### [facility] ([id number]) [address] [place] [address] Triglyceride [Mass/Vol] 62 mg/dL Normal 27-150 [facility] Comment on above: Performed By: #### C BCA, 57968-3, BMP, 96790-0, 83876-4 #### [facility] ([id number]) [address] [place] [address] 57633 PROTIME AND INRon 01-25-2024 INR Coag (PPP) [Relative time] 1.1 {INR} Normal 0.8-1.1 [facility] Comment on above: Performed By: #### P INR, 66779-3 #### [facility] ([id number]) [address] [place] [address] 86142 PT Coag (PPP) [Time] 13.1 s Normal 9.8-13.2 [facility] Comment on above: Result Comment: NEW REFERENCE RANGE Performed By: #### P INR, 38468-8 #### [facility] ([id number]) [address] [place] [address] 42492 THYROID PROFILEon 01-25-2024 Free T4 [Mass/Vol] 1.41 ng/dL Normal 0.61-1.60 [facility] Comment on above: Performed By: #### C BCA, 45730-0, BMP, 72943-6, 68773-1 #### [facility] ([id number]) [address] [place] [address] 29533 TSH 0.22 uIU/mL Low 0.49-4.67 [facility] Comment on above: Performed By: #### C BCA, 20549-2, BMP, 99689-0, 10688-9 #### [facility] ([id number]) [address] [place] [address] 87752 aPTT Coag (PPP) [Time]on aPTT Coag (Bld) [Time] 36 s Normal 26-37 [facility] Comment on above: Result Comment: NEW REFERENCE RANGE Performed By: #### P INR, 23403-1 #### [facility] ([id number]) [address] [place] [address] CHEST WO CONTon CT CHEST WO [...] Markham MD on 12/03/2023 11:02 AM Normal [facility] BASIC METABOLIC PANLon 10-19 Anion gap [Moles/Vol] 11 mmol/L Normal 5-15 [facility] Comment on above: Performed By: #### C BCA, 45914-1, BMP, 30078-1, 75110-9 #### [facility] ([id number]) [address] [place] [address] 54941 Calcium [Mass/Vol] 7.2 mg/dL Low 8.5-10.5 [facility] Comment on above: Performed By: #### C BCA, 76391-3, BMP, 87948-5, 01129-1 #### [facility] ([id number]) [address] [place] [address] 73714 Chloride [Moles/Vol] 99 mmol/L Normal 98-109 [facility] Comment on above: Performed By: #### C BCA, 60981-4, BMP, 19754-2, 67733-8 #### [facility] ([id number]) [address] [place] [address] 69380 CO2 [Moles/Vol] 30 mmol/L Normal 22-32 [facility] Comment on above: Performed By: #### C BCA, 94563-2, BMP, 89599-7, 56232-5 #### [facility] ([id number]) [address] [place] [address] 30565 Creatinine [Mass/Vol] 1.00 mg/dL Normal 0.40-1.00 [facility] Comment on above: Result Comment: METH OD TRACEABLE TO IDMS STANDARD Performed By: #### C BCA, 91963-8, BMP, 98262-6, 04913-5 #### [facility] ([id number]) [address] [place] [address] 44076 GFR/1.73 sq M.predicted among non-blacks MDRD (S/P/Bld) [Vol rate/Area] 61 mL/min/{1.73_m2} Normal >59 [facility] Comment on above: Result Comment: Reported eGFR is based on the CKD-EPI 1 equation that does not use a race coefficient. Performed By: #### C BCA, 41145-4, BMP, 77349-7, 61019-2 #### [facility] ([id number]) [address] [place] [address] 00686 Glucose [Mass/Vol] 150 mg/dL High 65-99 [facility] Comment on above: Performed By: #### C BCA, 31920-3, BMP, 73347-9, 22872-2 #### [facility] ([id number]) [address] [place] [address] 27637 Potassium [Moles/Vol] 4.2 mmol/L Normal 3.5-5.0 [facility] Comment on above: Result Comment: SPEC IMEN HEMOLYZED, RESULTS INCREASED Performed By: #### C JORGE, 67490-1, BMP, 59095-5, 89236-4 #### [facility] ([id number]) [address] [place] [address] 52504 Sodium [Moles/Vol] 140 mmol/L Normal 134-146 [facility] Comment on above: Performed By: #### Neymar PATEL, 14617-6, BMP, 79726-6, 90133-5 #### [facility] ([id number]) [address] [place] [address] 16518 Urea nitrogen [Mass/Vol] 14 mg/dL Normal 5-27 [facility] Comment on above: Performed By: #### Neymar PATEL, 21770-9, BMP, 42245-7, 34831-7 #### [facility] ([id number]) [address] [place] [address] 77533 CBC AND AUTO DIFFon 12-20 23 ABSOLUTE BASOPHIL 0.1 X10E9/L Normal 0.0-0.2 [facility] Comment on above: Performed By: #### Neymar PATEL, 31091-0, BMP, 80287-6, 87808-7 #### [facility] ([id number]) [address] [place] [address] 72512 ABSOLUTE NEUTROPHIL 8.2 X10E9/L High 1.5-6.6 [facility] Comment on above: Performed By: #### Neymar BCA, 94597-5, BMP, 69178-8, 50445-6 #### [facility] ([id number]) [address] [place] [address] 84085 Basophils/100 WBC (Bld) 0.9 % Normal [facility] Comment on above: Performed By: #### C JORGE, 86503-2, BMP, 99028-8, 38039-8 #### [facility] ([id number]) [address] [place] [address] 19289 Eosinophils (Bld) [#/Vol] 0.1 10*3/uL Normal 0.0-0.4 [facility] Comment on above: Performed By: #### Neymar PATEL, 52965-6, BMP, 13409-6, 76308-6 #### [facility] ([id number]) [address] [place] [address] 46619 Eosinophils/100 WBC (Bld) 1.0 % Normal [facility] Comment on above: Performed By: #### Neymar PATEL, 67769-1, BMP, 05203-1, 76601-3 #### [facility] ([id number]) [address] [place] [address] 00999 Erythrocyte distribution width (RBC) [Ratio] 13.6 % Normal 11.5-15.0 [facility] Comment on above: Performed By: #### Neymar PATEL, 15422-5, BMP, 58331-8, 41212-5 #### [facility] ([id number]) [address] [place] [address] 04773 Hematocrit (Bld) [Volume fraction] 42.1 % Normal 35-47 [facility] Comment on above: Performed By: #### Neymar PATEL, 64474-1, BMP, 12934-7, 90733-6 #### [facility] ([id number]) [address] [place] [address] 16393 Hemoglobin (Bld) [Mass/Vol] 14.4 g/dL Normal 11.7-15.5 [facility] Comment on above: Performed By: #### Neymar PATEL, 99762-9, BMP, 87432-3, 51907-2 #### [facility] ([id number]) [address] [place] [address] 55887 Lymphocytes (Bld) [#/Vol] 1.7 10*3/uL Normal 1.0-3.5 [facility] Comment on above: Performed By: #### Neymar PATEL, 66102-4, BMP, 40071-5, 00132-4 #### [facility] ([id number]) [address] [place] [address] 23119 Lymphocytes/100 WBC (Bld) 16.0 % Normal [facility] Comment on above: Performed By: #### Neymar PATEL, 95641-8, BMP, 51485-0, 31682-2 #### [facility] ([id number]) [address] [place] [address] 90503 MCH (RBC) [Entitic mass] 31.1 pg Normal 27-34 [facility] Comment on above: Performed By: #### Neymar PATEL, 35184-0, BMP, 47624-8, 83967-1 #### [facility] ([id number]) [address] [place] [address] 63744 MCHC (RBC) [Mass/Vol] 34.1 g/dL Normal 32-36 [facility] Comment on above: Performed By: #### Neymar PATEL, 15393-2, BMP, 65097-9, 89475-9 #### [facility] ([id number]) [address] [place] [address] 03802 MCV (RBC) [Entitic vol] 91 fL Normal 80-100 [facility] Comment on above: Performed By: #### Neymar PATEL, 91534-9, BMP, 18173-2, 98990-3 #### [facility] ([id number]) [address] [place] [address] 52871 Monocytes (Bld) [#/Vol] 0.7 10*3/uL Normal 0-0.9 [facility] Comment on above: Performed By: #### C BCA, 21957-7, BMP, 19428-4, 53470-7 #### [facility] ([id number]) [address] [place] [address] 59415 Monocytes/100 WBC (Bld) 6.3 % Normal [facility] Comment on above: Performed By: #### Neymar BCA, 29101-6, BMP, 61428-8, 95368-5 #### [facility] ([id number]) [address] [place] [address] 78351 Neutrophils/100 WBC (Bld) 75.8 % Normal [facility] Comment on above: Performed By: #### Neymar BCA, 27824-0, BMP, 30018-4, 99169-9 #### [facility] ([id number]) [address] [place] [address] 42045 Platelet mean volume (Bld) [Entitic vol] 8.3 fL Normal 7-12 [facility] Comment on above: Performed By: #### Neymar BCA, 47527-3, BMP, 28438-9, 69319-1 #### [facility] ([id number]) [address] [place] [address] 46831 Platelets (Bld) [#/Vol] 308 10*3/uL Normal 150-450 [facility] Comment on above: Performed By: #### Neymar BCA, 30170-9, BMP, 90888-8, 98931-8 #### [facility] ([id number]) [address] [place] [address] 22121 RBC COUNT 4.63 X10E12/L Normal 3.80-5.20 [facility] Comment on above: Performed By: #### Neymar BCA, 64457-3, BMP, 23252-9, 83885-6 #### [facility] ([id number]) [address] [place] [address] 60984 WBC (Bld) [#/Vol] 10.8 10*3/uL Normal 4.0-11.0 [facility] Comment on above: Performed By: #### C JORGE, 92252-4, BMP, 30632-2, 45570-5 #### [facility] ([id number]) [address] [place] [address] 42637 Fibrin D-dimer DDU (PPP) [Ma ss/Vol]on 10-19-2023 D DIMER 206 ng/mL DDU Normal <255 [facility] Comment on above: Result Comment: Results <255 ng/mL DDU: The presence of a VTE can safely be excluded with a negative D-Dimer result and Wells score. A negative result doesn't exclude the possibility of DIC. The test be repeated along with other diagnostic tests if the patient's symptoms persist or worsen. [email or web address] Performed By: #### C JORGE, 24901-8, DMITRY, 60717-4, 31928-7 #### [facility] ([id number]) [address] [place] [address] 03707 Natriuretic peptide B [Mass/ Vol]on 10-19-2023 Natriuretic peptide B (Bld) [Mass/Vol] 57 pg/mL Normal <100.0 [facility] Comment on above: Performed By: #### C JORGE, 22873-3, BMP, 29564-9, 05498-6 #### [facility] ([id number]) [address] [place] [address] 38699 SARS/FLU A+B/RSV by NAAT/Mol ecularon 10-19-2023 SARS/FLU [...] operators who are performing tests using either [employer] or [employer] systems and is limited to laboratories that [...] repeat. Fact Sheet for Healthcare Providers: https://www.fda.gov/ media/482048/downloa d Fact Sheet for Patients: https://www.fda.gov/ media/681365/downloa d Normal [facility] Comment on above: Performed By: #### C OVFLR #### [facility] ([id number]) [address] [place] [address], [place] [address] TROPONIN Ion 10-19-2023 Troponin I.cardiac [Mass/Vol] ng/mL Normal 0.00-0.04 [facility] Comment on above: Performed By: #### C BCA, 60018-8, [facility], 75736-3, 09227-1 #### [facility] ([id number]) [address] [place] [address] XR CHEST 1 VWon 10-19-2023 XR CHEST [...] Lance Wagner on 10/19/2023 2:00 PM Normal [facility] CREATININEon 08-15-2022 Creatinine [Mass/Vol] 1.10 mg/dL Critically high 0.55-1.02 [facility] Comment on above: Performed By: #### C TRUPTI #### [facility] [address] [place] [address] Dr. Becky Gauthier EGFR-AF PALAUAN =60 Normal >=60 [facility] Comment on above: Performed By: #### C TRUPTI #### [facility] [address] [address] [address] Becky Gauthier EGFR-NON AF PALAUAN 49 mL/min/1.73m2 Critically low >=60 [facility] Comment on above: Performed By: #### C TRUPTI #### [facility] [address] [address] [address] Becky Gauthier Basic Metabolic PanelOrdered By: Willie Parra on 02-13-2021 Anion gap [Moles/Vol] 13 mmol/L 9 - 17 mmol/L [employer] Work Phone: Calcium [Mass/Vol] 7.7 mg/dL Low 8.6 - 10. 4 mg/dL [employer] Phone: Chloride [Moles/Vol] 105 mmol/L 98 - 10 7 mmol/L [facility] Phone: CO2 [Moles/Vol] 24 mmol/L 20 - 31 mmol/L [facility] Phone: Creatinine [Mass/Vol] 1.38 mg/dL High 0.50 - 0.90 mg/dL [employer] Phone: GFR 46 mL/min Low >60 [employer] Phone: GFR Non- 38 mL/min Low >60 [employer] Phone: GFR/1.73 sq M.predicted MDRD (S/P/Bld) [Vol rate/Area] [facility] Phone: Comment on above: Average GFR for 60-6 9 years old: 85 mL/min/1.73sq m Chronic Kidney Disease: <60 mL/min/1.73sq m Kidney failure: <15 mL/min/1.73sq m eGFR calculated using average adult body mass. Additional eGFR calculator available at: http://www.Pristine.io/multiple_crcl_2012.htm GFR/1.73 sq M.predicted MDRD (S/P/Bld) [Vol rate/Area] NOT REPORTED [facility] Phone: Glucose [Mass/Vol] 94 mg/dL 70 - 99 mg/dL [facility] [employer] Phone: Interpretation and review of laboratory results Abnormal [employer] Phone: Potassium [Moles/Vol] 3.6 mmol/L Low 3.7 - 5.3 mmol/L [facility] Phone: Sodium [Moles/Vol] 142 mmol/L 135 - 144 mmol/L [facility] Phone: Urea nitrogen (BldV) [Mass/Vol] 16 mg/dL 8 - 23 mg/dL [facility] Work Phone: Urea nitrogen/Creatinine (Bld) [Mass ratio] 12 [facility] Work Phone: Basic Metabolic Profon 02-13 (cont.) Normal [facility] Comment on above: Result Comment: Aver age GFR for 60-69 years old: 85 mL/min/1.73sq m Chronic Kidney Disease: <60 mL/min/1.73sq m Kidney failure: <15 mL/min/1.73sq m eGFR calculated using average adult body mass. Additional eGFR calculator available at: http://www.Pristine.io/multiple_crcl_2011.htm Performed By: #### B MP #### [facility] [address] [facility] [place] [address] Gauge And Instrument Inspector: Oscar Mane MD Anion gap [Moles/Vol] 13 mmol/L Normal 9-17 [facility] Comment on above: Performed By: #### B MP #### [facility] [address] [facility] [place] [address] Gauge And Instrument Inspector: Oscar Mane MD BUN/CRE Ratio 12 Normal 9-20 [facility] Comment on above: Performed By: #### B MP #### [facility] [address] [facility] [place] [address] Gauge And Instrument Inspector: Oscar Mane MD Calcium [Mass/Vol] 7.7 mg/dL Low 8.6-10.4 [facility] Comment on above: Performed By: #### B MP #### [facility] [address] [facility] [facility] [place] [address] Gauge And Instrument Inspector: Oscar Mane MD Chloride [Moles/Vol] 105 mmol/L Normal 98-107 [facility] Comment on above: Performed By: #### B MP #### [facility] [address] [place] [address] Gauge And Instrument Inspector: Oscar Mane MD CO2 [Moles/Vol] 24 mmol/L Normal 20-31 [facility] Comment on above: Performed By: #### B MP #### [facility] [address] [place] [address] Gauge And Instrument Inspector: Osacr Mane MD Creatinine [Mass/Vol] 1.38 mg/dL High 0.50-0.90 [facility] Comment on above: Performed By: #### B MP #### [facility] [address] [place] [address] Gauge And Instrument Inspector: Oscar Mane MD GFR, Amer 46 mL/min Low >60 [facility] Comment on above: Performed By: #### B MP #### [facility] [address] [place] [address] Gauge And Instrument Inspector: Oscar Mane MD GFR,non Amer 38 mL/min Low >60 [facility] Comment on above: Performed By: #### B MP #### [facility] [address] [place] [address] Gauge And Instrument Inspector: Oscar Mane MD Glucose [Mass/Vol] 94 mg/dL Normal 70-99 [facility] Comment on above: Performed By: #### B MP #### [facility] [address] [place] [address] Gauge And Instrument Inspector: Oscar Mane MD Potassium [Moles/Vol] 3.6 mmol/L Low 3.7-5.3 [facility] Comment on above: Performed By: #### B MP #### [facility] [address] [place] [address] Gauge And Instrument Inspector: Oscar Mane MD Sodium [Moles/Vol] 142 mmol/L Normal 135-144 [facility] Comment on above: Performed By: #### B MP #### [facility] [address] [place] [address] Gauge And Instrument Inspector: Oscar Mane MD Urea nitrogen [Mass/Vol] 16 mg/dL Normal 8-23 [facility] Comment on above: Performed By: #### B MP #### [facility] [address] [facility] [place] [address] Gauge And Instrument Inspector: Oscar Mane MD Staging: NOT REPORTED Normal [facility] Comment on above: Performed By: #### B MP #### [facility] [address] [facility] [place] [address] Gauge And Instrument Inspector: Oscar Mane MD EKG 12 leadOrdered By: Willie Parra on 02-13-2021 Atrial Rate 69 BPM [employer] Phone: P [place] 86 degrees [employer] Phone: P-R Interval 134 ms [employer] Phone: Q-T Interval 444 ms [employer] Phone: QRS Duration 84 ms [employer] Phone: QTc Calculation (Bazett) 475 ms [employer] Phone: R [place] 78 degrees [employer] Phone: T [place] 135 degrees [employer] Phone: Ventricular Rate 69 BPM [employer] Phone: Sinus rhythm with marked sinus arrhythmia ST & T wave abnormality, consider anterolateral ischemia Prolonged QT Abnormal ECG No previous ECGs available [employer] Phone: [place], Mhpn Incoming Ekg Results From [facility] - 02/13/2021 8:17 AM EDT Sinus rhythm with marked sinus arrhythmia ST & T wave abnormality, consider anterolateral ischemia Prolonged QT Abnormal ECG No previous ECGs available [facility] Work Phone: BUN + Creatinineon 1 (cont.) Normal [facility] Comment on above: Result Comment: Aver age GFR for 60-69 years old: 85 mL/min/1.73sq m Chronic Kidney Disease: <60 mL/min/1.73sq m Kidney failure: <15 mL/min/1.73sq m eGFR calculated using average adult body mass. Additional eGFR calculator available at: http://www.Pristine.io/multiple_crcl_2011.htm Performed By: #### B UNCRT #### [facility] [place] [address] Gauge And Instrument Inspector: Oscar Mane MD Creatinine [Mass/Vol] 0.92 mg/dL High 0.50-0.90 [facility] Comment on above: Performed By: #### B UNCRT #### [facility] [place] [address] Gauge And Instrument Inspector: Oscar Mane MD GFR, Amer >60 Normal >60 [facility] Comment on above: Performed By: #### B UNCRT #### [facility] [address] [place] [address] Gauge And Instrument Inspector: Oscar Mane MD GFR,non Amer >60 Normal >60 [facility] Comment on above: Performed By: #### B UNCRT #### [facility] [place] [address] Gauge And Instrument Inspector: Oscar Mane MD Urea nitrogen [Mass/Vol] 14 mg/dL Normal 8-23 [facility] Comment on above: Performed By: #### B UNCRT #### [facility] [address] [facility] [place] [address] Gauge And Instrument Inspector: Oscar Mane MD Staging: NOT REPORTED Normal [facility] Comment on above: Performed By: #### B UNCRT #### [facility] [address] [facility] [place] [address] Gauge And Instrument Inspector: Oscar Mane MD BUN + CreatinineOrdered By: Willie Parra on 02-12-2021 Creatinine [Mass/Vol] 0.92 mg/dL High 0.50 - 0.90 mg/dL [employer] Phone: GFR >60 >60 mL/min [employer] Phone: GFR Non- >60 >60 mL/min [employer] Phone: GFR/1.73 sq M.predicted MDRD (S/P/Bld) [Vol rate/Area] [employer] Phone: Comment on above: Average GFR for 60-6 9 years old: 85 mL/min/1.73sq m Chronic Kidney Disease: <60 mL/min/1.73sq m Kidney failure: <15 mL/min/1.73sq m eGFR calculated using average adult body mass. Additional eGFR calculator available at: http://www.[employer]Tapsy.Avenida/multiple_crcl_2012.htm GFR/1.73 sq M.predicted MDRD (S/P/Bld) [Vol rate/Area] NOT REPORTED [employer] Phone: Interpretation and review of laboratory results Abnormal [employer] Phone: Urea nitrogen (BldV) [Mass/Vol] 14 mg/dL 8 - 23 mg/dL [employer] Phone: Catheterization and angiogra phy procedure details panelOrdered By: Willie Parra on 02-12-2021 Cardiac Diagnostic + PCI Report Demographics Patient AMANDA Flores Date of Study 02/12/2021 Name Date of 1950 Gender Female Age 70 year(s) Race Room [id number]^FIDELMarvWILLIE Height: 67 inch, 170.18 cm Number Corporate [id number] Weight: 132 pounds, 59.9 kg ID # Patient [id number] BSA: 1.69 m^2 BMI: 20.67 Acct # kg/m^2 MR # [id number] Performing Physician Willie Parra Referring Physician # [...] - Nitroglycerin I (more content not included)... [employer] Phone: Roshan, pn Incoming Cardio Results From [facility] - 02/12/2021 2:56 PM EDT Cardiac Diagnostic + PCI Report Demographics Patient AMANDA DOVER S Date of Study 02/12/2021 Name Date of 1950 Gender Female Age 70 year(s) Race Room [id number]^FIDELMarvWILLIE Height: 67 inch, 170.18 cm Number Corporate [id number] Weight: 132 pounds, 59.9 kg ID # Patient [id number] BSA: 1.69 m^2 BMI: 20.67 Acct # kg/m^2 MR # [id number] Performing Physician Willie Parra Referring Physician # [...] units. - Heparin (more content not included)... [employer] Phone: POC Glucose FingerstickOrd ed By: Willie Parra on 02-12-2021 Glucose [Mass/Vol] 89 mg/dL 65 - 105 mg/dL [employer] Phone: Glucose [Mass/Vol] 79 mg/dL 65 - 105 mg/dL [employer] Phone: Glucose [Mass/Vol] 100 mg/dL 65 - 105 mg/dL [employer] Phone: Vital Signs Date Time Vital Sign Value Performing Clinician Facility 07-28-2024 13:29-0400 Body height 170.2 cm Eileen Fonseca [employer] Work Phone: [employer] 07-28-2024 13:29-0400 Body mass index (BMI) [Ratio] 18.78 kg/m2 Eileen Fonseca DO Work Phone: [employer] 07-28-2024 13:29-0400 Body weight 54.39 kg Eileen Fonseca DO Work Phone: [facility] 07-28-2024 13:29-0400 Diastolic blood pressure 66 mm[Hg] Eileen Fonseca DO Work Phone: [facility] 07-28-2024 13:29-0400 Heart rate 91 /min Eileen Fonseca DO Work Phone: [facility] 07-28-2024 13:29-0400 SaO2% (BldA) [Mass fraction] 100 % Eileen Fonseca DO Work Phone: [facility] 07-28-2024 13:29-0400 Systolic blood pressure 106 mm[Hg] Eileen Fonseca DO Work Phone: [facility] 05-17-2024 09:27-0400 Body height 170.18 cm DO Miguel House Work Phone: [facility] 05-17-2024 09:27-0400 Body mass index (BMI) [Ratio] 19.1 kg/m2 DO Miguel House Work Phone: [facility] 05-17-2024 09:27-0400 Body temperature 97.1 [degF] DO Miguel House Work Phone: [facility] 05-17-2024 09:27-0400 Body weight 55.33 kg DO Miguel House Work Phone: [facility] 05-17-2024 09:27-0400 Diastolic blood pressure 73 mm[Hg] DO Miguel House Work Phone: [facility] 05-17-2024 09:27-0400 Heart rate 87 /min DO Miguel House Work Phone: [facility] 05-17-2024 09:27-0400 Respiratory rate 16 /min DO Miguel House Work Phone: [facility] 05-17-2024 09:27-0400 SaO2% (BldA) [Mass fraction] 99 % DO Miguel House Work Phone: [facility] 05-17-2024 09:27-0400 Systolic blood pressure 120 mm[Hg] DO Miguel House Work Phone: [facility] 03-15-2024 10:00-0400 Body temperature 97.6 [degF] DO Miguel House Work Phone: [facility] 03-15-2024 10:00-0400 Body weight 52.61 kg DO Miguel House Work Phone: [facility] 03-15-2024 10:00-0400 Diastolic blood pressure 85 mm[Hg] DO Miguel House Work Phone: [facility] 03-15-2024 10:00-0400 Heart rate 96 /min DO Miguel House Work Phone: [facility] 03-15-2024 10:00-0400 Respiratory rate 20 /min DO Miguel House Work Phone: [facility] 03-15-2024 10:00-0400 SaO2% (BldA) [Mass fraction] 64 % DO Miguel House Work Phone: [facility] 03-15-2024 10:00-0400 Systolic blood pressure 136 mm[Hg] DO Miguel House Work Phone: [facility] 02-24-2024 15:03-0400 Body height 170.18 cm DO Miguel House Work Phone: [facility] 02-24-2024 14:33-0400 Body height 170.18 cm DO Miguel House Work Phone: [facility] 02-24-2024 14:33-0400 Body mass index (BMI) [Ratio] 18.4 kg/m2 DO Miguel House Work Phone: [facility] 02-24-2024 14:33-0400 Body weight 53.52 kg DO Miguel House Work Phone: [facility] 02-24-2024 14:33-0400 Diastolic blood pressure 75 mm[Hg] DO Miguel House Work Phone: [facility] 02-24-2024 14:33-0400 Heart rate 73 /min DO Miguel House Work Phone: [facility] 02-24-2024 14:33-0400 Respiratory rate 18 /min DO Miguel House Work Phone: [facility] 02-24-2024 14:33-0400 SaO2% (BldA) [Mass fraction] 97 % DO Miguel House Work Phone: [facility] 02-24-2024 14:33-0400 Systolic blood pressure 123 mm[Hg] DO Miguel House Work Phone: [facility] 01-07-2024 11:27-0400 Body height 170.2 cm Eileen Fonseca DO Work Phone: [facility] 01-07-2024 11:27-0400 Body mass index (BMI) [Ratio] 18.14 kg/m2 Eileen Fonseca DO Work Phone: [facility] [employer] [facility] 01-07-2024 11:27-0400 Body weight 52.53 kg Eileen Fonseca DO Work Phone: [facility] [employer] [facility] 01-07-2024 11:27-0400 Diastolic blood pressure 65 mm[Hg] Eileen Fonseca DO Work Phone: [facility] [employer] [facility] 01-07-2024 11:27-0400 Heart rate 71 /min Eileen Fonseca DO Work Phone: [facility] [employer] 01-07-2024 11:27-0400 SaO2% (BldA) [Mass fraction] 93 % Eileen Fonseca DO Work Phone: [facility] 01-07-2024 11:27-0400 Systolic blood pressure 109 mm[Hg] Eileen Fonseca DO Work Phone: [facility] 02-13-2021 11:04-0400 Body temperature 98.29 [degF] Willie Parra MD Work Phone: [facility] Work Phone: 02-13-2021 11:04-0400 Diastolic blood pressure 61 mm[Hg] Willie Parra MD Work Phone: [employer] Work Phone: 02-13-2021 11:04-0400 Heart rate 81 /min Willie Parra MD Work Phone: [facility] Work Phone: 02-13-2021 11:04-0400 Respiratory rate 20 /min Willie Parra MD Work Phone: [employer] Work Phone: 02-13-2021 11:04-0400 SaO2% (BldA) [Mass fraction] 93 % Willie Parra MD Work Phone: [facility] Work Phone: 02-13-2021 11:04-0400 Systolic blood pressure 119 mm[Hg] Willie Parra MD Work Phone: [employer] Work Phone: 02-12-2021 11:29-0400 Body height 170.2 cm Willie Parra MD Work Phone: [facility] Work Phone: 02-12-2021 11:29-0400 Body mass index (BMI) [Ratio] 20.75 kg/m2 Willie Parra MD Work Phone: [facility] Work Phone: 02-12-2021 11:29-0400 Body weight 60.1 kg Willie Parra MD Work Phone: [employer] Work Phone: Encounters Encounter Date Encounter Type Care Provider Facility Start: 09-27-2024 End: 09-27-2024 Orders Only Eileen Fonseca DO Work Phone: [facility] Comment on above: Pneumonia of left lo wer lobe due to infectious organism (Primary Dx) CRITICAL LAB Start: 09-26-2024 End: 09-26-2024 Telephone encounter Cecilia MORTON [facility] Start: 08-17-2024 End: 08-17-2024 Emergency department patient visit MIGUEL BROCK [facility] Start: 08-10-2024 End: 08-10-2024 Refill Navin Spears INTERNATIONAL OPERATIONS MANAGER-AMMONIA BOX OPERATOR Work Phone: [facility] Start: 07-28-2024 End: 07-28-2024 ambulatory [facility] Start: 07-28-2024 End: 07-28-2024 Office outpatient visit 25 minutes Eileen Fonseca DO Work Phone: [facility] Comment on above: Moderate COPD (chron ic obstructive pulmonary disease) ([facility]) (Primary Dx); Tobacco abuse; 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; Primary lung adenocarcinoma, left ([facility]) Start: 07-13-2024 ambulatory MIGUEL Vargas [facility] Start: 07-12-2024 Registered Recurring DO Saad Brock [facility] Work Phone: Start: 07-12-2024 End: 07-12-2024 ambulatory DO Miguel Brock Work Phone: [facility] Work Phone: Start: 07-12-2024 End: 07-12-2024 Patient encounter procedure DO Miguel Brock Work [facility] Work Phone: Start: 05-17-2024 End: 05-17-2024 ambulatory DO Miguel Brock Work Phone: [facility] Work Phone: Start: 05-17-2024 End: 05-17-2024 Patient encounter procedure DO Miguel House Work Phone: [facility] Work Phone: Start: 05-17-2024 Registered Recurring DO Saad s House [facility] Work Phone: Start: 05-05-2024 End: 05-05-2024 ambulatory [facility] Start: 05-02-2024 Non-patient / Non-visit DO Arielle rles House Work Phone: [facility] Work Phone: Start: 04-25-2024 End: 04-28-2024 Emergency department patient visit [facility] Start: 04-25-2024 End: 04-27-2024 ambulatory [facility] Start: 04-20-2024 End: 04-20-2024 ambulatory [facility] Start: 04-20-2024 End: 04-21-2024 ambulatory [facility] Start: 04-19-2024 Non-patient / Non-visit DO Arielle rles House Work Phone: [facility] Work Phone: Start: 04-18-2024 End: 04-19-2024 Emergency department patient visit MONICA MANUEL [facility] Start: 04-12-2024 Non-patient / Non-visit DO Arielle rles House Work Phone: [facility] Work Phone: Start: 04-04-2024 Non-patient / Non-visit DO Arielle rles House Work Phone: [facility] Work Phone: Start: 03-23-2024 Non-patient / Non-visit DO Arielle rles House Work Phone: [facility] Work Phone: Start: 03-22-2024 End: 03-22-2024 ambulatory MIGUEL P HOUSE Facility:[facility] Start: 03-15-2024 Non-patient / Non-visit DO Arielle culver House Work Phone: [facility] Work Phone: Start: 03-15-2024 Registered Recurring DO Saad s House Work Phone: [facility] Work Phone: Start: 03-15-2024 End: 03-15-2024 ambulatory DO Miguel Brock Work Phone: [facility] Work Phone: Start: 03-15-2024 End: 03-15-2024 Patient encounter procedure DO Miguel Brock Work Phone: [facility] Work Phone: Start: 03-14-2024 End: 03-14-2024 ambulatory MIGUEL P HOUSE Facility:[facility] Start: 03-03-2024 End: 03-03-2024 ambulatory [facility] Start: 03-02-2024 End: 03-02-2024 Evaluation and management of inpatient [facility] Start: 03-01-2024 End: 03-02-2024 Evaluation and management of inpatient [facility] Start: 02-26-2024 End: 02-26-2024 ambulatory [facility] Start: 02-24-2024 ambulatory Urszula Bhat lity:[facility] Start: 02-24-2024 End: 02-24-2024 Patient encounter procedure DO Miguel Brock Work Phone: [facility] Work Phone: Start: 02-23-2024 End: 02-23-2024 ambulatory [facility] Start: 02-12-2024 End: 02-12-2024 ambulatory [facility] Start: 02-05-2024 End: 02-24-2024 ambulatory [facility] Start: 02-01-2024 End: 02-02-2024 Emergency department [facility] Start: 01-28-2024 Orders Only Eileen lopez DO Work Phone: [facility] Start: 01-27-2024 End: 01-27-2024 Evaluation and management of inpatient [facility] Start: 01-26-2024 End: 01-27-2024 Evaluation and management of inpatient [facility] Start: 01-25-2024 End: 01-25-2024 ambulatory [facility] Start: 01-25-2024 Encounter for other preprocedural examination [facility] Start: 01-07-2024 Documentation procedure Beulah owens RN [facility] Start: 01-07-2024 End: 01-07-2024 Office outpatient visit 25 minutes Eileen Fonseca DO Work Phone: [facility] Comment on above: Moderate COPD (chron ic obstructive pulmonary disease) ([facility]) (Primary Dx); Pulmonary nodule; 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); Dyspnea on exertion; Abnormal CT of the chest; Tobacco abuse Start: 01-07-2024 End: 01-07-2024 ambulatory [facility] Start: 12-31-2023 Telephone encounter Eileen reich DO Work Phone: [facility] Start: 12-07-2023 Telephone encounter [facility] Start: 12-02-2023 End: 12-02-2023 ambulatory [facility] Start: 11-18-2023 End: 11-18-2023 ambulatory MIGUEL BROCK Facility:[facility] Start: 11-12-2023 End: 11-12-2023 ambulatory Renzo Gilliland MD Facility:[facility] Start: 10-21-2023 Telephone encounter [facility] P[facility] Start: 10-19-2023 End: 10-20-2023 [facility] Start: 10-19-2023 End: 10-20-2023 Emergency department [facility] Start: 02-17-[address] MIGUEL BROCK Facili ty:[facility] Start: 08-15-2022 End: 08-16-[address] MIGUEL BROCK Facility:[facility] Start: 02-12-2021 End: 02-13-2021 ambulatory WILLIE PARRA [facility] Start: 02-12-2021 End: 02-13-2021 Subsequent hospital visit by physician Willie Parra MD Work Phone: [facility] Comment on above: Abnormal [...] History of thyroidectomy S/P total thyroidectomy Angie Jordin dutton LPN Plan of Treatment Date Care Activity Detail Author Start: 06-04-2032 DTaP,Tdap and Td Vaccines (3 - Td or Tdap) DTaP,Tdap and Td Vaccines (3 - Td or Tdap) [facility] Start: 09-11-2028 DTaP/Tdap/Td vaccine (2 - Td) DTaP/Tdap/Td vaccine (2 - Td) [facility] Work Phone: Start: 12-11-2026 Screening for malign ant neoplasm of colon Colonoscopy [facility] Start: 08-17-2025 Adult BMI Screening Adult BMI Screen ing [facility] Start: 08-17-2025 Tobacco Screening Tobacco Screening [facility] Start: 07-28-2025 Adult BMI Screening Adult BMI Screen ing [facility] Start: 07-28-2025 Tobacco Screening Tobacco Screening [facility] Start: 01-25-2025 Tobacco Screening Tobacco Screening [facility] Start: 01-06-2025 Adult BMI Screening Adult BMI Screen ing [facility] Start: 01-06-2025 Tobacco Screening Tobacco Screening [facility] Start: 11-03-2024 End: 11-03-2024 Patient encounter procedure 11/03/2024 1:30 PM EST Office Visit [facility] [address] [place] [address] [place] [address] [place] [id number] [facility] Start: 10-28-2024 End: 09-27-2025 XR Chest PA and Lateral X-ray chest 2 views Imaging Routine Pneumonia of left lower lobe due to infectious organism Expected: 10/28/2024 (Approximate), Expires: 09/27/2025 [facility] Work Phone: Comment on above: Expected: 10/28/2024 (Approximate), Expires: 09/27/2025 Start: 10-19-2024 Adult BMI Screening Adult BMI Screen ing [facility] Start: 10-19-2024 Tobacco Screening Tobacco Screening [facility] Start: 09-26-2024 End: 09-26-2025 XR Chest PA and Lateral X-ray chest 2 views Imaging Routine Chest pain, unspecified type Expected: 09/26/2024, Expires: 09/26/2025 [facility] Work Phone: Comment on above: Expected: 09/26/2024 , Expires: 09/26/2025 Start: 06-26-2024 Influenza vaccination Influenza Vacc ine [facility] Start: 03-03-2024 End: 03-03-2024 Patient encounter procedure 03/03/2024 2:00 PM EDT Office Visit [facility] [address] [place] [id number] Eileen Fonseca, DO [address] [address] [facility] Start: 02-24-2024 Patient referral [facility] Work Phone: Start: 02-05-2024 Urine screening for protein Urine Microalbumin [facility] Start: 01-26-2024 End: 01-26-2024 Admission to same day surgery center 01/26/2024 12:00 PM EDT - 01/26/2024 1:00 PM EDT Surgery [facility] [address] [place] [address] Eileen Fonseca, DO [address] [address] BRONCHOSCOPY ALVEOLAR LAVAGE [32134 (CPT )] [facility] Comment on above: BRONCHOSCOPY ALVEOLA R LAVAGE [73260 (CPT )] Start: 01-26-2024 End: 01-26-2024 [facility] w/brncl alveolar lavage BRONCHOSCOPY ALVEOLAR LAVAGE LANGULAR OBSTRUCTION AND CHRONIC COUGH 01/26/2024 12:00 PM EDT [facility] Start: 01-26-2024 Subsequent hospital visit by physician 01/26/2024 12:00 PM EDT Hospital Encounter [facility] [address] [place] [address] Eileen Fonseca, DO [address] [address] [facility] Start: 01-19-2024 End: 01-19-2024 Admission to establishment 01/19/2024 10:00 AM EDT Support Visit [facility] On [address] [address] [facility] Start: 01-07-2024 End: 01-07-2024 Patient encounter procedure 01/07/2024 11:30 AM EDT Office Visit [facility] [address] [place], [place] [address] [place] [id number] Eileen Fonseca, DO [address] [address] [facility] Start: 12-24-2023 End: 12-24-2023 Patient encounter procedure 12/24/2023 3:45 PM EST Office Visit [facility] [place] [address] Eileen Fonseca, DO [address] [address] [facility] Start: 06-26-2023 COVID-19 Vaccine ( season) COVID-19 Vaccine ( season) [employer] Start: 06-05-2022 Depression Screening Depression Scre ening [employer] Start: 09-11-2021 COVID-19 Vaccine (3 - Moderna risk series) COVID-19 Vaccine (3 - Moderna risk series) [facility] Start: 06-26-2021 Influenza vaccination Flu vacc ine (Season Ended) [employer] Phone: Start: 02-08-2021 Annual Wellness Visi t (AWV) Annual Wellness Visit (AWV) [employer] Phone: Start: 11-10-2020 Administration of varicella zoster vaccine Zoster (Shingles) Vaccine (2 of 2) [employer] Start: 2017 Fall Risk Screening Fall Risk Screen ing [employer] Start: 2017 Pneumococcal 65+ yea rs Vaccine (2 of 2 - PPSV23) Pneumococcal 65+ years Vaccine (2 of 2 - PPSV23) [employer] Phone: Start: 2007 Screening for osteoporosis DEXA (modify frequency per FRAX score) [employer] Phone: Start: 2002 Screening for malign ant neoplasm of breast Breast cancer screen [employer] Phone: Start: 2002 Screening for malign ant neoplasm of colon Colon cancer screen colonoscopy [employer] Phone: Start: 2002 Shingles Vaccine (1 of 2) Shingles Vaccine (1 of 2) [employer] Phone: Start: 1970 Adult BMI Follow Up Plan Adult BMI Follow Up Plan [employer] Start: 1970 Diabetic foot examination [facility] Foot Exam [facility] Start: 1968 COVID-19 Vaccine (1) COVID-19 Vaccin e (1) [employer] Phone: Start: 1964 Depression Screening Depression Scre ening [employer] Start: 1962 Lipid panel Lipid screen [employer] Work Phone: Start: 1952 Glaucoma screening Diabetic Op hthalmology Exam [employer] Start: 1952 Hepatitis C screening Hepatitis C sc foreign [employer] Phone: Start: 1952 Medicare Annual Well ness Visit Medicare Annual Wellness Visit [employer] Start: 1952 Tobacco Counseling Tobacco Counselin g [employer] End: 09-26-2025 Basic metabolic 2000 panel - Serum or Plasma Basic Metabolic Panel Lab Routine Chest pain, unspecified type 1 Occurrences starting 09/26/2024 until 09/26/2025 [employer] Comment on above: 1 Occurrences starti ng 09/26/2024 until 09/26/2025 End: 09-26-2025 CBC W Auto Differential panel - Blood CBC auto differential Lab Routine Chest pain, unspecified type 1 Occurrences starting 09/26/2024 until 09/26/2025 [employer] Comment on above: 1 Occurrences starti ng 09/26/2024 until 09/26/2025 CT Chest WO contrast [facility] CT Chest WO contrast [facility] End: 09-26-2025 D-Dimer D-Dimer Lab Routine Chest pain, unspecified type 1 Occurrences starting 09/26/2024 until 09/26/2025 [employer] Comment on above: 1 Occurrences starti ng 09/26/2024 until 09/26/2025 End: 02-12-2021 Glucose [Mass/volume] in Serum or Plasma POCT Glucose Point of Care Testing Routine One Time for 1 Occurrences starting 02/12/2021 until 02/12/2021 [employer] Phone: Comment on above: One Time for 1 Occur rences starting 02/12/2021 until 02/12/2021 End: 01-06-2025 Home O2 eval (desaturation screen) Home O2 eval (desaturation screen) Respiratory Care Routine Dyspnea on exertion 1 Occurrences starting 01/07/2024 until 01/06/2025 [employer] Work Phone: Comment on above: 1 Occurrences starti ng 01/07/2024 until 01/06/2025 Oxygen therapy [[facility] Data Set] Initiate Oxygen Therapy Protocol Respiratory Care Routine Daily until discontinued starting 02/12/2021 [facility] Work Phone: Comment on above: Daily until disconti nued starting 02/12/2021 Patient referral [facility] Work Phone: [facility] Immunizations Immunization Date Immunization Notes Care Provider Fa bernard 08-10-2023 influenza virus vaccine, unspecified formulation Eileen Fonseca DO Work Phone: [facility] 06-04-2022 tetanus toxoid, redu anthony diphtheria toxoid, and acellular pertussis vaccine, adsorbed Angie Luis A [facility] 09-15-2020 zoster vaccine recombinant Angie Luis A [facility] 09-15-2020 zoster vaccine, unspecified formulation Angie Luis A [facility] 08-10-2020 pneumococcal conjuga te vaccine, 13 valent Angie Luis A ENGINEERING AND DEVELOPMENT DIRECTOR [facility] 09-23-2018 influenza, injectabl e, quadrivalent, preservative free Angie Luis A [facility] 09-11-2018 tetanus toxoid, redu anthony diphtheria toxoid, and acellular pertussis vaccine, adsorbed Angie Luis A ENGINEERING AND DEVELOPMENT DIRECTOR [facility] 11-01-2015 influenza, seasonal, injectable, preservative free Angie Luis A ENGINEERING AND DEVELOPMENT DIRECTOR [facility] 09-13-2009 novel [id number], preservative-free, injectable Angie Luis A ENGINEERING AND DEVELOPMENT DIRECTOR [facility] Payers Date Payer Category Payer Self-pay [id number] 2020 Medicaid [id number] 2020 Medicaid [id number] 2019 Private Health Insurance [id number] 2019 Medicare UNITED[employer] MEDICARE UHC MEDICARE DUAL COMPLETE [id number] 2019-Present [phone] [address] [address] [place] [address] [id number] 2019 Medicare HMO [facility] MEDICARE [id number] 2017 Medicare [id number] 1.2.840.638661.1.13.239. 2.7.3.499456.315 1952 Unknown [id number] 2.16.840.1.292832.3.579. 2.177 1952 Unknown [id number] 2.16.840.1.268318.3.579. 2.593 1952 Unknown [id number] 2.16.840.1.220693.3.579. 2.593 1952 Unknown [id number] 2.16.840.1.283523.3.579. 2.1286 1952 Unknown [id number] 2.16.840.1.598236.3.579. 2.1286 1952 Unknown [id number] 2.16.840.1.865101.3.579. 2.1286 1952 Unknown [id number] 2.16.840.1.694183.3.579. 2.128 1952 Unknown [id number] 2.16.840.1.016791.3.579. 2.1285 1952 Unknown [id number] 2.16.840.1.244874.3.579. 2.1285 1952 Unknown [id number] 2.16.840.1.648562.3.579. 2.1285 1952 Unknown [id number] 2.16.840.1.520985.3.579. 2.1285 1952 Unknown [id number] 2.16.840.1.052165.3.579. 2.1285 1952 Unknown [id number] 2.16.840.1.042644.3.579. 2.1285 1952 Unknown [id number] 2.16.840.1.739609.3.579. 2.1285 1952 Unknown [id number] 2.16.840.1.910041.3.579. 2.1285 1952 Unknown [id number] 2.16.840.1.032362.3.579. 2.1285 1952 Unknown [id number] 2.16.840.1.130964.3.579. 2.1285 1952 Unknown [id number] 2.16.840.1.460307.3.579. 2. 1952 Unknown [id number] 2.16.840.1.685045.3.579. 2. 1952 Unknown [id number] 2.16.840.1.437370.3.579. 2. 1952 Unknown [id number] 2.16.840.1.486260.3.579. 2.1285 1952 Unknown [id number] 2.16.840.1.495100.3.579. 2.1285 1952 Unknown [id number] 2.16.840.1.644109.3.579. 2.1285 1952 Unknown [id number] 2.16.840.1.280055.3.579. 2.1285 1952 Unknown [id number] 2.16.840.1.689010.3.579. 2.1285 1952 Unknown [id number] 2.16.840.1.807899.3.579. 2.1285 1952 Unknown [id number] 2.16.840.1.228459.3.579. 2.1285 1952 Unknown [id number] 2.16.840.1.679450.3.579. 2.1285 1952 Unknown [id number] 2.16.840.1.188820.3.579. 2.1285 1952 Unknown [id number] 2.16.840.1.679414.3.579. 2.1285 1952 Unknown [id number] 2.16.840.1.160446.3.579. 2.1285 1952 Unknown [id number] 2.16.840.1.108670.3.579. 2.1285 1952 Unknown [id number] 2.16.840.1.970606.3.579. 2.1285 1952 Unknown [id number] 2.16.840.1.712681.3.579. 2.1285 1952 Unknown [id number] 2.16.840.1.479592.3.579. 2.1285 1952 Unknown [id number] 2.16.840.1.478443.3.579. 2.1285 1952 Unknown [id number] 2.16.840.1.431433.3.579. 2.1285 1952 Unknown [id number] 2.16.840.1.511081.3.579. 2.1286 1952 Unknown [id number] 2.16.840.1.856462.3.579. 2.1286 1952 Unknown [id number] 2.16.840.1.383704.3.579. 2.1286 1952 Unknown [id number] 2.16.840.1.130529.3.579. 2.1286 Medicare Medicare [id number] Unknown [id number] 2.16.840.1.543693.3.579. 2.531 Social History Date Type Detail Facility Start: 02-12-2021 End: 01-26-2024 Tobacco smoking status CAIS Current every day smoker [employer] Start: 02-12-2021 End: 02-14-2021 Cigarettes smoked current (pack per day) - Reported [employer] Phone: Start: 02-12-2021 End: 04-25-2024 Tobacco use and exposure Never used [facility] Start: 02-12-2021 End: 01-26-2024 Alcohol intake Current drinker of alcohol (finding) [employer] Phone: Start: 11-22-2015 Alcohol Comment RARE 1 DRINK E VERY 6 MONTHS [employer] Phone: Start: 1950 Sex Assigned At Not on file [employer] Phone: Exposure to SARS-CoV -2 (event) Not sure [facility] End: 10-16-2023 History of tobacco use Cigarette Smoker [employer] Start: 02-14-2021 End: 08-17-2024 Social connection and isolation panel [facility] Do you belong to any clubs or organizations such as roman catholic groups, unions, fraternal or athletic groups, or school groups? No [employer] Attends Club or Organization Meetings Not on file [facility] How often to you hav e a drink containing alcohol? Monthly or less [facility] How many standard dr inks containing alcohol do you have on a typical day? 1 or 2 [facility] How often do you hav e 6 or more drinks on 1 occasion? Never [facility] Do you feel stress - tense, restless, nervous, or anxious, or unable to sleep at night because your mind is troubled all the time - these days [OSQ] Not at all [facility] Start: 02-14-2021 Alcohol Comment rare [facility] Start: 01-07-2024 Tobacco smoking stat [facility] Ex-smoker [facility] Start: 02-24-2024 End: 05-17-2024 History of tobacco use Current smoker [facility] Start: 1950 Sex Assigned At Female F [facility] Start: 04-25-2024 Tobacco smoking stat [facility] Occasional tobacco smoker [facility] Start: 07-28-2024 End: 08-17-2024 Alcoholic beverage intake Ex-drinker (finding) [facility] Has the [employer], [employer], or [employer] threatened to shut off services in your home in past 12Mo Yes [facility] Start: 04-25-2024 Tobacco Comment Every now and then will have a cigarrette [facility] Start: 05-31-2015 Sex Female (finding) [facility] Medical Equipment Procedure Code Equipment Code Equipment Origin al Text Equipment Identifier Dates AAA repair with graft GRAFT HEMASHIELD [id number] FDA Start: 04-18-2019 AAA repair with graft GRAFT HEMASHIELD [id number] FDA Start: 04-18-2019 AAA repair with graft GRAFT HEMASHIELD [id number] FDA Start: 04-18-2019 Brng Hum 36-44mm Std Shldr - [id number] Start: 09-13-[address] c Rpl [id number] - [id number] Start: 09-13-2018 Cbl Orth Lcp 750 mm Ss 1.7mm - [id number] Start: 09-13-2018 Lens Iol Ultrase rt 20.5d - [id number] - [id number] Start: 09-02-2018 Ty Hum Cmprh 44m m Cocr +5mm - [id number] Start: 09-13-2018 Scr Bn 25mm 4.75 mm Fx Ang Lck - [id number] Start: 09-13-2018 [id number] Start: 07-22-2022 USE TO TEST 2 TI MES DAILY [id number] Start: 07-22-2022 Plg Bn Cmnt Med 11-13mm Im Cnl - [id number] Start: 09-13-2018 Gd Pin Orth 3.2m m 9in Stnm - [id number] Start: 09-13-2018 Bsplt Kim Cmprh 25mm Mn Tpr - [id number] Start: 09-13-2018 Bsplt Kim 36mm Cmprh - [id number] Start: 09-13-2018 Stm Hum 122mm 10 mm Cmprh Por - [id number] Start: 09-13-2018 Scr Bn 20mm 4.75 mm Fx Ang Lck - [id number] Start: 09-13-2018 Scr Bn 25mm 6.5m m Cntr Hex - [id number] Start: 09-13-2018 Scr Bn 20mm 4.75 mm Va Nonlock - [id number] Start: 09-13-2018 Scr Bn 15mm 4.75 mm Va Nonlock - [id number] Start: 09-13-2018 Goals Date Patient Goal [...] not feel well Clinical Notes 02-12-2021 to 09-27-2024 Telephone Encounter - Edith Madden - 09/27/2024 6:26 PM ESTTelephone Encounter - Edith Madden - 09/27/2024 6:26 PM ESTTelephone Encounter - Edith Madden - 09/27/2024 6:26 PM ESTAttachments Note Date & Type Note Facility 09-27-2024 Miscellaneous Notes Contract: [address] Fonseca for Critical Lab Numeric page called Phone # not working Called Dr Fonseca cell [facility] documented in this encounter [facility] 09-27-2024 Telephone encounter Note Contract: [address] Fonseca for Critical Lab [facility] 09-27-2024 Telephone encounter Note Numeric page called Phone # not working Called Dr Fonseca cell and [facility]cted [facility] 09-27-2024 Miscellaneous Notes ----- Message from Dr. Eileen Fonseca DO sent at 09/27/2024 2:27 PM EST ----- Please inform looks like LLL pneumonia. I sent z pack, cefdinir - she is to take both of these antibiotics starting today. I also sent prednisone taper and placed order for repeat CXR in 4 weeks Rpg Programmer Analyst called patient and informed her of the following: ----- Message from Dr. Eileen Fonseca DO sent at 09/27/2024 2:27 PM EST ----- Please inform looks like LLL pneumonia. I sent z pack, cefdinir - she is to take both of these antibiotics starting today. 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 documented in this encounter [facility] 09-27-2024 Telephone encounter Note ----- Message from Dr. Eileen Fonseca DO sent at 09/27/2024 2:27 PM EST ----- Please inform looks like LLL pneumonia. I sent z pack, cefdinir - she is to take both of these antibiotics starting today. I also sent prednisone taper and placed order for repeat CXR in 4 weeks [facility] 09-27-2024 Telephone encounter Note Rpg Programmer Analyst called patient and informed her of the following: ----- Message from Dr. Eileen Fonseca DO sent at 09/27/2024 2:27 PM EST ----- Please inform looks like LLL pneumonia. I sent z pack, cefdinir - she is to take both of these antibiotics starting today. 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 [facility] 09-26-2024 Miscellaneous Notes Patient's sister/HIPAA called the office and stated that patient has been having pain on her left side towards her back since 09/22/2024. Patient stated it feels like ball jelly or a mushy feeling. Patient stated that she is having more shortness of breath and has been coughing up white foamy phlegm. Patient is scheduled for a Chest CT on 10/06/2024. Patient would like to know if SE has any recommendations as she was unsure who she should call (body trimmer upholsterer, oncologist, her PCP). CXR today - 2 view. Needs D dimer, BMP and CBC please. DX: chest pain [employer]pg Programmer Analyst attempted to contact patient. No answer. Left message for patient to contact office. Left office phone number for reference. Per Dr Fonseca, patient to complete CXR today - 2 view. Needs D dimer, BMP and CBC. Order placed. Cecilia - please f/u with patient. Thanks Rpg Programmer Analyst called patient's sister/HIPAA, Eunice, informed Eunice that: Per Dr Fonseca, patient to complete CXR today - 2 view. Needs D dimer, BMP and CBC. Order placed. Eunice verbalized understanding and stated that she will take patient to have imaging and labs completed today. [facility] this [facility] 09-26-2024 Telephone encounter Note Patient's sister/BUTCH called the office and stated that patient has been having pain on her left side towards her back since 09/22/2024. Patient stated it feels like ball jelly or a mushy feeling. Patient stated that she is having more shortness of breath and has been coughing up white foamy phlegm. Patient is scheduled for a Chest CT on 10/06/2024. Patient would like to know if SE has any recommendations as she was unsure who she should call (body trimmer upholsterer, oncologist, her PCP). [facility] 09-26-2024 Telephone encounter Note CXR today - 2 view. Needs D dimer, BMP and CBC please. [facility] Telephone encounter Note [employer] Programmer Analyst attempted to contact patient. No answer. Left message for patient to contact office. Left office phone number for reference. Per Dr Fonseca, patient to complete CXR today - 2 view. Needs D dimer, BMP and CBC. Order placed. Cecilia - please f/u with patient. Thanks [employer] 09-26-2024 Telephone encounter Note Rpg Programmer Analyst called patient's sister/HIPAA, Eunice, informed Eunice that: Per Dr Fonseca, patient to complete CXR today - 2 view. Needs D dimer, BMP and CBC. Order placed. Eunice verbalized understanding and stated that she will take patient to have imaging and labs completed today. [employer] [facility] 09-15-2024 Note Entered by MATILDA BROCK DO on September 15, 2024 12:57:20 EST From: MIGUEL BROCK DO To: [facility]/pharmacy #[id number] Sent: 09/15/2024 12:57:20 EST Subject: Medication Management Approved Order:levothyroxine (levothyroxine 125 mcg (0.125 mg) oral tablet) TAKE 1 TABLET BY MOUTH EVERY DAY Qty: 90 tab(s) Days Supply: 90 Refills: 1 Substitutions Allowed Route To Pharmacy - [facility] [id number] Note from Pharmacy: REQUEST FOR 90 DAYS PRESCRIPTION. Signed by MIGUEL BROCK DO Cancelled: Discontinue:levothyroxine (levothyroxine 125 mcg (0.125 mg) oral tablet) Signed by MIGUEL BROCK DO From: [id number] To: MIGUEL BROCK DO Sent: September 15, 2024 11:31:38 AM PRODUCT/INDUSTRY CONSULTANT Subject: Medication Management Due: September 16, 2024 11:31:38 AM PRODUCT/INDUSTRY CONSULTANT Originally Prescribed Drug: Drug: levothyroxine (levothyroxine 125 mcg (0.125 mg) oral tablet), TAKE 1 TABLET BY MOUTH EVERY DAY Quantity: 30 tab(s) Days Supply: 30 Refills: 0 Substitutions Allowed Notes from Pharmacy: REQUEST FOR 90 DAYS PRESCRIPTION. On Hold Pending Signature Preferred Alternative Drug: levothyroxine (levothyroxine 125 mcg (0.125 mg) oral tablet), TAKE 1 TABLET BY MOUTH EVERY DAY Quantity: 90 tab(s) Days Supply: 90 Refills: 1 Substitutions Allowed Notes from Pharmacy: REQUEST FOR 90 DAYS PRESCRIPTION. [facility] 07-28-2024 History of Presen t illness Narrative Song Pulmonary And Sleep Progress Note Patient - Jazzmine Patel Age - 73 y.o. - 1950 [id number] ASSESSMENT Stage I left lingular adenocarcinoma s/p [...] received equipment and due to need for iezt-yt-zlab apparently in additional documentation from the DME. [...] with patient history. Dr. Eileen Fonseca DO. [facility] Office: [phone] documented in this encounter [facility] 04-18-2024 Note XR CHEST 1 VW Procedure: Chest x-ray performed Number of views:AP portable History:Shortness of breath and cough Comparison:02/01/2024 Findings: The heart and lungs show no acute findings, and the mediastinum and sylwia are grossly negative . There is a left shoulder replacement Impression: No acute change. Finalized by Sanaz Burns DO on 04/18/2024 1:42 PM [facility] 03-14-2024 Note Entered by MATILDA BROCK DO on March 14, 2024 07:37:29 EDT From: MIGUEL BROCK DO To: [facility]/pharmacy #[id number] Sent: 03/14/2024 07:37:29 EDT Subject: Medication Management Documented Complete:fluticasone nasal (fluticasone 50 mcg/inh nasal spray) Signed by MIGUEL BROCK DO 03/14/2024 07:37:00 EDT Approved fluticasone nasal (FLUTICASONE PROP 50 MCG SPRAY) SPRAY 1 SPRAY INTO EACH NOSTRIL EVERY DAY Qty: 32 mL Days Supply: 120 Refills: 4 Substitutions Allowed Route To Pharmacy - [facility]/pharmacy #[id number] Patient matched by MIGUEL BROCK DO on 03/14/2024 07:37:12 EDT From: [id number] To: MIGUEL BROCK DO Sent: March 12, 2024 6:55:34 AM CDT Subject: Medication Management Due: March 13, 2024 12:03:07 AM CDT On Hold Pending Signature Dispensed Drug: fluticasone nasal (fluticasone 50 mcg/inh nasal spray), SPRAY 1 SPRAY INTO EACH NOSTRIL EVERY DAY Quantity: 32 mL Days Supply: 120 Refills: 4 Substitutions Allowed Notes from Pharmacy: [facility] 01-11-2024 Note Entered by MATILDA BROCK DO on January 11, 2024 07:47:51 EDT From: MIGUEL BROCK DO To: [facility]/pharmacy #[id number] Sent: 01/11/2024 07:47:51 EDT Subject: Medication Management Approved Durable Medical Equipment for Prescription (ONE TOUCH ULTRA BLUE TEST STRP) TEST TWICE DAILY Qty: 100 Strip Days Supply: 30 Refills: 4 Substitutions Allowed Route To Pharmacy - [facility] #[id number] From: [id number] To: MIGUEL BROCK DO Sent: January 10, 2024 11:22:06 PM CDT Subject: Medication Management Due: January 11, 2024 12:31:07 AM CDT On Hold Pending Signature Dispensed Drug: ONE TOUCH ULTRA BLUE TEST STRP, TEST TWICE DAILY Quantity: 100 Strip Days Supply: 30 Refills: 4 Substitutions Allowed Notes from Pharmacy: [facility] 01-07-2024 History of Presen t illness Narrative SENT CARDIAC CLEARANCE LETTER TO DR Servando ELLIS FOR UPCOMING BRONCHOSCOPY WITH BAL UNDER GENERAL ANESTHESIA documented in this encounter [facility] [employer] [facility] 01-07-2024 History of Presen t illness Narrative Images from the original note were not included. [facility] Pulmonary And Sleep Progress Note Patient - Jazzmine Patel Age - 73 y.o. - 1950 [facility] [id number] ASSESSMENT 1. Moderately severe COPD with emphysema [...] No new lung nodules. * Emphysema. Dr. Elieen Fonseca DO. [facility] Office: [phone] documented [facility] this encounter [facility]23 Miscellaneous Notes PATIENT RETURNED CALL. NOT SURE WHO CALLED PATIENT. PLEASE CALL HER BACK AT [phone] documented [facility] this encounter [facility] 12-31-2023 Telephone encounter Note PATIENT RETURNED CALL. NOT SURE WHO CALLED PATIENT. PLEASE CALL HER BACK AT [phone] [facility] 12-31-2023 Miscellaneous Notes She has abnormal imaging from 12/03 and has been scheduled and not shown it looks like twice? Can we reach out to her and see if she can come in and notify PCP of imaging and efforts please just so he is up to date? Thank you documented in this encounter [facility] 12-31-2023 Telephone encounter Note She has abnormal imaging from 12/03 and has been scheduled and not shown it looks like twice? Can we reach out to her and see if she can come in and notify PCP of imaging and efforts please just so he is up to date? Thank you [facility] 12-07-2023 Miscellaneous Notes ----- Message from Eileen Fonseca DO sent at 12/07/2023 10:35 AM EST ----- Can she come in on at 3:45? Rpg Programmer Analyst spoke with patient and informed her that SE would like to see her on 12/24/2023 at 3:45pm if patient is available. Patient stated that she is able to come into the office on 12/24/2023 at 3:45pm. Appointment moved to 12/24/2023. documented in this encounter [facility] 12-07-2023 Telephone encounter Note ----- Message from Eileen Fonseca DO sent at 12/07/2023 10:35 AM EST ----- Can she come in on at 3:45? [facility] 12-07-2023 Telephone encounter Note Rpg Programmer Analyst spoke with patient and informed her that SE would like to see her on 12/24/2023 at 3:45pm if patient is available. Patient stated that she is able to come into the office on 12/24/2023 at 3:45pm. Appointment moved to 12/24/2023. [facility] 10-21-2023 Miscellaneous Notes Pt called again on [...] up. Pt agreeable. documented in this encounter [facility] 10-21-2023 Telephone encounter Note Pt called again on SE nurse line stating she needs a return phone call JAMEEL. Returned pt's call and informed her once SE is back and reviews everything/ lets us know where we can add her, we will call her. Pt is aware + agreeable. [facility] 10-21-2023 Telephone encounter Note Pt returned call. Pt agreeable to schedule CT chest - number to central scheduling provided. Advised pt once CT is scheduled to call office for follow up. Pt agreeable. [facility] 02-13-2021 Hospital Discharg e instructions Riley [...] at most local grocery stores, pharmacies, and [employer]stores. If you have any questions about your diet or nutrition, call the hospital and ask for the dietitian. Cardiac diet low in fat and sodium Riley Solis APRN - CNP - 02/13/2021 7:50 AM EDT Follow-up in [place] office in 7 to 10 days for cath site evaluation and continued monitoring. The following attachments cannot be sent through Care Everywhere.PCI (Percutaneous Coronary Intervention): Post-op (Tuvaluan)PCI (Percutaneous Coronary Intervention): General Info (Tuvaluan)atorvastatin (Tuvaluan)clopidogrel (Tuvaluan)documented in this encounter [employer] Phone: 02-12-2021 History of Presen t illness Narrative Patient admitted to room 1011 from PACU. VS taken, telemetry placed and call light given/within reach. Patient A&O and given room orientation. Orders released/reviewed, initial assessment completed and navigator started. See chart for more detail. 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, left ([facility]) documented in this encounter [employer] System[employer] note* Diagnosis Severe claudication ([facility])- Primary PVD (peripheral vascular disease) ([facility]) Unspecified peripheral vascular disease Bilateral carotid bruits PVD (peripheral vascular disease) ([facility])- Primary Unspecified peripheral vascular disease Severe claudication ([facility]) Bilateral carotid artery stenosis Occlusion and stenosis of carotid artery without mention of cerebral infarction Cigarette smoker Tobacco use disorder Chest pain, unspecified type- Primary documented in this encounter [employer] System[employer] note* Diagnosis Severe claudication ([facility])- Primary PVD (peripheral vascular disease) ([facility]) Unspecified peripheral vascular disease Bilateral carotid bruits PVD (peripheral vascular disease) ([facility])- Primary Unspecified peripheral vascular disease Severe claudication ([facility]) Bilateral carotid artery stenosis Occlusion and stenosis of carotid artery without mention of cerebral infarction Cigarette smoker Tobacco use disorder Pneumonia of left lower lobe due to infectious organism- Primary documented in this encounter [facility]ructions[facility] [...] [facility] Author Urszula Etienne [facility] March 15, 2024 11:42am Note Date/Time March 15, 2024 9:58a m [facility] [place] [address] Cancer Center Note Signed Patient: Jazzmine Patel MR#: [id number] : 1950 Acct:[id number] Age/Sex: 73 / F Type: DEP AMB [...] today having undergone a screening EBUS in [place] on March 01, 2024. A single abnormal [...] to clinic today having undergone EBUS in [place]. EBUS was completedon March 01, 2024 copious [...] the order needed to be faxed to [place]. Today she reports worsening shortness of breath [...] a 3 week follow up visit before [facility] Medical History Medical History Bronchiolo-alveolar adenocarcinoma of [...] <Electronically signed by Urszula Etienne MD> 03/15/24 1146 [facility] Work Phone: Reason for Referral Status Reason Specialty Diagnoses / Procedures Referred By Contact Referred To Contact Open Specialty Services Required Cardiac Rehabilitation Diagnoses [facility]normal 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 anation Durable Power of Call Center Consultant Date Activated Date Inactivated Comments 04/25/2024 11:30 AM 04/27/2024 3:46 PM Date Activated Date Inactivated Comments 08/09/2020 3:44 PM 08/10/2020 7:03 PM Date Activated Date Inactivated Comments 09/12/2018 5:17 AM 09/16/2018 7:33 PM Documents on File Type Date Recorded Patient Supervisor Instrument Mechanics Expl anation ACP-Advance Directive ACP-Power of Call Center Consultant Latest Code Status on File Code Status [...] Documents on File Type Date Recorded 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 Supervisor 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 Mechanics Expl anation Durable Power of Call Center Consultant Latest Code Status on File Code Status Date Activated Date Inactivated Comments Full Code 08/09/2020 3:44 PM 08/10/2020 7:03 PM Code Status History Code Status Date Activated Date Inactivated Comments Full Code 09/12/2018 5:17 AM 09/16/2018 7:33 PM Advance Directive Response Recorded Date/ Time Advance Directives No March 15 5:26pm Summary Purpose Family History No Family [...] Referre d By Contact Referred To Contact Joseline Tassel 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 [address] [place] [address] [facility] Reason Comments Follow-up Jenhj-6-xzppjvcudbm deficiencyPulmonary NoduleCT: 12/02/2023Lower Respiratory Culture: 06/12/2023 Reason Comments COPD Home O2 Evaluation: 07/15/2024 Follow-up Reason Comments Med Refill Reason Onset Date Comments CRITICAL LAB 09/27/2024 Ordered Prescriptions (unrec ognized section and content) [...] section and content) DATE CREATED AUTHOR [facility] DATE CREATED AUTHOR AUTHOR'S ORGANIZ ATION 03/03/2023 [facility] DATE CREATED AUTHOR AUTHOR'S ORGANIZ ATION 07/15/2024 [facility] DATE CREATED AUTHOR AUTHOR'S ORGANIZ ATION 07/30/2024 [facility] DATE CREATED AUTHOR AUTHOR'S ORGANIZ ATION 09/18/2024 [facility] DATE CREATED AUTHOR AUTHOR'S ORGANIZ ATION 09/29/2024 [facility] DATE CREATED AUTHOR AUTHOR'S ORGANIZ ATION 10/09/2024 [facility] Care Teams (unrecognized sec tion and content) Team Status: Active Member Role Status Dates Miguel Brock DO Primary Care Provider Active Team Status: Active Member Role Status Dates Miguel Brock DO Primary Care Provider Active Start: April 19, 2024 Urszula Etienne MD Attending [facility] er, Other Provider Active Start: April 19, [...] Provider Active St art: July 12, 2024 Securities Teller Relationship Specialty Start Date End Date Miguel Brock DO [address] [place] [address] PCP - General 10/17/16 Securities Teller Relationship Specialty Start Date End Date Miguel Brock DO [address] [place] [address] PCP - General 10/17/16 Securities Teller Relationship Specialty Start Date End Date Miguel Brock DO [address] [place] [address] PCP - General 10/17/16 Securities Teller Relationship Specialty Start Date End Date Miguel Brock DO [address] [place] [address] PCP - General Family Medicine 01/25/24 Team [...] March 15, 2024 Urszula Etienne MD Attending [facility] er, Other Provider Active Start: March 15, [...] April 04, 2024 Urszula Etienne MD Attending [facility] er, Other Provider Active Start: April 04, 2024 Anisha Wolf MD Referring Provider Active St art: April 04, 2024 Team Status: Active Member Role Status Dates Miguel Brock DO Primary Care Provider Active Start: April 12, 2024 Urszula Etienne MD Attending [facility] er, Other Provider Active Start: April 12, 2024 Anisha Wolf MD Referring Provider Active St art: April 12, 2024 Team Status: Active Member Role Status Dates Miguel Brock DO Primary Care Provider Active Start: May 17, 2024 Urszula Etienne MD Attending Provider Active Start: May 17, 2024 Anisha Wolf MD Referring Provider Active St art: May 17, 2024 Securities Teller Relationship Specialty Start Date End Date Miguel Brock DO [address] [place] [address] PCP - General Family Medicine 04/25/24 Securities Teller Relationship Specialty Start Date End Date Miguel Brock DO [address] [place] [address] PCP - General Family Medicine 04/25/24 Securities Teller Relationship Specialty Start Date End Date Miguel Brock DO [address] [place] [address] PCP - General Family Medicine 08/17/24 Securities Teller Relationship Specialty Start Date End Date Miguel Brock DO [address] [place] [address] PCP - General Family Medicine 08/17/24 Securities Teller Relationship Specialty Start Date End Date Miguel Brock DO [address] [place] [address] PCP - General Family Medicine 08/17/24 Goals (unrecognized section and content) Goals may [...] BE BASED ON THE PRIMARY CLINICAL RECORDS. [employer] [facility]. provides no warranty or guarantee of the accuracy or completeness of information in this document.
== END 2024-10-12 08:19 | disposition home or self-care (01) ==
LOC: HEMC 07:33
PROVIDERS: PCP Family Medicine; Visit Provider Internal Medicine Hematology & Oncology
DX: C34.92 Malignant neoplasm of unspecified part of left bronchus or lung (principal); F17.210 Nicotine dependence, cigarettes, uncomplicated; J43.9 Emphysema, unspecified; R06.02 Shortness of breath; R05.3 Chronic cough
CPT/HCPCS: G0463

== ENCOUNTER 2024-12-22 09:26 | Outpatient (OUT) | payer MEDICARE, SELFPAY ==
[2024-12-22 09:54] LABS: Basophils Absolute Auto 0.1 10^3/uL (0.0-0.1); Basophils Percent Auto 1.5 % (0.2-2.0); Eosinophils Absolute Auto 0.2 10^3/uL (0.0-0.7); Hematocrit 46.2 % (36.0-48.0); Hemoglobin 15.1 g/dL (12.0-16.0); Immature Granulocytes Abs Auto 0.03 10^3/uL (0.00-0.03); Immature Granulocytes Pct Auto 0.5 % (0.0-0.5); Lymphocytes Absolute Auto 1.5 10^3/uL (1.2-3.8); Lymphocytes Percent Auto 22.8 % (20.5-60.0); Mean Corpuscular HGB Conc 32.7 g/dL (29.9-35.2); Mean Corpuscular Hemoglobin 30.4 pg (26.7-34.0); Mean Platelet Volume 9.7 fL (9.5-13.5); Monocytes Absolute Auto 0.4 10^3/uL (0.3-0.8); Monocytes Percent Auto 6.2 % (1.7-12.0); Neutrophils Absolute Auto 4.4 10^3/uL (1.4-6.5); Platelet Count 233 10^3/uL (150-450); Red Blood Count 4.97 10^6/uL (4.20-5.40); Red Cell Distribution Width 14.3 % (11.0-15.0); White Blood Count 6.7 10^3/uL (4.0-11.0)
[2024-12-22 10:03] LABS: Alanine Aminotransferase 12 U/L (14-59); Albumin Level 3.2 g/dL (3.4-5.0); Alkaline Phosphatase 78 U/L (46-116); Anion Gap 12.1; Aspartate Amino Transferase 25 U/L (15-37); BUN Creatinine Ratio 16.2; Bilirubin Total 0.5 mg/dL (0.2-1.0); Calcium 7.4 mg/dL (8.5-10.1); Carbon Dioxide 31.1 mmol/L (21.0-32.0); Chloride 101 mmol/L (98-107); Estimated GFR (African America >60 (>=60 mL/min/1.73m^2); Estimated GFR (Non-African Ame 52 (>=60 mL/min/1.73m^2); Globulin 3.8 g/dL; Glucose 167 mg/dL (74-106); Potassium 4.2 mmol/L (3.5-5.1); Sodium 140 mmol/L (136-145)
[2024-12-22 10:04] LABS: Albumin Globulin Ratio 0.8
[2024-12-23 08:08] LABS: Vitamin B12 262 pg/mL (232-1245)
== END 2024-12-22 09:27 | disposition home or self-care (01) ==
LOC: LAB 09:26
PROVIDERS: PCP Family Medicine; Visit Provider Internal Medicine Hematology & Oncology
DX: C34.92 Malignant neoplasm of unspecified part of left bronchus or lung (principal)
CPT/HCPCS: 36415; 80053; 82607; 82728; 83540; 83550; 85025

== ENCOUNTER 2025-01-17 07:36 | Outpatient (RCR) | payer MEDICARE, SELFPAY ==
--- OUTSIDE RECORDS SUMMARY | 2025-01-17 07:42 | XMS_ITS | CCD ---
Author Organization [facility] Care Team Providers Care Photographer'S Assistant Name Role Phone House DO, Sr Miguel Vargas Primary Care Provider [phone] WILLIE PARRA Admitting Unavailable WILLIE PARRA Attending Unavailable WILLIE PARRA Referring Unavailable HOUSE, SR MIGUEL Vargas Primary Care Unavailable HOUSE, DR BLISS Admitting Unavailable HOUSE, DR BLISS Attending Unavailable HOUSE, DR BLISS Primary Care Unavailable HOUSE, DR BLISS Admitting Unavailable HOUSE, DR BLISS Attending Unavailable HOUSE, DR BLISS Consulting Unavailable HOUSE, DR BLISS Primary Care Unavailable House, DO Miguel Primary Care Provider MD Urszula Etienne Attending Provider MD Anisha Wolf Referring Provider DO Miguel Brock Primary Care Provider MD Urszula Etienne Attending Provider MD Anisha Wolf Referring Provider DO Miguel Brock Primary Care Provider MD Urszula Etienne Attending Provider MD Anisha Wolf Referring Provider [phone] Miguel Brcok DO Primary Care Provider DO MIGUEL BROCK Attending Unavailable HOUSE, MIGUEL Vargas Primary Care Unavailable HOUSE, MIGUEL Vargas Primary Care Unavailable HOUSE, MIGUEL Vargas Primary Care Unavailable Renzo Gilliland MD Attending Unavailable HOUSE, MIGUEL Vargas Primary Care Unavailable Renzo Gilliland MD Attending Unavailable HOUSE, MIGUEL Vargas Primary Care Unavailable HOUSE, DO MIGUEL P Admitting Unavailable HOUSE, DO MIGUEL P Attending Unavailable House DO, Miguel P Primary Care Provider House DO, Miguel P Primary Care Provider House DO, Miguel P Primary Care Provider House DO, Miguel P Primary Care Provider EILEEN FONSECA Referring Unavailable HOUSE, MIGUEL P Primary Care Unavailable HOUSE, MIGUEL P Primary Care Unavailable FATEMEH ALAMO Attending Unavailable FATEMEH ALAMO Attending Unavailable KASHIFENCIAFATEMEH Lopez Referring Unavailable HOUSE, MIGUEL P Primary Care Unavailable RAYMUNDOEILEEN M Referring Unavailable HOUSE, MIGUEL P Primary Care Unavailable BRENNON, ANISHA Referring Unavailable HOUSE, MIGUEL P Primary Care Unavailable HOUSE, MIGUEL P Referring Unavailable HOUSE, MIGUEL P Primary Care Unavailable HOUSE, MIGUEL P Referring Unavailable HOUSE, MIGUEL P Primary Care Unavailable RAYMUNDOEILEEN FERNANDEZ M Referring Unavailable HOUSE, MIGUEL P Primary Care Unavailable HOUSE, MIGUEL P Primary Care Unavailable BREANNE ANNE Attending Unavailable MONICA MANUEL Attending Unavailable MONICA MANUEL Referring Unavailable HOUSE, MIGUEL P Primary Care Unavailable RAYMUNDOEILEEN M Attending Unavailable RAYMUNDOEILEEN M Referring Unavailable HOUSE, MIGUEL P Primary Care Unavailable EILEEN FONSECA Attending Unavailable EILEEN FONSECA M Referring Unavailable HOUSE, MIGUEL P Primary Care Unavailable HOUSE, MIGUEL P Primary Care Unavailable SYL AMARO Attending Unavailable BETO BLACKWOOD Admitting Unavailable [facility]OLOG[facility] Consulting Unavailable SYL AMARO Attending Unavailable SYL AMARO Referring Unavailable HOUSE, MIGUEL P Primary Care Unavailable HOUSE, MIGUEL P Primary Care Unavailable MARCO DOHERTY Attending Unavailable RAYMUNDOEILEEN M Attending Unavailable RAYMUNDOMIANA M Referring Unavailable HOUSE, MIGUEL P Primary Care Unavailable RAYMUNDOEILEEN M Referring Unavailable HOUSE, MIGUEL P Primary Care Unavailable HOUSE, MIGUEL P Primary Care Unavailable GOMBASH SHOSHANA, MIO Attending Unavailab LILIANA Victor Admitting Unavailable GOMBASH SHOSHANA, MIO Attending Unavailab le GOMBASH SHOSHANA, MIO Referring Unavailab le HOUSE, MIGUEL P Primary Care Unavailable GOMBASH SHOSHANA, MIO Attending Unavailab le GOMBASH SHOSHANA, MIO Referring Unavailab le HOUSE, MIGUEL P Primary Care Unavailable RAYMUNDO, [...] Unavailable HOUSE, MIGUEL P Primary Care Unavailable Urszula Etienne Attending Unavailable Urszula Etienne Admitting Unavailable House, Miguel Primary Care Unavailable Anisha Wolf Referring Unavailable House Miguel NIÑO Primary Care Provider Adán Conner MD Attending Provider [phone] Urszula Etienne MD Attending Provider Anisha Wolf MD Referring Provider EILEEN FONSECA M Admitting Unavailable RAYMUNDOMIANA M Attending Unavailable HOUSE, MIGUEL P Primary Care Unavailable RAYMUNDOMIANA M Attending Unavailable RAYMUNDO, EILEEN M Referring Unavailable HOUSE, MIGUEL P Primary Care Unavailable FELIX BURNS Attending Unavailable HOUSE, MIGUEL P Primary Care Unavailable RAYMUNDO, EILEEN M Admitting Unavailable RAYMUNDO, EILEEN M Attending Unavailable HOUSE, [...] P Primary Care Unavailable RAYMUNDO, EILEEN M Admitting Unavailable RAYMUNDO, EILEEN M Attending Unavailable HOUSE, MIGUEL P Primary Care Unavailable Allergies Allergy Classification Reported Allergen(s) Allergy Type Date of Onset Reaction(s) Facility (2 sources) Sulfamethoxazole / Trimethoprim; Translations: [Bactrim] Drug Allergy [facility] Rep[facility] (20 sources) Sulfamethoxazole / Trimethoprim; Translations: [SULFAMETHOXAZOLE-TR IMETHOPRIM] Drug Allergy [facility] Medications Current Medications Medication Drug Class(es) [...] 0 02/13/2021 Discontinued (Stop Taking at Discharge) acetaminophen 325 mg / oxyCODONE hydrochloride 5 mg oral tablet (11 sources) Opioid Agonist Start: 11-02-2024 take 1 tablet by mouth every eight hours as needed for pain oxyCODONE-acetaminophen (PERCOCET) 5-325 mg per tablet Instructions: TAKE 1 TABLET BY MOUTH EVERY 8 HOURS NEEDED FOR PAIN FOR UP TO 3 DAYS 11/02/2024 Active Start: 10-24-2024 End: 10-27-2024 oxyCODONE-acetaminophen (PER COCET) 5-325 mg per tablet Indications: Severe claudication ([facility]) , Age-related osteoporosis with current pathological fracture, left humerus, initial encounter for fracture , Chronic pain syndrome Take 1 tablet by mouth every 8 (eight) hours as needed for pain for up to 3 days. Max Daily Amount: 3 tablets 9 tablet 10/24/2024 10/27/2024 Active [id number] 200 actuat albuterol 0.09 mg/actuat metered dose inhaler (20 sources) beta2-Adrenergic Agonist Start: 04-27-2024 take 2 puff(s) by inhalation every four hours as needed for wheezing albuterol (PROVENTIL HFA;VENTOLIN HFA) 90 mcg/actuation inhaler Indications: Moderate COPD (chronic obstructive pulmonary disease) ([facility]) Inhale 2 puffs every 4 (four) hours as needed for wheezing. 6.7 g 11 04/27/2024 Active Start: 10-09-2023 take 2 puff(s) by mo uth every four hours as needed albuterol (PROVENTIL HFA;VENTOLIN HFA) 90 mcg/actuation inhaler Indications: Moderate COPD (chronic obstructive pulmonary disease) ([facility]) TAKE 2 PUFFS BY MOUTH EVERY 4 HOURS NEEDED FOR WHEEZE 6.7 g 11 08/03/2023 Active Start: 05-11-2023 End: 05-05-2024 albuterol (PROVENTIL,VENTOLI N) 2.5 mg /3 mL (0.083 %) nebulizer solution 3 mL (2.5 mg total). 08/07/2023 Active Start: 10-09-2020 take 2 puff(s) by [...] mg by inhal ation every four hours as needed for wheezing Albuterol Sulfate 1.25 mg/3 mL Solution For Nebulization Active 2.5 MG INHALATION Q4H as needed for Shortness Of Breath Or Wheezing January 12, 2019 12:00am take 2 puff(s) by in halation every six hours as needed for wheezing albuterol sulfate HFA 108 (90 BASE) MCG/ACT inhaler Inhale 2 puffs into the lungs every 6 hours as needed for Wheezing 0 Active apixaban 5 mg oral tablet (20 sources) Factor Xa Inhibitor Start: 01-12-2019 End: 02-13-2021 take 1 tablet by mouth twice daily ELIQUIS 5 mg tablet Indications: Paroxysmal atrial fibrillation ([facility]) TAKE 1 TABLET BY MOUTH TWICE DAILY 60 tablet 10 05/06/2022 Active aspirin 81 mg chewable tablet (20 sources) [...] 02/13/2021 Active azithromycin 250 mg oral tablet (8 sources) Macrolide Antimicrobial Start: 09-27-2024 End: 10-01-2024 azithromycin (ZITHROMAX) 250 mg tablet Take 2 by mouth today then 1 daily for 4 days 6 tablet 09/27/2024 10/01/2024 Active Start: 03-09-2024 End: 04-06-2024 take 1 tablet by mouth once daily azithromycin (ZITHROMAX) 250 mg tablet Take 1 tablet PO daily Thursday, Thursday and Thursday 12 tablet 11 03/09/2024 04/06/2024 Active 120 actuat budesonide 0.16 mg/actuat / formoterol fumarate 0.0048 mg/actuat / glycopyrrolate 0.009 mg/actuat metered dose inhaler (20 sources) Corticosteroid, beta2-Adrenergic Agonist Start: 11-03-2024 End: 11-03-2024 take 2 puff(s) by inhalation at bedtime ggrtwiofbq-lcsixxbi-jopygbjtis (BREZTRI AEROSPHERE) 160-9-4.8 mcg/actuation HFA aerosol inhaler Indications: Bronchiectasis without complication ([facility]) Inhale 2 puffs in the morning and at bedtime. 10.7 g 11 11/03/2024 Active End: 11-03-2024 take 2 puff(s) by inhalation at bedtime ltibnmvukv-yzocnfxn-iuzaelwhml (BREZTRI AEROSPHERE) 160-9-4.8 mcg/actuation HFA aerosol inhaler Inhale 2 puffs in the morning and at bedtime. 11/03/2024 Discontinued (Reorder) calcium carbonate 1250 mg / cholecalciferol 200 unt oral tablet (20 sources) Vitamin D Start: 03-26-2022 take 2 [...] 0 Active cefdinir 300 mg oral capsule (5 sources) Cephalosporin Antibacterial Start: 01-03-2025 End: 01-17-2025 take 1 capsule by mouth in the morning, then take 1 capsule by mouth at bedtime cefDINIR (OMNICEF) 300 mg capsule Take 1 capsule (300 mg total) by mouth in the morning and 1 capsule (300 mg total) before bedtime. Do all this for 14 days. 28 capsule 01/03/2025 01/17/2025 Active Start: 09-27-2024 End: 10-07-2024 take 1 capsule by mouth in the morning, then take 1 capsule by mouth at bedtime cefDINIR (OMNICEF) 300 mg capsule Take 1 capsule (300 mg total) by mouth in the morning and 1 capsule (300 mg total) before bedtime. Do all this for 10 days. 20 capsule 09/27/2024 10/07/2024 Active Start: 02-02-2024 End: 02-12-2024 take 1 capsule by mouth in the morning, then take 1 capsule by mouth at bedtime cefDINIR (OMNICEF) 300 mg capsule Take 1 capsule (300 mg total) by mouth in the morning and 1 capsule (300 mg total) before bedtime. Do all this for 10 days. 20 capsule 02/02/2024 02/12/2024 Active cephalexin 250 mg oral capsule (1 source) Cephalosporin Antibacterial Start: 10-24-2024 End: 10-28-2024 take 1 capsule by mouth in the morning, then take 1 capsule by mouth at bedtime CEPHalexin (KEFLEX) 250 mg capsule Take 1 capsule (250 mg total) by mouth in the morning and 1 capsule (250 mg total) before bedtime. Do all this for 4 days. 8 capsule 10/24/2024 10/28/2024 Active cholecalciferol 1.25 mg oral capsule (9 sources) Vitamin D Start: 10-29-2024 End: 11-20-2024 take 1 capsule by mouth every week cholecalciferol (VITAMIN D3) 50,000 units capsule Take 1 capsule (50,000 Units total) by mouth once a week for 4 doses. 4 capsule 10/29/2024 11/20/2024 Active clopidogrel 75 mg oral tablet (2 sources) [id number] Platelet Inhibitor Start: 02-13-2021 take 1 tablet by mouth once daily clopidogrel (PLAVIX) 75 MG tablet Take 1 tablet by mouth daily 30 tablet 3 02/13/2021 Active Start: 02-13-2021 clopidogrel (P LAVIX) tablet 75 mg colloidal oatmeaL (AVEENO SOOTHING BATH) packet (20 sources) Start: 12-16-2021 colloidal oatm eaL (AVEENO SOOTHING BATH) packet Apply 1 application topically daily. 8 packet 12/16/2021 Active Start: 12-16-2021 colloidal oatm eaL (AVEENO SOOTHING BATH) packet Apply 1 application topically daily. 8 packet 0 12/16/2021 Active 24 hr dilTIAZem hydrochloride 180 mg extended release oral capsule (20 sources) Calcium Channel Nataly Start: 04-28-2024 take 1 capsule by mouth every twenty-four hours in the morning dilTIAZem CD (CARDIZEM CD) 180 mg 24 hr capsule Take 1 capsule (180 mg total) by mouth in the morning. 30 capsule 04/28/2024 Active Start: 04-18-2019 take 1 capsule by mo [facility] once daily Diltiazem Hcl 120 mg capsule,ext.rel 24h degradable Active 120 MG PO Daily April 18, 2019 12:00am doxycycline hyclate 100 mg oral capsule (20 sources) Tetracycline-class Drug Start: 11-03-2024 End: 12-02-2025 take 1 capsule by mouth once doxycycline (VIBRAMYCIN) 100 mg capsule Indications: Bronchiectasis without complication (CMS-HCC) Take 1 capsule PO daily every Thursday,and Thursday 12 capsule 12 12/02/2024 12/02/2025 Active Start: 10-24-2024 End: 11-27-2024 take 1 tablet by mouth twice daily, then take 1 tablet by mouth three times weekly doxycycline (DORYX) 100 MG EC tablet Take 1 tablet (100 mg total) by mouth 2 (two) times a day for 4 days, THEN 1 tablet (100 mg total) 3 (three) times a week for 30 days. M W F. 10/24/2024 11/03/2024 Discontinued Start: 05-06-2024 End: 08-04-2024 take 1 capsule by mouth three times weekly doxycycline (VIBRAMYCIN) 100 mg capsule Indications: Moderate COPD (chronic obstructive pulmonary disease) (CMS-HCC) , Bronchiectasis without complication (CMS-HCC) Take 1 capsule (100 mg total) by mouth 3 (three) times a week for 90 days. 36 capsule 3 05/06/2024 08/04/2024 Active Start: 01-28-2024 End: 02-15-2024 take 1 capsule by mouth in the morning, then take 1 capsule by mouth at bedtime doxycycline (VIBRAMYCIN) 100 mg capsule Take 1 capsule (100 mg total) by mouth in the morning and 1 capsule (100 mg total) before bedtime. Do all this for 14 days. 28 capsule 02/01/2024 02/15/2024 Active Start: 10-19-2023 End: 10-29-2023 take 1 capsule by mouth in the morning, then take 1 capsule by mouth at bedtime doxycycline (VIBRAMYCIN) 100 mg capsule Take 1 capsule (100 mg total) by mouth in the morning and 1 capsule (100 mg total) before bedtime. Do all this for 10 days. 20 capsule 0 10/19/2023 10/29/2023 Active ezetimibe 10 mg oral tablet (20 sources) Dietary Cholesterol Absorption Inhibitor Start: 12-02-2022 take 1 tablet by mouth once daily ezetimibe (ZETIA) 10 mg tablet Indications: hyperlipidemia Take 1 tablet (10 mg total) by mouth nightly Indications: excessive fat in the blood. 12/02/2022 Active fluticasone propionate 0.05 mg/actuat metered dose nasal spray (13 sources) Corticosteroid Start: 03-03-2023 take 1 spray(s) nasal route once daily fluticasone propionate (FLONASE) 50 mcg/actuation nasal spray Indications: Acute sinusitis, recurrence not specified, unspecified location SPRAY 1 SPRAY INTO EACH NOSTRIL EVERY DAY 32 mL 4 03/03/2023 Active FLUTICASONE-UMECLID IN-VILANT IN (1 source) take 1 puff(s) by inhalation once daily FLUTICASONE-UMECLI DIN-VILANT IN Inhale 1 puff into the lungs daily 0 Active 12 hr guaiFENesin 600 mg extended release oral tablet (20 sources) Start: 05-05-2024 guaiFENesin (MUCINEX) 600 mg tablet extended release 12hr Indications: Moderate COPD (chronic obstructive pulmonary disease) ([facility]) , Bronchiectasis without complication ([facility]) Take 2 tablets (1,200 mg total) by mouth every 12 (twelve) hours. 120 tablet 6 05/05/2024 Active hydrocortisone 25 mg/ml topical cream (10 sources) Corticosteroid Start: 08-29-2024 hydrocortisone (HYTONE) 2.5 % cream Apply 1 Application topically 2 (two) times a day as needed. 08/29/2024 Active 3 ml insulin glargine 100 unt/ml pen injector (20 sources) Insulin Analog Start: 08-10-2023 inject 100 [IU] by subcutaneous injection in [...] insulin pen 16 Units in the morning. 12/13/2017 Active inject 0.16 mL by christine bcutaneous injection once daily insulin glargine (LANTUS) 100 unit/mL injection Inject 0.16 mL (16 Units total) under the skin Daily at 0700. Active insulin glargine (LANTUS) 100 UNIT/ML injection vial Inject 16 Units into the skin nightly 0 Active 24 hr isosorbide mononitrate 30 mg extended release oral tablet (20 sources) Nitrate Vasodilator Start: 08-28-2022 take 1 [...] Discharge) ammonium lactate 120 mg/ml topical lotion (13 sources) Start: 12-16-2021 ammonium lactate (LAC-HYDRIN) 12 % lotion Apply 1 application topically as needed for dry skin. 400 g 12/16/2021 Active levoFLOXacin 500 mg oral tablet (6 sources) Quinolone Antimicrobial Start: 12-29-2024 End: 01-08-2025 take 1 tablet by mouth in the morning levoFLOXacin (LEVAQUIN) 500 mg tablet Take 1 tablet (500 mg total) by mouth in the morning for 10 days. 10 tablet 12/29/2024 01/03/2025 Discontinued Start: 03-01-2024 End: 03-11-2024 take 1 tablet by mouth in the morning levoFLOXacin (LEVAQUIN) 500 mg tablet Take 1 tablet (500 mg total) by mouth in the morning for 10 days. 10 tablet 03/01/2024 03/11/2024 Active levothyroxine sodium 0.125 mg oral tablet (20 sources) l-Thyroxine Start: 12-03-2022 take 1 tablet by mouth in the morning levothyroxine (SYNTHROID) 125 MCG tablet Indications: Postoperative hypothyroidism Take 1 tablet (125 mcg total) by mouth in the morning. 30 tablet 1 12/03/2022 Active Start: 02-07-2021 take 1 tablet by denea th once daily levothyroxine (SYNTHROID) 100 MCG tablet Take 100 mcg by mouth daily 0 02/07/2021 Active lidocaine 0.05 mg/mg rectal gel (14 sources) Antiarrhythmic, Amide Local Anesthetic Start: 11-02-2024 apply 1 dose transdermal route once as needed lidocaine 5 % gel Apply 1 patch topically every 12 (twelve) hours as needed. 11/02/2024 Active Start: 05-17-2024 End: 10-25-2024 apply 1 dose topically once daily Lidocaine 5 % adhesive patch,medicated Active 2 PATCH TOPICAL Daily October 25, 2024 8:33am leave on most painful area for up [...] AREA THREE TIMES A DAY 22 g 08/03/2023 Active Start: 01-15-2023 mupirocin (SREEDHAR TROBAN) 2 % ointment Indications: Erysipelas Apply 1 Application topically in the morning and 1 Application before bedtime. Apply to affected area t.i.d.. 22 g 0 01/15/2023 Active Start: 01-07-2022 mupirocin (SREEDHAR TROBAN) 2 % ointment Indications: Nasal vestibulitis Applied intranasally bilaterally 2 times daily 15 g 01/07/2022 Active nicotine 4 mg inhalation solution (13 sources) Cholinergic Nicotinic Agonist Start: 05-22-2021 nicotine (NICOTROL) 10 mg inhaler Indications: Tobacco abuse , Personal history of nicotine dependence , Cigarette nicotine dependence, uncomplicated 6 or more cartridges/day PRN [4 mg/cartridge]; do not exceed 16 cartridges/day 42 each 05/22/2021 Active nitroglycerin 0.4 mg sublingual tablet (20 sources) Nitrate Vasodilator Start: 02-05-2021 nitroglyce rin (NITROSTAT) 0.4 MG SL tablet 1 under the tongue as needed for angina, may repeat q5mins for up three doses 25 tablet 1 02/05/2021 Active nitroglycerin (N ITROSTAT) 0.[address] 1 tablet (0.4 mg total) under the tongue. Active 2 ml ondansetron 2 mg/ml injection (1 source) Serotonin-3 Receptor Antagonist Start: 02-12-2021 ondansetron (ZOFRAN) injection 4 mg oseltamivir 75 mg oral capsule (4 sources) Neuraminidase Inhibitor Start: 12-29-2024 End: 01-03-2025 take 1 capsule by mouth in the morning, then take 1 capsule by mouth at bedtime oseltamivir (TAMIFLU) 75 mg capsule Take 1 capsule (75 mg total) by mouth in the morning and 1 capsule (75 mg total) before bedtime. Do all this for 5 days. 10 capsule 12/29/2024 01/03/2025 Active oxyCODONE hydrochloride 5 mg oral tablet (4 sources) Opioid Agonist Start: 04-25-2019 take 1 tablet by mouth every six hours as needed for pain Oxycodone 5 mg tablet Active 5 MG PO Q6H as needed for pain 24 05April 25, 2019 pantoprazole 40 mg delayed release oral tablet (7 sources) Proton Pump Inhibitor Start: 04-26-2024 End: 05-26-2024 take 1 tablet by mouth once daily before breakfast pantoprazole (PROTONIX) 40 mg EC tablet Take 1 tablet (40 mg total) by mouth every morning before breakfast for 30 days. 30 tablet 04/26/2024 05/26/2024 Active predniSONE 10 mg oral tablet (20 sources) Start: 12-29-2024 predniSONE (DELTASONE) 10 mg tablet Take 4 tabs daily x 3 days, then take 3 tabs daily x 3 days, then take 2 tabs daily x 3 days, then take 1 tab daily x 3 days 31 tablet 12/29/2024 Active Start: 11-03-2024 End: 03-03-2025 take 1 tablet by mouth in the morning predniSONE (DELTASONE) 5 mg tablet Indications: Bronchiectasis without complication (CMS-HCC) Take 1 tablet (5 mg total) by mouth in the morning for 120 days. 30 tablet 3 11/03/2024 03/03/2025 Active Start: 10-24-2024 End: 2024 take 2 tablets by mouth once daily, then take 1.5 tablets by mouth once daily, then take 1 tablet by mouth once daily, then take 0.5 tablet by mouth once daily predniSONE (DELTASONE) 20 mg tablet Take 2 tablets (40 mg total) by mouth daily for 5 days, THEN 1.5 tablets (30 mg total) daily for 3 days, THEN 1 tablet (20 mg total) daily for 3 days, THEN 0.5 tablets (10 mg total) daily for 3 days. 19 tablet 10/24/2024 11/03/2024 Discontinued Start: 09-27-2024 predniSONE (DE LTASONE) 10 mg tablet Take 4 tabs daily x 3 days, then take 3 tabs daily x 3 days, then take 2 tabs daily x 3 days, then take 1 tab daily x 3 days 31 tablet 09/27/2024 Active Start: 04-13-2024 End: 05-17-2024 take 3 tablets by mouth once daily Prednisone 20 mg tablet Discontinued 20 MG PO Twice daily 60 April 13, 2024 12:00am April 13, 2024 11:40am Take three tablets by mouth daily. Start: 04-13-2024 End: 05-17-2024 take 3 tablets by mouth once daily at mealtime Prednisone Discontinued 60 MG PO Once 60 April 13, 2024 12:00am May 17, 2024 9:30am TAKE THREE TABLETS DAILY, IN THE MORNING WITH FOOD. Start: 03-03-2024 End: 05-05-2024 take 1 tablet by mouth in the morning predniSONE (DELTASONE) 20 mg tablet Indications: Moderate COPD (chronic obstructive pulmonary disease) ([facility]) Take 1 tablet (20 mg total) by mouth in the morning. 7 tablet 7 03/03/2024 05/05/2024 Discontinued End: 02-11-2021 take 1 tablet by mouth [...] (CMS-HCC) , Cerebrovascular accident (CVA), unspecified mechanism ([facility]) , Atherosclerosis of [place] coronary artery of [place] heart without angina pectoris , Status post insertion of drug eluting coronary artery stent TAKE 1 TABLET BY MOUTH EVERY DAY 30 tablet 2 10/16/2022 Active sodium chloride 30 mg/ml inhalation solution (20 sources) Start: 05-05-2024 take 120 mL by inhalation once daily sodium chloride 3 % nebulizer solution Indications: Moderate COPD (chronic obstructive pulmonary disease) ([facility]) , Bronchiectasis without complication ([facility]) Inhale by nebulization daily. 120 mL 12 05/05/2024 Active Start: 02-12-2021 sodium chlorid e flush 0.9 % injection 5-40 mL Start: 02-12-2021 0.9 % sodium c hloride infusion sotalol hydrochloride 120 mg oral tablet (4 sources) Antiarrhythmic Start: 04-23-2019 take 1 tablet by mouth twice daily Sotalol 120 mg Tablet Active 120 MG PO Twice daily 60 April 23, 2019 12:00am sucralfate 100 mg/ml oral suspension (7 sources) Aluminum Complex Start: 04-27-2024 End: 05-27-2024 sucralfate (CARAFATE) 100 mg/mL suspension Take 10 mL (1,000 mg total) by mouth in the morning and 10 mL (1,000 mg total) at noon and 10 mL (1,000 mg total) in the evening and 10 mL (1,000 mg total) before bedtime. Do all this for 30 days. 1200 mL 04/27/2024 05/27/2024 Active 10 actuat tiotropium 0.0025 mg/actuat inhalation spray (18 sources) Anticholinergic Start: 09-05-2021 take 2 puff(s) by inhalation once daily tiotropium bromide (SPIRIVA RESPIMAT) 2.5 mcg/actuation mist Indications: COPD without exacerbation ([facility]) Inhale 2 puffs daily. 4 g 10 09/05/2021 Active Start: 01-12-2019 End: 02-12-2021 take 1 capsule by inhalation once daily Tiotropium [place] (Spiriva With Handihaler) 18 mcg Capsule, W/Inhalation Device Active 1 CAP INHALATION Daily January 12, 2019 12:00am tiZANidine 4 mg oral tablet (13 sources) Central alpha-2 Adrenergic Agonist Start: 04-15-2022 take 2 mg by mouth every six hours as needed tiZANidine (ZANAFLEX) 4 mg tablet Take 0.5 tablets (2 mg total) by mouth every 6 (six) hours as needed for muscle spasms. 30 tablet 04/15/2022 Active Completed/Discontinued Medications Medication Drug Class(es) Dates Sig (Normalized) Sig (Original) acetylcysteine 100 mg/ml inhalation solution (5 sources) Antidote, Mucolytic, Antidote for Acetaminophen Overdose Start: 06-02-2023 End: 01-07-2024 take 4 mL by inhalation in the morning acetylcysteine (MUCOMYST) 100 mg/mL (10 %) nebulizer solution Indications: Moderate COPD (chronic obstructive pulmonary disease) ([facility]) , Cough, persistent Inhale 4 mL by nebulization in the morning and 4 mL before bedtime. 240 mL 3 06/02/2023 01/07/2024 Discontinued 60 actuat fluticasone propionate 0.25 mg/actuat / salmeterol 0.05 mg/actuat dry powder inhaler (20 sources) Corticosteroid, beta2-Adrenergic Agonist Start: 11-27-2021 End: 05-05-2024 take 1 puff(s) by mouth twice daily WIXELA INHUB 250-50 mcg/dose DISKUS TAKE 1 PUFF BY MOUTH TWICE A DAY 60 each 9 11/27/2021 05/05/2024 Discontinued Start: 01-12-2019 Fluticasone Pr opion-Salmeterol (Advair Diskus) 250-50 mcg/dose Blister With Device Active 1 INH INHALATION Twice daily January 12, 2019 12:00am take 1 puff(s) by in halation twice daily fluticasone-salmeterol (ADVAIR) 250-50 MCG/DOSE AEPB Inhale 1 puff into the lungs 2 times daily 0 Active gabapentin 100 mg oral capsule (4 sources) Anti-epileptic Agent Start: 04-18-2019 End: 04-18-2019 Gabapentin 100 mg capsule Discontinued April 18, 2019 12:00am April 18, 2019 8:41am Start: 04-18-2019 End: 04-18-2019 Gabapentin Discontinued April 18, 2019 12:00am April 18, 2019 8:41am ipratropium bromide 0.2 mg/ml inhalation solution (3 sources) Anticholinergic Start: 10-24-2024 End: 11-03-2024 take 2.5 mL by inhalation four times daily as needed for wheezing ipratropium (ATROVENT) 0.02 % nebulizer solution Indications: Atrial fibrillation with rapid ventricular response (CMS-HCC) Inhale 2.5 mL (0.5 mg total) by nebulization 4 (four) times a day as needed for wheezing or shortness of breath. 75 mL 10/24/2024 11/03/2024 Discontinued levalbuterol 0.417 mg/ml inhalation solution (9 sources) beta2-Adrenergic Agonist Start: 10-24-2024 End: 11-14-2024 levalbuterol (XOPENEX) 1.25 mg/3 mL nebulizer solution Indications: Atrial fibrillation with rapid ventricular response (CMS-HCC) Inhale 3 mL (1.25 mg total) by nebulization in the morning and 3 mL (1.25 mg total) at noon and 3 mL (1.25 mg total) in the evening. 72 mL 10/24/2024 11/14/2024 Discontinued (Therapy completed) metFORMIN hydrochloride 500 mg oral tablet (1 source) Biguanide End: 02-11-2021 take 1 tablet by mouth twice daily at mealtime metFORMIN (GLUCOPHAGE) 500 MG tablet Take 500 mg by mouth 2 times daily (with meals) 0 02/11/2021 Discontinued (LIST CLEANUP) traMADol hydrochloride 50 mg oral tablet (4 sources) Opioid Agonist Start: 01-12-2019 End: 04-25-2019 take 1 tablet by mouth every six hours as needed for pain Tramadol 50 mg tablet Discontinued 50 MG PO Q6H as needed for Pain January 12, 2019 12:00am April 25, 2019 12:34pm vitamin b12 1 mg oral tablet (9 sources) Vitamin B12 Start: 10-24-2024 End: 11-23-2024 take 1 tablet by mouth in the morning cyanocobalamin 1000 MCG tablet Take 1 tablet (1,000 mcg total) by mouth in the morning for 30 days. 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 EHR Cmte Cardiac dysrhythmias (1 source) Tachycardia, unspecified; Translations: [Tachycardia, unspecified] Onset: 10-21-2024 Episodic Chronic obstructive pulmonary disease and bronchiectasis (20 sources) Chronic obstructive lung disease; Translations: [Chronic obstructive pulmonary disease, unspecified] Onset: 09-23-2018 10-07-2023 Chronic Comment on above: Problem List clean-u p per request of Phys. EHR Cmte Complications of surgical procedures or medical care (20 sources) Postoperative hypothyroidism; Translations: [Postprocedural hypothyroidism] Onset: 09-01-2022 09-01-2022 Chronic Coronary atherosclerosis and other heart disease (20 sources) New onset angina; Translations: [Angina pectoris, unspecified] Onset: 02-05-2021 02-05-2021 Chronic Diabetes mellitus with complications (20 sources) Type 2 diabetes mellitus with peripheral angiopathy; Translations: [Type 2 diabetes mellitus with diabetic peripheral angiopathy without gangrene] Onset: 08-09-2020 10-21-2024 Chronic Diabetes mellitus without complication (5 sources) Diabetes mellitus; Translations: [Type 2 diabetes mellitus without complications] Onset: 01-25-2024 10-07-2023 Chronic Comment on above: Problem List clean-u p per request of Phys. EHR Cmte Disorders of lipid metabolism (20 sources) Mixed hyperlipidemia; Translations: [Mixed hyperlipidemia] Onset: 04-25-2024 10-21-2024 Chronic Esophageal disorders (20 sources) Gastroesophageal reflux disease without esophagitis; Translations: [Gastro-esophageal reflux disease without esophagitis] Onset: 04-26-2024 10-21-2024 Chronic Occlusion or stenosis of precerebral arteries (20 sources) Bilateral stenosis of carotid arteries; Translations: [Occlusion and stenosis of bilateral carotid arteries] Onset: 06-16-2024 06-16-2024 Chronic Other aftercare (4 sources) Patient encounter status; Translations: [Encounter for palliative care] 03-07-2024 Episodic Other aftercare (18 sources) Long-term current use of anticoagulant; Translations: [halfway (current) use of anticoagulants] Onset: 10-21-2024 10-21-2024 Episodic Other connective tissue disease (1 source) History of reverse prosthetic total arthroplasty of left shoulder; Translations: [Presence of left artificial shoulder joint] 03-04-2024 Chronic Other ear and sense organ disorders (20 sources) Hearing loss; Translations: [Unspecified hearing loss, unspecified ear] Onset: 10-03-2021 10-03-2021 Chronic Other lower respiratory disease (1 source) Radiologic infiltrate of lung ; Translations: [Other nonspecific abnormal finding of lung field] 11-03-2024 Episodic Other lower respiratory disease (2 sources) Other nonspecific abnormal finding of lung field; Translations: [Other nonspecific abnormal finding of lung field] Onset: 11-03-2024 Episodic Other lower respiratory disease (1 source) Rib pain Onset: 10-21-2024 Episodic Other nervous system disorders (4 sources) Pain due to neoplastic disease; Translations: [Neoplasm related pain (acute) (chronic)] 03-07-2024 Chronic Other nervous system disorders (1 source) Chronic pain syndrome; Translations: [Chronic pain syndrome] Onset: 10-21-2024 Chronic Other nutritional; endocrine; and metabolic disorders (20 sources) Hypocalcemia; Translations: [Hypocalcemia] Onset: 04-25-2024 04-25-2024 Chronic Other nutritional; endocrine; and metabolic disorders (10 sources) Rrcvn-5-rmgfxpgoelq deficiency; Translations: [Llgak-6-dnlpxgjwexj deficiency] Onset: 08-09-2020 08-09-2020 Chronic Other nutritional; endocrine; and metabolic disorders (1 source) Hypocalcemia; Translations: [Hypocalcemia] Onset: 04-25-2024 Chronic Other nutritional; endocrine; and metabolic disorders (1 source) Dmwsy-5-ddbilwfysib deficiency; Translations: [Vtusi-3-lqjqzscurbd deficiency] Onset: 08-09-2020 Chronic Peripheral and visceral atherosclerosis (20 sources) Peripheral vascular disease, unspecified; Translations: [Intermittent claudication] Onset: 05-24-2019 Chronic Comment on above: Problem List clean-u p per request of Phys. EHR Cmte Residual codes; unclassified (1 source) Pain, unspecified; Translations: [Pain, unspecified] Onset: 11-04-2024 Episodic Spondylosis; intervertebral disc disorders; other back problems (20 sources) Cervical spondylosis; Translations: [Spondylosis without myelopathy or radiculopathy, cervical region] Onset: 12-15-2018 12-15-2018 Chronic Substance-related disorders (20 sources) Cigarette smoker ; Translations: [Nicotine dependence, cigarettes, uncomplicated] Onset: 06-16-2024 10-21-2024 Chronic Thyroid disorders (20 sources) Hypothyroidism; Translations: [Hypothyroidism, unspecified] Onset: 01-25-2024 10-21-2024 Chronic Unclassified (1 source) Cold Like Symptoms Onset: 08-17-2024 Unclassified (1 source) Subacute cough; Translations: [Subacute cough] Onset: 02-01-2024 Unclassified (1 source) Post-op Problem Onset: 02-01-2024 Unclassified (1 source) Weakness, Post Biopsy Proscedure Onset: 02-01-2024 Unclassified (1 source) LANGULAR OBSTRUCTION AND CHRONIC COUGH Onset: 01-26-2024 Past or Other Problems Problem Classification Problem Date Documented Date Episodic/Chronic Alcohol-related disorders (20 sources) Alcohol intoxication; Translations: [Alcohol use, unspecified with intoxication, unspecified] Onset: 08-09-2020 08-09-2020 Episodic Chronic obstructive pulmonary disease and bronchiectasis (1 source) Bronchitis, not specified as acute or chronic; Translations: [Bronchitis, not specified as acute or chronic] Onset: 08-17-2024 Episodic Fluid and electrolyte disorders (20 sources) Hypokalemia; Translations: [Hypokalemia] Onset: 04-25-2024 04-25-2024 Episodic Fracture of upper limb (20 sources) Closed fracture proximal humerus, four part; Translations: [Other displaced fracture of upper end of left humerus, initial encounter for closed fracture] Onset: 09-14-2018 09-14-2018 Episodic Joint disorders and dislocations; trauma-related (20 sources) Dislocation of joint of upper limb; Translations: [Anterior dislocation of left humerus, initial encounter] Onset: 09-14-2018 09-14-2018 Episodic Malaise and fatigue (2 sources) Other fatigue; Translations: [Weakness] Onset: 02-01-2024 Episodic Mood disorders (20 sources) Mood disorders Onset: 06-05-2021 06-05-2021 Nonspecific chest pain (20 sources) Chest pain; Translations: [Chest pain, unspecified] Onset: 04-25-2024 04-25-2024 Episodic Other circulatory disease (20 sources) Carotid bruit; Translations: [Other specified symptoms and signs involving the circulatory and respiratory systems] Onset: 05-26-2024 05-26-2024 Episodic Other connective tissue disease (20 sources) Full thickness rotator cuff tear; Translations: [Complete rotator cuff tear or rupture of left shoulder, not specified as traumatic] Onset: 12-04-2015 12-04-2015 Episodic Other lower respiratory disease (20 sources) Dyspnea; Translations: [Shortness of breath] Onset: 02-05-2021 02-05-2021 Episodic Other lower respiratory disease (20 sources) Nodule of lung; Translations: [Solitary pulmonary nodule] Onset: 05-26-2019 05-26-2019 Episodic Other lower respiratory disease (1 source) Dyspnea on exertion; Translations: [Other forms of dyspnea] 01-07-2024 Episodic Other lower respiratory disease (3 sources) Solitary pulmonary nodule; Translations: [Solitary pulmonary nodule] Onset: 05-26-2019 Episodic Other lower respiratory disease (2 sources) Shortness of breath; Translations: [Shortness of breath] Onset: 02-05-2021 Episodic Other lower respiratory disease (1 source) Other forms of dyspnea; Translations: [Other forms of dyspnea] Onset: 01-07-2024 Episodic Other non-traumatic joint disorders (1 source) Pain in left shoulder; Translations: [Pain in joint, shoulder region] 03-04-2024 Episodic Other screening for suspected conditions (not mental disorders or infectious disease) (20 sources) CT of chest abnormal; Translations: [Abnormal findings on diagnostic imaging of other specified body structures] Onset: 09-23-2018 Resolved: 07-28-2024 07-28-2024 Chronic Other screening for suspected conditions (not mental disorders or infectious disease) (20 sources) Cardiovascular stress test abnormal; Translations: [Abnormal result of other cardiovascular function study] Onset: 02-05-2021 Episodic Other upper respiratory disease (20 sources) Nasal vestibulitis; Translations: [Other specified disorders of nose and nasal sinuses] Onset: 01-07-2022 01-07-2022 Episodic Other upper respiratory infections (20 sources) Acute sinusitis; Translations: [Acute sinusitis, unspecified] Onset: 08-22-2021 Resolved: 09-05-2021 09-05-2021 Episodic Pathological fracture (20 sources) Pathological fracture of humerus due to osteoporosis; Translations: [Age-related osteoporosis with current pathological fracture, left humerus, initial encounter for fracture] Onset: 09-14-2018 09-14-2018 Episodic Pneumonia (except that caused by tuberculosis or sexually transmitted disease) (20 sources) Pneumonia; Translations: [Pneumonia, unspecified organism] Onset: 10-21-2024 Resolved: 11-03-2024 10-21-2024 Episodic Residual codes; unclassified (20 sources) Tobacco user; Translations: [Tobacco use] Onset: 09-23-2018 10-21-2024 Episodic Residual codes; unclassified (20 sources) Genetic disorder carrier; Translations: [Genetic carrier of other disease] Onset: 09-23-2018 Resolved: 03-03-2024 03-03-2024 Episodic Residual codes; unclassified (1 source) Genetic carrier of other disease; Translations: [Genetic carrier of other disease] Onset: 03-03-2024 Episodic Residual codes; unclassified (1 source) Tobacco use; Translations: [Tobacco use] Onset: 05-07-2020 Episodic Spondylosis; intervertebral disc disorders; other back problems (20 sources) Neck pain; Translations: [Cervicalgia] Onset: 12-15-2018 12-15-2018 Episodic Results Test Name Value Interpretation Reference Range Facility CT chest wo rosa 01-05-2025 CT chest wo [facility] [address] [address] [address] Scan Report Signed Patient: Jazzmine Patel MR#: [id number] : 1950 Acct:[id number] Age/Sex: 74 / F ADM Date: 01/05/25 Loc: XT [facility]: [facility] Attending Dr: Urszula Etienne MD Copies to: Urszula Etienne MD Ordering Provider: Urszula Etienne MD Date of Service: 01/05/25 CT/CT chest wo con: surveillance CT CHEST WITHOUT CONTRAST COMPARISON: 10/06/2024 CLINICAL DATA: Follow-up in patient with history of lung cancer. Spiral images were obtained through the chest without contrast. Images were reviewed using both narrow and wide window settings. This CT exam was performed using one or more following dose reduction techniques: Automated exposure control, adjustment of the mA and/or kV according to patient size, or use of iterative reconstruction technique. The heart is top normal in size. No pericardial effusion is present. Coronary artery disease is seen. No aortic aneurysm is noted. There is atherosclerotic plaque at the aorta and proximal great vessels. A similar precarinal lymph node is visualized. No developing adenopathy is seen. There is minor degenerative change and subtle scoliotic curvature at the spine. No acute osseous abnormalities are identified. There is obstructive lung disease with airspace lucencies. There is similar scarring with pleural- based nodularity at the lung apices. There is also similar scarring within the lingula extending from the left inferior hilar region along the distal major fissure laterally. Scattered nodular densities are again noted on both sides. The largest is at the left lower lobe measuring approximately 8 mm in size on the sagittal reconstructions. These are similar. There are also a couple calcified granulomas. There is subtle developing reticular nodular change at the right middle lobe. Limited cuts through the upper abdomen show bilateral nephrolithiasis. There is slight adrenal limb thickening. Additional atherosclerotic disease is seen. CT/CT chest wo con IMPRESSION: OBSTRUCTIVE LUNG DISEASE. BILATERAL SCARRING. PULMONARY NODULARITY, SIMILAR TO THE PRIOR. MINOR DEVELOPING RIGHT MIDDLE LOBE RETICULAR NODULAR CHANGE. THIS MIGHT BE INFECTIOUS OR INFLAMMATORY. Impression dictated by: Ifeoma Abreu M.D.01/05/2025 10:34 AM Dictation Location: [place] [address] Transcribed By: [facility] 01/05/25 1034 Dictated By: Ifeoma Abreu MD 01/05/25 1009 Signed By: 01/05/25 1034 Normal [facility] XR CHEST 2 VWSon 12-18-2024 XR CHEST 2 VWS XR CHEST 2 VWS Chest 2 views History: Pneumonia of left lower lobe due to infectious organism Comparison: 11/03/2024 Findings: Chest 2 views. The cardiac mediastinal silhouette. Decreasing left lower lung and lingular opacity with mild left perihilar and lingular volume loss remaining. Emphysematous change. Impression: Persistent left perihilar and lingular volume loss or atelectasis. No significant interval change or new or acute process. Finalized by Eebr Kumar MD on 12/18/2024 10:37 AM Normal [facility] AFB CULTURE(CONCENTRATED)on 11-15-2024 Mycobacterium sp identified Org specific cx Nom (Unsp spec) AFB SMEAR NO ACID FAST BACILLI (CONCENTRATED SMEAR) CULTURE RESULTS NO ACID FAST BACILLI ISOLATED IN 8 WEEKS [facility] Comment on above: Performed By: #### 5 43-9 ####[facility] ([id number])[address], [address] [place] [id number] AND DIFFon 2024 BODY FLUID COMMENT Assorted lining cell s present. Normal [facility] Comment on above: Result Comment: ---- ------Interpretation-------- Reference values for this fluid type are undefined, as fluid accumulation is considered abnormal. Performed By: #### B FCT ####[facility] ([id number])[address], [address] [place] [address] FLUID CLARITY HAZY Normal [facility] Comment on above: Performed By: #### B FCT ####[facility] ([id number])[address], [address] [address] FLUID COLOR PINK Normal [facility] Comment on above: Performed By: #### B FCT ####[facility] ([id number])[address], [address] [place] [address] FLUID NEUTROPHILS 92 % Normal [facility] Comment on above: Performed By: #### B FCT ####[facility] ([id number])[address] [facility], [address], [place] [address] 2800 /uL Normal [facility] Comment on above: Performed By: #### B FCT ####[facility] ([id number])[address] [facility], [address] [address] FLUID SPECIMEN TYPE BRONCHOALVEOLAR LAVAGE Normal [facility] Comment on above: Performed By: #### B FCT ####[facility] ([id number])[address] [facility], [address] [address] MACROPHAGES 8 % Normal [facility] Comment on above: Performed By: #### B FCT ####[facility] ([id number])[address] [facility], [address], [place] [address] 97 /uL Normal [facility] Comment on above: Performed By: #### B FCT ####[facility] ([id number])[address] [facility], [address] [place] [address] Cytologyon 11-15-2024 Cytology Normal [facility] Comment on above: Result Comment: [facility] [address] [place] [address] Cytology Consultation Patient Name:JAZZMINE PATEL:1950 (Age: 74)Gender:FTaken:11/15/2024Reported:12/02/2024 12:05Physician(s):EILEEN FONSECA DO ([phone])Copy To: Rec. #:[id number]: #[id number] Final Cytologic Diagnosis Lung, lingula, bronchoalveolar lavage: Rare atypical cells in a background of acute inflammation, favor reactive atypia (see comment). Comment: The ThinPrep smear shows rare atypical cells in a background of acute inflammation and scattered pigment-bearing macrophages, most likely representing smoker's macrophages. These atypical cells are favored to be reactive atypia. The findings must be correlated with the microbiology culture result and the surgical pathology report of the concurrent lung biopsy (CC #[id number]). NOTE: The above diagnosis and comment is that of Aviva Silver MD, [facility], [place], [place]. Please see the complete report in the patient's EMR. [facility]/12/02/2024 Interpretation performed at [facility] [place], [address] [place] [address], [place] [address], License number: [id number].Electronically Signed Out By Shivani Dutton MD Additional Report(s): Preliminary Report (PHS) Date Reported: 11/21/2024 Lung, lingula, bronchoalveolar lavage: Atypical epithelial cells present. This case is sent out for consultation. Electronically Signed Out Shivani Dutton MD Clinical History Persistent lingular infiltrate Gross Description Received was 15ml of cloudy pink fluid unfixed labeled as Homler, Lung lingula BAL . CytoLyt added in lab. Specimen placed in formalin at 09:00 and had a total fixation time of 16 hours. Source of Specimen Lung lingula bronchoalveolar lavage Cell block for Non-operator bearer systems (M), Level 2 H&E, Non TOP TILE DECORATOR ThinPrep Fee Code(s): 1; 00441, 17292 FUNGAL CULTUREon 11-15-2024 Fungus identified Cx Nom (Unsp spec) FUNGAL SMEAR NO FUNGAL ELEMENTS SEEN ON CONCENTRATED SMEAR CULTURE RESULTS ALANA ALBICANS ASPERGILLUS SPECIES IDENTIFIED : ASPERGILLUS USTUS COMPLEX Normal [facility] Comment on above: Performed By: #### 5 80-1 ####[facility] ([id number])[address] [place] [address], [address], [place] [address] LOWER RESPIRATORY CULTUREon 11-15-2024 Bacteria identified Respiratory culture Nom (Sput) GRAM STAIN 0 to 1 WHITE BLOOD CELLS/LPF 0 to 1 SQUAMOUS EPITHELIAL CELLS/LPF 0 CILIATED EPITHELIAL CELLS/LPF FEW GRAM POSITIVE COCCI IN PAIRS CULTURE RESULTS RARE ALANA ALBICANS ALONG WITH FEW NORMAL ORAL SANA Normal [facility] Comment on above: Performed By: #### 6 24-7 ####[facility] ([id number])[address] [place] [address], [address] [place] [address] Surgical Pathologyon 025 Surgical Pathology Normal [facility] Comment on above: Result Comment: [facility] [address] [place] [address] Surgical Pathology Consultation Patient Name:JAZZMINE PATEL:1950 (Age: 74)Gender:FTaken:11/15/2024Reported:12/06/2024Physician(s):EILEEN FONSECA DO ([phone])Copy To: Rec. #:[id number]: #[id number] Final Pathologic Diagnosis 1. Right lung, bronchus intermedius, biopsy: Lung parenchyma with extensive organizing fibroinonecroinflammatory debris and atypical cells, favor reactive (see comment). 2. Left lung, lingula, endobronchial biopsy: Fragments of bronchial mucosa and submucosa with focal atypical glandular proliferation, not diagnostic of malignancy (see comment). Comment: The biopsy of the lingula (2) contains fragments of bronchial tissue with a focal proliferation of glands with complex architecture and atypical nuclei. Recut sections were performed at the [facility] for evaluation of this case. Immunohistochemical stains for TTF-1 and p40 (A1, A2) the atypical cells in the biopsy of the bronchus intermedius are positive for p40 and negative for TTF-1 suggesting reactive metaplastic squamous cells associated with fibrin and necrotic debris. The atypical glandular proliferation in the biopsy of the lingula (2) is negative for TTF-1 and is surrounded by a layer of basal cells (positive for p40). Overall, the cells in the biposy of the bronchus intermedius (1) are favored to be reactive metaplastic squamous cells. The cytologic appearance of a focus of atypical glands is suspicious for adenocarcinoma, however, given the presence of a continuous basal cell layer, a definitive diagnosis is not possible. Dr. Shira Murrell has also reviewed the biopsy of the lingua (2), who agrees that a definitive diagnosis of malignancy is not possible. NOTE: The above diagnoses and comment are those of Amado Andrews MD, [place], [place]. Please see the complete report in the patient's EMR. Report Electronically Signed Out [facility]/12/06/2024Shivani Dutton MD Preliminary Report (PHS) Date Reported: 11/21/2024 1. Lung, bronchus intermedius, biopsy: Atypical epithelial cells with inflamed background. 2. Lung, lingula, endobronchial biopsy: Atypical glandular proliferation present. This case is sent out for consultation. Electronically Signed Out Shivani Dutton MD Interpretation performed at [facility], [address] [place] [address], License number: [id number]. Clinical History Persistent lingular infiltrate. Gross Description 1. Received in formalin labeled HOMLER, bronchus intermedius biopsies are 3 thurston feathery fragments of soft tissue, ranging from 0.1 to 0.3 cm in greatest dimension. Filtered and submitted in a single cassette. (1, ns, [id number], m5) MG 2. Received in formalin labeled HOMLER, endobronchial tumor of the lingula are multiple thurstno feathery fragments of soft tissue, aggregating to 0.8 x 0.2 x 0.1 cm. Filtered and submitted in a single cassette. (1, ns, [id number], m5) MG [facility] [place]/5AO Specimen(s) Received 1: Bronchus intermedius biopsies 2: Biopsies of endobronchial tumor of lingula Fee Codes(s): 1; 65046 2; 49837, 11835 BASIC METABOLIC PANLon 11-14 Anion gap [Moles/Vol] 12 mmol/L Normal 5-15 [facility] Comment on above: Performed By: #### P INR, 45411-8 #### [facility] ([id number]) [address] [place] [address] 08160 Calcium [Mass/Vol] 7.6 mg/dL Low 8.5-10.5 [facility] Comment on above: Performed By: #### P INR, 69078-1 #### [facility] ([id number]) [address] [place] [address] 51556 Chloride [Moles/Vol] 102 mmol/L Normal 98-109 [facility] Comment on above: Performed By: #### P INR, 74851-0 #### [facility] ([id number]) [address] [place] [address] 49301 CO2 [Moles/Vol] 28 mmol/L Normal 22-32 [facility] Comment on above: Performed By: #### P INR, 09632-9 #### [facility] ([id number]) [address] [place] [address] 79606 Creatinine [Mass/Vol] 1.00 mg/dL Normal 0.40-1.00 [facility] Comment on above: Result Comment: METH OD TRACEABLE TO IDMS STANDARD Performed By: #### P INR, 84886-7 #### [facility] ([id number]) [address] [place] [address] 72080 GFR/1.73 sq M.predicted among non-blacks MDRD (S/P/Bld) [Vol rate/Area] 60 mL/min/{1.73_m2} Normal >59 [facility] Comment on above: Result Comment: Reported eGFR is based on the CKD-EPI 2020 equation that does not use a race coefficient. Performed By: #### P INR, 45778-1 #### [facility] ([id number]) [address] [place] [address] 73707 Glucose [Mass/Vol] 168 mg/dL High 65-99 [facility] Comment on above: Performed By: #### P INR, 41765-7 #### [facility] ([id number]) [address] [place] [address] 63240 Potassium [Moles/Vol] 3.7 mmol/L Normal 3.5-5.0 [facility] Comment on above: Performed By: #### P INR, 47154-6 #### [facility] ([id number]) [address] [place] [address] 48172 Sodium [Moles/Vol] 142 mmol/L Normal 134-146 [facility] Comment on above: Performed By: #### P INR, 46367-8 #### [facility] ([id number]) [address] [place] [address] 86515 Urea nitrogen [Mass/Vol] 20 mg/dL Normal 5-27 [facility] Comment on above: Performed By: #### P INR, 75141-6 #### [facility] ([id number]) [address] [place] [address] 46553 CBC AND AUTO DIFFon 01-20-20 25 ABSOLUTE BASOPHIL 0.1 X10E9/L Normal 0.0-0.2 [facility] Comment on above: Performed By: #### P INR, 54809-7 #### [facility] ([id number]) [address] [place] [address] 47872 ABSOLUTE NEUTROPHIL 4.6 X10E9/L Normal 1.5-6.6 [facility] Comment on above: Performed By: #### P INR, 67833-5 #### [facility] ([id number]) [address] [place] [address] 17274 Basophils/100 WBC (Bld) 1.2 % Normal [facility] Comment on above: Performed By: #### P INR, 03867-0 #### [facility] ([id number]) [address] [place] [address] 80833 Eosinophils (Bld) [#/Vol] 0.1 10*3/uL Normal 0.0-0.4 [facility] Comment on above: Performed By: #### P INR, 51869-7 #### [facility] ([id number]) [address] [place] [address] 29722 Eosinophils/100 WBC (Bld) 2.4 % Normal [facility] Comment on above: Performed By: #### P INR, 08371-6 #### [facility] ([id number]) [address] [place] [address] 36842 Erythrocyte distribution width (RBC) [Ratio] 16.3 % High 11.5-15.0 [facility] Comment on above: Performed By: #### P INR, 86663-1 #### [facility] ([id number]) [address] [place] [address] 04662 Hematocrit (Bld) [Volume fraction] 42.5 % Normal 35-47 [facility] Comment on above: Performed By: #### P INR, 06904-2 #### [facility] ([id number]) [address] [place] [address] 51709 Hemoglobin (Bld) [Mass/Vol] 14.3 g/dL Normal 11.7-15.5 [facility] Comment on above: Performed By: #### P INR, 81366-8 #### [facility] ([id number]) [address] [place] [address] 53001 Lymphocytes (Bld) [#/Vol] 0.9 10*3/uL Low 1.0-3.5 [facility] Comment on above: Performed By: #### P INR, 50081-5 #### [facility] ([id number]) [address] [place] [address] 64634 Lymphocytes/100 WBC (Bld) 14.1 % Normal [facility] Comment on above: Performed By: #### P INR, 44818-4 #### [facility] ([id number]) [address] [place] [address] 84169 MCH (RBC) [Entitic mass] 30.7 pg Normal 27-34 [facility] Comment on above: Performed By: #### P INR, 89693-7 #### [facility] ([id number]) [address] [place] [address] 11988 MCHC (RBC) [Mass/Vol] 33.8 g/dL Normal 32-36 [facility] Comment on above: Performed By: #### P INR, 82878-1 #### [facility] ([id number]) [address] [place] [address] 02361 MCV (RBC) [Entitic vol] 91 fL Normal 80-100 [facility] Comment on above: Performed By: #### P INR, 88450-6 #### [facility] ([id number]) [address] [place] [address] 49458 Monocytes (Bld) [#/Vol] 0.4 10*3/uL Normal 0-0.9 [facility] Comment on above: Performed By: #### P INR, 76766-3 #### [facility] ([id number]) [address] [place] [address] 20893 Monocytes/100 WBC (Bld) 6.1 % Normal [facility] Comment on above: Performed By: #### P INR, 49241-2 #### [facility] ([id number]) [address] [place] [address] 96775 Neutrophils/100 WBC (Bld) 76.2 % Normal [facility] Comment on above: Performed By: #### P INR, 86341-6 #### [facility] ([id number]) [address] [place] [address] 51340 Platelet mean volume (Bld) [Entitic vol] 8.2 fL Normal 7-12 [facility] Comment on above: Performed By: #### P INR, 16063-9 #### [facility] ([id number]) [address] [place] [address] 03922 Platelets (Bld) [#/Vol] 226 10*3/uL Normal 150-450 [facility] Comment on above: Performed By: #### P INR, 49595-0 #### [facility] ([id number]) [address] [place] [address] 28736 RBC COUNT 4.66 X10E12/L Normal 3.80-5.20 [facility] Comment on above: Performed By: #### P INR, 15526-5 #### [facility] ([id number]) [address] [place] [address] 06495 WBC (Bld) [#/Vol] 6.1 10*3/uL Normal 4.0-11.0 [facility] Comment on above: Performed By: #### P INR, 48497-4 #### [facility] ([id number]) [address] [place] [address] 48164 PROTIME AND INRon 11-14-2024 INR Coag (PPP) [Relative time] 1.0 {INR} Normal 0.8-1.1 [facility] Comment on above: Performed By: #### P INR, 70632-8 #### [facility] ([id number]) [address] [place] [address] 86678 PT Coag (PPP) [Time] 11.2 s Normal 9.8-13.2 [facility] Comment on above: Performed By: #### P INR, 69805-9 #### [facility] ([id number]) [address] [place] [address] aPTT Coag (PPP) [Time]on aPTT Coag (Bld) [Time] 31 s Normal 26-37 [facility] Comment on above: Result Comment: NEW REFERENCE RANGE Performed By: #### P INR, 07301-5 #### [facility] ([id number]) [address] [place] [address] CT Chest WO contraston 11-08 Radiology Study observation (narrative) [facility] XR CHEST 2 VWSon 11-03-2024 XR CHEST 2 VWS XR CHEST 2 VWS XR CHEST 2 VWS History: . Bronchiectasis without complication (CMS-HCC); Pulmonary infiltrate present on computed tomography. Comparison: None Impression: Hyperinflated lungs suggestive of COPD. Biapical scarring. Ill-defined multifocal pulmonary parenchymal opacities throughout the lingula, possibly infectious, atelectasis is also possible. Correlate clinically. No lobar consolidative opacity. No pneumothorax, no pleural effusion. Nonenlarged heart. Osteopenia. Finalized by Brett Gaytan MD on 11/03/2024 2:35 PM Normal [facility] XR Chest PA and Lateralon XR CHEST 2 VWS History: . Bronchiectasis without complication (CMS-HCC); Pulmonary infiltrate present on computed tomography. Comparison: None Impression: Hyperinflated lungs suggestive of COPD. Biapical scarring. Ill-defined multifocal pulmonary parenchymal opacities throughout the lingula, possibly infectious, atelectasis is also possible. Correlate clinically. No lobar consolidative opacity. No pneumothorax, no pleural effusion. Nonenlarged heart. Osteopenia. Finalized by Brett Gaytan MD on 11/03/2024 2:35 PM SECTRAPABrett Jameson MD - 11/03/2024 XR CHEST 2 VWS History: . Bronchiectasis without complication (CMS-HCC); Pulmonary infiltrate present on computed tomography. Comparison: None Impression: Hyperinflated lungs suggestive of COPD. Biapical scarring. Ill-defined multifocal pulmonary parenchymal opacities throughout the lingula, possibly infectious, atelectasis is also possible. Correlate clinically. No lobar consolidative opacity. No pneumothorax, no pleural effusion. Nonenlarged heart. Osteopenia. Finalized by Brett Gaytan MD on 11/03/2024 2:35 PM [facility] Radiology Study observation (narrative) [facility] XR Chest PA and LateralOrder ed By: Brett Gaytan on 11-03-2024 [facility] Work Phone: [employer] 10-27-2024 Outside Records [id number] Normal [facility] CBC AND AUTO DIFFon 10-24-20 24 ABSOLUTE BASOPHIL 0.0 X10E9/L Normal 0.0-0.2 [facility] Comment on above: Performed By: #### P INR, 80642-5 #### [facility] ([id number]) [address] [place] [address] 73550 ABSOLUTE NEUTROPHIL 8.9 X10E9/L High 1.5-6.6 [facility] Comment on above: Performed By: #### P INR, 98431-8 #### [facility] ([id number]) [address] [place] [address] 25318 Basophils/100 WBC (Bld) 0.1 % Normal [facility] Comment on above: Performed By: #### P INR, 17591-1 #### [facility] ([id number]) [address] [place] [address] 61924 Eosinophils (Bld) [#/Vol] 0.0 10*3/uL Normal 0.0-0.4 [facility] Comment on above: Performed By: #### P INR, 60096-8 #### [facility] ([id number]) [address] [place] [address] 08191 Eosinophils/100 WBC (Bld) 0.0 % Normal [facility] Comment on above: Performed By: #### P INR, 44961-0 #### [facility] ([id number]) [address] [place] [address] 75381 Erythrocyte distribution width (RBC) [Ratio] 14.9 % Normal 11.5-15.0 [facility] Comment on above: Performed By: #### P INR, 23055-7 #### [facility] ([id number]) [address] [place] [address] 44132 Hematocrit (Bld) [Volume fraction] 32.1 % Low 35-47 [facility] Comment on above: Performed By: #### P INR, 86228-4 #### [facility] ([id number]) [address] [place] [address] 76633 Hemoglobin (Bld) [Mass/Vol] 11.0 g/dL Low 11.7-15.5 [facility] Comment on above: Performed By: #### P INR, 20347-7 #### [facility] ([id number]) [address] [place] [address] 91634 Lymphocytes (Bld) [#/Vol] 0.4 10*3/uL Low 1.0-3.5 [facility] Comment on above: Performed By: #### P INR, 88685-0 #### [facility] ([id number]) [address] [place] [address] 15903 Lymphocytes/100 WBC (Bld) 4.1 % Normal [facility] Comment on above: Performed By: #### P INR, 46513-8 #### [facility] ([id number]) [address] [place] [address] 66075 MCH (RBC) [Entitic mass] 30.7 pg Normal 27-34 [facility] Comment on above: Performed By: #### P INR, 83040-7 #### [facility] ([id number]) [address] [place] [address] 97257 MCHC (RBC) [Mass/Vol] 34.3 g/dL Normal 32-36 [facility] Comment on above: Performed By: #### P INR, 29683-1 #### [facility] ([id number]) [address] [place] [address] 35213 MCV (RBC) [Entitic vol] 90 fL Normal 80-100 [facility] Comment on above: Performed By: #### P INR, 07232-2 #### [facility] ([id number]) [address] [place] [address] 95600 Monocytes (Bld) [#/Vol] 0.2 10*3/uL Normal 0-0.9 [facility] Comment on above: Performed By: #### P INR, 22969-4 #### [facility] ([id number]) [address] [place] [address] 80327 Monocytes/100 WBC (Bld) 2.4 % Normal [facility] Comment on above: Performed By: #### P INR, 75276-3 #### [facility] ([id number]) [address] [place] [address] 02467 Neutrophils/100 WBC (Bld) 93.4 % Normal [facility] Comment on above: Performed By: #### P INR, 14648-7 #### [facility] ([id number]) [address] [place] [address] 78024 Platelet mean volume (Bld) [Entitic vol] 7.8 fL Normal 7-12 [facility] Comment on above: Performed By: #### P INR, 66039-6 #### [facility] ([id number]) [address] [place] [address] 71910 Platelets (Bld) [#/Vol] 277 10*3/uL Normal 150-450 [facility] Comment on above: Performed By: #### P INR, 05710-3 #### [facility] ([id number]) [address] [place] [address] 16201 RBC COUNT 3.59 X10E12/L Low 3.80-5.20 [facility] Comment on above: Performed By: #### P INR, 13589-4 #### [facility] ([id number]) [address] [place] [address] 70378 WBC (Bld) [#/Vol] 9.5 10*3/uL Normal 4.0-11.0 [facility] Comment on above: Performed By: #### P INR, 94752-1 #### [facility] ([id number]) [address] [place] [address] 12537 COMPREHENSIVE METABOLIC PANE [facility] 10-24-2024 Albumin [Mass/Vol] 3.1 g/dL Low 3.2-5.3 [facility] Comment on above: Performed By: #### P INR, 75887-5 #### [facility] ([id number]) [address] [place] [address] 52584 ALP [Catalytic activity/Vol] 60 U/L Normal 39-130 [facility] Comment on above: Performed By: #### P INR, 90678-8 #### [facility] ([id number]) [address] [place] [address] 33833 ALT [Catalytic activity/Vol] 55 U/L High 0-31 [facility] Comment on above: Performed By: #### P INR, 92467-9 #### [facility] ([id number]) [address] [place] [address] 84404 Anion gap [Moles/Vol] 10 mmol/L Normal 5-15 [facility] Comment on above: Performed By: #### P INR, 29083-8 #### [facility] ([id number]) [address] [place] [address] 49179 AST [Catalytic activity/Vol] 36 U/L Normal 0-41 [facility] Comment on above: Performed By: #### P INR, 08303-1 #### [facility] ([id number]) [address] [place] [address] 18972 Bilirubin [Mass/Vol] 0.4 mg/dL Normal 0.3-1.2 [facility] Comment on above: Performed By: #### P INR, 86960-4 #### [facility] ([id number]) [address] [place] [address] 68152 Calcium [Mass/Vol] 7.7 mg/dL Low 8.5-10.5 [facility] Comment on above: Performed By: #### P INR, 35099-6 #### [facility] ([id number]) [address] [place] [address] 65334 Chloride [Moles/Vol] 103 mmol/L Normal 98-109 [facility] Comment on above: Performed By: #### P INR, 66557-4 #### [facility] ([id number]) [address] [place] [address] 46705 CO2 [Moles/Vol] 25 mmol/L Normal 22-32 [facility] Comment on above: Performed By: #### P INR, 41457-2 #### [facility] ([id number]) [address] [place] [address] 70693 Creatinine [Mass/Vol] 0.94 mg/dL Normal 0.40-1.00 [facility] Comment on above: Result Comment: METH OD TRACEABLE TO IDMS STANDARD Performed By: #### P INR, 02751-8 #### [facility] ([id number]) [address] [place] [address] [place] [address] GFR/1.73 sq M.predicted among non-blacks MDRD (S/P/Bld) [Vol rate/Area] 65 mL/min/{1.73_m2} Normal >59 [facility] Comment on above: Result Comment: Reported eGFR is based on the CKD-EPI 2020 equation that does not use a race coefficient. Performed By: #### P INR, 50846-9 #### [facility] ([id number]) [address] [place] [address] 62386 Glucose [Mass/Vol] 206 mg/dL High 65-99 [facility] Comment on above: Performed By: #### P INR, 91300-5 #### [facility] ([id number]) [address] [place] [address] 71433 Potassium [Moles/Vol] 4.1 mmol/L Normal 3.5-5.0 [facility] Comment on above: Performed By: #### P INR, 17430-9 #### [facility] ([id number]) [address] [place] [address] 90890 Protein [Mass/Vol] 6.2 g/dL Normal 6.0-8.0 [facility] Comment on above: Performed By: #### P INR, 90668-3 #### [facility] ([id number]) [address] [place] [address] 88106 Sodium [Moles/Vol] 138 mmol/L Normal 134-146 [facility] Comment on above: Performed By: #### P INR, 10173-7 #### [facility] ([id number]) [address] [place] [address] 81012 Urea nitrogen [Mass/Vol] 29 mg/dL High 5-27 [facility] Comment on above: Performed By: #### P INR, 20349-8 #### [facility] ([id number]) [address] [place] [address] [place] [address] Glucose Glucometer (BldC) [M ass/Vol]on 10-24-2024 Glucose [Mass/Vol] 229 mg/dL High 65-99 [facility] MAGNESIUMon 10-24-2024 Magnesium [Mass/Vol] 1.8 mg/dL Normal 1.8-2.6 [facility] Comment on above: Performed By: #### P INR, 08916-3 #### [facility] ([id number]) [address] [place] [address] 97317 CBC AND AUTO DIFFon 10-23-20 ABSOLUTE BASOPHIL 0.0 X10E9/L Normal 0.0-0.2 [facility] Comment on above: Performed By: #### P INR, 13295-7 #### [facility] ([id number]) [address] [place] [address] 44819 ABSOLUTE NEUTROPHIL 11.0 X10E9/L High 1.5-6.6 [facility] Comment on above: Performed By: #### P INR, 36161-8 #### [facility] ([id number]) [address] [place] [address] 04410 Basophils/100 WBC (Bld) 0.3 % Normal [facility] Comment on above: Performed By: #### P INR, 79184-9 #### [facility] ([id number]) [address] [place] [address] 85051 Eosinophils (Bld) [#/Vol] 0.0 10*3/uL Normal 0.0-0.4 [facility] Comment on above: Performed By: #### P INR, 48144-6 #### [facility] ([id number]) [address] [place] [address] 44673 Eosinophils/100 WBC (Bld) 0.1 % Normal [facility] Comment on above: Performed By: #### P INR, 64053-8 #### [facility] ([id number]) [address] [place] [address] 75305 Erythrocyte distribution width (RBC) [Ratio] 14.8 % Normal 11.5-15.0 [facility] Comment on above: Performed By: #### P INR, 65688-9 #### [facility] ([id number]) [address] [place] [address] 10057 Hematocrit (Bld) [Volume fraction] 32.3 % Low 35-47 [facility] Comment on above: Performed By: #### P INR, 27886-9 #### [facility] ([id number]) [address] [place] [address] 53213 Hemoglobin (Bld) [Mass/Vol] 10.9 g/dL Low 11.7-15.5 [facility] Comment on above: Performed By: #### P INR, 84845-1 #### [facility] ([id number]) [address] [place] [address] 62327 Lymphocytes (Bld) [#/Vol] 0.4 10*3/uL Low 1.0-3.5 [facility] Comment on above: Performed By: #### P INR, 22700-4 #### [facility] ([id number]) [address] [place] [address] 61955 Lymphocytes/100 WBC (Bld) 3.4 % Normal [facility] Comment on above: Performed By: #### P INR, 66285-2 #### [facility] ([id number]) [address] [place] [address] 72139 MCH (RBC) [Entitic mass] 30.6 pg Normal 27-34 [facility] Comment on above: Performed By: #### P INR, 03487-1 #### [facility] ([id number]) [address] [place] [address] 60340 MCHC (RBC) [Mass/Vol] 33.9 g/dL Normal 32-36 [facility] Comment on above: Performed By: #### P INR, 05397-8 #### [facility] ([id number]) [address] [place] [address] 65292 MCV (RBC) [Entitic vol] 91 fL Normal 80-100 [facility] Comment on above: Performed By: #### P INR, 43474-6 #### [facility] ([id number]) [address] [place] [address] 29135 Monocytes (Bld) [#/Vol] 0.2 10*3/uL Normal 0-0.9 [facility] Comment on above: Performed By: #### P INR, 31745-3 #### [facility] ([id number]) [address] [place] [address] 26292 Monocytes/100 WBC (Bld) 1.8 % Normal [facility] Comment on above: Performed By: #### P INR, 72202-7 #### [facility] ([id number]) [address] [place] [address] 02956 Neutrophils/100 WBC (Bld) 94.4 % Normal [facility] Comment on above: Performed By: #### P INR, 53667-0 #### [facility] ([id number]) [address] [place] [address] 23368 Platelet mean volume (Bld) [Entitic vol] 8.0 fL Normal 7-12 [facility] Comment on above: Performed By: #### P INR, 25518-8 #### [facility] ([id number]) [address] [place] [address] 76127 Platelets (Bld) [#/Vol] 276 10*3/uL Normal 150-450 [facility] Comment on above: Performed By: #### P INR, 33998-8 #### [facility] ([id number]) [address] [place] [address] 00556 RBC COUNT 3.57 X10E12/L Low 3.80-5.20 [facility] Comment on above: Performed By: #### P INR, 05391-0 #### [facility] ([id number]) [address] [place] [address] 06162 WBC (Bld) [#/Vol] 11.7 10*3/uL High 4.0-11.0 [facility] Comment on above: Performed By: #### P INR, 82817-9 #### [facility] ([id number]) [address] [place] [address] 43085 COMPREHENSIVE METABOLIC PANE Kemal 10-23-2024 Albumin [Mass/Vol] 3.1 g/dL Low 3.2-5.3 [facility] Comment on above: Performed By: #### P INR, 49625-9 #### [facility] ([id number]) [address] [place] [address] 44366 ALP [Catalytic activity/Vol] 59 U/L Normal 39-130 [facility] Comment on above: Performed By: #### P INR, 61494-7 #### [facility] ([id number]) [address] [place] [address] 06179 ALT [Catalytic activity/Vol] 25 U/L Normal 0-31 [facility] Comment on above: Performed By: #### P INR, 54921-6 #### [facility] ([id number]) [address] [place] [address] 43868 Anion gap [Moles/Vol] 8 mmol/L Normal 5-15 [facility] Comment on above: Performed By: #### P INR, 00680-2 #### [facility] ([id number]) [address] [place] [address] 31039 AST [Catalytic activity/Vol] 26 U/L Normal 0-41 [facility] Comment on above: Performed By: #### P INR, 50599-0 #### [facility] ([id number]) [address] [place] [address] 42625 Bilirubin [Mass/Vol] 0.2 mg/dL Low 0.3-1.2 [facility] Comment on above: Performed By: #### P INR, 92841-5 #### [facility] ([id number]) [address] [place] [address] 54592 Calcium [Mass/Vol] 7.3 mg/dL Low 8.5-10.5 [facility] Comment on above: Performed By: #### P INR, 07407-5 #### [facility] ([id number]) [address] [place] [address] 31205 Chloride [Moles/Vol] 106 mmol/L Normal 98-109 [facility] Comment on above: Performed By: #### P INR, 31751-4 #### [facility] ([id number]) [address] [place] [address] 21506 CO2 [Moles/Vol] 23 mmol/L Normal 22-32 [facility] Comment on above: Performed By: #### P INR, 57480-3 #### [facility] ([id number]) [address] [place] [address] 26579 Creatinine [Mass/Vol] 0.95 mg/dL Normal 0.40-1.00 [facility] Comment on above: Result Comment: METH OD TRACEABLE TO IDMS STANDARD Performed By: #### P INR, 28715-1 #### [facility] ([id number]) [address] [place] [address] 26353 GFR/1.73 sq M.predicted among non-blacks MDRD (S/P/Bld) [Vol rate/Area] 64 mL/min/{1.73_m2} Normal >59 [facility] Comment on above: Result Comment: Reported eGFR is based on the CKD-EPI 2020 equation that does not use a race coefficient. Performed By: #### P INR, 72825-9 #### [facility] ([id number]) [address] [place] [address] 09347 Glucose [Mass/Vol] 252 mg/dL High 65-99 [facility] Comment on above: Performed By: #### P INR, 77779-5 #### [facility] ([id number]) [address] [place] [address] 35697 Potassium [Moles/Vol] 4.4 mmol/L Normal 3.5-5.0 [facility] Comment on above: Performed By: #### P INR, 64196-9 #### [facility] ([id number]) [address] [place] [address] 56421 Protein [Mass/Vol] 6.4 g/dL Normal 6.0-8.0 [facility] Comment on above: Performed By: #### P INR, 41078-8 #### [facility] ([id number]) [address] [place] [address] 30070 Sodium [Moles/Vol] 137 mmol/L Normal 134-146 [facility] Comment on above: Performed By: #### P INR, 87796-4 #### [facility] ([id number]) [address] [place] [address] 32250 Urea nitrogen [Mass/Vol] 24 mg/dL Normal 5-27 [facility] Comment on above: Performed By: #### P INR, 87227-0 #### [facility] ([id number]) [address] [place] [address] 79141 Calcium.ionized (Bld) [Moles /Vol]on 10-23-2024 PORTABLE ICA 4.1 mg/dL Low 4.5-5.3 [facility] Comment on above: Performed By: #### P INR, 16493-5 #### [facility] ([id number]) [address] [place] [address] 40985 PORTABLE ICA 3.8 mg/dL Low 4.5-5.3 [facility] Comment on above: Performed By: #### P INR, 23583-7 #### [facility] ([id number]) [address] [place] [address] 15012 PORTABLE ICA 4.0 mg/dL Low 4.5-5.3 [facility] Comment on above: Performed By: #### P INR, 36109-9 #### [facility] ([id number]) [address] [place] [address] 96306 Glucose Glucometer (BldC) [M ass/Vol]on 10-23-2024 Glucose [Mass/Vol] 144 mg/dL High 65-99 [facility] Glucose [Mass/Vol] 325 mg/dL High 65-99 [facility] Glucose [Mass/Vol] 200 mg/dL High 65-99 [facility] MAGNESIUMon 10-23-2024 Magnesium [Mass/Vol] 2.0 mg/dL Normal 1.8-2.6 [facility] Comment on above: Performed By: #### P INR, 27907-2 #### [facility] ([id number]) [address] [place] [address] 94358 CBC AND AUTO DIFFon 10-22-20 24 ABSOLUTE BASOPHIL 0.0 X10E9/L Normal 0.0-0.2 [facility] Comment on above: Performed By: #### C MOJGAN PATEL, 47479-9, 38270-5 #### [facility] ([id number]) [address] [place] [address] 54250 ABSOLUTE NEUTROPHIL 5.3 X10E9/L Normal 1.5-6.6 [facility] Comment on above: Performed By: #### C MOJGAN PATEL, , #### [facility] ([id number]) [address] [place] [address] 76993 Basophils/100 WBC (Bld) 0.3 % Normal [facility] Comment on above: Performed By: #### C BCA, CMP, , #### [facility] ([id number]) [address] [place] [address] 33928 Eosinophils (Bld) [#/Vol] 0.0 10*3/uL Normal 0.0-0.4 [facility] Comment on above: Performed By: #### C BCA, CMP, , #### [facility] ([id number]) [address] [place] [address] 53671 Eosinophils/100 WBC (Bld) 0.0 % Normal [facility] Comment on above: Performed By: #### C BCA, CMP, , #### [facility] ([id number]) [address] [place] [address] 12187 Erythrocyte distribution width (RBC) [Ratio] 14.6 % Normal 11.5-15.0 [facility] Comment on above: Performed By: #### C JORGE, CMP, , #### [facility] ([id number]) [address] [place] [address] 51472 Hematocrit (Bld) [Volume fraction] 31.8 % Low 35-47 [facility] Comment on above: Performed By: #### C BCA, CMP, , #### [facility] ([id number]) [address] [place] [address] 06476 Hemoglobin (Bld) [Mass/Vol] 10.9 g/dL Low 11.7-15.5 [facility] Comment on above: Performed By: #### C JORGE, CMP, , #### [facility] ([id number]) [address] [place] [address] 86724 Lymphocytes (Bld) [#/Vol] 0.4 10*3/uL Low 1.0-3.5 [facility] Comment on above: Performed By: #### C JORGE, CMP, , #### [facility] ([id number]) [address] [place] [address] 81269 Lymphocytes/100 WBC (Bld) 6.9 % Normal [facility] Comment on above: Performed By: #### C JORGE, CMP, , #### [facility] ([id number]) [address] [place] [address] 27957 MCH (RBC) [Entitic mass] 30.7 pg Normal 27-34 [facility] Comment on above: Performed By: #### C JORGE, CMP, , 13903-5 #### [facility] ([id number]) [address] [place] [address] 05594 MCHC (RBC) [Mass/Vol] 34.2 g/dL Normal 32-36 [facility] Comment on above: Performed By: #### C JORGE, CMP, , #### [facility] ([id number]) [address] [place] [address] 68211 MCV (RBC) [Entitic vol] 90 fL Normal 80-100 [facility] Comment on above: Performed By: #### C BCA, CMP, , #### [facility] ([id number]) [address] [place] [address] 50138 Monocytes (Bld) [#/Vol] 0.1 10*3/uL Normal 0-0.9 [facility] Comment on above: Performed By: #### C BCA, CMP, , 86063-7 #### [facility] ([id number]) [address] [place] [address] 40859 Monocytes/100 WBC (Bld) 2.1 % Normal [facility] Comment on above: Performed By: #### C BCA, CMP, , #### [facility] ([id number]) [address] [place] [address] 50099 Neutrophils/100 WBC (Bld) 90.7 % Normal [facility] Comment on above: Performed By: #### C BCA, CMP, , #### [facility] ([id number]) [address] [place] [address] 18564 Platelet mean volume (Bld) [Entitic vol] 7.6 fL Normal 7-12 [facility] Comment on above: Performed By: #### C BCA, CMP, , #### [facility] ([id number]) [address] [place] [address] 11821 Platelets (Bld) [#/Vol] 230 10*3/uL Normal 150-450 [facility] Comment on above: Performed By: #### C BCA, CMP, , 30269-5 #### [facility] ([id number]) [address] [place] [address] 57535 RBC COUNT 3.54 X10E12/L Low 3.80-5.20 [facility] Comment on above: Performed By: #### C BCA, CMP, , 26838-4 #### [facility] ([id number]) [address] [place] [address] 47467 WBC (Bld) [#/Vol] 5.8 10*3/uL Normal 4.0-11.0 [facility] Comment on above: Performed By: #### C BCA, CMP, , 56670-9 #### [facility] ([id number]) [address] [place] [address] 23035 COMPREHENSIVE METABOLIC PANE Kemal 10-22-2024 Albumin [Mass/Vol] 2.9 g/dL Low 3.2-5.3 [facility] Comment on above: Performed By: #### C BCA, CMP, , #### [facility] ([id number]) [address] [place] [address] 49951 ALP [Catalytic activity/Vol] 62 U/L Normal 39-130 [facility] Comment on above: Performed By: #### C BCA, CMP, , #### [facility] ([id number]) [address] [place] [address] 33211 ALT [Catalytic activity/Vol] 12 U/L Normal 0-31 [facility] Comment on above: Performed By: #### C BCA, CMP, , #### [facility] ([id number]) [address] [place] [address] 24749 Anion gap [Moles/Vol] 10 mmol/L Normal 5-15 [facility] Comment on above: Performed By: #### C BCA, CMP, , #### [facility] ([id number]) [address] [place] [address] 65937 AST [Catalytic activity/Vol] 14 U/L Normal 0-41 [facility] Comment on above: Performed By: #### C BCA, CMP, , #### [facility] ([id number]) [address] [place] [address] 15028 Bilirubin [Mass/Vol] 0.3 mg/dL Normal 0.3-1.2 [facility] Comment on above: Performed By: #### C BCA, CMP, 56386-9, 25286-9 #### [facility] ([id number]) [address] [place] [address] 40601 Calcium [Mass/Vol] 6.4 mg/dL Critically low 8.5-10.5 [facility] Comment on above: Performed By: #### C BCA, CMP, , #### [facility] ([id number]) [address] [place] [address] 70692 Chloride [Moles/Vol] 104 mmol/L Normal 98-109 [facility] Comment on above: Performed By: #### C BCA, CMP, , 78727-6 #### [facility] ([id number]) [address] [place] [address] 59970 CO2 [Moles/Vol] 22 mmol/L Normal 22-32 [facility] Comment on above: Performed By: #### C BCA, CMP, , 30748-5 #### [facility] ([id number]) [address] [place] [address] 58853 Creatinine [Mass/Vol] 0.86 mg/dL Normal 0.40-1.00 [facility] Comment on above: Result Comment: METH OD TRACEABLE TO IDMS STANDARD Performed By: #### C BCA, CMP, , 99754-4 #### [facility] ([id number]) [address] [place] [address] 82077 GFR/1.73 sq M.predicted among non-blacks MDRD (S/P/Bld) [Vol rate/Area] 72 mL/min/{1.73_m2} Normal >59 [facility] Comment on above: Result Comment: Reported eGFR is based on the CKD-EPI 2020 equation that does not use a race coefficient. Performed By: #### C BCA, CMP, , #### [facility] ([id number]) [address] [place] [address] 01472 Glucose [Mass/Vol] 260 mg/dL High 65-99 [facility] Comment on above: Performed By: #### C BCA, CMP, , #### [facility] ([id number]) [address] [place] [address] 05323 Potassium [Moles/Vol] 3.8 mmol/L Normal 3.5-5.0 [facility] Comment on above: Performed By: #### C BCA, CMP, , #### [facility] ([id number]) [address] [place] [address] 39143 Protein [Mass/Vol] 6.2 g/dL Normal 6.0-8.0 [facility] Comment on above: Performed By: #### C BCA, CMP, , #### [facility] ([id number]) [address] [place] [address] 66078 Sodium [Moles/Vol] 136 mmol/L Normal 134-146 [facility] Comment on above: Performed By: #### C BCA, CMP, , 47325-9 #### [facility] ([id number]) [address] [place] [address] 10495 Urea nitrogen [Mass/Vol] 14 mg/dL Normal 5-27 [facility] Comment on above: Performed By: #### C BCA, CMP, , 20177-0 #### [facility] ([id number]) [address] [place] [address] 09999 Calcium.ionized (Bld) [Moles /Vol]on 10-22-2024 [facility] 3.4 mg/dL Low 4.5-5.3 [facility] Comment on above: Performed By: #### C BCA, CMP, 51669-0, 82563-6 #### [facility] ([id number]) [address] [place] [address] 49579 PORTABLE ICA 3.5 mg/dL Low 4.5-5.3 [facility] Comment on above: Performed By: #### C BCA, CMP, 87856-0, 50090-7 #### [facility] ([id number]) [address] [place] [address] 61384 FERRITINon 10-22-2024 Ferritin [Mass/Vol] 41 ng/mL Normal 11-307 [facility] Comment on above: Performed By: #### P INR, 47544-1 #### [facility] ([id number]) [address] [place] [address] 60392 Folate [Mass/Vol]on 10-22-20 24 FOLIC ACID 15.5 ng/mL Normal >5.8 [facility] Comment on above: Result Comment: NEW REFERENCE RANGE Performed By: #### P INR, 00535-9 #### [facility] ([id number]) [address] [place] [address] 43767 Glucose Glucometer (BldC) [M ass/Vol]on 10-22-2024 Glucose [Mass/Vol] 194 mg/dL High 65-99 [facility] Glucose [Mass/Vol] 269 mg/dL High 65-99 [facility] Glucose [Mass/Vol] 305 mg/dL High 65-99 [facility] IRON PROFILEon 10-22-2024 Iron [Mass/Vol] 45 ug/dL Low 50-170 [facility] Comment on above: Performed By: #### P INR, 04134-7 #### [facility] ([id number]) [address] [place] [address] 04795 IRON BINDING 301 ug/dL Normal 250-425 [facility] Comment on above: Performed By: #### P INR, 34440-2 #### [facility] ([id number]) [address] [place] [address] 10505 IRON SATURATION 15 % SATURATION Normal 15-50 [facility] Comment on above: Performed By: #### P INR, 12022-6 #### [facility] ([id number]) [address] [place] [address] 86631 Lactate (P dannie) [Moles/Vol]o n 10-22-2024 Lactate [Moles/Vol] 3.9 mmol/L High 0.4-2.0 [facility] Comment on above: Performed By: #### P INR, 94131-0 #### [facility] ([id number]) [address] [place] [address] 94550 LACTATE W/REFLEX 2.1 mmol/L High 0.4-2.0 [facility] Comment on above: Performed By: #### C JORGE, CMP, 34289-6, 29898-6 #### [facility] ([id number]) [address] [place] [address] 66425 Lactate [Moles/Vol] 2.2 mmol/L High 0.4-2.0 [facility] Comment on above: Performed By: #### C JORGE CMP, 07869-4, 05543-9 #### [facility] ([id number]) [address] [place] [address] 24494 MAGNESIUMon 10-22-2024 Magnesium [Mass/Vol] 2.2 mg/dL Normal 1.8-2.6 [facility] Comment on above: Performed By: #### P INR, 75803-1 #### [facility] ([id number]) [address] [place] [address] 18369 Magnesium [Mass/Vol] 1.7 mg/dL Low 1.8-2.6 [facility] Comment on above: Performed By: #### C BCA, CMP, 39494-8, #### [facility] ([id number]) [address] [place] [address] 80887 Magnesium Ionized ISE (Bld) [Moles/Vol]on 10-22-2024 Magnesium [Moles/Vol] 0.64 mmol/L Normal 0.45-0.74 [facility] Comment on above: Result Comment: NEW REFERENCE RANGE Performed By: #### P INR, 15382-6 #### [facility] ([id number]) [address] [place] [address] 30352 PHOSPHORUSon 10-22-2024 Phosphate [Mass/Vol] 4.2 mg/dL Normal 2.4-4.9 [facility] Comment on above: Performed By: #### P INR, 15109-9 #### [facility] ([id number]) [address] [place] [address] 29833 POTASSIUMon 10-22-2024 Potassium [Moles/Vol] 4.0 mmol/L Normal 3.5-5.0 [facility] Comment on above: Performed By: #### P INR, 93587-0 #### [facility] ([id number]) [address] [place] [address] 07625 Potassium [Moles/Vol] 3.6 mmol/L Normal 3.5-5.0 [facility] Comment on above: Performed By: #### P INR, 69758-8 #### [facility] ([id number]) [address] [place] [address] 42480 THYROID PROFILEon 10-22-2024 Free T4 [Mass/Vol] 1.33 ng/dL Normal 0.61-1.60 [facility] Comment on above: Result Comment: NEW REFERENCE RANGE FOR PEDIATRIC PATIENTS Performed By: #### P INR, 67123-3 #### [facility] ([id number]) [address] [place] [address] 79161 TSH 0.19 uIU/mL Low 0.49-4.67 [facility] Comment on above: Result Comment: NEW REFERENCE RANGE FOR PEDIATRIC PATIENTS Performed By: #### P INR, 22291-4 #### [facility] ([id number]) [address] [place] [address] 22602 VITAMIN B12on 10-22-2024 Cobalamin (Vitamin B12) [Mass/Vol] 144 pg/mL Low 180-914 [facility] Comment on above: Performed By: #### P INR, 79247-0 #### [facility] ([id number]) [address] [place] [address] 82485 Vitamin D+Metabolites [Mass/ Vol]on 10-22-2024 VITAMIN D 25 HYD TOT 11.7 ng/mL Low 30-100 [facility] Comment on above: Result Comment: Vitamin D status 25 [place] Vitamin D Deficiency <20 ng/mL Insufficiency 20-29 ng/mL Sufficiency 30-100 ng/mL Toxicity >100 ng/mL NOTE: A pediatric reference range has not been established by the crane operator of this kit. The [employer] recommends a Vitamin D level of = or >20ng/mL in infants and children. Performed By: #### P INR, 79021-1 #### [facility] ([id number]) [address] [place] [address] 39618 BASIC METABOLIC PANLon 10-21 Anion gap [Moles/Vol] 12 mmol/L Normal 5-15 [facility] Comment on above: Performed By: #### C JORGE, BMP, 01087-0, THYR #### [facility] ([id number]) [address], [address] [place] [address] Calcium [Mass/Vol] 7.1 mg/dL Low 8.5-10.5 [facility] Comment on above: Performed By: #### C BCA, BMP, 73975-6, THYR #### [facility] ([id number]) [address], [address] [place] [address] Chloride [Moles/Vol] 101 mmol/L Normal 98-109 [facility] Comment on above: Performed By: #### C BCA, BMP, 81458-9, THYR #### [facility] ([id number]) [address], [address] [place] [address] CO2 [Moles/Vol] 27 mmol/L Normal 22-32 [facility] Comment on above: Performed By: #### C JORGE, BMP, 09929-5, THYR #### [facility] ([id number]) [address], [address] [place] [address] Creatinine [Mass/Vol] 0.92 mg/dL Normal 0.40-1.00 [facility] Comment on above: Result Comment: METH OD TRACEABLE TO IDMS STANDARD Performed By: #### C JORGE, BMP, 81355-0, THYR #### [facility] ([id number]) [address], [address] [place] [address] GFR/1.73 sq M.predicted among non-blacks MDRD (S/P/Bld) [Vol rate/Area] 67 mL/min/{1.73_m2} Normal >59 [facility] Comment on above: Result Comment: Reported eGFR is based on the CKD-EPI 2020 equation that does not use a race coefficient. Performed By: #### C BCA, BMP, 70921-7, THYR #### [facility] ([id number]) [address], [address] [place] [address] Glucose [Mass/Vol] 163 mg/dL High 65-99 [facility] Comment on above: Performed By: #### C BCA, BMP, 55174-0, THYR #### [facility] ([id number]) [address], [address] [place] [address] Potassium [Moles/Vol] 3.7 mmol/L Normal 3.5-5.0 [facility] Comment on above: Performed By: #### C DMITRY PATEL, 54800-0, THYR #### [facility] ([id number]) [address], [address] [place] [address] Sodium [Moles/Vol] 140 mmol/L Normal 134-146 [facility] Comment on above: Performed By: #### C JORGE BMP, 94528-6, THYR #### [facility] ([id number]) [address], [address] [place] [address] Urea nitrogen [Mass/Vol] 12 mg/dL Normal 5- [facility] Comment on above: Performed By: #### C DMITRY PATEL, 63190-2, THYR #### [facility] ([id number]) [address], [address] [place] [address] BLOOD CULTUREon 10-21-2024 Bacteria identified Aer cx Nom (Bld) CULTURE RESULTS NO GROWTH 5 DAYS Normal [facility] Bacteria identified Aer cx Nom (Bld) CULTURE RESULTS NO GROWTH 5 DAYS Normal [facility] BLOOD UREA NITROGENon 2023 Urea nitrogen [Mass/Vol] 14 mg/dL Normal - [facility] Comment on above: Performed By: #### C JORGE CMP, 11493-9, 84325-7 #### [facility] ([id number]) [address] [place] [address] CALCIUMon 10-21-2024 Calcium [Mass/Vol] 6.5 mg/dL Critically low 8.5-10.5 [facility] Comment on above: Performed By: #### C JORGE, CMP, 39761-3, 18060-9 #### [facility] ([id number]) [address] [place] [address] [place]ON DIOXIDEon 10-21-2024 CO2 [Moles/Vol] 21 mmol/L Low 22-32 [facility] Comment on above: Performed By: #### C JORGE, [facility], 76149-7, 58355-4 #### [facility] ([id number]) [address] [facility] [place] [address] CBC AND AUTO DIFFon 10-21-20 24 ABSOLUTE BASOPHIL 0.1 X10E9/L Normal 0.0-0.2 [facility] Comment on above: Performed By: #### C BCA, BMP, 36282-5, THYR #### [facility] ([id number]) [address], [address] [place] [address] ABSOLUTE NEUTROPHIL 4.5 X10E9/L Normal 1.5-6.6 [facility] Comment on above: Performed By: #### C BCA, BMP, 33100-1, THYR #### [facility] ([id number]) [address], [address] [place] [address] Basophils/100 WBC (Bld) 1.3 % Normal [facility] Comment on above: Performed By: #### C BCA, BMP, 10362-4, THYR #### [facility] ([id number]) [address], [address] [place] [address] Eosinophils (Bld) [#/Vol] 0.2 10*3/uL Normal 0.0-0.4 [facility] Comment on above: Performed By: #### C BCA, BMP, 90180-9, THYR #### [facility] ([id number]) [address], [address] [place] [address] Eosinophils/100 WBC (Bld) 2.8 % Normal [facility] Comment on above: Performed By: #### C BCA, BMP, 63999-0, THYR #### [facility] ([id number]) [address], [address] [place] [address] Erythrocyte distribution width (RBC) [Ratio] 14.8 % Normal 11.5-15.0 [facility] Comment on above: Performed By: #### C DMITRY PATEL, 71662-1, THYR #### [facility] ([id number]) [address], [address] [place] [address] Hematocrit (Bld) [Volume fraction] 41.9 % Normal 35-47 [facility] Comment on above: Performed By: #### C DMITRY PATEL, 33587-4, THYR #### [facility] ([id number]) [address], [facility] [address] [place] [address] Hemoglobin (Bld) [Mass/Vol] 14.2 g/dL Normal 11.7-15.5 [facility] Comment on above: Performed By: #### C DMITRY PATEL, 00344-9, THYR #### [facility] ([id number]) [address], [facility] [address] [place] [address] Lymphocytes (Bld) [#/Vol] 1.0 10*3/uL Normal 1.0-3.5 [facility] Comment on above: Performed By: #### C DMITRY PATEL, 85978-1, THYR #### [facility] ([id number]) [address], [facility] [address] [place] [address] Lymphocytes/100 WBC (Bld) 16.2 % Normal [facility] Comment on above: Performed By: #### C DMITRY PATEL, 69778-9, THYR #### [facility] ([id number]) [address], [address] [place] [address] MCH (RBC) [Entitic mass] 30.4 pg Normal 27-34 [facility] Comment on above: Performed By: #### C DMITRY PATEL, 01418-1, THYR #### [facility] ([id number]) [address], [address] [place] [address] MCHC (RBC) [Mass/Vol] 34.0 g/dL Normal 32-36 [facility] Comment on above: Performed By: #### C DMITRY PATEL, 99098-6, THYR #### [facility] ([id number]) [address], [facility] [address] [place] [address] MCV (RBC) [Entitic vol] 90 fL Normal 80-100 [facility] Comment on above: Performed By: #### C DMITRY PATEL, 90266-2, THYR #### [facility] ([id number]) [address], [facility] [address] [place] [address] Monocytes (Bld) [#/Vol] 0.4 10*3/uL Normal 0-0.9 [facility] Comment on above: Performed By: #### DMITRY Blackmon BCA, 06250-0, THYR #### [facility] ([id number]) [address], [address] [place] [address] Monocytes/100 WBC (Bld) 6.0 % Normal [facility] Comment on above: Performed By: #### DMITRY Blackmon BCA, 96364-4, THYR #### [facility] ([id number]) [address], [address] [place] [address] Neutrophils/100 WBC (Bld) 73.7 % Normal [facility] Comment on above: Performed By: #### DMITRY Blackmon BCA, 04765-7, THYR #### [facility] ([id number]) [address], [address] [place] [address] Platelet mean volume (Bld) [Entitic vol] 7.6 fL Normal 7-12 [facility] Comment on above: Performed By: #### C DMITRY PATEL, 50190-5, THYR #### [facility] ([id number]) [address], [address] [place] [address] Platelets (Bld) [#/Vol] 297 10*3/uL Normal 150-450 [facility] Comment on above: Performed By: #### C JORGE BMP, 52033-0, THYR #### [facility] ([id number]) [address], [address] [place] [address] RBC COUNT 4.68 X10E12/L Normal 3.80-5.20 [facility] Comment on above: Performed By: #### C JORGE BMP, 01555-6, THYR #### [facility] ([id number]) [address], [address] [place] [address] WBC (Bld) [#/Vol] 6.1 10*3/uL Normal 4.0-11.0 [facility] Comment on above: Performed By: #### C DMITRY PATEL, 88006-8, THYR #### [facility] ([id number]) [address], [address] [place] [address] CHLORIDEon 10-21-2024 Chloride [Moles/Vol] 101 mmol/L Normal 98-109 [facility] Comment on above: Performed By: #### C JORGE CMP, 55523-1, 48056-0 #### [facility] ([id number]) [address] [place] [address] CREATININEon 10-21-2024 Creatinine [Mass/Vol] 1.22 mg/dL High 0.40-1.00 [facility] Comment on above: Result Comment: METH OD TRACEABLE TO IDMS STANDARD Performed By: #### C JORGE, CMP, 64950-0, 76737-9 #### [facility] ([id number]) [address] [place] [address] GFR/1.73 sq M.predicted among non-blacks MDRD (S/P/Bld) [Vol rate/Area] 47 mL/min/{1.73_m2} Low >59 [facility] Comment on above: Result Comment: Reported eGFR is based on the CKD-EPI 2020 equation that does not use a race coefficient. Performed By: #### C MOJGAN PATEL, 46733-1, 18618-6 #### [facility] ([id number]) [address] [place] [address] CT CTA CHESTon 10-21-[address] CTA CHEST CTA CHEST HISTORY: Left chest pain. COMPARISON: Chest CT 04/25/2024 TECHNIQUE: 100 mL of Omnipaque 350 nonionic contrast injected intravenously without reported complication. Thin section axial images of the thorax obtained with multiplanar reformatted 3-D MIP images of the thorax. Automated exposure control was utilized. FINDINGS: Normal caliber of the thoracic aorta with severe atherosclerotic disease. Pulmonary artery is normal in caliber without definitive embolic filling defects to the subsegmental level. Heart size is within normal lives. No pericardial effusion. Moderate to severe coronary artery calcifications. No significant mediastinal lymph node enlargement. Small left pleural effusion with consolidative changes involving the lingula. Severe centrilobular emphysema with apical predominance. No pneumothorax. Occlusion of the central lingular airways. Multifocal occlusions involving right lower lobe airways also noted. No chest wall lymphadenopathy. Left shoulder prosthesis. Calcifications are noted within both renal sylwia, vascular versus nephrolithiasis. No acute osseous abnormality. Significant degenerative changes involving the visible cervical spine. IMPRESSION: * No acute pulmonary embolism. * Consolidative changes in the lingula may represent pneumonia and/or postobstructive atelectasis. * Small left pleural effusion. * Additional incidental/chronic findings as described. All CT scans at this facility use dose modulation, iterative reconstruction, and/or weight based dosing when appropriate to reduce radiation dose to as low as reasonably achievable. Finalized by Dav Montero MD on 10/21/2024 11:11 AM Normal [facility] GLUCOSEon 10-21-2024 Glucose [Mass/Vol] 435 mg/dL Critically high 65-99 [facility] Comment on above: Performed By: #### C MOJGAN PATEL, 28276-1, 75838-7 #### [facility] ([id number]) [address] [place] [address] Glucose Glucometer (BldC) [M ass/Vol]on 10-21-2024 Glucose [Mass/Vol] 332 mg/dL High 65-99 [facility] LIPASEon 10-21-2024 Lipase [Catalytic activity/Vol] 13 U/L Normal 11-82 [facility] Comment on above: Performed By: #### C MOJGAN PATEL, 28660-0, 16339-1 #### [facility] ([id number]) [address] [place] [address] LOWER RESPIRATORY CULTUREon 10-21-2024 Bacteria identified Respiratory culture Nom (Sput) GRAM STAIN 1 to 9 WHITE BLOOD CELLS/LPF 1 to 9 SQUAMOUS EPITHELIAL CELLS/LPF 0 CILIATED EPITHELIAL CELLS/LPF RARE GRAM POSITIVE COCCI IN CLUSTERS CULTURE RESULTS NORMAL ORAL SANA Normal [facility] Comment on above: Performed By: #### P INR, 33114-0 #### [facility] ([id number]) [address] [place] [address] Lactate (P dannie) [Moles/Vol]o n 10-21-2024 LACTATE W/REFLEX 4.7 mmol/L Critically high 0.4-2.0 [facility] Comment on above: Performed By: #### C MOJGAN PATEL, 20944-4, 26967-9 #### [facility] ([id number]) [address] [place] [address] Lactate [Moles/Vol] 4.5 mmol/L Critically high 0.4-2.0 [facility] Comment on above: Performed By: #### C JORGE, CMP, 78136-4, 83492-2 #### [facility] ([id number]) [address] [place] [address] LACTATE W/REFLEX 2.1 mmol/L High 0.4-2.0 [facility] Comment on above: Performed By: #### C JORGE CMP, 85140-7, 62132-2 #### [facility] ([id number]) [address] [place] [address] MAGNESIUMon 10-21-2024 Magnesium [Mass/Vol] 1.7 mg/dL Low 1.8-2.6 [facility] Comment on above: Performed By: #### C MOJGAN PATEL, 35049-4, 96773-6 #### [facility] ([id number]) [address] [place] [address] Natriuretic peptide B [Mass/ Vol]on 10-21-2024 Natriuretic peptide B (Bld) [Mass/Vol] 117 pg/mL High <100.0 [facility] Comment on above: Performed By: #### C MOJGAN PATEL, , 63920-1 #### [facility] ([id number]) [address] [place] [address] PHOSPHORUSon 10-21-2024 Phosphate [Mass/Vol] 3.8 mg/dL Normal 2.4-4.9 [facility] Comment on above: Performed By: #### C MOJGAN PATEL, , 29695-8 #### [facility] ([id number]) [address] [place] [address] POTASSIUMon 10-21-2024 Potassium [Moles/Vol] 4.1 mmol/L Normal 3.5-5.0 [facility] Comment on above: Performed By: #### C MOJGAN PATEL, 13763-9, 13966-8 #### [facility] ([id number]) [address] [place] [address] Parathyrin.intact [Mass/Vol] on 10-21-2024 PTH INTACT 16 pg/mL Normal [facility] Comment on above: Performed By: #### C MOJGAN PATEL, , 37686-4 #### [facility] ([id number]) [address] [place] [address] SODIUMon 10-21-2024 Sodium [Moles/Vol] 134 mmol/L Normal 134-146 [facility] Comment on above: Performed By: #### C BCA, CMP, 71654-7, 92950-8 #### [facility] ([id number]) [address] [place] [address] Troponin I.cardiac High sens itivity method [Mass/Vol]on 10-21-2024 1 HOUR TROP I, HIGH SENSITIVITY 5 ng/L Normal <16 [facility] Comment on above: Performed By: #### C BCA, CMP, 14573-4, 94853-0 #### [facility] ([id number]) [address] [place] [address] TROPONIN I, HIGH SENSITIVITY 7 ng/L Normal <16 [facility] Comment on above: Performed By: #### C BCA, BMP, 91839-9, THYR #### [facility] ([id number]) [address] [place] [address], [address] [place] [address] URINE CULTUREon 10-21-2024 Bacteria identified Cx Nom (U) CULTURE RESULTS NO GROWTH AT <1000 CFU/mL Normal [facility] Comment on above: Performed By: #### P INR, 87590-3 #### [facility] ([id number]) [address] [place] [address] Vitamin D+Metabolites [Mass/ Vol]on 10-21-2024 VITAMIN D 25 HYD TOT 13.5 ng/mL Low 30-100 [facility] Comment on above: Result Comment: Vitamin D status 25 [place] Vitamin D Deficiency <20 ng/mL Insufficiency 20-29 ng/mL Sufficiency 30-100 ng/mL Toxicity >100 ng/mL NOTE: A pediatric reference range has not been established by the crane operator of this kit. The [employer] recommends a Vitamin D level of = or >20ng/mL in infants and children. Performed By: #### C BCA, [facility], 27579-1, 50652-2 #### [facility] ([id number]) [address] [place] [address], [place] [address] XR CHEST 1 VWon 10-21-2024 XR CHEST 1 VW XR CHEST 1 VW XR CHEST 1 VW CLINICAL HISTORY: Rib pain lung cancer COMPARISON: 09/27/2024 1 view obtained. FINDINGS: Mediastinum normal. Hilar regions symmetric. Heart normal size. Right lung is in a very subtle airspace density in the lingula which could represent mild pneumonia. If there is concern for rib lesions bone scan or CT scan would be more sensitive for detection. IMPRESSION: * Very subtle airspace density in the lingula which could represent mild pneumonia. * If there is concern for rib lesions, bone scan or CT scan would be more sensitive for detection. Finalized by Pete Yeager MD on 10/21/2024 10:13 AM Normal [facility] Consultation/Specialist Note on 10-18-2024 Consultation/Special ist Note [id number]#1.00OTGTIFF [facility] Outside Recordson 10-14-2024 Outside Records [id number]#1.00OTGTIFF [facility] Outside Records [id number]#1.00OTGTIFF [facility] CT Chest WO contraston 10-[address] [facility] [address] chest wo conon 10-06-2024 CT chest wo con [facility] Main [place] [id number] CT Scan Report Signed Patient: Jazzmine Patel MR#: [id number] 779 : 1950 Acct:[id number] Age/Sex: 73 / F ADM Date: 10/06/24 Loc: Room: Type: [facility] Attending Dr: Urszula Etienne MD Copies to: [...] excluded. Impression dictated by: Jose Kimbrough Jr., D.OSee10/06/2024 10:44 AM Dictation Location: [place] [address] Transcribed By: [facility] 10/06/24 1044 Dictated By: Jose Kimbrough Jr, DO 10/06/24 1041 Signed By: 10/06/24 1044 Normal [facility] BASIC METABOLIC PANLon 09-27 Anion gap [Moles/Vol] 13 mmol/L Normal 5-15 [facility] Comment on above: Performed By: #### C BCA, BMP, 05096-3, THYR #### [facility] ([id number]) [address], [address] [place] [address] Calcium [Mass/Vol] 6.7 mg/dL Critically low 8.5-10.5 [facility] Comment on above: Performed By: #### C BCA, BMP, 73927-4, THYR #### [facility] ([id number]) [address] [place] [address] Chloride [Moles/Vol] 101 mmol/L Normal 98-109 [facility] Comment on above: Performed By: #### C JORGE, DMITRY, 84521-6, THYR #### [facility] ([id number]) [address], [address] [place] [address] CO2 [Moles/Vol] 28 mmol/L Normal 22-32 [facility] Comment on above: Performed By: #### C DMITRY PATEL, 83440-7, THYR #### [facility] ([id number]) [address], [address] [place] [address] Creatinine [Mass/Vol] 0.89 mg/dL Normal 0.40-1.00 [facility] Comment on above: Result Comment: METH OD TRACEABLE TO IDMS STANDARD Performed By: #### C DMITRY PATEL, 94314-7, THYR #### [facility] ([id number]) [address], [address] [place] [address] GFR/1.73 sq M.predicted among non-blacks MDRD (S/P/Bld) [Vol rate/Area] 69 mL/min/{1.73_m2} Normal >59 [facility] Comment on above: Result Comment: Reported eGFR is based on the CKD-EPI 2020 equation that does not use a race coefficient. Performed By: #### C DMITRY PATEL, 27501-8, THYR #### [facility] ([id number]) [address], [address] [place] [address] Glucose [Mass/Vol] 147 mg/dL High 65-99 [facility] Comment on above: Performed By: #### C JORGE, DMITRY, 32396-2, THYR #### [facility] ([id number]) [address], [address] [place] [address] Potassium [Moles/Vol] 3.8 mmol/L Normal 3.5-5.0 [facility] Comment on above: Performed By: #### C DMITRY PATEL, 87079-0, THYR #### [facility] ([id number]) [address], [address] [place] [address] Sodium [Moles/Vol] 142 mmol/L Normal 134-146 [facility] Comment on above: Performed By: #### C DMITRY PATEL, 83901-0, THYR #### [facility] ([id number]) [address], [facility] [address] [place] [address] Urea nitrogen [Mass/Vol] 18 mg/dL Normal 5-27 [facility] Comment on above: Performed By: #### C DMITRY PATEL, 29276-5, THYR #### [facility] ([id number]) [address], [address] [place] [address] CBC AND AUTO DIFFon 09-27-20 24 ABSOLUTE BASOPHIL 0.1 X10E9/L Normal 0.0-0.2 [facility] Comment on above: Performed By: #### C DMITRY PATEL, 88774-4, THYR #### [facility] ([id number]) [address], [address] [place] [address] ABSOLUTE NEUTROPHIL 5.3 X10E9/L Normal 1.5-6.6 [facility] Comment on above: Performed By: #### C DMITRY PATEL, 78211-3, THYR #### [facility] ([id number]) [address], [address] [place] [address] Basophils/100 WBC (Bld) 1.7 % Normal [facility] Comment on above: Performed By: #### C DMITRY PATEL, 61387-7, THYR #### [facility] ([id number]) [address], [address] [place] [address] Eosinophils (Bld) [#/Vol] 0.1 10*3/uL Normal 0.0-0.4 [facility] Comment on above: Performed By: #### C DMITRY PATEL, 68826-5, THYR #### [facility] ([id number]) [address], [address] [place] [address] Eosinophils/100 WBC (Bld) 1.5 % Normal [facility] Comment on above: Performed By: #### C DMITRY PATEL, 25066-5, THYR #### [facility] ([id number]) [address], [facility] [address] [place] [address] Erythrocyte distribution width (RBC) [Ratio] 14.3 % Normal 11.5-15.0 [facility] Comment on above: Performed By: #### C DMITRY PATEL, 23988-4, THYR #### [facility] ([id number]) [address], [address] [place] [address] Hematocrit (Bld) [Volume fraction] 37.3 % Normal 35-47 [facility] Comment on above: Performed By: #### DMITRY Blackmon BCA, 13981-0, THYR #### [facility] ([id number]) [address], [address] [place] [address] Hemoglobin (Bld) [Mass/Vol] 12.5 g/dL Normal 11.7-15.5 [facility] Comment on above: Performed By: #### DMITRY Blackmon BCA, 53011-0, THYR #### [facility] ([id number]) [address], [address] [place] [address] Lymphocytes (Bld) [#/Vol] 1.1 10*3/uL Normal 1.0-3.5 [facility] Comment on above: Performed By: #### C DMITRY PATEL, 24273-3, THYR #### [facility] ([id number]) [address], [address] [place] [address] Lymphocytes/100 WBC (Bld) 15.4 % Normal [facility] Comment on above: Performed By: #### C DMITRY PATEL, 47568-9, THYR #### [facility] ([id number]) [address], [facility] [address] [place] [address] MCH (RBC) [Entitic mass] 30.4 pg Normal 27-34 [facility] Comment on above: Performed By: #### C DMITRY PATEL, 36510-4, THYR #### [facility] ([id number]) [address], [facility] [address] [place] [address] MCHC (RBC) [Mass/Vol] 33.6 g/dL Normal 32-36 [facility] Comment on above: Performed By: #### C DMITRY PATEL, 93399-3, THYR #### [facility] ([id number]) [address], [facility] [address] [place] [address] MCV (RBC) [Entitic vol] 91 fL Normal 80-100 [facility] Comment on above: Performed By: #### DMITRY Blackmon BCA, 30198-4, THYR #### [facility] ([id number]) [address], [facility] [address] [place] [address] Monocytes (Bld) [#/Vol] 0.5 10*3/uL Normal 0-0.9 [facility] Comment on above: Performed By: #### DMITRY Blackmon BCA, 22982-0, THYR #### [facility] ([id number]) [address], [facility] [address] [place] [address] Monocytes/100 WBC (Bld) 7.3 % Normal [facility] Comment on above: Performed By: #### Neymar PATEL BMP, 78346-4, THYR #### [facility] ([id number]) [address], [address] [place] [address] Neutrophils/100 WBC (Bld) 74.1 % Normal [facility] Comment on above: Performed By: #### DMITRY Blackmon BCA, 41316-7, THYR #### [facility] ([id number]) [address], [address] [place] [address] Platelet mean volume (Bld) [Entitic vol] 7.8 fL Normal 7-12 [facility] Comment on above: Performed By: #### DMITRY Blackmon BCA, 28295-3, THYR #### [facility] ([id number]) [address], [address] [place] [address] Platelets (Bld) [#/Vol] 279 10*3/uL Normal 150-450 [facility] Comment on above: Performed By: #### DMITRY Blackmon BCA, 87350-3, THYR #### [facility] ([id number]) [address], [facility] [address] [place] [address] RBC COUNT 4.12 X10E12/L Normal 3.80-5.20 [facility] Comment on above: Performed By: #### DMITRY Blackmon BCA, 60143-9, THYR #### [facility] ([id number]) [address], [address] [address] WBC (Bld) [#/Vol] 7.1 10*3/uL Normal 4.0-11.0 [facility] Comment on above: Performed By: #### DMITRY Blackmon BCA, 51890-7, THYR #### [facility] ([id number]) [address], [address] [place] [address] Fibrin D-dimer DDU (PPP) [Ma ss/Vol]on 09-27-2024 D DIMER 212 ng/mL DDU Normal <255 [facility] Comment on above: Result Comment: Results <255 ng/mL DDU: The presence of a VTE can safely be excluded with a negative D-Dimer result and Wells score. A negative result doesn't exclude the possibility of DIC. The test be repeated along with other diagnostic tests if the patient's symptoms persist or worsen. [email or web address] Performed By: #### C BCA, BMP, 78168-8, THYR #### [facility] ([id number]) [address], [address] [place] [address] XR CHEST 2 VWSon 09-27-2024 XR CHEST [...] Ernst MD on 09/27/2024 1:35 PM Normal [facility] SARS/FLU A+B/RSV by NAAT/Mol ecularon 08-17-2024 SARS/FLU [...] operators who are performing tests using either [employer] or [employer] systems and is limited to laboratories that [...] specimen repeat. Fact Sheet for Healthcare Providers: https://www.fda.gov/media/1 70337/download Fact Sheet for Patients: https://www.fda.gov/media/1 39380/download Normal [facility] Comment on above: Performed By: #### C BCA, [facility], [address]-3, THYR #### [facility] ([id number]) [address], [address] [place] [address] XR CHEST 1 VWon 08-17-2024 XR CHEST [...] Garo Ernst MD on 08/17/2024 11:52 AM Normal [facility] Rad - CT Reporton 08-11-2024 Rad - CT Report [id number] Normal [facility] Consultation/Specialist Note on 08-08-2024 Consultation/Special ist Note [id number]#1.00[facility] Rad - CT Reporton 07-20-2024 Rad - CT Report [id number]#2.00[facility] Consultation/Specialist Note on 07-12-2024 Consultation/Special ist Note [id number]#1.00[facility] Consultation/Specialist Note on 07-08-2024 Consultation/Special ist Note [id number]#1.00[facility] Consultation/Specialist Note on 06-22-2024 Consultation/Special ist Note [id number]#1.00[facility] Consultation/Special ist Note [id number]#1.00[facility] Consultation/Specialist Note on 05-26-2024 Consultation/Special ist Note [id number]#1.00[facility] Consultation/Specialist Note on 05-19-2024 Consultation/Special ist Note [id number]#1.00[facility] Consultation/Specialist Note on 05-12-2024 Consultation/Special ist Note [id number]#1.00[facility] Consultation/Special ist Note [id number]#1.00[facility] CBC AND AUTO DIFFon 04-27-20 24 ABSOLUTE BASOPHIL 0.1 X10E9/L Normal 0.0-0.2 [facility] Comment on above: Performed By: #### C BCA, BMP, 60294-4, THYR #### [facility] ([id number]) [address], [address] [place] [address] ABSOLUTE NEUTROPHIL 6.3 X10E9/L Normal 1.5-6.6 [facility] Comment on above: Performed By: #### C DMITRY PATEL, 10335-7, THYR #### [facility] ([id number]) [address], [address] [place] [address] Basophils/100 WBC (Bld) 1.2 % Normal [facility] Comment on above: Performed By: #### C DMITRY PATEL, 17380-4, THYR #### [facility] ([id number]) [address], [facility] [address] [place] [address] Eosinophils (Bld) [#/Vol] 0.2 10*3/uL Normal 0.0-0.4 [facility] Comment on above: Performed By: #### C JORGE BMP, 82356-5, THYR #### [facility] ([id number]) [address], [address] [place] [address] Eosinophils/100 WBC (Bld) 2.8 % Normal [facility] Comment on above: Performed By: #### C JORGE [facility], 69715-6, THYR #### [facility] ([id number]) [address] [address] [place] [address] Erythrocyte distribution width (RBC) [Ratio] 15.1 % High 11.5-15.0 [facility] Comment on above: Performed By: #### C DMITRY PATEL, 95236-0, THYR #### [facility] ([id number]) [address] [address] [place] [address] Hematocrit (Bld) [Volume fraction] 37.9 % Normal 35-47 [facility] Comment on above: Performed By: #### C JORGE BMP, 90305-6, THYR #### [facility] ([id number]) [address] [address] [place] [address] Hemoglobin (Bld) [Mass/Vol] 13.0 g/dL Normal 11.7-15.5 [facility] Comment on above: Performed By: #### C DMITRY PATEL, 67947-2, THYR #### [facility] ([id number]) [address] [place] [address] Lymphocytes (Bld) [#/Vol] 0.8 10*3/uL Low 1.0-3.5 [facility] Comment on above: Performed By: #### C DMITRY PATEL, 28219-5, THYR #### [facility] ([id number]) [address] [address] [place] [address] Lymphocytes/100 WBC (Bld) 10.3 % Normal [facility] Comment on above: Performed By: #### DMITRY Blackmon BCA, 38144-2, THYR #### [facility] ([id number]) [address] [address] [place] [address] MCH (RBC) [Entitic mass] 31.0 pg Normal 27-34 [facility] Comment on above: Performed By: #### DMITRY Blackmon BCA, 58043-2, THYR #### [facility] ([id number]) [address] [address] [place] [address] MCHC (RBC) [Mass/Vol] 34.4 g/dL Normal 32-36 [facility] Comment on above: Performed By: #### DMITRY Blackmon BCA, 99270-9, THYR #### [facility] ([id number]) [address] [place] [address] MCV (RBC) [Entitic vol] 90 fL Normal 80-100 [facility] Comment on above: Performed By: #### DMITRY Blackmon BCA, 20139-1, THYR #### [facility] ([id number]) [address], [address] [place] [address] Monocytes (Bld) [#/Vol] 0.7 10*3/uL Normal 0-0.9 [facility] Comment on above: Performed By: #### C JORGE BMP, 36730-7, THYR #### [facility] ([id number]) [address], [address] [place] [address] Monocytes/100 WBC (Bld) 8.4 % Normal [facility] Comment on above: Performed By: #### C JORGE, BMP, 72656-2, THYR #### [facility] ([id number]) [address], [address] [place] [address] Neutrophils/100 WBC (Bld) 77.3 % Normal [facility] Comment on above: Performed By: #### C JORGE, BMP, 52611-4, THYR #### [facility] ([id number]) [address], [address] [place] [address] Platelet mean volume (Bld) [Entitic vol] 8.4 fL Normal 7-12 [facility] Comment on above: Performed By: #### C JORGE, BMP, 39470-3, THYR #### [facility] ([id number]) [address], [address] [place] [address] Platelets (Bld) [#/Vol] 171 10*3/uL Normal 150-450 [facility] Comment on above: Performed By: #### C BCA, BMP, 00356-0, THYR #### [facility] ([id number]) [address], [address] [place] [address] RBC COUNT 4.21 X10E12/L Normal 3.80-5.20 [facility] Comment on above: Performed By: #### C JORGE, BMP, 95801-2, THYR #### [facility] ([id number]) [address], [address] [place] [address] WBC (Bld) [#/Vol] 8.1 10*3/uL Normal 4.0-11.0 [facility] Comment on above: Performed By: #### C BCA, BMP, 13207-9, THYR #### [facility] ([id number]) [address], [address] [place] [address] COMPREHENSIVE METABOLIC PANE Kemal 04-27-2024 Albumin [Mass/Vol] 3.0 g/dL Low 3.2-5.3 [facility] Comment on above: Performed By: #### C BCA, BMP, 38450-3, THYR #### [facility] ([id number]) [address], [address] [place] [address] ALP [Catalytic activity/Vol] 43 U/L Normal 39-130 [facility] Comment on above: Performed By: #### C BCA, BMP, 25497-9, THYR #### [facility] ([id number]) [address], [address] [place] [address] ALT [Catalytic activity/Vol] 27 U/L Normal 0-31 [facility] Comment on above: Performed By: #### C BCA, BMP, 09228-1, THYR #### [facility] ([id number]) [address], [address] [place] [address] Anion gap [Moles/Vol] 7 mmol/L Normal 5-15 [facility] Comment on above: Performed By: #### C BCA, BMP, 72340-1, THYR #### [facility] ([id number]) [address], [address] [place] [address] AST [Catalytic activity/Vol] 15 U/L Normal 0-41 [facility] Comment on above: Performed By: #### C BCA, BMP, 92070-3, THYR #### [facility] ([id number]) [address], [address] [place] [address] Bilirubin [Mass/Vol] 0.9 mg/dL Normal 0.3-1.2 [facility] Comment on above: Performed By: #### C JORGE, BMP, 00214-8, THYR #### [facility] ([id number]) [address], [facility] [address] [place] [address] Calcium [Mass/Vol] 7.5 mg/dL Low 8.5-10.5 [facility] Comment on above: Performed By: #### C BCA, BMP, 67392-6, THYR #### [facility] ([id number]) [address], [facility] [address] [place] [address] Chloride [Moles/Vol] 97 mmol/L Low 98-109 [facility] Comment on above: Performed By: #### C JORGE, BMP, 04692-4, THYR #### [facility] ([id number]) [address], [address] [place] [address] CO2 [Moles/Vol] 29 mmol/L Normal 22-32 [facility] Comment on above: Performed By: #### C JORGE, BMP, 42997-3, THYR #### [facility] ([id number]) [address], [address] [place] [address] Creatinine [Mass/Vol] 0.88 mg/dL Normal 0.40-1.00 [facility] Comment on above: Result Comment: METH OD TRACEABLE TO IDMS STANDARD Performed By: #### C BCA, BMP, 71377-0, THYR #### [facility] ([id number]) [address], [facility] [address] [place] [address] GFR/1.73 sq M.predicted among non-blacks MDRD (S/P/Bld) [Vol rate/Area] 70 mL/min/{1.73_m2} Normal >59 [facility] Comment on above: Result Comment: Reported eGFR is based on the CKD-EPI 2020 equation that does not use a race coefficient. Performed By: #### C JORGE BMP, 45560-7, THYR #### [facility] ([id number]) [address], [address] [place] [address] Glucose [Mass/Vol] 104 mg/dL High 65-99 [facility] Comment on above: Performed By: #### C JORGE, BMP, 97496-0, THYR #### [facility] ([id number]) [address], [address] [place] [address] Potassium [Moles/Vol] 3.1 mmol/L Low 3.5-5.0 [facility] Comment on above: Performed By: #### C JORGE, BMP, 33415-9, THYR #### [facility] ([id number]) [address], [address] [place] [address] Protein [Mass/Vol] 5.9 g/dL Low 6.0-8.0 [facility] Comment on above: Performed By: #### C JORGE, BMP, 46832-8, THYR #### [facility] ([id number]) [address], [address] [place] [address] Sodium [Moles/Vol] 133 mmol/L Low 134-146 [facility] Comment on above: Performed By: #### C JORGE BMP, 50404-7, THYR #### [facility] ([id number]) [address], [address] [place] [address] Urea nitrogen [Mass/Vol] 20 mg/dL Normal 5-27 [facility] Comment on above: Performed By: #### C JORGE, BMP, 66541-6, THYR #### [facility] ([id number]) [address], [address] [place] [address] Glucose Glucometer (BldC) [M ass/Vol]on 04-27-2024 Glucose [Mass/Vol] 325 mg/dL High 65-99 [facility] MAGNESIUMon 07-03-2024 Magnesium [Mass/Vol] 2.2 mg/dL Normal 1.8-2.6 [facility] Comment on above: Performed By: #### C DMITRY PATEL, 21791-1, THYR #### [facility] ([id number]) [address], [address] [place] [address] CBC AND AUTO DIFFon 04-26-20 ABSOLUTE BASOPHIL 0.0 X10E9/L Normal 0.0-0.2 [facility] Comment on above: Performed By: #### C DMITRY PATEL, 20277-5, THYR #### [facility] ([id number]) [address], [address] [place] [address] ABSOLUTE NEUTROPHIL 10.7 X10E9/L High 1.5-6.6 [facility] Comment on above: Performed By: #### C JORGE BMP, 96986-3, THYR #### [facility] ([id number]) [address], [address] [place] [address] Basophils/100 WBC (Bld) 0.3 % Normal [facility] Comment on above: Performed By: #### C JORGE BMP, 21810-1, THYR #### [facility] ([id number]) [address], [address] [place] [address] Eosinophils (Bld) [#/Vol] 0.1 10*3/uL Normal 0.0-0.4 [facility] Comment on above: Performed By: #### C JORGE, BMP, 51300-9, THYR #### [facility] ([id number]) [address], [address] [place] [address] Eosinophils/100 WBC (Bld) 0.7 % Normal [facility] Comment on above: Performed By: #### C JORGE BMP, 31960-8, THYR #### [facility] ([id number]) [address], [address] [place] [address] Erythrocyte distribution width (RBC) [Ratio] 14.8 % Normal 11.5-15.0 [facility] Comment on above: Performed By: #### C DMITRY PATEL, 57482-5, THYR #### [facility] ([id number]) [address] [address] [place] [address] Hematocrit (Bld) [Volume fraction] 41.2 % Normal 35-47 [facility] Comment on above: Performed By: #### C DMITRY PATEL, 92665-4, THYR #### [facility] ([id number]) [address], [facility] [address] [place] [address] Hemoglobin (Bld) [Mass/Vol] 14.0 g/dL Normal 11.7-15.5 [facility] Comment on above: Performed By: #### DMITRY Blackmon BCA, 14534-0, THYR #### [facility] ([id number]) [address], [facility] [address] [place] [address] Lymphocytes (Bld) [#/Vol] 0.5 10*3/uL Low 1.0-3.5 [facility] Comment on above: Performed By: #### C DMITRY PATEL, 82302-5, THYR #### [facility] ([id number]) [address], [facility] [address] [place] [address] Lymphocytes/100 WBC (Bld) 4.4 % Normal [facility] Comment on above: Performed By: #### C DMITRY PATEL, 55007-0, THYR #### [facility] ([id number]) [address] [address] [place] [address] MCH (RBC) [Entitic mass] 30.9 pg Normal 27-34 [facility] Comment on above: Performed By: #### C DMITRY PATEL, 48590-4, THYR #### [facility] ([id number]) [address], [address] [place] [address] MCHC (RBC) [Mass/Vol] 33.9 g/dL Normal 32-36 [facility] Comment on above: Performed By: #### C JORGE BMP, 12356-8, THYR #### [facility] ([id number]) [address], [address] [place] [address] MCV (RBC) [Entitic vol] 91 fL Normal 80-100 [facility] Comment on above: Performed By: #### C DMITRY PATEL, 29059-8, THYR #### [facility] ([id number]) [address], [address] [place] [address] Monocytes (Bld) [#/Vol] 1.0 10*3/uL High 0-0.9 [facility] Comment on above: Performed By: #### Neymar PATEL BMP, 63387-6, THYR #### [facility] ([id number]) [address], [address] [place] [address] Monocytes/100 WBC (Bld) 7.8 % Normal [facility] Comment on above: Performed By: #### Neymar PATEL, BMP, 87115-4, THYR #### [facility] ([id number]) [address], [address] [place] [address] Neutrophils/100 WBC (Bld) 86.8 % Normal [facility] Comment on above: Performed By: #### Neymar PATEL BMP, 06136-8, THYR #### [facility] ([id number]) [address], [address] [place] [address] Platelet mean volume (Bld) [Entitic vol] 8.3 fL Normal 7-12 [facility] Comment on above: Performed By: #### Neymar PATEL BMP, 42176-4, THYR #### [facility] ([id number]) [address], [address] [place] [address] Platelets (Bld) [#/Vol] 168 10*3/uL Normal 150-450 [facility] Comment on above: Performed By: #### C JORGE BMP, 60210-7, THYR #### [facility] ([id number]) [address], [facility] [address] [place] [address] RBC COUNT 4.52 X10E12/L Normal 3.80-5.20 [facility] Comment on above: Performed By: #### C JORGE, BMP, 35622-0, THYR #### [facility] ([id number]) [address], [address] [address] WBC (Bld) [#/Vol] 12.3 10*3/uL High 4.0-11.0 [facility] Comment on above: Performed By: #### C JORGE BMP, 88704-8, THYR #### [facility] ([id number]) [address], [address] [place] [address] COMPREHENSIVE METABOLIC PANE Kemal 04-26-2024 Albumin [Mass/Vol] 3.1 g/dL Low 3.2-5.3 [facility] Comment on above: Performed By: #### C JORGE, BMP, 85922-4, THYR #### [facility] ([id number]) [address], [address] [address] ALP [Catalytic activity/Vol] 43 U/L Normal 39-130 [facility] Comment on above: Performed By: #### C JORGE, BMP, 12626-4, THYR #### [facility] ([id number]) [address], [facility] [address] [place] [address] ALT [Catalytic activity/Vol] 36 U/L High 0-31 [facility] Comment on above: Result Comment: SPEC IMEN HEMOLYZED, RESULTS INCREASED Performed By: #### C BCA, BMP, 14895-6, THYR #### [facility] ([id number]) [address], [address] [place] [address] Anion gap [Moles/Vol] 10 mmol/L Normal 5-15 [facility] Comment on above: Performed By: #### C JORGE, BMP, 15471-8, THYR #### [facility] ([id number]) [address], [address] [place] [address] AST [Catalytic activity/Vol] 21 U/L Normal 0-41 [facility] Comment on above: Result Comment: SPEC IMEN HEMOLYZED, RESULTS INCREASED Performed By: #### C JORGE, BMP, 88855-2, THYR #### [facility] ([id number]) [address] [place] [address] Bilirubin [Mass/Vol] 1.7 mg/dL High 0.3-1.2 [facility] Comment on above: Result Comment: RESU LTS QUESTIONABLE DUE TO HEMOLYSIS Performed By: #### C JORGE, BMP, 40671-5, THYR #### [facility] ([id number]) [address] [place] [address] Calcium [Mass/Vol] 7.2 mg/dL Low 8.5-10.5 [facility] Comment on above: Performed By: #### C JORGE, BMP, 11525-2, THYR #### [facility] ([id number]) [address] [place] [address] Chloride [Moles/Vol] 96 mmol/L Low 98-109 [facility] Comment on above: Performed By: #### C JORGE, BMP, 62331-8, THYR #### [facility] ([id number]) [address] [place] [address] CO2 [Moles/Vol] 29 mmol/L Normal 22-32 [facility] Comment on above: Performed By: #### C BCA, BMP, 19409-4, THYR #### [facility] ([id number]) [address], [address] [place] [address] Creatinine [Mass/Vol] 0.88 mg/dL Normal 0.40-1.00 [facility] Comment on above: Result Comment: METH OD TRACEABLE TO IDMS STANDARD Performed By: #### C DMITRY PATEL, 10283-3, THYR #### [facility] ([id number]) [address], [facility] [address] [place] [address] GFR/1.73 sq M.predicted among non-blacks MDRD (S/P/Bld) [Vol rate/Area] 70 mL/min/{1.73_m2} Normal >59 [facility] Comment on above: Result Comment: Reported eGFR is based on the CKD-EPI 2020 equation that does not use a race coefficient. Performed By: #### C JORGE BMP, 45395-8, THYR #### [facility] ([id number]) [address], [address] [place] [address] Glucose [Mass/Vol] 134 mg/dL High 65-99 [facility] Comment on above: Performed By: #### C DMITRY PATEL, 21824-2, THYR #### [facility] ([id number]) [address] [address] [place] [address] Potassium [Moles/Vol] 3.8 mmol/L Normal 3.5-5.0 [facility] Comment on above: Result Comment: SPEC IMEN HEMOLYZED, RESULTS INCREASED Performed By: #### C BCA BMP, 65665-0, THYR #### [facility] ([id number]) [address] [place] [address] Protein [Mass/Vol] 5.9 g/dL Low 6.0-8.0 [facility] Comment on above: Performed By: #### C BCA BMP, 40557-7, THYR #### [facility] ([id number]) [address] [place] [address] Sodium [Moles/Vol] 135 mmol/L Normal 134-146 [facility] Comment on above: Performed By: #### DMITRY Blackmon BCA, 36499-7, THYR #### [facility] ([id number]) [address], [address] [place] [address] Urea nitrogen [Mass/Vol] 16 mg/dL Normal 5-27 [facility] Comment on above: Performed By: #### DMITRY Blackmon BCA, 92313-8, THYR #### [facility] ([id number]) [address], [address] [place] [address] Glucose Glucometer (BldC) [M ass/Vol]on 04-26-2024 Glucose [Mass/Vol] 118 mg/dL High 65-99 [facility] Glucose [Mass/Vol] 367 mg/dL High 65-99 [facility] BEDSIDE GLUCOSE LAB >500 Critically high 65-99 [facility] Comment on above: Result Comment: SEE LAB RESULTS FOR CONFIRMATION Glucose [Mass/Vol] 230 mg/dL High 65-99 [facility] Glucose [Mass/Vol] 106 mg/dL High 65-99 [facility] LIPASEon 04-26-2024 Lipase [Catalytic activity/Vol] 100 U/L High 17-40 [facility] Comment on above: Performed By: #### DMITRY Blackmon BCA, 01437-0, THYR #### [facility] ([id number]) [address] [place] [address] Lactate (P dannie) [Moles/Vol]o n 04-26-2024 LACTATE W/REFLEX 1.7 mmol/L Normal 0.4-2.0 [facility] Comment on above: Result Comment: Result did not trigger repeat Lactate, re-order if needed. Performed By: #### DMITRY Blackmon BCA, 02578-7, THYR #### [facility] ([id number]) [address], [address] [place] [address] MAGNESIUMon 04-26-2024 Magnesium [Mass/Vol] 1.9 mg/dL Normal 1.8-2.6 [facility] Comment on above: Result Comment: SPEC IMEN HEMOLYZED, RESULTS INCREASED Performed By: #### C DMITRY PATEL, 82917-5, THYR #### [facility] ([id number]) [address] [place] [address] Troponin I.cardiac High sens itivity method [Mass/Vol]on 04-26-2024 1 HOUR TROP I, HIGH SENSITIVITY 10 ng/L Normal <16 [facility] Comment on above: Performed By: #### DMITRY Blackmon BCA, 83855-0, THYR #### [facility] ([id number]) [address] [place] [address] TROPONIN I, HIGH SENSITIVITY 9 ng/L Normal <16 [facility] Comment on above: Performed By: #### DMITRY Blackmon BCA, 11226-8, THYR #### [facility] ([id number]) [address], [address] [place] [address] ACUTE HEPATITIS PANELon ANTI HCV W/PCR REFLX Non-Reactive Normal NRCT Pr [facility] Comment on above: Result Comment: If recent infection suspected, recommend repeat testing (>2 months). Azaydd-lo-dsvtpw ratio is <0.80. Performed By: #### DMITRY Blackmon BCA, 43007-7, THYR #### [facility] ([id number]) [address], [address] [place] [address] HEPATITIS A IGM Non-Reactive Normal NRCT [facility] Comment on above: Performed By: #### DMITRY Blackmon BCA, 66973-2, THYR #### [facility] ([id number]) [address], [address] [place] [address] HEPATITIS B CORE IGM Negative Normal NEG [facility] Comment on above: Performed By: #### C DMITRY PATEL, 20533-1, THYR #### [facility] ([id number]) [address], [address] [place] [address] HEPATITIS B SURF AG Negative Normal NEG [facility] Comment on above: Performed By: #### C DMITRY PATEL, 32124-1, THYR #### [facility] ([id number]) [address], [address] [place] [address] CBC AND AUTO DIFFon 04-25-20 24 ABSOLUTE BASOPHIL 0.1 X10E9/L Normal 0.0-0.2 [facility] Comment on above: Performed By: #### C JORGE [facility], 93267-0, THYR #### [facility] ([id number]) [address], [address] [place] [address] ABSOLUTE NEUTROPHIL 12.8 X10E9/L High 1.5-6.6 [facility] Comment on above: Performed By: #### C JORGE [facility], 64840-2, THYR #### [facility] ([id number]) [address], [address] [place] [address] Basophils/100 WBC (Bld) 0.7 % Normal [facility] Comment on above: Performed By: #### C DMITRY PATEL, 42028-1, THYR #### [facility] ([id number]) [address], [address] [place] [address] Eosinophils (Bld) [#/Vol] 0.2 10*3/uL Normal 0.0-0.4 [facility] Comment on above: Performed By: #### C JORGE BMP, 66826-5, THYR #### [facility] ([id number]) [address], [address] [place] [place] [address] Eosinophils/100 WBC (Bld) 1.3 % Normal [facility] Comment on above: Performed By: #### C DMITRY PAETL, 96466-5, THYR #### [facility] ([id number]) [address], [address] [place] [address] Erythrocyte distribution width (RBC) [Ratio] 14.9 % Normal 11.5-15.0 [facility] Comment on above: Performed By: #### C JORGE BMP, 91881-7, THYR #### [facility] ([id number]) [address], [address] [place] [address] Hematocrit (Bld) [Volume fraction] 45.4 % Normal 35-47 [facility] Comment on above: Performed By: #### C JORGE BMP, 29308-9, THYR #### [facility] ([id number]) [address], [address] [place] [address] Hemoglobin (Bld) [Mass/Vol] 15.7 g/dL High 11.7-15.5 [facility] Comment on above: Performed By: #### C JORGE BMP, 30777-3, THYR #### [facility] ([id number]) [address], [address] [place] [address] Lymphocytes (Bld) [#/Vol] 0.9 10*3/uL Low 1.0-3.5 [facility] Comment on above: Performed By: #### Neymar PATEL BMP, 17197-8, THYR #### [facility] ([id number]) [address], [address] [place] [address] Lymphocytes/100 WBC (Bld) 6.2 % Normal [facility] Comment on above: Performed By: #### C JORGE BMP, 24161-5, THYR #### [facility] ([id number]) [address], [address] [place] [address] MCH (RBC) [Entitic mass] 30.8 pg Normal 27-34 [facility] Comment on above: Performed By: #### C DMITRY PATEL, 00563-9, THYR #### [facility] ([id number]) [address], [address] [place] [address] MCHC (RBC) [Mass/Vol] 34.6 g/dL Normal 32-36 [facility] Comment on above: Performed By: #### C DMITRY PATEL, 84999-5, THYR #### [facility] ([id number]) [address], [address] [place] [address] MCV (RBC) [Entitic vol] 89 fL Normal 80-100 [facility] Comment on above: Performed By: #### C DMITRY PATEL, 81960-2, THYR #### [facility] ([id number]) [address], [address] [place] [address] Monocytes (Bld) [#/Vol] 0.6 10*3/uL Normal 0-0.9 [facility] Comment on above: Performed By: #### C DMITRY PATEL, 51094-3, THYR #### [facility] ([id number]) [address], [address] [place] [address] Monocytes/100 WBC (Bld) 4.3 % Normal [facility] Comment on above: Performed By: #### DMITRY Blackmon BCA, 84727-4, THYR #### [facility] ([id number]) [address], [address] [place] [address] Neutrophils/100 WBC (Bld) 87.5 % Normal [facility] Comment on above: Performed By: #### DMITRY Blackmon BCA, 88133-0, THYR #### [facility] ([id number]) [address], [address] [place] [address] Platelet mean volume (Bld) [Entitic vol] 7.8 fL Normal 7-12 [facility] Comment on above: Performed By: #### C BCA, BMP, 27981-9, THYR #### [facility] ([id number]) [address], [address] [place] [address] Platelets (Bld) [#/Vol] 203 10*3/uL Normal 150-450 [facility] Comment on above: Performed By: #### C JORGE, BMP, 62527-9, THYR #### [facility] ([id number]) [address], [address] [place] [address] RBC COUNT 5.11 X10E12/L Normal 3.80-5.20 [facility] Comment on above: Performed By: #### C JORGE, BMP, 46415-7, THYR #### [facility] ([id number]) [address], [address] [place] [address] WBC (Bld) [#/Vol] 14.7 10*3/uL High 4.0-11.0 [facility] Comment on above: Performed By: #### C JORGE, BMP, 16197-9, THYR #### [facility] ([id number]) [address], [address] [place] [address] COMPREHENSIVE METABOLIC PANE Kemal 04-25-2024 Albumin [Mass/Vol] 3.6 g/dL Normal 3.2-5.3 [facility] Comment on above: Performed By: #### C BCA, BMP, 61994-3, THYR #### [facility] ([id number]) [address], [address] [place] [address] ALP [Catalytic activity/Vol] 56 U/L Normal 39-130 [facility] Comment on above: Performed By: #### C BCA, BMP, 22972-2, THYR #### [facility] ([id number]) [address], [address] [place] [address] ALT [Catalytic activity/Vol] 62 U/L High 0-31 [facility] Comment on above: Performed By: #### C BCA, BMP, 07409-0, THYR #### [facility] ([id number]) [address], [address] [place] [address] Anion gap [Moles/Vol] 8 mmol/L Normal 5-15 [facility] Comment on above: Performed By: #### C BCA, BMP, 16255-1, THYR #### [facility] ([id number]) [address], [address] [place] [address] AST [Catalytic activity/Vol] 38 U/L Normal 0-41 [facility] Comment on above: Performed By: #### C BCA, BMP, 99484-0, THYR #### [facility] ([id number]) [address], [address] [place] [address] Bilirubin [Mass/Vol] 0.5 mg/dL Normal 0.3-1.2 [facility] Comment on above: Performed By: #### C BCA, BMP, 75488-8, THYR #### [facility] ([id number]) [address], [address] [place] [address] Calcium [Mass/Vol] 6.5 mg/dL Critically low 8.5-10.5 [facility] Comment on above: Performed By: #### C BCA, BMP, 85524-5, THYR #### [facility] ([id number]) [address], [address] [place] [address] Chloride [Moles/Vol] 102 mmol/L Normal 98-109 [facility] Comment on above: Performed By: #### C BCA, BMP, 78932-9, THYR #### [facility] ([id number]) [address], [address] [place] [address] CO2 [Moles/Vol] 29 mmol/L Normal 22-32 [facility] Comment on above: Performed By: #### C BCA, BMP, 36112-3, THYR #### [facility] ([id number]) [address], [address] [place] [address] Creatinine [Mass/Vol] 1.05 mg/dL High 0.40-1.00 [facility] Comment on above: Result Comment: METH OD TRACEABLE TO IDMS STANDARD Performed By: #### C JORGE BMP, 18692-7, THYR #### [facility] ([id number]) [address], [address] [place] [address] GFR/1.73 sq M.predicted among non-blacks MDRD (S/P/Bld) [Vol rate/Area] 57 mL/min/{1.73_m2} Low >59 [facility] Comment on above: Result Comment: Reported eGFR is based on the CKD-EPI 2020 equation that does not use a race coefficient. Performed By: #### C DMITRY PATEL, 97752-8, THYR #### [facility] ([id number]) [address], [address] [place] [address] Glucose [Mass/Vol] 147 mg/dL High 65-99 [facility] Comment on above: Performed By: #### C JORGE BMP, 03728-8, THYR #### [facility] ([id number]) [address] [place] [address] Potassium [Moles/Vol] 3.3 mmol/L Low 3.5-5.0 [facility] Comment on above: Performed By: #### C JORGE BMP, 31883-5, THYR #### [facility] ([id number]) [address], [facility] [address] [place] [address] Protein [Mass/Vol] 6.6 g/dL Normal 6.0-8.0 [facility] Comment on above: Performed By: #### C JORGE BMP, 01558-7, THYR #### [facility] ([id number]) [address] [place] [address] Sodium [Moles/Vol] 139 mmol/L Normal 134-146 [facility] Comment on above: Performed By: #### C BCA, BMP, 47352-5, THYR #### [facility] ([id number]) [address] [place] [address] Urea nitrogen [Mass/Vol] 22 mg/dL Normal 5-27 [facility] Comment on above: Performed By: #### C BCA, BMP, 40042-4, THYR #### [facility] ([id number]) [address], [address] [place] [address] CT CTA ABD AND PELVISon CT CTA [...] Chapman MD on 04/25/2024 10:10 AM Normal [facility] CT CTA CHESTon 04-25-2024 CT CTA CHEST [...] Gaytan MD on 04/25/2024 9:54 AM Normal [facility] Glucose Glucometer (BldC) [M ass/Vol]on 04-25-2024 Glucose [Mass/Vol] 162 mg/dL High 65-99 [facility] LIPASEon 04-25-2024 Lipase [Catalytic activity/Vol] 54 U/L High 17-40 [facility] Comment on above: Performed By: #### DMITRY Blackmon BCA, 98795-9, THYR #### [facility] ([id number]) [address], [address] [place] [address] MAGNESIUMon 04-25-2024 Magnesium [Mass/Vol] 1.9 mg/dL Normal 1.8-2.6 [facility] Comment on above: Performed By: #### DMITRY Blackmon BCA, 64177-3, THYR #### [facility] ([id number]) [address], [address] [place] [address] Natriuretic peptide B [Mass/ Vol]on 04-25-2024 Natriuretic peptide B (Bld) [Mass/Vol] 47 pg/mL Normal <100.0 [facility] Comment on above: Performed By: #### DMITRY Blackmon BCA, 75651-9, THYR #### [facility] ([id number]) [address], [address] [place] [address] PROTIME AND INRon 04-25-2024 INR Coag (PPP) [Relative time] 1.0 {INR} Normal 0.8-1.1 [facility] Comment on above: Performed By: #### DMITRY Blackmon BCA, 58669-5, THYR #### [facility] ([id number]) [address], [address] [place] [address] PT Coag (PPP) [Time] 11.9 s Normal 9.8-13.2 [facility] Comment on above: Result Comment: NEW REFERENCE RANGE Performed By: #### DMITRY Blackmon BCA, 76120-7, THYR #### [facility] ([id number]) [address], [address] [place] [address] Procalcitonin IA [Mass/Vol]o n 04-25-2024 PROCALCITONIN 0.08 ng/mL High <0.05 [facility] Comment on above: Result Comment: NOTE <0.50 ng/mL - Low risk of severe sepsis and/or septic shock. <2.00 ng/mL - Recommend retesting within 6-24 hours. >2.00 ng/mL - High risk of sepsis and/or septic shock. Performed By: #### C DMITRY PATEL, 20839-8, THYR #### [facility] ([id number]) [address], [address] [place] [address] Troponin I.cardiac High sens itivity method [Mass/Vol]on 04-25-2024 1 HOUR TROP I, HIGH SENSITIVITY 10 ng/L Normal <16 [facility] Comment on above: Performed By: #### C DMITRY PATEL, 13550-3, THYR #### [facility] ([id number]) [address] [facility], [address] [place] [address] TROPONIN I, HIGH SENSITIVITY 11 ng/L Normal <16 [facility] Comment on above: Performed By: #### C JORGE, DMITRY, 56613-7, THYR #### [facility] ([id number]) [address], [address] [place] [address] Vitamin D+Metabolites [Mass/ Vol]on 04-25-2024 VITAMIN D 25 HYD TOT 23.3 ng/mL Low 30-100 [facility] Comment on above: Result Comment: Vitamin D status 25 [place] Vitamin D Deficiency <20 ng/mL Insufficiency 20-29 ng/mL Sufficiency 30-100 ng/mL Toxicity >100 ng/mL NOTE: A pediatric reference range has not been established by the crane operator of this kit. The [employer] recommends a Vitamin D level of = or >20ng/mL in infants and children. Performed By: #### C JORGE, DMITRY, 26554-9, THYR #### [facility] ([id number]) [address] [facility], [address] [place] [address] aPTT Coag (PPP) [Time]on aPTT Coag (Bld) [Time] 26 s Normal 26-37 [facility] Comment on above: Result Comment: NEW REFERENCE RANGE Performed By: #### C DMITRY PATEL, 76696-8, THYR #### [facility] ([id number]) [address] [facility], [address] [place] [address] Outside Recordson 04-21-2024 Outside Records [id number]#1.00OTGTIFF Normal [facility] Outside Records [id number]#1.00OTGTIFF Normal [facility] [place] SWALLOW MOTILITY FUNCTION on 04-20-2024 [...] Granger MD on 04/20/2024 3:12 PM Normal [facility] CBC AND AUTO DIFFon 04-18-20 ABSOLUTE BASOPHIL 0.1 X10E9/L Normal 0.0-0.2 [facility] Comment on above: Performed By: #### C JORGE, DMITRY, 49122-2, THYR #### [facility] ([id number]) [address] [facility], [address] [place] [address] ABSOLUTE NEUTROPHIL 7.4 X10E9/L High 1.5-6.6 [facility] Comment on above: Performed By: #### DMITRY Blackmon BCA, 77435-6, THYR #### [facility] ([id number]) [address], [address] [place] [address] Basophils/100 WBC (Bld) 0.7 % Normal [facility] Comment on above: Performed By: #### C DMITRY PATEL, 46514-1, THYR #### [facility] ([id number]) [address], [facility] [address] [place] [address] Eosinophils (Bld) [#/Vol] 0.0 10*3/uL Normal 0.0-0.4 [facility] Comment on above: Performed By: #### DMITRY Blackmon BCA, 82334-5, THYR #### [facility] ([id number]) [address] [place] [address] Eosinophils/100 WBC (Bld) 0.1 % Normal [facility] Comment on above: Performed By: #### DMITRY Blackmon BCA, 59874-3, THYR #### [facility] ([id number]) [address], [address] [place] [address] Erythrocyte distribution width (RBC) [Ratio] 14.9 % Normal 11.5-15.0 [facility] Comment on above: Performed By: #### DMITRY Blackmon BCA, 44063-6, THYR #### [facility] ([id number]) [address], [address] [place] [address] Hematocrit (Bld) [Volume fraction] 40.3 % Normal 35-47 [facility] Comment on above: Performed By: #### C DMITRY PATEL, 69844-9, THYR #### [facility] ([id number]) [address], [address] [place] [address] Hemoglobin (Bld) [Mass/Vol] 13.5 g/dL Normal 11.7-15.5 [facility] Comment on above: Performed By: #### C DMITRY PATEL, 69167-6, THYR #### [facility] ([id number]) [address], [address] [place] [address] Lymphocytes (Bld) [#/Vol] 0.6 10*3/uL Low 1.0-3.5 [facility] Comment on above: Performed By: #### C JORGE, BMP, 36335-6, THYR #### [facility] ([id number]) [address], [facility] [address] [place] [address] Lymphocytes/100 WBC (Bld) 6.9 % Normal [facility] Comment on above: Performed By: #### DMITRY Blackmon BCA, 46513-5, THYR #### [facility] ([id number]) [address] [place] [address] MCH (RBC) [Entitic mass] 30.5 pg Normal 27-34 [facility] Comment on above: Performed By: #### DMITRY Blackmon BCA, 11836-1, THYR #### [facility] ([id number]) [address], [address] [place] [address] MCHC (RBC) [Mass/Vol] 33.6 g/dL Normal 32-36 [facility] Comment on above: Performed By: #### C JORGE BMP, 00940-7, THYR #### [facility] ([id number]) [address], [address] [place] [address] MCV (RBC) [Entitic vol] 91 fL Normal 80-100 [facility] Comment on above: Performed By: #### C JORGE, BMP, 09474-7, THYR #### [facility] ([id number]) [address], [address] [place] [address] Monocytes (Bld) [#/Vol] 0.1 10*3/uL Normal 0-0.9 [facility] Comment on above: Performed By: #### C DMITRY PATEL, 51199-6, THYR #### [facility] ([id number]) [address], [address] [place] [address] Monocytes/100 WBC (Bld) 1.6 % Normal [facility] Comment on above: Performed By: #### DMITRY Blackmon BCA, 29737-0, THYR #### [facility] ([id number]) [address], [address] [place] [address] Neutrophils/100 WBC (Bld) 90.7 % Normal [facility] Comment on above: Performed By: #### DMITRY Blackmon BCA, 40358-4, THYR #### [facility] ([id number]) [address], [address] [place] [address] Platelet mean volume (Bld) [Entitic vol] 8.2 fL Normal 7-12 [facility] Comment on above: Performed By: #### DMITRY Blackmon BCA, 54020-5, THYR #### [facility] ([id number]) [address], [address] [place] [address] Platelets (Bld) [#/Vol] 220 10*3/uL Normal 150-450 [facility] Comment on above: Performed By: #### DMITRY Blackmon BCA, 12527-3, THYR #### [facility] ([id number]) [address], [address] [place] [address] RBC COUNT 4.44 X10E12/L Normal 3.80-5.20 [facility] Comment on above: Performed By: #### DMITRY Blackmon BCA, 23927-7, THYR #### [facility] ([id number]) [address], [address] [place] [address] WBC (Bld) [#/Vol] 8.1 10*3/uL Normal 4.0-11.0 [facility] Comment on above: Performed By: #### C JORGE BMP, 71267-1, THYR #### [facility] ([id number]) [address], [address] [place] [address] COMPREHENSIVE METABOLIC PANE Kemal 04-18-2024 Albumin [Mass/Vol] 3.9 g/dL Normal 3.2-5.3 [facility] Comment on above: Performed By: #### C BCA, BMP, 98130-7, THYR #### [facility] ([id number]) [address], [address] [place] [address] ALP [Catalytic activity/Vol] 68 U/L Normal 39-130 [facility] Comment on above: Performed By: #### C BCA, BMP, 70095-1, THYR #### [facility] ([id number]) [address], [address] [place] [address] ALT [Catalytic activity/Vol] 31 U/L Normal 0-31 [facility] Comment on above: Performed By: #### C JORGE, BMP, 49243-0, THYR #### [facility] ([id number]) [address], [address] [place] [address] Anion gap [Moles/Vol] 11 mmol/L Normal 5-15 [facility] Comment on above: Performed By: #### C JORGE, BMP, 56259-7, THYR #### [facility] ([id number]) [address], [address] [place] [address] AST [Catalytic activity/Vol] 25 U/L Normal 0-41 [facility] Comment on above: Performed By: #### C BCA, BMP, 10257-6, THYR #### [facility] ([id number]) [address], [address] [place] [address] Bilirubin [Mass/Vol] 0.7 mg/dL Normal 0.3-1.2 [facility] Comment on above: Performed By: #### C JORGE BMP, 81819-9, THYR #### [facility] ([id number]) [address], [address] [place] [address] Calcium [Mass/Vol] 7.0 mg/dL Low 8.5-10.5 [facility] Comment on above: Performed By: #### C JORGE BMP, 82849-4, THYR #### [facility] ([id number]) [address], [address] [place] [address] Chloride [Moles/Vol] 98 mmol/L Normal 98-109 [facility] Comment on above: Performed By: #### C JORGE BMP, 57085-7, THYR #### [facility] ([id number]) [address] [place] [address] CO2 [Moles/Vol] 24 mmol/L Normal 22-32 [facility] Comment on above: Performed By: #### C JORGE BMP, 41773-3, THYR #### [facility] ([id number]) [address] [place] [address] Creatinine [Mass/Vol] 1.03 mg/dL High 0.40-1.00 [facility] Comment on above: Result Comment: METH OD TRACEABLE TO IDMS STANDARD Performed By: #### C BCA, BMP, 98438-2, THYR #### [facility] ([id number]) [address] [place] [address] GFR/1.73 sq M.predicted among non-blacks MDRD (S/P/Bld) [Vol rate/Area] 58 mL/min/{1.73_m2} Low >59 [facility] Comment on above: Result Comment: Reported eGFR is based on the CKD-EPI 2020 equation that does not use a race coefficient. Performed By: #### C BCA, BMP, 47411-3, THYR #### [facility] ([id number]) [address] [place] [address] Glucose [Mass/Vol] 391 mg/dL High 65-99 [facility] Comment on above: Performed By: #### C JORGE, BMP, 63916-8, THYR #### [facility] ([id number]) [address], [address] [place] [address] Potassium [Moles/Vol] 3.8 mmol/L Normal 3.5-5.0 [facility] Comment on above: Performed By: #### C JORGE, BMP, 11082-2, THYR #### [facility] ([id number]) [address] [place] [address] Protein [Mass/Vol] 6.9 g/dL Normal 6.0-8.0 [facility] Comment on above: Performed By: #### Neymar PATEL, BMP, 93562-6, THYR #### [facility] ([id number]) [address] [place] [address] Sodium [Moles/Vol] 133 mmol/L Low 134-146 [facility] Comment on above: Performed By: #### C JORGE BMP, 38621-4, THYR #### [facility] ([id number]) [address] [place] [address] Urea nitrogen [Mass/Vol] 26 mg/dL Normal 5-27 [facility] Comment on above: Performed By: #### C BCA, BMP, 37726-0, THYR #### [facility] ([id number]) [address] [place] [address] Fibrin D-dimer DDU (PPP) [Ma ss/Vol]on 04-18-2024 D DIMER 179 ng/mL DDU Normal <255 [facility] Comment on above: Result Comment: Results <255 ng/mL DDU: The presence of a VTE can safely be excluded with a negative D-Dimer result and Wells score. A negative result doesn't exclude the possibility of DIC. The test be repeated along with other diagnostic tests if the patient's symptoms persist or worsen. [email or web address] Performed By: #### C DMITRY PATEL, 68384-1, THYR #### [facility] ([id number]) [address] [place] [address] MAGNESIUMon 04-18-2024 Magnesium [Mass/Vol] 1.9 mg/dL Normal 1.8-2.6 [facility] Comment on above: Performed By: #### C DMITRY PATEL, 82915-8, THYR #### [facility] ([id number]) [address], [address] [place] [address] Troponin I.cardiac High sens itivity method [Mass/Vol]on 04-18-2024 1 HOUR TROP I, HIGH SENSITIVITY 9 ng/L Normal <16 [facility] Comment on above: Performed By: #### C DMITRY PATEL, 19067-9, THYR #### [facility] ([id number]) [address], [address] [place] [address] TROPONIN I, HIGH SENSITIVITY 8 ng/L Normal <16 [facility] Comment on above: Performed By: #### C DMITRY PATEL, 44811-5, THYR #### [facility] ([id number]) [address], [address] [place] [address] Consultation/Specialist Note on 03-31-2024 Consultation/Special ist Note [id number] [facility] Coding Summaryon 03-30-2024 Coding Summary HTMLBase 64 BqjjrekcPTz5kZo+PGhlYWQ+PE1 PCDUqR37soSZnyO0hX4WQWSrODv osMSBSNDwTBbZnrfSuMQ7qxUCfS XJu IC8+QR1yIFRfGqpajRRre8B4wDV 2M82hmo4lTBvloNU8OGQlHqIroz zfi8oxmIa2KZccDunlWgVj KXBzfP40RCD5jX53Fe61cNXlnYU jr9oywIk6NjVaTFYaFWY3yWugLL pek2FtCWDhE86xjXLdy2D8 PFEzfDkyyBVaQcJriYI7hQ7dVVf msmhnz3phqgqeHmc4ir25sODdm2 L2vHF7R0OlbuE5CIRttXCe KgxotCXKaL8vlkyii5ghwsebRmV iUFVlIXu7APi4UTDuhRmeSuBzXR 96MXM2TFXghiQpN9TdLNMv xMpzUjG8y0M2Wi4IS9WMQgccN7W NTUFSWTwvdGQ+FL53pm05S2TsAi lgJbw8XOLvCHX5nHV4nT2d NPUgHXbjs5I7eKN6J3TrnyAjdo1 vn8qyAZNzQJncH84mzESum6N0EJ UplKU1RXWosSerQbYviG62 Oyc+MTEhfNsiy1OrKlhoa3cwy8z tzLc9TrpqBXIiikWouZkuXBD7p1 CoWo3rSZTbkFW6hVH1jQ4u UwShKtI2DRqyR846LkCwmONgDnx gR04fD5TisHI+WOKnNlx2XOKkkP clQI9eX4BdAESpvjmpmQUo yRdyNC9kCULojhocCIFxhW0dSFU bH6s4RiDvJhY2VUzkS9QoRINzde syKg06nU5yYfBzXgW3SNxx D9UzdaT5WQHhmPBlSEjrLIQ4L26 dm7P9RLEjRRHuRCL2tNP3xU7hsW lnbjogbGVmdDsgdmVydGlj QFdxTVlzC341GRKyxHzuHpLkBMn uZyBEYXRlOiAgMDYvMDUvMjAyND wvdGQ+LLBvCPW6yIerDAVp lIAtAKmuXr1ilEmdzCnxUQ2aSSX habcrEGRcmX0wASBxyZKjiTwkKC 5mPUUfqboex280BiNaEEQ9 NAXibBPaV2MdgI7xRaPnHZMaCRC jN9WapOWrCSfyA601HUgvPxB6XE AeaxTsH8JvMZXcwHecQgC5 z0O8Mn0An2HyawevV0SxzFOsNlA fEvtpNVc6T1XhWksdvVO+PC90YW IhBG46ZMm7XPW1sEfzIMbv RKPfW0ZxyU1jCqLeCLIvWJEyJyv +PHRhYmxlIHdpZHRoPScxMDAlJy NucNugZU6qRo9eRBRwBJIk gOphuCAcZpRxb7uhMAEvSIeeZB3 ckQetV3QacML6ABCld9m0Lk40E6 8bA6QfcLW+JBQreAH8vUB2 kD4nAdXkKwL4CAuzW003GzVbfHX kDkhux9guh2hhgHm6VbL6UIYdec LcsNjpRHP5s4ZyFc93B26d IHdpZHRoPSIxNSUiIHZhbGlnbj0 kvP1hWj0+QVVwyDJ2fHM9zA3eNz XqEqW9YAnkW757IxFoxSCj Lhupb6urb7xowBv6ObEnKMIsekB fiVmxBJO9h1NuDk44H3RwgAwco0 BoUco6fj34uARhi2T9uMV8 M1JfAIQjeyhsvCNwlYtzUG1tXIC yrbijELFobW7lRRDaQ3l2StPwIv R2AZvwB5YqkaH7OLLizJMz YWRzqBKPkF2whpdmc2cklicqZdR bOAAjEOy7BEt4VIWmgUycFtMwWM Q3SkJ5XSQ0bHRzqX0ghWgs wwscuI3wSuc+BEP8kGNiaTSOFL5 lOjwvdGQ+CERvBBY7xKocTRhmHA FtaM1eYIShA0b6QrQwIvD8 SZkfI9UupdC8IFLlhYOgOHDmyHD LkK8pebijc7nrfktiCfTwUKKcBR i9SOp0LDYpaJgmSsFuINC5 QlT2JBQ3vGCgvR2roHgjyijuzZ4 wOyc+UalyoQbtOML2JBg5W6BkUj l2KIDdvKsaJR9mgXSfOFyp Kl0gtUprhUduED4mWYGgwtify83 0UlFfc6smTPRmoRIwBTspURF6L7 2zi6P7NJTlAXHkDKB6pNL3 sT3xoMpiqbftpYXxwQdxkiRjmXi dKPffNHzcV701DLBgwQemVuEtKK y2P2LySog0GYDcrEodHV0v nOGfMBkvKk6mmDnufSyxFB8sZHM eskoqu542MpMsr3btHWQzoTOgCH nrKEM0N40uo3O6BZFoNYZo NPK3mXW4nT0wiAhxqofbmCObjPb rgiPumDlcOPnnVBbrG698SZUiaJ tgWfZetOp0S3IhTpx3UABn iEtpRN4thAFfUMemZd0qbObotKj kDW2gOKAxawtjm036EqKvh3gyGD HnvZSbTVpmUWB3G23hn7S5 BYZsYKFoQMJ7rVP2sQ1abXngmsx gbGVmdDsgdmVydGljYWwtYWxpZ2 46IHRvcDsnPlBhdGllbnQg ZOzuHYb1O9CjYmdttIB+ZR43XMI pRZ83oPPxtCZhm4nvoWx9OrPaQP HoFGK5wTljWHyzk3RzQAEm O74bfUIch0E5CPKawDeofFLaPdV ntWC5zH4gHLjkntvrq7wlimiiIo lxi6pzdq71sV48A61tHWnx JHCqILMpDPOfCRWluLntru9leX0 wIi8+UNQfhSL8vMV0rN2hMTVcNv L6BDfmT198RgEmuXXmKpeh j3ras5wbtUp7DbJ5VOGhkuHarJt cMEG7q2TsUd98K15tFKyrCNSqHU EqBANxPUZgdMcxdf1fiY3j Ii8+LGPcwOV3wZV2aN0lDpSlKrB 7IWwnM183MoAsjOFdOuhaK79jP2 JvdXA+HDGzUns4HTAwaVqa XP9ssRYnHIqnRi3uWMM7BfAvVtO xLGkxG0GfOVNaotpoorovzCG2PF ScLNIjuK40Ci6gvIbiQJOp hHWGoV9mblzwa3frsgceAcBjUNX eHLk3CIv3NTPlwHclWhGoHXV1Gs R1NGM0rYOepA8zaWmhyoii sB6iA3OlOLLfzqmiHb03mZ0wGkN wTqX3PQerQde+SG7OHOKKXEAJPt VOREEgUzwvdGQ+PHRkIHN0 kEteAAhbPENahL7zLPXgK8j0XnS oKiU4CBtxE3VsDKKowhaxUz76bB 9mWyBbMiI0ONiwO5HtfrF9 BNPlxPMhKVjrWLO5Q73ha6H3QXE rWLLmVMU6gJI7wD0upEoraxhqqP VmdDsgdmVydGljYWwtYWxp L150FMGgqEgpFzJyXrYlVhI3XKZ 6D6FmWqf9ITCzgLhyPN5cnWQqSD irRc2qiLosnZllXO2hDECo ogrjSRDyxV6sKFOioEVzpJydTK4 dLWGtnekea330VvXpNAS2SKDpzA MeE6FprR0vEqKpTMWmIBWr K9YzqHHaWTrlZ699FMhjUhK4QMI kesKmG0QrRBLsjVftPsM0v8B7Lj 43MSBZZWFyczwvdGQ+PHRk DNS6mQknIWkmUGWgbN4kSPKyZ3u 3TgVbReA8WJwqD9XzCSPmajkpCb 01vC9qJiQhBiN1CQwiA4Je hfR3IFApjHSiYBdkDON7C19ku5W 8QQIsTQRvFGP7gZZ0iH6bxLlbgd ogbGVmdDsgdmVydGljYWwt UDglB351RXWanCkwKtRZXPIYBAd vdGQ+HIMyXCF7uEdfUJdeBYAjpZ 9mGJEeU8j8IpUdWuY4LAgs R2McHFEfpgubOt94iC3uXfPbWkF 8IEhpQ2HqwlW2XRQdjVAfCVtyDI Z0C42aa4X4ZFJdJLFsDDD9 qBD2dL0ggPmoxkbyaVTqwDbehlJ cmNhgYViiKVvtX700WIFhbJioDn 2PSP52XQ88D2PaMzuufDTp bGU+PHRhYmxlIHdpZHRoPScxMDA xYcKrgLozZA4wTe9sZUCfEUWdoL bfcXEiBnEjg7hyDXWjCNkj EP4fmEypT4DsnBS9ZWWnv5o0Ps7 2I01lM5RoxFO+GJLcnWW2pAX9nN 1fWhHlHdE2OZeyA616HuXu gCEgRmclr7swt1mayIo1BpEzJHF ptrQcdKycUEK6d1ChTb87A85bWT dpZHRoPSIyMCUiIHZhbGln fh5ubD8wTt9+CSQkcTP6bRO4yM4 bMrRfTuV6UXiaV986KjZdfZUgJc atK50bW5GowPA+PHRyPjx0 FIFluTgsTE3ivQMzKPjwRx3rCMX 6QaYsHtIpTWmyC5ScIGCoosrjrf rqtLY7BCGfOOPaeA70Gr8k lMptKp2eQTMjKDM1BCTfeHUcD6H vpT1rOeIiFXUmGPSxY0LmiGYjKS fxU808TPawBqP8KTHkbzLo V1YwOOEroNvsEkY1g0V1Hb7YtDz ytMKzXJ2tGmHwOIh4H2KmYdd8IH ZgySmnFJ1vjWDzDFggAd9h dDoyoKhnGK2qFCTpbqyjo876LcY vw8xkRPSwsIXhPPxsYHV6F86ef9 D4XWHtOQGqKSQ4vNM2aO3s bGlnbjogbGVmdDsgdmVydGljYWw dUJcqT156UBLauLmcJkLMOkh9D7 OdVms9DSQngWmqQB0pyRMh PWusYm0ycIrctKnnEL4sXOAjpop kw063LlKbo3kbLCIniQBsICykQU P3N45gq8H3GKPpQMEkPGZ5 kEU3kR8opRvyfjgxeJTynLnkyeC rsPakAEtpYDdiI891TETheSxuGq 7RHoo6J5XbNyc8MSLyiHdy WL1ofUMfRRmuOh9awIribBrdRX7 oGZMvzmnkh900NhWbs6fyALThfI KoFWkwNVY1B23ku7U0QQBq VFXeDMT4yFL6rK6xaCyuaktulKH jfNuwdbJojCpaOOmyDMeoR297EX RvcDsnPlBheWVyOjwvdGQ+ IX64ch37H9HeInbxDvv6ZRGyNZL 7jOZ0tZ1rQCDxOBzdr1K9cOX5O0 TclzHqmd6nq8seQAVuNHuu Y29 (more content not included)... [facility] Reminder Messageson 03-23-20 24 Reminder Messages - From: MIGUEL BROCK DO To: [facility] Clinical Pool ([facility]); Sent: 03/22/2024 16:38:55 EDT ! Show up: [...] Signed on: 03/24/2024 14:53 EDT] Erlinda Odom [facility] Reminder Messages - From: MIGUEL BROCK DO To: [facility] Clinical Pool ([facility]); Sent: 03/22/2024 16:36:57 EDT ! Show up: 03/22/2024 16:36:57 EDT Subject: Results Follow Up Actions: Call the patient with result(s) Due Date/Time: 03/23/2024 16:36:00 EDT Reminder Comments: looks good birads 2 recheck 1 year Results: Date Result Type Result Name 03/22/2024 16:30 Radiology US Breast Left Complete. lvm with results and recommendations [facility] Reminder Messages - From: MIGUEL BROCK DO To: [facility] Clinical Pool ([facility]); Sent: 03/22/2024 16:38:13 EDT ! Show up: 03/22/2024 16:38:13 EDT Subject: Results Follow Up Actions: Call the patient with result(s) Due Date/Time: 03/23/2024 16:37:00 EDT Reminder Comments: looks good birads 2 repeat in 1 year Results: Date Result Type Result Name 03/22/2024 16:25 Radiology AR Mammo Diagnostic 3D Bilateral. LVM with results and recommendations Normal [facility] Mammo Diagnostic 3D Bilat eral.on 03-22-2024 AR Mammo Diagnostic 3D Bilateral. MAMMOGRAM DIAGNOSTIC 3-D [...] Mildly scattered benign-appearing calcifications bilaterally. R2 image Chemical Engineering Intern was utilized for this study. IMPRESSION: No [...] 2-Benign finding Recommendation: Normal interval follow-up Normal [facility] US Breast Left Complete.on 0 03-22-2024 [...] MD 03/22/24 4:28 pm Technologist: SMITHA DIEGO [facility] Outside Recordson 03-14-2024 Outside Records [id number]#[id number] [facility] Lab - Other Lab Resultson Lab - Other Lab Results [id number]#1.00OTGTIFF [facility] AFB CULTURE(CONCENTRATED)on 03-01-2024 Mycobacterium sp identified Org specific cx Nom (Unsp spec) SPECIMEN NOTES SPECIMEN 1 AFB SMEAR NO ACID FAST BACILLI (CONCENTRATED SMEAR) CULTURE RESULTS NO ACID FAST BACILLI ISOLATED IN 8 WEEKS Normal [facility] Comment on above: Performed By: #### 5 43-9 ####[facility] ([id number])[address] [address] AND DIFFon 2023 BODY FLUID COMMENT Interpreta tion--- ----- Normal [facility] Comment on above: Result Comment: Refe rence values for this fluid type are undefined, as fluid accumulation is considered abnormal. Assorted lining cells present. Performed By: #### B FCT #### [facility] ([id number]) [address], [address] [place] [address] FLUID CLARITY CLEAR Normal [facility] Comment on above: Performed By: #### B FCT #### [facility] ([id number]) [address] [place] [address] FLUID COLOR COLORLESS Normal [facility] Comment on above: Performed By: #### B FCT #### [facility] ([id number]) [address], [address] [place] [address] FLUID LYMPHOCYTE 15 % Normal [facility] Comment on above: Performed By: #### B FCT #### [facility] ([id number]) [address], [address] [place] [address] FLUID NEUTROPHILS 50 % Normal [facility] Comment on above: Performed By: #### B FCT #### [facility] ([id number]) [address], [address] [place] [address] 42 /uL Normal [facility] Comment on above: Performed By: #### B FCT #### [facility] ([id number]) [address], [address] [place] [address] FLUID SPECIMEN TYPE BRONCHOALVEOLAR LAVAGE Normal [facility] Comment on above: Result Comment: RIGH T LUNG, MIDDLE LOBE Performed By: #### B FCT #### [facility] ([id number]) [address], [address] [place] [address] MACROPHAGES 35 % Normal [facility] Comment on above: Performed By: #### B FCT #### [facility] ([id number]) [address], [address] [place] [address] 38 /uL Normal [facility] Comment on above: Performed By: #### B FCT #### [facility] ([id number]) [address], [address] [place] [address] Cytologyon 03-01-2024 Cytology Normal [facility] Comment on above: Result Comment: [facility] [address] [place] [address] Cytology Consultation Patient Name:JAZZMINE PATEL:1950 (Age: 73)Gender:FTaken:4Reported:03/03/2024 10:42Physician(s):EILEEN FONSECA DO ([phone])Copy To: Rec. #:[id number]: #[id number] Final Cytologic Diagnosis 1. 4L fine needle aspirate: No malignant epithelial cells identified. Adequate lymphoid sample 2. Right middle lobe bronchoalveolar lavage: No malignant cells identified. [facility]/03/03/2024 [place] [address], License number: [id number].Electronically Signed Out By Sangeeta German MD Clinical History Adenocarcinoma of lingula. lung cancer, need for staging Rapid On Site Interpretation 1. 4L fine needle aspirate: Passes 1-3: Negative, adequate lymphoid cells Dr. Cortes Interpretation provided at [facility], [address] [place] [address]. Gross Description 1.Prepared in Endoscopy were 6 [...] 4L fine needle aspirate Cell block for Non-operator bearer systems (M), Level 2 H&E, Slides Made x 6 2: Right middle lobe bronchoalveolar lavage Cell block for Non-operator bearer systems (M), Level 2 H&E, Non TOP TILE DECORATOR ThinPrep Fee Code(s): 1; 29101, 93084, 46550 2; 58145, 52580 FUNGAL CULTUREon 03-01-2024 Fungus identified Cx Nom (Unsp spec) SPECIMEN NOTES SPECIMEN 1 FUNGAL SMEAR NO FUNGAL ELEMENTS SEEN ON CONCENTRATED SMEAR CULTURE RESULTS NO FUNGUS ISOLATED AFTER 4 WEEKS Normal [facility] Comment on above: Performed By: #### 5 80-1 ####[facility] ([id number])[address] [facility], [address] [place] [address] Glucose Glucometer (BldC) [M ass/Vol]on 03-01-2024 Glucose [Mass/Vol] 124 mg/dL High 65-99 [facility] LOWER RESPIRATORY CULTUREon 03-01-2024 Bacteria identified Respiratory [...] Antibiotic Interpretation UNIQUE Status AZITHROMYCIN R F CEFOTAXIME(meningitis) S 0.5 F CEFOTAXIME S 0.5 F CLSI guidelines interpret Cefotaxime MICs based upon meningitis vs. nonmeningitis criteria. CEFTRIAXONE(meningitis) S 0.5 F CEFTRIAXONE S 0.5 F CLSI guidelines interpret Ceftriaxone MICs based upon meningitis vs. nonmeningitis criteria. ERYTHROMYCIN R >=8 F LEVOFLOXACIN S 0.5 F VANCOMYCIN S <=0.12 F PENICILLIN(IV,meningitis) R 1 F PENICILLIN (oral) I 1 F High doses of Penicillin may effectively treat intermediately susceptible cases of Streptococcus pneumoniae except when complicated (e.g. as in meningitis, empyema, or endocarditis). PENICILLIN(IV,nonmening.) S 1 F Susceptible [facility] Comment on above: Performed By: #### 6 24-7 ####[facility] ([id number])[address] [facility], [address] [place] [address] BASIC METABOLIC PANLon 02-25 Anion gap [Moles/Vol] 10 mmol/L Normal 5-15 [facility] Comment on above: Performed By: #### C BCA, BMP, 62225-1, THYR #### [facility] ([id number]) [address], [address] [place] [address] Calcium [Mass/Vol] 8.5 mg/dL Normal 8.5-10.5 [facility] Comment on above: Performed By: #### C BCA, BMP, 09440-2, THYR #### [facility] ([id number]) [address], [address] [place] [address] Chloride [Moles/Vol] 99 mmol/L Normal 98-109 [facility] Comment on above: Performed By: #### C BCA, BMP, 16208-9, THYR #### [facility] ([id number]) [address], [address] [place] [address] CO2 [Moles/Vol] 32 mmol/L Normal 22-32 [facility] Comment on above: Performed By: #### C BCA, BMP, 81116-3, THYR #### [facility] ([id number]) [address], [address] [place] [address] Creatinine [Mass/Vol] 0.90 mg/dL Normal 0.40-1.00 [facility] Comment on above: Result Comment: METH OD TRACEABLE TO IDMS STANDARD Performed By: #### C BCA, BMP, 76915-3, THYR #### [facility] ([id number]) [address], [address] [place] [address] GFR/1.73 sq M.predicted among non-blacks MDRD (S/P/Bld) [Vol rate/Area] 68 mL/min/{1.73_m2} Normal >59 [facility] Comment on above: Result Comment: Reported eGFR is based on the CKD-EPI 2020 equation that does not use a race coefficient. Performed By: #### C BCA, BMP, 02564-8, THYR #### [facility] ([id number]) [address], [address] [place] [address] Glucose [Mass/Vol] 92 mg/dL Normal 65-99 [facility] Comment on above: Performed By: #### C DMITRY PATEL, 84840-6, THYR #### [facility] ([id number]) [address], [address] [place] [address] Potassium [Moles/Vol] 4.0 mmol/L Normal 3.5-5.0 [facility] Comment on above: Performed By: #### C DMITRY PATEL, 74329-2, THYR #### [facility] ([id number]) [address], [address] [place] [address] Sodium [Moles/Vol] 141 mmol/L Normal 134-146 [facility] Comment on above: Performed By: #### C DMITRY PATEL, 62086-9, THYR #### [facility] ([id number]) [address], [address] [place] [address] Urea nitrogen [Mass/Vol] 21 mg/dL Normal 5-27 [facility] Comment on above: Performed By: #### C DMITRY PATEL, 31830-1, THYR #### [facility] ([id number]) [address], [address] [place] [address] CBC AND AUTO DIFFon 02-26-20 24 ABSOLUTE BASOPHIL 0.1 X10E9/L Normal 0.0-0.2 [facility] Comment on above: Performed By: #### P INR, 15367-8 #### [facility] ([id number]) [address] [place] [address], [place] [address] ABSOLUTE NEUTROPHIL 3.8 X10E9/L Normal 1.5-6.6 [facility] Comment on above: Performed By: #### P INR, 25609-6 #### [facility] ([id number]) [address] [place] [address] Basophils/100 WBC (Bld) 1.2 % Normal [facility] Comment on above: Performed By: #### P INR, 20205-3 #### [facility] ([id number]) [address] [place] [address] Eosinophils (Bld) [#/Vol] 0.2 10*3/uL Normal 0.0-0.4 [facility] Comment on above: Performed By: #### P INR, 89745-3 #### [facility] ([id number]) [address] [place] [address] Eosinophils/100 WBC (Bld) 2.9 % Normal [facility] Comment on above: Performed By: #### P INR, 66978-6 #### [facility] ([id number]) [address] [place] [address] Erythrocyte distribution width (RBC) [Ratio] 14.3 % Normal 11.5-15.0 [facility] Comment on above: Performed By: #### P INR, 23032-0 #### [facility] ([id number]) [address] [place] [address] Hematocrit (Bld) [Volume fraction] 42.1 % Normal 35-47 [facility] Comment on above: Performed By: #### P INR, 18625-9 #### [facility] ([id number]) [address] [place] [address] Hemoglobin (Bld) [Mass/Vol] 14.4 g/dL Normal 11.7-15.5 [facility] Comment on above: Performed By: #### P INR, 15088-8 #### [facility] ([id number]) [address] [place] [address] Lymphocytes (Bld) [#/Vol] 2.3 10*3/uL Normal 1.0-3.5 [facility] Comment on above: Performed By: #### P INR, 87175-1 #### [facility] ([id number]) [address] [place] [address] Lymphocytes/100 WBC (Bld) 33.4 % Normal [facility] Comment on above: Performed By: #### P INR, 51801-9 #### [facility] ([id number]) [address] [place] [address] MCH (RBC) [Entitic mass] 30.3 pg Normal 27-34 [facility] Comment on above: Performed By: #### P INR, 73162-2 #### [facility] ([id number]) [address] [place] [address]7972 MCHC (RBC) [Mass/Vol] 34.1 g/dL Normal 32-36 [facility] Comment on above: Performed By: #### P INR, 56705-1 #### [facility] ([id number]) [address] [place] [address]808 MCV (RBC) [Entitic vol] 89 fL Normal 80-100 [facility] Comment on above: Performed By: #### P INR, 65137-4 #### [facility] ([id number]) [address] [place] [address] Monocytes (Bld) [#/Vol] 0.5 10*3/uL Normal 0-0.9 [facility] Comment on above: Performed By: #### P INR, 43067-5 #### [facility] ([id number]) [address] [place] [address] Monocytes/100 WBC (Bld) 7.1 % Normal [facility] Comment on above: Performed By: #### P INR, 58114-3 #### [facility] ([id number]) [address] [place] [address]05[address] Neutrophils/100 WBC (Bld) 55.4 % Normal [facility] Comment on above: Performed By: #### P INR, 99780-3 #### [facility] ([id number]) [address] [place] [address]812 Platelet mean volume (Bld) [Entitic vol] 9.1 fL Normal 7-12 [facility] Comment on above: Performed By: #### P INR, 50125-0 #### [facility] ([id number]) [address] [place] [address] Platelets (Bld) [#/Vol] 252 10*3/uL Normal 150-450 [facility] Comment on above: Performed By: #### P INR, 48800-9 #### [facility] ([id number]) [address] [place] [address] 24297 RBC COUNT 4.73 X10E12/L Normal 3.80-5.20 [facility] Comment on above: Performed By: #### P INR, 86233-3 #### [facility] ([id number]) [address] [place] [address]395 WBC (Bld) [#/Vol] 6.9 10*3/uL Normal 4.0-11.0 [facility] Comment on above: Performed By: #### P INR, 13284-3 #### [facility] ([id number]) [address] [place] [address]28[address] HGB A1C (GLYCO-HGB)on 2023 Glucose [Mass/Vol] 140 mg/dL Normal [facility] Comment on above: Performed By: #### C BCA, BMP, 68536-6, THYR #### [facility] ([id number]) [address] [facility], [address] [place] [address] HbA1c (Bld) [Mass fraction] 6.5 % High 4.4-5.6 [facility] Comment on above: Result Comment: NOTE ADA Guidelines Result HgbA1c Normal : less than 5.7 % Prediabetes : 5.7 % to 6.4 % Diabetes : > 6.4 % Use with caution in patients with abnormal hemoglobin variants as the half-life of red blood cells and in vivo glycation rates are affected. Performed By: #### C BCA, BMP, 18615-1, THYR #### [facility] ([id number]) [address] [place] [address], [address] [place] [address] PROTIME AND INRon 02-26-2024 INR Coag (PPP) [Relative time] 1.0 {INR} Normal 0.8-1.1 [facility] Comment on above: Performed By: #### P INR, 77314-7 #### [facility] ([id number]) [address] [place] [address] 39848 PT Coag (PPP) [Time] 11.2 s Normal 9.8-13.2 [facility] Comment on above: Result Comment: NEW REFERENCE RANGE Performed By: #### P INR, 78020-4 #### [facility] ([id number]) [address] [place] [address] 11839 aPTT Coag (PPP) [Time]on aPTT Coag (Bld) [Time] 36 s Normal 26-37 [facility] Comment on above: Result Comment: NEW REFERENCE RANGE Performed By: #### P INR, 66936-0 #### [facility] ([id number]) [address] [place] [address] 06494 BASIC METABOLIC PANLon 02-22 Anion gap [Moles/Vol] 12 mmol/L Normal 5-15 [facility] Comment on above: Performed By: #### P INR, 82875-6 #### [facility] ([id number]) [address] [place] [address] 97946 Calcium [Mass/Vol] 8.0 mg/dL Low 8.5-10.5 [facility] Comment on above: Performed By: #### P INR, 65141-3 #### [facility] ([id number]) [address] [place] [address] 89038 Chloride [Moles/Vol] 100 mmol/L Normal 98-109 [facility] Comment on above: Performed By: #### P INR, 56711-7 #### [facility] ([id number]) [address] [place] [address] 15680 CO2 [Moles/Vol] 29 mmol/L Normal 22-32 [facility] Comment on above: Performed By: #### P INR, 32041-3 #### [facility] ([id number]) [address] [place] [address] 72223 Creatinine [Mass/Vol] 0.88 mg/dL Normal 0.40-1.00 [facility] Comment on above: Result Comment: METH OD TRACEABLE TO IDMS STANDARD Performed By: #### P INR, 78471-4 #### [facility] ([id number]) [address] [place] [address] 29904 GFR/1.73 sq M.predicted among non-blacks MDRD (S/P/Bld) [Vol rate/Area] 70 mL/min/{1.73_m2} Normal >59 [facility] Comment on above: Result Comment: Reported eGFR is based on the CKD-EPI 2020 equation that does not use a race coefficient. Performed By: #### P INR, 18508-5 #### [facility] ([id number]) [address] [place] [address] 71874 Glucose [Mass/Vol] 129 mg/dL High 65-99 [facility] Comment on above: Performed By: #### P INR, 10219-3 #### [facility] ([id number]) [address] [place] [address] 87460 Potassium [Moles/Vol] 4.1 mmol/L Normal 3.5-5.0 [facility] Comment on above: Performed By: #### P INR, 13050-2 #### [facility] ([id number]) [address] [place] [address] 81396 Sodium [Moles/Vol] 141 mmol/L Normal 134-146 [facility] Comment on above: Performed By: #### P INR, 09963-8 #### [facility] ([id number]) [address] [place] [address] 35528 Urea nitrogen [Mass/Vol] 16 mg/dL Normal 5-27 [facility] Comment on above: Performed By: #### P INR, 62181-2 #### [facility] ([id number]) [address] [place] [address] 98800 Consultation/Specialist Note on 02-23-2024 Consultation/Special ist Note [id number] Normal [facility] Lipid 1996 panelon 4 Cholesterol [Mass/Vol] 124 mg/dL Low 150-200 [facility] Comment on above: Performed By: #### P INR, 16911-7 #### [facility] ([id number]) [address] [place] [address] 55178 Cholesterol in HDL [Mass/Vol] 54 mg/dL Normal >39 [facility] Comment on above: Result Comment: HDL <40 mg/dL - High Risk HDL > or = 40mg/dL- Desirable HDL >60 mg/dL - Negative Risk Performed By: #### P INR, 44917-4 #### [facility] ([id number]) [address] [place] [address] 61634 Cholesterol in LDL [Mass/Vol] 50 mg/dL Normal <130 [facility] Comment on above: Result Comment: LDL <100 mg/dL - Desirable LDL >160 mg/dL - High Risk Performed By: #### P INR, 68801-7 #### [facility] ([id number]) [address] [place] [address] 98696 Cholesterol in VLDL [Mass/Vol] 20 mg/dL Normal 0-30 [facility] Comment on above: Performed By: #### P INR, 18782-1 #### [facility] ([id number]) [address] [place] [address] 97284 CHOLESTEROL:HDL 2.3 Normal 1.0-5.0 [facility] Comment on above: Performed By: #### P INR, 91050-2 #### [facility] ([id number]) [address] [place] [address] 78457 Triglyceride [Mass/Vol] 98 mg/dL Normal 27-150 [facility] Comment on above: Performed By: #### P INR, 87717-9 #### [facility] ([id number]) [address] [place] [address] 72080 MR BRAIN W WO CONTon 024 MR [...] You MD on 02/23/2024 12:27 PM Normal [facility] THYROID PROFILEon 02-23-2024 Free T4 [Mass/Vol] 0.67 ng/dL Normal 0.61-1.60 [facility] Comment on above: Performed By: #### P INR, 45493-8 #### [facility] ([id number]) [address] [place] [address] 00818 TSH 0.50 uIU/mL Normal 0.49-4.67 [facility] Comment on above: Performed By: #### P INR, 26037-1 #### [facility] ([id number]) [address] [place] [address] 27470 Lab - Other Lab Resultson Lab - Other Lab Results [id number]#1.00OTGTIFF [facility] Rad - Other Radiology Report on 02-16-2024 Rad - Other Radiology Report [id number]#1.00OTGTIFF Normal [facility] PET CT SKULL TO THIGHon 01-25 [...] Kumar MD on 02/15/2024 9:25 AM Normal [facility] Lab - Other Pathology Report on 02-04-2024 Lab - Other Pathology Report [id number]#1.00OTGTIFF [facility] Outside Recordson 02-04-2024 Outside Records [id number]#1.00OTGTIFF [facility] CBC AND AUTO DIFFon 02-01-20 24 ABSOLUTE BASOPHIL 0.1 X10E9/L Normal 0.0-0.2 [facility] Comment on above: Performed By: #### C BCA, CMP, 94484-1, 75648-7 #### [facility] ([id number]) [address] [place] [address], [place] [address] ABSOLUTE NEUTROPHIL 6.5 X10E9/L Normal 1.5-6.6 [facility] Comment on above: Performed By: #### C JORGE CMP, , #### [facility] ([id number]) [address] [place] [address] 69484 Basophils/100 WBC (Bld) 0.7 % Normal [facility] Comment on above: Performed By: #### C JORGE, CMP, , #### [facility] ([id number]) [address] [place] [address] 81347 Eosinophils (Bld) [#/Vol] 0.2 10*3/uL Normal 0.0-0.4 [facility] Comment on above: Performed By: #### Neymar PATEL, CMP, , #### [facility] ([id number]) [address] [place] [address] 37722 Eosinophils/100 WBC (Bld) 1.9 % Normal [facility] Comment on above: Performed By: #### Neymar PATEL, CMP, , #### [facility] ([id number]) [address] [place] [address] 74925 Erythrocyte distribution width (RBC) [Ratio] 14.1 % Normal 11.5-15.0 [facility] Comment on above: Performed By: #### Neymar PATEL, CMP, , #### [facility] ([id number]) [address] [place] [address] 56709 Hematocrit (Bld) [Volume fraction] 38.7 % Normal 35-47 [facility] Comment on above: Performed By: #### Neymar PATEL, CMP, , #### [facility] ([id number]) [address] [place] [address] 56125 Hemoglobin (Bld) [Mass/Vol] 13.0 g/dL Normal 11.7-15.5 [facility] Comment on above: Performed By: #### C JORGE, CMP, , #### [facility] ([id number]) [address] [place] [address] 07441 Lymphocytes (Bld) [#/Vol] 2.2 10*3/uL Normal 1.0-3.5 [facility] Comment on above: Performed By: #### C BCA, CMP, , #### [facility] ([id number]) [address] [place] [address] 06760 Lymphocytes/100 WBC (Bld) 22.5 % Normal [facility] Comment on above: Performed By: #### Neymar PATEL, CMP, , #### [facility] ([id number]) [address] [place] [address] 36787 MCH (RBC) [Entitic mass] 30.0 pg Normal 27-34 [facility] Comment on above: Performed By: #### Neymar PATEL, CMP, , #### [facility] ([id number]) [address] [place] [address] 62034 MCHC (RBC) [Mass/Vol] 33.7 g/dL Normal 32-36 [facility] Comment on above: Performed By: #### C BCA, CMP, , #### [facility] ([id number]) [address] [place] [address] 11932 MCV (RBC) [Entitic vol] 89 fL Normal 80-100 [facility] Comment on above: Performed By: #### Neymar BCA, CMP, , #### [facility] ([id number]) [address] [place] [address] 80966 Monocytes (Bld) [#/Vol] 0.7 10*3/uL Normal 0-0.9 [facility] Comment on above: Performed By: #### C BCA, CMP, , 11009-0 #### [facility] ([id number]) [address] [place] [address] 17604 Monocytes/100 WBC (Bld) 7.4 % Normal [facility] Comment on above: Performed By: #### C BCA, CMP, , #### [facility] ([id number]) [address] [place] [address] 66784 Neutrophils/100 WBC (Bld) 67.5 % Normal [facility] Comment on above: Performed By: #### Neymar BCA, CMP, , #### [facility] ([id number]) [address] [place] [address] 63238 Platelet mean volume (Bld) [Entitic vol] 8.4 fL Normal 7-12 [facility] Comment on above: Performed By: #### Neymar BCA, CMP, , #### [facility] ([id number]) [address] [place] [address] 38383 Platelets (Bld) [#/Vol] 256 10*3/uL Normal 150-450 [facility] Comment on above: Performed By: #### Neymar BCA, CMP, , 32899-6 #### [facility] ([id number]) [address] [place] [address] 97277 RBC COUNT 4.34 X10E12/L Normal 3.80-5.20 [facility] Comment on above: Performed By: #### Neymar BCA, CMP, , #### [facility] ([id number]) [address] [place] [address] 30689 WBC (Bld) [#/Vol] 9.6 10*3/uL Normal 4.0-11.0 [facility] Comment on above: Performed By: #### C BCA, CMP, , #### [facility] ([id number]) [address] [place] [address] 15389 COMPREHENSIVE METABOLIC PANE Kemal 02-01-2024 Albumin [Mass/Vol] 3.4 g/dL Normal 3.2-5.3 [facility] Comment on above: Performed By: #### C BCA, CMP, , #### [facility] ([id number]) [address] [place] [address] 87237 ALP [Catalytic activity/Vol] 63 U/L Normal 39-130 [facility] Comment on above: Performed By: #### C BCA, CMP, , #### [facility] ([id number]) [address] [place] [address] 00972 ALT [Catalytic activity/Vol] 31 U/L Normal 0-31 [facility] Comment on above: Performed By: #### C BCA, CMP, , 06625-5 #### [facility] ([id number]) [address] [place] [address] 17560 Anion gap [Moles/Vol] 6 mmol/L Normal 5-15 [facility] Comment on above: Performed By: #### C BCA, CMP, 15951-8, 87427-2 #### [facility] ([id number]) [address] [place] [address] 68546 AST [Catalytic activity/Vol] 29 U/L Normal 0-41 [facility] Comment on above: Performed By: #### C BCA, CMP, 45306-1, #### [facility] ([id number]) [address] [place] [address] 09536 Bilirubin [Mass/Vol] 0.4 mg/dL Normal 0.3-1.2 [facility] Comment on above: Performed By: #### C BCA, CMP, , #### [facility] ([id number]) [address] [place] [address] 54216 Calcium [Mass/Vol] 6.8 mg/dL Critically low 8.5-10.5 [facility] Comment on above: Performed By: #### C BCA, CMP, , #### [facility] ([id number]) [address] [place] [address] 52891 Chloride [Moles/Vol] 103 mmol/L Normal 98-109 [facility] Comment on above: Performed By: #### C BCA, CMP, , #### [facility] ([id number]) [address] [place] [address] 40674 CO2 [Moles/Vol] 27 mmol/L Normal 22-32 [facility] Comment on above: Performed By: #### C BCA, CMP, , #### [facility] ([id number]) [address] [place] [address] 40229 Creatinine [Mass/Vol] 0.88 mg/dL Normal 0.40-1.00 [facility] Comment on above: Result Comment: METH OD TRACEABLE TO IDMS STANDARD Performed By: #### C BCA, CMP, , 43446-6 #### [facility] ([id number]) [address] [place] [address] 06457 GFR/1.73 sq M.predicted among non-blacks MDRD (S/P/Bld) [Vol rate/Area] 70 mL/min/{1.73_m2} Normal >59 [facility] Comment on above: Result Comment: Reported eGFR is based on the CKD-EPI 2020 equation that does not use a race coefficient. Performed By: #### C MOJGAN PATEL, , #### [facility] ([id number]) [address] [place] [address] 76883 Glucose [Mass/Vol] 159 mg/dL High 65-99 [facility] Comment on above: Performed By: #### C MOJGAN PATEL, , #### [facility] ([id number]) [address] [place] [address] 88127 Potassium [Moles/Vol] 3.4 mmol/L Low 3.5-5.0 [facility] Comment on above: Performed By: #### C MOJGAN PATEL, , #### [facility] ([id number]) [address] [place] [address] 62369 Protein [Mass/Vol] 7.0 g/dL Normal 6.0-8.0 [facility] Comment on above: Performed By: #### C MOJGAN PATEL, , #### [facility] ([id number]) [address] [place] [address] 87717 Sodium [Moles/Vol] 136 mmol/L Normal 134-146 [facility] Comment on above: Performed By: #### C JORGE CMP, , #### [facility] ([id number]) [address] [place] [address] 43498 Urea nitrogen [Mass/Vol] 15 mg/dL Normal 5-27 [facility] Comment on above: Performed By: #### C JORGE CMP, , #### [facility] ([id number]) [address] [place] [address] 66587 MAGNESIUMon 02-01-2024 Magnesium [Mass/Vol] 1.9 mg/dL Normal 1.8-2.6 [facility] Comment on above: Performed By: #### P INR, 85825-5 #### [facility] ([id number]) [address] [place] [address] 38982 TROPONIN Ion 02-01-2024 Troponin I.cardiac [Mass/Vol] 0.04 ng/mL Normal 0.00-0.04 [facility] Comment on above: Performed By: #### C BCA, CMP, 80042-0, 53214-6 #### [facility] ([id number]) [address] [place] [address] 06294 XR CHEST 2 VWSon 02-01-2024 XR CHEST [...] Barnard MD on 02/01/2024 12:51 PM Normal [facility] Outside Recordson 01-27-2024 Outside Records [id number]#1.00OTGTIFF Normal [facility] AFB CULTURE(CONCENTRATED)on 01-26-2024 Mycobacterium sp identified Org specific cx Nom (Unsp spec) AFB SMEAR NO ACID FAST BACILLI (CONCENTRATED SMEAR) CULTURE RESULTS NO ACID FAST BACILLI ISOLATED IN 8 WEEKS Normal [facility] Comment on above: Performed By: #### 5 43-9 #### [facility] ([id number]) [address], [address] [place] [address] AND DIFFon 2023 BODY FLUID COMMENT Interpreta tion--- ----- Normal [facility] Comment on above: Result Comment: Refe rence values for this fluid type are undefined, as fluid accumulation is considered abnormal. Performed By: #### B FCT #### [facility] ([id number]) [address] [place] [address] FLUID CLARITY HAZY Normal [facility] Comment on above: Performed By: #### B FCT #### [facility] ([id number]) [address] [place] [address] FLUID COLOR COLORLESS Normal [facility] Comment on above: Performed By: #### B FCT #### [facility] ([id number]) [address] [place] [address] FLUID NEUTROPHILS 98 % Normal [facility] Comment on above: Performed By: #### B FCT #### [facility] ([id number]) [address] [place] [address] 42 /uL Normal [facility] Comment on above: Performed By: #### B FCT #### [facility] ([id number]) [address] [place] [address] FLUID SPECIMEN TYPE BRONCHOALVEOLAR LAVAGE Normal [facility] Comment on above: Performed By: #### B FCT #### [facility] ([id number]) [address] [place] [address] MACROPHAGES 2 % Normal [facility] Comment on above: Performed By: #### B FCT #### [facility] ([id number]) [address] [place] [address] 2180 /uL Normal [facility] Comment on above: Performed By: #### B FCT #### [facility] ([id number]) [address] [place] [address], [address] [place] [address] Cytologyon 01-26-2024 Cytology Normal [facility] Comment on above: Result Comment: [facility] [address] [place] [address] Cytology Consultation Patient Name:JAZZMINE PATEL:1950 (Age: 73)Gender:FTaken:01/26/2024eported:02/02/2024 15:31Physician(s):EILEEN FONSECA DO ([phone])Copy To: Rec. #:[id number]: #[id number] Final Cytologic Diagnosis Bronchoalveolar lavage, lingula: Atypical cells are present. cjb/02/02/2024 Interpretation performed at [facility], [address] [place] [address], License number: [id number].Electronically Signed Out By Breonna Molina MD Clinical History Langular obstruction and chronic cough. Gross Description Received was 20mL of cloudy colorless fluid unfixed labeled as Homler, BAL, lingula . CytoLyt added in lab. Specimen placed in formalin at 17:00 and had a total fixation time of 8 hours. Source of Specimen Bronchoalveolar lavage, lingula Cell block for Non-operator bearer systems (M), Level 2 H&E, Non TOP TILE DECORATOR ThinPrep Fee Code(s): 1; 99830, 83123 FUNGAL CULTUREon 01-26-2024 Fungus identified Cx Nom (Unsp spec) FUNGAL SMEAR NO FUNGAL ELEMENTS SEEN ON CONCENTRATED SMEAR CULTURE RESULTS NO FUNGUS ISOLATED AFTER 4 WEEKS Normal [facility] Comment on above: Performed By: #### 5 80-1 #### [facility] ([id number]) [address] [place] [address], [address] [place] [address] Glucose Glucometer (BldC) [M ass/Vol]on 01-26-2024 Glucose [Mass/Vol] 71 mg/dL Normal 65-99 [facility] Glucose [Mass/Vol] 73 mg/dL Normal 65-99 [facility] LOWER RESPIRATORY CULTUREon 01-26-2024 Bacteria identified Respiratory [...] Antibiotic Interpretation UNIQUE Status AZITHROMYCIN R F CEFOTAXIME(meningitis) S 0.5 F CEFOTAXIME S 0.5 F CLSI guidelines interpret Cefotaxime MICs based upon meningitis vs. nonmeningitis criteria. CEFTRIAXONE(meningitis) S 0.5 F CEFTRIAXONE S 0.5 F CLSI guidelines interpret Ceftriaxone MICs based upon meningitis vs. nonmeningitis criteria. ERYTHROMYCIN R >=8 F LEVOFLOXACIN S 0.5 F VANCOMYCIN S <=0.12 F PENICILLIN(IV,meningitis) R 1 F PENICILLIN (oral) I 1 F High doses of Penicillin may effectively treat intermediately susceptible cases of Streptococcus pneumoniae except when complicated (e.g. as in meningitis, empyema, or endocarditis). PENICILLIN(IV,nonmening.) S 1 F Susceptible [facility] Comment on above: Performed By: #### 6 24-7 #### [facility] ([id number]) [address] [place] [address] [address] [place] [address] Surgical Pathologyon 024 Surgical Pathology Normal [facility] Comment on above: Result Comment: [facility] [address] [place] [address] Surgical Pathology Consultation Patient Name:JAZZMINE PATEL:1950 (Age: 73)Gender:FTaken:4Reported:02/02/2024hysician(s):EILEEN FONSECA DO ([phone])Copy To: Rec. #:[id number]: #[id number] Final Pathologic Diagnosis Endobronchial lesion, lingula: AT [...] Out cjb/02/02/2024niesha Molina MD Interpretation performed at [facility], [address] [place] [address], License number: [id number]. Clinical History Lingular obstruction and chronic cough. Gross Description Received in formalin labeled HOMLER, endobronchial lesion, lingula are multiple thurston bits of soft tissue, aggregating to 0.9 x 0.1 x 0.1 cm. Filtered and submitted in a single cassette. (1, ns, [id number], m5) [facility]/01/26/2024SSI Specimen(s) Received Endobronchial lesion, lingula Fee Codes(s): 1; 57512, 63542, 45547(3) BASIC METABOLIC PANLon 01-24 Anion gap [Moles/Vol] 12 mmol/L Normal 5-15 [facility] Comment on above: Performed By: #### C BCA BMP, 09111-3, THYR #### [facility] ([id number]) [address], [address] [place] [address] Calcium [Mass/Vol] 7.4 mg/dL Low 8.5-10.5 [facility] Comment on above: Performed By: #### C BCA BMP, 57135-6, THYR #### [facility] ([id number]) [address], [address] [place] [address] Chloride [Moles/Vol] 101 mmol/L Normal 98-109 [facility] Comment on above: Performed By: #### C BCA, BMP, 47682-2, THYR #### [facility] ([id number]) [address], [address] [place] [address] CO2 [Moles/Vol] 29 mmol/L Normal 22-32 [facility] Comment on above: Performed By: #### C DMITRY PATEL, 16666-2, THYR #### [facility] ([id number]) [address], [address] [place] [address] Creatinine [Mass/Vol] 0.82 mg/dL Normal 0.40-1.00 [facility] Comment on above: Result Comment: METH OD TRACEABLE TO IDMS STANDARD Performed By: #### C DMITRY PATEL, 71245-1, THYR #### [facility] ([id number]) [address], [address] [place] [address] GFR/1.73 sq M.predicted among non-blacks MDRD (S/P/Bld) [Vol rate/Area] 76 mL/min/{1.73_m2} Normal >59 [facility] Comment on above: Result Comment: Reported eGFR is based on the CKD-EPI 2020 equation that does not use a race coefficient. Performed By: #### C DMITRY PATEL, 23157-5, THYR #### [facility] ([id number]) [address], [address] [place] [address] Glucose [Mass/Vol] 112 mg/dL High 65-99 [facility] Comment on above: Performed By: #### C DMITRY PATEL, 98870-6, THYR #### [facility] ([id number]) [address], [address] [place] [address] Potassium [Moles/Vol] 3.6 mmol/L Normal 3.5-5.0 [facility] Comment on above: Performed By: #### C DMITRY PATEL, 77407-6, THYR #### [facility] ([id number]) [address], [address] [place] [address] Sodium [Moles/Vol] 142 mmol/L Normal 134-146 [facility] Comment on above: Performed By: #### C DMITRY PATEL, 96597-2, THYR #### [facility] ([id number]) [address], [address] [place] [address] Urea nitrogen [Mass/Vol] 16 mg/dL Normal 5-27 [facility] Comment on above: Performed By: #### C DMITRY PATEL, 18193-9, THYR #### [facility] ([id number]) [address], [address] [place] [address] CBC AND AUTO DIFFon 01-25-20 24 ABSOLUTE BASOPHIL 0.1 X10E9/L Normal 0.0-0.2 [facility] Comment on above: Performed By: #### DMITRY Blackmon BCA, 74984-4, THYR #### [facility] ([id number]) [address], [address] [place] [address] ABSOLUTE NEUTROPHIL 4.3 X10E9/L Normal 1.5-6.6 [facility] Comment on above: Performed By: #### DMITRY Blackmon BCA, 65739-3, THYR #### [facility] ([id number]) [address], [address] [place] [address] Basophils/100 WBC (Bld) 1.4 % Normal [facility] Comment on above: Performed By: #### DMITRY Blackmon BCA, 94118-5, THYR #### [facility] ([id number]) [address], [address] [place] [address] Eosinophils (Bld) [#/Vol] 0.1 10*3/uL Normal 0.0-0.4 [facility] Comment on above: Performed By: #### C DMITRY PATEL, 73281-6, THYR #### [facility] ([id number]) [address], [address] [place] [address] Eosinophils/100 WBC (Bld) 0.8 % Normal [facility] Comment on above: Performed By: #### C JORGE BMP, 09709-1, THYR #### [facility] ([id number]) [address], [address] [place] [address] Erythrocyte distribution width (RBC) [Ratio] 14.0 % Normal 11.5-15.0 [facility] Comment on above: Performed By: #### C JORGE, BMP, 55733-0, THYR #### [facility] ([id number]) [address], [address] [place] [address] Hematocrit (Bld) [Volume fraction] 41.3 % Normal 35-47 [facility] Comment on above: Performed By: #### C JORGE BMP, 94706-0, THYR #### [facility] ([id number]) [address], [address] [place] [address] Hemoglobin (Bld) [Mass/Vol] 14.2 g/dL Normal 11.7-15.5 [facility] Comment on above: Performed By: #### C JORGE, BMP, 56717-3, THYR #### [facility] ([id number]) [address], [address] [place] [address] Lymphocytes (Bld) [#/Vol] 2.0 10*3/uL Normal 1.0-3.5 [facility] Comment on above: Performed By: #### C BCA, BMP, 93412-8, THYR #### [facility] ([id number]) [address], [address] [place] [address] Lymphocytes/100 WBC (Bld) 29.5 % Normal [facility] Comment on above: Performed By: #### C BCA, BMP, 08970-6, THYR #### [facility] ([id number]) [address], [address] [place] [address] MCH (RBC) [Entitic mass] 30.8 pg Normal 27-34 [facility] Comment on above: Performed By: #### C DMITRY PATEL, 49735-3, THYR #### [facility] ([id number]) [address], [address] [place] [address] MCHC (RBC) [Mass/Vol] 34.5 g/dL Normal 32-36 [facility] Comment on above: Performed By: #### C DMITRY PATEL, 59133-2, THYR #### [facility] ([id number]) [address], [facility] [address] [place] [address] MCV (RBC) [Entitic vol] 89 fL Normal 80-100 [facility] Comment on above: Performed By: #### C DMITRY PATEL, 56527-4, THYR #### [facility] ([id number]) [address], [address] [place] [address] Monocytes (Bld) [#/Vol] 0.4 10*3/uL Normal 0-0.9 [facility] Comment on above: Performed By: #### C DMITRY PATEL, 42991-5, THYR #### [facility] ([id number]) [address], [address] [place] [address] Monocytes/100 WBC (Bld) 5.6 % Normal [facility] Comment on above: Performed By: #### C DMITRY PATEL, 07341-8, THYR #### [facility] ([id number]) [address], [address] [place] [address] Neutrophils/100 WBC (Bld) 62.7 % Normal [facility] Comment on above: Performed By: #### C DMITRY PATEL, 12739-9, THYR #### [facility] ([id number]) [address], [address] [place] [address] Platelet mean volume (Bld) [Entitic vol] 8.8 fL Normal 7-12 [facility] [facility] Comment on above: Performed By: #### DMITRY Blackmon BCA, 51982-8, THYR #### [facility] ([id number]) [address], [facility] [address] [place] [address] Platelets (Bld) [#/Vol] 230 10*3/uL Normal 150-450 [facility] Comment on above: Performed By: #### DMITRY Blackmon BCA, 35548-6, THYR #### [facility] ([id number]) [address], [facility] [address] [place] [address] RBC COUNT 4.62 X10E12/L Normal 3.80-5.20 [facility] Comment on above: Performed By: #### DMITRY Blackmon BCA, 67434-4, THYR #### [facility] ([id number]) [address], [facility] [address] [place] [address] WBC (Bld) [#/Vol] 6.9 10*3/uL Normal 4.0-11.0 [facility] Comment on above: Performed By: #### DMITRY Blackmon BCA, 96140-5, THYR #### [facility] ([id number]) [address], [address] [place] [address] HGB A1C (GLYCO-HGB)on 2023 Glucose [Mass/Vol] 146 mg/dL Normal [facility] Comment on above: Performed By: #### DMITRY Blackmon BCA, 47547-5, THYR #### [facility] ([id number]) [address], [facility] [address] [place] [address] HbA1c (Bld) [Mass fraction] 6.7 % High 4.4-5.6 [facility] Comment on above: Result Comment: NOTE ADA Guidelines Result HgbA1c Normal : less than 5.7 % Prediabetes : 5.7 % to 6.4 % Diabetes : > 6.4 % Use with caution in patients with abnormal hemoglobin variants as the half-life of red blood cells and in vivo glycation rates are affected. Performed By: #### C DMITRY PATEL, 31778-6, THYR #### [facility] ([id number]) [address], [address] [place] [address] Lipid 1996 panelon 4 Cholesterol [Mass/Vol] 97 mg/dL Low 150-200 [facility] Comment on above: Performed By: #### DMITRY Blackmon BCA, 81201-4, THYR #### [facility] ([id number]) [address], [address] [place] [address] Cholesterol in HDL [Mass/Vol] 44 mg/dL Normal >39 [facility] Comment on above: Result Comment: HDL <40 mg/dL - High Risk HDL > or = 40mg/dL- Desirable HDL >60 mg/dL - Negative Risk Performed By: #### DMITRY Blackmon BCA, 46259-7, THYR #### [facility] ([id number]) [address], [address] [place] [address] Cholesterol in LDL [Mass/Vol] 41 mg/dL Normal <130 [facility] Comment on above: Result Comment: LDL <100 mg/dL - Desirable LDL >160 mg/dL - High Risk Performed By: #### DMITRY Blackmon BCA, , THYR #### [facility] ([id number]) [address], [address] [place] [address] Cholesterol in VLDL [Mass/Vol] 12 mg/dL Normal 0-30 [facility] Comment on above: Performed By: #### C DMITRY PATEL, 94191-5, THYR #### [facility] ([id number]) [address], [address] [place] [address] CHOLESTEROL:HDL 2.2 Normal 1.0-5.0 [facility] Comment on above: Performed By: #### C DMITRY PATEL, 65687-3, THYR #### [facility] ([id number]) [address], [address] [place] [address] Triglyceride [Mass/Vol] 62 mg/dL Normal 27-150 [facility] Comment on above: Performed By: #### C DMITRY PATEL, 52288-6, THYR #### [facility] ([id number]) [address], [address] [place] [address] PROTIME AND INRon 01-25-2024 INR Coag (PPP) [Relative time] 1.1 {INR} Normal 0.8-1.1 [facility] Comment on above: Performed By: #### P INR, 13957-9 #### [facility] ([id number]) [address] [place] [address] PT Coag (PPP) [Time] 13.1 s Normal 9.8-13.2 [facility] Comment on above: Result Comment: NEW REFERENCE RANGE Performed By: #### P INR, 97402-3 #### [facility] ([id number]) [address] [place] [address] [place] [address] THYROID PROFILEon 01-25-2024 Free T4 [Mass/Vol] 1.41 ng/dL Normal 0.61-1.60 [facility] Comment on above: Performed By: #### C BCA, BMP, 84627-1, THYR #### [facility] ([id number]) [address], [address] [place] [address] TSH 0.22 uIU/mL Low 0.49-4.67 [facility] Comment on above: Performed By: #### C BCA, BMP, 24774-2, THYR #### [facility] ([id number]) [address] [facility], [address] [place] [address] aPTT Coag (PPP) [Time]on aPTT Coag (Bld) [Time] 36 s Normal 26-37 [facility] Comment on above: Result Comment: NEW REFERENCE RANGE Performed By: #### P INR, 26087-1 #### [facility] ([id number]) [address] [place] [address], [place] [address] CREATININEon 08-15-2022 Creatinine [Mass/Vol] 1.10 mg/dL Critically high 0.55-1.02 [facility] Comment on above: Performed By: #### C TRUPTI #### [facility] [address] [address] [address] Becky Gauthier EGFR-AF CONGOLESE =60 Normal >=60 [facility] Comment on above: Performed By: #### C TRUPTI #### [facility] [address] [address] [address] Becky Gauthier EGFR-NON AF CONGOLESE 49 mL/min/1.73m2 Critically low >=60 [facility] Comment on above: Performed By: #### C TRUPTI #### [facility] [address] [address] [address] Becky Gauthier Basic Metabolic PanelOrdered By: Willie Parra on 02-13-2021 Anion gap [Moles/Vol] 13 mmol/L 9 - 17 mmol/L [facility] [employer] [facility] Phone: Calcium [Mass/Vol] 7.7 mg/dL Low 8.6 - 10. 4 mg/dL [facility] [facility] Phone: Chloride [Moles/Vol] 105 mmol/L 98 - 10 7 mmol/L [facility] [facility] Phone: CO2 [Moles/Vol] 24 mmol/L 20 - 31 mmol/L [facility] Phone: Creatinine [Mass/Vol] 1.38 mg/dL High 0.50 - 0.90 mg/dL [facility] [employer] [facility] Phone: GFR 46 mL/min Low >60 [employer] Phone: GFR Non- 38 mL/min Low >60 [facility] Phone: GFR/1.73 sq M.predicted MDRD (S/P/Bld) [Vol rate/Area] [facility] [facility] Phone: Comment on above: Average GFR for 60-6 9 years old: 85 mL/min/1.73sq m Chronic Kidney Disease: <60 mL/min/1.73sq m Kidney failure: <15 mL/min/1.73sq m eGFR calculated using average adult body mass. Additional eGFR calculator available at: http://www.Linq[employer]/multiple_crcl_2012.htm GFR/1.73 sq M.predicted MDRD (S/P/Bld) [Vol rate/Area] NOT REPORTED [facility] [employer] [facility] Phone: Glucose [Mass/Vol] 94 mg/dL 70 - 99 mg/dL [facility] [employer] [facility] Phone: Interpretation and review of laboratory results Abnormal [facility] [employer] [facility] Phone: Potassium [Moles/Vol] 3.6 mmol/L Low 3.7 - 5.3 mmol/L [facility] Phone: Sodium [Moles/Vol] 142 mmol/L 135 - 144 mmol/L [facility] [employer] [facility] Phone: Urea nitrogen (BldV) [Mass/Vol] 16 mg/dL 8 - 23 mg/dL [facility] [employer] Phone: Urea nitrogen/Creatinine (Bld) [Mass ratio] 12 [facility] [employer] Phone: Basic Metabolic Profon 02-13 (cont.) Normal [facility] Comment on above: Result Comment: Aver age GFR for 60-69 years old: 85 mL/min/1.73sq m Chronic Kidney Disease: <60 mL/min/1.73sq m Kidney failure: <15 mL/min/1.73sq m eGFR calculated using average adult body mass. Additional eGFR calculator available at: http://www.Linqia/multiple_crcl_2011.htm Performed By: #### B MP #### [facility] [address] [place] [address] Appeals Representative: Oscar Mane MD Anion gap [Moles/Vol] 13 mmol/L Normal -17 [facility] Comment on above: Performed By: #### B MP #### [facility] [address] [place] [address] Appeals Representative: Oscar Mane MD BUN/CRE Ratio 12 Normal - [facility] Comment on above: Performed By: #### B MP #### [facility] [address] [place] [address] Appeals Representative: Oscar Mane MD Calcium [Mass/Vol] 7.7 mg/dL Low 8.6-10.4 [facility] Comment on above: Performed By: #### B MP #### [facility] [address] [place] [address] Appeals Representative: Oscar Mane MD Chloride [Moles/Vol] 105 mmol/L Normal 98-[address] [facility] Comment on above: Performed By: #### B MP #### [facility] [address] [place] [address] Appeals Representative: Oscar Mane MD CO2 [Moles/Vol] 24 mmol/L Normal 20-31 [facility] Comment on above: Performed By: #### B MP #### [facility] [address] [place] [address] Appeals Representative: Oscar Mane MD Creatinine [Mass/Vol] 1.38 mg/dL High 0.50-0.90 [facility] Comment on above: Performed By: #### B MP #### [facility] [address] [place] [address] Appeals Representative: Oscar Mane MD GFR, Amer 46 mL/min Low >60 [facility] Comment on above: Performed By: #### B MP #### [facility] [address] [place] [address] Appeals Representative: Oscar Mane MD GFR,non Amer 38 mL/min Low >[address] [facility] Comment on above: Performed By: #### B MP #### [facility] [address] [place] [address] Appeals Representative: Oscar Mane MD Glucose [Mass/Vol] 94 mg/dL Normal 70-99 [facility] Comment on above: Performed By: #### B MP #### [facility] [address] [place] [address] Appeals Representative: Oscar Mane MD Potassium [Moles/Vol] 3.6 mmol/L Low 3.7-5.3 [facility] Comment on above: Performed By: #### B MP #### [facility] [address] [place] [address] Appeals Representative: Oscar Mane MD Sodium [Moles/Vol] 142 mmol/L Normal 135-144 [facility] Comment on above: Performed By: #### B MP #### [facility] [address] [place], [place] [address] Appeals Representative: Oscar Mane MD Urea nitrogen [Mass/Vol] 16 mg/dL Normal 8- [facility] Comment on above: Performed By: #### B MP #### [facility] [address] [facility] [address] [place] [address] Appeals Representative: Oscar Mane MD Staging: NOT REPORTED Normal [facility] Comment on above: Performed By: #### B MP #### [facility] [address] [facility] [place] [address] Appeals Representative: Oscar Mane MD EKG 12 leadOrdered By: Willie Parra on 02-13-2021 Atrial Rate 69 BPM [facility] [employer] Phone: P [place] 86 degrees [facility] [employer] Phone: P-R Interval 134 ms [facility] [employer] Phone: [phone] Q-T Interval 444 ms [facility] [employer] [facility] Phone: QRS Duration 84 ms [facility] [employer] [facility] Phone: QTc Calculation (Bazett) 475 ms [facility] [employer] [facility] Phone: [phone] R [place] 78 degrees [facility] [employer] [facility] Phone: T [place] 135 degrees [facility] [employer] [facility] Phone: [phone] Ventricular Rate 69 BPM [facility] [employer] [facility] Phone: Sinus rhythm with ma rked sinus arrhythmia ST & T wave abnormality, consider anterolateral ischemia Prolonged QT Abnormal ECG No previous ECGs available [facility] [employer] [facility] Phone: [place] Incoming E kg Results From [employer] - 02/13/2021 8:17 AM EDT Sinus rhythm with marked sinus arrhythmia ST & T wave abnormality, consider anterolateral ischemia Prolonged QT Abnormal ECG No previous ECGs available [facility] [employer] [facility] Phone: BUN + Creatinineon 1 (cont.) Normal [facility] Comment on above: Result Comment: Aver age GFR for 60-69 years old: 85 mL/min/1.73sq m Chronic Kidney Disease: <60 mL/min/1.73sq m Kidney failure: <15 mL/min/1.73sq m eGFR calculated using average adult body mass. Additional eGFR calculator available at: http://www.[employer]/multiple_crcl_2011.htm Performed By: #### B UNCRT #### [facility] [address] [facility] [place] [address] Appeals Representative: Oscar Mane MD Creatinine [Mass/Vol] 0.92 mg/dL High 0.50-0.90 [facility] Comment on above: Performed By: #### B UNCRT #### [facility] [address] [facility] [place] [address] Appeals Representative: Oscar Mane MD GFR, Amer >60 Normal >60 [facility] Comment on above: Performed By: #### B UNCRT #### [facility] [address] [place] [address] Appeals Representative: Oscar Mane MD GFR,non Amer >60 Normal >[address] [facility] Comment on above: Performed By: #### B UNCRT #### [facility] [address] [place] [address] Appeals Representative: Oscar Mane MD Urea nitrogen [Mass/Vol] 14 mg/dL Normal 8-23 [facility] Comment on above: Performed By: #### B UNCRT #### [facility] [address] [place] [address] Appeals Representative: Oscar Mane MD Staging: NOT REPORTED Normal [facility] Comment on above: Performed By: #### B UNCRT #### [facility] [address] [place] [address] Appeals Representative: Oscar Mane MD BUN + CreatinineOrdered By: Willie Parra on 02-12-2021 Creatinine [Mass/Vol] 0.92 mg/dL High 0.50 - 0.90 mg/dL [facility] [employer] [facility] Phone: GFR >60 >60 mL/min [employer] Phone: GFR Non- >60 >60 mL/min [facility] Phone: GFR/1.73 sq M.predicted MDRD (S/P/Bld) [Vol rate/Area] [facility] [employer] [facility] Phone: Comment on above: Average GFR for 60-6 9 years old: 85 mL/min/1.73sq m Chronic Kidney Disease: <60 mL/min/1.73sq m Kidney failure: <15 mL/min/1.73sq m eGFR calculated using average adult body mass. Additional eGFR calculator available at: http://www.[employer]qia/multiple_crcl_2012.htm GFR/1.73 sq M.predicted MDRD (S/P/Bld) [Vol rate/Area] NOT REPORTED [facility] Phone: Interpretation and review of laboratory results Abnormal [facility] [facility] Phone: Urea nitrogen (BldV) [Mass/Vol] 14 mg/dL 8 - 23 mg/dL [facility] [employer] [facility] Phone: Catheterization and angiogra phy procedure details panelOrdered By: Willie Parra on 02-12-2021 Cardiac Diagnostic + PCI Report Demographics Patient AMANDA Flores Date of Study 02/12/2021 Name Date of 1950 Gender Female Age 70 year(s) Race Room [id number]^FIDEL^WILLIE Height: 67 inch, 170.18 cm Number [employer] [id number] Weight: 132 pounds, 59.9 kg ID # Patient [id number] BSA: 1.69 m^2 BMI: 20.67 Acct # kg/m^2 MR # [id number] Performing Physician Willie Parra Referring Physician # [...] Medical therapy 3. risk factor modification Signature Angiographic Findings Cardiac Arteries and Lesion Findings [...] max pressure of: 12 tomasa. Valves +------+ ------+ + + !Valve !Stenosis !Insufficiency !Comments ! +------+ ------+ + + !Mitral! !No insufficiency ! ! +------+ ------+ + + !Aortic!No stenosis ! ! ! +------+ ------+ + + Coronary Tree Dominance: Right LV Analysis [...] - Nitroglycerin I (more content not included)... [place] Work Phone: [place] Incoming C brenda Results From [employer] - 02/12/2021 2:56 PM EDT Cardiac Diagnostic + PCI Report Demographics Patient AMANDA Flores Date of Study 02/12/2021 Name Date of 1950 Gender Female Age 70 year(s) Race Room [id number]^FIDEL^WILLIE Height: 67 inch, 170.18 cm Number Corporate [id number] Weight: 132 pounds, 59.9 kg ID # Patient [id number] BSA: 1.69 m^2 BMI: 20.67 Acct # kg/m^2 MR # [id number] Performing Physician Willie Parra Referring Physician # [...] Medical therapy 3. risk factor modification Signature Angiographic Findings Cardiac Arteries and Lesion Findings [...] max pressure of: 12 tomasa. Valves +------+ ------+ + + !Valve !Stenosis !Insufficiency !Comments ! +------+ ------+ + + !Mitral! !No insufficiency ! ! +------+ ------+ + + !Aortic!No stenosis ! ! ! +------+ ------+ + + Coronary Tree Dominance: Right LV Analysis [...] units. - Heparin (more content not included)... [facility] [employer] Phone: POC Glucose FingerstickOrder ed By: Willie Parra on 02-12-2021 Glucose [Mass/Vol] 89 mg/dL 65 - 105 mg/dL [facility] [facility] Phone: Glucose [Mass/Vol] 79 mg/dL 65 - 105 mg/dL [facility] Phone: Glucose [Mass/Vol] 100 mg/dL 65 - 105 mg/dL [facility] [employer] [facility] Phone: Vital Signs Date Time Vital Sign Value Performing Clinician Facility 12-29-2024 13:33-0500 Body height 170.2 cm [facility] Phone: [facility] [facility] 12-29-2024 13:33-0500 Body mass index (BMI) [Ratio] 18.97 kg/m2 [facility] Phone: [facility] [facility] 12-29-2024 13:33-0500 Body weight 54.93 kg [facility] Phone: [facility] 12-29-2024 13:33-0500 Diastolic blood pressure 87 mm[Hg] Eileen Fonseca DO Work Phone: [facility] 12-29-2024 13:33-0500 Heart rate 136 /min Eileen Fonseca DO Work Phone: [facility] 12-29-2024 13:33-0500 SaO2% (BldA) [Mass fraction] 94 % Eileen Fonseca DO Work Phone: [facility] 12-29-2024 13:33-0500 Systolic blood pressure 159 mm[Hg] Eileen Fonseca DO Work Phone: [facility] 11-03-2024 13:29-0500 Body height 170.2 cm Eileen Fonseca DO Work Phone: [facility] 11-03-2024 13:29-0500 Body mass index (BMI) [Ratio] 19.7 kg/m2 Eileen Fonseca DO Work Phone: [facility] 11-03-2024 13:29-0500 Body weight 57.06 kg Eileen Fonseca DO Work Phone: [facility] 11-03-2024 13:29-0500 Diastolic blood pressure 58 mm[Hg] Eileen Fonseca DO Work Phone: [facility] 11-03-2024 13:29-0500 Heart rate 92 /min Eileen Fonseca DO Work Phone: [facility] 11-03-2024 13:29-0500 SaO2% (BldA) [Mass fraction] 97 % Eileen Fonseca DO Work Phone: [facility] 11-03-2024 13:29-0500 Systolic blood pressure 117 mm[Hg] Eileen Fonseca DO Work Phone: [facility] 07-28-2024 13:29-0400 Body height 170.2 cm Eileen Fonseca DO Work Phone: [facility] 07-28-2024 13:29-0400 Body mass index (BMI) [Ratio] 18.78 kg/m2 Eileen Fonseca DO Work Phone: [facility] 07-28-2024 13:29-0400 Body weight 54.39 kg Eileen Fonseca DO Work Phone: [facility] 07-28-2024 13:29-0400 Diastolic blood pressure 66 mm[Hg] Eileen Fonseca DO Work Phone: [facility] 07-28-2024 13:29-0400 Heart rate 91 /min Eileen Fonseca DO Work Phone: [facility] 07-28-2024 13:29-0400 SaO2% (BldA) [Mass fraction] 100 % Eileen Fonseca DO Work Phone: [facility] 07-28-2024 13:29-0400 Systolic blood pressure 106 mm[Hg] Eileen Fonseca DO Work Phone: [facility] 06-16-2024 08:58-0400 Diastolic blood pressure 78 mm[Hg] Cruz Roche MD Work Phone: [facility] 06-16-2024 08:58-0400 Systolic blood pressure 118 mm[Hg] Cruz Roche MD Work Phone: [facility] 06-16-2024 08:57-0400 Body height 170.2 cm Cruz Roche MD Work Phone: [facility] 06-16-2024 08:57-0400 Body mass index (BMI) [Ratio] 18.64 kg/m2 Cruz Roche MD Work Phone: [facility] 06-16-2024 08:57-0400 Body weight 53.98 kg Cruz Roche MD Work Phone: [facility] 06-16-2024 08:57-0400 Heart rate 43 /min Cruz Roche MD Work Phone: [facility] 06-16-2024 08:57-0400 SaO2% (BldA) [Mass fraction] 100 % Cruz Roche MD Work Phone: [facility] 05-26-2024 09:01-0400 Diastolic blood pressure 60 mm[Hg] Cruz Roche MD Work Phone: [facility] 05-26-2024 09:01-0400 Systolic blood pressure 100 mm[Hg] Cruz Roche MD Work Phone: [facility] 05-26-2024 08:59-0400 Body height 170.2 cm Cruz Roche MD Work Phone: [facility] 05-26-2024 08:59-0400 Body mass index (BMI) [Ratio] 18.67 kg/m2 Cruz Roche MD Work Phone: [facility] 05-26-2024 08:59-0400 Body weight 54.07 kg Cruz Roche MD Work Phone: [facility] 05-26-2024 08:59-0400 Heart rate 85 /min Cruz Roche MD Work Phone: [facility] 05-26-2024 08:59-0400 SaO2% (BldA) [Mass fraction] 99 % Cruz Roche MD Work Phone: [facility] 05-17-2024 09:27-0400 Body height 170.18 cm DO Miguel Curtis Work Phone: [facility] 05-17-2024 09:27-0400 Body mass index (BMI) [Ratio] 19.1 kg/m2 DO Miguel House Work Phone: [facility] 05-17-2024 09:27-0400 Body temperature 97.1 [degF] DO Miguel House Work Phone: [facility] 05-17-2024 09:27-0400 Body weight 55.33 kg DO Miguel House Work Phone: [facility] 05-17-2024 09:27-0400 Diastolic blood pressure 73 mm[Hg] DO Miguel House Work Phone: [facility] 05-17-2024 09:27-0400 Heart rate 87 /min DO Miguel House Work Phone: [facility] 05-17-2024 09:27-0400 Respiratory rate 16 /min DO Miguel House Work Phone: [facility] 05-17-2024 09:27-0400 SaO2% (BldA) [Mass fraction] 99 % DO Miguel House Work Phone: [facility] 05-17-2024 09:27-0400 Systolic blood pressure 120 mm[Hg] DO Miguel House Work Phone: [facility] 05-05-2024 12:39-0400 Body height 170.2 cm Eileen Fonseca DO Work Phone: [facility] 05-05-2024 12:39-0400 Body mass index (BMI) [Ratio] 18.84 kg/m2 Eileen Fonseca DO Work Phone: [facility] 05-05-2024 12:39-0400 Body weight 54.57 kg Eileen Fonseca DO Work Phone: [facility] 05-05-2024 12:39-0400 Diastolic blood pressure 74 mm[Hg] Eileen Fonseca DO Work Phone: [facility] [employer] [facility] 05-05-2024 12:39-0400 Heart rate 113 /min Eileen Fonseca DO Work Phone: [facility] [employer] [facility] 05-05-2024 12:39-0400 SaO2% (BldA) [Mass fraction] 97 % Eileen Fonseca DO Work Phone: [facility] [employer] [facility] 05-05-2024 12:39-0400 Systolic blood pressure 128 mm[Hg] Eileen Fonseca DO Work Phone: [facility] 03-15-2024 10:00-0400 Body temperature 97.6 [degF] DO Miguel House Work Phone: [facility] 03-15-2024 10:00-0400 Body weight 52.61 kg DO Miguel House Work Phone: [facility] 03-15-2024 10:00-0400 Diastolic blood pressure 85 mm[Hg] DO Miguel House Work Phone: [facility] 03-15-2024 10:00-0400 Heart rate 96 /min DO Miguel House Work Phone: [facility] 03-15-2024 10:00-0400 Respiratory rate 20 /min DO Miguel House Work Phone: [facility] 03-15-2024 10:00-0400 SaO2% (BldA) [Mass fraction] 64 % DO Miguel House Work Phone: [facility] 03-15-2024 10:00-0400 Systolic blood pressure 136 mm[Hg] DO Miguel House Work Phone: [facility] 03-03-2024 13:54-0400 Body height 170.2 cm Eileen Fonseca DO Work Phone: [facility] 03-03-2024 13:54-0400 Body mass index (BMI) [Ratio] 18.4 kg/m2 Eileen Fonseca DO Work Phone: [facility] 03-03-2024 13:54-0400 Body weight 53.3 kg Eileen Fonseca DO Work Phone: [facility] 03-03-2024 13:54-0400 Diastolic blood pressure 51 mm[Hg] Eileen Fonseca DO Work Phone: [facility] 03-03-2024 13:54-0400 Heart rate 62 /min Eileen Fonseca DO Work Phone: [facility] 03-03-2024 13:54-0400 SaO2% (BldA) [Mass fraction] 95 % Eileen Fonseca DO Work Phone: [facility] 03-03-2024 13:54-0400 Systolic blood pressure 116 mm[Hg] Eileen Fonseca DO Work Phone: [facility] [employer] [facility] 02-24-2024 15:030400 Body height 170.18 cm DO Miguel House Work Phone: [facility] 02-24-2024 14:33-0400 Body height 170.18 cm DO Miguel House Work Phone: [facility] 02-24-2024 14:33-0400 Body mass index (BMI) [Ratio] 18.4 kg/m2 DO Miguel House Work Phone: [facility] 02-24-2024 14:33-0400 Body weight 53.52 kg DO Miguel House Work Phone: [facility] 02-24-2024 14:33-0400 Diastolic blood pressure 75 mm[Hg] DO Miguel House Work Phone: [facility] 02-24-2024 14:33-0400 Heart rate 73 /min DO Miguel House Work Phone: [facility] 02-24-2024 14:33-0400 Respiratory rate 18 /min DO Miguel House Work Phone: [facility] 02-24-2024 14:33-0400 SaO2% (BldA) [Mass fraction] 97 % DO Miguel House Work Phone: [facility] 02-24-2024 14:33-0400 Systolic blood pressure 123 mm[Hg] DO Miguel House Work Phone: [facility] 01-07-2024 11:27-0400 Body height 170.2 cm Eileen Fonseca DO Work Phone: [facility] 01-07-2024 11:27-0400 Body mass index (BMI) [Ratio] 18.14 kg/m2 Eileen Fonseca DO Work Phone: [facility] [employer] [facility] 01-07-2024 11:27-0400 Body weight 52.53 kg Eileen Fonseca DO Work Phone: [employer] 01-07-2024 11:27-0400 Diastolic blood pressure 65 mm[Hg] E[facility] 01-07-2024 11:27-0400 Heart rate 71 /min Eileen Fonseca DO [facility] 01-07-2024 11:27-0400 SaO2% (BldA) [Mass fraction] 93 % Eileen Fonseca DO [facility] 01-07-2024 11:27-0400 Systolic blood pressure 109 mm[Hg] Eileen Fonsec[facility] DO [facility] 02-13-2021 11:04-0400 Body temperature 98.29 [degF] Willie Parra MD Work Phone: [facility] Work Phone: 02-13-2021 11:04-0400 Diastolic blood pressure 61 mm[Hg] Willie Parra MD Work Phone: [facility] Work Phone: 02-13-2021 11:04-0400 Heart rate 81 /min Willie Parra MD Work Phone: [facility] Work Phone: 02-13-2021 11:04-0400 Respiratory rate 20 /min Willie Parra MD Work Phone: [place] Work Phone: 02-13-2021 11:04-0400 SaO2% (BldA) [Mass fraction] 93 % Willie Parra MD Work Phone: [facility] Work Phone: 02-13-2021 11:04-0400 Systolic blood pressure 119 mm[Hg] Willie Parra MD Work Phone: [place] Work Phone: 02-12-2021 11:29-0400 Body height 170.2 cm Willie Parra MD Work Phone: [place] Work Phone: 02-12-2021 11:29-0400 Body mass index (BMI) [Ratio] 20.75 kg/m2 Willie Parra MD Work Phone: [facility] Work Phone: 02-12-2021 11:29-040 Body weight 60.1 kg Willie Parra MD Work Phone: [place] Work Phone: Encounters Encounter Date Encounter Type Care Provider Facility Start: 01-10-2025 Registered Recurring Miguel messina DO [facility] Work Phone: Start: 01-10-2025 End: 01-10-2025 ambulatory Miguel Brock DO Work Phone: [facility] Work Phone: Start: 01-10-2025 End: 01-10-2025 Patient encounter procedure [facility] Work Phone: Start: 01-03-2025 End: 01-03-2025 Orders Only Eileen Fonseca DO Work Phone: [facility] Start: 01-02-2025 End: 01-03-2025 Telephone encounter Cecilia MORTON [facility] Start: 12-29-2024 End: 12-29-2024 Telephone encounter Tiana Interiano CMA [facility] Start: 12-29-2024 End: 12-29-2024 Office outpatient visit 25 minutes Eileen Fonseca DO Work Phone: [facility] Comment on above: Moderate COPD (chron ic obstructive pulmonary disease) ([facility]) (Primary Dx); 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 Start: 12-29-2024 End: 12-29-2024 ambulatory [facility] Start: 12-28-2024 End: 12-28-2024 Telephone encounter [facility] Start: 12-16-2024 End: 12-16-2024 ambulatory [facility] Start: 12-02-2024 End: 12-02-2024 Refill Navin Spears TRAFFIC WORKFORCE REPRESENTATIVE-SPANISH LECTURER Work Phone: [facility] Comment on above: Bronchiectasis witho ut complication ([facility]) Start: 11-25-2024 Registered Recurring Miguel messina DO Work Phone: [facility] Start: 11-21-2024 End: 11-30-2024 Telephone encounter Cecilia [facility] Start: 11-15-2024 End: 11-15-2024 Evaluation and management of inpatient [facility] Start: 11-14-2024 End: 11-14-2024 ambulatory [facility] Start: 11-14-2024 End: 11-14-2024 Evaluation and management of inpatient [facility] Start: 11-10-2024 End: 11-10-2024 Telephone encounter [facility] Start: 11-09-2024 End: 11-09-2024 Admission to [facility] Phone Call Provider [facility] Start: 11-08-2024 End: 11-08-2024 Orders Only Scanning Provider External [facility] Start: 2024 End: 2024 Telephone encounter Cecilia [facility]ule[facility] Start: 11-04-2024 End: 11-04-2024 Orders Only Eileen Dover [place] DO Work Phone: [facility] Start: 11-03-2024 End: 11-03-2024 ambulatory [facility] Start: 11-03-2024 End: 11-03-2024 Telephone encounter Cecilia Zuleta [facility] Comment on above: Bronchiectasis witho ut complication ([facility]) Start: 11-03-2024 End: 11-03-2024 Office outpatient visit 25 minutes Eileen Dover [facility] DO Work Phone: [facility] Comment on above: Moderate COPD (chron ic obstructive pulmonary disease) ([facility]) (Primary Dx); Bronchiectasis without complication ([facility]); Primary lung adenocarcinoma, left ([facility]); Shortness of breath; 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; Pulmonary infiltrate present on computed tomography Start: 11-03-2024 End: 11-03-2024 ambulatory [facility] Start: 11-02-2024 ambulatory DO MIGUEL BROCK Faci lity:[facility] Start: 10-24-2024 End: 10-24-2024 Refill Navin Spears TRAFFIC WORKFORCE REPRESENTATIVE-SPANISH LECTURER Work Phone: [facility] Start: 10-21-2024 End: 10-25-2024 Emergency department patient visit MIO COFFEY [facility] Start: 10-21-2024 End: 10-24-2024 Evaluation and management of inpatient MIGUEL Vargas [facility] Start: 09-27-2024 End: 09-27-2024 Telephone encounter Edith zuniga Comment on above: CRITICAL LAB Pneumonia of left lo wer lobe due to infectious organism (Primary Dx) Start: 09-27-2024 End: 09-27-2024 ambulatory [facility] Start: 09-26-2024 End: 09-26-2024 Telephone encounter Cecilia Pichardo [facility] Start: 08-17-2024 End: 08-17-2024 Emergency department patient visit MIGUEL Vargas [facility] Start: 08-10-2024 End: 08-10-2024 Refjose Spears TRAFFIC WORKFORCE REPRESENTATIVE-SPANISH LECTURER Work Phone: [facility] Start: 07-28-2024 End: 07-28-2024 ambulatory [facility] Start: 07-28-2024 End: 07-28-2024 Office outpatient visit 25 minutes Eileen Fonseca DO Work Phone: [facility] Comment on above: Moderate COPD (chron ic obstructive pulmonary disease) ([facility]) (Primary Dx); Tobacco abuse; Czmvb-4-atnnhamafav deficiency carrier; Primary lung adenocarcinoma, left ([facility]) Start: 07-13-2024 ambulatory MIGUEL Vargas [facility] Start: 07-12-2024 Registered Recurring DO Saad Brock Work Phone: [facility] Work Phone: Start: 07-12-2024 End: 07-12-2024 ambulatory DO Miguel [place] Work Phone: [facility] Work Phone: Start: 07-12-2024 End: 07-12-2024 Patient encounter procedure DO Miguel [place] Work Phone: [facility] Work Phone: Start: 06-20-2024 End: 06-20-2024 Heidi Spears TRAFFIC WORKFORCE REPRESENTATIVE-SPANISH LECTURER Work Phone: [facility] Start: 06-16-2024 End: 06-16-2024 Office outpatient visit 25 minutes Cruz Roche MD Work Phone: [facility] Comment on above: PVD (peripheral vasc ular disease) ([facility]) (Primary Dx); Severe claudication ([facility]); Bilateral carotid artery stenosis; Cigarette smoker Start: 05-26-2024 End: 05-26-2024 Office outpatient new 45 minutes Cruz Roche MD Work Phone: [facility] Comment on above: Severe claudication ([facility]) (Primary Dx); PVD (peripheral vascular disease) ([facility]); Bilateral carotid bruits Start: 05-25-2024 End: 05-25-2024 Telephone encounter Jada Aggarwal CMA [facility] Comment on above: appointment reminder (Called patient to remind her of her appt. On 05/26/24 no answer and VM is full) Start: 05-24-2024 End: 05-24-2024 Refill Navin D Krotzer TRAFFIC WORKFORCE REPRESENTATIVE-SPANISH LECTURER Work Phone: [facility] Start: 05-23-2024 End: 05-23-2024 Orders Only Jada [facility] Start: 05-19-2024 End: 05-24-2024 Refill Navin D Krotzer TRAFFIC WORKFORCE REPRESENTATIVE-SPANISH LECTURER [facility]: [facility] Start: 05-17-2024 End: 05-17-2024 ambulatory DO Miguel House Work Phone: [facility] Work Phone: Start: 05-17-2024 End: 05-17-2024 Patient encounter procedure DO Miguel House Work Phone: [facility] Work Phone: Start: 05-17-2024 Registered Recurring DO Saad s House Work Phone: [facility] Work Phone: Start: 05-05-2024 End: 05-05-2024 Telephone encounter Onofre Phillip [facility] Start: 05-05-2024 End: 05-05-2024 [facility] Start: 05-05-2024 End: 05-05-2024 Office outpatient visit 25 minutes Eileen Fonseca DO Work Phone: [facility] Comment on above: Tobacco abuse (Prima ry Dx); Petad-1-mxczpgnpood deficiency carrier; Moderate COPD (chronic obstructive pulmonary disease) ([facility]); Pulmonary arteriovenous malformation; Pulmonary nodule; Bronchiectasis without complication ([facility]) Start: 05-02-2024 Non-patient / Non-visit DO Arielle rles House Work Phone: [facility] Work Phone: Start: 04-25-2024 End: 04-28-2024 Emergency department patient visit SYL AMARO [facility] Start: 04-25-2024 End: 04-27-2024 ambulatory [facility] Start: 04-20-2024 End: 04-20-2024 ambulatory EILEEN M [facility] Start: 04-20-2024 End: 04-21-2024 ambulatory EILEEN [facility] Start: 04-19-2024 Non-patient / Non-visit DO Arielle rles House Work Phone: [facility] Work Phone: Start: 04-18-2024 End: 04-19-2024 Emergency department patient visit MONICA MANUEL [facility] Start: 04-12-2024 Non-patient / Non-visit DO Arielle rles House Work Phone: [facility] Work Phone: Start: 04-04-2024 Non-patient / Non-visit DO Arielle rles House Work Phone: [facility] Work Phone: Start: 03-23-2024 Non-patient / Non-visit DO Arielle rles House Work Phone: [facility] Work Phone: Start: 03-23-2024 End: 03-23-2024 Telephone encounter Eileen Fonseca DO Work Phone: [facility] Start: 03-22-2024 End: 03-22-2024 ambulatory MIGUEL BROCK Facility:[facility] Start: 03-15-2024 Non-patient / Non-visit DO Arielle culver House Work Phone: [facility] Work Phone: Start: 03-15-2024 Registered Recurring DO Saad s House Work [facility]: [facility] Work Phone: Start: 03-15-2024 End: 03-15-2024 ambulatory DO Miguel Brock Work Phone: [facility] Work Phone: Start: 03-15-2024 End: 03-15-2024 Patient encounter procedure DO Miguel Brock Work Phone: [facility] Work Phone: Start: 03-14-2024 End: 03-28-2024 Telephone encounter [facility] Start: 03-14-2024 End: 03-14-2024 ambulatory MIGUEL BROCK Facility:[facility] Start: 03-04-2024 End: 03-04-2024 Telephone encounter Ferdinand [facility] Start: 03-03-2024 End: 03-03-2024 Office outpatient visit 25 minutes Eileen Fonseca DO Work Phone: [facility] Comment on above: Moderate COPD (chron ic obstructive pulmonary disease) ([facility]) (Primary Dx); Tobacco abuse; Jgkwu-4-vznvglpminw deficiency carrier; Pulmonary nodule Start: 03-03-2024 End: 03-03-2024 amb[facility] Start: 03-02-2024 End: 03-02-2024 Evaluation and management of inpatient [facility] Start: 03-01-2024 End: 03-01-2024 Orders Only Eileen Fonseca DO Work Phone: [facility] Comment on above: Moderate COPD (chron ic obstructive pulmonary disease) ([facility]) (Primary Dx) Start: 03-01-2024 End: 03-02-2024 Evaluation and management of inpatient [facility] Start: 02-26-2024 End: 02-26-2024 ambulatory [facility] Stanislaw [facility] Start: 02-24-2024 ambulatory Norleena Christie Lowell Faci lity:[facility] Start: 02-24-2024 End: 02-24-2024 Patient encounter procedure DO [facility] Work Phone: [facility] Work Phone: Start: 02-23-2024 End: 02-23-2024 ambulatory [facility] Start: 02-12-2024 End: 02-12-2024 ambulatory [facility] Start: 02-05-2024 End: 02-24-2024 ambulatory [facility] Start: 02-02-2024 End: 02-02-2024 Orders Only Eileen Fonseca DO Work Phone: [facility] Comment on above: Non-small cell cance r of left lung ([facility]) (Primary Dx) Start: 02-01-2024 End: 02-02-2024 Emergency department patient visit [facility] Start: 01-28-2024 Orders Only Eileen lopez DO Work Phone: [facility] Start: 01-27-2024 End: 01-27-2024 Evaluation and management of inpatient [facility] Start: 01-26-2024 End: 01-27-2024 Evaluation and management of inpatient [facility] Start: 01-25-2024 End: 01-25-2024 ambulatory [facility] Start: 01-25-2024 Encounter for other preprocedural examination [facility] Start: 01-07-2024 Documentation procedure Beulah owens RN [facility] Start: 01-07-2024 End: 01-07-2024 Office outpatient visit 25 minutes Eileen Fonseca DO Work Phone: [facility] Comment on above: Moderate COPD (chron ic obstructive pulmonary disease) ([facility]) (Primary Dx); Pulmonary nodule; Fhhyd-0-ngksvqisqrj deficiency ([facility]); Dyspnea on exertion; Abnormal CT of the chest; Tobacco abuse Start: 01-07-2024 End: 01-07-2024 ambulatory EILEEN FONSECA [facility] Start: 12-31-2023 Telephone encounter Eileen reich DO Work Phone: [facility] Start: 12-07-2023 Telephone encounter Cecilia [facility] Start: 11-18-2023 End: 11-18-2023 ambulatory MIGUEL BROCK Facility:[facility] Cli stefania Start: 11-12-2023 End: 11-12-2023 ambulatory MIGUEL BROCK Facility:[facility] Cli stefania Start: 10-21-2023 Telephone encounter Angie Gunn LPN [facility] Start: 02-17-[address] MIGUEL BROCK Facili ty:[facility] Start: 08-15-2022 End: 08-16-[address] MIGUEL BROCK Facility:[facility] Start: 02-12-2021 End: 02-13-2021 ambulatory WILLIE [facility] Start: 02-12-2021 End: 02-13-2021 Subsequent hospital visit by physician Willie Parra MD Work Phone: [facility] Comment on above: Abnormal stress test (Primary Dx) Procedures Date Procedure Procedure Detail Performing Clinician Start: 01-05-2025 CT of chest without contrast [employer] Work Phone: Start: 10-06-2024 CT of chest without contrast [employer] Work Phone: Start: 10-06-2024 Ct thorax w/o contrast material Scanning Provider External Start: 01-07-2024 Follow-up visit Follow-up EILEEN FONSECA [...] Td Vaccines (3 - Td or Tdap) [facility] Start: 09-11-2028 DTaP/Tdap/Td vaccine (2 - Td) DTaP/Tdap/Td vaccine (2 - Td) [facility] [employer] Work Phone: Start: 12-11-2026 Screening for malign ant neoplasm of colon Colonoscopy [facility] Start: 12-29-2025 Adult BMI Screening Adult BMI Screen ing [facility] Start: 12-29-2025 Tobacco Screening Tobacco Screening [facility] Start: 11-15-2025 Adult BMI Screening Adult BMI Screen ing [facility] Start: 11-14-2025 Tobacco Screening Tobacco Screening [facility] Start: 11-03-2025 Adult BMI Screening Adult BMI Screen ing [facility] Start: 11-03-2025 Tobacco Screening [facility] Start: 10-21-2025 Adult BMI Screening Adult BMI Screen ing [facility] Start: 10-21-2025 Tobacco Screening [facility] Start: 08-17-2025 Adult BMI Screening Adult BMI Screen ing [facility] Start: 08-17-2025 Tobacco Screening [facility] Start: 07-28-2025 Adult BMI Screening Adult BMI Screen ing [facility] Start: 07-28-2025 Tobacco Screening Tobacco Screening [facility] Start: 06-16-2025 Adult BMI Screening Adult BMI Screen ing [facility] Start: 06-16-2025 Tobacco Screening Tobacco Screening [facility] Start: 06-16-2025 End: 06-16-2025 US Carotid arteries - bilateral Vas carotid duplex bilateral Vascular Ultrasound Routine Bilateral carotid artery stenosis Expected: 06/16/2025 (Approximate), Expires: 06/16/2025 [facility] Work Phone: Comment on above: Expected: 06/16/2025 (Approximate), Expires: 06/16/2025 Start: 05-26-2025 Adult BMI Screening Adult BMI Screen ing [facility] Start: 05-26-2025 Tobacco Screening Tobacco Screening [facility] Start: 05-05-2025 Adult BMI Screening Adult BMI Screen ing [facility] Start: 04-26-2025 Adult BMI Screening Adult BMI Screen ing [facility] Start: 04-25-2025 Tobacco Screening Tobacco Screening [facility] Start: 03-30-2025 End: 03-30-2025 Patient encounter procedure 03/30/2025 9:45 AM EDT Office Visit [facility] [address] [place] [address] [place] [address] [place] [id number] [facility] Start: 03-03-2025 Adult BMI Screening Adult BMI Screen ing [facility] Start: 03-03-2025 Tobacco Screening Tobacco Screening [facility] Start: 03-01-2025 Adult BMI Screening Adult BMI Screen ing [facility] Start: 03-01-2025 Tobacco Screening Tobacco Screening [facility] Start: 01-31-2025 Adult BMI Screening Adult BMI Screen ing [facility] Start: 01-31-2025 Tobacco Screening Tobacco Screening [facility] Start: 01-25-2025 Tobacco Screening Tobacco Screening [facility] Start: 01-06-2025 Adult BMI Screening Adult BMI Screen ing [facility] Start: 01-06-2025 Tobacco Screening Tobacco Screening [facility] Start: 12-29-2024 End: 12-29-2024 Patient encounter procedure 12/29/2024 1:30 PM EST Office Visit [facility] [address] [place] [address] Eileen Fonseca, [place] [id number] [facility] Start: 11-15-2024 End: 11-15-2024 [facility]/cell washg spx BRONCHOSCOPY persistent lingunlar infultrate 11/15/2024 2:00 PM EST [facility] Start: 11-15-2024 End: 11-15-2024 Admission to same day surgery center [facility] Comment on above: ENDOBRONCHIAL ULTRAS OUND BRONCHOSCOPY BRONCHOSCOPY [47353 (CPT )] Start: 11-15-2024 End: 11-15-2024 ENDOBRONCHIAL ULTRASOUND BRONCHOSCOPY [facility] Start: 11-15-2024 Subsequent hospital visit by physician [facility] Start: 11-09-2024 End: 11-09-2024 Admission to establishment 11/09/2024 11:00 AM EST Support Visit [facility] On [address] [phone] [facility] Start: 11-03-2024 End: 11-03-2024 Patient encounter procedure 11/03/2024 1:30 PM EST Office Visit [facility] [address] [place] [phone] Eileen Fonseca, DO [address] [id number] [facility] Start: 10-28-2024 End: 09-27-2025 XR Chest PA and Lateral X-ray chest 2 views Imaging Routine Pneumonia of left lower lobe due to infectious organism Expected: 10/28/2024 (Approximate), Expires: 09/27/2025 [facility] Work Phone: Comment on above: Expected: 10/28/2024 (Approximate), Expires: 09/27/2025 Start: 10-19-2024 Adult BMI Screening Adult BMI Screen ing [facility] Start: 10-19-2024 Tobacco Screening Tobacco Screening [facility] Start: 09-26-2024 End: 09-26-2025 XR Chest PA and Lateral X-ray chest 2 views Imaging Routine Chest pain, unspecified type Expected: 09/26/2024, Expires: 09/26/2025 [facility]: Comment on above: Expected: 09/26/2024 , Expires: 09/26/2025 Start: 08-25-2024 End: 08-25-2024 Patient encounter procedure 08/25/2024 1:45 PM EDT Office Visit [facility] [address] [place] [phone] Eileen Fonseca, DO [address] [address] [facility] Start: 06-26-2024 Influenza vaccination Influenza Vacc ine [facility] Start: 06-23-2024 End: 06-23-2024 Patient encounter procedure 06/23/2024 1:45 PM EDT Office Visit [facility] [address] [place] [address] Eileen Fonseca, DO [address] [address] [facility] Start: 06-16-2024 End: 06-16-2024 Patient encounter procedure 06/16/2024 8:50 AM EDT Office Visit [facility] [address] [place] [phone] Cruz Roche MD [address] [address] [facility] Start: 05-26-2024 End: 05-26-2025 US Carotid arteries - bilateral Vas carotid duplex bilateral Vascular Ultrasound Routine Bilateral carotid bruits Expected: 05/26/2024, Expires: 05/26/2025 [facility]: Comment on above: Expected: 05/26/2024 , Expires: 05/26/2025 Start: 05-26-2024 End: 05-26-2025 US.doppler Extremity arteries - bilateral for physiologic artery study Vas art doppler lwr bilat mult lev/PVR Vascular Ultrasound Routine PVD (peripheral vascular disease) ([facility]) Severe claudication ([facility]) Expected: 05/26/2024, Expires: 05/26/2025 [facility] Comment on above: Expected: 05/26/2024 , Expires: 05/26/2025 Start: 05-26-2024 End: 05-26-2024 Patient encounter procedure [facility] Start: 05-05-2024 End: 05-05-2024 Patient encounter procedure 05/05/2024 12:30 PM EDT Office Visit [facility] [address] [place] [address] Eileen Fonseca, DO [address] [address] [facility] Start: 04-20-2024 End: 04-20-2024 Patient encounter procedure [facility] - Pulmonary Function Start: 03-08-2024 End: 03-08-2024 Admission to same day surgery center 03/08/2024 8:30 AM EDT - 03/08/2024 10:00 AM EDT Surgery [facility] [address] [place] [phone] Quentin Kaufman MD [address] [place] [address], [address] [place] [address] ENDOBRONCHIAL ULTRASOUND BRONCHOSCOPY [facility] Comment on above: ENDOBRONCHIAL ULTRAS OUND BRONCHOSCOPY Start: 03-08-2024 End: 03-08-2024 ENDOBRONCHIAL ULTRASOUND BRONCHOSCOPY ENDOBRONCHIAL ULTRASOUND BRONCHOSCOPY LUNG LESION 03/08/2024 8:30 AM EDT [facility] Start: 03-08-2024 Subsequent hospital visit by physician 03/08/2024 8:30 AM EDT Hospital Encounter [facility] [address] [facility] [place] [phone] Quentin Kaufman MD [address] [place] [address], [address] [place], [place] [id number] [facility] Start: 03-04-2024 End: 03-04-2025 XR Shoulder - left 2 Views X-ray shoulder left minimum 2 views Imaging Routine S/P reverse total shoulder arthroplasty, left Left shoulder pain, unspecified chronicity Expected: 03/04/2024, Expires: 03/04/2025 [facility] Work Phone: Comment on above: Expected: 03/04/2024 , Expires: 03/04/2025 Start: 03-03-2024 End: 03-03-2024 Patient encounter procedure 03/03/2024 2:00 PM EDT Office Visit [facility] [address] [place] [phone] Eileen Fonseca, DO [address] [address] [facility] Start: 02-24-2024 Patient referral [facility] Work Phone: Start: 02-05-2024 Urine screening for protein Urine Microalbumin [facility] Start: 02-05-2024 End: 02-05-2024 Patient encounter procedure 02/05/2024 10:30 AM EDT Appointment [facility] - Radiation Oncology [address] [place] [phone] [facility] - Radiation Oncology Start: 02-02-2024 End: 02-01-2025 PT Skull base to mid-thigh PET CT skull to thigh Imaging Routine Non-small cell cancer of left lung ([facility]) Expected: 02/02/2024, Expires: 02/01/2025 [facility] Work Phone: Comment on above: Expected: 02/02/2024 , Expires: 02/01/2025 Start: 01-26-2024 End: 01-26-2024 Admission to same day surgery center 01/26/2024 12:00 PM EDT - 01/26/2024 1:00 PM EDT Surgery [facility] - Endoscopy [address] [place] [phone] Eileen Fonseca, DO [address] [address] BRONCHOSCOPY ALVEOLAR LAVAGE [65664 (CPT )] [facility] Comment on above: BRONCHOSCOPY ALVEOLA R LAVAGE [27543 (CPT )] Start: 01-26-2024 End: 01-26-2024 [facility]avage BRONCHOSCOPY ALVEOLAR LAVAGE LANGULAR OBSTRUCTION AND CHRONIC COUGH 01/26/2024 12:00 PM EDT [facility] Start: 01-26-2024 Subsequent hospital visit by physician 01/26/2024 12:00 PM EDT Hospital Encounter [facility] [address] [place] [address] Eileen Fonseca, DO [address] [address] [facility] Start: 01-19-2024 End: 01-19-2024 Admission to establishment 01/19/2024 10:00 AM EDT Support Visit [facility] On [address] [address] [facility] On [facility] Start: 01-07-2024 End: 01-07-2024 Patient encounter procedure 01/07/2024 11:30 AM EDT Office Visit [facility] [address] [place] [phone] Eileen Fonseca, DO [address] [address] [facility] Start: 12-24-2023 End: 12-24-2023 Patient encounter procedure 12/24/2023 3:45 PM EST Office Visit [facility] [place] [address] Eileen Fonseca, DO [address] [address] [facility] Start: 06-26-2023 COVID-19 Vaccine ( season) COVID-19 Vaccine () [facility] Start: 06-05-2022 [facility] Start: 09-11-2021 COVID-19 Vaccine (3 - Moderna risk series) COVID-19 Vaccine (3 - Moderna risk series) [facility] Start: 06-26-2021 Influenza vaccination Flu vacc ine (Season Ended) [facility] Phone: Start: 02-08-2021 Annual Wellness Visi t (AWV) Annual Wellness Visit (AWV) [facility] Phone: Start: 11-10-2020 Administration of varicella zoster vaccine Zoster (Shingles) Vaccine (2 of 2) [facility] Start: 2017 Fall Risk Screening Fall Risk Screen ing [facility] Start: 2017 Pneumococcal 65+ yea rs Vaccine (2 of 2 - PPSV23) Pneumococcal 65+ years Vaccine (2 of 2 - PPSV23) [facility] Phone: Start: 2007 Screening for osteoporosis DEXA (modify frequency per FRAX score) [facility] Phone: Start: 2002 Screening for malign ant neoplasm of breast Breast cancer screen [facility] [facility] [employer] Phone: Start: 2002 Screening for malign ant neoplasm of colon Colon cancer screen colonoscopy [facility] Phone: Start: 2002 Shingles Vaccine (1 of 2) Shingles Vaccine (1 of 2) [facility] Phone: Start: 1970 Adult BMI Follow Up Plan Adult BMI F ollow Up Plan [facility] Start: 1970 Diabetic foot examination [facility] Start: 1968 COVID-19 Vaccine (1) COVID-19 Vaccin e (1) [facility] Phone: Start: 1964 Depression Screening [facility] Start: 1962 Lipid panel Lipid screen [facility] Phone: Start: 1952 Glaucoma screening Diabetic Op hthalmology Exam [facility] Start: 1952 Hepatitis C screening Hepatitis C sc briannen [facility] [facility] Phone: Start: 1952 Medicare Annual Well ness Visit Medicare Annual Wellness Visit [facility] Start: 1952 Tobacco Counseling Tobacco Counselin g [facility] End: 09-26-2025 Basic metabolic 2000 panel - Serum or Plasma Basic Metabolic Panel Lab Routine Chest pain, unspecified type 1 Occurrences starting 09/26/2024 until 09/26/2025 [facility] Comment on above: 1 Occurrences starti ng 09/26/2024 until 09/26/2025 End: 09-26-2025 CBC W Auto Differential panel - Blood CBC auto differential Lab Routine Chest pain, unspecified type 1 Occurrences starting 09/26/2024 until 09/26/2025 [facility] Comment on above: 1 Occurrences starti ng 09/26/2024 until 09/26/2025 CT Chest WO contrast [facility] CT Chest WO contrast [facility] CT Chest WO contrast [facility] End: 09-26-2025 D-Dimer D-Dimer Lab Routine Chest pain, unspecified type 1 Occurrences starting 09/26/2024 until 09/26/2025 [facility] Comment on above: 1 Occurrences starti ng 09/26/2024 until 09/26/2025 End: 02-12-2021 Glucose [Mass/volume] in Serum or Plasma POCT Glucose Point of Care Testing Routine One Time for 1 Occurrences starting 02/12/2021 until 02/12/2021 [facility] Phone: Comment on above: One Time for 1 Occur rences starting 02/12/2021 until 02/12/2021 End: 05-05-2025 Home O2 eval (desaturation screen) Home O2 eval (desaturation screen) Respiratory Care Routine Moderate COPD (chronic obstructive pulmonary disease) ([facility] 1 Occurrences starting 05/05/2024 until 05/05/2025 [facility] Phone: Comment on above: 1 Occurrences starti ng 05/05/2024 until 05/05/2025 End: 01-06-2025 Home O2 eval (desaturation screen) Home O2 eval (desaturation screen) Respiratory Care Routine Dyspnea on exertion 1 Occurrences starting 01/07/2024 until 01/06/2025 [facility] Work Phone: Comment on above: 1 Occurrences starti ng 01/07/2024 until 01/06/2025 Oxygen therapy [[facility] Data Set] Initiate Oxygen Therapy Protocol Respiratory Care Routine Daily until discontinued starting 02/12/2021 [facility] Work Phone: Comment on above: Daily until disconti nued starting 02/12/2021 Patient referral [facility] Work Phone: End: 03-01-2025 Pulmonary function test Complete PFT w/ BD (Spirometry (Flow Volume Loop) pre/post short acting bronchodilator w/ DLCO (diffusion study) and Lung Volume) Pulmonary function test Complete PFT w/ BD (Spirometry (Flow Volume Loop) pre/post short acting bronchodilator w/ DLCO (diffusion study) and Lung Volume) PFT Routine Moderate COPD (chronic obstructive pulmonary disease) ([facility] 1 Occurrences starting 03/01/2024 until 03/01/2025 [facility] Work Phone: Comment on above: 1 Occurrences starti ng 03/01/2024 until 03/01/2025 [facility] Immunizations Immunization Date Immunization Notes Care Provider Marium chatman 08-10-2023 influenza virus vaccine, unspecified formulation Eileen Fonseca DO Work Phone: [facility] 06-04-2022 tetanus toxoid, redu anthony diphtheria toxoid, and acellular pertussis vaccine, adsorbed Angie Guy [facility] 09-15-2020 zoster vaccine recombinant Angie Luis [facility] 09-15-2020 zoster vaccine, unspecified formulation Angie Gunn [facility] 08-10-2020 pneumococcal conjuga te vaccine, 13 valent Angie Luis [facility] 09-23-2018 influenza, injectabl e, quadrivalent, preservative free Angie Luis [facility] 09-11-2018 tetanus toxoid, redu anthony diphtheria toxoid, and acellular pertussis vaccine, adsorbed Angie Guy [employer] [facility] 11-01-2015 influenza, seasonal, injectable, preservative free Angie Guy [facility] 09-13-2009 novel [id number], preservative-free, injectable Angie Guy [facility] Payers Date Payer Category Payer Self-pay [id number] 2020 Medicaid [id number] 2019 Medicaid [id number] 2019 Medicare [employer] MEDICARE UHC MEDICARE DUAL COMPLETE [id number] 2019-Present [phone] [address] [address] [place] [address] [id number] 2019 Medicare HMO [employer] MEDICARE [id number] 2017 Medicare [id number] 2016 Medicaid [id number] 2015 Medicare [id number] 1952 Unknown [id number] 2.16.840.1.122435.3.579.2.1 77 1952 Unknown [id number] 2.16.840.1.430459.3.579.2.5 93 1952 Unknown [id number] 2.16.840.1.219549.3.579.2.5 93 1952 Unknown [id number] 2.16.840.1.976651.3.579.2.7 18 1952 Unknown [id number] 2.16.840.1.676728.3.579.2.7 18 1952 Unknown [id number] 2.16.840.1.334834.3.579.2.7 18 1952 Unknown [id number] 2.16.840.1.850987.3.579.2.7 18 1952 Unknown [id number] 2.16.840.1.546939.3.579.2.1 286 1952 Unknown [id number] 2.16.840.1.988084.3.579.2.1 286 1952 Unknown [id number] 2.16.840.1.799865.3.579.2.1 286 1952 Unknown [id number] 2.16.840.1.400818.3.579.2.1 286 1952 Unknown [id number] 2.16.840.1.141028.3.579.2.1 286 1952 Unknown [id number] 2.16.840.1.071324.3.579.2.1 286 1952 Unknown [id number] 2.16.840.1.337220.3.579.2.1 286 1952 Unknown [id number] 2.16.840.1.380106.3.579.2.1 286 1952 Unknown [id number] 2.16.840.1.391196.3.579.2.1 286 1952 Unknown [id number] 2.16.840.1.010863.3.579.2.1 286 1952 Unknown [id number] 2.16.840.1.344897.3.579.2.1 286 1952 Unknown [id number] 2.16.840.1.306585.3.579.2.1 286 1952 Unknown [id number] 2.16.840.1.771876.3.579.2.1 286 1952 Unknown [id number] 2.16.840.1.272674.3.579.2.1 286 1952 Unknown [id number] 2.16.840.1.772922.3.579.2.1 1952 Unknown [id number] 2.16.840.1.331180.3.579.2.1 1952 Unknown [id number] 2.16.840.1.831313.3.579.2.1 1952 Unknown [id number] 2.16.840.1.084531.3.579.2.1 286 1952 Unknown [id number] 2.16.840.1.931250.3.579.2.1 1952 Unknown [id number] 2.16.840.1.348799.3.579.2.1 1952 Unknown [id number] 2.16.840.1.974163.3.579.2.1 1952 Unknown [id number] 2.16.840.1.854245.3.579.2.1 1952 Unknown [id number] 2.16.840.1.634518.3.579.2.1 1952 Unknown [id number] 2.16.840.1.764271.3.579.2.1 286 1952 Unknown [id number] 2.16.840.1.129598.3.579.2.1 286 1952 Unknown [id number] 2.16.840.1.448725.3.579.2.1 286 1952 Unknown [id number] 2.16.840.1.865845.3.579.2.1 286 1952 Unknown [id number] 2.16.840.1.748842.3.579.2.1 286 1952 Unknown [id number] 2.16.840.1.494966.3.579.2.1 286 1952 Unknown [id number] 2.16.840.1.753134.3.579.2.1 286 1952 Unknown [id number] 2.16.840.1.535082.3.579.2.1 286 1952 Unknown [id number] 2.16.840.1.326431.3.579.2.1 286 1952 Unknown [id number] 2.16.840.1.103099.3.579.2.1 286 1952 Unknown [id number] 2.16.840.1.530577.3.579.2.1 286 1952 Unknown [id number] 2.16.840.1.096066.3.579.2.1 286 1952 Unknown [id number] 2.16.840.1.821477.3.579.2.1 286 1952 Unknown [id number] 2.16.840.1.380197.3.579.2.1 286 1952 Unknown [id number] 2.16.840.1.613142.3.579.2.1 1952 Unknown [id number] 2.16.840.1.533622.3.579.2.1 286 1952 Unknown [id number] 2.16.840.1.665297.3.579.2.1 286 1952 Unknown [id number] 2.16.840.1.034591.3.579.2.1 286 1952 Unknown [id number] 2.16.840.1.489167.3.579.2.1 286 Unknown [id number] 2.16.840.1.602610.3.579.2.5 31 Social History Date Type Detail Facility Start: 10-26-1973 End: 11-14-2024 Tobacco smoking status [facility] Start: 02-12-2021 End: 02-14-2021 Cigarettes smoked current (pack per day) - Reported [facility] [facility] Phone: Start: 02-12-2021 End: 11-14-2024 Tobacco use and exposure Never used [facility] Start: 02-12-2021 End: 01-26-2024 Alcohol intake Current drinker of alcohol (finding) [facility] Phone: Start: 11-22-2015 Alcohol Comment RARE 1 DRINK E VERY 6 MONTHS [facility] Phone: Start: 1950 Sex Assigned At Not on file [facility] Phone: Exposure to SARS-CoV -2 (event) Not sure [facility] Start: 02-24-2024 End: 05-17-2024 Tobacco smoking status NMIS Smoker (finding) [facility] Start: 1950 Sex Assigned At Female F [facility] Start: 10-26-1973 End: 10-16-2023 History of tobacco use [facility]igarette Smoker [facility] Start: 10-21-2024 End: 12-29-2024 Alcoholic beverage intake Ex-drinker (finding) [facility] Start: 02-14-2021 End: 10-21-2024 [facility] Utilities [facility] Has the [employer], or water company threatened to shut off services in your home in past 12Mo No [facility] Attends Club or Organization Meetings Not on file [facility] How often to you hav e a drink containing alcohol? Monthly or less [facility] How many standard dr inks containing alcohol do you have on a typical day? 1 or 2 [facility] How often do you hav e 6 or more drinks on 1 occasion? Never [facility] Do you feel stress - tense, restless, nervous, or anxious, or unable to sleep at night because your mind is troubled all the time - these days [OSQ] Not at all [facility] Start: 04-25-2024 Tobacco Comment Every now and then will have a cigarrette [facility] Start: 02-14-2021 Alcohol Comment rare [facility] Start: 05-31-2015 End: 01-10-2025 Sex Female (finding) [facility] Start: 11-14-2024 Tobacco Comment Every now and then will have a cigarrette/now down to 0.25 ppd [facility] Start: 01-07-2024 End: 02-01-2024 Tobacco smoking status NHIS Ex-smoker [facility] Start: 04-25-2024 Tobacco smoking stat us [facility] Occasional tobacco smoker [facility] Has the [employer], [employer], oil, or water company threatened to shut off services in your home in past 12Mo Yes [facility] Medical Equipment Procedure Code Equipment Code Equipment Origin al Text Equipment Identifier Dates AAA repair with graft GRAFT HEMASHIELD [id number] FDA Start: 04-18-2019 AAA repair with graft GRAFT HEMASHIELD [id number] FDA Start: 04-18-2019 AAA repair with graft GRAFT HEMASHIELD [id number] FDA Start: 04-18-2019 AAA repair with graft GRAFT HEMASHIELD [id number] FDA Start: 04-18-2019 Brng Hum 36-44mm Std Shldr - [id number] Start: 09-13-2018 Plg Bn Cmnt Med 11-13mm Im Cnl - [id number] Start: 09-13-[address] c Rpl [id number] - [id number] Start: 09-13-2018 Cbl Orth Lcp 750 mm Ss 1.7mm - [id number] Start: 09-13-2018 Lens Iol Ultrase rt 20.5d - [id number] - [id number] Start: 09-02-2018 Gd Pin Orth 3.2m m 9in Stnm - [id number] Start: 09-13-2018 Bsplt Kim Cmprh 25mm Mn Tpr - [id number] Start: 09-13-2018 Bsplt Kim 36mm Cmprh - [id number] Start: 09-13-2018 Stm Hum 122mm 10 mm Cmprh Por - [id number] Start: 09-13-2018 Ty Hum Cmprh 44m m Cocr +5mm - [id number] Start: 09-13-2018 Scr Bn 20mm 4.75 mm Fx Ang Lck - [id number] Start: 09-13-2018 Scr Bn 25mm 4.75 mm Fx Ang Lck - [id number] Start: 09-13-2018 Scr Bn 25mm 6.5m m Cntr Hex - [id number] Start: 09-13-2018 Scr Bn 20mm 4.75 mm Va Nonlock - [id number] Start: 09-13-2018 Scr Bn 15mm 4.75 mm Va Nonlock - [id number] Start: 09-13-2018 [id number] Start: 07-22-2022 Goals Date Patient Goal Desired Activity /State Personal health goal Comment on above: Formatting of this n ote might be different from the original. Evaluation of progress towards goal: feeling better, goal of home going Personal health goal Comment on above: Formatting [...] not feel well Clinical Notes 02-12-2021 to 01-10-2025 Telephone Encounter - PRAVEEN Osei - 01/02/2025 10:05 AM EDTTelephone Encounter - Eileen Fonseca DO - 01/02/2025 10:05 AM EDTTelephone Encounter - PRAVEEN Osei - 01/02/2025 10:05 AM EDT Note Date & Type Note Facility 01-10-2025 Progress note [facility] enter 01-02-2025 Miscellaneous Notes Patient called office and stated that she is experiencing muscle spasms from the Levaquin, she stated that she was informed by SE to stop the medication and call the office. Will send cefdinir instead. Please update her. Thanks [employer] called patient and left voicemail informing her that SE sent cefdinir to her pharmacy. documented in this encounter [facility] 01-02-2025 Telephone encounter Note Patient called office and stated that she is experiencing muscle spasms from the Levaquin, she stated that she was informed by SE to stop the medication and call the office. [facility] 01-02-2025 Telephone encounter Note Will send cefdinir instead. Please update her. Thanks [facility] 01-02-2025 Telephone encounter Note [employer] called patient and left voicemail informing her that SE sent cefdinir to her pharmacy. [facility] 12-29-2024 Miscellaneous Notes [employer] called and spoke with Sophy at [facility] requesting labs that were done on 12.22.24 be faxed to our office. Sophy said she would fax them over. documented in this encounter [facility] 12-29-2024 Telephone encounter Note [employer] called and spoke with Sophy at [facility] requesting labs that were done on 12.22.24 be faxed to our office. Sophy said she would fax them over. [facility] 12-29-2024 History of Presen t illness Narrative Images from the original note were not included. [facility] Progress Note Patient - Jazzmine Patel Age - 74 y.o. 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 Increase aerosols to every 4 hours while ill Increase HTS 3% to BID while ill Hold maintenance doxycycline and will treat with Levaquin x 10 days. ASdvised to stop if muscle aches/ pain and call my office if occurs Prednisone taper and Tamiflu sent. Continue Breztri BID with spacer Continue O2 Fluids and hydration encouraged. Reviewed CXR from 12/16 RTC in 3 months or earlier if needed. MARLINE Dover presents for follow up of her COPD, history of lung cancer and nocturnal hypoxia. She was last seen in October. We had discussed her recurrent pneumonias symptoms in the lingula and recurrent changes/persistent changes on imaging. She underwent bronchoscopy later in the month which identified some post radiation swelling in the opening to the lingular bronchus. This had nearly completely swelled shut. Biopsies were taken of the segment which revealed chronic inflammation were likely post treatment changes. Additionally she had an abnormal lesion which was seen in the bronchus intermedius which was also biopsied extensively and was most consistent with inflammatory process as well and not diagnostic of neoplasm. Today she presents with increased cough, wheeze, fever, severe headache, chills, sweats,general feeling of unwellness. Her sister was recently diagnosed with influenza. Symptom onset 3 days ago. VITALS BP 159/87 Pulse (!) 136 Ht 170.2 cm (5' 7 ) Wt 54.9 kg (121 lb 1.6 oz) LMP (LMP Unknown) SpO2 94% BMI 18.97 kg/m Exam General: Alert, oriented, ill appearing. Coughing. HEENT: Moist mucosal membranes, no oral lesions or oral thrush, trachea midline Chest: Diminished with no crackles or wheezeing Normal AP diameter. CV: Regular rate regular rhythm Extremities: No edema, erythema, distal cyanosis, clubbing Integumentary: Warm and dry. No rash or lesion Neuro: No lateralizing deficits. No tremors Meds Medications Reviewed. Lab Results PFT Results Radiology Chest 2 views 12/16/24 History: Pneumonia of left lower lobe due to infectious organism Comparison: 11/03/2024 Findings: Chest 2 views. The cardiac mediastinal silhouette. Decreasing left lower lung and lingular opacity with mild left perihilar and lingular volume loss remaining. Emphysematous change. Impression: Persistent left perihilar and lingular volume loss or atelectasis. No significant interval change or new or acute process. Dr. Eileen Fonseca DO. [facility] Office: [phone] documented in this encounter [facility] 12-28-2024 Miscellaneous Notes [employer] called and left voicemail for patient to call office due to her insurance being OON. documented in this encounter [facility] 12-28-2024 Telephone encounter Note [employer] called and left voicemail for patient to call office due to her insurance being OON. [facility] 11-21-2024 Miscellaneous Notes Patient called and asked about her biopsy results, please review and advise. Cecilia Jaimes- can you call pathology- this was waiting on 2nd opinion from [facility]. The report in EPIC that is listed still says that it is a preliminary report in the result but is labeled final. I do not see anything from [place]. Patient was called and updated. [employer] called pathology and spoke with leonor Gaona the slides were sent to [facility] today she said to call them back on Thursday (11/23/2024) to recheck on results if not in EPIC. Patient called today asking about her results. [employer] called pathology and spoke with leonor Lu results have not been signed yet, said it can take a few weeks before finalized documented in this encounter [facility] 11-21-2024 Telephone encounter Note Patient called and asked about her biopsy results, please review and advise. [facility] 11-21-2024 Telephone encounter Note Cecilia Jaimes- can you call pathology- this was waiting on 2nd opinion from [facility]. The report in EPIC that is listed still says that it is a preliminary report in the result but is labeled final. I do not see anything from [place]. Patient was called and updated. [facility] 11-21-2024 Telephone encounter Note [employer] called pathology and spoke with Candelaria, leonor Gaona the slides were sent to [facility] today she said to call them back on Thursday (11/23/2024) to recheck on results if not in EPIC. [facility] 11-21-2024 Telephone encounter Note Patient called today asking about her results. [employer] called pathology and spoke with leonor Lu results have not been signed yet, said it can take a few weeks before finalized [facility] 11-10-2024 Miscellaneous Notes Spoke to Eunice (sister). I was unable to contact patient. Informed her of time change for EBUS. Same date 11/15/24 but arrival time of noon now. Procedure at 2pm. documented in this encounter [facility] 11-10-2024 Telephone encounter Note Spoke to Eunice (sister). I was unable to contact patient. Informed her of time change for EBUS. Same date 11/15/24 but arrival time of noon now. Procedure at 2pm. [facility] 11-09-2024 Instructions Formatting of th is note might be different from the original. Your surgery/procedure is scheduled at [facility] on 11/15/24 at 2:00 Arrival Time 12:00 [facility] Address: [address] [place] [address]. [place], [place] [address] [address] located on [facility]. Report to the Entrance B. Check in at the information desk the surgery. The waiting room located on the second floor. If you have any questions prior to surgery, please call Pre-Admission Clinic at [phone] between 7:30 am and 4:30 pm Thursday through Thursday. If you have questions the morning of surgery, please call the Pre-op Department at [phone]. Notify your SURGEON if you develop any illness such as a cold, cough, fever, sore throat, vomiting or are hospitalized between now and your surgery. Medication Instructions (Do not stop your medications without consulting the prescribing physician). Take the following medications the morning of surgery with a sip of water: Cardizem, Imdur, Prednisone, BRING ampule of neb. Solution/ and inhalers Diabetic or Weight loss medications: HOLD none LAST DOSE none Take inhalers as prescribed the morning of surgery. Due to the risk associated with these medications. If these medications are not held per instruction below, your surgery is at an increased risk for cancellation. SGLT2 Medications- Hold 3 days prior to surgery: Jardiance, Empagliflozin, Farxiga, Dapagliflozin, Invokana, Canagliflozin, Trijardy, Synjardy GLP-1 Medications (Injection or Pill)- If taken daily hold day of surgery. If taken weekly, hold 1 week prior to surgery: Adlyxin, Byetta, Bydureon, Ozempic, Rybelsus,Trulicity, Victoza, Wegovy, Lixisenatide, Exenatide, Semaglutide, Dulaglutide, Liraglutide GIP/GLP-1(Injection or Pill)- If taken daily hold day of surgery. If taken weekly, hold 1 week prior to surgery: Mounjaro . Blood thinners: Please contact your prescribing physician regarding a stop/hold date for these medications. Medications such as Coumadin, Heparin, Aspirin, Plavix, Eliquis, Pradaxa/Patient holding Eliquis, aspirin 2 days prior to procedure as per office instructions. Diabetics: If you take insulin, contact your prescribing doctor for instructions on how to manage this the night before and the morning of surgery. Non-steriodal Anti-Inflammatory Drugs (NSAIDS)- Hold 3 days prior to surgery unless otherwise directed by your surgeon. Vitamins/Herbal Products: You may continue to take your prescribed vitamins such as potassium, iron, vitamin B, vitamin C, or multivitamin unless specifically instructed by your surgeon to hold. STOP taking all herbal products/teas one week prior to your surgery. Marijuana: Stop marijuana 72 hours prior to surgery, stop CBD oil 48 hours prior to surgery. If you have been given bowel prep instructions by your surgeon, please call the surgeon's office with any questions about these instructions. What do I do the day of Surgery? Age 2 through adult - Stop all solids by midnight, You may have clear liquids up to 2 hours before surgery, unless otherwise instructed by your surgeon. Clear liquids are: water, sports drinks such as Gatorade or G2, or apple juice. You may NOT have: tube feedings, dairy products, alcoholic beverages, orange juice, or any liquids with solids or pulp in it. If applicable, shower again with CHG soap the morning of your surgery. If you received a green plastic bracelet, bring it with you the day of surgery and your nurse will put it on you. In order to help prevent infection post-operatively, you may be asked to use a CHG mouthwash when you arrive to the Pre-op area. Your nurse will provide instruction the morning of. What do I need to do to prepare for surgery? If you will be going home the same day as your surgery, arrange for an adult over [address] Riding in a bus or taxi by yourself is not permitted. You should not smoke or drink alcohol 24 hours before your surgery. Alcohol thins the blood and may cause bleeding problems during surgery. Smoking increases the risk of breathing problems after surgery. Do not use lotions, creams, powders, perfume, make up, cologne or after-shaves day of surgery. Remove ALL jewelry including wedding rings, body piercings (including dermal piercings ,hair extensions that contain metal, nail andorran, make-up, and contact lens. You may brush your teeth the morning of surgery, but do not swallow the water. Wear your dentures and partial plates to the hospital (no adhesive). Shower the night the before. If applicable, use the CHG (chlorhexidine gluconate) soap or wipes What should I bring to the hospital? If you received a green plastic bracelet, bring it with you the day of surgery and your nurse will put it on you. Eyeglass or contact lens case If you will be spending the night, please bring personal care items and leave them in the car until you are taken to your room after surgery. Leave ALL valuables at home. If any of these instructions conflict with those you received from the surgeon, please seek clarification from your surgeon's office. DEEP BREATHING EXERCISES This exercise helps promote good air exchange and helps to prevent pneumonia after surgery. Breathe in slowly and deeply through the nose. Hold your breath for a few seconds and then exhale slowly through the mouth. Repeat this three times and then cough.Coughing helps to clear your lungs. If you have had a surgery with an incision into your abdomen or chest, press gently against your incision with a pillow or a folded blanket when you cough. Please be aware - it may not be magana to cough following some types of surgeries involving the eyes, ears, sinuses and throat. Always follow your doctor's instructions. LEG EXERCISE These exercises help promote good circulation and help to prevent blood clots after surgery. Point your toes to the ceiling and then point them to the wall. Do this slowly about 15-20 times. You may also move your feet in circles. Do the exercise that is most comfortable for you. If you have had surgery involving your shoulder or arm, we recommend you move your fingers. PRACTICING We ask that you begin practicing these exercises before your surgery. After surgery try to do both exercises at least every 2 hours during the day and early evening. SURGICAL SITE INFECTION PREVENTION What is a Surgical Site Infection? Infection can happen to the area of the body where surgery is done. This is called a surgical site infection (SSI). A SSI does not happen very often. Can SSIs be treated? Antibiotics are used to treat SSI. Some patients may need another surgery to treat the infection. The doctor will discuss treatment options with you. What are some of the things that hospitals are doing to prevent SSIs? Soap and water or alcohol hand rub are used before and after caring for each patient. Special soap is used to clean surgery workers hands and arms just before the surgery. Masks, gowns, gloves and hair covers are worn during the surgery to keep the area clean. Hair in the surgery area may be removed with clippers (not razors). A special soap that kills germs is used to clean the skin at the surgery site. Antibiotics may be given before the surgery starts. What can you do to prevent SSIs? Before surgery: You may be asked to shower or bathe with a special soap that kills germs the night before and the day of surgery. Use the soap as you were told. If you smoke, stop or cut down. Ask your doctor about ways to quit. Do not shave near where you will have surgery. Shaving can irritate the skin and make it easier to get and infection. After surgery: Be sure that the doctors and nurses clean their hands before and after touching you. Be sure your family and friends clean their hands before and after visiting you. Do not be afraid to remind them. * Care for your wound at home as told by your doctor or nurse * Call your doctor right away if you have fever, redness, increased pain, or drainage at the surgery site. Further questions? Contact the doctor, nurse or the Infection Prevention and Control department if you have any questions. PATIENT RIGHTS AND RESPONSIBILITIES As a patient at [facility], you have the right to: Receive medical care and be informed of who is taking care of you Be treated with dignity and respect Have a family member/chemical sales representative of choice and your physician notified of your admission Receive information and actively participate in decisions about your care and treatment Refuse care, treatment and services Decide who may provide your support and speak for you Access shinto and spiritual services Participate in ethical issues and questions about your care Receive private and confidential care Have appropriate assessment and management of your pain Know guest visitation restrictions or limitations Have an advance directive Access protective services Consent or refuse to participate in research studies or production or recordings, films or other images Have resolution of your complaints Receive information of hospital charges and payment methods Patient/patient chemical sales representative responsibilities are to: Provide information about health status to facilitate care, treatment and services Follow the treatment, plan, keep appointments and speak up when you do not understand the plan Respect the rights of other patients and healthcare personnel Follow organizational rules and regulations that support quality care and a safe environment Fulfill financial obligations as promptly as possible [facility] 11-09-2024 Miscellaneous Notes Your surgery/procedure is scheduled at [facility] on 11/15/24 at 2:[address] Time 12:00 [facility] Address: [address] [place] [address]. [place] [address] [address]ing [address] located on [facility]. Report to the Entrance B. Check in at the information desk the surgery. The waiting room located on the second floor. If you have any questions prior to surgery, please call Pre-Admission Clinic at [phone] between 7:30 am and 4:30 pm Thursday through Thursday. If you have questions the morning of surgery, please call the Pre-op Department at [phone]. Notify your SURGEON if you develop any illness such as a cold, cough, fever, sore throat, vomiting or are hospitalized between now and your surgery. Medication Instructions (Do not stop your medications without consulting the prescribing physician). Take the following medications the morning of surgery with a sip of water: Cardizem, Imdur, Prednisone, BRING ampule of neb. Solution/ and inhalers Diabetic or Weight loss medications: HOLD none LAST DOSE none Take inhalers as prescribed the morning of surgery. Due to the risk associated with these medications. If these medications are not held per instruction below, your surgery is at an increased risk for cancellation. SGLT2 Medications- Hold 3 days prior to surgery: Jardiance, Empagliflozin, Farxiga, Dapagliflozin, Invokana, Canagliflozin, Trijardy, Synjardy GLP-1 Medications (Injection or Pill)- If taken daily hold day of surgery. If taken weekly, hold 1 week prior to surgery: Adlyxin, Byetta, Bydureon, Ozempic, Rybelsus,Trulicity, Victoza, Wegovy, Lixisenatide, Exenatide, Semaglutide, Dulaglutide, Liraglutide GIP/GLP-1(Injection or Pill)- If taken daily hold day of surgery. If taken weekly, hold 1 week prior to surgery: Mounjaro . Blood thinners: Please contact your prescribing physician regarding a stop/hold date for these medications. Medications such as Coumadin, Heparin, Aspirin, Plavix, Eliquis, Pradaxa/Patient holding Eliquis, aspirin 2 days prior to procedure as per office instructions. Diabetics: If you take insulin, contact your prescribing doctor for instructions on how to manage this the night before and the morning of surgery. Non-steriodal Anti-Inflammatory Drugs (NSAIDS)- Hold 3 days prior to surgery unless otherwise directed by your surgeon. Vitamins/Herbal Products: You may continue to take your prescribed vitamins such as potassium, iron, vitamin B, vitamin C, or multivitamin unless specifically instructed by your surgeon to hold. STOP taking all herbal products/teas one week prior to your surgery. Marijuana: Stop marijuana 72 hours prior to surgery, stop CBD oil 48 hours prior to surgery. If you have been given bowel prep instructions by your surgeon, please call the surgeon's office with any questions about these instructions. What do I do the day of Surgery? Age 2 through adult - Stop all solids by midnight, You may have clear liquids up to 2 hours before surgery, unless otherwise instructed by your surgeon. Clear liquids are: water, sports drinks such as Gatorade or G2, or apple juice. You may NOT have: tube feedings, dairy products, alcoholic beverages, orange juice, or any liquids with solids or pulp in it. If applicable, shower again with CHG soap the morning of your surgery. If you received a green plastic bracelet, bring it with you the day of surgery and your nurse will put it on you. In order to help prevent infection post-operatively, you may be asked to use a CHG mouthwash when you arrive to the Pre-op area. Your nurse will provide instruction the morning of. What do I need to do to prepare for surgery? If you will be going home the same day as your surgery, arrange for an adult over [address] Riding in a bus or taxi by yourself is not permitted. You should not smoke or drink alcohol 24 hours before your surgery. Alcohol thins the blood and may cause bleeding problems during surgery. Smoking increases the risk of breathing problems after surgery. Do not use lotions, creams, powders, perfume, make up, cologne or after-shaves day of surgery. Remove ALL jewelry including wedding rings, body piercings (including dermal piercings ,hair extensions that contain metal, nail andorran, make-up, and contact lens. You may brush your teeth the morning of surgery, but do not swallow the water. Wear your dentures and partial plates to the hospital (no adhesive). Shower the night the before. If applicable, use the CHG (chlorhexidine gluconate) soap or wipes What should I bring to the hospital? If you received a green plastic bracelet, bring it with you the day of surgery and your nurse will put it on you. Eyeglass or contact lens case If you will be spending the night, please bring personal care items and leave them in the car until you are taken to your room after surgery. Leave ALL valuables at home. If any of these instructions conflict with those you received from the surgeon, please seek clarification from your surgeon's office. DEEP BREATHING EXERCISES This exercise helps promote good air exchange and helps to prevent pneumonia after surgery. Breathe in slowly and deeply through the nose. Hold your breath for a few seconds and then exhale slowly through the mouth. Repeat this three times and then cough.Coughing helps to clear your lungs. If you have had a surgery with an incision into your abdomen or chest, press gently against your incision with a pillow or a folded blanket when you cough. Please be aware - it may not be magana to cough following some types of surgeries involving the eyes, ears, sinuses and throat. Always follow your doctor's instructions. LEG EXERCISE These exercises help promote good circulation and help to prevent blood clots after surgery. Point your toes to the ceiling and then point them to the wall. Do this slowly about 15-20 times. You may also move your feet in circles. Do the exercise that is most comfortable for you. If you have had surgery involving your shoulder or arm, we recommend you move your fingers. PRACTICING We ask that you begin practicing these exercises before your surgery. After surgery try to do both exercises at least every 2 hours during the day and early evening. SURGICAL SITE INFECTION PREVENTION What is a Surgical Site Infection? Infection can happen to the area of the body where surgery is done. This is called a surgical site infection (SSI). A SSI does not happen very often. Can SSIs be treated? Antibiotics are used to treat SSI. Some patients may need another surgery to treat the infection. The doctor will discuss treatment options with you. What are some of the things that hospitals are doing to prevent SSIs? Soap and water or alcohol hand rub are used before and after caring for each patient. Special soap is used to clean surgery workers hands and arms just before the surgery. Masks, gowns, gloves and hair covers are worn during the surgery to keep the area clean. Hair in the surgery area may be removed with clippers (not razors). A special soap that kills germs is used to clean the skin at the surgery site. Antibiotics may be given before the surgery starts. What can you do to prevent SSIs? Before surgery: You may be asked to shower or bathe with a special soap that kills germs the night before and the day of surgery. Use the soap as you were told. If you smoke, stop or cut down. Ask your doctor about ways to quit. Do not shave near where you will have surgery. Shaving can irritate the skin and make it easier to get and infection. After surgery: Be sure that the doctors and nurses clean their hands before and after touching you. Be sure your family and friends clean their hands before and after visiting you. Do not be afraid to remind them. * Care for your wound at home as told by your doctor or nurse * Call your doctor right away if you have fever, redness, increased pain, or drainage at the surgery site. Further questions? Contact the doctor, nurse or the Infection Prevention and Control department if you have any questions. PATIENT RIGHTS AND RESPONSIBILITIES As a patient at [facility], you have the right to: Receive medical care and be informed of who is taking care of you Be treated with dignity and respect Have a family member/chemical sales representative of choice and your physician notified of your admission Receive information and actively participate in decisions about your care and treatment Refuse care, treatment and services Decide who may provide your support and speak for you Access shinto and spiritual services Participate in ethical issues and questions about your care Receive private and confidential care Have appropriate assessment and management of your pain Know guest visitation restrictions or limitations Have an advance directive Access protective services Consent or refuse to participate in research studies or production or recordings, films or other images Have resolution of your complaints Receive information of hospital charges and payment methods Patient/patient chemical sales representative responsibilities are to: Provide information about health status to facilitate care, treatment and services Follow the treatment, plan, keep appointments and speak up when you do not understand the plan Respect the rights of other patients and healthcare personnel Follow organizational rules and regulations that support quality care and a safe environment Fulfill financial obligations as promptly as possible documented in this encounter [facility] 2024 Miscellaneous Notes Order for oxygen therapy faxed to [facility]. documented in this encounter [facility] 2024 Telephone encounter Note Order for oxygen therapy faxed to [facility]. [facility] 11-03-2024 Miscellaneous Notes Patient was in office for appointment and requested samples of Breztri. paTIENT WAS GIVEN TWO SAMPLES OF bREZTRI lOT [id number] EXP 11/2026. documented in this encounter [facility] 11-03-2024 Telephone encounter Note Patient was in office for appointment and requested samples of Breztri. paTIENT WAS GIVEN TWO SAMPLES OF bREZTRI lOT [id number] EXP 11/2026. [facility] 11-03-2024 Miscellaneous Notes Patient in office for an appointment today, patient stated that she had a PET done recently at [facility].. [employer] Developer called [facility] Radiology and spoke with Whitney, leonor Olson patient had a recent Chest CT but last PET CT was from 02/15/2024. [employer] requested that Whitney fax our office the report and push images through [employer] PACS. Whitney verbalized understanding and stated that she was sending them right over. documented in this encounter [employer] 11-03-2024 Telephone encounter Note Patient in office for an appointment today, patient stated that she had a PET done recently at [facility].. [employer] Developer called [facility] Radiology and spoke with Whitney, per Whitney patient had a recent Chest CT but last PET CT was from 02/15/2024. [employer] requested that Whitney fax our office the report and push images through [employer] PACS. Whitney verbalized understanding and stated that she was sending them right over. [employer] 11-03-2024 History of Presen t illness Narrative [facility] Pulmonary And Sleep Progress Note Patient - Jazzmine Patel Age - 74 y.o. 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 Reviewed imaging with CTA chest from ER visit 10/21/24. Will plan on repeat bronchoscopy with BAL and inspection of LLL.. Will request permission to hold Eliquis. Continue Doxycycline thrice weekly Continue Breztri and aerosols. Continue Flutter valve Remaisn on prednisone 5mg daily Continue hypertonic saline aerosol daily. Patient reports positive benefit to use All questions answered. RTC in 8 weeks or earlier pending above. SUBJECTIVE Ms. Patel presents for follow-up of her history of lung cancer, nocturnal hypoxia and COPD. Her sister is present with her today. She also is an alpha-1 mutation carrier and has an asymptomatic pulmonary AVM. In September earlier in the month she had called with cough, congestion, feeling of unwellness. She was treated with Omnicef, Z-Dillon, prednisone taper but continued to have shortness of breath with worsening left-sided pleuritic chest pain and back pain. She presented to [facility] and had CT angiogram which was negative for acute PE but did demonstrate a lingular consolidation. She subsequently was admitted and treated with IV antibiotics. She was afebrile but did have AFib RVR while she was in the emergency department. She was treated with IV Rocephin and doxycycline with aerosol treatments and IV steroids. WBC on arrival was normal. She remained afebrile during admission and sputum sample was nonpurulent. She states left pain at a mushy feeling in her chest was resolved but started to come back last evening. She is completing abx today. No new fever or chills. She is still bringing up mucus on a daily basis but not like prior. No hemotpysis. No new wheezing or dyspnea. VITALS BP 117/58 Pulse 92 Ht 170.2 cm (5' 7 ) Wt 57.1 kg (125 lb 12.8 oz) LMP (LMP Unknown) SpO2 97% BMI 19.70 kg/m Exam General: Alert, oriented, no acute distress, nontoxic, chronic ill HEENT: Moist mucosal membranes, no oral lesions or oral thrush, trachea midline Chest: Clear to auscultation. No crackle or wheeze. Normal AP diameter. CV: Regular rate regular rhythm Extremities: No edema, erythema, distal cyanosis, clubbing Integumentary: Warm and dry. No rash or lesion Neuro: No lateralizing deficits. No tremors Meds Medications Reviewed. Radiology CTA CHEST 10/21/24 HISTORY: Left chest pain. COMPARISON: Chest CT 04/25/2024 TECHNIQUE: 100 mL of Omnipaque 350 nonionic contrast injected intravenously without reported complication. Thin section axial images of the thorax obtained with multiplanar reformatted 3-D MIP images of the thorax. Automated exposure control was utilized. FINDINGS: Normal caliber of the thoracic aorta with severe atherosclerotic disease. Pulmonary artery is normal in caliber without definitive embolic filling defects to the subsegmental level. Heart size is within normal lives. No pericardial effusion. Moderate to severe coronary artery calcifications. No significant mediastinal lymph node enlargement. Small left pleural effusion with consolidative changes involving the lingula. Severe centrilobular emphysema with apical predominance. No pneumothorax. Occlusion of the central lingular airways. Multifocal occlusions involving right lower lobe airways also noted. No chest wall lymphadenopathy. Left shoulder prosthesis. Calcifications are noted within both renal sylwia, vascular versus nephrolithiasis. No acute osseous abnormality. Significant degenerative changes involving the visible cervical spine. IMPRESSION: * No acute pulmonary embolism. * Consolidative changes in the lingula may represent pneumonia and/or postobstructive atelectasis. * Small left pleural effusion. * Additional incidental/chronic findings as described. Dr. Eileen Fonseca DO. [facility] Office: [phone] documented in this encounter [facility] 10-09-2024 Note Entered by MATILDA BROCK DO on October 09, 2024 20:04:27 EST From: MIGUEL BROCK DO To: [facility]/pharmacy #[id number] Sent: 10/09/2024 20:04:27 EST Subject: Medication Management Approved !-[facility] Request. (BD JANUSZ 2 GEN PEN NDL 32G 4MM) TO USE FOR DAILY ADMINISTRATION OF INSULIN MEDICATION. Qty: 100 unknown unit Days Supply: 90 Refills: 2 Substitutions Allowed Route To Pharmacy - [facility]/pharmacy #[id number] From: [id number] To: MIGUEL BROCK DO Sent: October 09, 2024 2:48:38 PM HEAD CONTROL CLERK Subject: Medication Management Due: October 10, 2024 12:05:40 AM HEAD CONTROL CLERK On Hold Pending Signature Dispensed Drug: BD JANUSZ 2 GEN PEN NDL 32G 4MM, TO USE FOR DAILY ADMINISTRATION OF INSULIN MEDICATION. Quantity: 100 unknown unit Days Supply: 90 Refills: 2 Substitutions Allowed Notes from Pharmacy: [facility] 09-27-2024 Miscellaneous Notes Contract: [address] Fonseca for Critical Lab Numeric page called Phone # not working Called Dr Fonseca cell and Connected Lab documented in this encounter [facility] 09-27-2024 Telephone encounter Note Contract: [address] Fonseca for Critical Lab [facility] 09-27-2024 Telephone encounter Note Numeric page called Phone # not working Called Dr Fonseca cell and Connected Lab [facility] 09-27-2024 Miscellaneous Notes ----- Message from Dr. Eileen Fonseca DO sent at 09/27/2024 2:27 PM EST ----- Please inform looks like LLL pneumonia. I sent z pack, cefdinir - she is to take both of these antibiotics starting today. I also sent prednisone taper and placed order for repeat CXR in 4 weeks [employer] Reports Developer called patient and informed her of the [...] verbalized understanding, and stated that she would warehouse order picker medications today and start them. documented in this encounter [facility] 09-27-2024 Telephone encounter Note ----- Message from Dr. Eileen Fonseca DO sent at 09/27/2024 2:27 PM EST ----- Please inform looks like LLL pneumonia. I sent z pack, cefdinir - she is to take both of these antibiotics starting today. I also sent prednisone taper and placed order for repeat CXR in 4 weeks [employer] [facility] 09-27-2024 Telephone encounter Note [employer] Developer called patient and informed her of the [...] verbalized understanding, and stated that she would warehouse order picker medications today and start them. [facility] Miscellaneous Notes Patient's sister/HIPAA called the [...] she was unsure who she should call (customer relations assistant, oncologist, her PCP). CXR today - 2 view. Needs D dimer, BMP and CBC please. DX: chest pain [employer] Developer attempted to contact patient. No answer. Left message for patient to contact office. Left office phone number for reference. Per Dr Fonseca, patient to complete CXR today - 2 view. Needs D dimer, BMP and CBC. Order placed. Cecilia - please f/u with patient. Thanks [employer] Developer called patient's sister/HIPJAREK, Eunice, informed Eunice that: Per Dr Fonseca, patient to complete CXR today - 2 view. Needs D dimer, BMP and CBC. Order placed. Eunice verbalized understanding and stated that she will take patient to have imaging and labs completed today. [facility] this [facility] Telephone encounter Note Patient's sister/BUTCH called [...] she was unsure who she should call (customer relations assistant, oncologist, her PCP). [facility] 09-26-2024 Telephone encounter Note CXR today - 2 view. Needs D dimer, BMP and CBC please. DX: chest pain [facility] Telephone encounter Note [employer] Developer attempted to contact patient. No answer. Left message for patient to contact office. Left office phone number for reference. Per Dr Fonseca, patient to complete CXR today - 2 view. Needs D dimer, BMP and CBC. Order placed. Cecilia - please f/u with patient. Thanks [facility] 09-26-2024 Telephone encounter Note [employer] Developer called patient's sister/HIPAA, Eunice, informed Eunice that: Per Dr Fonseca, patient to complete CXR today - 2 view. Needs D dimer, BMP and CBC. Order placed. Eunice verbalized understanding and stated that she will take patient to have imaging and labs completed today. [facility] 09-15-2024 Note Entered by MATILDA BROCK DO on September 15, 2024 12:57:20 EST From: MIGUEL BROCK DO To: [facility]/pharmacy #[id number] Sent: 09/15/2024 12:57:20 EST Subject: Medication Management Approved Order:levothyroxine (levothyroxine 125 mcg (0.125 mg) oral tablet) TAKE 1 TABLET BY MOUTH EVERY DAY Qty: 90 tab(s) Days Supply: 90 Refills: 1 Substitutions Allowed Route To Pharmacy - [id number] Note from Pharmacy: REQUEST FOR 90 DAYS PRESCRIPTION. Signed by MIGUEL BROCK DO Cancelled: Discontinue:levothyroxine (levothyroxine 125 mcg (0.125 mg) oral tablet) Signed by MIGUEL BROCK DO From: [id number] To: MIGUEL BROCK DO Sent: September 15, 2024 11:31:38 AM HEAD CONTROL CLERK Subject: Medication Management Due: September 16, 2024 11:31:38 AM HEAD CONTROL CLERK Originally Prescribed Drug: Drug: levothyroxine (levothyroxine 125 [...] from Pharmacy: REQUEST FOR [address] [facility] 07-28-2024 History of Presen t illness Narrative [facility] Progress Note Patient - Jazzmine Patel Age - 73 y.o. - 1950 [facility] # - [id number] ASSESSMENT Stage I left lingular adenocarcinoma s/p [...] Rx has already been sent to the [facility] and awaiting delivery Continue Breztri with spacer [...] received equipment and due to need for [id number] apparently in additional documentation from the DME. [...] with patient history. Dr. Eileen Fonseca DO. [facility] Office: [phone] documented in this encounter [facility] 06-16-2024 Evaluation + Plan note Associated Problem(s): Cigarette smoker Counseled her for smoking cessation for at least 3 minutes [facility] 06-16-2024 Evaluation + Plan note Associated Problem(s): Bilateral carotid artery stenosis She has mild and moderate carotid stenosis. I recommended antiplatelet therapy statin therapy and surveillance imaging annually.I recommended smoking cessation. [facility] 06-16-2024 Evaluation + Plan note Associated Problem(s): PVD (peripheral vascular disease) (CMS-HCC) Smoking cessation aspirin and statin. Walking and exercise. [facility] 06-16-2024 Miscellaneous Notes Associated Problem(s): Cigarette smoker Counseled her for smoking cessation for at least 3 minutes Associated Problem(s): Bilateral carotid artery stenosis She has mild and moderate carotid stenosis. I recommended antiplatelet therapy statin therapy and surveillance imaging annually.I recommended smoking cessation. Associated Problem(s): PVD (peripheral vascular disease) (CMS-HCC) Smoking cessation aspirin and statin. Walking and exercise. Associated Problem(s): Severe claudication (CMS-HCC) This does not seem to be vasculogenic. She has back pain. I suspect neurogenic claudication. Will send her to spine for evaluation and management of neurogenic claudication [facility]-16-20[facility] Evaluation + Plan note Associated Problem(s): Severe claudication (CMS-HCC) This does not seem to be vasculogenic. She has back pain. I suspect neurogenic claudication. Will send her to spine for evaluation and management of neurogenic claudication [facility] 06-16-2024 History of Presen t illness Narrative Images from the original note were not included. To: MIGUEL BROCK, DO HPI: Jazzmine Patel is a 73 y.o. female with History of aortobifem bypass and severe claudication. She has a normal PVR DHEERAJ. I do believe that this is probably neurogenic. It certainly not vasculogenic. She also have carotid stenosis bilaterally. She has a remote history of stroke. Carotid duplex ultrasound shows mild to moderate stenosis. No severe stenosis. She is not on aspirin or statin. She continues to smoke. I counseled the smoking cessation at length.. Review of Systems: Review of Systems Constitutional: Negative. HENT: Negative. Respiratory: Negative. Cardiovascular: Negative. Gastrointestinal: Negative. Endocrine: Negative. Genitourinary: Negative. Musculoskeletal: Negative. Skin: Negative. Neurological: Negative. Hematological: Negative. Medications: Current Outpatient Medications on File Prior to Visit Medication Sig Dispense Refill albuterol (PROVENTIL HFA;VENTOLIN HFA) 90 mcg/actuation inhaler Inhale 2 puffs every 4 (four) hours as needed for wheezing. 6.7 g 11 BD JANUSZ 2ND GEN PEN NEEDLE 32 gauge x needle USE DIRECTED WITH LANTUS DAILY awwqrjfxxd-yfeixidn-atxqwkamfm (BREZTRI AEROSPHERE) 160-9-4.8 mcg/actuation HFA aerosol inhaler Inhale 2 puffs in the morning and at bedtime. dilTIAZem CD (CARDIZEM CD) 180 mg 24 hr capsule Take 1 capsule (180 mg total) by mouth in the morning. 30 capsule 0 doxycycline (VIBRAMYCIN) 100 mg capsule Take 1 capsule (100 mg total) by mouth 3 (three) times a week for 90 days. 36 capsule 3 ELIQUIS 5 mg tablet TAKE 1 TABLET BY MOUTH TWICE DAILY (Patient taking differently: Take 1 tablet (5 mg total) by mouth in the morning and 1 tablet (5 mg total) before bedtime.) 60 tablet 10 ezetimibe (ZETIA) 10 mg tablet Take 1 tablet (10 mg total) by mouth in the morning. guaiFENesin (MUCINEX) 600 mg tablet extended release 12hr Take 2 tablets (1,200 mg total) by mouth every 12 (twelve) hours. 120 tablet 6 insulin glargine (LANTUS SOLOSTAR U-100 INSULIN) 100 unit/mL (3 mL) insulin pen Inject 100 Units under the skin in the morning. insulin glargine (LANTUS) 100 unit/mL injection Inject 0.16 mL (16 Units total) under the skin Daily at 0700. isosorbide mononitrate (IMDUR) 30 mg 24 hr tablet Take 1 tablet (30 mg total) by mouth daily. levothyroxine (SYNTHROID) 125 MCG tablet Take 1 tablet (125 mcg total) by mouth in the morning. 30 tablet 1 ONETOUCH ULTRA TEST strip USE TO TEST 2 TIMES DAILY OYSTER SHELL CALCIUM-VIT D3 500 mg-5 mcg (200 unit) per tablet TAKE 2 TABLETS BY MOUTH THREE TIMES DAILY WITH MEALS (Patient taking differently: Take 2 tablets by mouth in the morning.) 540 tablet 1 pen needle, diabetic 32 gauge x 5/32 needle 32 g by abdominal subcutaneous route in the morning. rosuvastatin (CRESTOR) 40 mg tablet TAKE 1 TABLET BY MOUTH EVERY DAY (Patient taking differently: Take 1 tablet (40 mg total) by mouth in the morning.) 30 tablet 2 sodium chloride 3 % nebulizer solution Inhale by nebulization daily. 120 mL 12 aspirin 81 mg Take 1 tablet (81 mg total) by mouth daily. (Patient not taking: Reported on 05/26/2024) 60 tablet 1 colloidal oatmeaL (AVEENO SOOTHING BATH) packet Apply 1 application topically daily. (Patient not taking: Reported on 05/05/2024) 8 packet 0 mupirocin (BACTROBAN) 2 % ointment Applied intranasally bilaterally 2 times daily (Patient not taking: Reported on 05/05/2024) 15 g 0 Current Facility-Administered Medications on File Prior to Visit Medication Dose Route Frequency Provider Last Rate Last Admin sodium chloride 0.9 % flush 10 mL 10 mL intravenous PRN Kathy Bueno MD 10 mL at 02/12/24 1109 Past Medical History: Past Medical History: Diagnosis Date Abdominal bruit Asthma Atrial fibrillation ([facility]) Cancer ([facility]) lung cancer, last radiation treatment 04/22/24 Chest pain COPD (chronic obstructive pulmonary disease) ([facility]) Dizziness DM type 2 (diabetes mellitus, type 2) ([facility]) DVT (deep venous thrombosis) ([facility]) Heart disease Hyperlipidemia OA (osteoarthritis) Palpitations Renal insufficiency Stroke (cerebrum) ([facility]) 2020 APROXIMATELY 3-4 MONTHS Visual impairment Past Surgical History: Past Surgical History: Procedure Laterality Date ARTHROPLASTY TOTAL SHOULDER Left 09/13/2018 Performed by Hero Jean-Baptiste MD at [facility] BRONCHOSCOPY ALVEOLAR LAVAGE N/A 01/26/2024 Performed by Eileen Fonseca DO at [facility] CARDIAC SURGERY 2020 APROXIMATELY Diagnostic cerebral angiogram N/A 02/16/2021 Performed by Riley Su MD at [facility] CARDIAC CATH LABS EGD Left Lateral 01/13/2018 Performed by Eber Santana DO at [facility] ENDOBRONCHIAL ULTRASOUND BRONCHOSCOPY N/A 03/01/2024 Performed by Eileen Fonseca DO at [facility] HYSTERECTOMY PHACO KELMAN I IMPLANT INTRAOCULAR LENS Left 09/02/2018 Performed by Syl Ma MD at [facility] ROTATOR CUFF REPAIR THYROIDECTOMY Frozen Section Bilateral 08/09/2020 Performed by Stanley Dooley MD PhD at [facility] VASCULAR SURGERY Social and Family History: Social History Socioeconomic History Marital status: Spouse name: Not on file Number of children: Not on file Years of education: Not on file Highest education level: Not on file Occupational History Not on file Tobacco Use Smoking status: Some Days Current packs/day: 0.25 Average packs/day: 0.3 packs/day for 20.0 years (5.0 ttl pk-yrs) Types: Cigarettes Smokeless tobacco: Never Tobacco comments: Every now and then will have a cigarrette Vaping Use Vaping status: Never Used Substance and Sexual Activity Alcohol use: Not Currently Comment: rare Drug use: No Sexual activity: Defer Other Topics Concern Caffeine Use Yes Social History Narrative Not on file Social Determinants of Health Financial Resource Strain: Low Risk (02/14/2021) Overall Financial Resource Strain (CARDIA) Difficulty of Paying Living Expenses: Not hard at all Food Insecurity: No Food Insecurity (06/16/2024) Hunger Screening Food Insecurity - Worry: Never True Food Insecurity - Inability: Never True Transportation Needs: No Transportation Needs (04/26/2024) PRAPARE - Transportation Lack of Transportation (Medical): No Lack of Transportation (Non-Medical): No Physical Activity: Inactive (02/14/2021) Exercise Vital Sign Days of Exercise per Week: 0 days Minutes of Exercise per Session: 0 min Stress: No Stress Concern Present (02/14/2021) [employer]ational [employer] - Occupational Stress Questionnaire Feeling of Stress : Not at all Social Connections: Unknown (02/14/2021) Social Connection and Isolation Panel [NHANES] Frequency of Communication with Friends and Family: Twice a week Frequency of Social Gatherings with Friends and Family: Twice a week Attends [employer] Services: More than 4 times per year Active Member of Clubs or Organizations: No Attends Club or Organization Meetings: Not on file Marital Status: Not on file Interpersonal Safety: Not At Risk (04/26/2024) Humiliation, Afraid, Rape, and Kick questionnaire Fear of Current or Ex-Partner: No Emotionally Abused: No Physically Abused: No Sexually Abused: No Housing Instability: Low Risk (04/26/2024) Housing Instability Housing Instability: No Family History Problem Relation Age of Onset Brain cancer Mother Cancer Mother Lung cancer Father Cancer Father Heart disease Father Recent Labs: Recent and relative labs were reviewed and interpreted and contributed to the assessment and plan below. Vitals: BP 118/78 (BP Site: Right Arm, BP Postition: Sitting, BP CUFF SIZE: M (9-13 inches)) Pulse (!) 43 Ht 170.2 cm (5' 7 ) Wt 54 kg (119 lb) LMP (LMP Unknown) SpO2 100% BMI 18.64 kg/m Body mass index is 18.64 kg/m . Physical Exam: Physical Exam Constitutional: Appearance: Normal appearance. HENT: Head: Normocephalic and atraumatic. Mouth/Throat: Mouth: Mucous membranes are moist. Eyes: Extraocular Movements: Extraocular movements intact. Pupils: Pupils are equal, round, and reactive to light. Cardiovascular: Rate and Rhythm: Normal rate and regular rhythm. Pulmonary: Effort: Pulmonary effort is normal. Breath sounds: Normal breath sounds. Abdominal: General: Abdomen is flat. Bowel sounds are normal. Palpations: Abdomen is soft. Musculoskeletal: General: Normal range of motion. Cervical back: Normal range of motion. Skin: General: Skin is warm and dry. Neurological: General: No focal deficit present. Mental Status: She is alert and oriented to person, place, and time. Mental status is at baseline. Psychiatric: Mood and Affect: Mood normal. Behavior: Behavior normal. Thought Content: Thought content normal. Judgment: Judgment normal. Recent testing: Carotid duplex ultrasound and DHEERAJ with PVR Assessment and Plan: Problem List PVD (peripheral vascular disease) ([facility]) - Primary (Chronic) Overview Major surgery bifemoral surgery at [facility]--I don't know exactly what was done. 05/13 Current Assessment & Plan Smoking cessation aspirin and statin. Walking and exercise. Severe claudication ([facility]) Current Assessment & Plan This does not seem to be vasculogenic. She has back pain. I suspect neurogenic claudication. Will send her to spine for evaluation and management of neurogenic claudication Bilateral carotid artery stenosis Current Assessment & Plan She has mild and moderate carotid stenosis. I recommended antiplatelet therapy statin therapy and surveillance imaging annually.I recommended smoking cessation. Cigarette smoker Current Assessment & Plan Counseled her for smoking cessation for at least 3 minutes Jazzmine was seen today for severe claudication and leg pain. Diagnoses and all orders for this visit: PVD (peripheral vascular disease) ([facility]) Severe claudication ([facility]) Bilateral carotid artery stenosis Cigarette smoker Cruz Roche MD, MAYE, RPVI, FSVS, FACS [facility] This note was created with the assistance of a speech recognition program. While intending to generate a timely document that accurately reflects the content of the visit, no guarantee can be provided that every grammatical or spelling mistake has been or will be identified or corrected. Thank you for your understanding. documented in this encounter [facility] 06-16-2024 Instructions Cruz Roche MD - 06/16/2024 8:50 AM EDT Are You Ready To Kick The Habit? Free Tobacco Cessation Resources [facility] Services [facility] Centers provide all employees with free tobacco cessation services that include: Counseling to understand nicotine addiction Education about medications that can help you successfully quit Assistance with developing a plan to quit Call to set up an individual appointment or find out when group classes will be held: [facility]: [phone] [facility]: [phone] [facility]: [phone] [facility]: [phone] Quit Smoking Action Plan and Resources [facility] offers an eight-week, online smoking cessation plan to all [facility] employees, regardless of whether [place] is your medical insurance provider. Go to [email or web address].[email or web address]/employeewell ness and click the Health Risk Assessment and Resources link to get started. In the Planitax menu, click Action Plans instead of Health Risk Assessment to access the Quit Smoking Action Plan. Additional smoking cessation resources are also available to all [facility] employees on the [employer] web page at www.Expandly/quit smoking. [place] Tobacco Cessation Program If [place] is your medical insurance provider, there are more free resources available to you, including: No copays or deductibles on local tobacco cessation counseling services to help you quit Prescription assistance for tobacco cessation medications to help you quit For details about the tobacco cessation program available to [place] members, go to www.[employer] (Search: Tobacco Cessation Program). [place] Tobacco Quit Line 5-483-BFYH-NOW ( ) is a toll-free, telephonic service that helps [place] residents quit smoking and using tobacco. It is staffed by experts who tailor a quit plan for you and provide you with advice. [place] Tobacco Quit Line 0-013-MRWR-NOW ( ) is a toll-free, telephonic service that helps [place] residents quit smoking and using tobacco. It is staffed by experts who tailor a quit plan for you and provide you with advice. Two weeks of nicotine replacement therapy may be provided at no charge, if needed. Additional Resources These national organizations also offer free information and resources to help you quit tobacco: [employer]--www.cancer.org/healthy/ stayawayfromtobacco [employer]--www.heart.org (Search: Quit Smoking) Centers for Disease Control and Prevention--www.cdc.gov/tobacco [employer]--www.lungusa.org documented in this encounter [facility] 05-26-2024 Evaluation + Plan note Associated Problem(s): Bilateral carotid bruits Continue aspirin, statin Crestor and carotid duplex ultrasound [facility] 05-26-2024 Evaluation + Plan note Associated Problem(s): Severe claudication (CMS-HCC) PVR Crestor, aspirin and walking [facility] 05-26-2024 Miscellaneous Notes Associated Problem(s): Bilateral carotid bruits Continue aspirin, statin Crestor and carotid duplex ultrasound Associated Problem(s): Severe claudication (CMS-HCC) PVR Crestor, aspirin and walking documented in this encounter [facility] 05-26-2024 History of Presen t illness Narrative Images from the original note were not included. To: MIGUEL BROCK, DO HPI: Jazzmine Patel is a 73 y.o. female with Longstanding smoking history. She has [place] occlusive disease status post aortobifemoral bypass. She had a recent CAT scan that I personally reviewed and interpreted in the bypass is patent. She is severe claudication however she does not have any PVR. She also had a stroke and she had carotid bruit with no recent ultrasound. She has no lateralizing signs at this time. She has been on aspirin and Crestor. She is also on Eliquis for A-fib.. Review of Systems: Review of Systems Constitutional: Negative. HENT: Negative. Respiratory: Negative. Cardiovascular: Negative. Gastrointestinal: Negative. Endocrine: Negative. Genitourinary: Negative. Musculoskeletal: Negative. Skin: Negative. Neurological: Negative. Hematological: Negative. Medications: Current Outpatient Medications on File Prior to Visit Medication Sig Dispense Refill albuterol (PROVENTIL HFA;VENTOLIN HFA) 90 mcg/actuation inhaler Inhale 2 puffs every 4 (four) hours as needed for wheezing. 6.7 g 11 BD JANUSZ 2ND GEN PEN NEEDLE 32 gauge x 5/32 needle USE DIRECTED WITH LANTUS DAILY cjcmltdtxf-msticcjh-zxsyfivilb (BREZTRI AEROSPHERE) 160-9-4.8 mcg/actuation HFA aerosol inhaler Inhale 2 puffs in the morning and at bedtime. dilTIAZem CD (CARDIZEM CD) 180 mg 24 hr capsule Take 1 capsule (180 mg total) by mouth in the morning. 30 capsule 0 doxycycline (VIBRAMYCIN) 100 mg capsule Take 1 capsule (100 mg total) by mouth 3 (three) times a week for 90 days. 36 capsule 3 ELIQUIS 5 mg tablet TAKE 1 TABLET BY MOUTH TWICE DAILY (Patient taking differently: Take 1 tablet (5 mg total) by mouth in the morning and 1 tablet (5 mg total) before bedtime.) 60 tablet 10 ezetimibe (ZETIA) 10 mg tablet Take 1 tablet (10 mg total) by mouth in the morning. guaiFENesin (MUCINEX) 600 mg tablet extended release 12hr Take 2 tablets (1,200 mg total) by mouth every 12 (twelve) hours. 120 tablet 6 insulin glargine (LANTUS SOLOSTAR U-100 INSULIN) 100 unit/mL (3 mL) insulin pen Inject 100 Units under the skin in the morning. insulin glargine (LANTUS) 100 unit/mL injection Inject 0.16 mL (16 Units total) under the skin Daily at 0700. pen needle, diabetic 32 gauge x 5/32 needle 32 g by abdominal subcutaneous route in the morning. rosuvastatin (CRESTOR) 40 mg tablet TAKE 1 TABLET BY MOUTH EVERY DAY (Patient taking differently: Take 1 tablet (40 mg total) by mouth in the morning.) 30 tablet 2 sodium chloride 3 % nebulizer solution Inhale by nebulization daily. 120 mL 12 sucralfate (CARAFATE) 100 mg/mL suspension Take 10 mL (1,000 mg total) by mouth in the morning and 10 mL (1,000 mg total) at noon and 10 mL (1,000 mg total) in the evening and 10 mL (1,000 mg total) before bedtime. Do all this for 30 days. 1200 mL 0 aspirin 81 mg Take 1 tablet (81 mg total) by mouth daily. (Patient not taking: Reported on 05/26/2024) 60 tablet 1 colloidal oatmeaL (AVEENO SOOTHING BATH) packet Apply 1 application topically daily. (Patient not taking: Reported on 05/05/2024) 8 packet 0 isosorbide mononitrate (IMDUR) 30 mg 24 hr tablet Take 1 tablet (30 mg total) by mouth daily. levothyroxine (SYNTHROID) 125 MCG tablet Take 1 tablet (125 mcg total) by mouth in the morning. 30 tablet 1 mupirocin (BACTROBAN) 2 % ointment Applied intranasally bilaterally 2 times daily (Patient not taking: Reported on 05/05/2024) 15 g 0 ONETOUCH ULTRA TEST strip USE TO TEST 2 TIMES DAILY OYSTER SHELL CALCIUM-VIT D3 500 mg-5 mcg (200 unit) per tablet TAKE 2 TABLETS BY MOUTH THREE TIMES DAILY WITH MEALS (Patient taking differently: Take 2 tablets by mouth in the morning.) 540 tablet 1 pantoprazole (PROTONIX) 40 mg EC tablet Take 1 tablet (40 mg total) by mouth every morning before breakfast for 30 days. (Patient not taking: Reported on 05/05/2024) 30 tablet 0 Current Facility-Administered Medications on File Prior to Visit Medication Dose Route Frequency Provider Last Rate Last Admin sodium chloride 0.9 % flush 10 mL 10 mL intravenous PRN Kathy Bueno MD 10 mL at 02/12/24 1109 Past Medical History: Past Medical History: Diagnosis Date Abdominal bruit Asthma Atrial fibrillation (CMS-HCC) Cancer (CMS-HCC) lung cancer, last radiation treatment 04/22/24 Chest pain COPD (chronic obstructive pulmonary disease) ([facility]) Dizziness DM type 2 (diabetes mellitus, type 2) ([facility]) DVT (deep venous thrombosis) ([facility]) Heart disease Hyperlipidemia OA (osteoarthritis) Palpitations Renal insufficiency Stroke (cerebrum) ([facility]) 2020 APROXIMATELY 3-4 MONTHS Visual impairment Past Surgical History: Past Surgical History: Procedure Laterality Date ARTHROPLASTY TOTAL SHOULDER Left 09/13/2018 Performed by Hero Jean-Baptiste MD at [facility] BRONCHOSCOPY ALVEOLAR LAVAGE N/A 01/26/2024 Performed by Eileen Fonseca DO at [facility] CARDIAC SURGERY 2020 APROXIMATELY Diagnostic cerebral angiogram N/A 02/16/2021 Performed by Riley Su MD at [facility] CARDIAC CATH LABS EGD Left Lateral 01/13/2018 Performed by Eber Santana DO at [facility] ENDOBRONCHIAL ULTRASOUND BRONCHOSCOPY N/A 03/01/2024 Performed by Eileen Fonseca DO at [facility] HYSTERECTOMY PHACO KELMAN I IMPLANT INTRAOCULAR LENS Left 09/02/2018 Performed by Syl Ma MD at [facility] ROTATOR CUFF REPAIR THYROIDECTOMY Frozen Section Bilateral 08/09/2020 Performed by Stanley Dooley MD PhD at [facility] VASCULAR SURGERY Social and Family History: Social History Socioeconomic History Marital status: Spouse name: Not on file Number of children: Not on file Years of education: Not on file Highest education level: Not on file Occupational History Not on file Tobacco Use Smoking status: Some Days Current packs/day: 0.25 Average packs/day: 0.3 packs/day for 20.0 years (5.0 ttl pk-yrs) Types: Cigarettes Smokeless tobacco: Never Tobacco comments: Every now and then will have a cigarrette Vaping Use Vaping status: Never Used Substance and Sexual Activity Alcohol use: Not Currently Comment: rare Drug use: No Sexual activity: Defer Other Topics Concern Caffeine Use Yes Social History Narrative Not on file Social Determinants of Health Financial Resource Strain: Low Risk (02/14/2021) Overall Financial Resource Strain (CARDIA) Difficulty of Paying Living Expenses: Not hard at all Food Insecurity: No Food Insecurity (05/26/2024) Hunger Screening Food Insecurity - Worry: Never True Food Insecurity - Inability: Never True Transportation Needs: No Transportation Needs (04/26/2024) PRAPARE - Transportation Lack of Transportation (Medical): No Lack of Transportation (Non-Medical): No Physical Activity: Inactive (02/14/2021) Exercise Vital Sign Days of Exercise per Week: 0 days Minutes of Exercise per Session: 0 min Stress: No Stress Concern Present (02/14/2021) [employer] - Occupational Stress Questionnaire Feeling of Stress : Not at all Social Connections: Unknown (02/14/2021) Social Connection and Isolation Panel [NHANES] Frequency of Communication with Friends and Family: Twice a week Frequency of Social Gatherings with Friends and Family: Twice a week Attends [employer] Services: More than 4 times per year Active Member of Clubs or Organizations: No Attends Club or Organization Meetings: Not on file Marital Status: Not on file Interpersonal Safety: Not At Risk (04/26/2024) Humiliation, Afraid, Rape, and Kick questionnaire Fear of Current or Ex-Partner: No Emotionally Abused: No Physically Abused: No Sexually Abused: No Housing Instability: Low Risk (04/26/2024) Housing Instability Housing Instability: No Family History Problem Relation Age of Onset Brain cancer Mother Cancer Mother Lung cancer Father Cancer Father Heart disease Father Recent Labs: Recent and relative labs were reviewed and interpreted and contributed to the assessment and plan below. Vitals: BP 100/60 (BP Site: Left Arm, BP Postition: Sitting, BP CUFF SIZE: M (9-13 inches)) Pulse 85 Ht 170.2 cm (5' 7 ) Wt 54.1 kg (119 lb 3.2 oz) LMP (LMP Unknown) SpO2 99% BMI 18.67 kg/m Body mass index is 18.67 kg/m . Physical Exam: Physical Exam Constitutional: Appearance: Normal appearance. HENT: Head: Normocephalic and atraumatic. Mouth/Throat: Mouth: Mucous membranes are moist. Eyes: Extraocular Movements: Extraocular movements intact. Pupils: Pupils are equal, round, and reactive to light. Cardiovascular: Rate and Rhythm: Normal rate and regular rhythm. Pulmonary: Effort: Pulmonary effort is normal. Breath sounds: Normal breath sounds. Abdominal: General: Abdomen is flat. Bowel sounds are normal. Palpations: Abdomen is soft. Musculoskeletal: General: Normal range of motion. Cervical back: Normal range of motion. Skin: General: Skin is warm and dry. Neurological: General: No focal deficit present. Mental Status: She is alert and oriented to person, place, and time. Mental status is at baseline. Psychiatric: Mood and Affect: Mood normal. Behavior: Behavior normal. Thought Content: Thought content normal. Judgment: Judgment normal. Recent testing: CT of the chest abdomen pelvis Assessment and Plan: Problem List PVD (peripheral vascular disease) ([facility]) (Chronic) Overview Major surgery bifemoral surgery at [facility]--I don't know exactly what was done. 05/13 Relevant Orders Vas art doppler lwr bilat mult lev/PVR Severe claudication (CMS-HCC) - Primary Current Assessment & Plan PVR Crestor, aspirin and walking Relevant Orders Vas art doppler lwr bilat mult lev/PVR Bilateral carotid bruits Current Assessment & Plan Continue aspirin, statin Crestor and carotid duplex ultrasound Relevant Orders Vas carotid duplex bilateral Jazzmine was seen today for pvd (peripheral vascular disease) records sent images reque. Diagnoses and all orders for this visit: Severe claudication ([facility]) - Vas art doppler lwr bilat mult lev/PVR; Future PVD (peripheral vascular disease) ([facility]) - [facility] - Chaz PA - Vas art doppler lwr bilat mult lev/PVR; Future Bilateral carotid bruits - Vas carotid duplex bilateral; Future Cruz Roche MD, MAYE, RPVI, FSVS, FACS [facility] This note was created with the assistance of a speech recognition program. While intending to generate a timely document that accurately reflects the content of the visit, no guarantee can be provided that every grammatical or spelling mistake has been or will be identified or corrected. Thank you for your understanding. documented in this encounter [facility] 05-25-2024 Miscellaneous Notes Called patient to remind of 05/26/24 appointment no answer and vm is full documented in this encounter [facility] 05-25-2024 Telephone encounter Note Called patient to remind of 05/26/24 appointment no answer and vm is full [facility] 05-23-2024 History of Presen t illness Narrative Duplicate meds documented in this encounter [facility] 05-05-2024 History of Presen t illness Narrative [facility] Progress Note Patient - Jazzmine Patel Age - 73 y.o. - 1950 ASSESSMENT Newly diagnosed Stage I left lingular adenocarcinoma -PET/CT with no evidence of lymph node or metastatic involvement. 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 Treated with antibiotics and symptomatically improved with rebound of symptoms. Repeat bronchoscopy in February with rare Streptococcus pneumonia. She was treated with course of Levaquin for which this was sensitive to AFB and fungal cultures have been negative x2 CT imaging reviewed. She does have evidence of mild bronchiectasis likely from her COPD, chronic bronchitis Discussed focus on mucus clearance. Regimen written out for her and her sister today and express detail. This was reviewed and they demonstrate understanding. All questions answered. Advised if they have any concerns in the future with any adjustments of her respiratory protocol to please contact our office Continue 3% saline aerosols 1 time daily. Albuterol aerosols b.i.d. or t.i.d. if needed. Use with flutter device. Will provide flutter valve. Continue Breztri BID with spacer. Additional samples given in office today. Mucinex 1200mg BID Resume thrice weekly antibiotic for chronic bronchitis. Will use Doxycycline 100mg. Age-appropriate routine vaccination Encouraged daily exercise, chair yoga Handicap placard provided today Will obtain home oxygen evaluation. Repeat PFT data is anticipated in the next 1-2 months. Return to clinic in 3 months or earlier if needed. They will call if any issues prior SUBJECTIVE Mrs. Allen presents for follow-up of her lingular adenocarcinoma, postobstructive pneumonia in the lingula and COPD. She has been following with both medical oncology as well as Radiation Oncology at [place]. Her biggest complaint has been chronic cough with mucus production. This is not new for her but certainly has worsened in the last year. The purulent changes of the sputum has improved. She is now bringing up mostly clear mucus during the day and she has not having the coughing bouts the way that she was before. She did have recent hospitalization for chest pain observation earlier in April prior to April 28. She reports that there was some adjustments to her respiratory regimen. Both her and her sister are somewhat confused as to what she was to be doing as there was some discrepancies both what she has been advised here verses what they recommended on discharge. Sister reports that she is fairly sedentary. Does not get out of the house very often. Continues to smoke. No episodes of hemoptysis. Chest pain has resolved. No fevers, chills, hemoptysis. They report that she has been referred to dermatology for the changes on her face VITALS Pulse 113 Ht 170.2 cm (5' 7 ) Wt 54.6 kg (120 lb 4.8 oz) LMP (LMP Unknown) SpO2 97% BMI 18.84 kg/m Exam General: Alert, oriented, no acute distress, nontoxic, thin HEENT: Moist mucosal membranes, no oral lesions or oral thrush, trachea midline Chest: Clear to auscultation bilaterally without any crackles, wheezes, rhonchi. Normal AP diameter. Mild kyphosis CV: Regular rate regular rhythm Extremities: No edema, erythema, distal cyanosis, clubbing Integumentary: Warm and dry. Skin lesions to bilateral cheeks Neuro: No lateralizing deficits. No tremors Meds Medications Reviewed. Radiology STUDY: CT angiography of the chest with contrast 04/25/24 CLINICAL HISTORY: Chest pain, shortness of breath. [...] with patient history. Dr. Eileen Fonseca DO. [facility] Office: [phone] documented in this encounter [facility] 05-05-2024 Instructions Eileen Fonseca DO - 05/05/2024 12:30 PM EDT In AM Take mucinex Take albuterol nebulizer treatment then, Take 3% saline nebulizer treatment with Flutter Valve Take Breztri with spacer Mid-Day Take albuterol aerosols with Flutter valve In PM Take albuterol aerosol with Flutter valve then, Breztri 2 puffs with spacer Take Mucinex Every Thursday, Thursday and Thursday take Doxycycline capsule with food in stomach. Do not lay down after taking. Be careful in the sun. 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 documented in this encounter [facility] 05-05-2024 Telephone encounter Note Attempted to contact patient regarding missed OCEANOGRAPHY TEACHER appt and phone went straight to [facility] with mailbox full. [facility] 04-18-2024 Note XR CHEST 1 VW Procedure: Chest x-ray performed Number of views:AP portable History:Shortness of breath and cough Comparison:02/01/2024 Findings: The heart and lungs show no acute findings, and the mediastinum and sylwia are grossly negative . There is a left shoulder replacement Impression: No acute change. Finalized by Sanaz Burns DO on 04/18/2024 1:42 PM [facility] 03-23-2024 Miscellaneous Notes Est patient returned office call patient was transferred to [facility] office to speak with SS documented in this encounter [facility] 03-23-2024 Telephone encounter Note Est patient returned office call patient was transferred to [facility] office to speak with SS [facility] 03-14-2024 Miscellaneous Notes Patient called and stated that her oncologist in [place] is recommending that orders nebulized Hypertonic Saline (3%), please review and advise. Patient was informed is out of town and that is covering for SE. Patient is requesting that is a prescription is sent to her pharmacy to send it to [facility] in [place]. Typically I don't start that if patient is in an exacerbation (prior visit patient was noted to be in an exacerbation) will defer to Dr. Fonseca when she returns if she feels this is reasonable for this patient. [employer] Reports Developer contacted patient and informed her that KW reviewed request but that KW would like SE to review when she returns to the office next Thursday, patient verbalized understanding. Please move up appt for after her PFT at end of March. I will hold off on 3% saline at this time. Did she get flutter valve? Can I get update on her symptoms? [employer] Reports Developer spoke with patient and informed her that per SE wanted to move appointment up to after her PFT is completed, moved patient's appointment up to 05/05/2024 at 12:30pm. Patient stated that she does not have a flutter device and her symptoms are the same as before, she stated that she does not feel much has changed. documented in this encounter [facility] 03-14-2024 Telephone encounter Note Patient called and stated that her oncologist in [place] is recommending that SE orders nebulized Hypertonic Saline (3%), please review and advise. Patient was informed is out of town and that is covering for SE. Patient is requesting that is a prescription is sent to her pharmacy to send it to [facility] in [place]. [facility] 03-14-2024 Telephone encounter Note Typically I don't start that if patient is in an exacerbation (prior visit patient was noted to be in an exacerbation) will defer to Dr. Fonseca when she returns if she feels this is reasonable for this patient. [facility] Work Phone: 03-14-2024 Telephone encounter Note [employer] Reports Developer contacted patient and informed her that KW reviewed request but that KW would like SE to review when she returns to the office next Thursday, patient verbalized understanding. [facility] 03-14-2024 Telephone encounter Note Please move up appt for after her PFT at end of March. I will hold off on 3% saline at this time. Did she get flutter valve? Can I get update on her symptoms? [facility] 03-14-2024 Telephone encounter Note Oracle Reports Developer spoke with patient and informed her that per SE wanted to move appointment up to after her PFT is completed, moved patient's appointment up to 05/05/2024 at 12:30pm. Patient stated that she does not have a flutter device and her symptoms are the same as before, she stated that she does not feel much has changed. [facility] 03-14-2024 Note Entered by MATILDA BROCK DO on March 14, 2024 07:37:29 EDT From: MIGUEL BROCK DO To: [facility]/pharmacy #[id number] Sent: 03/14/2024 07:37:29 EDT Subject: Medication Management Documented Complete:fluticasone nasal (fluticasone 50 mcg/inh nasal spray) Signed by MIGUEL BROCK DO 03/14/2024 07:37:00 EDT Approved fluticasone nasal (FLUTICASONE PROP 50 MCG SPRAY) SPRAY 1 SPRAY INTO EACH NOSTRIL EVERY DAY Qty: 32 mL Days Supply: 120 Refills: 4 Substitutions Allowed Route To Pharmacy - [facility]/pharmacy #[id number] Patient matched by MIGUEL BROCK DO on 03/14/2024 07:37:12 EDT From: [id number] To: MIGUEL BROCK DO Sent: March 12, 2024 6:55:34 AM CDT Subject: Medication Management Due: March 13, 2024 12:03:07 AM CDT On Hold Pending Signature Dispensed Drug: fluticasone nasal (fluticasone 50 mcg/inh nasal spray), SPRAY 1 SPRAY INTO EACH NOSTRIL EVERY DAY Quantity: 32 mL Days Supply: 120 Refills: 4 Substitutions Allowed Notes from Pharmacy: [facility] 03-04-2024 Miscellaneous Notes DOS: 09/13/18 - post reverse total shoulder arthroplasty Was advised by PCP to call the surgeon who did this as patient states that she has Pain and tingling. POA: Sister: Eunice [phone] Returned her call. For the last month, patient has been experiencing pain in her operative shoulder. She had thought she slept wrong on it but the pain persists, and her sister notes that when patient is wearing a tank top it looks like she has a hard bulge under her armpit. Her motion is decreased to a point where she can only lift her arm straight out in front of her. She has to use her other arm to raise it further. She also states her sister has tingling that starts in her posterior neck and radiates down into fingers. She recently moved back to the area as patient found out she has inoperable lung cancer. Patient's memory isn't very good, so it is unknown if she ever had the MR of her cervical neck or any appointments with PMR or other specialist of that nature (no results or appt notes in [facility]). Advised first to obtain xray of shoulder. Due to patient's condition recommended outpatient xray at [place] and we can review once available, likely beginning of next week. She is agreeable to this. documented in this encounter [facility] 03-04-2024 Telephone encounter Note DOS: 09/13/18 - post reverse total shoulder arthroplasty Was advised by PCP to call the surgeon who did this as patient states that she has Pain and tingling. POA: Sister: Eunice [phone] [facility] 03-04-2024 Telephone encounter Note Returned her call. For the last month, patient has been experiencing pain in her operative shoulder. She had thought she slept wrong on it but the pain persists, and her sister notes that when patient is wearing a tank top it looks like she has a hard bulge under her armpit. Her motion is decreased to a point where she can only lift her arm straight out in front of her. She has to use her other arm to raise it further. She also states her sister has tingling that starts in her posterior neck and radiates down into fingers. She recently moved back to the area as patient found out she has inoperable lung cancer. Patient's memory isn't very good, so it is unknown if she ever had the MR of her cervical neck or any appointments with PMR or other specialist of that nature (no results or appt notes in [facility]). Advised first to obtain xray of shoulder. Due to patient's condition recommended outpatient xray at [place] and we can review once available, likely beginning of next week. She is agreeable to this. [facility] 03-03-2024 History of Presen t illness Narrative Images from the original note were not included. [facility] Progress Note Patient - Jazzmine Patel Age - 73 y[facility] 1950 [id number] ASSESSMENT Newly diagnosed Stage I left lingular adenocarcinoma -PET/CT with no evidence of lymph node or metastatic involvement. 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 Repeat home O2 evaluation still pending Swallow study pending. Complete course of Levaquin. Add prednisone 20mg daily x 7 days Continue PRN aerosols and albuterol HFA Form for assistance completed. Discussed biopsy and bronchoscopy results. Repeat PFT still pending. RTC in 3 months or earlier if needed. SUBJECTIVE Mrs. Patel VITALS BP 116/51 Pulse 62 Ht 170.2 cm (5' 7 ) Wt 53.3 kg (117 lb 8 oz) LMP (LMP Unknown) SpO2 95% BMI 18.40 kg/m Exam General: Alert, oriented, no acute distress, nontoxic HEENT: Moist mucosal membranes, no oral lesions or oral thrush, trachea midline Chest: Clear to auscultation bilaterally without any crackles, wheezes, rhonchi. Normal AP diameter. CV: Regular rate regular rhythm Abdomen: Soft, nontender, no guard Extremities: No edema, erythema, distal cyanosis, clubbing Integumentary: Warm and dry. No rash or lesion Neuro: No lateralizing deficits. No tremors Meds Medications Reviewed. Lab Results PFT Results Radiology Dr. Eileen Fonseca DO. [facility] Office: [phone] documented in this encounter [facility] 02-02-2024 History of Presen t illness Narrative Attempted to reach patient x 2 on phone number provided with no answer. CHUN box is full. I also attempted to reach her sister, Charla, who is on HIPAA. No answer either. Continue with Doxycycline as prescribed. Will need to add omnicef BID x 10 days as well. Pathology from biopsy of endobronchial lesion is positive for adenocarcinoma. Will need PET/CT scan done and referral to oncology and radiation oncology in [place]. documented in this encounter [facility] 01-11-2024 Note Entered by MATILDA BROCK DO on January 11, 2024 07:47:51 EDT From: MIGUEL BROCK DO To: [id number] Sent: 01/11/2024 07:47:51 EDT Subject: Medication Management Approved Durable Medical Equipment for Prescription (ONE TOUCH ULTRA BLUE TEST STRP) TEST TWICE DAILY Qty: 100 Strip Days Supply: 30 Refills: 4 Substitutions Allowed Route To Pharmacy - [id number] From: [id number] To: MIGUEL BROCK DO Sent: January 10, 2024 11:22:06 PM CDT Subject: Medication Management Due: January 11, 2024 12:31:07 AM CDT On Hold Pending Signature Dispensed Drug: ONE TOUCH ULTRA BLUE TEST STRP, TEST TWICE DAILY Quantity: 100 Strip Days Supply: 30 Refills: 4 Substitutions Allowed Notes from Pharmacy: [facility] 01-07-2024 History of Presen t illness Narrative SENT CARDIAC CLEARANCE LETTER TO DR Servando ELLIS FOR UPCOMING BRONCHOSCOPY WITH BAL UNDER GENERAL ANESTHESIA documented in this encounter [facility] [facility] 01-07-2024 History of Presen t illness Narrative Images from the original note were not included. [facility] Progress Note Patient - Jazzmine Patel Age - 73 y.[facility]. - 1950 [id number] ASSESSMENT 1. Moderately severe COPD with emphysema [...] nodules. * Emphysema. Dr. Eileen Fonseca DO. [facility] Office: [phone] documented [facility] this [facility] Miscellaneous Notes PATIENT RETURNED CALL. NOT SURE WHO CALLED PATIENT. PLEASE CALL HER BACK AT [phone] documented in this encounter [facility] 12-31-2023 Telephone encounter Note PATIENT RETURNED CALL. NOT SURE WHO CALLED PATIENT. PLEASE CALL HER BACK AT [phone] [facility] 12-31-2023 Miscellaneous Notes She has abnormal imaging from 12/03 and has been scheduled and not shown it looks like twice? Can we reach out to her and see if she can come in and notify PCP of imaging and efforts please just so he is up to date? Thank you documented in this encounter [facility] 12-31-2023 Telephone encounter Note She has abnormal imaging from 12/03 and has been scheduled and not shown it looks like twice? Can we reach out to her and see if she can come in and notify PCP of imaging and efforts please just so he is up to date? Thank you [facility] 12-07-2023 Miscellaneous Notes ----- Message from Eileen Fonseca DO sent at 12/07/2023 10:35 AM EST ----- Can she come in on at 3:45? [employer] spoke with patient and informed her that SE would like to see her on 12/24/2023 at 3:45pm if patient is available. Patient stated that she is able to come into the office on 12/24/2023 at 3:45pm. Appointment moved to 12/24/2023. documented in this encounter [facility] 12-07-2023 Telephone encounter Note ----- Message from Eileen Fonseca DO sent at 12/07/2023 10:35 AM EST ----- Can she come in on at 3:45? [facility] 12-07-2023 Telephone encounter Note [employer] spoke with patient and informed her that SE would like to see her on 12/24/2023 at 3:45pm if patient is available. Patient stated that she is able to come into the office on 12/24/2023 at 3:45pm. Appointment moved to 12/24/2023. [facility] 10-21-2023 Miscellaneous Notes Pt called again [...] up. Pt agreeable. documented in this encounter [facility] 10-21-2023 Telephone encounter Note Pt called again on SE nurse line stating she needs a return phone call JAMEEL. Returned pt's call and informed her once SE is back and reviews everything/ lets us know where we can add her, we will call her. Pt is aware + agreeable. [facility] 10-21-2023 Telephone encounter Note Pt returned call. Pt agreeable to schedule CT chest - number to central scheduling provided. Advised pt once CT is scheduled to call office for follow up. Pt agreeable. [facility] 02-13-2021 Hospital Discharg e Riley Hurst APRN [...] - 02/13/2021 7:50 AM EDT Follow-up in [place] office in 7 to 10 days for cath site evaluation and continued monitoring. The following attachments cannot be sent through Care Everywhere.PCI (Percutaneous Coronary Intervention): Post-op (Malawian)PCI (Percutaneous Coronary Intervention): General Info (Malawian)atorvastatin (Malawian)clopidogrel (Malawian)documented in this encounter [facility] [employer] [facility] Phone: 02-12-2021 History of Presen t illness Narrative Patient admitted to room 1011 from PACU. VS taken, telemetry placed and call light given/within reach. Patient A&O and given room orientation. Orders released/reviewed, initial assessment completed and navigator started. See chart for more detail. 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 [facility] Work Phone: Evaluation note* Diagnosis Severe claudication ([facility])- Primary PVD (peripheral vascular disease) ([facility]) Unspecified peripheral vascular disease Bilateral carotid bruits PVD (peripheral vascular disease) ([facility])- Primary Unspecified peripheral vascular disease Severe claudication ([facility]) Bilateral carotid artery stenosis Occlusion and stenosis of carotid artery without mention of cerebral infarction Cigarette smoker Tobacco use disorder Bronchiectasis without complication ([facility]) [facility] this [facility] Diagnosis Severe claudication ([facility])- Primary PVD (peripheral vascular disease) ([facility]) Unspecified peripheral vascular disease Bilateral carotid bruits PVD (peripheral vascular disease) ([facility])- Primary Unspecified peripheral vascular disease Severe claudication ([facility]) Bilateral carotid artery stenosis Occlusion and stenosis of carotid artery without mention of cerebral infarction Cigarette smoker Tobacco use disorder Moderate COPD (chronic obstructive pulmonary disease) ([facility])- Primary Bronchiectasis without complication ([facility]) Primary lung adenocarcinoma, left ([facility]) Shortness of breath 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 Pulmonary infiltrate present on computed tomography Bronchiectasis without complication ([facility]) Pulmonary infiltrate present on computed tomography [facility] Diagnosis Severe claudication ([facility])- Primary PVD (peripheral vascular disease) ([facility]) Unspecified peripheral vascular disease Bilateral carotid bruits PVD (peripheral vascular disease) ([facility])- Primary Unspecified peripheral vascular disease Severe claudication ([facility]) Bilateral carotid artery stenosis Occlusion and stenosis of carotid artery without mention of cerebral infarction Cigarette smoker Tobacco use disorder Bronchiectasis without complication ([facility]) [facility] Diagnosis Moderate COPD (chronic obstructive pulmonary disease) ([facility] Primary [facility] Diagnosis Moderate COPD (chronic obstructive pulmonary disease) ([facility])- Primary Tobacco abuse Tobacco use disorder Ullyy-5-sbqmfxyuyli deficiency carrier Pulmonary nodule Other diseases of lung, not elsewhere classified [facility] Diagnosis S/P reverse total shoulder arthroplasty, left- Primary Left shoulder pain, unspecified chronicity [facility] Diagnosis Tobacco abuse- Primary Tobacco use disorder Nwjvq-8-uttdlclrxtr deficiency carrier Moderate COPD (chronic obstructive pulmonary disease) ([facility]) Pulmonary arteriovenous malformation Pulmonary nodule Other diseases of lung, not elsewhere classified Bronchiectasis without complication ([facility]) [facility] Diagnosis Moderate COPD (chronic obstructive pulmonary disease) ([facility])- Primary Pulmonary nodule Other diseases of lung, not elsewhere classified Mdfsx-9-qobsyockutf deficiency ([facility]) Ybtro-7-tahrdzllhyx deficiency Dyspnea on exertion Other dyspnea and respiratory abnormality Abnormal CT of the chest Nonspecific (abnormal) findings on radiological and other examination of other intrathoracic organs Tobacco abuse Tobacco use disorder [facility] Diagnosis Severe claudication ([facility])- Primary PVD (peripheral vascular disease) ([facility]) Unspecified peripheral vascular disease Bilateral carotid bruits [facility] Diagnosis Non-small cell cancer of left lung ([facility])- Primary [facility] Diagnosis PVD (peripheral vascular disease) ([facility])- Primary Unspecified peripheral vascular disease Severe claudication ([facility]) Bilateral carotid artery stenosis Occlusion and stenosis of carotid artery without mention of cerebral infarction Cigarette smoker Tobacco use disorder [facility] Diagnosis Moderate COPD (chronic obstructive pulmonary disease) ([facility])- Primary Tobacco abuse Tobacco use disorder Jrqde-6-makpaxziaew deficiency carrier Primary lung adenocarcinoma, left ([facility]) [facility]* Diagnosis Severe claudication ([facility])- Primary PVD (peripheral vascular disease) ([facility]) Unspecified peripheral vascular disease Bilateral carotid bruits PVD (peripheral vascular disease) ([facility])- Primary Unspecified peripheral vascular disease Severe claudication ([facility]) Bilateral carotid artery stenosis Occlusion and stenosis of carotid artery without mention of cerebral infarction Cigarette smoker Tobacco use disorder Chest pain, unspecified type- Primary [facility]* Diagnosis Severe claudication ([facility])- Primary PVD (peripheral vascular disease) ([facility]) Unspecified peripheral vascular disease Bilateral carotid bruits PVD (peripheral vascular disease) ([facility])- Primary Unspecified peripheral vascular disease Severe claudication ([facility]) Bilateral carotid artery stenosis Occlusion and stenosis of carotid artery without mention of cerebral infarction Cigarette smoker Tobacco use disorder Pneumonia of left lower lobe due to infectious organism- Primary [facility] Diagnosis Severe claudication ([facility])- Primary PVD (peripheral vascular disease) ([facility]) Unspecified peripheral vascular disease Bilateral carotid bruits PVD (peripheral vascular disease) ([facility])- Primary Unspecified peripheral vascular disease Severe claudication ([facility]) Bilateral carotid artery stenosis Occlusion and stenosis of carotid artery without mention of cerebral infarction Cigarette smoker Tobacco use disorder Moderate COPD (chronic obstructive pulmonary disease) ([facility])- Primary Gpspf-2-qliblldwnqp deficiency carrier documented [facility] this encounter [facility] Diagnosis Onset Date Resolution Status Admit Date Bronchiolo-alveolar adenocarcinoma of left lung acute [place] h 2024 10:50am [facility] Work Phone: InstructionsNot on filedocumented in this encounter [facility]ructionsNot on filedocumented in this encounter [facility]ructionsNot on filedocumented in this encounter [facility] [...] [facility] Author Urszula Etienne [facility] March 15, 2024 11:42am Note Date/Time March 15, 2024 9:58a m [facility] [place] [address] Cancer Center Note Signed Patient: Jazzmine Patel MR#: [id number] : 1950 Acct:[id number] Age/Sex: 73 / F Type: DEP AMB [...] today having undergone a screening EBUS in [place] on March 01, 2024. A single abnormal [...] to clinic today having undergone EBUS in [place]. EBUS was completedon March 01, 2024 copious [...] a 3 week follow up visit before [facility] Medical History Medical History Bronchiolo-alveolar adenocarcinoma [...] signed by Urszula Etienne MD> 03/15/24 1142 [facility] Work Phone: Progress note Author Urszula Etienne [facility] Note Date/Time January 10, 2025 11: 31[facility] [place] [address] Cancer Center Note Signed Patient: Jazzmine Patel MR#: [id number] : 1950 Acct:[id number] Age/Sex: 74 / F Type: REG AMB Date of Service: 01/10/25 Copies to: MD Miguel Estrada DO Shanna Elston DO~ Assessment & Plan (1) Bronchiolo-alveolar adenocarcinoma of left lung: Plan: Return to clinic with OCEANOGRAPHY TEACHER April [address] Obtain records from Dr. 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 Patient not a surgical candidate due to her severe obstructive pulmonary disease. May 03, 2024 patient completed hypofractionated radiation to the left lung 60 Silverio in 15 fractions. Her pulmonary status remains poor due to the ongoing smoking and end-stage COPD. Continue lidocaine patches for the left chest wallpain -likely radiation-induced pleural scarring. I reviewed her chest CT scans in detail and compared to her prior CT in September. Consolidation in the left lung remains consistent with the radiation field. We will plan on seeing her back in April 2025 with her next chest CT- OCEANOGRAPHY TEACHER visit. History of Present Illness HPI 74-year-old female with past medical history notable for [...] and invasive adenocarcinoma cannot be ruled out. February 19, 2024 left lower lobe opacity [...] I do not see a DLCO. Patient smoked 5 packs/day in the past and continues to smoke occasionally. Today she is accompanied by her sister. She has a chronic smoker's cough. Her brain MRI was done yesterday. Patient is concerned because her mother and brother had brain cancer . She also has peripheral vascular disease and has undergone bypass bilateral lower extremities. She also reports an aortic aneurysm. She also has injury to the left shoulder requiring pascual placement which limits her range of motion. Patient also reports left-sided flank pain consistent with the area of tumor. May 03, 2024 patient completed hypofractionated radiation to the left lung 60 Silverio in 15 fractions. Patient tolerated the radiation treatment well however had worsening dyspnea on exertion as well as shortness of breath and cough. Shecontinued to struggle with mucous plugging throughout the treatment course. Patient was seen in her local ED on multiple occasions due to chest pain as wellas shortness of breath. I started her on 60 mg of prednisone to assist her in completing the treatment course. She missed 4 days of treatment the first week of April due to admission outside facility where she was treated with Protonix for esophagitis-her radiation field did not involve the esophagus. Ultimately she was able to complete her treatment course. She was given a prednisone taperat her end of treatment. Surveillance chest CT from June 23, 2024 from [place]. Exam shows persistentsoft tissue opacity within the posterior aspect of the lingula extending from near the hilum to the lateral chest wall 4.3 cm in size. Emphysematous changes throughout the lungs. Sep [address] [facility] at [facility] -Presumed posttreatment changes are seen involving the lingula. Finding is similar to the prior study. New noncalcifiedpulmonary nodule involving the left lower lobe measuring 6 mm series 4 image 41. December [address] shows persistent obstructive lung disease with bilateral scarring. Pulmonary nodularity similar to prior. Today patient continues on her portable oxygen. She reports a recent flu. She was given cough medicine from Dr. Wolf which she feels is helping. She statesshe occasionally has a cigarette but is otherwise doing well with smoking cessation. Patient reports a recent bronchoscopy with Dr. Hill in [facility] she continues to have mucous plugging and infection. [facility] path was sent off to [facility]. Intake Intake Visit Reasons: Follow Up, Review CT Allergies bactrim Adverse Reaction (Uncoded 03/15/24 10:04) Difficulty Breathing [facility] Medical History Medical History Bronchiolo-alveolar adenocarcinoma of left lung Atrial fibrillation Diabetes COPD (chronic obstructive pulmonary disease) Surgical History Surgical History H/O repair of rotator cuff History of hysterectomy H/O shoulder replacement Family History Family History Father Myocardial infarction Lung cancer Brother Lung cancer Mother Brain cancer Social History Social History (Updated 05/17/24 @ 09:31 by Leeanna Parsons [facility]) Smoking status: Current every day smoker Within the past year, how often did you have a drink containing alcohol: never AUDIT-C Alcohol total score: 0 AUDIT-C Alcohol score interpretation: A score less than 3 is consistent with normal alcohol consumption. Physical Exam EXAM Physical Exam: KPS 80 General: alert thin female in no acute distress HEENT: Normocephalic extraocular movements intact Lungs coarse breath sounds and wheezes bilaterally. Localizes pain to the left ribs with deep inspiration. Tenderness to palpation along the left ribs extending to the axilla. Unchanged. Abdomen: non acute MSK: Normal limits. Neuro: grossly intact Results - [facility] (Rad Onc) LAB RESULTS No Data to Display Dictated By: Urszula Etienne MD DD/ [id number] Signed By: <Electronically signed by Urszula Eteinne MD> 01/10/25 1131 [facility] Work Phone: Reason for referral (narrative)* Consultation (Routine) - Pending Review Specialty Diagnoses / Procedures Referred By Fior goyal Referred To Contact Oncology Diagnoses Non-small cell cancer of left lung (CMS-HCC) Eileen Fonseca, DO [address] [address] [facility] [address] [place] [id number] Referral ID Status Reason Start Date Expiration Date Visits Requested Visits Authorized [id number] Pending Review Specialty Services Required 02/02/2024 02/01/2025 1 1 * Consultation (Routine) - Pending Review Specialty Diagnoses / Procedures Referred By Contbelen t Referred To Contact Radiation Oncology Diagnoses Non-small cell cancer of left lung (CMS-HCC) Eileen Fonseca, DO [address] [address] [facility] [address] [place] [address] Referral ID Status Reason Start Date Expiration Date Visits Requested Visits Authorized [id number] Pending Review Specialty Services Required 02/02/2024 02/01/2025 1 1 * Diagnostic Imaging (Routine) - Pending Review Specialty Diagnoses / Procedures Referred By Contac t Referred To Contact Radiology Diagnoses Non-small cell cancer of left lung ([facility]) Procedures PET CT skull to thigh RaymundoEileen, DO [address] [address] Referral ID Status Reason Start Date Expiration Date V isits Requested Visits Authorized [id number] Pending Review 02/02/2024 02/01/2025 1 1 [email or web address] Reason for Referral Status Reason Specialty Diagnoses / Procedures Referred By Contact Referred To Contact Open Specialty Services Required Cardiac Rehabilitation Diagnoses [place] [address] Scheduling Instructions S/p stents Specialty Diagnoses / Procedures Referred By Contac t Referred To Contact Diagnoses Moderate COPD (chronic obstructive pulmonary disease) ([facility]) Bronchiectasis without complication ([facility]) Procedures Disability/Handicap Placard Eileen Fonseca, DO [address] [address] Referral ID Status Reason Start Date Expiration Date V isits Requested Visits Authorized [id number] Pending Review 05/05/2024 05/05/2025 1 1 Specialty Diagnoses / Procedures Referred By Contac t Referred To Contact Diagnoses Moderate COPD (chronic obstructive pulmonary disease) ([facility]) Procedures Home O2 eval (desaturation screen) Eileen Fonseca, DO [address] [address] Referral ID Status Reason Start Date Expiration Date V isits Requested Visits Authorized [id number] Pending Review 05/05/2024 05/05/2025 1 1 Specialty Diagnoses / Procedures Referred By Contac t Referred To Contact Diagnoses Dyspnea on exertion Procedures Home O2 eval (desaturation screen) Eileen Fonseca, DO [address] [address] Referral ID Status Reason Start Date Expiration Date V isits Requested Visits Authorized [id number] Pending Review 01/07/2024 01/06/2025 1 1 Specialty Diagnoses / Procedures Referred By Contac t Referred To Contact Diagnoses PVD (peripheral vascular disease) ([facility] Severe claudication ([facility]) Procedures Vas art doppler lwr bilat mult lev/PVR Cruz Roche MD [address], [address] [address] Referral ID Status Reason Start Date Expiration Date V isits Requested Visits Authorized [id number] Pending Review 05/26/2024 05/26/2025 1 1 Specialty Diagnoses / Procedures Referred By Contac t Referred To Contact Diagnoses Bilateral carotid bruits Procedures Vas carotid duplex bilateral Cruz Roche MD [address], [address] [address] Referral ID Status Reason Start Date Expiration Date V isits Requested Visits Authorized [id number] Pending Review 05/26/2024 05/26/2025 1 1 Specialty Diagnoses / Procedures Referred By Contac t Referred To Contact Diagnoses Bilateral carotid artery stenosis Procedures Vas carotid duplex bilateral Cruz Roche MD [address], [address] [address] Referral ID Status Reason Start Date Expiration Date V isits Requested Visits Authorized [id number] Pending Review 06/16/2024 06/16/2025 1 1 Specialty Diagnoses / Procedures Referred By Contac t Referred To Contact Spine Care Diagnoses Severe claudication ([facility]) Cruz Roche MD [address], [address] [address] [facility] [address] [facility] [address] [place] [address] Referral ID Status Reason Start Date Expiration Date V isits Requested Visits Authorized [id number] Pending Review 06/16/2024 06/16/2025 1 1 Advance Directives No Advanced Directives Records FoundDocuments on File Type Date Recorded Patient Linoleum Printer Expl anation Durable Power of Automotive Lube Technician Latest Code Status on File Code Status Date Activated Date Inactivated Comments Full Code 08/09/2020 3:44 PM 08/10/2020 7:03 PM Code Status History Code Status Date Activated Date Inactivated Comments Full Code 09/12/2018 5:17 AM 09/16/2018 7:33 PM Documents on File Type Date Recorded Patient Linoleum Printer Expl anation ACP-Advance Directive ACP-Power of Automotive Lube Technician Latest Code Status on File Code Status Date Activated Date Inactivated Comments Full Code 02/12/2021 7:33 PM Full Code 12/04/2015 10:41 AM 12/04/2015 7:30 PM Advance Directive Response Recorded Date/ Time Advance Directives No March 15 5:26pm Date Activated Date Inactivated Comments 10/21/2024 4:23 PM 10/24/2024 6:15 PM Date Activated Date Inactivated Comments 04/25/2024 11:30 AM 04/27/2024 3:46 PM Date Activated Date Inactivated Comments 08/09/2020 3:44 PM 08/10/2020 7:03 PM Date Activated Date Inactivated Comments 09/12/2018 5:17 AM 09/16/2018 7:33 PM Documents on File Type Date Recorded Patient Linoleum Printer Expl anation Durable Power of Automotive Lube Technician Date Activated Date Inactivated Comments 10/21/2024 4:23 PM 10/24/2024 6:15 PM Date Activated Date Inactivated Comments 04/25/2024 11:30 AM 04/27/2024 3:46 PM Date Activated Date Inactivated Comments 08/09/2020 3:44 PM 08/10/2020 7:03 PM Date Activated Date Inactivated Comments 09/12/2018 5:17 AM 09/16/2018 7:33 PM Date Activated Date Inactivated Comments 08/09/2020 3:44 PM 08/10/2020 7:03 PM Date Activated Date Inactivated Comments 09/12/2018 5:17 AM 09/16/2018 7:33 PM Date Activated Date Inactivated Comments 04/25/2024 11:30 AM 04/27/2024 3:46 PM Date Activated Date Inactivated Comments 08/09/2020 3:44 PM 08/10/2020 7:03 PM Date Activated Date Inactivated Comments 09/12/2018 5:17 AM 09/16/2018 7:33 PM Date Activated Date Inactivated Comments 04/25/2024 11:30 AM 04/27/2024 3:46 PM Date Activated Date Inactivated Comments 08/09/2020 3:44 PM 08/10/2020 7:03 PM Date Activated Date Inactivated Comments 09/12/2018 5:17 AM 09/16/2018 7:33 PM Latest Code Status on File Code Status Date Activated Date Inactivated Comments Full Code 08/09/2020 3:44 PM 08/10/2020 7:03 PM Code Status History Code Status Date Activated Date Inactivated Comments Full Code 09/12/2018 5:17 AM 09/16/2018 7:33 PM Date Activated Date Inactivated Comments 08/09/2020 3:44 PM 08/10/2020 7:03 PM Date Activated Date Inactivated Comments 09/12/2018 5:17 AM 09/16/2018 7:33 PM Summary Purpose Family History No Family History [...] Bronchiolo-alveolar adenocarcinoma of left lung Chief Complaint Admit Date November 25, 2024 3 :50pm Follow Up, Review CT January 10, 2025 10 :50am Lung Cancer January 10, 2025 10: 58am Reason for Visit Admit Date Bronchiolo-alveolar adenocarcinoma of le ft lung January 10, 2025 10:50am Additional Source Comments Reason for Visit (unrecogniz ed section and content) Status Reason Specialty Diagnoses / Procedures Referre d By Contact Referred To Contact Joseline Director Corporate Sales [address] [place] [address] [facility] Reason Comments Med Refill Reason Onset Date Comments Med Refill 11/03/2024 Reason Comments Follow-up CXR: 09/27/2024 & 4CTA: 4PFT: not completed COPD Reason Comments Follow-up Bronch: 03/01/2024E T CT: 4PFT: Ordered, not scheduled COPD Reason Comments Follow-up Rsuio-6-[id number] deficiencyPFT: not completedCTA: 04/25/2024Swallow Study: 04/20/2024 COPD Reason Comments Follow-up Kvevp-5-[id number] deficiencyPulmonary NoduleCT: 12/02/2023Lower Respiratory Culture: 06/12/2023 Reason Comments Med Change Request Reason Comments PVD (peripheral vascular disease) record s sent images reque Specialty Diagnoses / Procedures Referred By Fior t Referred To Contact Vascular Surgery Diagnoses PVD (peripheral vascular disease) ([facility]) Anisha Wolf MD [address] [place] [address] Cruz Roche MD [address], [address] [address] Referral ID Status Reason Start Date Expiration Date Visits Requested Visits Authorized [id number] Pending Review Specialty Services Required 05/04/2024 05/04/2025 1 1 Reason Onset Date Comments appointment reminder 05/25/2024 Called melissa ent to remind her of her appt. On 05/26/24 no answer and VM is full Reason Comments severe claudication 3 week follow up wit h testing completed at [facility] 06/04 per patientart doppler lwr bilat mult lev/pvrcarotid duplex bilaterial Leg Pain Lower back and bilat eral legsAching 5/10 pain levelAching ,pain Reason Comments COPD Home O2 Evaluation: 07/15/2024 Follow-up Reason Onset Date Comments CRITICAL LAB 09/27/2024 Reason Comments Follow-up COPD CXR: 11/03/2024 & 5CT: 10/06/2024 Ordered Prescriptions (unrec ognized section and content) [...] section and content) DATE CREATED AUTHOR 02/15/2021 [facility] DATE CREATED AUTHOR AUTHOR'S ORGANIZ ATION 03/03/2023 [facility] DATE CREATED AUTHOR AUTHOR'S ORGANIZ ATION 11/06/2024 [facility] DATE CREATED AUTHOR AUTHOR'S ORGANIZ ATION 12/18/2024 [facility] DATE CREATED AUTHOR AUTHOR'S ORGANIZ ATION 12/31/2024 [facility] DATE CREATED AUTHOR AUTHOR'S ORGANIZ ATION 01/08/2025 [facility] DATE CREATED AUTHOR AUTHOR'S ORGANIZ ATION 01/12/2025 [facility] Care Teams (unrecognized sec tion and content) Team Status: Active Member Role Status Dates Miguel Brock DO Primary Care Provider Active Team Status: Active Member Role Status Dates Migeul Brock DO Primary Care Provider Active Start: April 19, 2024 Urszula Etienne MD Attending [facility] er, Other Provider Active Start: April 19, 2024 Anisha Wolf MD Referring Provider Active St art: April 19, 2024 Team Status: Active Member Role Status Dates Miguel Brock DO Primary Care Provider Active Start: May 02, 2024 Urszula Etienne MD Attending [facility] er, Other Provider Active Start: May 02, [...] Provider Active St art: July 12, 2024 Team Status: Inactive Member Role Status Dates Urszula Etienne MD Attending Provider Active Start: February 24, 2024 End: February 24, 2024 iMguel Brock DO Primary Care Provider Active Start: [...] Provider Active St art: May 17, 2024 Photographer'S Assistant Relationship Specialty Start Date End Date Miguel Brock DO [address] [place] [address] PCP - General Family Medicine 08/17/24 Photographer'S Assistant Relationship Specialty Start Date End Date Miguel Brock DO [address] [place] [address] PCP - General Family Medicine 08/17/24 Photographer'S Assistant Relationship Specialty Start Date End Date Miguel Brock DO [address] [place] [address] PCP - General Family Medicine 08/17/24 Photographer'S Assistant Relationship Specialty Start Date End Date Miguel Brock DO [address] [place] [address] PCP - General Family Medicine 08/17/24 Photographer'S Assistant Relationship Specialty Start Date End Date Miguel Brock DO [address] [place] [address] PCP - General Family Medicine 08/17/24 Photographer'S Assistant Relationship Specialty Start Date End Date Miguel Brock DO [address] [place] [address] PCP - General Family Medicine 08/17/24 Photographer'S Assistant Relationship Specialty Start Date End Date Miguel Brock DO [address] [place] [address] PCP - General Family Medicine 08/17/24 Photographer'S Assistant Relationship Specialty Start Date End Date Miguel Brock DO [address] [place] [address] PCP - General Family Medicine 08/17/24 Photographer'S Assistant Relationship Specialty Start Date End Date Miguel Brock DO [address] [place] [address] PCP - General Family Medicine 08/17/24 Photographer'S Assistant Relationship Specialty Start Date End Date Miguel Brock DO [address] [place] [address] PCP - General Family Medicine 08/17/24 Photographer'S Assistant Relationship Specialty Start Date End Date Miguel Brock DO [address] [place] [address] PCP - General 10/17/16 Photographer'S Assistant Relationship Specialty Start Date End Date Miguel Brock DO [address] [place] [address] PCP - General Family Medicine 02/01/24 Photographer'S Assistant Relationship Specialty Start Date End Date Miguel Brock DO [address] [place] [address] PCP - General Family Medicine 02/01/24 Photographer'S Assistant Relationship Specialty Start Date End Date Miguel Brock DO [address] [place] [address] PCP - General Family Medicine 02/01/24 Photographer'S Assistant Relationship Specialty Start Date End Date Miguel Brock DO [address] [place] [address] PCP - General Family Medicine 02/01/24 Photographer'S Assistant Relationship Specialty Start Date End Date Miguel Brock DO [address] [place] [address] PCP - General Family Medicine 04/25/24 Photographer'S Assistant Relationship Specialty Start Date End Date Miguel Brock DO [address] [place] [address] PCP - General Family Medicine 04/25/24 Photographer'S Assistant Relationship Specialty Start Date End Date Miguel Brock DO [address] [place] [address] PCP - General 10/17/16 Photographer'S Assistant Relationship Specialty Start Date End Date Miguel Brock DO [address] [place] [address] PCP - General 10/17/16 Photographer'S Assistant Relationship Specialty Start Date End Date Miguel Brock DO [address] [place] [address] PCP - General Family Medicine 04/25/24 Photographer'S Assistant Relationship Specialty Start Date End Date Miguel Brock DO [address] [place] [address] PCP - General Family Medicine 04/25/24 Photographer'S Assistant Relationship Specialty Start Date End Date Miguel Brock DO [address] [place] [address] PCP - General Family Medicine 04/25/24 Photographer'S Assistant Relationship Specialty Start Date End Date Miguel Brock DO [address] [place] [address] PCP - General Family Medicine 04/25/24 Photographer'S Assistant Relationship Specialty Start Date End Date Miguel Brock DO [address] [place] [address] PCP - General Family Medicine 01/25/24 Photographer'S Assistant Relationship Specialty Start Date End Date Miguel Brock DO [address] [place] [address] PCP - General Family Medicine 02/01/24 Photographer'S Assistant Relationship Specialty Start Date End Date Miguel Brock DO [address] [place] [address] PCP - General Family Medicine 04/25/24 Photographer'S Assistant Relationship Specialty Start Date End Date Miguel Brock DO [address] [place] [address] PCP - General Family Medicine 04/25/24 Photographer'S Assistant Relationship Specialty Start Date End Date Miguel Brock DO [address] [place] [address] PCP - General Family Medicine 04/25/24 Photographer'S Assistant Relationship Specialty Start Date End Date Miguel Brock DO [address] [place] [address] PCP - General Family Medicine 04/25/24 Photographer'S Assistant Relationship Specialty Start Date End Date Miguel Brock DO [address] [facility] [place] [address] PCP - General Family Medicine 08/17/24 Photographer'S Assistant Relationship Specialty Start Date End Date Miguel Brock DO [address] [place] [address] PCP - General Family Medicine 08/17/24 Team Status: Active Member Role Status Dates Miguel Brock DO Primary Care Provider Active Start: November 25, 2024 Adán Conner MD Attending Provider Active Start: November 25, 2024 Team Status: Inactive Member Role Status Dates Miguel Brock Primary Care Provider Active Start: January 10, 2025 End: January 10, 2025 Urszula Etienne MD Attending Provider Active Start: January 10, 2025 End: January 10, 2025 Team Status: Active Member Role Status Dates Miguel Brock Primary Care Provider Active Start: January 10, 2025 Urszula Etienne MD Attending Provider Active Start: January 10, 2025 Anisha Wolf MD Referring Provider Active St art: January 10, 2025 Goals (unrecognized section and content) Goals may [...] BE BASED ON THE PRIMARY CLINICAL RECORDS. [employer] [facility]. provides no warranty or guarantee of the accuracy or completeness of information in this document.
== END 2025-01-18 07:56 | disposition home or self-care (01) ==
LOC: HEMC 07:36
PROVIDERS: PCP Family Medicine; Visit Provider Internal Medicine Hematology & Oncology
DX: C34.92 Malignant neoplasm of unspecified part of left bronchus or lung (principal); D51.9 Vitamin B12 deficiency anemia, unspecified; Z90.710 Acquired absence of both cervix and uterus; F17.210 Nicotine dependence, cigarettes, uncomplicated; J43.9 Emphysema, unspecified; R05.3 Chronic cough; R06.02 Shortness of breath
CPT/HCPCS: G0463

== ENCOUNTER 2025-02-21 07:30 | Outpatient (RCR) | payer MEDICARE, SELFPAY ==
[2025-01-26 09:55] VITALS: BP 132/82; PULSE 109; TEMP 36.3; O2SAT 96
[2025-01-26] MEDS: CYANOCOBALAMIN 1,000 MCG/ML VIAL 1000 MCG IM (10:02)
[2025-02-02 09:55] VITALS: BP 133/90; PULSE 116; TEMP 36.4; O2SAT 100
[2025-02-02] MEDS: CYANOCOBALAMIN 1,000 MCG/ML VIAL 1000 MCG IM (10:00)
[2025-02-09 10:00] VITALS: BP 125/61; PULSE 130; TEMP 36.6; O2SAT 95
[2025-02-09] MEDS: CYANOCOBALAMIN 1,000 MCG/ML VIAL 1000 MCG IM (10:02)
[2025-02-16 09:58] VITALS: BP 112/75; PULSE 71; TEMP 36.6; O2SAT 95
[2025-02-16] MEDS: CYANOCOBALAMIN 1,000 MCG/ML VIAL 1000 MCG IM (10:00)
[2025-02-21 09:18] LABS: Basophils Absolute Auto 0.1 10^3/uL (0.0-0.1); Basophils Percent Auto 1.9 % (0.2-2.0); Eosinophils Absolute Auto 0.2 10^3/uL (0.0-0.7); Eosinophils Percent Auto 3.2 % (0.9-7.0); Hematocrit 45.4 % (36.0-48.0); Hemoglobin 15.3 g/dL (12.0-16.0); Immature Granulocytes Abs Auto 0.02 10^3/uL (0.00-0.03); Immature Granulocytes Pct Auto 0.3 % (0.0-0.5); Lymphocytes Absolute Auto 1.1 10^3/uL (1.2-3.8); Lymphocytes Percent Auto 16.5 % (20.5-60.0); Mean Corpuscular HGB Conc 33.7 g/dL (29.9-35.2); Mean Corpuscular Hemoglobin 30.1 pg (26.7-34.0); Mean Corpuscular Volume 89.4 fL (81.0-99.0); Monocytes Absolute Auto 0.4 10^3/uL (0.3-0.8); Monocytes Percent Auto 5.8 % (1.7-12.0); Neutrophils Percent Auto 72.3 % (43.0-75.0); Platelet Count 274 10^3/uL (150-450); Red Blood Count 5.08 10^6/uL (4.20-5.40); Red Cell Distribution Width 13.2 % (11.0-15.0); White Blood Count 6.9 10^3/uL (4.0-11.0)
[2025-02-21 09:44] LABS: Alanine Aminotransferase 14 U/L (14-59); Albumin Globulin Ratio 0.8; Albumin Level 3.2 g/dL (3.4-5.0); Alkaline Phosphatase 80 U/L (46-116); Anion Gap 16.6; Aspartate Amino Transferase 13 U/L (15-37); BUN Creatinine Ratio 10.3; Bilirubin Total 0.4 mg/dL (0.2-1.0); Calcium 7.5 mg/dL (8.5-10.1); Carbon Dioxide 26.7 mmol/L (21.0-32.0); Chloride 100 mmol/L (98-107); Estimated GFR (African America 56 (>=60 mL/min/1.73m^2); Estimated GFR (Non-African Ame 46 (>=60 mL/min/1.73m^2); Glucose 252 mg/dL (74-106); Potassium 3.3 mmol/L (3.5-5.1); Sodium 140 mmol/L (136-145); Total Protein 7.2 g/dL (6.4-8.2)
[2025-02-21 10:23] LABS: Percent Iron Saturation 20.4 %
[2025-02-22 02:07] LABS: Vitamin B12 1237 pg/mL (232-1245)
== END 2025-02-22 23:59 | disposition home or self-care (01) ==
LOC: HEMC 07:30
PROVIDERS: PCP Family Medicine; Visit Provider Internal Medicine Hematology & Oncology
DX: C34.92 Malignant neoplasm of unspecified part of left bronchus or lung (principal); D51.9 Vitamin B12 deficiency anemia, unspecified; J43.9 Emphysema, unspecified; Z90.710 Acquired absence of both cervix and uterus; Z87.891 Personal history of nicotine dependence; R05.3 Chronic cough; R06.02 Shortness of breath
CPT/HCPCS: 36415; 80053; 82306; 82607; 82728; 83540; 83550; 85025; 96372; G0463; J3420

== ENCOUNTER 2025-03-17 07:39 | Outpatient (RCR) | payer MEDICARE, SELFPAY ==
[2025-03-03 09:44] VITALS: BP 128/67; PULSE 89; TEMP 36.6; O2SAT 95
[2025-03-03] MEDS: CYANOCOBALAMIN 1,000 MCG/ML VIAL 1000 MCG IM (09:55)
[2025-03-17 08:55] VITALS: BP 137/89; PULSE 78; TEMP 36.1; O2SAT 98
[2025-03-17] MEDS: CYANOCOBALAMIN 1,000 MCG/ML VIAL 1000 MCG IM (08:57)
== END 2025-03-25 23:59 | disposition home or self-care (01) ==
LOC: HEMC 07:39
PROVIDERS: PCP Family Medicine; Visit Provider Internal Medicine Hematology & Oncology
DX: D51.9 Vitamin B12 deficiency anemia, unspecified (principal); C34.92 Malignant neoplasm of unspecified part of left bronchus or lung
CPT/HCPCS: 96372; J3420

== ENCOUNTER 2025-04-14 07:46 | Outpatient (RCR) | payer MEDICARE, SELFPAY ==
[2025-03-31 09:03] VITALS: BP 144/76; PULSE 100; TEMP 36.6; O2SAT 95
[2025-03-31] MEDS: CYANOCOBALAMIN 1,000 MCG/ML VIAL 1000 MCG IM (09:05)
[2025-04-14 09:11] VITALS: BP 138/79; PULSE 75; TEMP 36.6; O2SAT 92
[2025-04-14] MEDS: CYANOCOBALAMIN 1,000 MCG/ML VIAL 1000 MCG IM (09:11)
== END 2025-04-24 23:59 | disposition home or self-care (01) ==
LOC: HEMC 07:46
PROVIDERS: PCP Family Medicine; Visit Provider Internal Medicine Hematology & Oncology
DX: D51.9 Vitamin B12 deficiency anemia, unspecified (principal); C34.92 Malignant neoplasm of unspecified part of left bronchus or lung
CPT/HCPCS: 96372; J3420

== ENCOUNTER 2025-05-09 12:33 | Outpatient (OUT) | payer MEDICARE, SELFPAY ==
[2025-05-09 12:50] LABS: Hematocrit 44.5 % (36.0-48.0); Hemoglobin 14.5 g/dL (12.0-16.0); Immature Granulocytes Abs Auto 0.10 10^3/uL (0.00-0.03); Immature Granulocytes Pct Auto 0.9 % (0.0-0.5); Lymphocytes Absolute Auto 1.2 10^3/uL (1.2-3.8); Mean Corpuscular HGB Conc 32.6 g/dL (29.9-35.2); Mean Corpuscular Hemoglobin 29.2 pg (26.7-34.0); Mean Corpuscular Volume 89.7 fL (81.0-99.0); Platelet Count 240 10^3/uL (150-450); Red Blood Count 4.96 10^6/uL (4.20-5.40); White Blood Count 11.0 10^3/uL (4.0-11.0)
[2025-05-09 13:06] LABS: Alanine Aminotransferase 32 U/L (14-59); Albumin Globulin Ratio 0.8; Albumin Level 3.1 g/dL (3.4-5.0); Alkaline Phosphatase 95 U/L (46-116); Anion Gap 12.3; Aspartate Amino Transferase 12 U/L (15-37); Blood Urea Nitrogen 26.0 mg/dL (7.0-18.0); Calcium 7.2 mg/dL (8.5-10.1); Carbon Dioxide 31.8 mmol/L (21.0-32.0); Chloride 101 mmol/L (98-107); Estimated GFR (African America 58 (>=60 mL/min/1.73m^2); Estimated GFR (Non-African Ame 48 (>=60 mL/min/1.73m^2); Globulin 3.8 g/dL; Glucose 155 mg/dL (74-106); Potassium 4.1 mmol/L (3.5-5.1); Sodium 141 mmol/L (136-145); Total Protein 6.9 g/dL (6.4-8.2)
[2025-05-09 13:16] LABS: Iron 59.0 ug/dL (50.0-170.0); Percent Iron Saturation 17.8 %; Total Iron Binding Capacity 332.0 ug/dL (250.0-450.0)
[2025-05-10 04:07] LABS: Vitamin B12 889 pg/mL (232-1245)
== END 2025-05-09 12:34 | disposition home or self-care (01) ==
LOC: LAB 12:35
PROVIDERS: PCP Family Medicine; Visit Provider Internal Medicine Hematology & Oncology
DX: C34.92 Malignant neoplasm of unspecified part of left bronchus or lung (principal); D51.9 Vitamin B12 deficiency anemia, unspecified
CPT/HCPCS: 36415; 80053; 82607; 83540; 83550; 85025

== ENCOUNTER 2025-05-16 07:49 | Outpatient (RCR) | payer MEDICARE, SELFPAY ==
[2025-04-27 09:12] VITALS: BP 101/65; PULSE 96; TEMP 36.7; O2SAT 99
[2025-04-27] MEDS: CYANOCOBALAMIN 1,000 MCG/ML VIAL 1000 MCG IM (09:30)
[2025-05-12 09:06] VITALS: BP 154/87; PULSE 105; TEMP 36.4; O2SAT 94
[2025-05-12] MEDS: CYANOCOBALAMIN 1,000 MCG/ML VIAL 1000 MCG IM (09:14)
== END 2025-05-25 23:59 | disposition home or self-care (01) ==
LOC: HEMC 07:49
PROVIDERS: PCP Family Medicine; Visit Provider Internal Medicine Hematology & Oncology
DX: C34.92 Malignant neoplasm of unspecified part of left bronchus or lung (principal); D51.9 Vitamin B12 deficiency anemia, unspecified; Z90.710 Acquired absence of both cervix and uterus; Z87.891 Personal history of nicotine dependence; R05.3 Chronic cough; R07.89 Other chest pain
CPT/HCPCS: 80053; 82607; 83540; 83550; 96372; G0463; J3420

== ENCOUNTER 2025-06-23 08:58 | Outpatient (RCR) | payer MEDICARE, SELFPAY ==
[2025-05-26 11:19] VITALS: BP 120/82; PULSE 87; TEMP 36.8; O2SAT 94
[2025-05-26] MEDS: CYANOCOBALAMIN 1,000 MCG/ML VIAL 1000 MCG IM (11:21)
[2025-06-09 09:03] VITALS: BP 112/72; PULSE 89; TEMP 36.6; O2SAT 93
[2025-06-09] MEDS: CYANOCOBALAMIN 1,000 MCG/ML VIAL 1000 MCG IM (09:09)
[2025-06-23 09:00] VITALS: BP 118/72; PULSE 83; TEMP 36.4; O2SAT 93
[2025-06-23] MEDS: CYANOCOBALAMIN 1,000 MCG/ML VIAL 1000 MCG IM (09:04)
== END 2025-06-25 23:59 | disposition home or self-care (01) ==
LOC: HEMC 08:58
PROVIDERS: PCP Family Medicine; Visit Provider Internal Medicine Hematology & Oncology
DX: D51.9 Vitamin B12 deficiency anemia, unspecified (principal); C34.92 Malignant neoplasm of unspecified part of left bronchus or lung
CPT/HCPCS: 96372; J3420

== ENCOUNTER 2025-07-21 08:56 | Outpatient (RCR) | payer MEDICARE, SELFPAY ==
[2025-07-07 09:08] VITALS: BP 99/66; PULSE 98; TEMP 36.1; O2SAT 95
[2025-07-07] MEDS: CYANOCOBALAMIN 1,000 MCG/ML VIAL 1000 MCG IM (09:22)
[2025-07-21 09:01] VITALS: BP 125/73; PULSE 103; TEMP 36.4; O2SAT 96
[2025-07-21] MEDS: CYANOCOBALAMIN 1,000 MCG/ML VIAL 1000 MCG IM (09:11)
== END 2025-07-25 23:59 | disposition home or self-care (01) ==
LOC: HEMC 08:56
PROVIDERS: PCP Family Medicine; Visit Provider Internal Medicine Hematology & Oncology
DX: D51.9 Vitamin B12 deficiency anemia, unspecified (principal); C34.92 Malignant neoplasm of unspecified part of left bronchus or lung
CPT/HCPCS: 96372; J3420

== ENCOUNTER 2025-08-15 09:08 | Outpatient (RCR) | payer MEDICARE, SELFPAY ==
[2025-08-04 09:05] VITALS: BP 128/83; PULSE 98; TEMP 36.6; O2SAT 94
[2025-08-04] MEDS: CYANOCOBALAMIN 1,000 MCG/ML VIAL 1000 MCG SQ (09:14)
[2025-08-15] MEDS: CYANOCOBALAMIN 1,000 MCG/ML VIAL 1000 MCG IM (09:29)
== END 2025-08-25 23:59 | disposition home or self-care (01) ==
LOC: HEMC 09:08
PROVIDERS: PCP Family Medicine; Visit Provider Internal Medicine Hematology & Oncology
DX: D51.9 Vitamin B12 deficiency anemia, unspecified (principal); C34.92 Malignant neoplasm of unspecified part of left bronchus or lung; J43.9 Emphysema, unspecified; Z90.710 Acquired absence of both cervix and uterus; F17.210 Nicotine dependence, cigarettes, uncomplicated; R06.02 Shortness of breath; R05.3 Chronic cough; R07.89 Other chest pain; R91.8 Other nonspecific abnormal finding of lung field
CPT/HCPCS: 96372; G0463; J3420